=== PATIENT | female | born 1975 | race African-American/Black ===

== ENCOUNTER 2019-09-25 17:30 | Emergency (ER) | payer OTHER ==
[~2019-09-25] VITALS: Ht 160 cm; Wt 181.4 kg
--- OUTSIDE RECORDS SUMMARY | 2019-09-25 17:33 | XMS REPORT ---
[facility] Address Unknown Phone Unavailable Care Team Providers Care Chute Tapper Name Role Phone Unavailable Unavailable Payers Payer Name Policy Type Policy Number Effective Date Expiration Date Problems This patient has no known problems. Allergies, Adverse Reactions, Alerts Allergy Name Allergy Type Status Severity Reaction(s) Onset Date Inactive Date Treating Clinician Comments hydrocodone bit DA Active U 2018-07-14 00:00:00 acetaminophen DA Active U 2018-07-14 00:00:00 levofloxacin DA Active U 2018-07-14 00:00:00 hydrocodone bit DA Active U 2012-10-04 00:00:00 acetaminophen DA Active U 2012-10-04 00:00:00 levofloxacin DA Active U 2012-10-04 00:00:00 Medications This patient has no known medications.
--- OUTSIDE RECORDS SUMMARY | 2019-09-25 17:35 | XMS REPORT ---
Author Author Admin, [place] Organization Unknown Address Unknown Phone Unavailable PROBLEMS Condition Status Date Provider Notes Hypokalemia, mild active Edward Magañaian [place] Chronic pain syndrome active Edward Roa [place] Cerumen impaction, bilateral active Edward Magañaian [place] Well woman exam active Chuodilia Magañaian [place] BMI 50.0-59.9 active Edward Zoroastrianism [place] BMI 60.0-69.9, adult completed - Edward Magañaian [place] CHF exacerbation active Edward Magañaian [place] Dyspnea at rest active Edward Roa [place] Acute upper respiratory infection active Edward Magañaian [place] Screening for lipid disorder active Edward Magañaian [place] Screening for diabetes mellitus active Edward Magañaian [place] GERD active Edward Magañaian [place] Diabetes mellitus type II active Edward Magañaian [place] Urinary retention active Edward Magañaian [place] Ascites active Edward Roa [place] Abdominal pain, chronic active Edward Magañaian [place] Abdominal distension active Edward Roa [place] Mood Disorder, NOS active Toma Woods Suicidal ideation active Edward Delgado Depression, major active Edward Delgado COPD with exacerbation active Edward Delgado BMI 50.0-59.9 completed - Tiny Vazquez Mckeon Chronic bronchitis active Edward Delgado Breast abnormal findings active Edward Delgado Otitis media, acute completed - Tit[place]veland Calderón MORBID OBESITY active Edwin Umana Candidal vaginitis completed - [place] Sommermi SLEEP APNEA active Comfort Trevino CHF active Comfort Trevino CHRONIC OBSTRUCTIVE PULMONARY DISEASE, ACUTE EXACERBATION completed - Comfort Trevino LOW BACK PAIN active Thea Puppala DEPENDENT EDEMA, LEGS active Annemarie Gaffney HEARING DEFICIT active Baljinderniesha Isabel BLURRED VISION active Baljinder Chalo EAR PAIN, RIGHT completed - Titi Kaitlynn MUSCLE SPASM completed - Titi Kaitlynn HYPERTENSION active Gill Tomlinsondasonia SARCOIDOSIS active Gill Villafuerte NICOTINE ADDICTION active Annemarie Gaffney COPD active Annemarie Gaffney ENCOUNTERS Date Type Provider Location Encounter Diagnosis - Ambulatory Encounter Satinder Delgado [facility] Hypokalemia, mild - Ambulatory Encounter Edward Delgado [facility] UNK - Ambulatory Encounter LSJ Lab Support Desktop LinkLogic Edward Baroneka Zoroastrianism [place] [facility] UNK - Ambulatory Encounter F[facility] - [facility] Encounter Fax Status [facility] UNK - Ambulatory Encounter Fax Status [facility] UNK - Ambulatory Encounter Fax Status [facility] UNK - Ambulatory Encounter Edward Roa [place] Edward Magañaian [place] [facility] UNK - Ambulatory Encounter Edward Roa Nnabuinasir Magañaian [place] [facility] UNK - Ambulatory Encounter Edward Roa [place] Edward Zoroastrianism [place] [facility] UNK - Ambulatory Encounter Satinder Roa [place] Edward Roa [place] Sheryl Odonnell [facility] UNK - Ambulatory Encounter Comfort Pedersen MedAdherence [facility] UNK - Ambulatory Encounter Comfort Christianson MedAdherence [facility] UNK - Ambulatory Encounter Tiara Christianson MedAdherence [facility] UNK - Ambulatory Encounter Edward [place] Edward Roa [place] [facility] - [facility]iris [facility] - Ambulatory Encounter Chuodilia Zoroastrianism [place] Gautamwlinda Zoroastrianism [place] LinkLogic [facility] UNK - Ambulatory Encounter Comfort Christianson MedAdherence [facility] UNK - Ambulatory Encounter Chuodilia Zoroastrianism [place] Chuodilia Zoroastrianism [place] [facility] UNK - Ambulatory Encounter Chukkavin Zoroastrianism [place] Chuvidhyawlinda Zoroastrianism [place] [facility] UNK - Ambulatory Encounter Chukkavin Zoroastrianism [place] Chuvidhyawlinda Zoroastrianism [place] [facility] UNK - Ambulatory Encounter Satinder Leon Zoroastrianism [place] Chukwuekathya Zoroastrianism [place] [facility] Chronic pain syndrome - Ambulatory Encounter Chukkavin Zoroastrianism [place] Chukwuekathya Zoroastrianism [place] [facility] UNK - Ambulatory Encounter LSJ Lab Support Desktop LinkLogic Jamarkwlinda Zoroastrianism [place] Chukwuekathya Zoroastrianism [place] [facility] UNK - Ambulatory Encounter Chukkavin Zoroastrianism [place] Jamarkwuekathya Zoroastrianism [place] [facility] UNK - Ambulatory Encounter Chukkavin Zoroastrianism [place] Chukwlinda Zoroastrianism [place] [facility] UNK - Ambulatory Encounter Comfort Leon Zoroastrianism [place] Roa [place] Osorio Benítez [facility] Well woman examCerumen impaction, bilateral - Ambulatory Encounter Satinder Christianson MedAdherence [facility] UNK - Ambulatory Encounter Satinder Christianson MedAdherence Eusebia Gagnon [employer] UNK - Ambulatory Encounter Satinder Christianson MedAdherence Chukwfabiánmejose j Magañaian [place] Edward Roa [place] Eusebia Gagnon [facility] UNK - Ambulatory Encounter Satinder Christianson MedAdherence [facility] UNK - Ambulatory Encounter Tiara Christianson MedAdherence [facility] UNK - Ambulatory Encounter Edward Roa [place] Edward Magañaian [place] LinkLogic [facility] UNK - Ambulatory Encounter Edward Whiteabuinasir Florezwlinda Zoroastrianism [place] LinkLogic [facility] UNK - Ambulatory Encounter Satinder Christianson MedAdherence [facility] UNK - Ambulatory Encounter Satinder Harman LinkLogic [facility] UNK - Ambulatory Encounter Fax Status LinkLogic [facility] UNK - Ambulatory Encounter Fax Status LinkLogic [facility] UNK - Ambulatory Encounter Fax Status LinkLogic [facility] UNK - Ambulatory Encounter Fax Status LinkLogic [facility] UNK - Ambulatory Encounter Fax Status LinkLogic [facility] UNK - Ambulatory Encounter Fax Status [facility] Services UNK - Ambulatory Encounter Satinder Harman Jonelle Hameedna [facility] UNK - Ambulatory Encounter Tiara Christianson MedAdherence Satinder Enegl [facility] Contact Center UNK - Ambulatory Encounter Kimberly Magañaian [place] Edward Roa [place] [facility] Contact Center UNK - Ambulatory Encounter Satinder Christianson MedAdherence [facility] UNK - Ambulatory Encounter Satinder Harman [facility]K - Ambulatory Encounter Fax Status [facility] Services UNK - Ambulatory Encounter Lo Esquivel Tiara Christianson MedAdherence [facility] UNK - Ambulatory Encounter Edward Roa [place] Edward Zoroastrianism [place] LinkLogic [facility] UNK - Ambulatory Encounter Edward Zoroastrianism [place] Edward Zoroastrianism [place] LinkLogic [facility] UNK - Ambulatory Encounter Chuvidhyawlinda Zoroastrianism [place] Edward Zoroastrianism [place] [facility] UNK - Ambulatory Encounter Chuodilia Zoroastrianism [place] Edward Zoroastrianism [place] [facility] UNK - Ambulatory Encounter Chukkavin Zoroastrianism [place] Chukwuemejose j Whiteabuinasir [facility] UNK - Ambulatory Encounter Lo Esquivel Stephanie Roldankwuemejose j Whiteabuinasir Florezwuemejose j Whiteabuinasir [facility] BMI 60.0-69.9, adultBMI 50.0-59.9 - Ambulatory Encounter Alayna Nava [facility] Services UNK - Ambulatory Encounter Kayla Ruel [facility] UNK - Ambulatory Encounter Kayla Ruel [facility] UNK - Ambulatory Encounter Edward Roldankwuemejose j Byoceuinasir Kaylakaylin Lipscomb [facility] UNK - Ambulatory Encounter Satinder Christianson MedAdherence Kayla Roldankwuemejose j Roldankwuemejose j Reich [facility] UNK - Ambulatory Encounter Fax Status [facility] UNK - Ambulatory Encounter Fax Status [facility] UNK - Ambulatory Encounter Fax Status [facility] UNK - Ambulatory Encounter Fax Status [facility] UNK - Ambulatory Encounter Bhavya Pedersen MedAdherence Clementine Velasquez [facility] UNK - Ambulatory Encounter Edward Florezwlinda Boyceuinasir [facility] UNK - Ambulatory Encounter Ewdard Boyceuinasir [facility] UNK - Ambulatory Encounter Edward [place] Edward Zoroastrianism [place] [facility] UNK - Ambulatory Encounter Comfort Roa [place] Edward Zoroastrianism [place] [facility] Dyspnea at restCHF exacerbation - Ambulatory Encounter Tiny Vazquez Mckeon Tiny Vazquez Mckeon [facility] - [facility]ulatory Encounter Tiny Vazquez Mckeon Tiny Vazquez Mckeon Violette Yuri [facility] BMI 50.0-59.9BMI 60.0-69.9, adult - Ambulatory Encounter Kayla Lipscomb [facility] UNK - Ambulatory Encounter Satinder Christianson [facility] Francesca Potts [facility] Contact Center UNK - Ambulatory Encounter Violette Lipscomb [facility] UNK - Ambulatory Encounter Edward [place] [facility] [place] [facility] - [facility]ulatory Encounter Edward Zoroastrianism [place] Edward Zoroastrianism [place] [facility] Practice UNK - Ambulatory Encounter Edward Magañaian [place] Edward Zoroastrianism [place] [facility] UNK - Ambulatory Encounter Edward [place] Edward Magañaian [place] [facility] UNK - Ambulatory Encounter Edward [place] Edward Zoroastrianism [place] [facility] UNK - Ambulatory Encounter iGll Florezwlinda Roa [place] Edward Magañaian [place] Violette Yuri Bakereca Suman [facility] Acute upper respiratory infection - Ambulatory Encounter Bhavya Pedersen MedAdherence [facility] UNK - Ambulatory Encounter Satinder Harman LinkLogic [facility] UNK - Ambulatory Encounter Bhavya Pedersen [facility] UNK - Ambulatory Encounter Comfort Trevino [facility] UNK - Ambulatory [facility] - [facility]ulatory Encounter [facility] - [facility]ulatory Encounter Fax [facility] UNK - Ambulatory Encounter Fax [facility] UNK - Ambulatory Encounter Alayna Chapman [facility] UNK - Ambulatory Encounter Edward [place] Edward Zoroastrianism [place] [facility] UNK - Ambulatory Encounter Edward [place] Edward Zoroastrianism [place] [facility] UNK - Ambulatory Encounter Edward [place] Edward Zoroastrianism [place] [facility] UNK - Ambulatory Encounter Satinder Roa [place] Chukwuemeka Zoroastrianism [place] Priya Mars [facility] UNK - Ambulatory Encounter Parris Oleary [facility] UNK - Ambulatory Encounter Chukwuemejose j Zoroastrianism [place] Chukwuemejose j Zoroastrianism [place] LinkLogic [facility] UNK - Ambulatory Encounter Bhavya Bermudezo MedAdherence Kirsten Ibarra Chukwuemeka Zoroastrianism [place] Chukwuemejose j Zoroastrianism [place] Raysa Potts [facility] Contact Center UNK - Ambulatory Encounter Chukwuemejose j Zoroastrianism [place] Chukwuemejose j Zoroastrianism [place] [facility] UNK - Ambulatory Encounter Chukwuemejose j Zoroastrianism [place] Chukwuemejose j Zoroastrianism [place] [facility] UNK - Ambulatory Encounter Chukwuemejose j Zoroastrianism [place] Chukwuemejose j Zoroastrianism [place] [facility] UNK - Ambulatory Encounter Chukwuemejose j Zoroastrianism [place] Chukwuemejose j Zoroastrianism [place] [facility] UNK - Ambulatory Encounter Gill Chapman Chukwuemejose j Zoroastrianism [place] Chukwuemejose j Zoroastrianism [place] [facility] UNK - Ambulatory Encounter Bhavya Pedersen MedAdherence [facility] UNK - Ambulatory Encounter Kayla Serrano [facility] Center UNK - Ambulatory Encounter Chukwuemejose j Zoroastrianism [place] Chukwuemejose j Zoroastrianism [place] [facility] UNK - Ambulatory Encounter Tabjessica Chang [facility] UNK - Ambulatory Encounter Chukwuekathya Zoroastrianism [place] Chukwfabiánmejose j Zoroastrianism [place] [facility] UNK - Ambulatory Encounter Chukwuemejose j Zoroastrianism [place] Chukwuemejose j Zoroastrianism [place] [facility] UNK - Ambulatory Encounter LSJ Lab Support Desktop LinkLogic Tab Florezwlinda Zoroastrianism [place] Chukwuemejose j Zoroastrianism [place] [facility] UNK - Ambulatory Encounter Chukwlinda Zoroastrianism [place] Jamarkwlinda Zoroastrianism [place] [facility] UNK - Ambulatory Encounter Chukwlinda Zoroastrianism [place] Chukwuekathya Zoroastrianism [place] [facility] UNK - Ambulatory Encounter Chukwuekathya Zoroastrianism [place] Chukwuemejose j Zoroastrianism [place] [facility] UNK - Ambulatory Encounter Comfort Christianson MedAdherence Chukwuekathya Zoroastrianism [place] Chukwuemejose j Zoroastrianism [place] Marielena Reich [facility] Screening for diabetes mellitusScreening for lipid disorder - Ambulatory Encounter Chukwlinda Zoroastrianism [place] Chukwlinda Zoroastrianism [place] [facility] GERD - Ambulatory Encounter Chukwlinda Zoroastrianism [place] Gautamwlinda Zoroastrianism Nnab[place]asir Isabel [facility] UNK - Ambulatory Encounter Chukkavin Zoroastrianism [place] Edward Zoroastrianism [place] [facility] UNK - Ambulatory Encounter Tab Leon Zoroastrianism [place] Chuodilia Zoroastrianism [place] Vivian Oleg Mary [facility] Contact Center UNK - Ambulatory Encounter Chukwlinda Zoroastrianism [place] Edward Zoroastrianism [place] [facility] UNK - Ambulatory Encounter Chukwlinda Zoroastrianism [place] Gautamwlinda Zoroastrianism [place] [facility] UNK - Ambulatory Encounter Chukkavin Zoroastrianism [place] Chukwlinda Zoroastrianism [place] [facility] UNK - Ambulatory Encounter Comfort Leon Zoroastrianism [place] Gautamwfabiánmejose j Zoroastrianism [place] [facility] Diabetes mellitus type II - Ambulatory Encounter Chuodilia Zoroastrianism [place] Gautamwlinda Zoroastrianism [place] LinkLogic [facility] UNK - Ambulatory Encounter Chukkavin Zoroastrianism [place] Jamarkwuekathya Zoroastrianism [place] LinkLogic [facility] UNK - Ambulatory Encounter Loly Winslow [facility] UNK - Ambulatory Encounter Chukwlinda Zoroastrianism [place] Gautamwlinda Zoroastrianism [place] LinkLogic [facility] UNK - Ambulatory Encounter Chuodilia Zoroastrianism [place] Edward Zoroastrianism [place] [facility] UNK - Ambulatory Encounter Chukwlinda Zoroastrianism [place] Chuodilia Zoroastrianism [place] [facility] UNK - Ambulatory Encounter Chukkavin Zoroastrianism [place] Chuodilia Zoroastrianism [place] [facility] UNK - Ambulatory Encounter Chuodilia Zoroastrianism [place] Edward Zoroastrianism [place] [facility] UNK - Ambulatory Encounter Satinder Florezwlinda Zoroastrianism [place] Edward Zoroastrianism [place] [facility] UNK - Ambulatory Encounter Tiara Christianson MedAdherence [facility] UNK - Ambulatory Encounter Bhavya Pedersen MedAdherence [facility] UNK - Ambulatory Encounter Bhavya Pedersen MedAdherence LinkLogic [facility] UNK - Ambulatory Encounter Titi Kaitlynn Titi Kaitlynn LinkLogic [facility] UNK - Ambulatory Encounter Chuodilia Zoroastrianism [place] Edward Zoroastrianism [place] LinkLogic [facility] UNK - Ambulatory Encounter Chuodilia Zoroastrianism [place] Edward Zoroastrianism [place] LinkLogic [facility] UNK - Ambulatory Encounter Chukkavin Zoroastrianism [place] Edward Zoroastrianism [place] [facility] UNK - Ambulatory Encounter Chukkavin Zoroastrianism [place] Chuodilia Zoroastrianism [place] [facility] UNK - Ambulatory Encounter Edward Zoroastrianism [place] Chuodilia Zoroastrianism [place] [facility] UNK - Ambulatory Encounter Edward Zoroastrianism [place] Edward Zoroastrianism [place] [facility] UNK - Ambulatory Encounter Comfort Krausa Jamarodilia Zoroastrianism [place] [facility] Zoroastrianism [place] [facility] Abdominal distensionAbdominal pain, chronicAscitesUrinary retention - Ambulatory Encounter Tiara Christianson MedAdherence [facility] UNK - Ambulatory Encounter Tiara Christianson MedAdherence [facility] - Ambulatory Encounter Tiara Christianson [facility]herence [facility] UNK - Ambulatory Encounter Comfort Trevino [facility] UNK - Ambulatory Encounter Mae Rodney [facility] UNK - Ambulatory Encounter Fax Status [facility]ic [facility] UNK - Ambulatory Encounter Fax Status [facility]ic [facility] UNK - Ambulatory Encounter Fax Status Link[facility]ic [facility] UNK - Ambulatory Encounter Fax Status Link[facility] UNK - Ambulatory Encounter Fax Status Link[facility]ic [facility] UNK - Ambulatory Encounter Fax Status [facility]ic [facility] UNK - Ambulatory Encounter Edward Zoroastrianism [place] Gautamwlinda Zoroastrianism [place] [facility] UNK - Ambulatory Encounter Chuodilia Zoroastrianism [place] Edward Zoroastrianism [place] [facility] UNK - Ambulatory Encounter Edward Zoroastrianism [place] Edward Zoroastrianism [place] [facility] UNK - Ambulatory Encounter Toma Woods [facility] Mood Disorder, NOS - Ambulatory Encounter Lo Josephuekathya Magañaian [place] Edward Zoroastrianism [place] Vivian Matthews [facility] Depression, majorSuicidal ideation - Ambulatory Encounter Comfort Trevino LinkLog [facility] UNK - Ambulatory [facility] - Ambulatory Encounter Bhavya Pedersen MedAdherence [facility] UNK - Ambulatory Encounter Bhavya Pedersen MedAdherence LinkLogic [facility] UNK - Ambulatory Encounter Edward Zoroastrianism [place] Edward Zoroastrianism [place] [facility] UNK - Ambulatory Encounter Edward Zoroastrianism [place] Gautamwlinda Zoroastrianism [place] [facility] UNK - Ambulatory Encounter Edward Zoroastrianism [place] Edward Zoroastrianism [place] [facility] UNK - Ambulatory Encounter Edward Zoroastrianism [place] Gautamwlinda Zoroastrianism [place] [facility] UNK - Ambulatory Encounter Chuodilia Zoroastrianism [place] Gautamwlinda Zoroastrianism [place] [facility] UNK - Ambulatory Encounter Gill Florezwuekathya Zoroastrianism [place] Gautamwlinda Zoroastrianism [place] [facility] UNK - Ambulatory Encounter Loly Winslow [facility] UNK - Ambulatory Encounter Tiara Christianson [facility] - [facility]ulatory Encounter Edward Roa [place] Edward Zoroastrianism [place] [facility] UNK - Ambulatory Encounter Bhavya Pedersen MedAdherence [facility] UNK - Ambulatory Encounter Bhavya Pedersen MedAdherence LinkLogic [facility] UNK - Ambulatory Encounter Edward [place] Edward Zoroastrianism [place] Tab Matthews [facility] UNK - Ambulatory Encounter Comfort Trevino LinkLogic [facility] UNK - Ambulatory Encounter Edward Magañaian [place] Edward Zoroastrianism [place] [facility] UNK - Ambulatory Encounter Edward Zoroastrianism [place] Gautamwlinda Zoroastrianism [place] [facility] UNK - Ambulatory Encounter Edward Whiteabuinasir Roa [place] [facility] UNK - Ambulatory Encounter Edward Whiteabjaimie Roa [place] [facility] UNK - Ambulatory Encounter Comfort Roa [place] Edward Roa [place] [facility] COPD with exacerbation - Ambulatory Encounter Tiara Christianson MedAdherence [facility] UNK - Ambulatory Encounter Tiara Christianson MedAdherfaheem Kaminskicey [facility] Services UNK - Ambulatory Encounter Tiara Christianson MedAdherence [facility] UNK - Ambulatory Encounter Edward Whiteabjaimie Roa [place] [facility] UNK - Ambulatory Encounter Edward Whiteabjaimie Leon Zoroastrianism [place] [facility] UNK - Ambulatory Encounter Gill Whiteabuinasir Whiteabuife [facility] UNK - Ambulatory Encounter Loly Winslow Donna Sabiha [facility] UNK - Ambulatory Encounter Edward Whiteabuinasir Roa [place] [facility] UNK - Ambulatory Encounter Loly Winslow Donna Sabiha [facility] UNK - Ambulatory Encounter Fax Status [facility]ic [facility] UNK - Ambulatory Encounter Fax Status LinkLogic [facility] UNK - Ambulatory Encounter Fax Status LinkLogic [facility] UNK - Ambulatory Encounter Fax Status [facility]Logic [facility] UNK - Ambulatory Encounter Fax Status LinkLogic [facility] UNK - Ambulatory Encounter Fax Status LinkLogic [facility] UNK - Ambulatory Encounter Titi Kaitlynn Titi Kaitlynn [facility] UNK - Ambulatory Encounter Titi Kaitlynn Titi Kaitlynn [facility] UNK - Ambulatory Encounter Titi Kaitlynn Titi Kaitlynn [facility] UNK - Ambulatory Encounter Lo Gu Titi Kaitlynn Titi Kaitlynn [facility] MUSCLE SPASMEAR PAIN, RIGHTCandidal vaginitisOtitis media, acute - Ambulatory Encounter Satinder Gu [facility] UNK - Ambulatory Encounter Fax Status [facility]ic [facility] UNK - Ambulatory Encounter Fax Status LinkLogic [facility] UNK - Ambulatory Encounter Fax Status [facility]Logic [facility] UNK - Ambulatory Encounter Bhavya Palacio [facility] UNK - Ambulatory Encounter Edward Whiteabjaimie Whiteabuinasir [facility] UNK - Ambulatory Encounter Satinder Matthews [facility] Breast abnormal findingsChronic bronchitisBMI 50.0-59.9 - Ambulatory Encounter Comfort Trevino LinkLogic [facility] UNK - Ambulatory Encounter Tiara Christianson MedAdherence [facility] UNK - Ambulatory Encounter Tiara Christianson MedAdherence LinkLogic [facility] UNK - Ambulatory Encounter Bhavya Pedersen MedAdherence [facility] UNK - Ambulatory Encounter Bhavya Pedersen MedAdherence [facility] UNK - Ambulatory Encounter Madhumita Sierra [facility] UNK - Ambulatory Encounter Yonnyhubrooke Sierra [facility] UNK - Ambulatory Encounter Bhavya Pedersen MedAdherence Stephanie Hernandez [facility] Contact Center UNK - Ambulatory Encounter Madhumita Sierra [facility] UNK - Ambulatory Encounter Madhumita Sierra [facility] UNK - Ambulatory Encounter Madhumita Sierra [facility] UNK - Ambulatory Encounter Nupur Chong [facility] UNK - Ambulatory Encounter Nupur Chong [facility] UNK - Ambulatory Encounter Edwin Umana [facility] UNK - Ambulatory Encounter Edwin Umana [facility] UNK - Ambulatory Encounter Edwin Umana [facility] UNK - Ambulatory [facility] MORBID OBESITYOtitis media, acute - Ambulatory Encounter Yeimykaylin Beard [facility] UNK - Ambulatory Encounter Lo Esquivel [facility] UNK - Ambulatory Encounter Lo Lucasssica Gamino [facility] Candidal vaginitis - Ambulatory Encounter Lo Esquivel [facility] UNK - Ambulatory Encounter Breana Rosario [facility] UNK - Ambulatory Encounter Breana Rosario [facility] UNK - Ambulatory Encounter Mary Soto [facility] UNK - Ambulatory Encounter Fabricio Beard [facility] UNK - Ambulatory Encounter Bria Young [facility] UNK - [facility]ricio Beard [facility] - [facility]ulatory Encounter Gita Dewey [facility] UNK - Ambulatory Encounter Comfort Trevino [facility] UNK - Ambulatory Encounter [facility] Encounter Comfort Trevino [facility] UNK - Ambulatory Encounter Carmelina Gu [facility] UNK - Ambulatory Encounter Jan Johnson [facility] Expert UNK - Ambulatory Encounter Fax Status LinkLogic [facility] UNK - Ambulatory Encounter Fax Status LinkLogic [facility] UNK - Ambulatory Encounter Fax Status LinkLogic [facility] UNK - Ambulatory Encounter Deniz Lira [facility] UNK - [facility] - Ambulatory Encounter Comfort Trevino [facility] UNK - Ambulatory Encounter Comfort Trevino [facility] UNK - Ambulatory Encounter Comfort Trevino [facility] UNK - Ambulatory Encounter Fax Status Link[facility] UNK - Ambulatory Encounter Fax Status [facility] UNK - Ambulatory Encounter Comfort Trevino [facility] UNK - Ambulatory Encounter Fax Status [facility] UNK - Ambulatory Encounter Fax Status [facility] UNK - Ambulatory Encounter Comfort Trevino [facility] UNK - Ambulatory Encounter Comfort Trevino [facility] UNK - Ambulatory Encounter Comfort Trevino [facility] UNK - Ambulatory Encounter Comfort Trevino [facility] UNK - Ambulatory Encounter Kimberly Pedersen MedAdherfaheem Woodselia Gaston [facility] UNK - Ambulatory Encounter Kimberly Trevino [facility] UNK - Ambulatory Encounter Tab Chang [facility] UNK - Ambulatory Encounter Fax Status Link[facility] UNK - Ambulatory Encounter Fax Status [facility] UNK - Ambulatory Encounter Fax Status [facility] UNK - Ambulatory Encounter Kimberly Trevino [facility] UNK - Ambulatory Encounter Comfort Trevino [facility] UNK - Ambulatory Encounter Comfort Trevino [facility] - Ambulatory Encounter Fax Status LinkLogic [facility] UNK - Ambulatory Encounter Jneny Gaston [facility] UNK - Ambulatory Encounter Fax Status LinkLogic [facility] UNK - Ambulatory Encounter Fax Status [facility] UNK - Ambulatory Encounter Comfort Trevino [facility] UNK - Ambulatory Encounter Kimberly Trevino [facility] UNK - Ambulatory Encounter Comfort Trevino [facility]ic [facility] - [facility] Encounter [facility] - [facility]ulatory Encounter Gosia Trevino [facility] UNK - Ambulatory Encounter Comfort Trevino LinkLogedward Mayes [facility] UNK - Ambulatory Encounter Comfort Tellez [facility] CHRONIC OBSTRUCTIVE PULMONARY DISEASE, ACUTE EXACERBATIONCHFSLEEP APNEA - Ambulatory Encounter Gill [facility] - [facility] Encounter F[facility] UNK - Ambulatory Encounter Fax Status [facility] UNK - Ambulatory Encounter Fax Status LinkLogic [facility] UNK - Ambulatory Encounter Fax Status [facility] - Ambulatory Encounter Fax Status LinkLogic [facility] UNK - Ambulatory Encounter Fax Status LinkLogic [facility] UNK - Ambulatory Encounter Fax Status [facility] - Ambulatory Encounter Jenny Gaston [facility] UNK - Ambulatory Encounter Thea Patitopala [facility] [place] Rosalinda Ward [facility] LOW BACK PAIN - Ambulatory Encounter Sabra Mitchell [facility] UNK - Ambulatory Encounter Sabra Stephen [facility] UNK - Ambulatory Encounter Ernesto Gaffney [facility] DEPENDENT EDEMA, LEGS - Ambulatory Encounter Bhavya Pedersen MedAdherence [facility] UNK - Ambulatory Encounter Bhavya Pedersen [facility] UNK - Ambulatory Encounter Jonelle [facility] UNK - Ambulatory Encounter Jonelle [facility] UNK - Ambulatory Encounter Jonelle [facility] UNK - Ambulatory Encounter Jonelle [facility] UNK - Ambulatory Encounter Jonelle [facility] UNK - Ambulatory Encounter Malena Isabel [facility] UNK - Ambulatory Encounter Ernesto Matthews [facility] EAR PAIN, RIGHTBLURRED VISIONHEARING DEFICIT - Ambulatory Encounter Jehovah'S Witness Preload LinkLogic [facility] UNK - Ambulatory Encounter Jehovah'S Witness Preload LinkLogic [facility] UNK - Ambulatory Encounter Jehovah'S Witness Preload LinkLogic [facility] UNK - Ambulatory Encounter Jehovah'S Witness Preload LinkLogic [facility] UNK - Ambulatory Encounter Jehovah'S Witness Preload LinkLogic [facility] UNK - Ambulatory Encounter Jehovah'S Witness Preload LinkLog[facility] UNK - Ambulatory Encounter Jehovah'S Witness Preload LinkLogic [facility] UNK - Ambulatory Encounter Jehovah'S Witness Preload LinkLogic [facility] UNK - Ambulatory Encounter Jehovah'S Witness Preload [facility] UNK - Ambulatory Encounter Jehovah'S Witness Preload [facility]ic [facility] UNK - Ambulatory Encounter Jehovah'S Witness Preload [facility]ic [facility] UNK - Ambulatory Encounter Jehovah'S Witness Preload [facility]ic [facility] UNK - Ambulatory Encounter Jehovah'S Witness Preload [facility]ic [facility] UNK - Ambulatory Encounter Jehovah'S Witness Preload [facility]ic [facility] UNK - Ambulatory Encounter Jehovah'S Witness Preload [facility]ic [facility] UNK - Ambulatory Encounter Jehovah'S Witness Preload [facility]ic [facility] UNK - Ambulatory Encounter Jehovah'S Witness Preload [facility]ic [facility] UNK - Ambulatory Encounter Jehovah'S Witness Preload [facility]ic [facility] UNK - Ambulatory Encounter Jehovah'S Witness Preload [facility]ic [facility] UNK - Ambulatory Encounter Jehovah'S Witness Preload [facility]ic [facility] UNK - Ambulatory Encounter Jehovah'S Witness Preload [facility]ic [facility] UNK - Ambulatory Encounter Jehovah'S Witness Preload [facility]ic [facility] UNK - Ambulatory Encounter Jehovah'S Witness Preload [facility]ic [facility] UNK - Ambulatory Encounter Jehovah'S Witness Preload [facility] UNK - Ambulatory Encounter Jehovah'S Witness Preload [facility] UNK - Ambulatory Encounter Jehovah'S Witness Preload [facility] UNK - Ambulatory Encounter Jehovah'S Witness Preload [facility] UNK - Ambulatory Encounter Jehovah'S Witness Preload [facility] UNK - Ambulatory Encounter Jehovah'S Witness Preload [facility]ic [facility] UNK - Ambulatory Encounter Jehovah'S Witness Preload [facility]ic [facility] UNK - Ambulatory Encounter Jehovah'S Witness Preload [facility] UNK - Ambulatory Encounter Jehovah'S Witness Preload Link[facility]ic [facility] UNK - Ambulatory Encounter Jehovah'S Witness Preload [facility] UNK - Ambulatory Encounter Jehovah'S Witness Preload LinkLogic [facility] UNK - Ambulatory Encounter Jehovah'S Witness Preload LinkLogic [facility] UNK - Ambulatory Encounter Jehovah'S Witness Preload Link[facility]ic [facility] UNK - Ambulatory Encounter Jehovah'S Witness Preload [facility] UNK - Ambulatory Encounter Jehovah'S Witness Preload LinkLogic [facility] UNK - Ambulatory Encounter Jehovah'S Witness Preload LinkLogic [facility] UNK - Ambulatory Encounter Jehovah'S Witness Preload LinkLogic [facility] UNK - Ambulatory Encounter Jehovah'S Witness Preload LinkLogic [facility] UNK - Ambulatory Encounter Jehovah'S Witness Preload LinkLogic [facility] UNK - Ambulatory Encounter Jehovah'S Witness Preload LinkLog[facility] UNK - Ambulatory Encounter Jehovah'S Witness Preload Link[facility] UNK - Ambulatory Encounter Jehovah'S Witness Preload LinkLogic [facility] UNK - Ambulatory Encounter Jehovah'S Witness Preload Link[facility] UNK - Ambulatory Encounter Jehovah'S Witness Preload [facility] UNK - Ambulatory Encounter Jehovah'S Witness Preload [facility]ic [facility] UNK - Ambulatory Encounter Jehovah'S Witness Preload LinkLogic [facility] UNK - Ambulatory Encounter Jehovah'S Witness Preload LinkLog[facility] UNK - Ambulatory Encounter Jehovah'S Witness Preload [facility] UNK - Ambulatory Encounter Jehovah'S Witness Preload [facility] UNK - Ambulatory Encounter Jehovah'S Witness Preload LinkLogic [facility] UNK - Ambulatory Encounter Jehovah'S Witness Preload LinkLog[facility] UNK - Ambulatory Encounter Jehovah'S Witness Preload Link[facility] UNK - Ambulatory Encounter Jehovah'S Witness Preload LinkLog[facility] UNK - Ambulatory Encounter Jehovah'S Witness Preload LinkLog[facility] UNK - Ambulatory Encounter Jehovah'S Witness Preload Link[facility] UNK - Ambulatory Encounter Jehovah'S Witness Preload [facility] UNK - Ambulatory Encounter Jehovah'S Witness Preload Link[facility] UNK - Ambulatory Encounter Jehovah'S Witness Preload LinkLogic [facility] UNK - Ambulatory Encounter Jehovah'S Witness Preload Link[facility] UNK - Ambulatory Encounter Jehovah'S Witness Preload Link[facility] UNK - Ambulatory Encounter Jehovah'S Witness Preload LinkLogic [facility] UNK - Ambulatory Encounter Jehovah'S Witness Preload LinkLogic [facility] UNK - Ambulatory Encounter Jehovah'S Witness Preload [facility]ic [facility] UNK - Ambulatory Encounter Jehovah'S Witness Preload [facility] UNK - Ambulatory Encounter Jehovah'S Witness Preload [facility] UNK - Ambulatory Encounter Sharpetaniya Gaffney [facility] UNK - Ambulatory Encounter Jehovah'S Witness Preload [facility] UNK - Ambulatory Encounter Jehovah'S Witness Preload [facility] UNK - Ambulatory Encounter Jehovah'S Witness Preload LinkLogic [facility] UNK - Ambulatory Encounter Jehovah'S Witness Preload LinkLogic [facility] UNK - Ambulatory Encounter Jehovah'S Witness Preload [facility]ic [facility] UNK - Ambulatory Encounter Jehovah'S Witness Preload Link[facility] UNK - Ambulatory Encounter Jehovah'S Witness Preload [facility] UNK - Ambulatory Encounter Jehovah'S Witness Preload Link[facility]ic [facility] UNK - Ambulatory Encounter Jehovah'S Witness Preload [facility] UNK - Ambulatory Encounter Jehovah'S Witness Preload [facility] UNK - Ambulatory Encounter Jehovah'S Witness Preload Link[facility]ic [facility] UNK - Ambulatory Encounter Jehovah'S Witness Preload [facility] UNK - Ambulatory Encounter Jehovah'S Witness Preload [facility] UNK - Ambulatory Encounter Jehovah'S Witness Preload Link[facility]ic [facility] UNK - Ambulatory Encounter Jehovah'S Witness Preload [facility]ic [facility] UNK - Ambulatory Encounter Jehovah'S Witness Preload [facility] UNK - Ambulatory Encounter Jehovah'S Witness Preload [facility] UNK - Ambulatory Encounter Jehovah'S Witness Preload [facility] UNK - Ambulatory Encounter Jehovah'S Witness Preload [facility] UNK - Ambulatory Encounter Jehovah'S Witness Preload [facility] UNK - Ambulatory Encounter Jehovah'S Witness Preload [facility] UNK - Ambulatory Encounter Jehovah'S Witness Preload [facility] UNK - Ambulatory Encounter Jehovah'S Witness Preload [facility]ic [facility] UNK - Ambulatory Encounter Jehovah'S Witness Preload [facility] UNK - Ambulatory Encounter Jehovah'S Witness Preload [facility] UNK - Ambulatory Encounter Jehovah'S Witness Preload [facility] UNK - Ambulatory Encounter Jehovah'S Witness Preload [facility] UNK - Ambulatory Encounter Jehovah'S Witness Preload [facility]ic [facility] UNK - Ambulatory Encounter Jehovah'S Witness Preload [facility]ic [facility] UNK - Ambulatory Encounter Jehovah'S Witness Preload [facility]ic [facility] UNK - Ambulatory Encounter Jehovah'S Witness Preload Link[facility]ic [facility] UNK - Ambulatory Encounter Jehovah'S Witness Preload Link[facility]ic [facility] UNK - Ambulatory Encounter Jehovah'S Witness Preload Link[facility]ic [facility] UNK - Ambulatory Encounter Jehovah'S Witness Preload Link[facility]ic [facility] UNK - Ambulatory Encounter Jehovah'S Witness Preload [facility]ic [facility] UNK - Ambulatory Encounter Jehovah'S Witness Preload [facility] UNK - Ambulatory Encounter Jehovah'S Witness Preload [facility]ic [facility] UNK - Ambulatory Encounter Jehovah'S Witness Preload Link[facility] UNK - Ambulatory Encounter Jehovah'S Witness Preload Link[facility] UNK - Ambulatory Encounter Jehovah'S Witness Preload Link[facility] UNK - Ambulatory Encounter Jehovah'S Witness [facility]reload [facility] UNK - Ambulatory Encounter Colleen [facility] UNK - Ambulatory Encounter Sharpetaniya Barbozauyen [facility] UNK - Ambulatory Encounter Gill Villafuerte [facility] Sharpe Vo Sharpe [facility] UNK - Ambulatory Encounter Gill Macias [facility] Sharpe Vo Sharpe [facility] UNK - Ambulatory Encounter Gill Dalton [facility] UNK - Ambulatory Encounter Annemarie Barbozauyen Gulshan Pedersen [facility] UN[facility] - [facility]ulatory Encounter [facility]afuerte [facility] - Ambulatory Encounter Gill Sharpe Vo Annemarie Gutierrez [facility] COPDNICOTINE ADDICTIONSARCOIDOSISHYPERTENSIONMUSCLE SPASM - Ambulatory Encounter [facility] UNK VITAL SIGNS No Information Available ALLERGIES Allergy Name Onset Date Reaction Criticality Status VICODIN swelling, rashes all over skin High Criticality active LEVAQUIN Breakout in Hives High Criticality active REASON FOR REFERRAL Start Date - End Date Service - Cardiology - External - Xray - Pulmonology - External - Xray - Chest - PA & Lat - InHouse RESULTS Date Observation Value Provider Reference Range Interpretation Location alanine aminotransferase (SGPT), serum 50 1/L LinkLogic 0-32 High " aspartate aminotransferase (SGOT), serum 36 1/L [facility] 0-40 " alkaline phosphatase, serum 96 1/L [facility] 39-117 " bilirubin, serum, total 0.2 mg/dL [facility]Logic 0.0-1.2 " albumin/globulin ratio, serum 1.5 [facility] 1.2-2.2 " globulin, serum 3.3 [facility] 1.5-4.5 " albumin, serum 5.1 g/dL [facility] 3.5-5.5 " protein, total, serum 8.4 g/dL [facility] 6.0-8.5 " calcium, serum 9.9 mg/dL [facility] 8.7-10.2 " carbon dioxide, venous blood 31 mmol/L [facility] 20-29 High " chloride, serum 86 mmol/L [facility] 96-106 Low " potassium, serum 3.3 mmol/L [facility] 3.5-5.2 Low " sodium, serum 141 mmol/L [facility]ic 134-144 " urea nitrogen/creatinine ratio, serum 18 [facility] 9-23 " eGFR if 91 mL/min/((173/100).m2) [facility]ic >59 " Estimated Glomerular Filtration Rate (calc) 79 mL/min/((173/100).m2) [facility]ic >59 " creatinine, serum 0.88 mg/dL [facility] 0.57-1.00 " urea nitrogen, blood 16 mg/dL [facility] 6-24 " blood glucose, random 182 mg/dL [facility] 65-99 High " immature granulocytes, percentage of total cells, blood 1 % [facility]ic Not Estab. " basophil count, absolute 0.0 x10E3/uL [facility] 0.0-0.2 " Eosinophil Absolute Count 0.2 X10E3/UL [facility] 0.0-0.4 " monocyte count, blood, automated 0.5 X10E3/UL [facility] 0.1-0.9 " lymphocyte count, blood, automated 2.1 X10E3/UL [facility] 0.7-3.1 " Absolute Neutrophils 9.0 X10E3/UL [facility]ic 1.4-7.0 High " basophils as percent of blood leukocytes 0 % [facility]Logic Not Estab. " eosinophils as percent of blood leukocytes 1 % [facility]ic Not Estab. " monocytes as percent of blood leukocytes 4 % [facility]ic Not Estab. " lymphocytes as percent of blood leukocytes 17 % [facility]ic Not Estab. " neutrophils as percent of blood leukocytes 77 % [facility]ic Not Estab. " platelet count 592 X10E3/UL [facility] 150-450 High " red blood cell distribution width 13.7 % [facility] 12.3-15.4 " mean corpuscular hemoglobin concentration, RBC 32.4 G/DL [facility] 31.5-35.7 " mean corpuscular hemoglobin, RBC 29.1 pg [facility] 26.6-33.0 " mean corpuscular volume, RBC 90 fL [facility] 79-97 " hematocrit, blood 36.7 % [facility] 34.0-46.6 " hemoglobin, blood 11.9 g/dL [facility] 11.1-15.9 " erythrocyte (RBC) count 4.09 X10E6/UL [facility] 3.77-5.28 " leukocyte count, blood 11.8 X10E3/UL [facility] 3.4-10.8 High hemoglobin A1C, blood, as % of total hemoglobin 7.3 % Edward Delgado hepatitis B surface antigen Negative LinkLogic Negative " HIV-CMIA (Chemiluminescent Microparticle Immuno Assay) Non Reactive LinkLogic Non Reactive " rapid plasma reagin antibody, serum Non Reactive LinkLogic Non Reactive " hemoglobin A1C, blood, as % of total hemoglobin 8.0 % [facility] 4.8-5.6 High " microalbumin/creatinine ratio, urine <18.4 mg/g creat [facility] 0.0-30.0 " microalbumin/total urine volume <3.0 ug/mL [facility] Not Estab. " creatinine, random, urine 16.3 mg/dL [facility] Not Estab. " LDL cholesterol, serum 93 mg/dL [facility] 0-99 " very low density lipoproteins 51 mg/dL [facility] 5-40 High " HDL cholesterol, serum 50 mg/dL [facility] >39 " triglyceride, serum, fasting 255 mg/dL [facility] 0-149 High " cholesterol, serum 194 mg/dL [facility] 100-199 " alanine aminotransferase (SGPT), serum 41 1/L [facility] 0-32 High " aspartate aminotransferase (SGOT), serum 28 1/L [facility] 0-40 " alkaline phosphatase, serum 90 1/L [facility] 39-117 " bilirubin, serum, total <0.2 mg/dL [facility] 0.0-1.2 " albumin/globulin ratio, serum 1.5 [facility] 1.2-2.2 " globulin, serum 3.3 [facility]ic 1.5-4.5 " albumin, serum 4.8 g/dL [facility] 3.5-5.5 " protein, total, serum 8.1 g/dL [facility] 6.0-8.5 " calcium, serum 9.9 mg/dL [facility] 8.7-10.2 " carbon dioxide, venous blood 35 mmol/L [facility] 20-29 High " chloride, serum 86 mmol/L [facility] 96-106 Low " potassium, serum 3.7 mmol/L [facility] 3.5-5.2 " sodium, serum 139 mmol/L [facility] 134-144 " urea nitrogen/creatinine ratio, serum 16 [facility] 9-23 " eGFR if 85 mL/min/((173/100).m2) [facility] >59 " Estimated Glomerular Filtration Rate (calc) 74 mL/min/((173/100).m2) [facility]ic >59 " creatinine, serum 0.94 mg/dL [facility] 0.57-1.00 " urea nitrogen, blood 15 mg/dL [facility] 6-24 " blood glucose, random 176 mg/dL [facility] 65-99 High " immature granulocytes, percentage of total cells, blood 1 % [employer] Not Estab. " basophil count, absolute 0.0 x10E3/uL [facility] 0.0-0.2 " Eosinophil Absolute Count 0.3 X10E3/UL [facility] 0.0-0.4 " monocyte count, blood, automated 0.6 X10E3/UL [facility] 0.1-0.9 " lymphocyte count, blood, automated 2.4 X10E3/UL [facility] 0.7-3.1 " Absolute Neutrophils 9.7 X10E3/UL [facility] 1.4-7.0 High " basophils as percent of blood leukocytes 0 % [employer] Not Estab. " eosinophils as percent of blood leukocytes 2 % [employer] Not Estab. " monocytes as percent of blood leukocytes 4 % [employer] Not Estab. " lymphocytes as percent of blood leukocytes 18 % [employer] Not Estab. " neutrophils as percent of blood leukocytes 75 % [employer] Not Estab. " platelet count 564 X10E3/UL [facility] 150-450 High " red blood cell distribution width 13.4 % [facility] 12.3-15.4 " mean corpuscular hemoglobin concentration, RBC 32.9 G/DL [facility] 31.5-35.7 " mean corpuscular hemoglobin, RBC 29.8 pg [facility] 26.6-33.0 " mean corpuscular volume, RBC 91 fL [facility] 79-97 " hematocrit, blood 37.1 % [facility] 34.0-46.6 " hemoglobin, blood 12.2 g/dL [facility] 11.1-15.9 " erythrocyte (RBC) count 4.10 X10E6/UL [facility] 3.77-5.28 " leukocyte count, blood 13.1 X10E3/UL [facility] 3.4-10.8 High blood glucose, random 256 mg/dL Edward Delgado " hemoglobin A1C, blood, as % of total hemoglobin 8.3 % Edward Roa Nnabuife hematocrit, blood 37.6 % Kayla Ruel " hemoglobin, blood 11.0 g/dL Kayla Ruel " leukocyte count, blood 9.9 10*3/mm3 Kayla Ruel " Estimated Glomerular Filtration Rate (calc) 90 mL/min/((173/100).m2) Kayla Ruel " creatinine, serum 0.80 mg/dL Kayla Ruel " urea nitrogen, blood 12 mg/dL Kayla Ruel " potassium, serum 3.6 mmol/L Kayla Ruel " sodium, serum 137 mmol/L Kayla Lipscomb blood glucose, random 289 mg/dL Violette Welch blood glucose, random 180 mg/dL Priya Mars blood glucose, random 179 mg/dL Alayna Chapman hemoglobin A1C, blood, as % of total hemoglobin 10.1 % [facility] 4.8-5.6 High " LDL cholesterol, serum 108 mg/dL [facility] 0-99 High " very low density lipoproteins 32 mg/dL [facility] 5-40 " HDL cholesterol, serum 68 mg/dL [facility] >39 " triglyceride, serum, fasting 161 mg/dL [facility] 0-149 High " cholesterol, serum 208 mg/dL [facility] 100-199 High " alanine aminotransferase (SGPT), serum 24 1/L [facility] 0-32 " aspartate aminotransferase (SGOT), serum 17 1/L [facility] 0-40 " alkaline phosphatase, serum 133 1/L [facility] 39-117 High " bilirubin, serum, total <0.2 mg/dL [facility] 0.0-1.2 " albumin/globulin ratio, serum 1.6 [facility] 1.2-2.2 " globulin, serum 2.8 [facility] 1.5-4.5 " albumin, serum 4.4 g/dL [facility] 3.5-5.5 " protein, total, serum 7.2 g/dL [facility] 6.0-8.5 " calcium, serum 9.8 mg/dL [facility] 8.7-10.2 " carbon dioxide, venous blood 32 mmol/L [facility] 20-29 High " chloride, serum 91 mmol/L [facility] 96-106 Low " potassium, serum 3.3 mmol/L [facility] 3.5-5.2 Low " sodium, serum 140 mmol/L [facility] 134-144 " urea nitrogen/creatinine ratio, serum 14 [facility] 9-23 " eGFR if 98 mL/min/((173/100).m2) [facility] >59 " Estimated Glomerular Filtration Rate (calc) 85 mL/min/((173/100).m2) [facility] >59 " creatinine, serum 0.83 mg/dL [facility] 0.57-1.00 " urea nitrogen, blood 12 mg/dL [facility] 6-24 " blood glucose, random 202 mg/dL [facility] 65-99 High blood glucose, fasting 219 mg/dL Marielena Rodney " hemoglobin A1C, blood, as % of total hemoglobin 9.4 % Marielena Rodney alanine aminotransferase (SGPT), serum 40 1/L [facility] 0-32 High " aspartate aminotransferase (SGOT), serum 39 1/L [facility] 0-40 " alkaline phosphatase, serum 104 1/L [facility] 39-117 " bilirubin, serum, total 0.2 mg/dL [facility] 0.0-1.2 " albumin/globulin ratio, serum 1.6 [facility] 1.1-2.5 " globulin, serum 2.8 [facility] 1.5-4.5 " albumin, serum 4.5 g/dL [facility] 3.5-5.5 " protein, total, serum 7.3 g/dL [facility] 6.0-8.5 " calcium, serum 10.2 mg/dL [facility] 8.7-10.2 " carbon dioxide, venous blood 39 mmol/L [facility] 18-29 High " chloride, serum 88 mmol/L [facility] 97-108 Low " potassium, serum 3.7 mmol/L [facility] 3.5-5.2 " sodium, serum 141 mmol/L [facility] 134-144 " urea nitrogen/creatinine ratio, serum 9 [facility] 9-23 " eGFR if 72 mL/min/((173/100).m2) [facility] >59 " Estimated Glomerular Filtration Rate (calc) 62 mL/min/((173/100).m2) [facility] >59 " creatinine, serum 1.11 mg/dL [facility] 0.57-1.00 High " urea nitrogen, blood 10 mg/dL [facility] 6-24 " blood glucose, random 118 mg/dL [facility] 65-99 High calcium, serum 9.9 mg/dL [facility] 8.7-10.2 " carbon dioxide, venous blood 30 mmol/L [facility] 19-28 High " chloride, serum 95 mmol/L [facility] 97-108 Low " potassium, serum 4.4 mmol/L [facility] 3.5-5.2 " sodium, serum 136 mmol/L [facility] 134-144 " urea nitrogen/creatinine ratio, serum 10 [facility] 9-23 " Estimated Glomerular Filtration Rate (calc) 87 mL/min/((173/100).m2) [facility] >59 " creatinine, serum 0.84 mg/dL [facility] 0.57-1.00 " urea nitrogen, blood 8 mg/dL [facility] 6-24 " blood glucose, random 81 mg/dL [facility] 65-99 HISTORY OF IMMUNIZATIONS No Information Available HISTORY OF MEDICATION USE Medication Instructions Dates Provider Comments POTASSIUM CHLORIDE ANDREAS ER 20 MEQ ORAL TABLET EXTENDED RELEASE 1 by mouth every day Edward Delgado TRAMADOL HCL 50 MG ORAL TABLET 1-2 tablets by mouth 4 times a day as needed for pain Edward Delgado NAPROXEN 500 MG ORAL TABLET 1 by mouth twice a day as needed for pain and inflammation Edward Delgado DEBROX 6.5 % OTIC SOLUTION apply 10 drops in each ear Twice a Day Edward Delgado NEBULIZER Please use as indicated Edward Delgado METFORMIN HCL 1000 MG TABS TAKE 1 TABLET BY MOUTH TWICE DAILY [facility] MUCINEX 600 MG ORAL TABLET EXTENDED RELEASE 12 HOUR take 1 tablet twice a day Chukwuemeka Zoroastrianism Nn[facility] TESSALON PERLES 100 MG ORAL CAPSULE 1 by mouth 3 times a day as needed for cough Edward Boyceuinasir CONTRAVE 8-90 MG ORAL TABLET EXTENDED RELEASE 12 HOUR 1 tab in the am x 1 week, then 1 tab Twice a Day x 1 week , then 2 tab in the am and 1 tab in the pm x1 week, then 2 tab twice a day Edward Whiteabuife METFORMIN 500MG TAB TAKE 1 TABLET BY MOUTH ONCE DAILY Bhavya Pedersen [facility] FREESTYLE LANCETS Use as directed to test blood sugar once daily [facility] Pedersen [facility] ICD CODE E11.9 FREESTYLE LITE TEST IN VITRO STRIP Use as directed to test blood sugar once daily [facility] ICD CODE E11.9 FREESTYLE FREEDOM LITE W/DEVICE KIT Use as directed to test blood sugar once daily [facility] ICD CODE E11.9 BD ULTRA-FINE MICRO PEN NEEDLE 32G X 6 MM use as instructed with kwik pen Edward Whiteabuinasir PANTOPRAZOLE SOD 40MG TAB TAKE 1 TABLET BY MOUTH ONCE DAILY [facility] HUMALOG MIX 75/25 KWIKPEN (75-25) 100 UNIT/ML SC SUPN Take 50 units 15 mins before breakfast, and 26 units 15 mins before dinner daily Kayla Lipscomb AZITHROMYCIN 250 MG ORAL TABLET 2 tablets by mouth on day one then one tablet by mouth each day for a total of 5 days Edward Boyceuife CHEST CONGESTION RELIEF 400 MG ORAL TABLET take every 4 hours as needed for cough and congestion. - Edward Whiteabuife DOXYCYCLINE HYCLATE 100 MG ORAL CAPSULE 1 by mouth twice a day - Edward Whiteabuife RELION INSULIN SYRINGE 31G X 15/64" 1 ML Use Three Times a Day to administer insulin [facility] Updated directions IPRATROPIUM/ ALBUTER EMI USE 1 AMPULE IN NEBULIZER EVERY 4 HOURS NEEDED FOR WHEEZING [facility] AZITHROMYCIN 250 MG ORAL TABLET 2 tablets by mouth on day one then one tablet by mouth each day for a total of 5 days - Titi Calderón AUGMENTIN 875-125 MG ORAL TABLET 1 by mouth twice a day - Titi Calderón LORATADINE 10 MG ORAL TABLET 1 By Mouth once a day - Titi Calderón FLUCONAZOLE 150 MG ORAL TABLET 1 tab by mouth, may repeat in 3 days - Titi Calderón TRAMADOL HCL 50 MG ORAL TABLET 1 tablet by mouth 4 times a day as needed for pain - Titi Calderón IBUPROFEN 800 MG ORAL TABLET 1 by mouth every 8 hours as needed - Titi Calderón AZITHROMYCIN 250 MG ORAL TABLET 2 tablets by mouth on day one then one tablet by mouth each day for a total of 5 days - Comfort Trevino SPIRIVA HANDIHALER 18 MCG INHALATION CAPSULE Inhale one dose daily for COPD Comfort Trevino MUCINEX DM 30-600 MG ORAL TABLET EXTENDED RELEASE 12 HOUR take 1 By Mouth q6hr As Needed cough - Comfort Trevino AMOXICILLIN 500 MG ORAL CAPSULE take 1 By Mouth Twice a Day 7 days - Comfort Trevino HYDROCODONE-ACETAMINOPHEN 5-325 MG ORAL TABLET take 1 By Mouth q6hr As Needed cough - Annemarie Gaffney AZITHROMYCIN 250 MG ORAL TABLET take 2 take By Mouth x1 , then take 1 By Mouth daily for 4 days - Annemarie Gaffney SYMBICORT 80-4.5 MCG/ACT INHALATION AEROSOL take 2 puffs Twice a Day for copd Annemarie Gaffney AURALGAN 5.5-1.4 % OTIC SOLUTION 2-4 drops in ear Four Times a Day As Needed for pain - Comfort Trevino ALBUTEROL SULFATE (2.5 MG/3ML) 0.083% INHALATION NEBULIZATION SOLUTION take 1 nebs q4hr As Needed - Titi Kaitlynn XOPENEX HFA 45 MCG/ACT INHALATION AEROSOL 1 puff Every Four hr As Needed Annemarie Gaffney TORSEMIDE 20 MG ORAL TABLET take 2 tablets daily Edward Delgado CYCLOBENZAPRINE HCL 10 MG ORAL TABLET take 1 By Mouth Three Times a Day As Needed - Titi Kaitlynn ADVAIR DISKUS 250-50 MCG/DOSE INHALATION AEROSOL POWDER BREATH ACTIVATED 1 puff BID - Annemarie Gaffney LISINOPRIL-HYDROCHLOROTHIAZIDE 10-12.5 MG ORAL TABLET take 1 By Mouth daily - Edward Delgado PREDNISONE 20MG TAB TAKE 1 TABLET BY MOUTH ONCE DAILY Edward Delgado PROVENTIL HFA 108 (90 Base) MCG/ACT INHALATION AEROSOL SOLUTION 2 puffs every 4 hours as needed - Comfort Trevino ADVAIR DISKUS 250-50 MCG/DOSE INHALATION AEROSOL POWDER BREATH ACTIVATED take 1 puff Twice a Day - Annemarie Gaffney SOCIAL HISTORY Date Observation Value Provider Exercise Program Referral Miguel A Harman " Weight Management Counseling Provided Miguel A Harman " Nutrition intervention Miguel A Harman drug use, illicit Never Nupur Chong " alcohol use Currently Nupur Chong " social history E&M Single. Not homeless. Born in [facility]. City: [facility]. State: [place]. Not employed. Retired. Highest education level: high school graduate. Gender of partner(s): male. Nupur Chong " social history reviewed E&M reviewed today Nupur Chong " assessment of health literacy ([employer] 2014 Standards, 3C10) Adequate Nupur Chong " passive cigarette smoke exposure Yes Nupur Chong " smoking status former smoker Nupur Chong time of call 04/02/2019 8:30 AM Daphney Espitia drug use, illicit Never Stephanie Isabel " alcohol use Currently Stephanie Isabel " social history E&M Single. Not homeless. Born in [facility]. City: [facility]. State: [place]. Not employed. Retired. Highest education level: high school graduate. Gender of partner(s): male. Stephanie Isabel " social history reviewed E&M reviewed today Stephanie Isabel " assessment of health literacy ([facility] 2014 Standards, 3C10) Adequate Stephanie Isabel " passive cigarette smoke exposure Yes Stephanie Isabel " smoking status former smoker Stephanie Isabel " Exercise Program Referral T Stephanie Isabel " Weight Management Counseling Provided T Stephanie Isabel " Nutrition intervention T Stephanie Isabel sunscreen use No Chukwuemeka Zoroastrianism Nnabuife " Exercise Program Referral T Chukwuemeka Zoroastrianism Nnabuife " Weight Management Counseling Provided T Chukwuemeka Zoroastrianism Nnabuife " Nutrition intervention T Chukwuemeka Zoroastrianism Nnabuife " drug use, illicit Never Npuur Chong " alcohol use Currently Nupur Chong " social history E&M Single. Not homeless. Born in [facility]. City: [facility]. State: [place]. Not employed. Retired. Highest education level: high school graduate. Gender of partner(s): male. Nupur Chong " social history reviewed E&M reviewed today Nupur Chong " assessment of health literacy ([facility] 2014 Standards, 3C10) Adequate Nupur Chong " passive cigarette smoke exposure No Nupur Chong " smoking status former smoker Nupur Chong time of call 01/09/2019 11:02 AM Eusebia Gagnon time of call 01/08/2019 8:58 AM Alayna Gu Exercise Program Referral T Satinder Harman " Weight Management Counseling Provided T Satinder Harman " Nutrition intervention T Satinder Harman " drug use, illicit Never Nupur Chong " alcohol use Currently Nupur Chong " social history E&M Single. Not homeless. Born in [facility]. City: [facility]. State: [place]. Not employed. Retired. Highest education level: high school graduate. Gender of partner(s): male. Nupur Chong " social history reviewed E&M reviewed today Nupur Chong " assessment of health literacy ([facility] 2014 Standards, 3C10) Adequate Nupur Chong " passive cigarette smoke exposure No Nupur Chong " smoking status former smoker Nupur Chong time of call 11/21/2018 9:45 AM Joaquim Engel drug use, illicit Never Stephanie Chalo " alcohol use Currently Stephanie Isabel " social history E&M Single. Not homeless. Born in [facility]. City: [facility]. State: [place]. Not employed. Retired. Highest education level: high school graduate. Gender of partner(s): male. Stephanie Isabel " social history reviewed E&M reviewed today Stephanie Isabel " assessment of health literacy ([facility] 2014 Standards, 3C10) Adequate Stephanie Isabel " is there any chance that you could be ? No Stephanie Isabel " passive cigarette smoke exposure No Stephanie Isabel " smoking status former smoker Stephanie Isabel " Exercise Program Referral T Stephanie Isabel " Weight Management Counseling Provided T Stephanie Isabel " Nutrition intervention T Stephanie Isabel time of call 08/07/2018 1:51 PM Clementine Velasquez drug use, illicit Never Hafsa Will " alcohol use Currently Hafsa Will " social history E&M Single. Not homeless. Born in [facility]. City: [facility]. State: [place]. Not employed. Retired. Highest education level: high school graduate. Gender of partner(s): male. Hafsa Will " social history reviewed E&M reviewed today Hafsa Will " assessment of health literacy ([facility] 2014 Standards, 3C10) Adequate Hafsa Will " passive cigarette smoke exposure No Hafsa Will " smoking status former smoker Hafsa Will " Exercise Program Referral T Hafsa Will " Weight Management Counseling Provided T Hafsa Will " Nutrition intervention T Hafsa Will drug use, illicit Never Violette Pool " alcohol use Currently Violette Pool " social history E&M Single. Not homeless. Born in [facility]. City: [facility]. State: [place]. Not employed. Retired. Highest education level: high school graduate. Gender of partner(s): male. Violette Pool " social history reviewed E&M reviewed today Violette Pool " assessment of health literacy ([facility] 2014 Standards, 3C10) Adequate Violette Pool " passive cigarette smoke exposure No Violette Pool " smoking status former smoker Violette Pool alcohol use Currently Hafsa Will " drug use, illicit Never Hafsa Will " social history E&M Single. Not homeless. Born in [facility]. City: [facility]. State: [place]. Not employed. Retired. Highest education level: high school graduate. Gender of partner(s): male. Hafsa Will " social history reviewed E&M reviewed today Hafsa Will " assessment of health literacy ([facility] 2014 Standards, 3C10) Adequate Hafsa Will " passive cigarette smoke exposure No Hafsa Will " smoking status former smoker Hafsa Will " Exercise Program Referral T Hafsa Will " Weight Management Counseling Provided T Hafsa Will " Nutrition intervention T Hafsa Will drug use, illicit Never Priya Jerad " alcohol use Currently Priya Jerad " social history E&M Single. Not homeless. Born in [facility]. City: [facility]. State: [place]. Not employed. Retired. Highest education level: high school graduate. Gender of partner(s): male. Priya Mars " social history reviewed E&M reviewed today Priya Jack " assessment of health literacy ([facility] 2014 Standards, 3C10) Adequate Priya Jerad " is there any chance that you could be ? No Priya Jerad " passive cigarette smoke exposure Yes Priya Jerad " smoking status former smoker Priyaerin Mars " Exercise Program Referral T Priya Jerad " Weight Management Counseling Provided T Priya Jerad " Nutrition intervention T Priya Mars time of call 05/03/2018 12:59 PM Raysa Potts Exercise Program Referral T Edward Whiteabuife " Weight Management Counseling Provided T Edward Roa Nnabuife " Nutrition intervention T Edward Roa Nnabuife " social history E&M Single. Not homeless. Born in [facility]. City: [facility]. State: [place]. Not employed. Retired. Highest education level: high school graduate. Gender of partner(s): male. Alayna Chapman " social history reviewed E&M reviewed today Alayna Chapman " assessment of health literacy ([facility] 2014 Standards, 3C10) Adequate Alayna Chapman " passive cigarette smoke exposure Yes Alayna Chapman " smoking status former smoker Alayna Chapman time of call 04/24/2018 11:41 AM Gayle Cook Serrano drug use, illicit Never Stephanie Isabel " alcohol use Currently Stephanie Isabel " social history E&M Single. Not homeless. Born in [facility]. City: [facility]. State: [place]. Not employed. Retired. Highest education level: high school graduate. Gender of partner(s): male. Stephanie Isabel " social history reviewed E&M reviewed today Stephanie Isabel " assessment of health literacy ([facility] 2014 Standards, 3C10) Adequate Stephanie Isabel " passive cigarette smoke exposure Yes Stephanie Isabel " smoking status former smoker Stephanie Isabel " Exercise Program Referral T Stephanie Isabel " Weight Management Counseling Provided T Stephanie Isabel " Nutrition intervention T Stephanie Isabel time of call 04/05/2018 10:07 AM Alayna Gu drug use, illicit Never Alayna Chapman " alcohol use Currently Alayna Chapman " social history E&M Single. Not homeless. Born in [facility]. City: [facility]. State: [place]. Not employed. Retired. Highest education level: high school graduate. Gender of partner(s): male. Alayna Chapman " social history reviewed E&M reviewed today Alayna Chapman " assessment of health literacy ([facility] 2014 Standards, 3C10) Adequate Alayna Chapman " passive cigarette smoke exposure No Alayna Chapman " smoking status former smoker Alayna Chapman " Exercise Program Referral T Alayna Chapman " Weight Management Counseling Provided T Alayna Chapman " Nutrition intervention T Alayna Chapman Exercise Program Referral T Chukwuemeka Zoroastrianism Nnabuife " Weight Management Counseling Provided T Chukwuemeka Zoroastrianism Nnabuife " Nutrition intervention T Chukwuemeka Zoroastrianism Nnabuife " alcohol use Currently Alayna Chapman " social history E&M Single. Not homeless. Born in [facility]. City: [facility]. State: [place]. Not employed. Retired. Highest education level: high school graduate. Gender of partner(s): male. Alayna Chapman " social history reviewed E&M reviewed today Alayna Chapman " assessment of health literacy ([facility] 2014 Standards, 3C10) Adequate Alayna Chapman " passive cigarette smoke exposure No Alayna Chapman " smoking status former smoker Alayna Chapman " assessment of health literacy ([facility] 2014 Standards, 3C10) Adequate Alayna Chapman " drug use, illicit Never Alayna Chapman " alcohol use Currently Alayna Chapman " social history E&M Single. Not homeless. Born in [facility]. City: [facility]. State: [place]. Not employed. Retired. Highest education level: high school graduate. Gender of partner(s): male. Alayna Chapman " social history reviewed E&M reviewed today Alayna Chapman " passive cigarette smoke exposure No Alayna Chapman " smoking status former smoker Alayna Chapman time of call 01/12/2018 10:52 AM Terry Puckett Suicide Addendum Question 12, plans for next 24-48 hours Go home, sleep, take medicaiton as prescribed, use thought challenging and distraction to combat feelings of being better off . Go to ER if thoughts worsen into intent. Toma Woods " Suicide Addendum Question 11, unusual risks No Toma Woods " Suicide Addendum Question 10, use of alcohol or non-prescription drugs No Toma Wodos " Suicide Addendum Question 9, attempted suicide before Yes Toma Woods " Suicide Addendum Question 8, people who care Yes Toma Woods " Suicide Addendum Question 7, imagine you would be rescued No Toma Woods " Suicide Addendum Question 6, intend to act No Toma Woods " Suicide Addendum Question 5, means and availability No Toma Woods " Suicide Addendum Question 4, plan for suicide Yes Toma Woods " Suicide Addendum Question 3, try to resolve or see other solution Yes Toma Woods " Suicide Addendum Question 2, feeling hopeless No Toma Woods Suicide Addendum Question 11, unusual risks No Madhumita Sierra " Suicide Addendum Question 9, attempted suicide before No Madhumita Sierra " Suicide Addendum Question 5, means and availability Yes Madhumita Sierra " Suicide Addendum Question 6, intend to act No Madhumita Sierra " Suicide Addendum Question 4, plan for suicide No Madhumita Sierra " Suicide Addendum Question 2, feeling hopeless Yes Madhumita Sierra " Suicide Addendum Question 1, thoughts of harming yourself Yes Madhumita Sierra Suicide Addendum Question 1, thoughts of harming yourself Yes Toma Woods " family support Adult Children (23, 21, and 19). Toma Woods drug use, illicit Never Vivian Sin " alcohol use Currently Vivianmario Sin " social history E&M Single. Not homeless. Born in [facility]. City: [facility]. State: [place]. Not employed. Retired. Highest education level: high school graduate. Gender of partner(s): male. Vivian Sin " social history reviewed E&M reviewed today Vivian Sin " passive cigarette smoke exposure No Vivian Merrick " smoking status former smoker Vivianmario Sin " Exercise Program Referral T Vivian Sin " Weight Management Counseling Provided T Vivian Sin " Nutrition intervention Miguel A Sin time of call 12/05/2017 2:22 PM Sera Bob drug use, illicit Never Stephanie Isabel " alcohol use Currently Stephanie Isabel " social history E&M Single. Not homeless. Born in [facility]. City: [facility]. State: [place]. Not employed. Retired. Highest education level: high school graduate. Gender of partner(s): male. Stephanie Isabel " social history reviewed E&M reviewed today Stephanie Isabel " passive cigarette smoke exposure Yes Stephanie Isabel " smoking status former smoker Stephanie Isabel " Exercise Program Referral T Stephanie Isabel " Weight Management Counseling Provided T Stephanie Isabel " Nutrition intervention Miguel A Isabel time of call 10/25/2017 2:55 PM Ana M Palacio Exercise Program Referral T Edward Delgado " Weight Management Counseling Provided T Edward Delgado " Nutrition intervention T Edward Boyceuinasir " social history E&M Single. Not homeless. Born in [facility]. City: [facility]. State: [place]. Not employed. Retired. Highest education level: high school graduate. Gender of partner(s): male. Edward Zoroastrianism Danny " social history reviewed E&M reviewed today Edward Boyceuife " drug use, illicit Never Nupur Chong " alcohol use Currently Nupur Chong " passive cigarette smoke exposure Yes Nupur Chong " smoking status former smoker Nupur Chong time of call 09/02/2017 9:48 AM Donna Rousencio sunscreen use No Abisaijose j Crispin Boyceuinasir " social history E&M Single. Not homeless. Born in [facility]. City: [facility]. State: [place]. Not employed. Retired. Highest education level: high school graduate. Gender of partner(s): male. Abisaijose j Crispin Delgado " social history reviewed E&M reviewed today Edward Delgado " passive cigarette smoke exposure Yes Taina Riccardo " smoking status former smoker Taina Gu time of call 08/11/2017 8:56 AM Donna Sabiha Exercise Program Referral T Titi Kaitlynn " Weight Management Counseling Provided T Titi Kaitlynn " Nutrition intervention T Titi Kaitlynn " passive cigarette smoke exposure No Taina Riccardo " smoking status former smoker Taina Gu time of call 07/21/2017 4:25 PM Alayna Gu social history E&M Single. Not homeless. Born in [facility]. City: [facility]. State: [place]. Not employed. Retired. Highest education level: high school graduate. Gender of partner(s): male. Abisaijose j Crispin Delgado " social history reviewed E&M reviewed today Edward Boyceuinasir " Exercise Program Referral T Edward Whiteabuinasir " Weight Management Counseling Provided T Edward Boyceuinasir " Nutrition intervention T Edward Boyceuinasir time of call 07/08/2017 10:03 AM Ana M Palacio " passive cigarette smoke exposure No Taina Gu " smoking status former smoker Taina Gu Exercise Program Referral Miguel A Umana " Weight Management Counseling Provided Miguel A Umana " Nutrition intervention Miguel A Umana " drug use, illicit Never Francesca Gamino " alcohol use, frequency holidays/special occasions only Francesca Gamino " alcohol use Currently Francesca Gamino " smoking status former smoker Francesca Gamino " passive cigarette smoke exposure No Francesca Gamino drug use, illicit Never Francesca Gamino " alcohol use Never Francesca Gamino " passive cigarette smoke exposure No Francesca Gamino " smoking status former smoker Francesca Hammondsierrez social history E&M Single. Not homeless. Born in [facility]. City: [facility]. State: [place]. Not employed. Retired. Highest education level: high school graduate. Gender of partner(s): male. Deniz Brown " social history reviewed E&M reviewed today Deniz Brown " passive cigarette smoke exposure Yes Mona Lira " smoking status current every day smoker Mona Lira " smoking status current every day smoker Rosalinda Ward " passive cigarette smoke exposure Yes Rosalinda Ward smoking status current every day smoker Rosalinda Ward " passive cigarette smoke exposure Yes Rosalinda Ward passive cigarette smoke exposure Yes Loly Winslow " smoking status current every day smoker Loly Winslow " passive cigarette smoke exposure Yes Loly Winslow " smoking status current every day smoker Loly Winslow smoking status Current every day smoker [employer] smoking status Current every day smoker [employer] smoking status Current every day smoker [employer] smoking status Current every day smoker [employer] smoking status Current every day smoker [employer] smoking status Current every day smoker [employer] smoking status current [employer] drug use, illicit Never Colleen Pace " alcohol use Never Colleen Pace " passive cigarette smoke exposure Yes Colleen Pace " smoking status current every day smoker Colleen Pace time of call 04/13/2013 4:36 PM Krystle Diamond social history reviewed E&M reviewed today Honey Gutierrez " social history E&M Single. Not homeless. Born in [facility]. City: [facility]. State: [place]. Not employed. Retired. Highest education level: high school graduate. Gender of partner(s): male. Honey Gutierrez " drug use, illicit Never Honeytejas Gutierrez " alcohol use Never Honeytejas Gutierrez " Occupation #1 Retired Honey Gutierrez " patient considered to be homeless No Honeytejas Gutierrez " passive cigarette smoke exposure Yes Honey Gutierrez " cigarettes, number smoked per day 1 pack Honeytejas Gutierrez " smoking status current every day smoker Honey Gutierrez FUNCTIONAL STATUS Date Observation Value Provider total score, Activities of Daily Living (ADL) Independent [facility] Activities of Daily Living (ADLs, IADLs, etc.) [facility] in [facility]L [facility] MENTAL STATUS Date Observation Value Provider assessment of judgment and insight E&M intact [facility] Whiteabui " assessment of mood and affect E&M no depression, anxiety, or agitation [facility] " mental status examination: orientation E&M oriented to time, place, and person [facility] " Generalized Anxiety Disorder Questionnaire - Question 2 0 Nupur Chong " Generalized Anxiety Disorder Questionnaire - Question 1 0 Nupur Chong assessment of judgment and insight E&M intact [facility] " mental status examination: orientation E&M oriented to time, place, and person [facility] " assessment of mood and affect E&M no depression, anxiety, or agitation [facility] Nnabuin[facility]ir " Generalized Anxiety Disorder Questionnaire - Question 2 0 Stephanie Isabel " Generalized Anxiety Disorder Questionnaire - Question 1 0 Stephanie Isabel assessment of judgment and insight E&M intact [facility] Nnabuife " mental status examination: orientation E&M oriented to time, place, and person [facility]rian[facility] " assessment of mood and affect E&M anxious, depressed mood [facility]ose j Zoroastrianism [facility] " Generalized Anxiety Disorder Questionnaire - Question 2 0 Nupur Chong " Generalized Anxiety Disorder Questionnaire - Question 1 0 Nupur Chong assessment of judgment and insight E&M intact Satinderchristopher Harman " mental status examination: orientation E&M oriented to time, place, and person Satinder Harman " assessment of mood and affect E&M anxious, depressed mood Satinder Harman " Generalized Anxiety Disorder Questionnaire - Question 2 0 Nupur Chong " Generalized Anxiety Disorder Questionnaire - Question 1 0 Nupur Chong assessment of judgment and insight E&M intact [facility]oroastrianism [facility] " mental status examination: orientation E&M oriented to time, place, and person [facility] Zoroastrianism [facility] " assessment of mood and affect E&M anxious, depressed mood [facility] j Zoroastrianism [facility] " Generalized Anxiety Disorder Questionnaire - Question 2 0 Stephanie Isabel " Generalized Anxiety Disorder Questionnaire - Question 1 0 Stephanie Isabel assessment of judgment and insight E&M intact [facility]rian[facility] " mental status examination: orientation E&M oriented to time, place, and person [facility] Zoroastrianism [facility] " assessment of mood and affect E&M anxious, depressed mood [facility] Zoroastrianism Nnabui mental status examination: orientation E&M alert and oriented Tiny Vazquez Mckeon " assessment of mood and affect E&M normal affect Tiny Vazquez Mckeon Generalized Anxiety Disorder Questionnaire - Question 2 0 Hafsa iWll " Generalized Anxiety Disorder Questionnaire - Question 1 0 Hafsa Will Generalized Anxiety Disorder Questionnaire - Question 2 0 Violette Welch " Generalized Anxiety Disorder Questionnaire - Question 1 0 Violette Welch assessment of judgment and insight E&M intact Edward Zoroastrianism [facility] " mental status examination: orientation E&M oriented to time, place, and person [facility] " assessment of mood and affect E&M anxious, depressed mood Edward Whiteabui assessment of judgment and insight E&M intact [facility] " mental status examination: orientation E&M oriented to time, place, and person [facility] Zoroastrianism abui " assessment of mood and affect E&M anxious, depressed mood Chuodilia [facility]oroastrianism [facility] " Generalized Anxiety Disorder Questionnaire - Question 2 0 Priya Mars " Generalized Anxiety Disorder Questionnaire - Question 1 0 Priya Mars assessment of judgment and insight E&M intact Edward Whiteabui " mental status examination: orientation E&M oriented to time, place, and person [facility] Zoroastrianism abui " assessment of mood and affect E&M anxious, depressed mood [facility] " Generalized Anxiety Disorder Questionnaire - Question 2 0 Alayna Chapman " Generalized Anxiety Disorder Questionnaire - Question 1 0 Alayna Chapman assessment of judgment and insight E&M intact [facility] " mental status examination: orientation E&M oriented to time, place, and person [facility] " assessment of mood and affect E&M anxious, depressed mood [facility] " Generalized Anxiety Disorder Questionnaire - Question 2 0 Stephanie Isabel " Generalized Anxiety Disorder Questionnaire - Question 1 0 Stephanie Isabel assessment of judgment and insight E&M intact Edward Roa [facility] " mental status examination: orientation E&M oriented to time, place, and person [facility] Zoroastrianism abui " assessment of mood and affect E&M anxious, depressed mood [facility] Zoroastrianism abui " Generalized Anxiety Disorder Questionnaire - Question 2 0 Alayna Chapman " Generalized Anxiety Disorder Questionnaire - Question 1 0 Alayna Chapman assessment of judgment and insight E&M intact Edward Zoroastrianism abui " mental status examination: orientation E&M oriented to time, place, and person [facility] " assessment of mood and affect E&M anxious, depressed mood [facility] " Generalized Anxiety Disorder Questionnaire - Question 2 0 Alayna Chapman " Generalized Anxiety Disorder Questionnaire - Question 1 0 Alaynataye Chapman assessment of judgment and insight E&M intact [facility] " mental status examination: orientation E&M oriented to time, place, and person [facility] " assessment of mood and affect E&M anxious, depressed mood [facility] " Generalized Anxiety Disorder Questionnaire - Question 2 0 Alaynahansel Chapman " Generalized Anxiety Disorder Questionnaire - Question 1 0 Alayna Chapman affect (mental status exam) anxious, blunted Toma Woods " mental status assessment, judgment good Toma Woods " insight (mental status exam) good Toma Woods " Mental Status Exam: intelligence adequate fund of information, intact memory processes, oriented to person, oriented to place, oriented to time, oriented to situation, oriented to reality Toma Woods " thought content (mental status exam) (E&M) lucid Toma Woods " mental status assessment, process able to abstract, goal-directed, logical Toma Woods " mental status assessment, sensorium alert, attentive, clear Toma Woods " mood (mental status exam) depressed Toma Woods " mental status assessment, speech activity normal flow, normal pace, normal pressure, normal rate, normal tone, normal volume, spontaneous Toma Woods " mental status assessment, motor activity normal gait, normal posture Toma Chuck " behavior (mental status exam) appropriate, candid, cooperative, good eye contact, polite, responsive, tearful Toma Woods " mental appearance (mental status exam) adequate hygiene, appropriate dress, looks like stated age, neat Toma Woods " delusion No Toma Woods " hallucinations none Tomaronald Woods assessment of mood and affect E&M anxious, depressed mood [facility] " assessment of judgment and insight [facility] " mental status examination: orientation E&M oriented to time, place, and person [facility] " If any problems checked, how difficult have these problems made it for you to do your work, take care of things at home, or get along with other people (GAD7, question 8) 2 Stephanie Byers " Generalized Anxiety Disorder Questionnaire - Question 7 3 Stephanie Leonardvez " Generalized Anxiety Disorder Questionnaire - Question 6 3 Stephanie Byers " Generalized Anxiety Disorder Questionnaire - Question 5 3 Stephanie Byers " Generalized Anxiety Disorder Questionnaire - Question 4 3 Stephanie Byers " Generalized Anxiety Disorder Questionnaire - Question 3 3 Stephanie Byers " Generalized Anxiety Disorder Questionnaire - Question 2 3 Vivian Sin " Generalized Anxiety Disorder Questionnaire - Question 1 3 Vivian Sin assessment of judgment and insight E&M intact [facility] " mental status examination: orientation E&M oriented to time, place, and person [facility] " assessment of mood and affect E&M no depression, anxiety, or agitation [facility] " Generalized Anxiety Disorder Questionnaire - Question 2 0 Stephanie Isabel " Generalized Anxiety Disorder Questionnaire - Question 1 0 Stephanie Isabel Generalized Anxiety Disorder Questionnaire - Question 2 0 Nupur Chong " Generalized Anxiety Disorder Questionnaire - Question 1 0 Nupur Chong mental status examination: recall E&M intact for recent and remote events [facility] " assessment of judgment and insight E&M intact [facility] " mental status examination: orientation E&M oriented to time, place, and person [facility] " assessment of mood and affect E&M no depression, anxiety, or agitation [facility] " Generalized Anxiety Disorder Questionnaire - Question 2 0 Taina Gu " Generalized Anxiety Disorder Questionnaire - Question 1 0 Taina Gu assessment of judgment and insight E&M intact Titi Kaitlynn " mental status examination: orientation E&M oriented to time, place, and person Titi Kaitlynn " assessment of mood and affect E&M no depression, anxiety, or agitation Titi Kaitlynn " Generalized Anxiety Disorder Questionnaire - Question 2 0 Taina Gu " Generalized Anxiety Disorder Questionnaire - Question 1 0 Taina Gu mental status examination: recall E&M intact for recent and remote events [facility] " mental status examination: orientation E&M oriented to time, place, and person [facility] " assessment of judgment and insight E&M intact [facility]rian[facility] " assessment of mood and affect E&M no depression, anxiety, or agitation [facility]ose j Zoroastrianism [facility] " Generalized Anxiety Disorder Questionnaire - Question 2 0 Taina Gu " Generalized Anxiety Disorder Questionnaire - Question 1 0 Taina Gu Generalized Anxiety Disorder Questionnaire - Question 2 0 Francesca Parkerrez " Generalized Anxiety Disorder Questionnaire - Question 1 0 Francesca Hammondsierrez assessment of judgment and insight E&M intact [facility] " assessment of mood and affect E&M no depression, anxiety, or agitation [facility] " If any problems checked, how difficult have these problems made it for you to do your work, take care of things at home, or get along with other people (GAD7, question 8) 0 Francesca Gamino " Generalized Anxiety Disorder Questionnaire - Question 7 3 Francesca Gamino " Generalized Anxiety Disorder Questionnaire - Question 6 3 Francesca Gamino " Generalized Anxiety Disorder Questionnaire - Question 5 0 Francesca Gamino " Generalized Anxiety Disorder Questionnaire - Question 4 3 Francesca Gamino " Generalized Anxiety Disorder Questionnaire - Question 3 0 Francesca Gamino " Generalized Anxiety Disorder Questionnaire - Question 2 0 Francesca Gamino " Generalized Anxiety Disorder Questionnaire - Question 1 3 Francesca Gamino Generalized Anxiety Disorder Questionnaire - Question 2 0 Mona Lira " Generalized Anxiety Disorder Questionnaire - Question 1 0 Mona Lira assessment of mood and affect E&M slightly anxious appearing due to respiratory distress Comfort Trevino " Generalized Anxiety Disorder Questionnaire - Question 2 0 Rosalinda Ward " Generalized Anxiety Disorder Questionnaire - Question 1 0 Rosalinda Ward Generalized Anxiety Disorder Questionnaire - Question 2 3 Rosalinda Ward " Generalized Anxiety Disorder Questionnaire - Question 1 3 Rosalinda Ward Generalized Anxiety Disorder Questionnaire - Question 2 3 Loly Short " Generalized Anxiety Disorder Questionnaire - Question 1 3 Loly Winslow Generalized Anxiety Disorder Questionnaire - Question 2 3 Loly Winslow " Generalized Anxiety Disorder Questionnaire - Question 1 3 Loly Winslow Generalized Anxiety Disorder Questionnaire - Question 2 0 Colleen Pace " Generalized Anxiety Disorder Questionnaire - Question 1 0 Colleen Pace MEDICAL EQUIPMENT No Information Available FAMILY HISTORY No Information Available INSURANCE PROVIDERS Payer name Policy type / Coverage type Covered constitution party ID Bryan Medicare HMO Medicare HMO [id number] ADVANCE DIRECTIVES No Information Available TREATMENT PLAN Date Name Comp. Metabolic Panel (14) CBC With Differential/Platelet HBsAg Screen RPR, Rfx Qn RPR/Confirm TP HIV 1/2 ANTIGEN/ANTIBODY, FOURTH GENERATION W/RFL Microalb/Creat Ratio, Randm Ur Hemoglobin A1c Lipid Panel Comp. Metabolic Panel (14) CBC With Differential/Platelet Basic Metabolic Panel (8) Comp. Metabolic Panel (14) Hemoglobin A1c Lipid Panel proBNP Comp. Metabolic Panel (14) Basic Metabolic Panel (8) - - - - - - - - - - Est Patient Exp Problem - 42182 Est Patient Detailed - 69381 New Patient Intermediate Opth - 78839 Finger Stick Glucose Ear Irrigation Est Patient Exp Problem - 22191 Est Patient Exp Problem - 76094 Retinal Screening Est Patient Well Exam (40 - 64 Yrs) - 11399 Est Patient Detailed - 37292 Est Patient Exp Problem - 46273 Est Patient Exp Problem - 49814 New Patient Comprehensive - 28881 Glucose Stick Est Patient Exp Problem - 74872 Glucose Stick Est Patient Exp Problem - 03784 Prescription Assistance (Non-HIV) Glucose Stick Est Patient Exp Problem - 21142 Endocrinology - Adult - C HEMOGLOBIN A1C - In House Est Patient Exp Problem - 96587 Est Patient Detailed - 91614 Est Patient Exp Problem - 30106 Est Patient Detailed - 94580 IB Assessment - Queen Producer Diagnostic evaluation (no medical) - 98441 Integrated Behavioral Health Assessment (IBH) Est Patient Exp Problem - 76218 Est Patient Detailed - 32680 Ofc Vst, Est Level V Est Patient Exp Problem - 75698 Est Patient Exp Problem - 90436 Ofc Vst, Est Level IV Est Patient Exp Problem - 91804 Ofc Vst, Est Level V Est Patient Exp Problem - 62424 Est Patient Detailed - 28735 Est Patient Detailed - 64697 ALBUTEROL INHAL ADMIN THRU DME 1MG Est Patient Detailed - 22604 Est Patient Exp Problem - 94088 Est Patient Exp Problem - 56112 Ear Irrigation Est Patient Exp Problem - 93083 Ofc Vst, Est Level III Est Patient Exp Problem - 72246 HISTORY OF PROCEDURES Procedure Date Procedure Name Provider Procedure Notes Status New Patient Intermediate Opt - 26149 Satinder Harman completed Finger Stick Glucose Satinder Harman completed Ear Irrigation Satinder Harman completed Glucose Stick Gill Villafuerte completed Glucose Stick Satinder Harman completed Glucose Stick Gill Villafuerte completed HEMOGLOBIN A1C - In House Comfort Trevino completed [facility] Assessment - Queen Producer Toma Woods completed Diagnostic evaluation (no medical) - 92471 Toma Woods completed ALBUTEROL INHAL ADMIN THRU DME 1MG Deniz Brown completed Ear Irrigation Thea Junior completed GOALS No Information Available HEALTH CONCERNS No Information Available
--- OUTSIDE RECORDS SUMMARY | 2019-09-25 17:36 | XMS REPORT ---
Author Author Admin, [place] Organization Unknown Address Unknown Phone Unavailable PROBLEMS Condition Status Date Provider Notes Hypokalemia, mild active Edward Magañaian [place] Chronic pain syndrome active Edward Roa [place] Cerumen impaction, bilateral active Edward Magañaian [place] Well woman exam active Edward Magañaian [place] BMI 50.0-59.9 active Edward Christianity [place] BMI 60.0-69.9, adult completed - Edward Magañaian [place] CHF exacerbation active Edward Magañaian [place] Dyspnea at rest active Edward Roa [place] Acute upper respiratory infection active Edward Magañaian [place] Screening for lipid disorder active Edward Magañaian [place] Screening for diabetes mellitus active Edward Magañaian [place] GERD active Edward Magañaian [place] Diabetes mellitus type II active Edward Roa [place] Urinary retention active Edward Magañaian [place] Ascites active Edward Roa [place] Abdominal pain, chronic active Edward Magañaian [place] Abdominal distension active Edward Roa [place] Mood Disorder, NOS active Toma Woods Suicidal ideation active Edward Boyceuinasir Depression, major active Edward [place] COPD with exacerbation active Edward [place] BMI 50.0-59.9 completed - Tiny Vazquez Mckeon Chronic bronchitis active Edward Boyceuinasir Breast abnormal findings active Edward [place] Otitis media, acute completed - Titi Kaitlynn MORBID OBESITY active Ewdin Umana Candidal vaginitis completed - Titi Kaitlynn SLEEP APNEA active Comfort Trevino CHF active Comfort Trevino CHRONIC OBSTRUCTIVE PULMONARY DISEASE, ACUTE EXACERBATION completed - Comfort Trevino LOW BACK PAIN active Thea Puppala DEPENDENT EDEMA, LEGS active Annemarie Gaffney HEARING DEFICIT active Baljinderniesha Isabel BLURRED VISION active Baljinderniesha Isabel EAR PAIN, RIGHT completed - Titi Kaitlynn MUSCLE SPASM completed - Titi Kaitlynn HYPERTENSION active Gill Tomlinsondasonia SARCOIDOSIS active Gill Villafuerte NICOTINE ADDICTION active Annemarie Gaffney COPD active Annemarie Gaffney ENCOUNTERS Date Type Provider Location Encounter Diagnosis - Ambulatory Encounter Fax Status [facility] UNK - Ambulatory Encounter Fax Status [facility] UNK - Ambulatory Encounter Fax Status [facility] UNK - Ambulatory Encounter Edward Boyceuinasir Delgado [facility] UNK - Ambulatory Encounter Satinder Leon Christianity [place] Jamarkwlinda Christianity [place] [facility] Hypokalemia, mild - Ambulatory Encounter Abisaijose j Christianity [place] Jamarkwlinda Christianity N[place] [facility] UNK - Ambulatory Encounter LSJ Lab Support Desktop LinkLogic Chukwlinda Christianity [place] Jamarkwuemejose j Christianity Nnab[place] [facility] UNK - Ambulatory [facility] - [facility] En[facility] - Ambulatory Encounter Gautamwlinda Christianity [place] Jamarkwfabiánmejose j Christianity N[place] [facility] UNK - Ambulatory Encounter Chuvidhyawlinda Christianity [place] Jamarkwuemejose j Christianity Nn[place] [facility] UNK - Ambulatory Encounter Chuvidhyawlinda Christianity [place] Jamarkwlinda Christianity [place] [facility] UNK - Ambulatory Encounter Satinder Leon Christianity [place] Chukwlinda Christianity [place] Sheryl Odonnell [facility] UNK - Ambulatory Encounter [facility]fort [facility]avino [facility] - [facility]ulatory Encounter Comfort Christianson MedAdherence [facility] UNK - Ambulatory Encounter Tiara Christianson MedAdherence [facility] UNK - Ambulatory Encounter Edward Whiteabuinasir Roa [place] LinkLog [facility] UNK - Ambulatory Encounter Osiris Gordon LinkLog [facility] UNK - Ambulatory Encounter Edward [place] Edward Magañaian [place] LinkLogic [facility] UNK - Ambulatory Encounter Comfort Christianson MedAdherence [facility] UNK - Ambulatory Encounter Edward Roa [place] Edward Christianity N[place] [facility] UNK - Ambulatory Encounter Edward Magañaian Cindyabuife Edward Christianity Nn[place] [facility] UNK - Ambulatory Encounter Edward Roa [place] Edward Christianity N[place] [facility] UNK - Ambulatory Encounter Satinder Leon Christianity [place] Edward Christianity N[place] [facility] Chronic pain syndrome - Ambulatory Encounter Edward Roa [place] Edward Christianity N[place] [facility] UNK - Ambulatory Encounter LSJ Lab Support Desktop LinkLogic Edward Magañaian [place] Edward Christianity N[place] [facility] UNK - Ambulatory Encounter Edward Christianity [place] Gautamwlinda Christianity Nnabu[place] [facility] UNK - Ambulatory Encounter Edward Christianity [place] Gautamwlinda Christianity N[place] [facility] UNK - Ambulatory Encounter Comfort Josephuekathya Christianity [place] Gautamwuekathya Christianity [place] Osorio Benítez [facility] Well woman examCerumen impaction, bilateral - Ambulatory Encounter Satinder Christianson MedAdherence [facility] UNK - Ambulatory Encounter Satinder Christianson MedAdherence [place] UNK - Ambulatory Encounter Satinder Christianson MedAdherence Gautamwuekathya Roa [place] Gautamwuekathya Roa [place] Eusebia Gagnon [facility] UNK - Ambulatory Encounter Satinder Christianson MedAdherence [facility] UNK - Ambulatory Encounter Tiara Christianson MedAdherence Alayna Gu [facility] UNK - Ambulatory Encounter Edward Christianity [place] Edward Christianity [place] [facility] - Ambulatory Encounter Edward Magañaian [place] Gautamwlinda Christianity [place] [facility] - Ambulatory Encounter Satinder Christianson MedAdherence [facility] UNK - Ambulatory Encounter Satinder Harman LinkLogic [facility] UNK - Ambulatory Encounter Fax Status [facility] - [facility]ulatory Encounter Fax Status [facility] UNK - Ambulatory Encounter Fax Status LinkLogic [facility] UNK - Ambulatory Encounter Fax Status LinkLogic [facility] UNK - Ambulatory Encounter Fax Status LinkLogic [facility] UNK - Ambulatory Encounter Fax Status LinkLogic [facility] UNK - Ambulatory Encounter [facility]der [facility] - [facility] Encounter Tiara Christianson MedAdherence Satinder Engel [facility] Contact Center UNK - Ambulatory Encounter Kimberly Whiteabuinasir Whiteabjaimie [facility] Center UNK - Ambulatory Encounter Satinder Christianson MedAdherence [facility] UNK - Ambulatory Encounter Satinder Harman LinkLogic [facility] UNK - Ambulatory Encounter Fax Status [facility]Log [facility] - Ambulatory Encounter Lo Christianson MedAdherence [facility] UNK - Ambulatory Encounter Edward [place] Edward Magañaian [place] LinkLogic [facility] UNK - Ambulatory Encounter Edward [place] Edward Magañaian [place] LinkLogic [facility] UNK - Ambulatory Encounter Abisaijose j Christianity Cindyabuinasir Baronejose j Christianity N[place] [facility] UNK - Ambulatory Encounter Abisaijose j Christianity Nnab[place]asir Roldankwuejose j Christianity Nn[place] [facility] UNK - Ambulatory Encounter Abisaijose j Christianity [place] Abisaijose j Christianity [place] [facility] UNK - Ambulatory Encounter Alinekaylin Sierra Roldankwuemejose j Christianity [place] Opaluekathya Christianity [place] [facility] BMI 60.0-69.9, adultBMI 50.0-59.9 - Ambulatory Encounter Alayna Nava [facility] UNK - Ambulatory Encounter Kayla Ruel [facility] UNK - Ambulatory Encounter Kayla Ruel [facility] UNK - Ambulatory Encounter Edward Whiteabuinasir Roldankwuemejose j Roa [place] Kaylakaylin Lipscomb [facility] UNK - Ambulatory Encounter [facility]atinder [facility] Kayla Roldankwuemeka Crispin Whiteabuinasir Roldankwuemeka Christianity [place] Jaden Reich [facility] UNK - Ambulatory Encounter Fax Status LinkLogic [facility] UNK - Ambulatory Encounter Fax Status LinkLogic [facility] UNK - Ambulatory Encounter Fax Status LinkLogic [facility] UNK - Ambulatory Encounter Fax Status LinkLogic [facility] UNK - Ambulatory Encounter Bhavya Pedersen MedAdherence Clementine Velasquez [facility] Contact Center UNK - Ambulatory Encounter Edward Whiteabuinasir Whiteabuinasir [facility] UNK - Ambulatory Encounter Edward Whiteabuinasir [place] [facility] UNK - Ambulatory Encounter Edward Whiteabuinasir Whiteabuinasir [facility] UNK - Ambulatory Encounter Comfort Whiteabuinasir [place] [facility] Dyspnea at restCHF exacerbation - Ambulatory Encounter Tiny Vazquez Mckeon Tiny Vazquez Mckeon [facility] UNK - Ambulatory Encounter Tiny Vazquez Mckeon [facility]-59.9BMI 60.0-69.9, adult - Ambulatory Encounter Kayla Lipscomb [facility] UNK - Ambulatory Encounter Satinder Christianson MedAdherence Francesca Potts [facility] Contact Center UNK - Ambulatory Encounter Violette Yuri Lipscomb [facility] UNK - Ambulatory Encounter Edward Whiteabuinasir [place] [facility] UNK - Ambulatory Encounter Edward Whiteabuinasir Leon Christianity [place] [facility] UNK - Ambulatory Encounter Chukshericelinda Christianity [place] Chukwfabiánmejose j Christianity [place] [facility] UNK - Ambulatory Encounter Chukwfabiánkathya Christianity [place] Chukwuemejose j Christianity [place] [facility] UNK - Ambulatory Encounter Chukwfabiánkathya Christianity [place] Chukwuemejose j Christianity [place] [facility] UNK - Ambulatory Encounter Gill Roldankwuemejose j Christianity [place] Chukwuemejose j Christianity [place] Violette Will [facility] Acute upper respiratory infection - Ambulatory Encounter [facility] - Ambulatory Encounter Satinderchristopher Harman [facility] - Ambulatory Encounter Bhavya Pedersen [facility] UNK - Ambulatory Encounter Comfort Trevino [facility] UNK - Ambulatory Encounter Norma Ibarra [facility] UNK - Ambulatory Encounter Fax Status [facility]ic [facility] - Ambulatory Encounter [facility] UNK - Ambulatory Encounter Fax Status [facility] UNK - Ambulatory Encounter Alayna Krausa [facility] UNK - Ambulatory Encounter Abisaijose j Christianity [place] Abisaijose j Christianity [place] [facility] UNK - Ambulatory Encounter Chukkavin Christianity [place] Chukwlinda Christianity [place] [facility] UNK - Ambulatory Encounter Chukkavin Christianity [place] Gautamwlinda Christianity [place] [facility] UNK - Ambulatory Encounter Satinder Klein Chukkavin Christianity [place] Chukwlinda Christianity [place] Priya Mars [facility] UNK - Ambulatory Encounter Parris Oleary [facility] UNK - Ambulatory Encounter Chukkavin Christianity [place] Edward Christianity [place] LinkLog [facility] UNK - Ambulatory Encounter Bhavya Leon Christianity [place] Edward Christianity [place] Raysa Potts [facility] UNK - Ambulatory Encounter Chukwlinda Christianity [place] Gautamwuekathya Christianity [place] [facility] UNK - Ambulatory Encounter Chukkavin Christianity [place] Chuvidhyawlinda Christianity [place] [facility] UNK - Ambulatory Encounter Chukkavin Christianity [place] Chuvidhyawlinda Christianity [place] [facility] UNK - Ambulatory Encounter Chukkavin Christianity [place] Gautamwlinda Christianity [place] [facility] UNK - Ambulatory Encounter Gillkaylin Roldankwuemeka Christianity [place] Chukwuemejose j Christianity Nn[place] [facility] UNK - Ambulatory Encounter Bhavya Pedersen MedAdherence [facility] UNK - Ambulatory Encounter Kayla Ruel Serrano [facility] UNK - Ambulatory Encounter Chukwuekathya Christianity [place] Chukwuemejose j Christianity Nnab[place] [facility] UNK - Ambulatory Encounter Tab Chang [facility] UNK - Ambulatory Encounter Chukwuekathya Christianity [place] Chukwuemeka Christianity Nnabu[place] [facility] UNK - Ambulatory Encounter Chukwfabiánmejose j Christianity [place] Chukwuemeka Christianity Nnabu[place] [facility] UNK - Ambulatory Encounter LSJ Lab Support Desktop LinkLogic Tab Florezwuekathya Christianity [place] Chukwuemeka Christianity Nn[place] [facility] UNK - Ambulatory Encounter Chukwlinda Christianity [place] Chukwuemeka Christianity Nnab[place] [facility] UNK - Ambulatory Encounter Chukwuemejose j Christianity [place] Chukwuemeka Christianity Nnabu[place] [facility] UNK - Ambulatory Encounter Chukwuemeka Christianity [place] Chukwuemeka Christianity Nnabu[place] [facility] UNK - Ambulatory Encounter Comfort Christianson MedAdherence Chukwfabiánmejose j Christianity [place] Chukwuemejose j Christianity [place] Marielena Reich [facility] Screening for diabetes mellitusScreening for lipid disorder - Ambulatory Encounter Chukwuemejose j Christianity [place] Chukwuemejose j Christianity N[place] [facility] GERD - Ambulatory Encounter Chukwuemejose j Christianity [place] Chukwuemejose j Christianity [place] Stephanie Isabel [facility] UNK - Ambulatory Encounter Chukwuemejose j Christianity [place] Chukwuemejose j Christianity Nnab[place] [facility] UNK - Ambulatory Encounter Tab Roldankkavin Christianity [place] Chukwuemejose j Christianity [place] Vivian Pope [facility] Contact Center UNK - Ambulatory Encounter Chukwuemejose j Christianity [place] Jamarkwuemejose j Christianity Nn[place] [facility] UNK - Ambulatory Encounter Chukwuemejose j Christianity [place] Chukwuemejose j Christianity Nnab[place] [facility] UNK - Ambulatory Encounter Chukwuemejose j Christianity [place] Chukwuemejose j Christianity Nnab[place] [facility] UNK - Ambulatory Encounter Comfort Leon Christianity [place] Chukwuemejose j Christianity N[place] [facility] Diabetes mellitus type II - Ambulatory Encounter Chukwuekathya Christianity [place] Jamarkwuekathya Christianity [place] LinkLogic [facility] UNK - Ambulatory Encounter Chuodilia Christianity [place] Edward Christianity [place] LinkLogic [facility] UNK - Ambulatory Encounter Loly Winslow [facility] UNK - Ambulatory Encounter Chukkavin Christianity [place] Edward Christianity [place] LinkLogic [facility] UNK - Ambulatory Encounter Chukkavin Christianity [place] Chuodilia Christianity N[place] [facility] UNK - Ambulatory Encounter Chukkavin Christianity [place] Edward Christianity N[place] [facility] UNK - Ambulatory Encounter Chuodilia Christianity [place] Edward Christianity N[place] [facility] UNK - Ambulatory Encounter Chuodilia Christianity [place] Edward Christianity N[place] [facility] UNK - Ambulatory Encounter Satinder Florezwlinda Christianity [place] Edward Christianity N[place] [facility] UNK - Ambulatory Encounter Tiara Christianson MedAdherence [facility] UNK - Ambulatory Encounter Bhavya Pedersen MedAdherence [facility] UNK - Ambulatory Encounter Bhavya Pedersen MedAdherence LinkLogic [facility] UNK - Ambulatory Encounter Titi Kaitlynn Titi Calderón LinkLogic [facility] UNK - Ambulatory Encounter Chuodilia Christianity [place] Edward Christianity [place] LinkLogic [facility] UNK - Ambulatory Encounter Chukrosalvajose j Christianity [place] Chukwfabiánmejose j Christianity [place] LinkLogic [facility] UNK - Ambulatory Encounter Chukrosalvajose j Christianity [place] Chukwallanjose j Christianity N[place] [facility] UNK - Ambulatory Encounter Chukrosalvajose j Christianity [place] Chukwallanjose j Christianity N[place] [facility] UNK - Ambulatory Encounter Chukrosalvajose j Christianity [place] Chukwfabiánmejose j Christianity Nn[place] [facility] UNK - Ambulatory Encounter Churameshjose j Christianity [place] Chuvidhyawallanjose j Christianity N[place] [facility] UNK - Ambulatory Encounter Comfort Leon Christianity [place] Abisaijose j Christianity N[place] [facility] Abdominal distensionAbdominal pain, chronicAscitesUrinary retention - Ambulatory Encounter Tiara Christianson MedAdherence [facility] UNK - Ambulatory Encounter Tiara Christianson MedAdherence Loly Puckett [facility] UNK - Ambulatory Encounter Tiara Christianson MedAdherence LinkLog [facility] UNK - Ambulatory Encounter Comfrot Trevino [facility] - Ambulatory Encounter Mae Rodney [facility] UNK - Ambulatory Encounter Fax Status LinkLogic [facility] UNK - Ambulatory Encounter Fax Status [facility] - [facility]ulatory Encounter Fax Status [facility]ic [facility] UNK - Ambulatory Encounter Fax Status LinkLogic [facility] UNK - Ambulatory Encounter Fax Status LinkLogic [facility] UNK - Ambulatory Encounter Fax Status LinkLogic [facility] UNK - Ambulatory Encounter Chukwuemeka Christianity [place] Chukwuemeka Christianity Nnabuife [facility] UNK - Ambulatory Encounter Chukwuemeka Christianity [place] Chukwuemeka Christianity Nnabuife [facility] UNK - Ambulatory Encounter Chukwuemeka Christianity [place] Chukwuemeka Christianity Nnabuife [facility] UNK - Ambulatory Encounter Toma Woods [facility] Mood Disorder, NOS - Ambulatory Encounter Lo Roldankwuemeka Christianity [place] Chukwuemejose j Christianity [place] Vivian Catalan Navadione Matthews [facility] Depression, majorSuicidal ideation - Ambulatory Encounter Comfort Trevino LinkLogic [facility] UNK - Ambulatory Encounter Tiara [facility] UNK - Ambulatory Encounter Bhavya Pedersen MedAdherence [facility] UNK - Ambulatory Encounter Bhavya Pedersen MedAdherence LinkLogic [facility] UNK - Ambulatory Encounter Chuodilia Christianity [place] Jamarkwuemejose j Christianity Nnab[place] [facility] UNK - Ambulatory Encounter Chuvidhyawlinda Christianity [place] Jamarkwuemejose j Christianity Nnab[place] [facility] UNK - Ambulatory Encounter Chuodilia Christianity [place] Gautamwlinda Christianity Nnab[place] [facility] UNK - Ambulatory Encounter Chuodilia Christianity [place] Gautamwuekathya Christianity Nnab[place] [facility] UNK - Ambulatory Encounter Chuodilia Christianity [place] Gautamwuekathya Christianity Nn[place] [facility] UNK - Ambulatory Encounter Gill Roldankwuemeka Christianity [place] Jamarkwuemeka Christianity Nnabuife [facility] UNK - Ambulatory Encounter Loly Winslow [facility] UNK - Ambulatory Encounter Tiara Christianson [facility] Encounter Edward Christianity [place] Jamarkwuekathya Christianity Nnab[place] [facility] UNK - Ambulatory Encounter Bhavya Pedersen MedAdherence [facility] UNK - Ambulatory Encounter Bhavya Pedersen MedAdherence LinkLogic [facility] UNK - Ambulatory Encounter Gautamwuekathya Christianity [place] Jamarkwuemeka Christianity [place] Tab Matthews [facility] UNK - Ambulatory Encounter Comfort Tomlin [facility] UNK - Ambulatory Encounter Chuodilia Christianity [place] Jamarkwlinda Christianity N[place] [facility] UNK - Ambulatory Encounter Chukkavin Christianity [place] Chukwlinda Christianity N[place] [facility] UNK - Ambulatory Encounter Chukwlinda Christianity [place] Chukwlinda Christianity N[place] [facility] UNK - Ambulatory Encounter Chukkavin Christianity [place] Chukwlinda Christianity N[place] [facility] UNK - Ambulatory Encounter Comfort Leon Christianity [place] Chuvidhyawlinda Christianity Nnabu[place] [facility] COPD with exacerbation - Ambulatory Encounter Tiara Christianson MedAdherence [facility] UNK - Ambulatory Encounter Tiara Christianson MedAdherence [facility] UNK - Ambulatory Encounter Tiara Christianson MedAdherence [facility] UNK - Ambulatory Encounter Chuodilia Christianity [place] Gautamwlinda Christianity Nnab[place] [facility] UNK - Ambulatory Encounter Chuodilia Christianity [place] Gautamwlinda Christianity Nn[place] [facility] UNK - Ambulatory Encounter Gill Leon Christianity [place] Edward Christianity N[place] [facility] UNK - Ambulatory Encounter Lolyvasquez [facility] UNK - Ambulatory Encounter Edward Roa Nnabuinasir Roa Nnabuinasir LinkLogic [facility] UNK - Ambulatory Encounter Loly Thompson [facility] UNK - Ambulatory Encounter Fax Status LinkLogic [facility] UNK - Ambulatory Encounter Fax Status [facility] - Ambulatory Encounter Fax Status LinkLogic [facility] UNK - Ambulatory Encounter Fax Status LinkLogic [facility] UNK - Ambulatory Encounter Fax Status LinkLogic [facility] UNK - Ambulatory Encounter Fax Status LinkLogic [facility] UNK - Ambulatory Encounter Titi Kaitlynn Titi Kaitlynn [facility] UNK - Ambulatory Encounter Titi Kaitlynn Titi Kaitlynn [facility] UNK - Ambulatory Encounter Titi Kaitlynn Titi Kaitlynn [facility] UNK - Ambulatory Encounter Lo Gu Titi Kaitlynn Titi Kaitlynn [facility] MUSCLE SPASMEAR PAIN, RIGHTCandidal vaginitisOtitis media, acute - Ambulatory Encounter Satinder Gu [facility] UNK - Ambulatory Encounter Fax Status LinkLogic [facility] UNK - Ambulatory Encounter Fax Status LinkLogic [facility] UNK - Ambulatory Encounter Fax Status [facility]ic [facility] Services UNK - Ambulatory Encounter Bhavya Bermudezbrandt Palacio [facility] UNK - Ambulatory Encounter Gautamwlinda Roa Nnabuife Edward Roa Nnabuife [facility] UNK - Ambulatory Encounter Satinder Roldankwuemejose j Roa Nnabuife Edward Roa Nnabuife Ayanna Matthews [facility] Breast abnormal findingsChronic bronchitisBMI 50.0-59.9 - Ambulatory Encounter Comfort Trevino LinkLogic [facility] UNK - Ambulatory Encounter Tiara Christianson MedAdherence [facility] UNK - Ambulatory Encounter Tiara Christianson MedAdherence [facility] UNK - Ambulatory Encounter Bhavya Nuvia MedAdherence [facility] UNK - Ambulatory Encounter Bhavya Pedersen MedAdherence [facility] UNK - Ambulatory Encounter Madhumita Sierra [facility] UNK - Ambulatory Encounter Madhumitkaylin Sierra [facility] UNK - Ambulatory Encounter Bhavya Pedersen MedAdherence Stephanie Hernandez [facility] UNK - Ambulatory Encounter Madhumita Sierra [facility] UNK - Ambulatory Encounter Madhumita Sierra [facility] UNK - Ambulatory Encounter Maddarryl Esquivel [facility] UNK - Ambulatory Encounter Nupur Chong [facility] UNK - Ambulatory Encounter Nupur Chong [facility] UNK - Ambulatory Encounter Edwin Lyndsay Umana [facility] UNK - Ambulatory Encounter Edwin Lyndsay Umana [facility] UNK - Ambulatory Encounter Edwin Lyndsay Umana [facility] UNK - Ambulatory Encounter Comfort Ma Gamino [facility] MORBID OBESITYOtitis media, acute - Ambulatory Encounter Fabricio Beard [facility] UNK - Ambulatory Encounter Maddarryl Esquivel [facility] UNK - Ambulatory Encounter Maddarryl Esquivel Francesca Gamino [facility] Candidal vaginitis - Ambulatory Encounter Maddarryl Esquivel [facility] UNK - Ambulatory Encounter Breana Abraham [facility] UNK - Ambulatory Encounter Breana Rosario [facility] UNK - Ambulatory Encounter Maryjessica Soto [facility] UNK - Ambulatory Encounter Fabricio Beard [facility] UNK - Ambulatory Encounter Bria Young [facility] UNK - Ambulatory Encounter [facility] - [facility]ita [facility]wey [facility] - Ambulatory Encounter Comfort Trevino [facility] UNK - Ambulatory Encounter Bhavya Pedersen [facility] UNK - Ambulatory Encounter Comfort Trevino [facility] UNK - Ambulatory Encounter Carmelina Gu [facility] UNK - Ambulatory Encounter Jan Johnson [facility] Tracer Clerk UNK - Ambulatory Encounter Fax Status LinkLogic [facility] UNK - Ambulatory Encounter Fax Status [facility] UNK - Ambulatory Encounter Fax Status [facility] UNK - Ambulatory Encounter Deniz Lira [facility] UNK - Ambulatory Encounter [facility] UN[facility] - Ambulatory Encounter Comfort Trevino [facility] UNK - Ambulatory Encounter Comfort Trevino [facility] UNK - Ambulatory Encounter Comfort Trevino [facility] UNK - Ambulatory Encounter Fax Status [facility] UNK - Ambulatory Encounter Fax Status [facility] UNK - Ambulatory Encounter Comfort Trevino [facility] UNK - Ambulatory Encounter Fax Status [facility] UNK - Ambulatory Encounter Fax Status [facility] UNK - Ambulatory Encounter Comfort Trevino [facility] UNK - Ambulatory Encounter Comfort Trevino [facility] UNK - Ambulatory Encounter Comfort Trevino [facility] UNK - Ambulatory Encounter Comfort Trevino [facility] UNK - Ambulatory Encounter Kimberly Feldman [facility] UNK - Ambulatory Encounter Kimberly Trevino [facility] UNK - Ambulatory Encounter Tab [facility] UNK - Ambulatory Encounter Fax Status [facility] UNK - Ambulatory Encounter Fax Status [facility] UNK - Ambulatory Encounter Fax Status [facility] UNK - Ambulatory Encounter Kimberly Trevino [facility] UNK - Ambulatory Encounter Comfort Trevino [facility] UNK - Ambulatory Encounter Comfort Trevino LinkLogic Kimberlykaylin Jorgensen [facility] UNK - Ambulatory Encounter Fax Status [facility] UNK - Ambulatory Encounter [facility] - Ambulatory Encounter Fax Status [facility] UNK - Ambulatory Encounter Fax Status [facility] UNK - Ambulatory Encounter Comfort TorresLogedward [facility] UNK - Ambulatory Encounter Kimberly Trevino [facility] UNK - Ambulatory Encounter Comfort TorresLogedward Jorgensen [facility] UNK - Ambulatory Encounter [facility] - Ambulatory Encounter Gosai Trevino [facility] UNK - Ambulatory Encounter Comfort TorresLogedward Mayes [facility] UNK - Ambulatory Encounter Comfort Tellez [facility] CHRONIC OBSTRUCTIVE PULMONARY DISEASE, ACUTE EXACERBATIONCHFSLEEP APNEA - Ambulatory Encounter Gill Vilalfuerte [facility] UNK - Ambulatory Encounter Fax Status [facility] - Ambulatory Encounter [...] UNK - Ambulatory Encounter Fax Status [facility] UNK - Ambulatory Encounter Jenny [facility]aston [facility] - Ambulatory Encounter Thea Ward [facility] LOW BACK PAIN - Ambulatory Encounter Sabra Mitcehll [facility] UNK - Ambulatory Encounter Sabra Mitchell [facility] UNK - Ambulatory Encounter Ernesto Gaffney [facility] DEPENDENT EDEMA, LEGS - Ambulatory Encounter [facility] - [facility] - Ambulatory Encounter [facility] UNK - Ambulatory Encounter [facility] UNK [facility] Ambulatory Encounter [facility] UNK - Ambulatory Encounter [facility] UNK [facility] Ambulatory Encounter [facility] UNK - Ambulatory Encounter Malena Isabel [facility] UNK - Ambulatory Encounter Ernesto Matthews [facility] EAR PAIN, RIGHTBLURRED VISIONHEARING DEFICIT - Ambulatory Encounter Latter Day Preload LinkLogic [facility] UNK - Ambulatory Encounter Latter Day Preload LinkLogic [facility] UNK - Ambulatory Encounter Latter Day Preload LinkLogic [facility] UNK - Ambulatory Encounter Latter Day Preload LinkLogic [facility] UNK - Ambulatory Encounter Latter Day Preload [facility] UNK - Ambulatory Encounter Latter Day Preload [facility] UNK - Ambulatory Encounter Latter Day Preload [facility] UNK - Ambulatory Encounter Latter Day Preload [facility] UNK - Ambulatory Encounter Latter Day Preload [facility] UNK - Ambulatory Encounter L[place] Day Preload [facility] UNK - Ambulatory Encounter Latter Day Preload [facility] UNK - Ambulatory Encounter Latter Day Preload [facility] UNK - Ambulatory Encounter Latter [place] Preload [facility] UNK - Ambulatory Encounter [place] Preload [facility] UNK - Ambulatory Encounter [place] Day Preload [facility] UNK - Ambulatory Encounter Latter Day Preload [facility] UNK - Ambulatory Encounter Latter Day Preload [facility] UNK - Ambulatory Encounter [place] Day Preload [facility] UNK - Ambulatory Encounter [place] Preload [facility] UNK - Ambulatory Encounter [place] Preload [facility] UNK - Ambulatory Encounter [place] Preload [facility] UNK - Ambulatory Encounter Latter Day Preload [facility] UNK - Ambulatory Encounter Latter Day Preload [facility] UNK - Ambulatory Encounter Latter Day Preload [facility] UNK - Ambulatory Encounter Latter Day Preload [facility] UNK - Ambulatory Encounter [place] Preload [facility] UNK - Ambulatory Encounter [place] Preload [facility] UNK - Ambulatory Encounter Latter Day Preload [facility] UNK - Ambulatory Encounter [place] Preload [facility] UNK - Ambulatory Encounter Latter [place] Preload [facility] UNK - Ambulatory Encounter Latter Day Preload LinkLogic [facility] UNK - Ambulatory Encounter Latter [place] Preload [facility] UNK - Ambulatory Encounter Latter Day Preload [facility] UNK - Ambulatory Encounter Latter [place] Preload [facility] UNK - Ambulatory Encounter Latter Day Preload LinkLogic [facility] UNK - Ambulatory Encounter Latter Day Preload LinkLogic [facility] UNK - Ambulatory Encounter Latter Day Preload [facility] UNK - Ambulatory Encounter Latter Day Preload [facility] UNK - Ambulatory Encounter Latter Day Preload [facility] UNK - Ambulatory Encounter Latter Day Preload [facility] UNK - Ambulatory Encounter Latter Day Preload LinkLogic [facility] UNK - Ambulatory Encounter Latter Day Preload [facility] UNK - Ambulatory Encounter Latter Day Preload [facility] UNK - Ambulatory Encounter Latter Day Preload [facility] UNK - Ambulatory Encounter Latter Day Preload LinkLogic [facility] UNK - Ambulatory Encounter Latter Day Preload LinkLogic [facility] UNK - Ambulatory Encounter Latter Day Preload LinkLogic [facility] UNK - Ambulatory Encounter Latter Day Preload LinkLogic [facility] UNK - Ambulatory Encounter Latter Day Preload LinkLogic [facility] UNK - Ambulatory Encounter Latter Day Preload LinkLogic [facility] UNK - Ambulatory Encounter Latter Day Preload LinkLogic [facility] UNK - Ambulatory Encounter Latter Day Preload LinkLogic [facility] UNK - Ambulatory Encounter Latter Day Preload LinkLogic [facility] UNK - Ambulatory Encounter Latter Day Preload LinkLogic [facility] UNK - Ambulatory Encounter Latter Day Preload LinkLogic [facility] UNK - Ambulatory Encounter Latter Day Preload LinkLogic [facility] UNK - Ambulatory Encounter Latter Day Preload LinkLogic [facility] UNK - Ambulatory Encounter Latter Day Preload LinkLogic [facility] UNK - Ambulatory Encounter Latter Day Preload LinkLogic [facility] UNK - Ambulatory Encounter Latter Day Preload LinkLogic [facility] UNK - Ambulatory Encounter Latter Day Preload [facility] UNK - Ambulatory Encounter Latter Day Preload [facility] UNK - Ambulatory Encounter Latter Day Preload [facility] UNK - Ambulatory Encounter Latter Day Preload [facility] UNK - Ambulatory Encounter Latter Day Preload [facility] UNK - Ambulatory Encounter Latter [place] Preload [facility] UNK - Ambulatory Encounter [place] Preload [facility] UNK - Ambulatory Encounter [place] Preload [facility] UNK - Ambulatory Encounter Sharpe Gulshan Gaffney [facility] UNK - Ambulatory Encounter [place] [place] Preload [facility] UNK - Ambulatory Encounter [place] Preload [facility] UNK - Ambulatory Encounter [place] Preload [facility] UNK - Ambulatory Encounter [place] Preload [facility] UNK - Ambulatory Encounter Latter [place] Preload [facility] UNK - Ambulatory Encounter Latter [place] Preload [facility] UNK - Ambulatory Encounter Latter [place] Preload [facility] UNK - Ambulatory Encounter [place] Preload [facility] UNK - Ambulatory Encounter Latter Day Preload LinkLogic [facility] UNK - Ambulatory Encounter Latter Day Preload [facility] UNK - Ambulatory Encounter L[place] Preload [facility] UNK - Ambulatory Encounter L[place] Preload [facility] UNK - Ambulatory Encounter Latter Day Preload [facility] UNK - Ambulatory Encounter Latter Day Preload [facility] UNK - Ambulatory Encounter [place] Preload [facility] UNK - Ambulatory Encounter L[place] Preload [facility] UNK - Ambulatory Encounter L[place] Preload [facility] UNK - Ambulatory Encounter Latter Day Preload [facility] UNK - Ambulatory Encounter Latter Day Preload [facility] UNK - Ambulatory Encounter Latter [place] Preload [facility] UNK - Ambulatory Encounter Latter Day Preload [facility] UNK - Ambulatory Encounter Latter Day Preload [facility] UNK - Ambulatory Encounter Latter Day Preload [facility] UNK - Ambulatory Encounter Latter Day Preload [facility] UNK - Ambulatory Encounter Latter Day Preload [facility] UNK - Ambulatory Encounter Latter Day Preload [facility] UNK - Ambulatory Encounter Latter Day Preload [facility] UNK - Ambulatory Encounter Latter Day Preload [facility] UNK - Ambulatory Encounter Latter Day Preload [facility] UNK - Ambulatory Encounter Latter Day Preload [facility] UNK - Ambulatory Encounter Latter Day Preload [facility] UNK - Ambulatory Encounter Latter Day Preload [facility] UNK - Ambulatory Encounter Latter Day Preload [facility] UNK - Ambulatory Encounter Latter Day Preload [facility] UNK - Ambulatory Encounter Latter Day Preload [facility] UNK - Ambulatory Encounter Latter Day Preload [facility] UNK - Ambulatory Encounter Latter Day Preload [facility] UNK - Ambulatory Encounter Latter Day Preload [facility] UNK - Ambulatory Encounter Latter Day Preload [facility] UNK - Ambulatory Encounter Latter Day Preload [facility] UNK - Ambulatory Encounter Latter Day Preload LinkLogic [facility] UNK - Ambulatory Encounter Colleen [facility] UNK - Ambulatory Encounter Sharpe Vo Sharpe [facility] UNK - Ambulatory Encounter Gill Villafuerte LinkLogic Sharpe Vo Sharpe [facility] UNK - Ambulatory Encounter Gill Gaspars Sharpe Vo Sharep [facility] UNK - Ambulatory Encounter Gill Orozco Noy Gill Orozco Noy [facility] - [facility] Encounter Annemarie Gaffney Vanessa Pedersen MedAdherence [facility] UNK - Ambulatory Encounter Gill Orozco Noy Gill Orozco Noy [facility] UNK - Ambulatory Encounter Gill Orozco Noy Gill Orozco Noy Gaffney Honey Gutierrez [facility] COPDNICOTINE ADDICTIONSARCOIDOSISHYPERTENSIONMUSCLE SPASM - Ambulatory Encounter Ernesto Garcia [facility] UNK VITAL SIGNS No Information Available ALLERGIES Allergy Name Onset Date Reaction Criticality Status VICODIN swelling, rashes all over skin High Criticality active LEVAQUIN Breakout in Hives High Criticality active REASON FOR REFERRAL Start Date - End Date Service - Cardiology - External - Xray - Xray - Chest - PA & [...] % of total hemoglobin 7.3 % Edward Roa Nnabui hepatitis B surface antigen Negative LinkLogic Negative [...] 3.4-10.8 High blood glucose, random 256 mg/dL [facility] " hemoglobin A1C, blood, as % of total hemoglobin 8.3 % [facility] hematocrit, blood 37.6 % Kayla Ruel " hemoglobin, blood 11.0 g/dL Kayla Ruel " leukocyte count, blood 9.9 10*3/mm3 Kaylakaylin Lipscomb " Estimated Glomerular Filtration Rate (calc) 90 mL/min/((173/100).m2) Kayla Lipscomb " creatinine, serum 0.80 mg/dL Kayla Ruel [...] drops in each ear Twice a Day Abisaijose j Crispin Delgado NEBULIZER Please use as indicated Edward Delgado METFORMIN HCL 1000 MG TABS TAKE 1 TABLET BY MOUTH TWICE DAILY Tiara Christianson MedAdherence MUCINEX 600 MG ORAL TABLET EXTENDED RELEASE 12 HOUR take 1 tablet twice a day Abisaijose j Crispin Delgado TESSALON PERLES 100 MG ORAL CAPSULE 1 by mouth 3 times a day as needed for cough Abisaijose j Crispin Delgado CONTRAVE 8-90 MG ORAL TABLET EXTENDED RELEASE 12 HOUR 1 tab in the am x 1 week, then 1 tab Twice a Day x 1 week , then 2 tab in the am and 1 tab in the pm x1 week, then 2 tab twice a day Edward Delgado METFORMIN 500MG TAB TAKE 1 TABLET BY MOUTH ONCE DAILY [facility] FREESTYLE LANCETS Use as directed to test blood sugar once daily [facility] ICD CODE E11.9 FREESTYLE LITE TEST IN VITRO STRIP Use as directed to test blood sugar once daily [facility] ICD CODE E11.9 FREESTYLE FREEDOM LITE W/DEVICE KIT Use as directed to test blood sugar once daily [facility] ICD CODE E11.9 BD ULTRA-FINE MICRO PEN NEEDLE 32G X 6 MM use as instructed with kwik pen Edward Delgado PANTOPRAZOLE SOD 40MG TAB TAKE 1 TABLET BY MOUTH ONCE DAILY Tiara Christianson [facility] HUMALOG MIX 75/25 KWIKPEN (75-25) 100 UNIT/ML SC SUPN Take 50 units 15 mins before breakfast, and 26 units 15 mins before dinner daily Kayla Lipscomb AZITHROMYCIN 250 MG ORAL TABLET 2 tablets by mouth on day one then one tablet by mouth each day for a total of 5 days Edward Delgado CHEST CONGESTION RELIEF 400 MG ORAL TABLET take every 4 hours as needed for cough and congestion. - Edward Delgado DOXYCYCLINE HYCLATE 100 MG ORAL CAPSULE 1 by mouth twice a day - Edward Delgado RELION INSULIN SYRINGE 31G X 15/64" 1 ML Use Three Times a Day to administer insulin Tiara INAPPINAdherence Updated directions IPRATROPIUM/ ALBUTER EMI USE 1 AMPULE IN NEBULIZER EVERY 4 HOURS NEEDED FOR WHEEZING Tiara INAPPINAdherence AZITHROMYCIN 250 MG ORAL TABLET 2 tablets [...] By Mouth daily for 4 days - Sharpetaniya Gaffney SYMBICORT 80-4.5 MCG/ACT INHALATION AEROSOL take 2 puffs Twice a Day for copd Sharpe Gulshan AURALGAN 5.5-1.4 % OTIC SOLUTION 2-4 drops [...] POWDER BREATH ACTIVATED 1 puff BID - Sharpe Gulshan LISINOPRIL-HYDROCHLOROTHIAZIDE 10-12.5 MG ORAL TABLET take 1 [...] history E&M Single. Not homeless. Born in [facility]. City: [facility]. State: [place]. Not employed. Retired. Highest education level: high school graduate. Gender of partner(s): male. Nupur Chong " social history reviewed E&M reviewed today Nupur Chong " assessment of health literacy ([facility] 2014 Standards, 3C10) Adequate Nupur Chong " passive cigarette smoke exposure Yes Nupur Chong " smoking status former smoker Nupur Chong time of call 04/02/2019 8:30 AM Daphney Espitia drug use, illicit Never Stephanie Chalo " alcohol use Currently Stephanie Chalo " social history E&M Single. Not homeless. Born in [facility]. City: [facility]. State: [place]. Not employed. Retired. Highest education level: high school graduate. Gender of partner(s): male. Stephanie Isabel " social history reviewed E&M reviewed today Stephanie Isabel " assessment of health literacy ([facility] 2014 Standards, 3C10) Adequate Stephanie Chalo " passive cigarette smoke exposure Yes Stephanie Chalo " smoking status former smoker Stephanie Isabel " Exercise Program Referral T Stephanie Chalo " Weight Management Counseling Provided T Stephanie Chalo " Nutrition intervention Miguel A Isabel sunscreen use No Chukwuemejose j Christianity Nnabuife " Exercise Program Referral T Edward Whiteabuinasir " Weight Management Counseling Provided T Edward Roa Nnabuinasir " Nutrition intervention T Edward Roa Nnabuife " drug use, illicit Never Nupur Chong " alcohol use Currently Nupur Chong " social history E&M Single. Not homeless. Born in [facility]. City: [facility]. State: [place]. Not employed. Retired. Highest education level: high school graduate. Gender of partner(s): male. Nupur Chong " social history reviewed E&M reviewed today Nupur Chong " assessment of health literacy ([facility] 2014 Standards, 3C10) Adequate Nupur Chong " [...] history E&M Single. Not homeless. Born in [facility]. City: [facility]. State: [place]. Not employed. Retired. Highest education level: high school graduate. Gender of partner(s): male. Nupur Chong " social history reviewed E&M reviewed today Nupur Chong " assessment of health literacy ([facility] 2014 Standards, 3C10) Adequate Nupur Chong " passive cigarette smoke exposure No Nupur Chong " smoking status former smoker Nupur Chong time of call 11/21/2018 9:45 AM Joaquim Engel drug use, illicit Never Stephanie Chalo " alcohol use Currently Stephanie Isabel " social history E&M Single. Not homeless. Born in [facility]. City: [facility]. State: [place]. Not employed. Retired. Highest education level: high school graduate. Gender of partner(s): male. Stephanie Isabel " social history reviewed E&M reviewed today Stephanie Isabel " assessment of health literacy ([facility] 2014 Standards, 3C10) Adequate Stephanie Chalo " is there any chance that you could be ? No Stephanie Chalo " passive cigarette smoke exposure No Stephanie Chalo " smoking status former smoker Stephanie Isabel " Exercise Program Referral T Stephanie Isabel " Weight Management Counseling Provided T Stephanie Isabel " Nutrition intervention T Stephanie Chalo time of call 08/07/2018 1:51 PM Clementine Velasquez drug use, illicit Never Hafsa Will " alcohol use Currently Hafsa Will " social history E&M Single. Not homeless. Born in [facility]. City: [facility]. State: [place]. Not employed. Retired. Highest education level: high school graduate. Gender of partner(s): male. Hafsa Will " social history reviewed E&M reviewed today Hafsa Will " assessment of health literacy ([facility] 2014 Standards, 3C10) Adequate Hasfa Will " passive cigarette smoke exposure No Hafsa Will " smoking status former smoker Hafsa Will " Exercise Program Referral T Hafsa Will " Weight Management Counseling Provided T Ahfsa Will " Nutrition intervention T Hafsa Will drug use, illicit Never Violette Pool " alcohol use Currently Violette Pool " social history E&M Single. Not homeless. Born in [facility]. City: [facility]. State: [place]. Not employed. Retired. Highest education level: high school graduate. Gender of partner(s): male. Violette Pool " social history reviewed E&M reviewed today Violette Pool " assessment of health literacy ([facility] 2014 Standards, 3C10) Adequate Violette Pool " passive cigarette smoke exposure No Violette Pool " smoking status former smoker Violette Pool alcohol use Currently Hafsa Will " drug use, illicit Never Hafsa Will " social history E&M Single. Not homeless. Born in [facility]. City: [facility]. State: [place]. Not employed. Retired. Highest education level: high school graduate. Gender of partner(s): male. Hafsa Will " social history reviewed E&M reviewed today Hafsa Will " assessment of health literacy ([facility] 2014 Standards, 3C10) Adequate Hafsa Will " passive cigarette smoke exposure No Hafsa Will " smoking status former smoker Hafsa Will " Exercise Program Referral T Hafsa Will " Weight Management Counseling Provided T Hafsa Will " Nutrition intervention T Hafsa Will drug use, illicit Never Priya Jerad " alcohol use Currently Priya Jerad " social history E&M Single. Not homeless. Born in [facility]. City: [facility]. State: [place]. Not employed. Retired. Highest education level: high school graduate. Gender of partner(s): male. Priya Jerad " social history reviewed E&M reviewed today Priya Jerad " assessment of health literacy ([facility] 2014 Standards, 3C10) Adequate Priya Jerad " is there any chance that you could be ? No Priya Jerad " passive cigarette smoke exposure Yes Priya Jerad " smoking status former smoker Priya Jerad " Exercise Program Referral T Priya Jerad " Weight Management Counseling Provided T Priya Jerad " Nutrition intervention T Priya Mars time of call 05/03/2018 12:59 PM Raysa Potts Exercise Program Referral T Edward Christianity Nnabuife " Weight Management Counseling Provided T Edward Christianity Nnabuife " Nutrition intervention T Edward Christianity Nnabuife " social history E&M Single. Not homeless. Born in [facility]. City: [facility]. State: [place]. Not employed. Retired. Highest education level: high school graduate. Gender of partner(s): male. Alayna Chapman " social history reviewed E&M reviewed today Alayna Chapman " assessment of health literacy ([facility] 2014 Standards, 3C10) Adequate Alayna Chapman " passive cigarette smoke exposure Yes Alayna Chapman " smoking status former smoker Alayna Chapman time of call 04/24/2018 11:41 AM Gayle Serrano drug use, illicit Never Stephanie Isabel " alcohol use Currently Stephanie Isabel " social history E&M Single. Not homeless. Born in [facility]. City: [facility]. State: [place]. Not employed. Retired. Highest education level: high school graduate. Gender of partner(s): male. Stephanie Isabel " social history reviewed E&M reviewed today Stephanie Isabel " assessment of health literacy ([facility] 2014 Standards, 3C10) Adequate Stephanie Chalo " passive cigarette smoke exposure Yes Stephanie [...] history E&M Single. Not homeless. Born in [facility]. City: [facility]. State: [place]. Not employed. Retired. Highest education level: high school graduate. Gender of partner(s): male. Alayna Chapman " social history reviewed E&M reviewed today Alayna Chapman " assessment of health literacy ([facility] 2014 Standards, 3C10) Adequate Alayna Chapman " passive cigarette smoke exposure No Alayna Chapman " smoking status former smoker Alayna Chapman " Exercise Program Referral T Alayna Chapman " Weight Management Counseling Provided T Alayna Chapman " Nutrition intervention T Alayna Chapman Exercise Program Referral T Edward Delgado " Weight Management Counseling Provided T Edward Delgado " Nutrition intervention T Abisaijose j Christianity Danny " alcohol use Currently Alayna Chapman " social history E&M Single. Not homeless. Born in [facility]. City: [facility]. State: [place]. Not employed. Retired. Highest education level: high school graduate. Gender of partner(s): male. Alayna Chapman " social history reviewed E&M reviewed today Alayna Chapman " assessment of health literacy ([facility] 2014 Standards, 3C10) Adequate Alayna Chapman " passive cigarette smoke exposure No Alayna Chapman " smoking status former smoker Alayna Chapman " assessment of health literacy ([facility] 2014 Standards, 3C10) Adequate Alayna Chapman " drug use, illicit Never Alayna Chapman " alcohol use Currently Alayna Krausa " social history E&M Single. Not homeless. Born in [facility]. City: [facility]. State: [place]. Not employed. Retired. Highest education level: high [...] of alcohol or non-prescription drugs No Toma Woods " Suicide Addendum Question 9, attempted suicide [...] Never Vivian Sin " alcohol use Currently Vivian Sin " social history E&M Single. Not homeless. Born in [facility]. City: [facility]. State: [place]. Not employed. Retired. Highest education level: high school graduate. Gender of partner(s): male. Vivian Sin " social history reviewed E&M reviewed today Vivian Sin " passive cigarette smoke exposure No Vivian Sin " smoking status former smoker Vivian Sin " Exercise Program Referral T Vivian Sin " Weight Management Counseling Provided T Vivian Sin " Nutrition intervention Miguel A Sin time of call 12/05/2017 2:22 PM Sera Bob drug use, illicit Never Stephanie Isabel " alcohol use Currently Stephanie Isabel " social history E&M Single. Not homeless. Born in [facility]. City: [facility]. State: [place]. Not employed. Retired. Highest education level: high school graduate. Gender of partner(s): male. Stephanie Isabel " social history reviewed E&M reviewed today Stephanie Isabel " passive cigarette smoke exposure Yes Stephanie Isabel " smoking status former smoker Stephanie Isabel " Exercise Program Referral T Stephanie Isabel " Weight Management Counseling Provided T Stephanie Isabel " Nutrition intervention T Stephanie Isabel time of call 10/25/2017 2:55 PM Ana M Palacio Exercise Program Referral T Abisaijose j Crispin Boyceuife " Weight Management Counseling Provided T Abisaijose j Crispin Boyceuife " Nutrition intervention T Abisaijose j Crispin Whiteabuife " social history E&M Single. Not homeless. Born in [facility]. City: [facility]. State: [place]. Not employed. Retired. Highest education level: high school graduate. Gender of partner(s): male. Jamarvidhyashericelinda Christianity Danny " social history reviewed E&M reviewed today Jamarodilia Crispin Delgado " drug use, illicit Never Nupur Chong " alcohol use Currently Nupur Chong " passive cigarette smoke exposure Yes Nupur Chong " smoking status former smoker Nupur Chong time of call 09/02/2017 9:48 AM Donnamichael Landis sunscreen use No Edward Christianity Austenuinasir " social history E&M Single. Not homeless. Born in [facility]. City: [facility]. State: [place]. Not employed. Retired. Highest education level: high school graduate. Gender of partner(s): male. Jamarodilia Christianity Danny " social history reviewed E&M reviewed today Opalfabiánjose j Crispin Delgado " passive cigarette smoke exposure Yes Taina Gu " smoking status former smoker Taina Gu time of call 08/11/2017 8:56 AM Donnamichael Landis Exercise Program Referral T Titi Calderón " Weight Management Counseling Provided T Titi Calderón " Nutrition intervention T Titicleveland Sommermi " passive cigarette smoke exposure No Tianakaylin Gu " smoking status former smoker Taina Gu time of call 07/21/2017 4:25 PM Alayna Gu social history E&M Single. Not homeless. Born in [facility]. City: [facility]. State: [place]. Not employed. Retired. Highest education level: high school graduate. Gender of partner(s): male. Edward Delgado " social history reviewed E&M reviewed today Abisaijose j Crispin Delgado " Exercise Program Referral T Edward Delgado " Weight Management Counseling Provided T Edward Delgado " Nutrition intervention Miguel A Boyceuinasir time of call 07/08/2017 10:03 AM Ana M Palacio " passive cigarette smoke exposure No Taina Riccardo " smoking status former smoker Taina Riccardo Exercise Program Referral Miguel A Umana " [...] " smoking status former smoker Francesca Gamino social history E&M Single. Not homeless. Born in [facility]. City: [facility]. State: [place]. Not employed. Retired. Highest education level: high [...] Winslow smoking status Current every day smoker Nabor smoking status Current every day smoker [employer] [...] history E&M Single. Not homeless. Born in [facility]. City: [facility]. State: [place]. Not employed. Retired. Highest education level: high school graduate. Gender of partner(s): male. Honey Gutierrez " drug use, illicit Never Honeytejas Gutierrez " alcohol use Never Honeytejas Gutierrez " Occupation #1 Retired Honey Gutierrez " patient considered to be homeless No Honey Gutierrez " passive cigarette smoke exposure Yes Honey Gutierrez " cigarettes, number smoked per day 1 pack Honey Brenda " smoking status current every day smoker Honey Gutierrez FUNCTIONAL STATUS Date Observation Value Provider total score, Activities of Daily Living (ADL) Independent Edward Delgado Activities of Daily Living (ADLs, IADLs, etc.) Decrease in ADL Edward Delgado MENTAL STATUS Date Observation Value Provider assessment of judgment and insight E&M intact Edward Delgado " assessment of mood and affect E&M no depression, anxiety, or agitation Edward Delgado " mental status examination: orientation E&M oriented to time, place, and person Edward Delgado " Generalized Anxiety Disorder Questionnaire - Question 2 0 Nupur Chong " Generalized Anxiety Disorder Questionnaire - Question 1 0 Nupur Chong assessment of judgment and insight E&M intact Edward Fragafe " mental status examination: orientation E&M oriented to time, place, and person [facility] " assessment of mood and affect E&M no depression, anxiety, or agitation [facility]ose j [facility] [place] " Generalized Anxiety Disorder Questionnaire - Question 2 0 Stephanie Isabel " Generalized Anxiety Disorder Questionnaire - Question 1 0 Stephanie Isabel assessment of judgment and insight E&M intact [facility] " mental status examination: orientation E&M oriented to time, place, and person [facility] Christianity abui " assessment of mood and affect E&M anxious, depressed mood [facility] " Generalized Anxiety Disorder Questionnaire - Question [...] assessment of judgment and insight E&M intact [facility] Christianity [facility] " mental status examination: orientation E&M oriented to time, place, and person [facility] " assessment of mood and affect E&M anxious, depressed mood [facility] " Generalized Anxiety Disorder Questionnaire - Question 2 0 Stephanie Isabel " Generalized Anxiety Disorder Questionnaire - Question 1 0 Stephanie Chalo assessment of judgment and insight E&M intact [facility] [place] [place] " mental status examination: orientation E&M oriented to time, place, and person [facility] Christianity abui " assessment of mood and affect E&M anxious, depressed mood [facility] Whiteabuife mental status examination: orientation E&M alert and oriented Tiny Mckeon " assessment of mood and affect E&M normal affect Tiny George Mckeon Generalized Anxiety Disorder Questionnaire - Question 2 0 Hafsa Suman " Generalized Anxiety Disorder Questionnaire - Question 1 0 Hafsa Will Generalized Anxiety Disorder Questionnaire - Question 2 0 Violette Welch " Generalized Anxiety Disorder Questionnaire - Question 1 0 Violette Welch assessment of judgment and insight E&M intact Chuvidhyawfabiánmejose j Christianity Nnabuife " mental status examination: orientation E&M oriented to time, place, and person Chukwlinda Christianity Nnabuife " assessment of mood and affect E&M anxious, depressed mood Chukwfabiánmejose j Christianity Nnabuife assessment of judgment and insight E&M intact [place]ukwuem[place]a Christianity Nnabuife " mental status examination: orientation E&M oriented to time, place, and person Chukwfabiánmejose j Christianity Nnabuife " assessment of mood and affect E&M anxious, depressed mood Chukwlinda Christianity Nnabuife " Generalized Anxiety Disorder Questionnaire - Question 2 0 Priya Mars " Generalized Anxiety Disorder Questionnaire - Question 1 0 Priya Mars assessment of judgment and insight E&M intact Chukwfabiánmeka Christianity Nnabuife " mental status examination: orientation E&M oriented to time, place, and person Chukwfabiánmejose j Christianity Nnabuife " assessment of mood and affect E&M anxious, depressed mood Chukwlinda Christianity Nnabuife " Generalized Anxiety Disorder Questionnaire - Question 2 0 Alayna Chapman " Generalized Anxiety Disorder Questionnaire - Question 1 0 Alayna Chapman assessment of judgment and insight E&M intact Chukwfabiánmeka Christianity Nnabuife " mental status examination: orientation E&M oriented to time, place, and person Chukwfabiánmejose j Christianity Nnabuife " assessment of mood and affect E&M anxious, depressed mood Chukwfabiánmejose j Christianity Nnabuife " Generalized Anxiety Disorder Questionnaire - Question 2 0 Stephanie Isabel " Generalized Anxiety Disorder Questionnaire - Question 1 0 Stephanie Isabel assessment of judgment and insight E&M intact Chukwfabiánmeka Christianity Nnabuife " mental status examination: orientation E&M oriented to time, place, and person [facility] " assessment of mood and affect E&M anxious, depressed mood [facility] " Generalized Anxiety Disorder Questionnaire - Question 2 0 Alayna Chapman " Generalized Anxiety Disorder Questionnaire - Question 1 0 Alayna Chapman assessment of judgment and insight E&M intact Edward Fraga " mental status examination: orientation E&M oriented to time, place, and person [facility] " assessment of mood and affect E&M anxious, depressed mood [facility] " Generalized Anxiety Disorder Questionnaire - Question 2 0 Alayna Chapman " Generalized Anxiety Disorder Questionnaire - Question 1 0 Alayna Chapman assessment of judgment and insight E&M intact Edward Fraga " mental status examination: orientation E&M oriented to time, place, and person [facility] [place] [place] " assessment of mood and affect E&M anxious, depressed mood [facility] [place] " Generalized Anxiety Disorder Questionnaire - Question [...] rate, normal tone, normal volume, spontaneous Toma Wodos " mental status assessment, motor activity normal gait, normal posture Toma Woods " behavior (mental status exam) appropriate, candid, cooperative, good eye contact, polite, responsive, tearful Toma Woods " mental appearance (mental status exam) adequate hygiene, appropriate dress, looks like stated age, neat Toma Woods " delusion No Toma Woods " hallucinations none Toma Woods assessment of mood and affect E&M anxious, depressed mood [facility] " assessment of judgment and insight E&M intact [facility] " mental status examination: orientation E&M oriented to time, place, and person [facility] " If any problems checked, how difficult have these problems made it for you to do your work, take care of things at home, or get along with other people (GAD7, question 8) 2 Stephanie Byers " Generalized Anxiety Disorder Questionnaire - Question 7 3 Stephanie Byers " Generalized Anxiety Disorder [...] assessment of judgment and insight E&M intact [facility] " mental status examination: orientation E&M oriented to time, place, and person [facility] " assessment of mood and affect E&M no depression, anxiety, or agitation [facility] " Generalized Anxiety Disorder Questionnaire - Question 2 0 Stephanie Isabel " Generalized Anxiety Disorder Questionnaire - Question 1 0 Stephanie Isabel Generalized Anxiety Disorder Questionnaire - Question 2 0 Nupur Chong " Generalized Anxiety Disorder Questionnaire - Question 1 0 Nupur Chong mental status examination: recall E&M intact for recent and remote events [facility] " assessment of judgment and insight E&M intact [facility] " mental status examination: orientation E&M oriented to time, place, and person Chukwuemeka Christianity Nnabuife " assessment of mood and affect E&M no depression, anxiety, or agitation [facility] " Generalized Anxiety Disorder Questionnaire - Question [...] E&M intact for recent and remote events [facility] Whiteabuife " mental status examination: orientation E&M oriented to time, place, and person [facility] " assessment of judgment and insight [facility]M intact [facility] " assessment of mood and affect E&M no depression, anxiety, or agitation [facility] " Generalized Anxiety Disorder Questionnaire - Question 2 0 Taina Gu " Generalized Anxiety Disorder Questionnaire - Question 1 0 Taina Gu Generalized Anxiety Disorder Questionnaire - Question 2 0 Francesca Gamino " Generalized Anxiety Disorder Questionnaire - Question 1 0 Francesca Gamino assessment of judgment and insight E&M intact Madhumita Sierra " assessment of mood and affect E&M no depression, anxiety, or agitation Madhumita Sierra " If any problems checked, how [...] Disorder Questionnaire - Question 1 3 Loly Short Generalized Anxiety Disorder Questionnaire - Question 2 3 Loly Short " Generalized Anxiety Disorder Questionnaire - Question 1 3 Loly Short Generalized Anxiety Disorder Questionnaire - Question 2 0 Colleen Pace " Generalized Anxiety Disorder Questionnaire - Question 1 0 Colleen Pace MEDICAL EQUIPMENT No Information Available FAMILY HISTORY No Information Available INSURANCE PROVIDERS Payer name Policy type / Coverage type Covered constitution party ID [employer] HMO Medicare HMO [id number] ADVANCE DIRECTIVES No Information Available TREATMENT PLAN [...] - - Est Patient Exp Problem - 93769 Est Patient Detailed - 84517 New Patient Intermediate Opt - 95885 Finger Stick Glucose Ear Irrigation Est Patient Exp Problem - 57280 Est Patient Exp Problem - 14440 Retinal Screening Est Patient Well Exam (40 - 64 Yrs) - 65581 Est Patient Detailed - 01416 Est Patient Exp Problem - 36819 Est Patient Exp Problem - 71763 New Patient Comprehensive - 93940 Glucose Stick Est Patient Exp Problem - 28408 Glucose Stick Est Patient Exp Problem - 27153 Prescription Assistance (Non-HIV) Glucose Stick Est Patient Exp Problem - 59358 Endocrinology - Adult - [facility] HEMOGLOBIN A1C - In House Est Patient Exp Problem - 84955 Est Patient Detailed - 89706 Est Patient Exp Problem - 38765 Est Patient Detailed - 87747 IB Assessment - Gaggerman Diagnostic evaluation (no medical) - 52857 Integrated Behavioral Health Assessment (IBH) Est Patient Exp Problem - 49183 Est Patient Detailed - 33808 Ofc Vst, Est Level V Est Patient Exp Problem - 12084 Est Patient Exp Problem - 03054 Ofc Vst, Est Level IV Est Patient Exp Problem - 37535 Ofc Vst, Est Level V Est Patient Exp Problem - 09744 Est Patient Detailed - 93473 Est Patient Detailed - 75364 ALBUTEROL INHAL ADMIN THRU DME 1MG Est Patient Detailed - 31323 Est Patient Exp Problem - 03455 Est Patient Exp Problem - 88554 Ear Irrigation Est Patient Exp Problem - 89698 Ofc Vst, Est Level III Est Patient Exp Problem - 63017 HISTORY OF PROCEDURES Procedure Date Procedure Name Provider Procedure Notes Status New Patient Intermediate Opt - 37513 Satinder Harman completed Finger Stick Glucose Satinder Harman completed Ear Irrigation Satinder Harman completed Glucose Stick Gill Villafuerte completed Glucose Stick Satinder Harman completed Glucose Stick Gill Villafuerte completed HEMOGLOBIN A1C - In House Comfort Trevino completed [facility] Assessment - Gaggerman Toma Woods completed Diagnostic evaluation (no medical) - 13308 Toma Woods completed ALBUTEROL INHAL ADMIN THRU DME 1MG Deniz Brown completed Ear Irrigation Thea Junior completed GOALS No Information Available [facility] No Information Available
--- OUTSIDE RECORDS SUMMARY | 2019-09-25 17:37 | XMS REPORT ---
Author Author Admin, [place] Organization Unknown Address Unknown Phone Unavailable PROBLEMS Condition Status Date Provider Notes Hypokalemia, mild active Edward Magañaian Nnabuife Chronic pain syndrome active Edward Roa N[place]uife Cerumen impaction, bilateral active Edward Magañaian [place] Well woman exam active Chuodilia Magañaian [place] BMI 50.0-59.9 active Edward Buddhist [place] BMI 60.0-69.9, adult completed - Edward [...] active Edward Delgado Depression, major active Edward Whiteabmelitafe COPD with exacerbation active Edward Whiteabmelitafe BMI 50.0-59.9 completed - Tiny Mckeon Chronic bronchitis active Edward Delgado Breast abnormal findings active Edward Whiteabmelitafe Otitis media, acute completed - Titicleveland Sommermi MORBID OBESITY active Edwin Umana Candidal vaginitis completed - Titi Kaitlynn SLEEP APNEA active Comfort Trevino CHF active Comfort Trevino CHRONIC OBSTRUCTIVE PULMONARY DISEASE, ACUTE EXACERBATION completed - Comfort Trevino LOW BACK PAIN active Thea Puppala DEPENDENT EDEMA, LEGS active Sharpe Vo HEARING DEFICIT active Baljinderniesha Isabel BLURRED VISION active Baljinder Chalo EAR PAIN, RIGHT completed - Titi Kaitlynn MUSCLE SPASM completed - Titi Kaitlynn HYPERTENSION active Gill Villafuerte SARCOIDOSIS active Gill Villafuerte NICOTINE ADDICTION active Sharpetaniya Gaffney COPD active Annemarie Gaffney ENCOUNTERS Date Type Provider Location Encounter Diagnosis - Ambulatory Encounter Edward Whiteabjaimie Roa Nnabuife [facility] [employer] - Ambulatory Encounter Edward Whiteabuinasir Roa Nnabuife [facility] [employer] - Ambulatory Encounter Gill Roa [place] Francesca Ernesto Diana [facility] UNK - Ambulatory Encounter Comfort Ellsworth [facility]Adherence, [facility] UNK - Ambulatory Encounter Comfort Marroquin MedAdherence, [facility] Services UNK - Ambulatory Encounter Edward Whiteabuinasir Whiteabuife LinkLogic [facility] UNK - Ambulatory Encounter Comfort Hernandez [facility]K - Ambulatory Encounter Fax Status LinkLogic [facility] Services UNK - Ambulatory Encounter [facility] UNK - Ambulatory Encounter Fax Status [facility] UNK - Ambulatory Encounter Edward Whiteabuinasir Roa [facility] - Ambulatory Encounter Satinder Ghazal Roa N[place]uife Edward Roa Nnabuife [facility] Hypokalemia, mild - Ambulatory Encounter Edward Roa Nnabuife Edward Magañaian Nnabuife [facility] UNK - Ambulatory Encounter LSJ Lab Support Desktop LinkLogic Edward Whiteabuife Edward Buddhist Nnabuife [facility] UNK - Ambulatory Encounter Fax [facility] UNK - Ambulatory Encounter Fax Status LinkLogic [facility] Services UNK - Ambulatory Encounter Fax Status LinkLogic [facility] UNK - Ambulatory Encounter Fax Status LinkLogic [facility] UNK - Ambulatory Encounter Chuvidhyawallanjose j Buddhist Nnabuife Chukwuemejose j Buddhist Nnabuife [facility] UNK - Ambulatory Encounter Churameshjose j Buddhist N[place]ife Chukwuemejose j Buddhist Nnabuife [facility] UNK - Ambulatory Encounter Churameshjose j Buddhist Nnabuife Chukwuemejose j Buddhist Nnabuife [facility] UNK - Ambulatory Encounter Satinder Leon Buddhist Nnabuife Jamarkwlinda Buddhist Nnabuife Sheryl Odonnell [facility] UNK - Ambulatory Encounter Comfort Pedersen MedAdherence [facility] UNK - Ambulatory Encounter Comfort Christianson MedAdherence [facility] UNK - Ambulatory Encounter Tiara Christianson [facility] UNK - Ambulatory Encounter Edward Magañaian Nnabuife Gautamwlinda Buddhist Nnabuife LinkLogic [facility] UNK - Ambulatory Encounter Osiris Gordon LinkLogic [facility] UNK - Ambulatory Encounter Edward Buddhist Nnabuife Jamarkwfabiánmejose j Buddhist Nnabuife LinkLogic [facility] UNK - Ambulatory Encounter Comfort Christianson MedAdherence [facility] UNK - Ambulatory Encounter Chukkavin Buddhist Nnabuife Jamarkwlinda Buddhist Nnabuife [facility] UNK - Ambulatory Encounter Chukwlinda Buddhist Nnabuife Chukwlinda Buddhist Nnabuife [facility] UNK - Ambulatory Encounter Chukwlinda Buddhist Nnabuife Chukwlinda Buddhist Nnabuife [facility] UNK - Ambulatory Encounter Satinder Leon Buddhist Nnabuife Chukwlinda Buddhist Nnabuife [facility] Chronic pain syndrome - Ambulatory Encounter Edward Buddhist Nnabuife Chukwlinda Buddhist Nnabuife [facility] UNK - Ambulatory Encounter LSJ Lab Support Desktop LinkLogic Chukwuekathya Buddhist Nnabuife Chukwuemejose j Buddhist Nnabuife [facility] UNK - Ambulatory Encounter Chuodilia Buddhist Nnabuife Chukwuemejose j Buddhist Nnabuife [facility] UNK - Ambulatory Encounter Chuodilia Buddhist Nnabuife Chukwuekathya Buddhist Nnabuife [facility] UNK - Ambulatory Encounter Comfort Leon Buddhist Nnabuife Chukwlinda Buddhist Nnabuife Osorio [facility] Well woman examCerumen impaction, bilateral - Ambulatory Encounter Satinder Christianson MedAdherence [facility] UNK - Ambulatory Encounter Satinder Christianson MedAdherence Eusebia Delaney UNK - Ambulatory Encounter Satinder Christianson MedAdherence Edward Magañaian Nnabuife Gautamwlinda Buddhist Nnabuife Eusebia Kalin [facility] UNK - Ambulatory Encounter Satinderchristopher Christianson MedAdherence [facility] UNK - Ambulatory Encounter Tiara Christians[facility] UNK - Ambulatory Encounter Edawrd Roa Nnabuife Gautamwfabiánmejose j Magañaian Nnabuife LinkLogic [facility] UNK - Ambulatory Encounter Edward Rao Nnabuife Gautamwlinda Buddhist Nnabuife LinkLogic [facility] UNK - Ambulatory Encounter Satinder Christianson MedAdherence [facility] UNK - Ambulatory Encounter Satinder Harman [facility] UNK - Ambulatory Encounter Fax Status [facility] UNK - Ambulatory Encounter Fax Status [facility] UNK - Ambulatory Encounter Fax Status Link[facility] UNK - Ambulatory Encounter Fax Status [facility] UNK - Ambulatory Encounter Fax Status Link[facility] UNK - Ambulatory Encounter Fax Status [facility] UNK - Ambulatory Encounter Satinder Montemayor Estrada [facility] UNK - Ambulatory Encounter Tiara Christianson MedAdherence Satinder Engel [facility] Contact Center UNK - Ambulatory Encounter Kimberly Oleary Francesca Delroy Magañaian Nnabuife Edward Magañaian Nnabuife [facility] Services Contact Center UNK - Ambulatory Encounter Satinder Christianson MedAdherence [facility] UNK - Ambulatory Encounter Satinder Harman LinkLogic [facility] UNK - Ambulatory Encounter Fax Status [facility] Services UNK - Ambulatory Encounter Kishanmitkaylin Christianson MedAdherence [facility] UNK - Ambulatory Encounter Edward Magañaian Nnabuife Edward Buddhist Nnabuife LinkLogic [facility] UNK - Ambulatory Encounter Edward Buddhist Nnabuife Edward Buddhist Nnabuife LinkLogic [facility] UNK - Ambulatory Encounter Chuodilia Buddhist Nnabuife Edward Buddhist Nnabuife [facility] UNK - Ambulatory Encounter Chuodilia Buddhist Nnabuife Edward Buddhist Nnabuife [facility] UNK - Ambulatory Encounter Chuodilia Buddhist Nnabuife Edward Buddhist Nnabuife [facility] UNK - Ambulatory Encounter Madhumitkaylin Leon Buddhist Nnabuife Edward Buddhist Nnabuife [facility] BMI 60.0-69.9, adultBMI 50.0-59.9 - Ambulatory Encounter Alayna Nava [facility] UNK - Ambulatory Encounter Kayla Ruel [facility] UNK - Ambulatory Encounter Kayla Ruel [facility] UNK - Ambulatory Encounter Edward Whiteabuinasir Roa Nnabuinasir Gomeza Ruel [facility] UNK - Ambulatory Encounter Satinder Christianson MedAdherence Kayla Whiteabjaimie [facility] UNK - Ambulatory Encounter Fax Status LinkLogic [facility] UNK - Ambulatory Encounter Fax Status LinkLogic [facility] UNK - Ambulatory Encounter Fax Status [facility] UNK - Ambulatory Encounter Fax Status LinkLogic [facility] UNK - Ambulatory Encounter Bhavya Pedersen MedAdherence Clementine Velasquez [facility] Services [facility] UNK - Ambulatory Encounter Edward Whiteabuinasir Whiteabuinasir [facility] UNK - Ambulatory Encounter Edward Whiteabuinasir Whiteabuife [facility] UNK - Ambulatory Encounter Edward Whiteabuinasir Whiteabuife [facility] UNK - Ambulatory Encounter Comfort Leon Buddhist Nnabuife Edward Buddhist Nnabuife [facility] Dyspnea at restCHF exacerbation - Ambulatory Encounter Tiny Vazquez Mckeon Tiny [facility]azquez [facility] - [facility]ulatory Encounter Tiny Vazquez Mckeon Tiny Vazquez Mckeon Violet[facility] BMI 50.0-59.9BMI 60.0-69.9, adult - Ambulatory Encounter Kayla [facility] UNK - Ambulatory Encounter Satinder Christianson [facility] Francesca Potts [facility] Services [facility] UNK - Ambulatory Encounter Violette Yuri Kayla [facility] UNK - Ambulatory Encounter Chukwlinda Buddhist Nnabuife Edward Buddhist Nnabuife LinkLogic [facility] UNK - Ambulatory Encounter Chuvidhyawlinda Buddhist Nnabuife Edward Buddhist Nnabuife [facility] UNK - Ambulatory Encounter Chukkavin Buddhist Nnabuife Gautamwlinda Buddhist Nnabuife [facility] UNK - Ambulatory Encounter Chukkavin Buddhist Nnabuife Gautamwlinda Buddhist Nnabuife [facility] UNK - Ambulatory Encounter Chuodilia Buddhist Nnabuife Edward Buddhist Nnabuife [facility] UNK - Ambulatory Encounter Gill Leon Buddhist Nnabuife Edward Buddhist Nnabuife Violette Will [facility] Acute upper respiratory infection - Ambulatory Encounter Bhavya [facility]ersen [facility] UNK - Ambulatory Encounter Satinder Harman [facility] UNK - Ambulatory Encounter Bhavya Pedersen [facility] Services Contact Center UNK - Ambulatory Encounter Comfort Trevino [facility] UNK - Ambulatory [facility] - Ambulatory Encounter Fax Status [facility] UNK - Ambulatory Encounter Fax Status [facility] UNK - Ambulatory Encounter Fax Status [facility] UNK - Ambulatory Encounter Alayna Chapman [facility] UNK - Ambulatory Encounter Edward Roa Nnabuife Edward Buddhist Nnabuife [facility] UNK - Ambulatory Encounter Edward Magañaian Nnabuife Edward Buddhist Nnabuife [facility] UNK - Ambulatory Encounter Edward Magañaian Nnabuife Edward Buddhist Nnabuife [facility] UNK - Ambulatory Encounter Satinder Magañaian Nnabuife Edward Buddhist Nnabuife Priya Mars [facility] UNK - Ambulatory Encounter Parris Oleary [facility] UNK - Ambulatory Encounter Chukwfabiánmejose j Buddhist Nn[place]uife Chukwuemejose j Buddhist Nnabuife LinkLogic [facility] UNK - Ambulatory Encounter Bhavya Pedersen MedAdherence Kirsten Green Stacey Chukwuemeka Buddhist Nnabuife Chukwuemejose j Buddhist Nnabuife Raysa Potts [facility] Contact Center UNK - Ambulatory Encounter Chukwuemejose j Buddhist Nnabuife Chukwuemeka Buddhist Nnabuife [facility] UNK - Ambulatory Encounter Chukwfabiánmejose j Buddhist Nnabuife Chukwuemeka Buddhist Nnabuife [facility] UNK - Ambulatory Encounter Chukwlinda Buddhist Nnabuife Chukwuemejose j Buddhist Nnabuife [facility] UNK - Ambulatory Encounter Chukwlinda Buddhist Nnabuife Chukwuemejose j Buddhist Nnabuife [facility] UNK - Ambulatory Encounter Gill Chapman Chukwuemejose j Buddhist Nnabuife Chukwuemejsoe j Buddhist Nnabuife [facility] UNK - Ambulatory Encounter Bhavya Pedersen MedAdherence [facility] UNK - Ambulatory Encounter Kayla Serrano [facility] Contact Center UNK - Ambulatory Encounter Chukwuemejose j Buddhist Nnabuife Chukwuemejose j Buddhist Nnabuife [facility] UNK - Ambulatory Encounter Tab Chang [facility] UNK - Ambulatory Encounter Chukwuemeka Buddhist Nnabuife Chukwuemeka Buddhist Nnabuife [facility] UNK - Ambulatory Encounter Chukwuemeka Buddhist Nnabuife Chukwuemeka Buddhist Nnabuife [facility] UNK - Ambulatory Encounter LSJ Lab Support Desktop LinkLogic Tab Florezwlinda Buddhist Nnabuife Chukwuemeka Buddhist Nnabuife [facility] UNK - Ambulatory Encounter Chukwuemeka Buddhist Nnabuife Chukwuemeka Buddhist Nnabuife [facility] UNK - Ambulatory Encounter Chukwuemejose j Buddhist Nnabuife Chukwuemeka Buddhist Nnabuife [facility] UNK - Ambulatory Encounter Chukwuemejose j Buddhist Nnabuife Chukwuemeka Buddhist Nnabuife [facility] UNK - Ambulatory Encounter Comfort Christianson [facility] Chukwuemejose j Buddhist Nnabuife Chukwuemejose j Buddhist Nnabuife Marielena Reich [facility] Screening for diabetes mellitusScreening for lipid disorder - Ambulatory Encounter Chukwlinda Buddhist Nnabuife Chukwuemejose j Buddhist Nnabuife [facility] GERD - Ambulatory Encounter Chukkavin Buddhist Nn[place]uife Chukwuemejose j Buddhist Nnabuinasir Isabel [facility] UNK - Ambulatory Encounter Chukwuekathya Buddhist Nnabuife Chukwuemejose j Buddhist Nnabuife [facility] UNK - Ambulatory Encounter Tab Leon Buddhist Nnabuife Chukwlinda Buddhist Nnabuife Vivian Toro Pope Usman [facility] Services Contact Center UNK - Ambulatory Encounter Chukwuekathya Buddhist Nnabuife Chukwuemeka Buddhist Nnabuife [facility] UNK - Ambulatory Encounter Chukwuemejose j Buddhist Nnabuife Chukwuemejose j Buddhist Nnabuife [facility] UNK - Ambulatory Encounter Chukwuemejose j Buddhist Nnabuife Chukwuemejose j Buddhist Nnabuife [facility] UNK - Ambulatory Encounter Comfort Leon Buddhist Nn[place]uife Chukwuemejose j Buddhist Nnabuife [facility] Diabetes mellitus type II - Ambulatory Encounter Chukwuemejose j Buddhist Nnabuife Chukwuemejose j Buddhist Nnabuife LinkLogic [facility] UNK - Ambulatory Encounter Chukwuemejose j Buddhist Nnabuife Chukwuemejose j Buddhist Nnabuife LinkLogic [facility] UNK - Ambulatory Encounter Loly Winslow [facility] UNK - Ambulatory Encounter Chukwuemejose j Buddhist Nnabuife Chukwuemeka Buddhist Nnabuife LinkLogic [facility] UNK - Ambulatory Encounter Chukwuemejose j Buddhist Nnabuife Chukwuemeka Buddhist Nnabuife [facility] UNK - Ambulatory Encounter Chukwuemejose j Buddhist Nnabuife Chukwuemeka Buddhist Nnabuife [facility] UNK - Ambulatory Encounter Chuodilia Buddhist Nnabuife Edward Buddhist Nnabuife [facility] UNK - Ambulatory Encounter Chuodilia Buddhist Nnabuife Edward Buddhist Nnabuife [facility] UNK - Ambulatory Encounter Satinder Leon Buddhist Nnabuife Edward Buddhist Nnabuife [facility] UNK - Ambulatory Encounter Tiara Christianson MedAdherence [facility] UNK - Ambulatory Encounter Bhavya Pedersen MedAdherence [facility] UNK - Ambulatory Encounter Bhavya Pedersen MedAdherence LinkLogic [facility] UNK - Ambulatory Encounter Titi Kaitlynn Titi Kaitlynn LinkLogic [facility] UNK - Ambulatory Encounter Chuodilia Buddhist Nnabuife Edward Buddhist Nnabuife LinkLogic [facility] UNK - Ambulatory Encounter Chuodilia Buddhist Nnabuife Edward Buddhist Nnabuife LinkLog[facility] UNK - Ambulatory Encounter Chuodilia Buddhist Nnabuife Edward Buddhist Nnabuife [facility] UNK - Ambulatory Encounter Chuodilia Buddhist Nnabuife Edward Buddhist Nnabuife [facility] UNK - Ambulatory Encounter Chuodilia Buddhist Nnabuife Edward Buddhist Nnabuife [facility] UNK - Ambulatory Encounter Edward Whiteabuinasir Roa N[facility] UNK - Ambulatory Encounter Comfort Roa Nnabuinasir Roa N[facility]ab[facility]ife [facility] Abdominal distensionAbdominal pain, chronicAscitesUrinary retention - Ambulatory Encounter Tiara Christianson [facility] UNK - Ambulatory Encounter Tiara Christianson MedAdherence Loly Goldy Bakerlo [facility] UNK - Ambulatory Encounter Tiara Christianson [facility] - Ambulatory Encounter Comfort [facility] - Ambulatory Encounter Mae Rickstiz [facility] UNK - Ambulatory Encounter Fax Status LinkLogic [facility] UNK - Ambulatory Encounter Fax Status LinkLogic [facility] UNK - Ambulatory Encounter Fax Status LinkLogic [facility] UNK - Ambulatory Encounter Fax Status [facility] UNK - Ambulatory Encounter Fax Status [facility] UNK - Ambulatory Encounter Fax Status [facility] UNK - Ambulatory Encounter Edward Whiteabjaimie Roa N[facility] UNK - Ambulatory Encounter Edward Whiteabuife Chukwuemeka Buddhist Nnabuife [facility] UNK - Ambulatory Encounter Edward Magañaian Nnabuife Edward Buddhist Nnabuife [facility] UNK - Ambulatory Encounter Toma Woods [facility] Mood Disorder, NOS - Ambulatory Encounter Lo Leon Buddhist Nnabuife Edward Buddhist Nnabuife Vivian Matthews [facility] Depression, majorSuicidal ideation - Ambulatory Encounter Comfort Trevino [facility] UNK - Ambulatory Encounter Tiara [facility] UNK - Ambulatory Encounter Bhavya Pedersen [facility] UNK - Ambulatory Encounter Bhavya Pedersen [facility] UNK - Ambulatory Encounter Edward Whiteabuife Edward Magañaian Nnabuife [facility] UNK - Ambulatory Encounter Edward Buddhist Nnabuife Edward Buddhist Nnabuife [facility] UNK - Ambulatory Encounter Edward Buddhist Nnabuife Edward Buddhist Nnabuife [facility] UNK - Ambulatory Encounter Edward Buddhist Nnabuife Edward Buddhist Nnabuife [facility] UNK - Ambulatory Encounter Edward Buddhist Nnabuife Edward Buddhist Nnabuife [facility] UNK - Ambulatory Encounter Gill Florezwlinda Buddhist Nnabuife Edward Buddhist Nnabuife [facility] UNK - Ambulatory Encounter Loly Goldy [facility] UNK - Ambulatory Encounter Tiara Christianson [facility]herence [facility] UNK - Ambulatory Encounter Edward Magañaian Nnabuinasir Leon Buddhist Nnabuife [facility] UNK - Ambulatory Encounter Bhavya Pedersen MedAdherence [facility] UNK - Ambulatory Encounter Bhavya Pedersen MedAdherence LinkLogic [facility] UNK - Ambulatory Encounter Chuodilia Buddhist Nnabuife Edward Buddhist Nnabuife Tab Matthews [facility] UNK - Ambulatory Encounter Comfort Trevino LinkLog [facility] UNK - Ambulatory Encounter Edward Buddhist Nnabuife Edward Buddhist Nnabuife [facility] UNK - Ambulatory Encounter Chuodilia Buddhist Nnabuife Edward Buddhist Nnabuife [facility] UNK - Ambulatory Encounter Chuodilia Buddhist Nnabuife Edward Buddhist Nnabuife [facility] UNK - Ambulatory Encounter Chuodilia Buddhist Nn[place]uife Chukwuemeka Buddhist Nnabuife [facility] UNK - Ambulatory Encounter Comfort Whiteabjaimie Whiteabuinasir [facility] COPD with exacerbation - Ambulatory Encounter Tiara Christianson MedAdherence [facility] UNK - Ambulatory Encounter Tiara Christianson MedAdherence Loly Thompson [facility] UNK - Ambulatory Encounter Tiara Christianson MedAdherence [facility] UNK - Ambulatory Encounter Edward Whiteabjaimie [facility] UNK - Ambulatory Encounter Edward Roa Nnabmelitafe [facility] UNK - Ambulatory Encounter Gill Whiteabjaimie [facility] UNK - Ambulatory Encounter Loly Thompson [facility] UNK - Ambulatory Encounter Edward Delgado LinkLogic [facility] UNK - Ambulatory Encounter Loly Winslow Donna Sabiha [facility] UNK - Ambulatory Encounter Fax Status [facility] UNK - Ambulatory Encounter Fax Status [facility] UNK - Ambulatory Encounter Fax Status [facility] UNK - Ambulatory Encounter Fax Status LinkLogic [facility] UNK - Ambulatory Encounter Fax Status [facility] UNK - Ambulatory Encounter Fax Status [facility] UNK - Ambulatory Encounter Titi Kaitlynn Titi Kaitlynn [facility] UNK - Ambulatory Encounter Titi Kaitlynn Titi Kaitlynn [facility] UNK - Ambulatory Encounter Titi Kaitlynn Titi Kaitlynn [facility] UNK - Ambulatory Encounter Lo Gu Titi Kaitlynn Titi [facility] MUSCLE SPASMEAR PAIN, RIGHTCandidal vaginitisOtitis media, acute - Ambulatory Encounter Satinder Gu [facility] Contact Center UNK - Ambulatory Encounter Fax Status Link[facility] UNK - Ambulatory Encounter Fax Status [facility] UNK - Ambulatory Encounter Fax Status [facility] UNK - Ambulatory Encounter Bhavya Palacio [facility] UNK - Ambulatory Encounter Edward Roa Nnabuife Edward Roa Nnabuife [facility] UNK - Ambulatory Encounter Satinder Roa Nnabuife Edward Roa Nnabuife Ayanna Matthews [facility] Breast abnormal findingsChronic bronchitisBMI 50.0-59.9 - Ambulatory Encounter Comfort Trevino LinkLogic [facility] UNK - Ambulatory Encounter Tiara Christianson MedAdherence [facility] UNK - Ambulatory Encounter Tiara Christianson MedAdherence LinkLogic [facility] UNK - Ambulatory Encounter Bhavya Pedersen Med[facility]herence [facility] UNK - Ambulatory Encounter Bhavya Pedersen MedAdherence [facility] UNK - Ambulatory Encounter Lo Sierra [facility] UNK - Ambulatory Encounter Lo Sierra [facility] UNK - Ambulatory Encounter Bhavya Pedersen MedAdherence Stephanie Hernandez [facility] UNK - Ambulatory Encounter Maddarryl Sierra [facility] UNK - Ambulatory Encounter Madhumitkaylin Sierra [facility] UNK - Ambulatory Encounter Madhumitkaylin Sierra [facility] UNK - Ambulatory Encounter Nupur Chong [facility] UNK - Ambulatory Encounter Nupur Chong [facility] UNK - Ambulatory Encounter Edwin Umana [facility] UNK - Ambulatory Encounter Edwin Umana [facility] UNK - Ambulatory Encounter Edwin Umana [facility] UNK - Ambulatory Encounter Comfort Gamino [facility] MORBID OBESITYOtitis media, acute - Ambulatory Encounter Fabricio Beard [facility] UNK - Ambulatory Encounter Lo Esquivel [facility] UNK - Ambulatory Encounter Lo Ma [facility] Candidal vaginitis - Ambulatory Encounter Lo Esquivel [facility] UNK - Ambulatory Encounter Breana [facility] UNK - Ambulatory Encounter Breana Rosario [facility] UNK - Ambulatory Encounter Mary Soriaillo [facility] UNK - Ambulatory Encounter Fabricio [facility] UNK - Ambulatory Encounter Bria Young [facility] - [facility] Fabricio Be[facility] UNK - Ambulatory Encounter Gita Dewey [facility] UNK - Ambulatory Encounter Comfort [facility] UNK - Ambulatory Encounter Bhavya [facility]t [facility] UN[facility] - Ambulatory Encounter Comfort Trevino [facility] UNK - Ambulatory Encounter Carmelina Gu [facility] UNK - Ambulatory Encounter Jan Johnson [facility] Strategy Analyst UNK - Ambulatory Encounter Fax Status LinkLogic [facility] UNK - Ambulatory Encounter Fax Status Link[facility]ic [facility] UNK - Ambulatory Encounter Fax Status Link[facility] UNK - Ambulatory Encounter Deniz Lira [facility] UNK - Ambulatory Encounter Bhavya Pedersen MedAdherence [facility] UNK - Ambulatory Encounter Comfort Trevino [facility] UNK - Ambulatory Encounter Comfort Trevino [facility] UNK - Ambulatory Encounter Comfort Trevino [facility] UNK - Ambulatory Encounter Fax Status Link[facility] UNK - Ambulatory Encounter Fax Status [facility] UNK - Ambulatory Encounter Comfort Trevino [facility] UNK - Ambulatory Encounter Fax Status Link[facility] UNK - Ambulatory Encounter Fax Status [facility] UNK - Ambulatory Encounter Comfort Trevino [facility] UNK - Ambulatory Encounter Comfort Trevino [facility] UNK - Ambulatory Encounter Comfort Trevino [facility] UNK - Ambulatory Encounter Comfort Trevino [facility] UNK - Ambulatory Encounter Kimberly Bermudezo MedAdherence Comfort Feldman [facility] UNK - Ambulatory Encounter Kimberly Trevino [facility] UNK - Ambulatory Encounter Tab Chang [facility] UNK - Ambulatory Encounter Fax Status [facility] UNK - Ambulatory Encounter Fax Status [facility] UNK - Ambulatory Encounter Fax Status [facility] UNK - Ambulatory Encounter Kimberly Trevino [facility] UNK - Ambulatory Encounter Comfort Trevino [facility] UNK - Ambulatory Encounter Comfort Trevino LinkLogedward Kimberly [facility] UNK - Ambulatory Encounter Fax Status [facility] UNK - Ambulatory Encounter Jenny Gaston [facility] UNK - Ambulatory Encounter Fax Status [facility] UNK - Ambulatory Encounter Fax Status [facility] UNK - Ambulatory Encounter Comfort TorresLogedward [facility] UNK - Ambulatory Encounter Kimberly Trevino [facility] UNK - Ambulatory Encounter Comfort TorresLogedward [facility] - Ambulatory Encounter Jenny Gaston [facility] UNK - Ambulatory Encounter Gosia Trevino [facility] UNK - Ambulatory Encounter Comfort TorresLogic Gosia [facility] UNK - Ambulatory Encounter Comfort Tellez [facility] CHRONIC OBSTRUCTIVE PULMONARY DISEASE, ACUTE EXACERBATIONCHFSLEEP APNEA - Ambulatory Encounter [facility] - [facility] - [facility] - [facility]ulatory Encounter [facility] - Ambulatory Encounter [facility] - Ambulatory Encounter [facility] - Ambulatory Encounter [facility] Ambulatory Encounter [facility] - Ambulatory Encounter Jenny Feldman [facility] UNK - Ambulatory Encounter Thea Caputopala Thea Caputoserenakaylin Rosalinda [facility] LOW BACK PAIN - Ambulatory Encounter Sabra [facility] UNK - Ambulatory Encounter Sabra [facility] UNK - Ambulatory Encounter Ernesto [facility] DEPENDENT EDEMA, LEGS - Ambulatory Encounter Bhavya Nuvia [facility] UNK - Ambulatory Encounter Bhavya Venturavino [facility] UNK - Ambulatory Encounter Jonelle [facility] UNK - Ambulatory Encounter Jonelle [facility] UNK - Ambulatory Encounter Jonelle [facility] UNK - Ambulatory Encounter Jonelle [facility] UNK - Ambulatory Encounter [facility] UNK - Ambulatory Encounter Malena [facility] UNK - Ambulatory Encounter Ernesto [facility] EAR PAIN, RIGHTBLURRED VISIONHEARING DEFICIT - Ambulatory Encounter Jehovah'S Witness Preload [facility] UNK - Ambulatory Encounter Jehovah'S Witness Preload [facility] UNK - Ambulatory Encounter Jehovah'S Witness Preload [facility] UNK - Ambulatory Encounter Jehovah'S Witness Preload [facility] UNK - Ambulatory Encounter Jehovah'S Witness Preload [facility] UNK - Ambulatory Encounter Jehovah'S Witness Preload [facility] UNK - Ambulatory Encounter Jehovah'S Witness Preload [facility] UNK - Ambulatory Encounter Jehovah'S Witness Preload [facility] UNK - Ambulatory Encounter Jehovah'S Witness Preload [facility] UNK - Ambulatory Encounter Jehovah'S Witness Preload [facility] UNK - Ambulatory Encounter Jehovah'S Witness Preload [facility] UNK - Ambulatory Encounter Jehovah'S Witness Preload [facility] UNK - Ambulatory Encounter Jehovah'S Witness Preload [facility] UNK - Ambulatory Encounter Jehovah'S Witness Preload [facility] UNK - Ambulatory Encounter Jehovah'S Witness Preload [facility] UNK - Ambulatory Encounter Jehovah'S Witness Preload [facility] UNK - Ambulatory Encounter Jehovah'S Witness Preload [facility] UNK - Ambulatory Encounter Jehovah'S Witness Preload [facility] UNK - Ambulatory Encounter Jehovah'S Witness Preload [facility] UNK - Ambulatory Encounter Jehovah'S Witness Preload [facility] UNK - Ambulatory Encounter Jehovah'S Witness Preload [facility] UNK - Ambulatory Encounter Jehovah'S Witness Preload [facility] UNK - Ambulatory Encounter Jehovah'S Witness Preload [facility] UNK - Ambulatory Encounter Jehovah'S Witness Preload [facility] UNK - Ambulatory Encounter Jehovah'S Witness Preload [facility] UNK - Ambulatory Encounter Jehovah'S Witness Preload [facility] UNK - Ambulatory Encounter Jehovah'S Witness Preload [facility] UNK - Ambulatory Encounter Jehovah'S Witness Preload [facility] UNK - Ambulatory Encounter Jehovah'S Witness Preload [facility] UNK - Ambulatory Encounter Jehovah'S Witness Preload [facility] UNK - Ambulatory Encounter Jehovah'S Witness Preload [facility] UNK - Ambulatory Encounter Jehovah'S Witness Preload [facility] UNK - Ambulatory Encounter Jehovah'S Witness Preload [facility] UNK - Ambulatory Encounter Jehovah'S Witness Preload [facility] UNK - Ambulatory Encounter Jehovah'S Witness Preload [facility] UNK - Ambulatory Encounter Jehovah'S Witness Preload [facility] UNK - Ambulatory Encounter Jehovah'S Witness Preload [facility] UNK - Ambulatory Encounter Jehovah'S Witness Preload [facility] UNK - Ambulatory Encounter Jehovah'S Witness Preload [facility] UNK - Ambulatory Encounter Jehovah'S Witness Preload [facility] UNK - Ambulatory Encounter Jehovah'S Witness Preload [facility] UNK - Ambulatory Encounter Jehovah'S Witness Preload [facility] UNK - Ambulatory Encounter Jehovah'S Witness Preload [facility] UNK - Ambulatory Encounter Jehovah'S Witness Preload [facility] UNK - Ambulatory Encounter Jehovah'S Witness Preload [facility] UNK - Ambulatory Encounter Jehovah'S Witness Preload [facility] UNK - Ambulatory Encounter Jehovah'S Witness Preload [facility] UNK - Ambulatory Encounter Jehovah'S Witness Preload [facility] UNK - Ambulatory Encounter Jehovah'S Witness Preload [facility] UNK - Ambulatory Encounter Jehovah'S Witness Preload [facility] UNK - Ambulatory Encounter Jehovah'S Witness Preload [facility] UNK - Ambulatory Encounter Jehovah'S Witness Preload [facility] UNK - Ambulatory Encounter Jehovah'S Witness Preload [facility] UNK - Ambulatory Encounter Jehovah'S Witness Preload [facility] UNK - Ambulatory Encounter Jehovah'S Witness Preload [facility] UNK - Ambulatory Encounter Jehovah'S Witness Preload [facility] UNK - Ambulatory Encounter Jehovah'S Witness Preload [facility] UNK - Ambulatory Encounter Jehovah'S Witness Preload [facility] UNK - Ambulatory Encounter Jehovah'S Witness Preload [facility] UNK - Ambulatory Encounter Jehovah'S Witness Preload [facility] UNK - Ambulatory Encounter Jehovah'S Witness Preload [facility] UNK - Ambulatory Encounter Jehovah'S Witness Preload [facility] UNK - Ambulatory Encounter Jehovah'S Witness Preload [facility] UNK - Ambulatory Encounter Jehovah'S Witness Preload [facility] UNK - Ambulatory Encounter Jehovah'S Witness Preload [facility] UNK - Ambulatory Encounter Jehovah'S Witness Preload [facility] UNK - Ambulatory Encounter Jehovah'S Witness Preload [facility] UNK - Ambulatory Encounter Jehovah'S Witness Preload [facility] UNK - Ambulatory Encounter Sharpetaniya Sharpe Vo [facility] UNK - Ambulatory Encounter Jehovah'S Witness Preload [facility] UNK - Ambulatory Encounter Jehovah'S Witness Preload [facility] UNK - Ambulatory Encounter Jehovah'S Witness Preload [facility] UNK - Ambulatory Encounter Jehovah'S Witness Preload [facility] UNK - Ambulatory Encounter Jehovah'S Witness Preload [facility] UNK - Ambulatory Encounter Jehovah'S Witness Preload [facility] UNK - Ambulatory Encounter Jehovah'S Witness Preload [facility] UNK - Ambulatory Encounter Jehovah'S Witness Preload [facility] UNK - Ambulatory Encounter Jehovah'S Witness Preload [facility] UNK - Ambulatory Encounter Jehovah'S Witness Preload [facility] UNK - Ambulatory Encounter Jehovah'S Witness Preload [facility] UNK - Ambulatory Encounter Jehovah'S Witness Preload [facility] UNK - Ambulatory Encounter Jehovah'S Witness Preload [facility] UNK - Ambulatory Encounter Jehovah'S Witness Preload [facility] UNK - Ambulatory Encounter Jehovah'S Witness Preload [facility] UNK - Ambulatory Encounter Jehovah'S Witness Preload [facility] UNK - Ambulatory Encounter Jehovah'S Witness Preload [facility] UNK - Ambulatory Encounter Jehovah'S Witness Preload [facility] UNK - Ambulatory Encounter Jehovah'S Witness Preload [facility] UNK - Ambulatory Encounter Jehovah'S Witness Preload [facility] UNK - Ambulatory Encounter Jehovah'S Witness Preload [facility] UNK - Ambulatory Encounter Jehovah'S Witness Preload [facility] UNK - Ambulatory Encounter Jehovah'S Witness Preload [facility] UNK - Ambulatory Encounter Jehovah'S Witness Preload [facility] UNK - Ambulatory Encounter Jehovah'S Witness Preload [facility] UNK - Ambulatory Encounter Jehovah'S Witness Preload [facility] UNK - Ambulatory Encounter Jehovah'S Witness Preload [facility] UNK - Ambulatory Encounter Jehovah'S Witness Preload [facility] UNK - Ambulatory Encounter Jehovah'S Witness Preload [facility] UNK - Ambulatory Encounter Jehovah'S Witness Preload [facility] UNK - Ambulatory Encounter Jehovah'S Witness Preload [facility] UNK - Ambulatory Encounter Jehovah'S Witness Preload [facility] UNK - Ambulatory Encounter Jehovah'S Witness Preload [facility] UNK - Ambulatory Encounter Jehovah'S Witness Preload [facility] UNK - Ambulatory Encounter Jehovah'S Witness Preload [facility] UNK - Ambulatory Encounter Jehovah'S Witness [facility]reload [facility] - [facility] Encounter Jehovah'S Witness [facility]reload [facility] - Ambulatory Encounter Jehovah'S Witness Preload [facility] UN[facility] - Ambulatory Encounter Jehovah'S Witness Preload [facility] - Ambulatory Encounter Jehovah'S Witness Preload [facility] UNK - Ambulatory Encounter Jehovah'S Witness Preload [facility] UNK - Ambulatory Encounter [facility] - Ambulatory Encounter Annemarie [facility] UNK - Ambulatory Encounter Gill Villafuerte [facility] Annemarie [facility] UNK - Ambulatory Encounter Gill Villafuerte Colleen Pace Annemarie Batistaen [facility] UNK - Ambulatory Encounter Gill Dalton [facility] UNK - Ambulatory Encounter Annemarie Pedersen MedAdherence K[facility] UNK - Ambulatory Encounter Gill Villafuerte [facility] UNK - Ambulatory Encounter Gill Batistaen [facility] COPDNICOTINE ADDICTIONSARCOIDOSISHYPERTENSIONMUSCLE SPASM - Ambulatory Encounter Ernesto Garcia [facility] UNK VITAL SIGNS No Information Available ALLERGIES [...] of total hemoglobin 7.3 % Edward Roa Nnabuinasir hepatitis B surface antigen Negative LinkLogic Negative [...] 3.4-10.8 High blood glucose, random 256 mg/dL [facility] " hemoglobin A1C, blood, as % of total hemoglobin 8.3 % [facility] hematoc[facility], blood 37.6 % Kayla Lipscomb " hemoglobin, blood 11.0 g/dL Kayla Lipscomb " leukocyte count, blood 9.9 10*3/mm3 Kayla Lipscomb " Estimated Glomerular Filtration Rate (calc) 90 mL/min/((173/100).m2) Kayla Lipscomb " creatinine, serum 0.80 mg/dL Kayla Lipscomb " urea nitrogen, blood 12 mg/dL Kayla Lipscomb " potassium, serum 3.6 mmol/L Kayla Lipscomb " sodium, serum 137 mmol/L Kayla Lipscomb blood glucose, random 289 mg/dL Violette Yuri blood glucose, random 180 mg/dL Priya Mars [...] EXTENDED RELEASE 1 by mouth every day Abisai Crispin Delgado TRAMADOL HCL 50 MG ORAL TABLET 1-2 tablets by mouth 4 times a day as needed for pain Edward Delgado NAPROXEN 500 MG ORAL TABLET 1 by mouth twice a day as needed for pain and inflammation Abisai Crispin Delgado DEBROX 6.5 % OTIC SOLUTION apply 10 drops in each ear Twice a Day Gautamallan Crispin Delgado NEBULIZER Please use as indicated Abisai Crispin Delgado METFORMIN HCL 1000 MG TABS TAKE 1 TABLET BY MOUTH TWICE DAILY Tiara Christianson [facility] MUCINEX 600 MG ORAL TABLET EXTENDED RELEASE 12 HOUR take 1 tablet twice a day Edward Delgado TESSALON PERLES 100 MG ORAL CAPSULE 1 by mouth 3 times a day as needed for cough Abisai Crispin Delgado CONTRAVE 8-90 MG ORAL TABLET EXTENDED RELEASE 12 HOUR 1 tab in the am x 1 week, then 1 tab Twice a Day x 1 week , then 2 tab in the am and 1 tab in the pm x1 week, then 2 tab twice a day Edward Delgado METFORMIN 500MG TAB TAKE 1 TABLET BY MOUTH ONCE DAILY Bhavya CisnerosAdherorange city [facility] health system FREESTYLE LANCETS Use as directed to test blood sugar once daily Bhavya Pedersen [facility] ICD CODE E11.9 FREESTYLE LITE TEST IN VITRO STRIP Use as directed to test blood sugar once daily [facility] BlayneAdherorange city [facility] ICD CODE E11.9 FREESTYLE FREEDOM LITE W/DEVICE KIT Use as directed to test blood sugar once daily [facility]ya [facility] AreaAdher[facility] ICD CODE E11.9 BD ULTRA-FINE MICRO PEN NEEDLE 32G X 6 MM use as instructed with kwik pen Edward Delgado PANTOPRAZOLE SOD 40MG TAB TAKE 1 TABLET BY MOUTH ONCE DAILY Tiara [email or web address] city area health system HUMALOG MIX 75/25 KWIKPEN (75-25) 100 UNIT/ML SUBCUTANEOUS SUSPENSION PEN-INJECT INJECT 50 UNITS SUB-Q 15 MINUTES BEFORE BREAKFAST AND 26 UNITS 15 MINUTES BEFORE DINNER DAILY Katy Valdez, AZITHROMYCIN 250 MG ORAL TABLET 2 tablets by mouth on day one then one tablet by mouth each day for a total of 5 days Edward Delgado CHEST CONGESTION RELIEF 400 MG ORAL TABLET take every 4 hours as needed for cough and congestion. - Edward Boyceuinasir DOXYCYCLINE HYCLATE 100 MG ORAL CAPSULE 1 by mouth twice a day - Edward Delgado RELION INSULIN SYRINGE 31G X 15/64" 1 ML Use Three Times a Day to administer insulin [email or web address] [email or web address] Updated directions IPRATROPIUM/ ALBUTER EMI USE 1 AMPULE IN NEBULIZER EVERY 4 HOURS NEEDED FOR WHEEZING [email or web address] [email or web address] AZITHROMYCIN 250 MG ORAL TABLET 2 tablets [...] 1 nebs q4hr As Needed - Titi Calderón XOPENEX HFA 45 MCG/ACT INHALATION AEROSOL 1 puff Every Four hr As Needed Annemarie Gaffney TORSEMIDE 20 MG ORAL TABLET take 2 tablets daily Abisaijose j Roa Nnabuife CYCLOBENZAPRINE HCL 10 MG ORAL TABLET take 1 By Mouth Three Times a Day As Needed - Titicleveland Calderón ADVAIR DISKUS 250-50 MCG/DOSE INHALATION AEROSOL POWDER BREATH ACTIVATED 1 puff BID - Annemarie Gaffney LISINOPRIL-HYDROCHLOROTHIAZIDE 10-12.5 MG ORAL TABLET take 1 By Mouth daily - Edward Roa Nnabuinasir PREDNISONE 20MG TAB TAKE 1 TABLET BY MOUTH ONCE DAILY Edward Whiteabuife PROVENTIL HFA 108 (90 Base) MCG/ACT INHALATION AEROSOL SOLUTION 2 puffs every 4 hours as needed - Comfort Trevino ADVAIR DISKUS 250-50 MCG/DOSE INHALATION AEROSOL POWDER BREATH ACTIVATED take 1 puff Twice a Day - Annemarie Gaffney SOCIAL HISTORY Date Observation Value Provider social history E&M Single. Not homeless. Born [place] [email or web address] City: [facility]. State: [place]. Not employed. Retired. Highest education level: high school graduate. Gender of partner(s): male. Francesca Diana " social history reviewed E&M reviewed today Francesca Diana " assessment of health literacy ([facility] 2014 Standards, 3C10) Adequate Francesca Diana " passive cigarette smoke exposure Yes Francesca Diana " smoking status former smoker Francesca Diana " Exercise Program Referral T Francesca Diana " Weight Management Counseling Provided T Francesca Diana " Nutrition intervention T Francesca Diana Exercise Program Referral T Satinder Harman " Weight Management Counseling Provided Miguel A Harman " Nutrition intervention Miguel A Harman drug use, illicit Never Nupur Chong " alcohol use Currently Nupur Chong " social history E&M Single. Not homeless. Born in [facility] [[email or web address] City: [facility]. State: [place]. Not employed. Retired. Highest education level: high school graduate. Gender of partner(s): male. Nupur Chong " social history reviewed E&M reviewed today Nupur Chong " assessment of health literacy ([facility] 2014 Standards, 3C10) Adequate Nupur Chong " passive cigarette smoke exposure Yes Nupur Chong " smoking status former smoker Nupur Chong time of call 04/02/2019 8:30 AM Daphney Espitia drug use, illicit Never Stephanie Chalo " alcohol use Currently Stephanie Chalo " social history E&M Single. Not homeless. Born in [facility] [[email or web address] City: [facility]. State[place]. Not employed. Retired. Highest education level: high school graduate. Gender of partner(s): male. Stephanie Isabel " social history reviewed E&M reviewed today Stephanie Isabel " assessment of health literacy ([facility] 2014 Standards, 3C10) Adequate Stephanie Chalo " passive cigarette smoke exposure Yes Stephanie Chalo " smoking status former smoker Stephanie Isabel " Exercise Program Referral T Stephanie Chalo " Weight Management Counseling Provided T Stephanie Isabel " Nutrition intervention T Stephanie Isabel sunscreen use No [place] Buddhist Nnabuife " Exercise Program Referral T Edward Roa Nnabuife " Weight Management Counseling Provided T Edward Buddhist Nnabuife " Nutrition intervention T Edward Buddhist Nnabuife " drug use, illicit Never Nupur Chong " alcohol use Currently Nupur Chong " social history E&M Single. Not homeless. Born in [facility] [[email or web address] City: [facility]. State: [place]. Not employed. Retired. Highest education level: high school graduate. Gender of partner(s): male. Nupur Chong " social history reviewed E&M reviewed today Nupur Chong " assessment of health literacy ([facility] 2014 Standards, 3C10) Adequate Nupur Chong " [...] history E&M Single. Not homeless. Born in [facility] [[email or web address] City: [facility]. State: [place]. Not employed. Retired. Highest education level: high school graduate. Gender of partner(s): male. Nupur Chong " social history reviewed E&M reviewed today Nupur Chong " assessment of health literacy ([facility] 2014 Standards, 3C10) Adequate Nupur Chong " passive cigarette smoke exposure No Nupur Chong " smoking status former smoker Nupur Chong time of call 11/21/2018 9:45 AM Joaquim Engel drug use, illicit Never Stephanie Chalo " alcohol use Currently Stephanie Chalo " social history E&M Single. Not homeless. Born in [facility] [[email or web address] City: [facility]. State: [place]. Not employed. Retired. Highest education level: high school graduate. Gender of partner(s): male. Stephanie Isabel " social history reviewed E&M reviewed today Stephanie Chalo " assessment of health literacy ([facility] 2014 Standards, 3C10) Adequate Stephanie Chalo " is there any chance that you could be ? No Stephanie Chalo " passive cigarette smoke exposure No Stephanie Chalo " smoking status former smoker Stephanie Chalo " Exercise Program Referral T Stephanie Isabel " Weight Management Counseling Provided T Stephanie Isabel " Nutrition intervention T Stephanie Isabel time of call 08/07/2018 1:51 PM Clementine Velasquez drug use, illicit Never Hafsa Will " alcohol use Currently Hafsa Will " social history E&M Single. Not homeless. Born in [facility] [[email or web address] City: [facility]. State: [place]. Not employed. Retired. Highest education level: high school graduate. Gender of partner(s): male. Hafsa Will " social history reviewed E&M reviewed today Hafsa Will " assessment of health literacy ([facility] 2014 Standards, 3C10) Adequate Hafsa Will " passive cigarette smoke exposure No Hafsa Will " smoking status former smoker Hafsa Will " Exercise Program Referral T Hafsa Will " Weight Management Counseling Provided T Hafsa Will " Nutrition intervention T Hafsa Will drug use, illicit Never Violette Pool " alcohol use Currently Violette Pool " social history E&M Single. Not homeless. Born in [facility] [[email or web address] City: [facility]. State: [place]. Not employed. Retired. Highest education level: high school graduate. Gender of partner(s): male. Violette Pool " social history reviewed E&M reviewed today Violette Pool " assessment of health literacy ([facility] 2014 Standards, 3C10) Adequate Violette Pool " passive cigarette smoke exposure No Violette Pool " smoking status former smoker Violetet Pool alcohol use Currently Hafsa Will " drug use, illicit Never Hafsa Will " social history E&M Single. Not homeless. Born in [facility] [[email or web address] City: [facility]. State: [place]. Not employed. Retired. Highest education level: high school graduate. Gender of partner(s): male. Hafsa Will " social history reviewed E&M reviewed today Hafsa Will " assessment of health literacy ([facility] 2014 Standards, 3C10) Adequate Hafsa Will " passive cigarette smoke exposure No Hafsa Will " smoking status former smoker Hafsa Will " Exercise Program Referral T Hafsa Will " Weight Management Counseling Provided T Hafsa Will " Nutrition intervention T Hafsa Will drug use, illicit Never Priya Jerad " alcohol use Currently Priya Jerad " social history E&M Single. Not homeless. Born in [facility] [[email or web address] City: [facility]. State: [place]. Not employed. Retired. Highest education level: high school graduate. Gender of partner(s): male. Priya Jerad " social history reviewed E&M reviewed today Priya Jerad " assessment of health literacy ([facility] 2014 Standards, 3C10) Adequate Priya Jerad " [...] Raysa Potts Exercise Program Referral T Edward Boyceuinasir " Weight Management Counseling Provided T Edward Buddhist Nnabuife " Nutrition intervention T Edward Buddhist Nnabuife " social history E&M Single. Not homeless. Born in [facility] [[email or web address] City: [facility]. State: [place]. Not employed. Retired. Highest education level: high school graduate. Gender of partner(s): male. Alayna Hcapman " social history reviewed E&M reviewed today Alayna Chapman " assessment of health literacy ([facility] 2014 Standards, 3C10) Adequate Alayna Chapman " passive cigarette smoke exposure Yes Alayna Chapman " smoking status former smoker Alayna Chapman time of call 04/24/2018 11:41 AM Gayle Serrano drug use, illicit Never Stephanie Isabel " alcohol use Currently Stephanie Isabel " social history E&M Single. Not homeless. Born in [facility] [[email or web address] City: [facility]. State: [place]. Not employed. Retired. Highest education level: high school graduate. Gender of partner(s): male. Stephanie Isabel " social history reviewed E&M reviewed today Stephanie Isabel " assessment of health literacy ([facility] 2014 Standards, 3C10) Adequate Stephanie Chalo " passive cigarette smoke exposure Yes Stephanie Chalo " smoking status former smoker Stephanie Isabel " Exercise Program Referral T Stephanie Chalo " Weight Management Counseling Provided T Stephanie Chalo " Nutrition intervention T Stephanie Isabel time of call 04/05/2018 10:07 AM Alayna Gu drug use, illicit Never Alayna Chapman " alcohol use Currently Alayna Chapman " social history E&M Single. Not homeless. Born in [facility] [[email or web address] City: [facility]. State: [place]. Not employed. Retired. Highest education level: high school graduate. Gender of partner(s): male. Alayna Chapman " social history reviewed E&M reviewed today Alayna Chapman " assessment of health literacy ([facility] 2014 Standards, 3C10) Adequate Alayna Chapman " passive cigarette smoke exposure No Alayna Chapman " smoking status former smoker Alayna Chapman " Exercise Program Referral T Alayna Chapman " Weight Management Counseling Provided T Alayna Chapman " Nutrition intervention T Alayna Chapman Exercise Program Referral T Edward Delgado " Weight Management Counseling Provided T Edward Delgado " Nutrition intervention T Opalfabiánkathya Magañaian Danny " alcohol use Currently Alayna Chapman " social history E&M Single. Not homeless. Born in [facility] [[email or web address] City: [facility]. State: [place]. Not employed. Retired. Highest education level: high school graduate. Gender of partner(s): male. Alayna Chapman " social history reviewed E&M reviewed today Alayna Chapman " assessment of health literacy ([facility] 2014 Standards, 3C10) Adequate Alayna Chapman " passive cigarette smoke exposure No Alayna Chapman " smoking status former smoker Alayna Chapman " assessment of health literacy ([facility] 2014 Standards, 3C10) Adequate Alayna Chapman " drug use, illicit Never Alayna Krausa " alcohol use Currently Alayna Chapman " social history E&M Single. Not homeless. Born in [facility] [[email or web address] City: [facility]. [place] Not [place]. Retired. Highest education level: high [...] history E&M Single. Not homeless. Born in [facility] [[email or web address] City: [facility]. [place] Not employed. Retired. Highest education level: high [...] history E&M Single. Not homeless. Born in [facility] [[email or web address] City: [facility]. [place]: [place] Not employed. Retired. Highest education level: high [...] Ana M Palacio Exercise Program Referral T Opallinda Crispin Boyceuife " Weight Management Counseling Provided T Abisaijose j Crispin Whiteabuife " Nutrition intervention T Abisaijose j Crispin Whiteabuife " social history E&M Single. Not homeless. Born in [facility] [[email or web address] City: [facility]. [place] employed. Retired. Highest education level: high school graduate. Gender of partner(s): male. Edward Roa Danny " social history reviewed E&M reviewed today Jamarodilia Buddhist Austenuinasir " drug use, illicit Never Nupur Chong " alcohol use Currently Nupur Chong " passive cigarette smoke exposure Yes Nupur Chong " smoking status former smoker Nupur Chong time of call 09/02/2017 9:48 AM [facility] use No Edward Roa Cindyabuife " social history E&M Single. Not homeless. Born in [facility] [[email or web address] City: [facility]. [place] Not employed. Retired. Highest education level: high school graduate. Gender of partner(s): male. Edward Buddhist Danny " social history reviewed E&M reviewed today Jamarodilia Crispin Delgado " passive cigarette smoke exposure Yes Taina Riccardo " smoking status former smoker Taina Gu time of call 08/11/2017 8:56 AM [facility] Program Referral T Titicleveland Calderón " Weight Management Counseling Provided T Titi Calderón " Nutrition intervention T Titicleveland Sommermi " passive cigarette smoke exposure No Taina Gu " smoking status former smoker Taina Gu time of call 07/21/2017 4:25 PM Alayna Gu social history E&M Single. Not homeless. Born in [facility] [[email or web address] City: [facility]. State: [place] Not employed. Retired. Highest education level: high school graduate. Gender of partner(s): male. Edward Delgado " social history reviewed E&M reviewed today Abisaijose j Crispin Delgado " Exercise Program Referral T Edward Delgado " Weight Management Counseling Provided T Edward Delgado " Nutrition intervention Miguel A Delgado time of call 07/08/2017 10:03 AM Ana [...] history E&M Single. Not homeless. Born in [facility] [[email or web address] City: [facility]. [place]: [place] Not employed. Retired. Highest education level: high [...] history E&M Single. Not homeless. Born in [facility] [[email or web address] City: [facility]. [place]: [place] Not employed. Retired. Highest education level: high school graduate. Gender of partner(s): male. Honey Harringtonoy " drug use, illicit Never Honeytejas Gutierrez " alcohol use Never Honeytejas Gutierrez " Occupation #1 Retired Honey Gutierrez " patient considered to be homeless No Honey Gutierrez " passive cigarette smoke exposure Yes Honey Gutierrez " cigarettes, number smoked per day 1 pack Honey Gutierrez " smoking status current every day smoker Honey Gutierrez FUNCTIONAL STATUS Date Observation Value Provider total score, Activities of Daily Living (ADL) Independent Edward Delgado Activities of Daily Living (ADLs, IADLs, etc.) Decrease in ADL Edward Delgado MENTAL STATUS Date Observation Value Provider assessment of judgment and insight E&M intact Edward Delgado " mental status examination: orientation E&M oriented to time, place, and person Edward Delgado " assessment of mood and affect E&M no depression, anxiety, or agitation Edward Delgado " Generalized Anxiety Disorder Questionnaire - Question 2 0 Francesca Diana " Generalized Anxiety Disorder Questionnaire - Question 1 0 Francesca Diana assessment of judgment and insight E&M intact [place]wu[place]a Buddhist Nnabuife " assessment of mood and affect E&M no depression, anxiety, or agitation [facility] " mental status examination: orientation E&M oriented to time, place, and person [facility] " Generalized Anxiety Disorder Questionnaire - Question 2 0 Nupur Chong " Generalized Anxiety Disorder Questionnaire - Question 1 0 Nupur Chong assessment of judgment and insight E&M intact [facility] Nnabuife " mental status examination: orientation E&M oriented to time, place, and person [facility] " assessment of mood and affect E&M no depression, anxiety, or agitation [facility] Nnabuife " Generalized Anxiety Disorder Questionnaire - Question 2 0 Stephanie Isabel " Generalized Anxiety Disorder Questionnaire - Question 1 0 Stephanie Isabel assessment of judgment and insight E&M intact [facility] Nnabui " mental status examination: orientation E&M oriented to time, place, and person [facility] Nnabuife " assessment of mood and affect E&M anxious, depressed mood [facility] Nnabui " Generalized Anxiety Disorder Questionnaire - Question 2 0 Nupur Chong " Generalized Anxiety Disorder Questionnaire - Question 1 0 Nupur Chong assessment of judgment and insight E&M intact Satinder Harman " mental status examination: orientation E&M oriented to time, place, and person Satinder Harman " assessment of mood and affect E&M anxious, depressed mood Satinder Harman " Generalized Anxiety Disorder Questionnaire - Question 2 0 Nupur Chong " Generalized Anxiety Disorder Questionnaire - Question 1 0 Nupur Chong assessment of judgment and insight E&M intact [facility] " mental status examination: orientation E&M oriented to time, place, and person [facility] Nnabuife " assessment of mood and affect E&M anxious, depressed mood [facility] N[facility]ui " Generalized Anxiety Disorder Questionnaire - Question 2 0 Stephanie Isabel " Generalized Anxiety Disorder Questionnaire - Question 1 0 Stephanie Isabel assessment of judgment and insight E&M intact [facility] " mental status examination: orientation E&M oriented to time, place, and person [facility] " assessment of mood and affect E&M anxious, depressed mood Edward Boyceui mental status examination: orientation E&M alert and oriented Tiny Vazquezgrace Mckeon " assessment of mood and affect E&M normal affect Tiny Mckeon Generalized Anxiety Disorder Questionnaire - Question 2 0 Hafsa Will " Generalized Anxiety Disorder Questionnaire - Question 1 0 Hafsa Will Generalized Anxiety Disorder Questionnaire - Question 2 0 Violette Welch " Generalized Anxiety Disorder Questionnaire - Question 1 0 Violette Welch assessment of judgment and insight E&M intact Edward [facility] " mental status examination: orientation E&M oriented to time, place, and person [facility] Roa [facility] " assessment of mood and affect E&M anxious, depressed mood Edward Fraga assessment of judgment and insight E&M intact Edward [facility] " mental status examination: orientation E&M oriented to time, place, and person [facility] Buddhist [facility] " assessment of mood and affect E&M anxious, depressed mood [facility] " Generalized Anxiety Disorder Questionnaire - Question 2 0 Priya Mars " Generalized Anxiety Disorder Questionnaire - Question 1 0 Priya Mars assessment of judgment and insight E&M intact Edward [facility] " mental status examination: orientation E&M oriented to time, place, and person [facility] " assessment of mood and affect E&M anxious, depressed mood [facility] " Generalized Anxiety Disorder Questionnaire - Question 2 0 Alayna Chapman " Generalized Anxiety Disorder Questionnaire - Question 1 0 Alayna Chapman assessment of judgment and insight E&M intact Edward Buddhist [facility] " mental status examination: orientation E&M oriented to time, place, and person [facility] " assessment of mood and affect E&M anxious, depressed mood [facility] " Generalized Anxiety Disorder Questionnaire - Question 2 0 Stephanie Chalo " Generalized Anxiety Disorder Questionnaire - Question 1 0 Stephanie Isabel assessment of judgment and insight E&M intact Edward [facility] " mental status examination: orientation E&M oriented to time, place, and person [facility] " assessment of mood and affect E&M anxious, depressed mood [facility] " Generalized Anxiety Disorder Questionnaire - Question 2 0 Alayna Chapman " Generalized Anxiety Disorder Questionnaire - Question 1 0 Alayna Chapman assessment of judgment and insight E&M intact [facility] " mental status examination: orientation E&M oriented to time, place, and person [facility] " assessment of mood and affect E&M anxious, depressed mood [facility] " Generalized Anxiety Disorder Questionnaire - Question 2 0 Alayna Chapman " Generalized Anxiety Disorder Questionnaire - Question 1 0 Alayna Chapman assessment of judgment and insight E&M intact Edward [facility] " mental status examination: orientation E&M oriented to time, place, and person [facility] " assessment of mood and affect E&M anxious, depressed mood [facility] " Generalized Anxiety Disorder Questionnaire - Question [...] process able to abstract, goal-directed, logical Toma Mcclellandez " mental status assessment, sensorium alert, attentive, [...] neat Toma Woods " delusion No Toma Mcclellandez " hallucinations none Toma Mcclellandez assessment of mood and affect E&M anxious, depressed mood [facility] " assessment of judgment and insight E&M intact [facility] " mental status examination: orientation E&M oriented to time, place, and person [facility] " If any problems checked, how difficult [...] assessment of judgment and insight E&M intact [facility] " mental status examination: orientation E&M oriented to time, place, and person [facility] " assessment of mood and affect E&M no depression, anxiety, or agitation [facility] " Generalized Anxiety Disorder Questionnaire - Question 2 0 Stephanie Isabel " Generalized Anxiety Disorder Questionnaire - Question 1 0 Stephanie Isabel Generalized Anxiety Disorder Questionnaire - Question 2 0 Nupur Castillo " Generalized Anxiety Disorder Questionnaire - Question 1 0 Nupur Chong mental status examination: recall E&M intact for recent and remote events [facility] " assessment of judgment and insight E&M intact [facility] " mental status examination: orientation E&M oriented to time, place, and person [facility] " assessment of mood and affect E&M no depression, anxiety, or agitation [facility] " Generalized Anxiety Disorder Questionnaire - Question [...] E&M intact for recent and remote events [facility] " mental status examination: orientation E&M oriented to time, place, and person [facility] " assessment of judgment and insight E&M intact [facility] " assessment of mood and affect E&M no depression, anxiety, or agitation [facility] " Generalized Anxiety Disorder Questionnaire - Question [...] Disorder Questionnaire - Question 7 3 Francesca Hammondsierrez " Generalized Anxiety Disorder Questionnaire - Question 6 3 Francesca Gamino " Generalized Anxiety Disorder Questionnaire - Question 5 0 Francesca Gamino " Generalized Anxiety Disorder Questionnaire - Question 4 3 Francesca Gamino " Generalized Anxiety Disorder Questionnaire - Question 3 0 Francesca Hammondsierrez " Generalized Anxiety Disorder Questionnaire - Question 2 0 Francesca Hammondsierrez " Generalized Anxiety Disorder Questionnaire - Question 1 3 Francesca Hammondsierrez Generalized Anxiety Disorder Questionnaire - Question 2 [...] / Coverage type Covered constitution party ID [place] Medicare HMO Medicare HMO [id number] ADVANCE DIRECTIVES No Information Available TREATMENT PLAN [...] - - - - - - - Finger Stick Glucose Est Patient Exp Problem - 14073 Est Patient Exp Problem - 62539 Est Patient Detailed - 98630 New Patient Intermediate Opth - 78746 Finger Stick Glucose Ear Irrigation Est Patient Exp Problem - 47569 Est Patient Exp Problem - 92603 Retinal Screening Est Patient Well Exam (40 - 64 Yrs) - 88038 Est Patient Detailed - 71066 Est Patient Exp Problem - 26605 Est Patient Exp Problem - 20226 New Patient Comprehensive - 18185 Glucose Stick Est Patient Exp Problem - 53659 Glucose Stick Est Patient Exp Problem - 86386 Prescription Assistance (Non-HIV) Glucose Stick Est Patient Exp Problem - 82620 Endocrinology - Adult - [facility] HEMOGLOBIN A1C - In House Est Patient Exp Problem - 43578 Est Patient Detailed - 68862 Est Patient Exp Problem - 64697 Est Patient Detailed - 50563 [facility] Assessment - [facility] Diagnostic evaluation (no medical) - 70318 [facility] Assessment (IB[facility]) Est Patient Exp Problem - 71401 Est Patient Detailed - 97992 Ofc Vst, Est Level V Est Patient Exp Problem - 86628 Est Patient Exp Problem - 53679 Ofc Vst, Est Level IV Est Patient Exp Problem - 72566 Ofc Vst, Est Level V Est Patient Exp Problem - 76836 Est Patient Detailed - 50379 Est Patient Detailed - 13373 ALBUTEROL INHAL ADMIN THRU DME 1MG Est Patient Detailed - 02135 Est Patient Exp Problem - 91602 Est Patient Exp Problem - 07598 Ear Irrigation Est Patient Exp Problem - 78219 Ofc Vst, Est Level III Est Patient Exp Problem - 07273 HISTORY OF PROCEDURES Procedure Date Procedure Name Provider Procedure Notes Status Finger Stick Glucose Gill Villafuerte completed New Patient Intermediate Opt - 73779 Satinder Harman completed Finger Stick Glucose Satinder Harman completed Ear Irrigation Satinder Harman completed Glucose Stick Gill Villafuerte completed Glucose Stick Satinder Harman completed Glucose Stick Gill Villafuerte completed HEMOGLOBIN A1C - In House Comfort Trevino completed [facility] Assessment - Weather Anchor Toma Woods completed Diagnostic evaluation (no medical) - 09468 Toma Woods completed ALBUTEROL INHAL ADMIN THRU DME 1MG Deniz Brown completed Ear Irrigation Thea Junior completed GOALS No Information Available HEALTH CONCERNS No Information Available
--- OUTSIDE RECORDS SUMMARY | 2019-09-25 17:38 | XMS REPORT ---
Author Author Admin, [place] Organization Unknown Address Unknown Phone Unavailable PROBLEMS Condition Status Date Provider Notes Hypokalemia, mild active Edward Magañaian Nnabuife Chronic pain syndrome active Edward Roa Nnabuife Cerumen impaction, bilateral active Edward Magañaian N[place]uife Well woman exam active Edward Magañaian N[place] BMI 50.0-59.9 active Edward Orthodox N[place] BMI 60.0-69.9, adult completed - Edward [...] active Edward Delgado Depression, major active Edward Whiteabuife COPD with exacerbation active Edward Whiteabuife BMI 50.0-59.9 completed - Tiny Mckeon Chronic bronchitis active Edward Delgado Breast abnormal findings active Edward Whiteabuife Otitis media, acute completed - Titi Kaitlynn MORBID OBESITY active Edwin Umana Candidal vaginitis [...] SARCOIDOSIS active Gill Villafuerte NICOTINE ADDICTION active Sharpe Vo COPD active Sharpetaniya Gaffney ENCOUNTERS Date Type Provider Location Encounter Diagnosis - Ambulatory Encounter Edward Whiteabjaimie Roa Nnabuife [facility] - Ambulatory Encounter Edward Whiteabuinasir Roa Nnabuife [facility] - Ambulatory Encounter Gill Villafuerte Jonelle Brown Edward Whiteabjaimie Roa Nnabuinasir Francesca Ernesto Diana [facility] UNK - Ambulatory Encounter Comfort Ellsworth MedAdherence, [facility] UNK - Ambulatory Encounter Comfort Marroquin MedAdherence, [facility] UNK - Ambulatory Encounter Edward Whiteabuinasir [facility] - Ambulatory Encounter Comfort Hernandez MedAdherence [facility] UNK - Ambulatory Encounter F[facility] - [facility]ulatory Encounter F[facility] Status [facility] UNK - Ambulatory Encounter Fax Status [facility] UNK - Ambulatory Encounter Edward Whiteabuinasir Roa Nnabuife [facility] - Ambulatory Encounter Satinder Whiteabuife Edward Roa Nnabuife [facility] Hypokalemia, mild - Ambulatory Encounter Edward Roa Nnabuife Gautamwlinda Roa Nnabuife [facility] UNK - Ambulatory Encounter LSJ Lab Support Desktop LinkLogic Edward Whiteabuinasir Roa Nnabuife [facility] UNK - Ambulatory Encounter Fax Status [facility] UNK - Ambulatory Encounter F[facility] - Ambulatory Encounter Fax Status [facility] - [facility]ulatory Encounter Fax Status Link[facility] UNK - Ambulatory Encounter Chukwfabiánmejose j Orthodox Nnabuife Chukwuemeka Orthodox Nnabuife [facility] UNK - Ambulatory Encounter Chukwfabiánmejose j Orthodox Nnabuife Chukwuemeka Orthodox Nnabuife [facility] UNK - Ambulatory Encounter Chukwlinda Orthodox Nnabuife Chukwuemeka Orthodox Nnabuife [facility] UNK - Ambulatory Encounter Satinder Leon Orthodox Nnabuife Jamarkwfabiánmejose j Orthodox Nnabuife Sheryl Odonnell [facility] UNK - Ambulatory Encounter Comfort Pedersen MedAdherence [facility] UNK - Ambulatory Encounter Comfort Christianson MedAdherence [facility] UNK - Ambulatory Encounter Tiara Christianson MedAdherence [facility] UNK - Ambulatory Encounter Edward Orthodox Nnabuife Chukwfabiánmejose j Orthodox Nnabuife LinkLogic [facility] UNK - Ambulatory Encounter Osiris Gordon LinkLogic [facility] UNK - Ambulatory Encounter Chukwlinda Orthodox Nnabuife Jamarkwuemejose j Orthodox Nnabuife LinkLogic [facility] UNK - Ambulatory Encounter Comfort Christianson MedAdherence [facility] UNK - Ambulatory Encounter Chuodilia Orthodox Nnabuife Jamarkwlinda Orthodox Nnabuife [facility] UNK - Ambulatory Encounter Chukkavin Orthodox Nnabuife Chuvidhyawlinda Orthodox Nnabuife [facility] UNK - Ambulatory Encounter Chukkavin Orthodox Nnabuife Chukwlinda Orthodox Nnabuife [facility] UNK - Ambulatory Encounter Satinder Leon Orthodox Nnabuife Chukwlinda Orthodox Nnabuife [facility] Chronic pain syndrome - Ambulatory Encounter Edward Orthodox Nnabuife Gautamwlinda Orthodox Nnabuife [facility] UNK - Ambulatory Encounter LSJ Lab Support Desktop LinkLogic Jamarkwlinda Orthodox Nnabuife Jamarkwuekathya Orthodox Nnabuife [facility] UNK - Ambulatory Encounter Edward Orthodox Nnabuife Jamarkwuekathya Orthodox Nnabuife [facility] UNK - Ambulatory Encounter Edward Orthodox Nnabuife Chukwlinda Orthodox Nnabuife [facility] UNK - Ambulatory Encounter Comfort Leon Orthodox Nnabuife Edward Orthodox Nnabuife Osorio [facility] Well woman examCerumen impaction, bilateral - Ambulatory Encounter Satinder Christianson MedAdherence [facility] UNK - Ambulatory Encounter Satinder Christianson MedAdherence [facility] [place] UNK - Ambulatory Encounter Satinder Christianson MedAdherence Gautamwfabiánmejose j Orthodox Nnabuife Jamarkwuemejose j Orthodox Nnabuife Eusebia Gagnon [facility] UNK - Ambulatory Encounter Satinder Christianson MedAdherence [facility] UNK - Ambulatory Encounter Tiara Christianson [facility] - Ambulatory Encounter Edward Roa Nnabuife Jamarkwuemejose j Orthodox Nnabuife LinkLogic [facility] UNK - Ambulatory Encounter Edward Magañaian Nnabuife Jamarkwuemejose j Orthodox Nnabuife LinkLogic [facility] UNK - Ambulatory Encounter Satinder Christianson MedAdherence [facility] UNK - Ambulatory Encounter Satinder Harman [facility] UNK - Ambulatory Encounter Fax Status LinkLogic [facility] UNK - Ambulatory Encounter Fax Status [facility] - Ambulatory Encounter Fax Status LinkLogic [facility] UNK - Ambulatory Encounter Fax Status LinkLogic [facility] UNK - Ambulatory Encounter Fax Status LinkLogic [facility] UNK - Ambulatory Encounter Fax Status LinkLogic [facility] UNK - Ambulatory Encounter Satinder Montemayor Estrada [facility] UNK - Ambulatory Encounter Tiara Christianson MedAdherence Satinder Engel [facility] Contact Center UNK - Ambulatory Encounter Kimberly Oleary Francesca Delroy Leon Orthodox Nnabuife Edward Orthodox Nnabuife [facility] Contact Center UNK - Ambulatory Encounter Satinder Christianson MedAdherence [facility] UNK - Ambulatory Encounter Satinder Harman LinkLogic [facility] UNK - Ambulatory Encounter Fax Status [facility] Services UNK - Ambulatory Encounter Kishanmitkaylin Christianson MedAdherence [facility] UNK - Ambulatory Encounter Edward Magañaian Nnabuife Edward Orthodox Nnabuife LinkLogic [facility] UNK - Ambulatory Encounter Edward Orthodox Nnabuife Edward Orthodox Nnabuife LinkLogic [facility] UNK - Ambulatory Encounter Chuodilia Orthodox Nnabuife Edward Orthodox Nnabuife [facility] UNK - Ambulatory Encounter Chuodilia Orthodox Nnabuife Edward Orthodox Nnabuife [facility] UNK - Ambulatory Encounter Chuodilia Orthodox Nnabuife Edward Orthodox Nnabuife [facility] UNK - Ambulatory Encounter Yonnyhumitkaylin Leon Orthodox Nnabuife Edward Orthodox Nnabuife [facility] BMI 60.0-69.9, adultBMI 50.0-59.9 - Ambulatory Encounter Alayna Nava [facility] UNK - Ambulatory Encounter Kayla Tsangaux [facility] UNK - Ambulatory Encounter Kayla Ruel [facility] UNK - Ambulatory Encounter Edward Whiteabuinasir Whiteabjaimie Kayla Ruel [facility] UNK - Ambulatory Encounter Satinder Christianson MedAdherence Kayla Reich [facility] UNK - Ambulatory Encounter Fax Status LinkLogic [facility] UNK - Ambulatory Encounter Fax Status LinkLogic [facility] UNK - Ambulatory Encounter Fax Status [facility] UNK - Ambulatory Encounter Fax Status [facility] UNK - Ambulatory Encounter Bhavya Pedersen MedAdherence Clementine Velasquez [facility] Services [facility] UNK - Ambulatory Encounter Edward Whiteabjaimie Whiteabjaimie [facility] UNK - Ambulatory Encounter Edward Whiteabjaimie [facility] UNK - Ambulatory Encounter Edward Whiteabjaimie Whiteabuife [facility] UNK - Ambulatory Encounter Comfort Leon Orthodox Nnabuife Edward Orthodox Nnabuife Hafsa Will [facility] Dyspnea at restCHF exacerbation - Ambulatory Encounter Tiny Vazquez Mckeon Tiny Vazquez Mckeon [facility] UNK - Ambulatory Encounter Tiny Vazquez Mckeon Tiny Vazquez Mckeon Violette [facility] BMI 50.0-59.9BMI 60.0-69.9, adult - Ambulatory Encounter Kayla Ruel [facility] UNK - Ambulatory Encounter Satinder Christianson [facility] Francesca Potts [facility] Center K - Ambulatory Encounter Violette Yuri Kayla Lipscomb [facility] UNK - Ambulatory Encounter Chukwlinda Orthodox Nnabuife Gautamwlinda Orthodox Nnabuife LinkLogic [facility] UNK - Ambulatory Encounter Chukwlinda Orthodox Nnabuife Gautamwlinda Orthodox Nnabuife [facility] UNK - Ambulatory Encounter Chukwlinda Orthodox Nnabuife Gautamwlinda Orthodox Nnabuife [facility] UNK - Ambulatory Encounter Chukwlinda Orthodox Nnabuife Jamarkwfabiánmejose j Orthodox Nnabuife [facility] UNK - Ambulatory Encounter Chukkavin Orthodox Nnabuife Gautamwlinda Orthodox Nnabuife [facility] UNK - Ambulatory Encounter Gill Leon Orthodox Nnabuife Edward Orthodox Nnabuife Violette Yuri Will [facility] Acute upper respiratory infection - Ambulatory En[facility] - Ambulatory Encounter Satinder Ghazal [facility] UNK - Ambulatory Encounter Bhavya Pedersen [facility] Services Contact Center UNK - Ambulatory Encounter Comfort Trevino [facility] UNK - [facility] - [facility]ulatory Encounter Fax Status [facility] Services UNK - Ambulatory Encounter Fax Status [facility] Services UNK - Ambulatory Encounter Fax Status [facility] Services UNK - Ambulatory Encounter Alayna Chapman [facility] UNK - Ambulatory Encounter Edward Magañaian Nnabuife Edward Orthodox Nnabuife [facility] UNK - Ambulatory Encounter Edward Magañaian Nnabuife Edward Orthodox Nnabuife [facility] UNK - Ambulatory Encounter Edward Magañaian Nnabuife Edward Orthodox Nnabuife [facility] UNK - Ambulatory Encounter Satinder Leon Orthodox Nnabuife Edward Orthodox Nnabuife Priya Mars [facility] UNK - Ambulatory Encounter Parris Oleary [facility] UNK - Ambulatory Encounter Chukwuemejose j Orthodox Nnabuife Chukwuemejose j Orthodox Nnabuife LinkLogic [facility] UNK - Ambulatory Encounter Bhavya Bermudezo MedAdherence Kirsten Ibarra Chukwuemeka Orthodox Nnabuife Chukwuemejose j Orthodox Nnabuife Raysa Potts [facility] Services Contact Center UNK - Ambulatory Encounter Chukwuemejose j Orthodox Nnabuife Chukwuemejose j Orthodox Nnabuife [facility] UNK - Ambulatory Encounter Chukwuemejose j Orthodox Nnabuife Chukwuemejose j Orthodox Nnabuife [facility] UNK - Ambulatory Encounter Chukwuekathya Orthodox Nnabuife Chukwuemejose j Orthodox Nnabuife [facility] UNK - Ambulatory Encounter Chukwuekathya Orthodox Nnabuife Chukwuemejose j Orthodox Nnabuife [facility] UNK - Ambulatory Encounter Gill Roldankwuemeka Orthodox Nnabuife Chukwuemejose j Orthodox Nnabuife [facility] UNK - Ambulatory Encounter Bhavya Pedersen MedAdherence [facility] UNK - Ambulatory Encounter Kayla Serrano [facility] Contact Center UNK - Ambulatory Encounter Chukwuemejose j Orthodox Nnabuife Chukwuemejose j Orthodox Nnabuife [facility] UNK - Ambulatory Encounter Tab Chang [facility] UNK - Ambulatory Encounter Chukwuemejose j Orthodox Nnabuife Chukwuemejose j Orthodox Nnabuife [facility] UNK - Ambulatory Encounter Chukwuemejose j Orthodox Nnabuife Chukwuemejose j Orthodox Nnabuife [facility] UNK - Ambulatory Encounter LSJ Lab Support Desktop LinkLogic Tab Leon Orthodox Nnabuife Chukwuemejose j Orthodox Nnabuife [facility] UNK - Ambulatory Encounter Chukwuekathya Orthodox Nnabuife Chukwfabiánmejose j Orthodox Nnabuife [facility] UNK - Ambulatory Encounter Chukwlinda Orthodox Nnabuife Jamarkwlinda Orthodox Nnabuife [facility] UNK - Ambulatory Encounter Chukwlinda Orthodox Nnabuife Chukwuekathya Orthodox Nnabuife [facility] UNK - Ambulatory Encounter Comfort Christianson [facility] Chukwuekathya Orthodox Nnabuife Chukwuemejose j Orthodox Nnabuife Marielena Reich [facility] Screening for diabetes mellitusScreening for lipid disorder - Ambulatory Encounter Chukwlinda Orthodox Nnabuife Chukwuekathya Orthodox Nnabuife [facility] GERD - Ambulatory Encounter Chukkavin Orthodox Nnabuife Chukwuekathya Orthodox Nnabuinasir Isabel [facility] UNK - Ambulatory Encounter Chukwlinda Orthodox Nnabuife Jamarkwuekathya Orthodox Nnabuife [facility] UNK - Ambulatory Encounter Tab Leon Orthodox Nnabuife Chukwuemejose j Orthodox Nnabuife Vivian Swansonunas [facility] Contact Center UNK - Ambulatory Encounter Chukwuekathya Orthodox Nnabuife Chukwuemeka Orthodox Nnabuife [facility] UNK - Ambulatory Encounter Chukwuemejose j Orthodox Nnabuife Chukwuemejose j Orthodox Nnabuife [facility] UNK - Ambulatory Encounter Chukwlinda Orthodox Nnabuife Chukwuemejose j Orthodox Nnabuife [facility] UNK - Ambulatory Encounter Comfort Florezwuemejose j Orthodox Nnabuife Chukwuemejose j Orthodox Nnabuife [facility] Diabetes mellitus type II - Ambulatory Encounter Chukwuemejose j Orthodox Nnabuife Chukwuemejose j Orthodox Nnabuife LinkLogic [facility] UNK - Ambulatory Encounter Chukwuekathya Orthodox Nnabuife Chukwuemejose j Orthodox Nnabuife LinkLogic [facility] UNK - Ambulatory Encounter Loly Short [facility] UNK - Ambulatory Encounter Chukwuemejose j Orthodox Nnabuife Chukwuemeka Orthodox Nnabuife LinkLogic [facility] UNK - Ambulatory Encounter Chukwuemejose j Orthodox Nnabuife Chukwuemeka Orthodox Nnabuife [facility] UNK - Ambulatory Encounter Chukwuemeka Orthodox Nnabuife Chukwuemeka Orthodox Nnabuife [facility] UNK - Ambulatory Encounter Chuodilia Orthodox Nnabuife Edward Orthodox Nnabuife [facility] UNK - Ambulatory Encounter Chuodilia Orthodox Nnabuife Edward Orthodox Nnabuife [facility] UNK - Ambulatory Encounter Satinder Leon Orthodox Nnabuife Edward Orthodox Nnabuife [facility] UNK - Ambulatory Encounter Tiara Christianson MedAdherence [facility] UNK - Ambulatory Encounter Bhavya Pedersen MedAdherence [facility] UNK - Ambulatory Encounter Bhavya Pedersen MedAdherence LinkLogic [facility] UNK - Ambulatory Encounter Titi Kaitlynn Titi Kaitlynn LinkLogic [facility] UNK - Ambulatory Encounter Chuodilia Orthodox Nnabuife Edward Orthodox Nnabuife LinkLogic [facility] UNK - Ambulatory Encounter Chuodilia Orthodox Nnabuife Edward Orthodox Nnabuife LinkLogic [facility] UNK - Ambulatory Encounter Chuodilia Orthodox Nnabuife Edward Orthodox Nnabuife [facility] UNK - Ambulatory Encounter Chuodilia Orthodox Nnabuife Edward Orthodox Nnabuife [facility] UNK - Ambulatory Encounter Chuodilia Orthodox Nnabuife Chukwuemeka Orthodox Nnabuife [facility] UNK - Ambulatory Encounter Edward Whiteabuinasir Leon Orthodox Nnabuife [facility] UNK - Ambulatory Encounter Comfort Roa Nnabuife Edward Orthodox Nnabuife [facility] Abdominal distensionAbdominal pain, chronicAscitesUrinary retention - Ambulatory Encounter Tiara Christianson MedAdherence [facility] UNK - Ambulatory Encounter Tiara Christianson MedAdherence [facility] UNK - Ambulatory Encounter Tiara Christianson [facility] - Ambulatory Encounter Comfort Trevino [facility] UNK - Ambulatory Encounter Mae Rodney [facility] UNK - Ambulatory Encounter Fax Status LinkLogic [facility] UNK - Ambulatory Encounter Fax Status LinkLogic [facility] UNK - Ambulatory Encounter Fax Status LinkLogic [facility] UNK - Ambulatory Encounter Fax Status LinkLogic [facility] UNK - Ambulatory Encounter Fax Status [facility] UNK - Ambulatory Encounter Fax Status LinkLogic [facility] UNK - Ambulatory Encounter Edward Roa Nnabuife [facility] UNK - Ambulatory Encounter Edward Whiteabjaimie Leon Orthodox Nnabuife [facility] UNK - Ambulatory Encounter Edward Orthodox Nnabuife Edward Orthodox Nnabuife [facility] UNK - Ambulatory Encounter Toma Woodsrony Correiamarilyn Mcclellandez [facility] Mood Disorder, NOS - Ambulatory Encounter Lo Leon Orthodox Nnabuife Edward Orthodox Nnabuife Vivian Matthews [facility] Depression, majorSuicidal ideation - Ambulatory Encounter Comfort [facility] - [facility]ulatory Encounter Tiara Winslow [facility] UNK - Ambulatory Encounter Bhavya Pedersen [facility] UNK - Ambulatory Encounter Bhavya Pedersen MedAdher[facility] UNK - Ambulatory Encounter Edward Roa Nnabuife Edward Orthodox Nnabuife [facility] UNK - Ambulatory Encounter Edward Orthodox Nnabuife Edward Orthodox Nnabuife [facility] UNK - Ambulatory Encounter Edward Orthodox Nnabuife Edward Orthodox Nnabuife [facility] UNK - Ambulatory Encounter Edward Orthodox Nnabuife Edward Orthodox Nnabuife [facility] UNK - Ambulatory Encounter Edward Orthodox Nnabuife Edward Orthodox Nnabuife [facility] UNK - Ambulatory Encounter Gill Leon Orthodox Nnabuife Edward Orthodox Nnabuife [facility] UNK - Ambulatory Encounter Loly Winslow [facility] UNK - Ambulatory Encounter Tiara Christianson MedAdherence [facility] UNK - Ambulatory Encounter Edward Roa Nnabuinasir Roa Nnabuife [facility] UNK - Ambulatory Encounter Bhavya Pedersen MedAdherence [facility] UNK - Ambulatory Encounter Bhavya Pedersen MedAdherence LinkLog [facility] UNK - Ambulatory Encounter Edward Magañaian Nnabuife Edward Orthodox Nnabuife Tab Matthews [facility] UNK - Ambulatory Encounter Comfort Trevino LinkLog [facility] UNK - Ambulatory Encounter Edward Orthodox Nnabuife Edward Orthodox Nnabuife [facility] UNK - Ambulatory Encounter Edward Orthodox Nnabuife Edward Orthodox Nnabuife [facility] UNK - Ambulatory Encounter Chuodilia Orthodox Nnabuife Edward Orthodox Nnabuife [facility] UNK - Ambulatory Encounter Chuodilia Orthodox Nnabuife Chukkavin Whiteabuife [facility] UNK - Ambulatory Encounter Comfort Roa Nnabjaimie Roa Nnabuife [facility] COPD with exacerbation - Ambulatory Encounter Tiara Christianson MedAdherence [facility] UNK - Ambulatory Encounter Tiara Christianson MedAdherence Loly Winslow Donna [facility] Services UNK - Ambulatory Encounter Tiara Christianson MedAdherence [facility] UNK - Ambulatory Encounter Edward Whiteabuife [facility] UNK - Ambulatory Encounter Edward Roa Nnabuife [facility] UNK - Ambulatory Encounter Gill Whiteabjaimie Roa Nnabuife [facility] UNK - Ambulatory Encounter Loly Burn[facility]ty [facility] - Ambulatory Encounter Edward Whiteabjaimie Whiteabuife LinkLogic [facility] UNK - Ambulatory Encounter Loly Winslow Donna Sabiha [facility] UNK - Ambulatory Encounter Fax Status [facility] - Ambulatory Encounter Fax Status [facility] UNK - Ambulatory Encounter Fax Status [facility] UNK - Ambulatory Encounter Fax Status LinkLogic [facility] UNK - Ambulatory Encounter Fax Status LinkLogic [facility] UNK - Ambulatory Encounter Fax Status LinkLogic [facility] UNK - Ambulatory Encounter Titi Kaitlynn Titi Kaitlynn [facility] UNK - Ambulatory Encounter Titi Kaitlynn Titi Kaitlynn [facility] UNK - Ambulatory Encounter Titi Kaitlynn Titi Kaitlynn [facility] UNK - Ambulatory Encounter Lo Gu Titi Kaitlynn Titi [facility] MUSCLE SPASMEAR PAIN, RIGHTCandidal vaginitisOtitis media, acute - Ambulatory Encounter Satinder Gu [facility] Contact [facility] UNK - Ambulatory Encounter Fax Status LinkLogic [facility] UNK - Ambulatory Encounter Fax Status LinkLogic [facility] UNK - Ambulatory Encounter Fax Status LinkLogic [facility] UNK - Ambulatory Encounter Bhavya Palacio [facility] UNK - Ambulatory Encounter Gautamwlinda Roa Nnabuife Edward Roa Nnabuinasir [facility] UNK - Ambulatory Encounter Satinder Whiteabuinasir Roa Nnabuife Ayanna Matthews [facility] Breast abnormal findingsChronic bronchitisBMI 50.0-59.9 - Ambulatory Encounter Comfort Trevino [facility] UNK - Ambulatory Encounter Tiara Christianson MedAdherence [facility] UNK - Ambulatory Encounter Tiara Christianson MedAdherence LinkLogic [facility] UNK - Ambulatory Encounter Bhavya Pedersen MedAdherence [facility] UNK - Ambulatory Encounter Bhavya Pedersen MedAdherence LinkLogic [facility] UNK - Ambulatory Encounter Lo Sierra [facility] UNK - Ambulatory Encounter Lo Esquivel [facility] UNK - Ambulatory Encounter Bhavya Pedersen MedAdherence Stephanie Hernandez [facility] Contact Center UNK - Ambulatory Encounter [place] Sierra [facility] UNK - Ambulatory Encounter Maddarryl Sierra [facility] UNK - Ambulatory Encounter Madhumitkaylin Sierra [facility] UNK - Ambulatory Encounter Nupur Chong [facility] UNK - Ambulatory Encounter Nupur Chong [facility] UNK - Ambulatory Encounter Edwin Umana [facility] UNK - Ambulatory Encounter Edwin Umana [facility] UNK - Ambulatory Encounter Edwin Umana [facility] UNK - Ambulatory Encounter Comfort Gamino [facility] MORBID OBESITYOtitis media, acute - Ambulatory Encounter Fabricio Beard [facility] UNK - Ambulatory Encounter Lo Esquivel [facility] UNK - Ambulatory Encounter Lo Ma Stevenson [facility] Candidal vaginitis - Ambulatory Encounter Lo Esquivel [facility] UNK - Ambulatory Encounter Breana Rosario [facility] UNK - Ambulatory Encounter Breana Rosario [facility] UNK - Ambulatory Encounter Mary Soriaillo [facility] UNK - Ambulatory Encounter Fabricio Beard [facility] UNK - Ambulatory Encounter Bria Young [facility] UNK - Ambulatory Encounter Janet [facility] UNK - Ambulatory Encounter Fabricio Beard [facility] UNK - Ambulatory Encounter Gita Dewey [facility] UNK - Ambulatory Encounter Comfort Trevino [facility] UNK - Ambulatory Encounter Bhavya Pedersen MedAdherfaheem [facility] UNK - Ambulatory Encounter Comfort Trevino [facility] UNK - Ambulatory Encounter Carmelina Gu [facility] Account Developer UNK - Ambulatory Encounter Jan Johnson [facility] Account Developer UNK - Ambulatory Encounter Fax Status [facility] UNK - Ambulatory Encounter Fax Status [facility] UNK - Ambulatory Encounter Fax Status [facility] UNK - Ambulatory Encounter Deniz Lira [facility] UNK - Ambulatory Encounter Bhavya Pedersen MedAdherence [facility] UNK - Ambulatory Encounter Comfort Trevino [facility] UNK - Ambulatory Encounter Comfort Trevino [facility] UNK - Ambulatory Encounter Comfort Trevino [facility] UNK - Ambulatory Encounter Fax Status [facility] UNK - Ambulatory Encounter Fax Status [facility] UNK - Ambulatory Encounter Comfort Trevino [facility] UNK - Ambulatory Encounter Fax Status [facility] UNK - Ambulatory Encounter Fax Status [facility] UNK - Ambulatory Encounter Comfort Trevino [facility] UNK - Ambulatory Encounter Comfort Trevino [facility] UNK - Ambulatory Encounter Comfort Trevino [facility] UNK - Ambulatory Encounter Comfort Trevino [facility] UNK - Ambulatory Encounter Kimberly Bermudezo MedAdherence Comfort Feldman [facility] UNK - Ambulatory Encounter Kimberly Trevino [facility] UNK - Ambulatory Encounter Tab Chang [facility] UNK - Ambulatory Encounter Fax Status [facility] UNK - Ambulatory Encounter Fax Status [facility] UNK - Ambulatory Encounter Fax Status [facility] UNK - Ambulatory Encounter Kimberly Trevino [facility] UNK - Ambulatory Encounter Comfort Trevino [facility] UNK - Ambulatory Encounter Comfort TorresLogedward [facility] - Ambulatory Encounter Fax Status [facility] UNK - Ambulatory Encounter [facility]ie [facility] - [facility]ulatory Encounter Fax Status [facility] UNK - Ambulatory Encounter Fax Status [facility] UNK - Ambulatory Encounter Comfort TorresLogedward [facility] UNK - Ambulatory Encounter Kimberly Trevino [facility] UNK - Ambulatory Encounter Comfort TorresLogedward [facility] - Ambulatory Encounter [facility]andie Feldman [facility] UNK - Ambulatory Encounter Gosia Trevino [facility] UNK - Ambulatory Encounter Comfort Boothedward Mayes [facility] UNK - Ambulatory Encounter Comfort Tellez [facility] CHRONIC OBSTRUCTIVE PULMONARY DISEASE, ACUTE EXACERBATIONCHFSLEEP APNEA - Ambulatory Encounter Gill Villafuerte [facility] - [facility]ulatory Encounter [facility] UN[facility] - Ambulatory Encounter Fax Status [facility] UNK - Ambulatory Encounter [facility] - [facility] En[facility] - [facility]ulatory Encounter [facility] - Ambulatory Encounter F[facility] - Ambulatory Encounter F[facility] UNK - Ambulatory Encounter Jenny Feldman [facility] UNK - Ambulatory Encounter Thea Lambshmorgan Caputoserenakaylin Rosalinda Ward [facility] LOW BACK PAIN - Ambulatory Encounter Sabra Mitchell [facility] UNK - Ambulatory Encounter Sabra Stephen [facility] UNK - Ambulatory Encounter Ernesto Gaffney [facility] DEPENDENT EDEMA, LEGS - Ambulatory Encounter Bhavya Pedersen MedAdherence [facility] UNK - Ambulatory Encounter Bhavya Pedersen MedAdherence [facility] UNK - [facility] - [facility] Jonelle [facility] UNK - Ambulatory Encounter Jonelle [facility] UNK - Ambulatory Encounter Jonelle [facility] UNK - Ambulatory Encounter Jonelle [facility] UNK - Ambulatory Encounter Malena Isabel [facility] UNK - Ambulatory Encounter Ernesto Matthews [facility] EAR PAIN, RIGHTBLURRED VISIONHEARING DEFICIT - Ambulatory Encounter Moravian Preload [facility] UNK - Ambulatory Encounter Moravian Preload [facility] UNK - Ambulatory Encounter Moravian Preload [facility] UNK - Ambulatory Encounter Moravian Preload [facility] UNK - Ambulatory Encounter Moravian Preload [facility] UNK - Ambulatory Encounter Moravian Preload [facility] UNK - Ambulatory Encounter Moravian Preload [facility] UNK - Ambulatory Encounter Moravian Preload [facility] UNK - Ambulatory Encounter Moravian Preload [facility] UNK - Ambulatory Encounter Moravian Preload [facility] UNK - Ambulatory Encounter Moravian Preload [facility] UNK - Ambulatory Encounter Moravian Preload [facility] UNK - Ambulatory Encounter Moravian Preload [facility] UNK - Ambulatory Encounter Moravian Preload [facility] UNK - Ambulatory Encounter Moravian Preload [facility] UNK - Ambulatory Encounter Moravian Preload [facility] UNK - Ambulatory Encounter Moravian Preload [facility] UNK - Ambulatory Encounter Moravian Preload [facility] UNK - Ambulatory Encounter Moravian Preload [facility] UNK - Ambulatory Encounter Moravian Preload [facility] UNK - Ambulatory Encounter Moravian Preload [facility] UNK - Ambulatory Encounter Moravian Preload [facility] UNK - Ambulatory Encounter Moravian Preload [facility] UNK - Ambulatory Encounter Moravian Preload [facility] UNK - Ambulatory Encounter Moravian Preload [facility] UNK - Ambulatory Encounter Moravian Preload [facility] UNK - Ambulatory Encounter Moravian Preload [facility] UNK - Ambulatory Encounter Moravian Preload [facility] UNK - Ambulatory Encounter Moravian Preload [facility] UNK - Ambulatory Encounter Moravian Preload [facility] UNK - Ambulatory Encounter Moravian Preload [facility] UNK - Ambulatory Encounter Moravian Preload [facility] UNK - Ambulatory Encounter Moravian Preload [facility] UNK - Ambulatory Encounter Moravian Preload [facility] UNK - Ambulatory Encounter Moravian Preload [facility] UNK - Ambulatory Encounter Moravian Preload [facility] UNK - Ambulatory Encounter Moravian Preload [facility] UNK - Ambulatory Encounter Moravian Preload [facility] UNK - Ambulatory Encounter Moravian Preload [facility] UNK - Ambulatory Encounter Moravian Preload [facility] UNK - Ambulatory Encounter Moravian Preload [facility] UNK - Ambulatory Encounter Moravian Preload [facility] UNK - Ambulatory Encounter Moravian Preload [facility] UNK - Ambulatory Encounter Moravian Preload [facility] UNK - Ambulatory Encounter Moravian Preload [facility] UNK - Ambulatory Encounter Moravian Preload [facility] UNK - Ambulatory Encounter Moravian Preload [facility] UNK - Ambulatory Encounter Moravian Preload [facility] UNK - Ambulatory Encounter Moravian Preload [facility] UNK - Ambulatory Encounter Moravian Preload [facility] UNK - Ambulatory Encounter Moravian Preload [facility] UNK - Ambulatory Encounter Moravian Preload [facility] UNK - Ambulatory Encounter Moravian Preload [facility] UNK - Ambulatory Encounter Moravian Preload [facility] UNK - Ambulatory Encounter Moravian Preload [facility] UNK - Ambulatory Encounter Moravian Preload [facility] UNK - Ambulatory Encounter Moravian Preload [facility] UNK - Ambulatory Encounter Moravian Preload [facility] UNK - Ambulatory Encounter Moravian Preload [facility] UNK - Ambulatory Encounter Moravian Preload [facility] UNK - Ambulatory Encounter Moravian Preload [facility] UNK - Ambulatory Encounter Moravian Preload [facility] UNK - Ambulatory Encounter Moravian Preload [facility] UNK - Ambulatory Encounter Moravian Preload [facility] UNK - Ambulatory Encounter Moravian Preload [facility] UNK - Ambulatory Encounter Moravian Preload [facility] UNK - Ambulatory Encounter Moravian Preload [facility] UNK - Ambulatory Encounter Moravian Preload [facility] UNK - Ambulatory Encounter Annemarie Gaffney [facility] UNK - Ambulatory Encounter Moravian Preload [facility] UNK - Ambulatory Encounter Moravian Preload [facility] UNK - Ambulatory Encounter Moravian Preload [facility] UNK - Ambulatory Encounter Moravian Preload [facility] UNK - Ambulatory Encounter Moravian Preload [facility] UNK - Ambulatory Encounter Moravian Preload [facility] UNK - Ambulatory Encounter Moravian Preload [facility] UNK - Ambulatory Encounter Moravian Preload [facility] UNK - Ambulatory Encounter Moravian Preload [facility] UNK - Ambulatory Encounter Moravian Preload [facility] UNK - Ambulatory Encounter Moravian Preload [facility] UNK - Ambulatory Encounter Moravian Preload [facility] UNK - Ambulatory Encounter Moravian Preload [facility] UNK - Ambulatory Encounter Moravian Preload [facility] UNK - Ambulatory Encounter Moravian Preload [facility] UNK - Ambulatory Encounter Moravian Preload [facility] UNK - Ambulatory Encounter Moravian Preload [facility] UNK - Ambulatory Encounter Moravian Preload [facility] UNK - Ambulatory Encounter Moravian Preload [facility] UNK - Ambulatory Encounter Moravian Preload [facility] UNK - Ambulatory Encounter Moravian Preload [facility] UNK - Ambulatory Encounter Moravian Preload [facility] UNK - Ambulatory Encounter Moravian Preload [facility] UNK - Ambulatory Encounter Moravian Preload [facility] UNK - Ambulatory Encounter Moravian Preload [facility] UNK - Ambulatory Encounter Moravian Preload [facility] UNK - Ambulatory Encounter Moravian Preload [facility] UNK - Ambulatory Encounter Moravian Preload [facility] UNK - Ambulatory Encounter Moravian Preload [facility] UNK - Ambulatory Encounter Moravian Preload [facility] UNK - Ambulatory Encounter Moravian Preload [facility] UNK - Ambulatory Encounter Moravian Preload [facility] UNK - Ambulatory Encounter Moravian Preload [facility] UNK - Ambulatory Encounter Moravian Preload [facility] UNK - Ambulatory Encounter Moravian Preload [facility] UNK - Ambulatory Encounter Moravian Preload [facility] - Ambulatory Encounter Moravian Preload [facility] UNK - Ambulatory Encounter Moravian Preload [facility] UNK - Ambulatory Encounter Moravian Preload [facility] UNK - Ambulatory Encounter Moravian Preload [facility] UNK - Ambulatory Encounter Moravian Preload [facility] UNK - [facility] - [facility] Encounter Annemarie Gaffney [facility] UNK - Ambulatory Encounter Gill Villafuerte [facility] Annemarie Gaffney [facility] UNK - Ambulatory Encounter Gill Villafuerte Colleen Pace Annemarie Batistaen Gulshan [facility] UNK - Ambulatory Encounter Gill [facility] UNK - Ambulatory Encounter Annmearie Pedersen MedAdherence [facility] UNK - Ambulatory Encounter Gill Villafuerte [facility] UNK - Ambulatory Encounter Gill Batistaen Gulshan Gutierrez [facility] COPDNICOTINE ADDICTIONSARCOIDOSISHYPERTENSIONMUSCLE SPASM - Ambulatory Encounter Ernesto Garcia [facility] UNK VITAL SIGNS No Information Available ALLERGIES [...] % of total hemoglobin 7.3 % Edward Boyceuinasir hepatitis B surface antigen Negative LinkLogic Negative [...] 3.4-10.8 High blood glucose, random 256 mg/dL [facility] " hemoglobin A1C, blood, as % of total hemoglobin 8.3 % [facility] HospitalfabiánGuern[facility] Memorial Hospitalian nikolai hematocrit, blood 37.6 % Kayla Lipscomb " [...] EXTENDED RELEASE 1 by mouth every day Gautamallan Crispin Delgado TRAMADOL HCL 50 MG ORAL TABLET 1-2 tablets by mouth 4 times a day as needed for pain Edward Boyceuinasir NAPROXEN 500 MG ORAL TABLET 1 by mouth twice a day as needed for pain and inflammation Abisai Crispin Delgado DEBROX 6.5 % OTIC SOLUTION apply 10 drops in each ear Twice a Day Gautamallan Crispin Delgado NEBULIZER Please use as indicated Edward Delgado METFORMIN HCL 1000 MG TABS TAKE 1 TABLET BY MOUTH TWICE DAILY [facility] MUCINEX 600 MG ORAL TABLET EXTENDED [...] 1 TABLET BY MOUTH ONCE DAILY Bhavya CisnerosAdherva [facility] FREESTYLE LANCETS Use as directed to test blood sugar once daily [facility] BlayneAdherva [facility] ICD CODE E11.9 FREESTYLE LITE TEST IN VITRO STRIP Use as directed to test blood sugar once daily [facility] ICD CODE E11.9 FREESTYLE FREEDOM LITE W/DEVICE KIT Use as directed to test blood sugar once daily [facility] ICD CODE E11.9 BD ULTRA-FINE MICRO PEN NEEDLE 32G X 6 MM use as instructed with kwik pen Edward Delgado PANTOPRAZOLE SOD 40MG TAB TAKE 1 TABLET BY MOUTH ONCE DAILY Tiara [employer]va [facility] HUMALOG MIX 75/25 KWIKPEN (75-25) 100 UNIT/ML SUBCUTANEOUS SUSPENSION PEN-INJECT INJECT 50 UNITS SUB-Q 15 MINUTES BEFORE BREAKFAST AND 26 UNITS 15 MINUTES BEFORE DINNER DAILY Katy CisnerosBro[facility], AZITHROMYCIN 250 MG ORAL TABLET 2 tablets [...] Times a Day to administer insulin Tiara Newman InfiniteAdherfaheem Updated directions IPRATROPIUM/ ALBUTER EMI USE 1 AMPULE IN NEBULIZER EVERY 4 HOURS NEEDED FOR WHEEZING Tiara Newman InfiniteAdherfaheem AZITHROMYCIN 250 MG ORAL TABLET 2 tablets [...] Times a Day As Needed - Titi Calderón ADVAIR DISKUS 250-50 MCG/DOSE INHALATION AEROSOL POWDER BREATH ACTIVATED 1 puff BID - Annemarie Gaffney LISINOPRIL-HYDROCHLOROTHIAZIDE 10-12.5 MG ORAL TABLET take 1 By Mouth daily - Edward Whiteabuife PREDNISONE 20MG TAB TAKE 1 TABLET BY MOUTH ONCE DAILY Edward Roa Nnabuife PROVENTIL HFA 108 (90 Base) MCG/ACT INHALATION AEROSOL SOLUTION 2 puffs every 4 hours as needed - Comfort Trevino ADVAIR DISKUS 250-50 MCG/DOSE INHALATION AEROSOL POWDER BREATH ACTIVATED take 1 puff Twice a Day - Annemarie Gaffney SOCIAL HISTORY Date Observation Value Provider social history E&M Single. Not homeless. Born in [facility]. City: [place]. State: [place]. Not employed. Retired. Highest education level: high school graduate. Gender of partner(s): male. Francesca Diana " social history reviewed E&M reviewed today Francesca Diana " assessment [facility] health literacy ([facility] Standards, 3C10) Adequate Francesca Diana " [...] history E&M Single. Not homeless. Born in [facility]. City: [place]. State: [place]. Not employed. Retired. Highest education level: high school graduate. Gender of partner(s): male. Nupur Chong " social history reviewed E&M reviewed today Nupur Chong " assessment of health literacy ([facility] 2014 Standards, 3C10) Adequate Nupur Chong " passive cigarette smoke exposure Yes Nupur Chong " smoking status former smoker Nupur Chong time of call 04/02/2019 8:30 AM Daphney Espitia drug use, illicit Never Stephanie Chalo " alcohol use Currently Stephanie Chalo " social history E&M Single. Not homeless. Born in [facility]. City: [place]. State: [place]. Not employed. Retired. Highest education level: high school graduate. Gender of partner(s): male. Stephanie Isabel " social history reviewed E&M reviewed today Stephanie Isabel " assessment of health literacy ([facility] 2014 Standards, 3C10) Adequate Stephanie Chalo " passive cigarette smoke exposure Yes Stephanie Chalo " smoking status former smoker Stephanie Isabel " Exercise Program Referral T Stephanie Chalo " Weight Management Counseling Provided T Stephanie Chalo " Nutrition intervention T Stephanie Isabel sunscreen use No [employer] " Exercise Program Referral T Edward Roa Nnabuinasir " Weight Management Counseling Provided T Edward Roa Nn[place]uife " Nutrition intervention T Edward Magañaian Nnabuife " drug use, illicit Never Nupur Chong " alcohol use Currently Nupur Chong " social history E&M Single. Not homeless. Born in [facility]. City: [place]. State: [place]. Not employed. Retired. Highest education level: high school graduate. Gender of partner(s): male. Nupur Chong " social history reviewed E&M reviewed today Nupur Chong " assessment of health literacy ([facility] 2014 Standards, 3C10) Adequate Nupur [...] history E&M Single. Not homeless. Born in [facility]. City: [place] [place]. State: [place]. Not employed. Retired. Highest education level: high school graduate. Gender of partner(s): male. Nupur Chong " social history reviewed E&M reviewed today Nupur Chong " assessment of health literacy ([facility] 2014 Standards, 3C10) Adequate Nupur Chong " passive cigarette smoke exposure No Nupur Chong " smoking status former smoker Nupur Chong time of call 11/21/2018 9:45 AM Joaquim Engel drug use, illicit Never Stephanie Chalo " alcohol use Currently Stephanie Chalo " social history E&M Single. Not homeless. Born in [facility]. City: [place]. State: [place]. Not employed. Retired. Highest education level: high school graduate. Gender of partner(s): male. Stephanie Isabel " social history reviewed E&M reviewed today Stephanie Isabel " assessment of health literacy ([facility] 2014 Standards, 3C10) Adequate Stephanie [...] history E&M Single. Not homeless. Born in [facility]. City: [place]. State: [place]. Not employed. Retired. Highest education level: high school graduate. Gender of partner(s): male. Hafsa Will " social history reviewed E&M reviewed today Hafsa Will " assessment of health literacy ([facility] 2014 Standards, 3C10) Adequate Hafsa [...] history E&M Single. Not homeless. Born in [facility]. City: [place]. State: [place]. Not employed. Retired. Highest education level: high school graduate. Gender of partner(s): male. Violette Pool " social history reviewed E&M reviewed today Violette Pool " assessment of health literacy ([facility] 2014 Standards, 3C10) Adequate Violette Pool " passive cigarette smoke exposure No Violette Pool " smoking status former smoker Violette Pool alcohol use Currently Hafsa Will " drug use, illicit Never Hafsa Will " social history E&M Single. Not homeless. Born in [facility]. City: [facility] [place]. State: [place]. Not employed. Retired. Highest education level: high school graduate. Gender of partner(s): male. Hafsa Will " social history reviewed E&M reviewed today Hafsa Will " assessment of health literacy ([facility] 2014 Standards, 3C10) Adequate Hafsa [...] history E&M Single. Not homeless. Born in [facility]. City: [facility]. State: [place]. Not employed. Retired. Highest education level: high school graduate. Gender of partner(s): male. Priya Jerad " social history reviewed E&M reviewed today Priya Jerad " assessment of health literacy ([facility] 2014 Standards, 3C10) Adequate Priya [...] Raysa Potts Exercise Program Referral T Edward Magañaian Nnabuinasir " Weight Management Counseling Provided T Opalfabiánjose j Orthodox Nnabuife " Nutrition intervention T Jamaromarfabiánjose j Crispin Boyceuife " social history E&M Single. Not homeless. Born in [facility]. City: [facility]. State: [place]. Not employed. Retired. Highest education level: high school graduate. Gender of partner(s): male. Alayna Chapman " social history reviewed E&M reviewed today Alayna Chapman " assessment of health literacy ([facility] 2014 Standards, 3C10) Adequate Alanya Chapman " passive cigarette smoke exposure Yes Alayna Chapman " smoking status former smoker Alayna Chapman time of call 04/24/2018 11:41 AM Gayle Serrano drug use, illicit Never Stephanie Isabel " alcohol use Currently Stephanie Isabel " social history E&M Single. Not homeless. Born in [facility]. City: [facility]. State: [place]. Not employed. Retired. Highest education level: high school graduate. Gender of partner(s): male. Stephanie Isabel " social history reviewed E&M reviewed today Stephanie Isabel " assessment of health literacy ([facility] 2014 Standards, 3C10) Adequate Stephanie Isabel " passive cigarette smoke exposure Yes Stephanie Isabel " smoking status former smoker Stehpanie Isabel " Exercise Program Referral T Stephanie Isabel " Weight Management Counseling Provided T Stephanie Isabel " Nutrition intervention T Stephanie Isabel time of call 04/05/2018 10:07 AM Alayna Gu drug use, illicit Never Alayna Chapman " alcohol use Currently Alayna Chapman " social history E&M Single. Not homeless. Born in [facility]. City: [facility] [place]. State: [place]. Not employed. Retired. Highest education level: high school graduate. Gender of partner(s): male. Alayna Chapman " social history reviewed E&M reviewed today Alayna Chapman " assessment of health literacy ([facility] 2014 Standards, 3C10) Adequate Alayna Chapman " passive cigarette smoke exposure No Alayna Chapman " smoking status former smoker Alayna Chapman " Exercise Program Referral T Alayna Chapman " Weight Management Counseling Provided T Alayna Chapman " Nutrition intervention T Alayna Chapman Exercise Program Referral T Edward Delgado " Weight Management Counseling Provided T Edward Delgado " Nutrition intervention T Opalfabiánjose j Orthodox Danny " alcohol use Currently Alayna Chapman " social history E&M Single. Not homeless. Born in [facility]. City: [facility] [place]. State: [place]. [place] employed. Retired. Highest education level: high school graduate. Gender of partner(s): male. Alayna Chapman " social history reviewed E&M reviewed today Alayna Chapman " assessment of health literacy ([facility] 2014 Standards, 3C10) Adequate Alayna Chapman " passive cigarette smoke exposure No Alayna Chapman " smoking status former smoker Alayna Chapman " assessment of health literacy ([facility] 2014 Standards, 3C10) Adequate Alayna Chapman " drug use, illicit Never Alayna Chapman " alcohol use Currently Alayna Chapman " social history E&M Single. Not homeless. Born in [facility]. City: [facility]. [place]: [place]. [place]. Retired. Highest education level: high [...] Addendum Question 5, means and availability No Tmoa Woods " Suicide Addendum Question 4, plan [...] history E&M Single. Not homeless. Born in [facility]. City: [facility]. [place]: [place]. Not employed. Retired. Highest education level: high school graduate. Gender of partner(s): male. Vivian Sin " social history reviewed E&M reviewed today Vivian Sin " passive cigarette smoke exposure No Vivian Sin " smoking status former smoker Vivian Sin " Exercise Program Referral T Vivian Sin " Weight Management Counseling Provided Miguel A Sin " Nutrition intervention Miguel A Sin time of call 12/05/2017 2:22 PM Sera Bob drug use, illicit Never Stephanie Isabel " alcohol use Currently Stephanie Isabel " social history E&M Single. Not homeless. Born in [facility]. City: [facility]. [place]: [place]. Not [place]. Retired. Highest education level: high [...] of call 10/25/2017 2:55 PM Ana M Palacoi Exercise Program Referral T Abisaijose j Crispin Boyceuinasir " Weight Management Counseling Provided T Abisaijose j Crispin Boyceuife " Nutrition intervention T Abisaijose j Crispin Whiteabuife " social history E&M Single. Not homeless. Born in [facility]. City: [facility]. [place]: [place]. Not [place]. Retired. Highest education level: high school graduate. Gender of partner(s): male. Edward Orthodox Danny " social history reviewed E&M reviewed today Jamarodilia Crispin Delgado " drug use, illicit Never Nupur Chong " alcohol use Currently Nupur Chong " passive cigarette smoke exposure Yes Nupur Chong " smoking status former smoker Nupur Chong time of call 09/02/2017 9:48 AM [facility] No Edward Orthodox Austenuinasir " social history E&M Single. Not homeless. Born in [facility]. City: [facility]. State: [place]. Not employed. Retired. Highest education level: high school graduate. Gender of partner(s): male. Jamarodilia Orthodox Danny " social history reviewed E&M reviewed today Jamaremilyjose j Crispin Delgado " passive cigarette smoke exposure Yes Taina Riccardo " smoking status former smoker Taina Gu time of call 08/11/2017 8:56 AM Donna Sabiha Exercise Program Referral T Titicleveland Calderón " Weight Management Counseling Provided T Titicleveland Calderón " Nutrition intervention T Titicleveland Sommermi " passive cigarette smoke exposure No Tainakaylin Gu " smoking status former smoker Taina Gu time of call 07/21/2017 4:25 PM Alayna Gu social history E&M Single. Not homeless. Born in [facility]. City: [facility]. State: [place]. Not employed. Retired. Highest education level: high school graduate. Gender of partner(s): male. Edward Delgado " social history reviewed E&M reviewed today Abisaijose j Crispin Delgado " Exercise Program Referral T Edward Delgado " Weight Management Counseling Provided T Edward Delgado " Nutrition intervention T Edward Boyceuinasir time [...] history E&M Single. Not homeless. Born in [facility]. City: [facility]. [place]: [place]. [place]. Retired. Highest education level: high [...] history E&M Single. Not homeless. Born in [facility]. City: [facility]. [place]: [place]. [place]. Retired. Highest education level: high school graduate. Gender of partner(s): male. Honey Harringtonoy " drug use, illicit Never Honey Gutierrez " alcohol use Never Honeytejas Gutierrez [...] of judgment and insight E&M intact Edward Magañaian Nnabuife " assessment of mood and affect E&M no depression, anxiety, or agitation [facility] " mental status examination: orientation E&M oriented to time, place, and person [facility] " Generalized Anxiety Disorder Questionnaire - Question 2 0 Nupur Castillo " Generalized Anxiety Disorder Questionnaire - Question 1 0 Nupur Chong assessment of judgment and insight E&M intact [facility] [place] [facility] " mental status examination: orientation E&M oriented to time, place, and person [facility] Nnab[facility]ife " assessment of mood and affect E&M no depression, anxiety, or agitation [facility] [place] Nn[facility] " Generalized Anxiety Disorder Questionnaire - Question 2 0 Stephanie Isabel " Generalized Anxiety Disorder Questionnaire - Question 1 0 Stephanie Isabel assessment of judgment and insight [facility] intact [facility] " mental status examination: orientation E&M oriented to time, place, and person [facility] N[facility]ife " assessment of mood and affect E&M anxious, depressed mood [facility] " Generalized Anxiety Disorder Questionnaire - [...] assessment of judgment and insight E&M intact [facility] Nnabui " mental status examination: orientation E&M oriented to time, place, and person [facility] Nnabuife " assessment of mood and affect E&M anxious, depressed mood [facility] N[facility] " Generalized Anxiety Disorder Questionnaire - Question 2 0 Stephanie Isabel " Generalized Anxiety Disorder Questionnaire - Question 1 0 Stephanie Isabel assessment of judgment and insight E&M intact [place] [facility] Nnabui " mental status examination: orientation E&M oriented to time, place, and person [facility] " assessment of mood and affect E&M [...] of judgment and insight E&M intact [facility] " mental status examination: orientation E&M oriented to time, place, and person [facility] " assessment of mood and affect E&M anxious, depressed mood Edward Fraga assessment of judgment and insight E&M intact Edward [facility] " mental status examination: orientation E&M oriented to time, place, and person [facility] " assessment of mood and affect E&M anxious, depressed mood [facility] " Generalized Anxiety Disorder Questionnaire - Question 2 0 Priya Mars " Generalized Anxiety Disorder Questionnaire - Question 1 0 Priya Mars assessment of judgment and insight E&M intact Edward [facility] " mental status examination: orientation E&M oriented to time, place, and person [facility] Roa [facility] " assessment of mood and affect E&M anxious, depressed mood [facility] " Generalized Anxiety Disorder Questionnaire - Question 2 0 Alayna Chapman " Generalized Anxiety Disorder Questionnaire - Question 1 0 Alayna Chapman assessment of judgment and insight E&M intact Edward [facility] " mental status examination: orientation E&M oriented to time, place, and person [facility] " assessment of mood and affect E&M anxious, depressed mood [facility] " Generalized Anxiety Disorder Questionnaire - Question 2 0 Stephanie Isabel " Generalized Anxiety Disorder Questionnaire - Question 1 0 Stephanie Isabel assessment of judgment and insight E&M intact [facility] " mental status examination: orientation E&M oriented to time, place, and person [facility] " assessment of mood and affect E&M anxious, depressed mood [facility] Orthodox [facility] " Generalized Anxiety Disorder Questionnaire - Question 2 0 Alayna Chapman " Generalized Anxiety Disorder Questionnaire - Question 1 0 Alayna Chapman assessment of judgment and insight E&M intact [facility] " mental status examination: orientation E&M oriented to time, place, and person [facility] " assessment of mood and affect E&M anxious, depressed mood [facility] Orthodox [facility] " Generalized Anxiety Disorder Questionnaire - Question 2 0 Alayna Chapman " Generalized Anxiety Disorder Questionnaire - Question 1 0 Alayna Chapman assessment of judgment and insight E&M intact [facility] " mental status examination: orientation E&M oriented to time, place, and person [facility] " assessment of mood and affect E&M anxious, depressed mood [facility] " Generalized Anxiety Disorder Questionnaire - Question [...] assessment, process able to abstract, goal-directed, logical Tomaronald Mcclellandez " mental status assessment, sensorium alert, attentive, clear Toma Woods " mood (mental status exam) depressed Toma Woods " mental status assessment, speech activity normal flow, normal pace, normal pressure, normal rate, normal tone, normal volume, spontaneous Toma Woods " mental status assessment, motor activity normal gait, normal posture Toma Mcclellandez " behavior (mental status exam) appropriate, candid, cooperative, good eye contact, polite, responsive, tearful Toma Woods " mental appearance (mental status exam) adequate hygiene, appropriate dress, looks like stated age, neat Toma Woods " delusion No Toma Mcclellandez " hallucinations none Toma Mcclellandez assessment of mood and affect E&M anxious, depressed mood [facility] " assessment of judgment and insight E&M intact [facility] " mental status examination: orientation E&M oriented to time, place, and person [facility] " If any problems checked, how difficult [...] assessment of judgment and insight E&M intact [facility] " mental status examination: orientation E&M oriented to time, place, and person [facility] " assessment of mood and affect E&M no depression, anxiety, or agitation [facility] " Generalized Anxiety Disorder Questionnaire - Question 2 0 Stephanie Isabel " Generalized Anxiety Disorder Questionnaire - Question 1 0 Stephanie Isabel Generalized Anxiety Disorder Questionnaire - Question 2 0 Nupur Chong " Generalized Anxiety Disorder Questionnaire - Question 1 0 Nupur Chong mental status examination: recall E&M intact for recent and remote events [facility] " assessment of judgment and insight E&M intact [facility]abi[facility]cojos ej [facility] " mental status examination: orientation E&M oriented to time, place, and person [facility] " assessment of mood and affect E&M no depression, anxiety, or agitation [facility] " Generalized Anxiety Disorder Questionnaire - Question [...] E&M intact for recent and remote events [facility] " mental status examination: orientation E&M oriented to time, place, and person [facility] " assessment of judgment and insight E&M intact [facility] " assessment of mood and affect E&M no depression, anxiety, or agitation [facility] j [facility] " Generalized Anxiety Disorder Questionnaire - Question 2 0 Taina Gu " Generalized Anxiety Disorder Questionnaire - Question 1 0 Taina uG Generalized Anxiety Disorder Questionnaire - Question 2 [...] Disorder Questionnaire - Question 4 3 Francesca Hammondsierrez " Generalized Anxiety Disorder [...] name Policy type / Coverage type Covered libertarian ID [employer] Medicare HMO Medicare HMO [id number] ADVANCE DIRECTIVES No Information Available TREATMENT PLAN [...] Stick Glucose Est Patient Exp Problem - 21955 Est Patient Exp Problem - 20897 Est Patient Detailed - 29615 New Patient Intermediate Opth - 86825 Finger Stick Glucose Ear Irrigation Est Patient Exp Problem - 63935 Est Patient Exp Problem - 43634 Retinal Screening Est Patient Well Exam (40 - 64 Yrs) - 71239 Est Patient Detailed - 84319 Est Patient Exp Problem - 97973 Est Patient Exp Problem - 95605 New Patient Comprehensive - 09822 Glucose Stick Est Patient Exp Problem - 64536 Glucose Stick Est Patient Exp Problem - 89046 Prescription Assistance (Non-HIV) Glucose Stick Est Patient Exp Problem - 79052 Endocrinology - Adult - [facility] HEMOGLOBIN A1C - In House Est Patient Exp Problem - 79081 Est Patient Detailed - 04457 Est Patient Exp Problem - 31283 Est Patient Detailed - 13463 IB Assessment - Grab Jack Worker Diagnostic evaluation (no medical) - 18061 Integrated Behavioral Health Assessment (IBH) Est Patient Exp Problem - 31272 Est Patient Detailed - 50011 Ofc Vst, Est Level V Est Patient Exp Problem - 27556 Est Patient Exp Problem - 60629 Ofc Vst, Est Level IV Est Patient Exp Problem - 48336 Ofc Vst, Est Level V Est Patient Exp Problem - 13952 Est Patient Detailed - 31684 Est Patient Detailed - 08267 ALBUTEROL INHAL ADMIN THRU DME 1MG Est Patient Detailed - 83642 Est Patient Exp Problem - 39408 Est Patient Exp Problem - 95010 Ear Irrigation Est Patient Exp Problem - 96475 Ofc Vst, Est Level III Est Patient Exp Problem - 75015 HISTORY OF PROCEDURES Procedure Date Procedure Name Provider Procedure Notes Status Finger Stick Glucose Gill Villafuerte completed New Patient Intermediate Opt - 04572 Satinder Harman completed Finger Stick Glucose Satinder Harman completed Ear Irrigation Satinder Harman completed Glucose Stick Gill Villafuerte completed Glucose Stick Satinder Harman completed Glucose Stick Gill Villafuerte completed HEMOGLOBIN A1C - In House Comfort Trevino completed IB Assessment - Grab Jack Worker Toma Woods completed Diagnostic evaluation (no medical) - 85832 Toma Woods completed ALBUTEROL INHAL ADMIN THRU DME 1MG Deniz Brown completed Ear Irrigation Thea Junior completed GOALS No Information Available [facility] No Information Available
--- OUTSIDE RECORDS SUMMARY | 2019-09-25 17:40 | XMS REPORT ---
Author Author Admin, [place] Organization Unknown Address Unknown Phone Unavailable PROBLEMS Condition Status Date Provider Notes Hypokalemia, mild active Edward Magañaian [place] Chronic pain syndrome active Edward Roa [place] Cerumen impaction, bilateral active Edward Magañaian [place] Well woman exam active Edward Magañaian [place] BMI 50.0-59.9 active Edward Baptism [place] BMI 60.0-69.9, adult completed - Edward [...] active Toma Woods Suicidal ideation active Edward Boyceuife Depression, major active Edward [place] COPD with exacerbation active Edward [place] BMI 50.0-59.9 completed - Tiny Vazquez Mckeon Chronic bronchitis active Edward Whiteabuinasir Breast abnormal findings active Edward [place] Otitis [...] NICOTINE ADDICTION active Sharpe Vo COPD active Sharpe Vo ENCOUNTERS Date Type Provider Location Encounter Diagnosis - Ambulatory Encounter Kimberly Gagnon [place] UNK - [facility] - [facility]ulatory Encounter Edward Boyceuinasir [place] [facility] UNK - Ambulatory Encounter Edward [place] Edward Roa [place] [facility] UNK - Ambulatory Encounter Gill Florezwlinda Roa [place] Edward Roa [place] Francesca Ernesto Diana [facility] UNK - Ambulatory Encounter Comfort Ellsworth [facility]Adherence, [facility] UNK - Ambulatory Encounter Comfort Marroquin [facility] UNK - Ambulatory Encounter Edward Whiteabuinasir [place] [facility] - [facility]ulatory Encounter Comfort Hernandez MedAdherence [facility] UNK - Ambulatory Encounter [facility] UNK - Ambulatory Encounter Fax Status [facility] UNK - Ambulatory Encounter F[facility] - Ambulatory Encounter Edward Whiteabuinasir Roa [place] LinkLogic [facility] UNK - Ambulatory Encounter Satinder Roa [place] Edward Roa [place] [facility] Hypokalemia, mild - Ambulatory Encounter Edward Whiteabuinasir Roa [place] [facility] UNK - Ambulatory Encounter LSJ Lab Support Desktop LinkLogic Edward Roa [place] Edward Baptism [place] [facility] UNK - Ambulatory Encounter Fax Status LinkLogic [facility] UNK - Ambulatory Encounter Fax Status LinkLogic [facility] UNK - Ambulatory Encounter F[facility] UNK - Ambulatory Encounter Fax [facility] UNK - Ambulatory Encounter Edward Magañaian [place] Edward Baptism [place] [facility] UNK - Ambulatory Encounter Edward Roa [place] Gautamwlinda Baptism [place] [facility] UNK - Ambulatory Encounter Chuodilia Roa [place] Gautamwlinda Baptism [place] [facility] UNK - Ambulatory Encounter Satinder Roa [place] Edward Baptism [place] Sheryl Odonnell [facility] UNK - Ambulatory Encounter Comfort Pedersen [facility]herence [facility] UNK - Ambulatory Encounter Comfort Christianson [facility]herence [facility] UNK - Ambulatory Encounter Tiara Christianson MedAdherence [facility] UNK - Ambulatory Encounter Edward [place] Edward Magañaian [place] [facility] - [facility] UN[facility] - Ambulatory Encounter Chuodilia Baptism [place] Edward Baptism [place] LinkLogic [facility] UNK - Ambulatory Encounter Comfort [facility]on [facility] UNK - Ambulatory Encounter Chuodilia Baptism [place] Chuodilia Baptism [place] [facility] UNK - Ambulatory Encounter Chukkavin Baptism [place] Edward Baptism [place] [facility] UNK - Ambulatory Encounter Chuodilia Baptism [place] Edward Baptism [place] [facility] UNK - Ambulatory Encounter Satinder Leon Baptism [place] Chuvidhyawlinda Baptism [place] [facility] Chronic pain syndrome - Ambulatory Encounter Chuodilia Baptism [place] Gautamwlinda Baptism N[place] [facility] UNK - Ambulatory Encounter LSJ Lab Support Desktop LinkLogic Edward Baptism [place] Chuvidhyawlinda Baptism N[place] [facility] UNK - Ambulatory Encounter Chuodilia Baptism [place] Gautamwlinda Baptism N[place] [facility] UNK - Ambulatory Encounter Chuodilia Baptism [place] Gautamwlinda Baptism [place] [facility] UNK - Ambulatory Encounter Comfort Leon Baptism Nnab[place]asir Roa [place] Osorio Benítez [facility] Well woman examCerumen impaction, bilateral - Ambulatory Encounter Satinder Christianson [facility]herence [facility] UNK - Ambulatory Encounter Satinderchristopher Christianson MedAdherence Yermojimbo Gagnon [place] UNK - Ambulatory Encounter Satinder Christianson MedAdherence Chukwuemejose j Magañaian [place] Edward Roa [place] Eusebia Gagnon [facility] UNK - Ambulatory Encounter Satinder Christianson MedAdherence [facility] UNK - Ambulatory Encounter Tiara Christianson [facility] UNK - Ambulatory Encounter Edward Roa [place] Jamarkwlinda Baptism [place] LinkLogic [facility] UNK - Ambulatory Encounter Edward [place] Jamarkwuemejose j Baptism [place] LinkLogic [facility] UNK - Ambulatory Encounter Satinder Christianson MedAdherence [facility] UNK - Ambulatory Encounter Satinder Harman LinkLogic [facility] UNK - Ambulatory Encounter Fax Status LinkLogic [facility] UNK - Ambulatory Encounter Fax Status LinkLogic [facility] UNK - Ambulatory Encounter Fax Status LinkLogic [facility] UNK - Ambulatory Encounter Fax Status LinkLogic [facility] UNK - Ambulatory Encounter Fax Status [facility] UNK - Ambulatory Encounter Fax Status [facility] UNK - Ambulatory Encounter Satinder Harman Tamiko Hamedena [facility] UNK - Ambulatory Encounter Tiara Christianson MedAdherence Satinder Engel [facility] Contact Center UNK - Ambulatory Encounter Kimberly Whiteabjaimie Whiteabjaimie [facility] Contact Center UNK - Ambulatory Encounter Satinder Christianson MedAdherence [facility] UNK - Ambulatory Encounter Satinder Harman [facility] UN[facility] - Ambulatory Encounter Fax Status [facility] UNK - Ambulatory Encounter Yonnydarryl Sierra Tiara Christianson Med[facility]herence [facility] UNK - Ambulatory Encounter Edward [place] Edward Baptism [place] LinkLogic [facility] UNK - Ambulatory Encounter Edward Baptism [place] Edward Baptism [place] LinkLogic [facility] UNK - Ambulatory Encounter Edward Baptism Cindyabuife Edward Baptism [place] [facility] UNK - Ambulatory Encounter Edward Magañaian Cindyabuife Edward Baptism [place] [facility] UNK - Ambulatory Encounter Chukwuemeka Baptism [place] Jamarkwuekathya Roa [place] [facility] UNK - Ambulatory Encounter Lo Brown Chalo Roldankwuemejose j Whiteabuinasir Roldankwuekathya Roa [place] [facility] BMI 60.0-69.9, adultBMI 50.0-59.9 - Ambulatory Encounter Alayna Nava [facility] UNK - Ambulatory Encounter Kayla Ruel [facility] UNK - Ambulatory Encounter Kayla Ruel [facility] UNK - Ambulatory Encounter Edward Whiteabjaimie Roldankwuekathya Roa [place] Kayla Lipscomb [facility] UNK - Ambulatory Encounter Satinder Christianson MedAdherence Kayla Florezwlinda Whiteabuinasir Roldankwuemejose j [place] Jaden Reich [facility] UNK - Ambulatory Encounter Fax Status [facility] UNK - Ambulatory Encounter Fax Status [facility] UNK - Ambulatory Encounter Fax Status [facility] UNK - Ambulatory Encounter Fax Status [facility] UNK - Ambulatory Encounter Bhavya Pedersen MedAdherence Clementine Velasquez [facility] UNK - Ambulatory Encounter Edward Whiteabuife [facility] UNK - Ambulatory Encounter Edward Whiteabuinasir [place] [facility] UNK - Ambulatory Encounter Edward Whiteabuinasir Leon Baptism [place] [facility] UNK - Ambulatory Encounter Comfort Roa [place] Edward Baptism [place] Hafsa Will [facility] Dyspnea at restCHF exacerbation - Ambulatory Encounter Tiny Vazquez Mckeon Tiny Vazquez Mckeon [facility] UNK - Ambulatory Encounter Tiny Vazquez Mckeon Tiny Vazquez Mckeon Violette Yuri [facility] BMI 50.0-59.9BMI 60.0-69.9, adult - Ambulatory Encounter Kayla Lipscomb [facility] UNK - Ambulatory Encounter Satinder Christianson [facility] Francesca Potts [facility] UNK - Ambulatory Encounter Violette Yuri Lipscomb [facility] UNK - Ambulatory Encounter Edward Roa Nn[place]uinasir Leon Baptism [place] [facility] UNK - Ambulatory Encounter Edward Baptism [place] Edward Baptism [place] [facility] UNK - Ambulatory Encounter Edward Baptism [place] Edward Baptism [place] [facility] UNK - Ambulatory Encounter Edward Baptism Cindyabuinasir Leon Baptism Cindyabuife [facility] UNK - Ambulatory Encounter Edward Baptism [place] Chuodilia Baptism [place] [facility] UNK - Ambulatory Encounter Gill Florezwuekathya Baptism [place] Edward Baptism [place] Violette Yuri Will [facility] Acute upper respiratory infection - Ambulatory Encounter Bhavya Pedersen MedAdherence [facility] UNK - Ambulatory Encounter Satinder Harman LinkLogic [facility] UNK - Ambulatory Encounter Bhavya Pedersen [facility] UNK - Ambulatory Encounter Comfort Trevino [facility] - Ambulatory [facility] - Ambulatory Encounter Fax Status [facility] UNK - Ambulatory Encounter Fax Status [facility] UNK - Ambulatory Encounter Fax Status [facility] UNK - Ambulatory Encounter Alayna Chapman [facility] UNK - Ambulatory Encounter Edward Baptism [place] Edward Baptism [place] [facility] UNK - Ambulatory Encounter Edward Baptism [place] Edward Baptism [place] [facility] UNK - Ambulatory Encounter Edward Baptism [place] Edward Baptism N[place] [facility] UNK - Ambulatory Encounter Satinder Klein Chukwuemeka Baptism [place] Chukwuemejose j Baptism [place] Priya Mars [facility] UNK - Ambulatory Encounter Parris Oleary [facility] UNK - Ambulatory Encounter Chukwuemejose j Baptism [place] Chukwuemejose j Baptism [place] LinkLogic [facility] UNK - Ambulatory Encounter Bhavya Bermudezo MedAdherence Kirsten Ibarra [place]wu[place] Baptism [place] Chukwuemejose j Baptism [place] Raysa Potts [facility] Contact Center UNK - Ambulatory Encounter Chukwuemejose j Baptism [place] Chukwuemejose j Baptism Nn[place] [facility] UNK - Ambulatory Encounter Chukwuemejose j Baptism [place] Chukwuemeka Baptism N[place] [facility] UNK - Ambulatory Encounter Chukwuemejose j Baptism [place] Chukwuemeka Baptism Nnabu[place] [facility] UNK - Ambulatory Encounter Chukwuemejose j Baptism [place] Chukwuemejose j Baptism Nnabuife [facility] UNK - Ambulatory Encounter Gill Chapman Chukwuemejose j Baptism [place] Chukwuemejose j Baptism Nn[place]uife [facility] UNK - Ambulatory Encounter Bhavya Pedersen MedAdherence [facility] UNK - Ambulatory Encounter Kayla Serrano [facility] Contact Center UNK - Ambulatory Encounter Chukwuemeka Baptism [place] Chukwuemeka Baptism Nnabuife [facility] UNK - Ambulatory Encounter Tabjessica Donaldsonly [facility] UNK - Ambulatory Encounter Chukwuemejose j Baptism [place] Chukwuemeka Baptism Nnabuife [facility] UNK - Ambulatory Encounter Chukwuemeka Baptism [place] Chukwuemeka Baptism Nnabuife [facility] UNK - Ambulatory Encounter LSJ Lab Support Desktop LinkLogic Tab Leon Baptism [place] Chukwuemejose j Baptism Nnabuife [facility] UNK - Ambulatory Encounter Chukwuemejose j Baptism [place] Chukwuemeka Baptism Nnabuife [facility] UNK - Ambulatory Encounter Chukwuemejose j Baptism [place] Chukwuemeka Baptism Nnabuife [facility] UNK - Ambulatory Encounter Chukwuemeka Baptism [place] Chukwuemeka Baptism Nnabuife [facility] UNK - Ambulatory Encounter Comfort Christianson MedAdherence Chukwuemejose j Baptism [place]wuem[place]a Baptism [place] Marielena Reich [facility] Screening for diabetes mellitusScreening for lipid disorder - Ambulatory Encounter Chukwuemejose j Baptism [place] Chukwuemeka Baptism Nnabuife [facility] GERD - Ambulatory Encounter Chukwuekathya Baptism [place] Chukwuemeka Baptism [place] Stephanie Isabel [facility] UNK - Ambulatory Encounter Chukkavin Baptism [place] Edward Baptism Nn[place] [facility] UNK - Ambulatory Encounter Tab Leon Baptism [place] Chuodilia Baptism [place] Vivian Swansonunas [facility] UNK - Ambulatory Encounter Chukkavin Baptism [place] Edward Baptism Nn[place] [facility] UNK - Ambulatory Encounter Chukkavin Baptism [place] Gautamwlinda Baptism N[place] [facility] UNK - Ambulatory Encounter Chukkavin Baptism [place] Chukwlinda Baptism N[place] [facility] UNK - Ambulatory Encounter Comfort Leon Baptism [place] Chukwlinda Baptism N[place]uife [facility] Diabetes mellitus type II - Ambulatory Encounter Chuodilia Baptism [place] Chuvidhyawuekathya Baptism [place] LinkLogic [facility] UNK - Ambulatory Encounter Chukkavin Baptism [place] Chukwlinda Baptism [place] LinkLogic [facility] UNK - Ambulatory Encounter Loly Winslow [facility] UNK - Ambulatory Encounter Chukkavin Baptism [place] Gautamwlinda Baptism [place] LinkLogic [facility] UNK - Ambulatory Encounter Chuodilia Baptism [place] Gautamwlinda Baptism N[place] [facility] UNK - Ambulatory Encounter Chukkavin Baptism [place] Chuodilia Baptism N[place] [facility] UNK - Ambulatory Encounter Chuodilia Baptism [place] Chuodilia Baptism Nn[place]ife [facility] UNK - Ambulatory Encounter Chuodilia Baptism [place] Edward Baptism N[place] [facility] UNK - Ambulatory Encounter Satinder Florezwlinda Baptism [place] Edward Baptism N[place] [facility] UNK - Ambulatory Encounter Tiara Christianson MedAdherence [facility] UNK - Ambulatory Encounter Bhavya Pedersen MedAdherence [facility] UNK - Ambulatory Encounter Bhavya Pedersen MedAdherence LinkLogic [facility] UNK - Ambulatory Encounter Titi Kaitlynn Titi Kaitlynn LinkLogic [facility] UNK - Ambulatory Encounter Chuodilia Baptism [place] Edward Baptism [place] LinkLogic [facility] UNK - Ambulatory Encounter Chuodilia Baptism [place] Edward Baptism [place] LinkLogic [facility] UNK - Ambulatory Encounter Chuodilia Baptism [place] Edward Baptism N[place] [facility] UNK - Ambulatory Encounter Chukwuemeka Baptism [place] Edward Baptism Nn[place]uife [facility] UNK - Ambulatory Encounter Edward Baptism [place] Chuodilia Baptism N[place] [facility] UNK - Ambulatory Encounter Edward Baptism [place] Edward Baptism Nnabuife [facility] UNK - Ambulatory Encounter Comfort Roldanodilia Baptism abuiMer[facility] Merced Community Campuskshericelinda Baptism abuiMissouri Southern Healthcareo [facility] Abdominal distensionAbdominal pain, chronicAscitesUrinary retention - Ambulatory Encounter Tiara Christianson MedAdherence [facility] UNK - Ambulatory Encounter Tiara Christianson MedAdherence [facility] UNK - Ambulatory Encounter Tiara Christianson MedAdherence [facility] UNK - Ambulatory Encounter Comfort Trevino [facility] UNK - Ambulatory Encounter Mae Rodney [facility] UNK - Ambulatory Encounter Fax Status LinkLogic [facility] UNK - Ambulatory Encounter Fax Status [facility] UNK - Ambulatory Encounter Fax Status [facility] UNK - Ambulatory Encounter Fax Status [facility] UNK - Ambulatory Encounter Fax Status [facility] UNK - Ambulatory Encounter Fax Status [facility] UNK - Ambulatory Encounter Chukwlinda Baptism [place] Jamarkwuekathya Baptism Nnabuife [facility] UNK - Ambulatory Encounter Chukwlinda Baptism [place] Chukwlinda Baptism Nnabuife [facility] UNK - Ambulatory Encounter Chukwlinda Baptism [place] Chukwlinda Baptism Nnabuife [facility] UNK - Ambulatory Encounter Toma Woods [facility] Mood Disorder, NOS - Ambulatory Encounter Lo Florezwuekathya Baptism [place] Edward Baptism [place] Vivian Matthews [facility] Depression, majorSuicidal ideation - Ambulatory Encounter Comfort Trevino LinkLog [facility] UNK - Ambulatory Encounter Tiara Winslow [facility] UNK - Ambulatory Encounter Bhavya Pedersen MedAdherence [facility] UNK - Ambulatory Encounter Bhavya Pedersen MedAdherence LinkLogic [facility] UNK - Ambulatory Encounter Chukwlinda Baptism [place] Jamarkwuekathya Baptism Nnabuife [facility] UNK - Ambulatory Encounter Chukwlinda Baptism [place] Jamarkwuekathya Baptism Nnabuife [facility] UNK - Ambulatory Encounter Chukwlinda Baptism [place] Gautamwlinda Baptism Nnabuife [facility] UNK - Ambulatory Encounter Edward Baptism Cindyabuife Edward Baptism Nnabuife [facility] UNK - Ambulatory Encounter Edward Baptism [place] Gautamwlinda Baptism Nnabuife [facility] UNK - Ambulatory Encounter Gill Florezwlinda Baptism [place] Gautamwlinda Baptism Nnabuife [facility] UNK - Ambulatory Encounter Loly Winslow [facility] UNK - Ambulatory Encounter Tiara Christianson [facility] - [facility] Encounter Edward Whiteabuinasir Roa Nnabuife [facility] UNK - Ambulatory Encounter Bhavya Pedersen MedAdherence [facility] UNK - Ambulatory Encounter Bhavya Pedersen MedAdherence LinkLogic [facility] UNK - Ambulatory Encounter Edward Whiteabjaimie [place] Tab Matthews [facility] UNK - Ambulatory Encounter Comfort Trevino LinkLog [facility] UNK - Ambulatory Encounter Edward [place] Edward Baptism Nnabuife [facility] UNK - Ambulatory Encounter Edward Whiteabuinasir Leon Baptism Nnabuife [facility] UNK - Ambulatory Encounter Edward [place] Edward Baptism Nnabuife [facility] UNK - Ambulatory Encounter Edward Whiteabuinasir Leon Baptism Nnabuife [facility] UNK - Ambulatory Encounter Comfort Leon Baptism [place] Edward Baptism Nnabuife [facility] COPD with exacerbation - Ambulatory Encounter Tiara Christianson MedAdherence [facility] UNK - Ambulatory Encounter Tiara Christianson MedAdherence Loly Winslow [facility] - Ambulatory Encounter Tiara Christianson MedAdherence [facility] UNK - Ambulatory Encounter Edward Whiteabuinasir Leon Baptism Nnabuife [facility] UNK - Ambulatory Encounter Edward Whiteabuinasir Leon Baptism Nnabuife [facility] UNK - Ambulatory Encounter Gill [place]uife Edward Baptism Nnabuife [facility] UNK - Ambulatory Encounter Loly Winslow Donna Sabiha [facility] UNK - Ambulatory Encounter Edward [place] Edward Baptism [place] LinkLogic [facility] UNK - Ambulatory Encounter Loly Winslow Donna Sabiha [facility] UNK - Ambulatory Encounter Fax Status [facility] UNK - Ambulatory Encounter Fax Status [facility]ic [facility] UNK - Ambulatory Encounter Fax Status [facility]ic [facility] UNK - Ambulatory Encounter Fax Status Link[facility]ic [facility] UNK - Ambulatory Encounter Fax Status [facility]ic [facility] UNK - Ambulatory Encounter Fax Status [facility]ic [facility] UNK - Ambulatory Encounter Titi Kaitlynn Titi Kaitlynn [facility] UNK - Ambulatory Encounter Titi Kaitlynn Titi Kaitlynn [facility] UNK - Ambulatory Encounter Titi Kaitlynn Titi Kaitlynn [facility] UNK - Ambulatory Encounter Lo Gu Titi Kaitlynn Titi Kaitlynn [facility] MUSCLE SPASMEAR PAIN, RIGHTCandidal vaginitisOtitis media, acute - Ambulatory Encounter Satinder Gu [facility] UNK - Ambulatory Encounter Fax Status [facility]Logic [facility] UNK - Ambulatory Encounter Fax Status LinkLogic [facility] UNK - Ambulatory Encounter Fax Status LinkLogic [facility] UNK - Ambulatory Encounter Bhavya Palacio [facility] UNK - Ambulatory Encounter Edward Whiteabjaimie Whiteabjaimie [facility] UNK - Ambulatory Encounter Satinder Matthews [facility] Breast abnormal findingsChronic bronchitisBMI 50.0-59.9 - Ambulatory Encounter Comfort Trevino LinkLogic [facility] UNK - Ambulatory Encounter Tiara Christianson MedAdherence [facility] UNK - Ambulatory Encounter Tiara Christianson MedAdherence LinkLogic [facility] UNK - Ambulatory Encounter Bhavya Pedersen MedAdherence [facility] UNK - Ambulatory Encounter Bhavya Pedersen MedAdherence LinkLogic [facility] UNK - Ambulatory Encounter Madhumita Sierra [facility] UNK - Ambulatory Encounter Madhumita Sierra LinkLogic [facility] UNK - Ambulatory Encounter Bhavya Pedersen MedAdherence Stephanie Hernandez [facility] UNK - Ambulatory Encounter Madhumita Sierra [facility] UNK - Ambulatory Encounter Madhumita Sierra [facility] UNK - Ambulatory Encounter Madhumita Sierra [facility] UNK - Ambulatory Encounter Nupur Chong [facility] UNK - Ambulatory Encounter Nupur Chong [facility] UNK - Ambulatory Encounter Edwin Umana [facility] UNK - Ambulatory Encounter Edwin Umana [facility] UNK - Ambulatory Encounter Edwin Umana [facility] UNK - [facility] MORBID OBESITYOtitis media, acute - Ambulatory Encounter Fabricio Beard [facility] UNK - Ambulatory Encounter Maddarryl Sierra [facility] UNK - Ambulatory Encounter Lo Esquivel Francesca Gamino [facility] Candidal vaginitis - Ambulatory Encounter [facility] - [facility]ulatory Encounter Breana Rosairo [facility] UNK - Ambulatory Encounter [facility] - Ambulatory Encounter Maryjessica Soto [facility] UNK - Ambulatory Encounter Fabricio Beard [facility] UNK - Ambulatory Encounter Vivianabrandt Hector [facility] UNK - Amb[facility] UNK - Ambulatory Encounter Fabricio Beard [facility] UNK - Ambulatory Encounter Gita Dewey [facility] UNK - Ambulatory Encounter Comfort Trevino [facility] UNK - Ambulatory Encounter Bhavya Pedersen José Miguel [facility] UNK - Ambulatory Encounter Comfort Trevino [facility] UNK - Ambulatory Encounter Carmelina Gu [facility] UNK - Ambulatory Encounter Jan Johnson [facility] D[facility] Nurse Practitioner UNK - Ambulatory Encounter Fax Status [facility] UNK - Ambulatory Encounter Fax Status [facility] UNK - Ambulatory Encounter Fax Status [facility] UNK - Ambulatory Encounter Deniz Lira [facility] UNK - Ambulatory Encounter Bhavya Pedersen [facility] UNK - Ambulatory Encounter Comfort Trevino [facility] UNK - Ambulatory Encounter Comfort Trevino [facility] UNK - Ambulatory Encounter Comfort Trevino [facility] UNK - Ambulatory Encounter Fax Status [facility] UNK - Ambulatory Encounter Fax Status [facility] UNK - Ambulatory Encounter Comfort Trevino [facility] UNK - Ambulatory Encounter Fax Status [facility] UNK - Ambulatory Encounter Fax Status [facility] UNK - Ambulatory Encounter Comfort Trevino [facility] UNK - Ambulatory Encounter Comfort Trevino [facility] UNK - Ambulatory Encounter Comfort Trevino [facility] UNK - Ambulatory Encounter Comfort Trevino [facility] UNK - Ambulatory Encounter Kimberly Trevino Jenny Feldman [facility] UNK - Ambulatory Encounter Kimberly Trevino [facility] UNK - Ambulatory Encounter Tab Chang [facility] UNK - Ambulatory Encounter Fax Status [facility] UNK - Ambulatory Encounter Fax Status [facility] UNK - Ambulatory Encounter Fax Status [facility] UNK - Ambulatory Encounter Kimberly Trevino [facility] UNK - Ambulatory Encounter Comfort Trevino [facility] UNK - Ambulatory Encounter Comfort Trevino [facility] - Ambulatory Encounter Fax Status [facility] UNK - Ambulatory Encounter Jenny Feldman [facility] UNK - Ambulatory Encounter Fax Status [facility] UNK - Ambulatory Encounter Fax Status [facility] UNK - Ambulatory Encounter Comfort Trevino [facility] UNK - Ambulatory Encounter Kimberly Trevino [facility] UNK - Ambulatory Encounter Comfort Trevino [facility] Kimberly Jorgensen [facility] UNK - Ambulatory Encounter [facility] - Ambulatory Encounter Gosia Trevino [facility] UNK - Ambulatory Encounter Comfort Trevino [facility] Gosia Gerber [facility] UNK - Ambulatory Encounter Comfort Tellez Scripp[facility] CHRONIC OBSTRUCTIVE PULMONARY DISEASE, ACUTE EXACERBATIONCHFSLEEP APNEA - Ambulatory Encounter Gill [facility]te [facility] UNK - Ambulatory Encounter Fax Status [facility] UNK - Ambulatory Encounter Fax Status [facility] UNK - Ambulatory Encounter Fax Status [facility] - [facility]ulatory Encounter Fax Status [facility] - Ambulatory Encounter Fax Status [facility] UNK - Ambulatory Encounter Fax Status [facility] UNK - Ambulatory Encounter Fax Status [facility] - Ambulatory Encounter Jenny [facility] - Ambulatory Encounter Thea Patitopala Thea Caputoserenakaylin Tellez Ward [facility] LOW BACK PAIN - Ambulatory Encounter Sabra Stephen [facility] UNK - Ambulatory Encounter Sabra Stephen [facility] UNK - Ambulatory Encounter Ernesto Gaffney [facility] DEPENDENT EDEMA, LEGS - Ambulatory Encounter Bhavya Pedersen [facility] UNK - Ambulatory Encounter Bhavya Pedersen [facility] UNK - Ambulatory Encounter Jonelle [facility] UNK - Ambulatory Encounter Jonelle [facility] UNK - Ambulatory Encounter Jonelle [facility] UNK - Ambulatory Encounter Jonelle [facility] UNK - Ambulatory Encounter Jonelle [facility] UNK - Ambulatory Encounter Malena Isabel [facility] UNK - Ambulatory Encounter Ernesto Mathtews [facility] EAR PAIN, RIGHTBLURRED VISIONHEARING DEFICIT - Ambulatory Encounter Druze Preload [facility] UNK - Ambulatory Encounter Druze Preload [facility] UNK - Ambulatory Encounter Druze Preload [facility] UNK - Ambulatory Encounter Druze Preload [facility] UNK - Ambulatory Encounter Druze Preload [facility] UNK - Ambulatory Encounter Druze Preload [facility] UNK - Ambulatory Encounter Druze Preload [facility] UNK - Ambulatory Encounter Druze Preload [facility] UNK - Ambulatory Encounter Druze Preload [facility] UNK - Ambulatory Encounter Druze Preload [facility] UNK - Ambulatory Encounter Druze Preload [facility] UNK - Ambulatory Encounter Druze Preload [facility] UNK - Ambulatory Encounter Druze Preload [facility] UNK - Ambulatory Encounter Druze Preload [facility] UNK - Ambulatory Encounter Druze Preload [facility] UNK - Ambulatory Encounter Druze Preload [facility] UNK - Ambulatory Encounter Druze Preload [facility] UNK - Ambulatory Encounter Druze Preload [facility] UNK - Ambulatory Encounter Druze Preload [facility] UNK - Ambulatory Encounter Druze Preload [facility] UNK - Ambulatory Encounter Druze Preload [facility] UNK - Ambulatory Encounter Druze Preload [facility] UNK - Ambulatory Encounter Druze Preload [facility] UNK - Ambulatory Encounter Druze Preload [facility] UNK - Ambulatory Encounter Druze Preload [facility] UNK - Ambulatory Encounter Druze Preload [facility] UNK - Ambulatory Encounter Druze Preload [facility] UNK - Ambulatory Encounter Druze Preload [facility] UNK - Ambulatory Encounter Druze Preload [facility] UNK - Ambulatory Encounter Druze Preload [facility] UNK - Ambulatory Encounter Druze Preload [facility] UNK - Ambulatory Encounter Druze Preload [facility] UNK - Ambulatory Encounter Druze Preload [facility] UNK - Ambulatory Encounter Druze Preload [facility] UNK - Ambulatory Encounter Druze Preload [facility] UNK - Ambulatory Encounter Druze Preload [facility] UNK - Ambulatory Encounter Druze Preload [facility] UNK - Ambulatory Encounter Druze Preload [facility] UNK - Ambulatory Encounter Druze Preload [facility] UNK - Ambulatory Encounter Druze Preload [facility] UNK - Ambulatory Encounter Druze Preload [facility] UNK - Ambulatory Encounter Druze Preload [facility] UNK - Ambulatory Encounter Druze Preload [facility] UNK - Ambulatory Encounter Druze Preload [facility] UNK - Ambulatory Encounter Druze Preload [facility] UNK - Ambulatory Encounter Druze Preload [facility] UNK - Ambulatory Encounter Druze Preload [facility] UNK - Ambulatory Encounter Druze Preload [facility] UNK - Ambulatory Encounter Druze Preload [facility] UNK - Ambulatory Encounter Druze Preload [facility] UNK - Ambulatory Encounter Druze Preload [facility] UNK - Ambulatory Encounter Druze Preload [facility] UNK - Ambulatory Encounter Druze Preload [facility] UNK - Ambulatory Encounter Druze Preload [facility] UNK - Ambulatory Encounter Druze Preload [facility] UNK - Ambulatory Encounter Druze Preload [facility] UNK - Ambulatory Encounter Druze Preload [facility] UNK - Ambulatory Encounter Druze Preload [facility] UNK - Ambulatory Encounter Druze Preload [facility] UNK - Ambulatory Encounter Druze Preload [facility] UNK - Ambulatory Encounter Druze Preload [facility] UNK - Ambulatory Encounter Druze Preload [facility] UNK - Ambulatory Encounter Druze Preload [facility] UNK - Ambulatory Encounter Druze Preload [facility] UNK - Ambulatory Encounter Druze Preload [facility] UNK - Ambulatory Encounter Druze Preload [facility] UNK - Ambulatory Encounter Druze Preload [facility] UNK - Ambulatory Encounter Druze Preload [facility] UNK - Ambulatory Encounter Sharpe Gulshan Sharpe Vo [facility] UNK - Ambulatory Encounter Druze Preload [facility] UNK - Ambulatory Encounter Druze Preload [facility] UNK - Ambulatory Encounter Druze Preload [facility] UNK - Ambulatory Encounter Druze Preload [facility] UNK - Ambulatory Encounter Druze Preload [facility] UNK - Ambulatory Encounter Druze Preload [facility] UNK - Ambulatory Encounter Druze Preload [facility] UNK - Ambulatory Encounter Druze Preload [facility] UNK - Ambulatory Encounter Druze Preload [facility] UNK - Ambulatory Encounter Druze Preload [facility] UNK - Ambulatory Encounter Druze Preload [facility] UNK - Ambulatory Encounter Druze Preload [facility] UNK - Ambulatory Encounter Druze Preload [facility] UNK - Ambulatory Encounter Druze Preload [facility] UNK - Ambulatory Encounter Druze Preload [facility] UNK - Ambulatory Encounter Druze Preload [facility] UNK - Ambulatory Encounter Druze Preload [facility] UNK - Ambulatory Encounter Druze Preload [facility] UNK - Ambulatory Encounter Druze Preload [facility] UNK - Ambulatory Encounter Druze Preload [facility] UNK - Ambulatory Encounter Druze Preload [facility] UNK - Ambulatory Encounter Druze Preload [facility] UNK - Ambulatory Encounter Druze Preload [facility] UNK - Ambulatory Encounter Druze Preload [facility] UNK - Ambulatory Encounter Druze Preload [facility] UNK - Ambulatory Encounter Druze Preload [facility] UNK - Ambulatory Encounter Druze Preload [facility] UNK - Ambulatory Encounter Druze Preload [facility] UNK - Ambulatory Encounter Druze Preload [facility] UNK - Ambulatory Encounter Druze Preload [facility] UNK - Ambulatory Encounter Druze Preload [facility] UNK - Ambulatory Encounter Druze Preload [facility] UNK - Ambulatory Encounter Druze Preload [facility] UNK - Ambulatory Encounter Druze Preload [facility] UNK - Ambulatory Encounter Druze Preload [facility] UNK - Ambulatory Encounter Druze Preload [facility] UNK - Ambulatory Encounter Druze Preload [facility] UNK - Ambulatory Encounter Druze Preload [facility] UNK - Ambulatory Encounter Druze Preload [facility] UNK - Ambulatory Encounter Druze Preload [facility] UNK - Ambulatory Encounter Druze Preload [facility] UNK - Ambulatory Encounter [facility] - [facility]ulatory Encounter Sharpe [facility] - [facility] UNK - Ambulatory Encounter Gill Macias [facility] Sharpe Vo [facility] UNK - Ambulatory Encounter Gill Dalton [facility] UNK - Ambulatory Encounter Annemarie Barbozauyen Gulshan Pedersen [facility] UNK - Ambulatory Encounter Gill Villafuerte [facility] UNK - Ambulatory Encounter Gill Orozco Noy Gill Orozco Davialice Annemarie Gutierrez [facility] COPDNICOTINE ADDICTIONSARCOIDOSISHYPERTENSIONMUSCLE SPASM - Ambulatory Encounter Ernesto Boothedward [facility] UNK VITAL SIGNS Date Observation Value Provider method used to obtain blood pressure automatic Francesca Lebron " Blood Pressure Position 01 sitting [facility] Lebron " blood pressure, site #1 left arm [facility] Lebron " oxygen saturation, oximetry 98 % [facility] Lebron " blood pressure, diastolic 84 mm[Hg] [facility] Lebron " blood pressure, systolic 135 mm[Hg] Francesca Lebron " respiratory rate E&M 18 /min Francesca Lebron " pulse rate E&M 98 /min Francesca Lebron " temperature site oral [facility] Lebron " temperature E&M 98.4 [degF] Francesca Lebron " weight E&M 321.80 lbs. Francesca Lebron " weight in kilograms E&M 146.27 kg [facility] Lebron " height in centimeters E&M 154.94 cm [facility] Lebron " height E&M 61 [in_i] Francesca M Lebron oxygen saturation, oximetry 94 % Nupur Chong " method used to obtain blood pressure automatic Nupur Chong " Blood Pressure Position 01 sitting Nupur Chong " blood pressure, site #1 left arm Nupur Chong " blood pressure, diastolic 81 mm[Hg] Nupur Chong " blood pressure, systolic 121 mm[Hg] Nupur Chong " respiratory rate E&M 25 /min Nupur Chong " pulse rate E&M 103 /min Nupur Chong " temperature E&M 97.9 [degF] Nupur Chong " weight E&M 320.20 lbs. Nuupr Chong " weight in kilograms E&M 145.55 kg Nupur Chong " height E&M 61 [in_i] Nupur Chong " height in centimeters E&M 154.94 cm Nupur Chong oxygen saturation, oximetry 94 % Stephanie Isabel " method used to obtain blood pressure automatic Stephanie Isabel " Blood Pressure Position 01 sitting Stephanie Isabel " blood pressure, site #1 left arm Stephanie Isabel " blood pressure, diastolic 80 mm[Hg] Stephanie Isabel " blood pressure, systolic 128 mm[Hg] Edward Roa Nnuife " respiratory rate E&M 17 /min Stephanie Isabel " pulse rate E&M 102 /min Stephanie Isabel " temperature site oral Stephanie Isabel " temperature E&M 98.3 [degF] Stephanie Isabel " weight E&M 312.40 lbs. Stephanie Isabel " weight in kilograms E&M 142 kg Stephanie Isabel " height E&M 61 [in_i] Stephanie Isabel " height in centimeters E&M 154.94 cm Stephanie Isabel oxygen saturation, oximetry 95 % Nupur Chong " method used to obtain blood pressure automatic Nupur Chong " Blood Pressure Position 01 sitting Nupur Chong " blood pressure, site #1 left arm Nupur Chong " blood pressure, diastolic 71 mm[Hg] Nupur Chong " blood pressure, systolic 113 mm[Hg] Nupur Chong " respiratory rate E&M 22 /min Nupur Chong " pulse rate E&M 96 /min Nupur Chong " temperature E&M 98.3 [degF] Nupur Chong " weight E&M 314.80 lbs. Nupur Chong " weight in kilograms E&M 143.09 kg Nupur Chong " height E&M 61 [in_i] Nupur Chong " height in centimeters E&M 154.94 cm Nupur Chong oxygen saturation, oximetry 94 % Nupur Chong " method used to obtain blood pressure automatic Nupur Chong " Blood Pressure Position 01 sitting Nupur Chong " blood pressure, site #1 left arm Nupur Chong " blood pressure, diastolic 80 mm[Hg] Nupur Chong " blood pressure, systolic 126 mm[Hg] Nupur Chong " respiratory rate E&M 29 /min Nupur Chong " pulse rate E&M 129 /min Nupur Chong " temperature E&M 98.2 [degF] Nupur Chong " weight E&M 317 lbs. Nupur Chong " weight in kilograms E&M 144.09 kg Nupur Chong " height E&M 61 [in_i] Nupur Chong " height in centimeters E&M 154.94 cm Nupur Chong oxygen saturation, oximetry 97 % Stephanie Isabel " method used to obtain blood pressure automatic Stephanie Isabel " Blood Pressure Position 01 sitting Stephanie Isabel " blood pressure, site #1 left arm Stephanie Isabel " blood pressure, diastolic 77 mm[Hg] Stephanie Isabel " blood pressure, systolic 124 mm[Hg] Stephanie Isabel " respiratory rate E&M 17 /min Stephanie Isabel " pulse rate E&M 112 /min Stephanie Isabel " temperature site oral Stephanie Isabel " temperature E&M 98.7 [degF] Stephanie Isabel " weight E&M 310.40 lbs. Stephanie Isabel " weight in kilograms E&M 141.09 kg Stephanie Isabel " height E&M 61 [in_i] Stephanie Isabel " height in centimeters E&M 154.94 cm Stephanie Chalo oxygen saturation, oximetry 90 % Hafsa Will " method used to obtain blood pressure automatic Hafsa Will " Blood Pressure Position 01 sitting Hafsa Will " blood pressure, site #1 left arm Hafsa Will " blood pressure, diastolic 81 mm[Hg] Hafsa Will " blood pressure, systolic 120 mm[Hg] Hafsa Will " respiratory rate E&M 25 /min Hafsa Will " pulse rate E&M 122 /min Hafsa Will " temperature site oral Hafsa Will " temperature E&M 99.5 [degF] Hafsa Will " weight E&M 330.13 lbs. Hafsa Will " weight in kilograms E&M 150.06 kg Hafsa Will " height E&M 61 [in_i] Hafsa Will " height in centimeters E&M 154.94 cm Hafsa Will oxygen saturation, oximetry 93 % Violette Pool " method used to obtain blood pressure automatic Violette Pool " Blood Pressure Position 01 sitting Violette Pool " blood pressure, site #1 right arm Violette Pool " blood pressure, diastolic 77 mm[Hg] Violette Pool " blood pressure, systolic 125 mm[Hg] Violette Pool " respiratory rate E&M 26 /min Violette Pool " pulse rate E&M 108 /min Violette Pool " temperature site oral Violette Pool " temperature E&M 98.4 [degF] Violette Pool " weight E&M 329 lbs. Violette Pool " weight in kilograms E&M 149.55 kg Violette Pool " height E&M 61 [in_i] Violette Pool " height in centimeters E&M 154.94 cm Violette Pool oxygen saturation, oximetry 95 % Hafsa Will " method used to obtain blood pressure automatic Hafsa Will " Blood Pressure Position 01 sitting Hafsa Will " blood pressure, site #1 left arm Hafsa Will " blood pressure, diastolic 70 mm[Hg] Hafsa Will " blood pressure, systolic 117 mm[Hg] Hafsa Will " respiratory rate E&M 24 /min Hafsa Will " pulse rate E&M 121 /min Hafsa Will " temperature site oral Hafsa Will " temperature E&M 98.5 [degF] Hafsa Will " weight E&M 329.38 lbs. Hafsa Will " weight in kilograms E&M 149.72 kg Hafsa Will " height E&M 61 [in_i] Hafsa Will " height in centimeters E&M 154.94 cm Hafsa Will oxygen saturation, oximetry 92 % Priya Jerad " blood pressure, diastolic 96 mm[Hg] Priya Jerad " blood pressure, systolic 129 mm[Hg] Priya Jerad " respiratory rate E&M 16 /min Priya Jerad " pulse rate E&M 109 /min Priya Jerad " temperature E&M 98.9 [degF] Priya Jerad " weight E&M 329 lbs. Priya Jerad " weight in kilograms E&M 149.55 kg Priya Jerad " method used to obtain blood pressure automatic Priya Jerad " Blood Pressure Position 01 sitting Priya Jerad " blood pressure, site #1 left arm Priya Jerad " temperature site oral Priya Jerad " height E&M 61 [in_i] Priya Jerad " height in centimeters E&M 154.94 cm Priya Jerad oxygen saturation, oximetry 93 % Alayna Chapman " method used to obtain blood pressure automatic Alayna Chapman " Blood Pressure Position 01 sitting Alayna Chapman " blood pressure, site #1 right arm Alayna Chapman " blood pressure, diastolic 58 mm[Hg] Alayna Chapman " blood pressure, systolic 110 mm[Hg] Alayna Chapman " respiratory rate E&M 20 /min Alayna Chapman " pulse rate E&M 112 /min Alayna Chapman " temperature site oral Alayna Chapman " temperature E&M 98.6 [degF] Alayna Chapman " weight E&M 325.80 lbs. Alayna Chapman " weight in kilograms E&M 148.09 kg Alayna Chapman " height E&M 61 [in_i] Alayna Chapman " height in centimeters E&M 154.94 cm Alayna Chapman oxygen saturation, oximetry 78 % Stephanie Isabel " method used to obtain blood pressure automatic Stephanie Isabel " Blood Pressure Position 01 sitting Stephanie Isabel " blood pressure, site #1 left arm Stephanie Isabel " blood pressure, diastolic 89 mm[Hg] Stephanie Isabel " blood pressure, systolic 123 mm[Hg] Stephanie Isabel " respiratory rate E&M 17 /min Stephanie Isabel " pulse rate E&M 130 /min Stephanie Isabel " temperature site oral Stephanie Isabel " temperature E&M 98.7 [degF] Stephanie Isabel " weight E&M 335.20 lbs. Stephanie Isabel " weight in kilograms E&M 152.36 kg Stephanie Isabel " height E&M 61 [in_i] Stephanie Isabel " height in centimeters E&M 154.94 cm Stephanie Isabel oxygen saturation, oximetry 94 % Alayna Chapman " method used to obtain blood pressure automatic Alayna Cahpman " Blood Pressure Position 01 sitting Alayna Chapman " blood pressure, site #1 right arm Alayna Chapman " blood pressure, diastolic 69 mm[Hg] Alayna Chapman " blood pressure, systolic 105 mm[Hg] Alayna Chapman " respiratory rate E&M 20 /min Alayna Chapman " pulse rate E&M 102 /min Alayna Chapman " temperature site oral Alayna Chapman " temperature E&M 98.4 [degF] Alayna Chapman " weight E&M 326.20 lbs. Alayna Chapman " weight in kilograms E&M 148.27 kg Alayna Chapman " height E&M 61 [in_i] Alayna Chapman " height in centimeters E&M 154.94 cm Alayna Chapman oxygen saturation, oximetry 92 % Alayna Chapman " method used to obtain blood pressure automatic Alayna Chapman " Blood Pressure Position 01 sitting Alayna Chapman " blood pressure, site #1 right arm Alayna Chapman " blood pressure, diastolic 74 mm[Hg] Alayna Chapman " blood pressure, systolic 125 mm[Hg] Alayna Chapman " respiratory rate E&M 20 /min Alayna Chapman " pulse rate E&M 91 /min Alayna Chapman " temperature site oral Alayna Chapman " temperature E&M 98.7 [degF] Alayna Chapman " weight E&M 325.20 lbs. Alayna Chapman " weight in kilograms E&M 147.82 kg Alayna Chapman " height E&M 61 [in_i] Alayna Chapman " height in centimeters E&M 154.94 cm Alayna Chapman oxygen saturation, oximetry 91 % Alayna Chapman " method used to obtain blood pressure automatic Alayna Chapman " Blood Pressure Position 01 sitting Alayna Chapman " blood pressure, site #1 right arm Alayna Chapman " blood pressure, diastolic 79 mm[Hg] Alayna Chapman " blood pressure, systolic 105 mm[Hg] Alayna Chapman " respiratory rate E&M 19 /min Alayna Chapman " pulse rate E&M 99 /min Alayna Chapman " temperature site oral Alayna Chapman " temperature E&M 98.5 [degF] Alayna Chapman " weight E&M 333.60 lbs. Alayna Chapman " weight in kilograms E&M 151.64 kg Alayna Chapman " height E&M 61 [in_i] Alayna Chapman " height in centimeters E&M 154.94 cm Alayna Chapman oxygen saturation, oximetry 96 % Vivian Sin " blood pressure, diastolic 76 mm[Hg] Vivian Sin " blood pressure, systolic 118 mm[Hg] Vivian Sin " respiratory rate E&M 22 /min Vivian Sin " pulse rate E&M 108 /min Vivian Sin " temperature E&M 98.6 [degF] Vivian Sin " weight E&M 226 lbs. Vivian Sin " weight in kilograms E&M 102.73 kg Vivian Sin " method used to obtain blood pressure automatic Vivian Sin " Blood Pressure Position 01 sitting Vivian Sin " blood pressure, site #1 left arm Vivian Sin " temperature site oral Vivian Sin " height E&M 61 [in_i] Vivian Sin " height in centimeters E&M 154.94 cm Vivian Sni oxygen saturation, oximetry 96 % Stephanie Isabel " method used to obtain blood pressure automatic Stephanie Isabel " Blood Pressure Position 01 sitting Stephanie Isabel " blood pressure, site #1 left arm Stephanie Isabel " blood pressure, diastolic 73 mm[Hg] Stephanie Isabel " blood pressure, systolic 110 mm[Hg] Stephanie Isabel " respiratory rate E&M 22 /min Stephanie Chalo " pulse rate E&M 105 /min Stephanie Chalo " temperature site oral Stephanie Chalo " temperature E&M 98.1 [degF] Stephanie Isabel " weight E&M 317 lbs. Stephanie Chalo " weight in kilograms E&M 144.09 kg Stephanie Chalo " height E&M 61 [in_i] Stephanie Chalo " height in centimeters E&M 154.94 cm Stephanie Isabel oxygen saturation, oximetry 92 % Nupur Chong " method used to obtain blood pressure automatic Nupur Chong " Blood Pressure Position 01 sitting Nupur Chong " blood pressure, site #1 left arm Nupur Chong " blood pressure, diastolic 70 mm[Hg] Nupur Chong " blood pressure, systolic 116 mm[Hg] Nupur Chong " respiratory rate E&M 22 /min Nupur Chong " pulse rate E&M 89 /min Nupur Chong " temperature E&M 98.2 [degF] Nupur Chong " weight E&M 314 lbs. Nupur Chong " weight in kilograms E&M 142.73 kg Nupur Chong " height E&M 61 [in_i] Nupur Chong " height in centimeters E&M 154.94 cm Nupur Chong oxygen saturation, oximetry 91 % Taina Gu " method used to obtain blood pressure automatic Taina Gu " Blood Pressure Position 01 sitting Taina Gu " blood pressure, site #1 left arm Taina Riccardo " blood pressure, diastolic 70 mm[Hg] Taina Gu " blood pressure, systolic 109 mm[Hg] Taina Gu " respiratory rate E&M 20 /min Taina Gu " pulse rate E&M 98 /min Taina Gu " temperature site oral Tainakaylin Gu " temperature E&M 98.1 [degF] Taina Gu " weight E&M 306.20 lbs. Taina Gu " weight in kilograms E&M 139.18 kg Taina Gu " height in centimeters E&M 154.94 cm Taina Gu " height E&M 61 [in_i] Taina Gu oxygen saturation, oximetry 92 % Taina Gu " method used to obtain blood pressure automatic Taina Gu " Blood Pressure Position 01 sitting Taina Riccardo " blood pressure, site #1 left arm Taina Riccardo " blood pressure, diastolic 82 mm[Hg] Taina Gu " blood pressure, systolic 144 mm[Hg] Taina Gu " respiratory rate E&M 20 /min Taina Gu " pulse rate E&M 101 /min Taina Gu " temperature site oral Taina Gu " temperature E&M 98.3 [degF] Taina Gu " weight E&M 308.60 lbs. Taina Gu " weight in kilograms E&M 140.27 kg Taina Gu " height in centimeters E&M 154.94 cm Taina Gu " height E&M 61 [in_i] Taina Gu oxygen saturation, oximetry 86 % Taina Gu " method used to obtain blood pressure automatic Taina Gu " Blood Pressure Position 01 sitting Taina Riccardo " blood pressure, site #1 left arm Taina Gu " blood pressure, diastolic 81 mm[Hg] Taina Gu " blood pressure, systolic 162 mm[Hg] Taina Gu " respiratory rate E&M 22 /min Taina Gu " pulse rate E&M 111 /min Taina uG " temperature site tympanic Taina Gu " temperature E&M 99.2 [degF] Taina Gu " weight E&M 310.20 lbs. Taina Gu " weight in kilograms E&M 141 kg Taina Gu " height in centimeters E&M 154.94 cm Taina Gu " height E&M 61 [in_i] Taina Gu oxygen saturation, oximetry 96 % Francesca Gamino " blood pressure, diastolic 81 mm[Hg] Francesca Gamino " blood pressure, systolic 112 mm[Hg] Francesca Gamino " respiratory rate E&M 17 /min Francesca Gamino " pulse rate E&M 93 /min Francesca Gamino " temperature E&M 98.3 [degF] Francesca Gamino " method used to obtain blood pressure automatic Francesca Gamino " Blood Pressure Position 01 sitting Francesca Gamino " blood pressure, site #1 right arm Francesca Gamino " temperature site oral Francesca Gamino " weight E&M 274.38 lbs. Francesca Gamino " weight in kilograms E&M 124.72 kg Francesca Gamino " height E&M 61 [in_i] Francesca Gamino " height in centimeters E&M 154.94 cm Francesca Gamino oxygen saturation, oximetry 96 % Francesca Gamino " blood pressure, diastolic 82 mm[Hg] Francesca Gamino " blood pressure, systolic 124 mm[Hg] Francesca Gamino " respiratory rate E&M 17 /min Francesca Gamino " pulse rate E&M 89 /min Francesca Gamino " temperature E&M 98.4 [degF] Francesca Gamino " method used to obtain blood pressure manual Francesca Gamino " Blood Pressure Position 01 sitting Francesca Gamino " blood pressure, site #1 right arm Francesca Gamino " temperature site oral Francesca Gamino " weight E&M 287.38 lbs. Francesca Gamino " weight in kilograms E&M 130.63 kg Francesca Gamino " height E&M 61 [in_i] Francesca Gmaino " height in centimeters E&M 154.94 cm Francesca Gamino method used to obtain blood pressure manual Mona Velez " Blood Pressure Position 01 sitting Mona Lira " blood pressure, site #1 left arm Mona Lira " blood pressure, diastolic 88 mm[Hg] Mona Lira " blood pressure, systolic 130 mm[Hg] Mona Lira " weight E&M 272 lbs. Mona Lira " weight in kilograms E&M 123.64 kg Mona Lira " temperature site oral Mona Lira " temperature E&M 98.0 [degF] Mona Lira " oxygen saturation, oximetry 92 % Mona Lira " pulse rate E&M 98 /min Mona Lira " height E&M 61 [in_i] Mona Lira " height in centimeters E&M 154.94 cm Mona Lira oxygen saturation, oximetry 93 % Rosalinda Ward " method used to obtain blood pressure automatic Rosalinda Ward " Blood Pressure Position 01 sitting Rosalinda Ward " blood pressure, site #1 right arm Rosalinda Ward " blood pressure, diastolic 87 mm[Hg] Rosalinda Ward " blood pressure, systolic 120 mm[Hg] Rosalinda Ward " respiratory rate E&M 24 /min Rosalinda Ward " pulse rate E&M 113 /min Rosalinda Ward " temperature site tympanic Rosalinda Ward " temperature E&M 98.3 [degF] Rosalinda Ward " weight E&M 294 lbs. Rosalinda Ward " weight in kilograms E&M 133.64 kg Rosalinda Ward " height E&M 61 [in_i] Rosalinda Ward " height in centimeters E&M 154.94 cm Rosalinda Ward oxygen saturation, oximetry 87 % Rosalinda Ward " method used to obtain blood pressure automatic Rosalinda Ward " Blood Pressure Position 01 sitting Rosalinda Ward " blood pressure, site #1 left arm Rosalinda Ward " blood pressure, diastolic 85 mm[Hg] Rosalinda Ward " blood pressure, systolic 122 mm[Hg] Rosalinda Ward " pulse rate E&M 106 /min Rosalinda Ward " respiratory rate E&M 24 /min Rosalinda Ward " temperature site oral Rosalinda Ward " temperature E&M 98.7 [degF] Rosalinda Ward " weight E&M 293 lbs. Rosalinda Ward " weight in kilograms E&M 133.18 kg Rosalinda Ward " height in centimeters E&M 154.94 cm Rosalinda Ward " height E&M 61 [in_i] Rosalinda Ward oxygen saturation, oximetry 96 % Loly Winslow " method used to obtain blood pressure automatic Loly Winslow " Blood Pressure Position 01 sitting Loly Winslow " blood pressure, site #1 right arm Loly Winslow " blood pressure, diastolic 92 mm[Hg] Loly Winslow " blood pressure, systolic 140 mm[Hg] Loly Winslow " respiratory rate E&M 28 /min Loly Winslow " pulse rate E&M 102 /min Loly Winslow " temperature site oral Loly Winslow " temperature E&M 98.2 [degF] Loly Winslow " weight E&M 290.20 lbs. Loly Winslow " weight in kilograms E&M 131.91 kg Loly Winslow " height E&M 61 [in_i] Loly Winslow " height in centimeters E&M 154.94 cm Loly Winslow oxygen saturation, oximetry 98 % Loly Winslow " method used to obtain blood pressure automatic Loly Winslow " Blood Pressure Position 01 sitting Loly Winslow " blood pressure, site #1 right arm Loly Winslow " blood pressure, diastolic 74 mm[Hg] Loly Winslow " blood pressure, systolic 121 mm[Hg] Loly Winslow " respiratory rate E&M 28 /min Loly Winslow " pulse rate E&M 101 /min Loly Winslow " temperature site oral Loly Winslow " temperature E&M 97.9 [degF] Loly Winslow " weight E&M 281 lbs. Loly Winslow " weight in kilograms E&M 127.73 kg Loly Winslow " height E&M 61 [in_i] Loly Winslow " height in centimeters E&M 154.94 cm Loly Winslow blood pressure, diastolic 80 mm[Hg] [employer] " blood pressure, systolic 128 mm[Hg] [employer] " pulse rate E&M 78 /min [employer] " respiratory rate E&M 20 /min [employer] " weight E&M 284.00 lbs. [employer] weight E&M 281.60 lbs. [employer] " respiratory rate E&M 22 /min [employer] " blood pressure, diastolic 78 mm[Hg] [employer] " pulse rate E&M 76 /min [employer] " oxygen saturation, oximetry 95 % [employer] " blood pressure, systolic 124 mm[Hg] [employer] weight E&M 289.90 lbs. [employer] " blood pressure, diastolic 78 mm[Hg] [employer] " pulse rate E&M 74 /min [employer] " respiratory rate E&M 22 /min [employer] " temperature E&M 97.8 [degF] [employer] " blood pressure, systolic 122 mm[Hg] [employer] weight E&M 292.00 lbs. [employer] " respiratory rate E&M 26 /min [employer] " oxygen saturation, oximetry 93 % [employer] " pulse rate E&M 100 /min [employer] " blood pressure, systolic 142 mm[Hg] [employer] " blood pressure, diastolic 100 mm[Hg] [employer] weight E&M 291.00 lbs. [employer] " pulse rate E&M 100 /min [employer] " height E&M 61.50 [in_i] [employer] " blood pressure, systolic 126 mm[Hg] [employer] " respiratory rate E&M 32 /min [employer] " blood pressure, diastolic 94 mm[Hg] [employer] blood pressure, diastolic 90 mm[Hg] [employer] " blood pressure, systolic 126 mm[Hg] [employer] " pulse rate E&M 112 /min [employer] " respiratory rate E&M 32 /min [employer] " oxygen saturation, oximetry 87 % [employer] blood pressure, systolic 130 mm[Hg] [employer] " respiratory rate E&M 24 /min [employer] " blood pressure, diastolic 96 mm[Hg] [employer] " temperature E&M 98.2 [degF] [employer] " pulse rate E&M 92 /min [employer] " weight E&M 275.00 lbs. [employer] blood pressure, systolic 110 mm[Hg] [employer] " oxygen saturation, oximetry 97 % [employer] " respiratory rate E&M 22 /min [employer] " pulse rate E&M 96 /min [employer] " weight E&M 267.00 lbs. [employer] " temperature E&M 98.8 [degF] [employer] " blood pressure, diastolic 80 mm[Hg] [employer] respiratory rate E&M 20 /min [employer] " blood pressure, diastolic 90 mm[Hg] [employer] " temperature E&M 99.4 [degF] [employer] " pulse rate E&M 88 /min [employer] " oxygen saturation, oximetry 96 % [employer] " blood pressure, systolic 130 mm[Hg] [employer] " weight E&M 269.00 lbs. [employer] blood pressure, systolic 102 mm[Hg] [employer] " blood pressure, diastolic 70 mm[Hg] [employer] " weight E&M 266.80 lbs. [employer] " respiratory rate E&M 22 /min [employer] " pulse rate E&M 92 /min [employer] " temperature E&M 98.0 [degF] [employer] " oxygen saturation, oximetry 98 % [employer] temperature site tympanic Colleen Pace " oxygen saturation, oximetry 95 % Colleen Pace " method used to obtain blood pressure automatic Colleen Pace " Blood Pressure Position 01 sitting Colleen Pace " blood pressure, site #1 left arm Colleen Pace " blood pressure, diastolic 88 mm[Hg] Colleen Pace " blood pressure, systolic 120 mm[Hg] Colleen Pace " pulse rate E&M 100 /min Colleen Pace " temperature E&M 99.9 [degF] Colleen Pace " weight E&M 273.25 lbs. Colleen Pace " weight in kilograms E&M 124.20 kg Colleen Pace " height E&M 61 [in_i] Colleen Pace " height in centimeters E&M 154.94 cm Colleen Pace oxygen saturation, oximetry 97 % Honeytejas Gutierrez " pulse rate E&M 98 /min Honey Brenda " weight E&M 272 lbs. Honey Brenda " weight in kilograms E&M 123.64 kg Honey Brenda " height E&M 61 [in_i] Honey Brenda " height in centimeters E&M 154.94 cm Honey Brenda " respiratory rate E&M 24 /min Honey Gutierrez " method used to obtain blood pressure manual Honey Gutierrez " Blood Pressure Position 01 sitting Honey Gutierrez " blood pressure, site #1 right arm Honey Gutierrez " blood pressure, diastolic 90 mm[Hg] Honey Gutierrez " blood pressure, systolic 118 mm[Hg] Honey Gutierrez " temperature site oral Honey Brenda " temperature E&M 98.7 [degF] Honey Brenda ALLERGIES Allergy Name Onset Date Reaction Criticality Status VICODIN swelling, rashes all over skin High Criticality active LEVAQUIN Breakout in Hives High Criticality active REASON FOR REFERRAL Start Date - End Date Service - Pain Management - External - Cardiology - External - Xray - [...] High blood glucose, random 256 mg/dL Edward Roa [facility] " hemoglobin A1C, blood, as % of total hemoglobin 8.3 % Edward Baptism [facility] hematocrit, blood 37.6 % Kayla Lipscomb " hemoglobin, blood 11.0 g/dL Kayla Lipscomb " leukocyte count, blood 9.9 10*3/mm3 Kayla Lipscomb " Estimated Glomerular Filtration Rate (calc) 90 mL/min/((173/100).m2) Kayla Lipscomb " creatinine, serum 0.80 mg/dL Kayla Ruel " urea nitrogen, blood 12 mg/dL Kayla Lipscomb " potassium, serum 3.6 mmol/L Kayla Ruel [...] 0.57-1.00 " urea nitrogen, [facility] 12 [facility] " blood glucose, random 202 mg/dL [...] a day as needed for cough Edward Whiteabuinasir CONTRAVE 8-90 MG ORAL TABLET EXTENDED RELEASE 12 HOUR 1 tab in the am x 1 week, then 1 tab Twice a Day x 1 week , then 2 tab in the am and 1 tab in the pm x1 week, then 2 tab twice a day Edward Boyceuinasir METFORMIN 500MG TAB TAKE 1 TABLET BY MOUTH ONCE DAILY Bhavya Pedersen [facility] FREESTYLE LANCETS Use as directed to test blood sugar [facility] ICD CODE E11.9 FREESTYLE LITE TEST IN VITRO STRIP Use as directed to test blood sugar once daily [facility] ICD CODE E11.9 FREESTYLE FREEDOM LITE W/DEVICE KIT Use as directed to test blood sugar once daily [facility] ICD CODE E11.9 BD ULTRA-FINE MICRO PEN NEEDLE 32G X 6 MM use as instructed with kwik pen Edward Boyceuinasir PANTOPRAZOLE SOD 40MG TAB TAKE 1 TABLET BY MOUTH ONCE DAILY Tiara Christianson [facility] HUMALOG MIX 75/25 KWIKPEN (75-25) 100 UNIT/ML SUBCUTANEOUS SUSPENSION PEN-INJECT INJECT 50 UNITS SUB-Q 15 MINUTES BEFORE BREAKFAST AND 26 UNITS 15 MINUTES BEFORE DINNER DAILY Katy Ellsworth [facility], AZITHROMYCIN 250 MG ORAL TABLET 2 tablets by mouth on day one then one tablet by mouth each day for a total of 5 days Edward Delgado CHEST CONGESTION RELIEF 400 MG ORAL TABLET take every 4 hours as needed for cough and congestion. - Edward Boyceuinasir DOXYCYCLINE HYCLATE 100 MG ORAL CAPSULE 1 by mouth twice a day - Jamaromarlinda Roa [facility] RELION INSULIN SYRINGE 31G X 15/64" 1 ML Use Three Times a Day to administer insulin [facility] Updated directions IPRATROPIUM/ ALBUTER EMI USE 1 AMPULE IN NEBULIZER EVERY 4 HOURS NEEDED FOR WHEEZING [facility] AZITHROMYCIN 250 MG ORAL TABLET 2 tablets [...] Mouth daily for 4 days - Annemarie Vo SYMBICORT 80-4.5 MCG/ACT INHALATION AEROSOL take 2 [...] ORAL TABLET take 2 tablets daily Edward Whiteabjaimie CYCLOBENZAPRINE HCL 10 MG ORAL TABLET take 1 By Mouth Three Times a Day As Needed - Titi Kaitlynn ADVAIR DISKUS 250-50 MCG/DOSE INHALATION AEROSOL POWDER BREATH ACTIVATED 1 puff BID - Annemarie Gaffney LISINOPRIL-HYDROCHLOROTHIAZIDE 10-12.5 MG ORAL TABLET take 1 By Mouth daily - Edward Boyceuinasir PREDNISONE 20MG TAB TAKE 1 TABLET BY MOUTH ONCE DAILY Edward Whiteabuife PROVENTIL HFA 108 (90 Base) MCG/ACT INHALATION AEROSOL SOLUTION 2 puffs every 4 hours as needed - Comfort Trevino ADVAIR DISKUS 250-50 MCG/DOSE INHALATION AEROSOL POWDER BREATH ACTIVATED take 1 puff Twice a Day - Annemarie Gaffney SOCIAL HISTORY Date Observation Value Provider time of call 07/18/2019 2:19 PM Eusebia Gagnon social history E&M Single. Not homeless. Born in [facility]. City: [facility]. State: [place]. Not employed. Retired. Highest education level: high school graduate. Gender of partner(s): male. Francesca Diana " social history reviewed E&M reviewed today Francesca Diana " assessment of health literacy ([facility] 2014 Standards, 3C10) Adequate Francesca Diana " passive cigarette smoke exposure Yes Francesca Bergmanirez " smoking status former smoker Francesca Diana " Exercise Program Referral T Francesca Diana " Weight Management Counseling Provided T Francesca Orozco Lebron " Nutrition intervention T Francesca Orozco [place] Exercise Program Referral T Satinder Ghazal " Weight Management Counseling Provided T Satinder Harman " Nutrition intervention T Satinder Harman drug use, illicit Never Nupur Chong " alcohol use Currently Nupur Chong " social history E&M Single. Not homeless. Born in [facility]. City: [facility]. State: [place]. Not employed. Retired. Highest education level: high school graduate. Gender of partner(s): male. Nupur Chong " social history reviewed E&M reviewed today Nupur Chong " assessment of health literacy ([facility] 2014 Standards, 3C10) Adequate Nupur Chong " passive cigarette smoke exposure Yes Nupur Chong " smoking status former smoker Nupur Chong time of call 04/02/2019 8:30 AM Daphney Espitia drug use, illicit Never Stephanie Chalo " alcohol use Currently Stephanie Chalo " social history E&M Single. Not homeless. Born in [facility]. City: [facility]. State: [place]. Not employed. Retired. Highest education level: high school graduate. Gender of partner(s): male. Stephanie Isabel " social history reviewed E&M reviewed today Stephanie Isabel " assessment of health literacy ([facility] 2014 Standards, 3C10) Adequate Stephanie Chalo " passive cigarette smoke exposure Yes Stephanie Isabel " smoking status former smoker Stephanie Isabel " Exercise Program Referral T Stephanie Isabel " Weight Management Counseling Provided T Stephanie Isabel " Nutrition intervention T Stephanie Isabel sunscreen use No Chukwuemeka Baptism [employer] " Exercise Program Referral T Opaluemejose j Baptism [facility] " Weight Management Counseling Provided T Gautamwuemejose j Baptism [employer] " Nutrition intervention T Jamarkwuemejose j Baptism [employer] " drug use, illicit Never Nupur Chong " alcohol use Currently Nupur Chong " social history E&M Single. Not homeless. Born in [facility]. City: [facility]. State: [place]. Not employed. Retired. Highest education level: high school graduate. Gender of partner(s): male. Nupur Chong " social history reviewed E&M reviewed today Nupur Chong " assessment of health literacy ([facility] 2014 Standards, 3C10) Adequate Nupur Chong " passive cigarette smoke exposure No Nupur Chong " smoking status former smoker Nupur Chong time of call 01/09/2019 11:02 AM Eusebia Gagnon time of call 01/08/2019 8:58 AM Alayna Gu Exercise Program Referral Miguel A Harman " Weight Management Counseling Provided Miguel A Harman " Nutrition intervention Miguel A Harman " drug use, illicit Never Nupur Chong " alcohol use Currently Nupur Chong " social history E&M Single. Not homeless. Born in [facility]. City: [facility]. State: [place]. Not employed. Retired. Highest education level: high school graduate. Gender of partner(s): male. Nupur Chong " social history reviewed E&M reviewed today Nupur Chong " assessment of health literacy ([facility] 2014 Standards, 3C10) Adequate Nupur Chong " passive cigarette smoke exposure No Nupur Chong " smoking status former smoker Nupur Chong time of call 11/21/2018 9:45 AM Joaquim Engel drug use, illicit Never Stephanie Isabel " alcohol use Currently Stephanie Isabel " social history E&M Single. Not homeless. Born in [facility]. City: [facility]. State: [place]. Not employed. Retired. Highest education level: high school graduate. Gender of partner(s): male. Stephanie Isabel " social history reviewed E&M reviewed today Stephanie Isabel " assessment of health literacy ([employer] 2014 Standards, 3C10) Adequate Stephanie Isabel " is there any chance that you could be ? No Stephanie Isabel " passive cigarette smoke exposure No Stephanie Isabel " smoking status former smoker Stephanie Isabel " Exercise Program Referral T Stephanie Isabel " Weight Management Counseling Provided T Stephanie Isabel " Nutrition intervention Miguel A Isabel time of call 08/07/2018 1:51 PM Clementine Velasquez drug use, illicit Never Hafsa Will " alcohol use Currently Hafsa Will " social history E&M Single. Not homeless. Born in [facility]. City: [facility]. State: [place]. Not employed. Retired. Highest education level: high school graduate. Gender of partner(s): male. Hafsa Will " social history reviewed E&M reviewed today Hafsa Will " assessment of health literacy ([employer] 2014 Standards, 3C10) Adequate Hafsa Will " passive cigarette smoke exposure No Hafsa Will " smoking status former smoker Hafsa Will " Exercise Program Referral T Hafsa Will " Weight Management Counseling Provided T Hafsa Will " Nutrition intervention T Hafsa Will drug use, illicit Never Violette Pool " alcohol use Currently Violette Pool " social history E&M Single. Not homeless. Born in [facility]. City: [facility]. State: [place]. Not employed. Retired. Highest education level: high school graduate. Gender of partner(s): male. Violette Pool " social history reviewed E&M reviewed today Violette Pool " assessment of health literacy ([employer] 2014 Standards, 3C10) Adequate Violette Pool " passive cigarette smoke exposure No Violette Pool " smoking status former smoker Violette Pool alcohol use Currently Hafsa Will " drug use, illicit Never Hafsa Will " social history E&M Single. Not homeless. Born in [facility]. City: [facility]. State: [place]. Not employed. Retired. Highest education level: high school graduate. Gender of partner(s): male. Hafsa Will " social history reviewed E&M reviewed today Hafsa Will " assessment of health literacy ([employer] 2014 Standards, 3C10) Adequate Hafsa Will " passive cigarette smoke exposure No Hafsa Will " smoking status former smoker Hafsa Will " Exercise Program Referral T Hafsa Will " Weight Management Counseling Provided T Hafsa Will " Nutrition intervention T Hafsa Will drug use, illicit Never Priya Jerad " alcohol use Currently Priya Jerad " social history E&M Single. Not homeless. Born in [facility]. City: [facility]. State: [place]. Not employed. Retired. Highest education level: high school graduate. Gender of partner(s): male. Priya Jerad " social history reviewed E&M reviewed today Priya Mars " assessment of health literacy ([employer] 2014 Standards, 3C10) Adequate Priya Mars " is there any chance that you could be ? No Priya Mars " passive cigarette smoke exposure Yes Priya Mars " smoking status former smoker Priya Mars " Exercise Program Referral T Priya Mars " Weight Management Counseling Provided T Priya Mars " Nutrition intervention T Priya Mars time of call 05/03/2018 12:59 PM Raysa Potts Exercise Program Referral T Edward Whiteabuife " Weight Management Counseling Provided T Edward Roa Nnabuife " Nutrition intervention T Edward Roa Nnabuife " social history E&M Single. Not homeless. Born in [facility]. City: [facility]. State: [place]. Not employed. Retired. Highest education level: high school graduate. Gender of partner(s): male. Alayna Chapman " social history reviewed E&M reviewed today Alayna Chapman " assessment of health literacy ([employer] 2014 Standards, 3C10) Adequate Alayna Chapman " passive cigarette smoke exposure Yes Alayna Chapman " smoking status former smoker Alayna Chapman time of call 04/24/2018 11:41 AM Gayle Serrano drug use, illicit Never Stephanie Isabel " alcohol use Currently Stephanie Chaol " social history E&M Single. Not homeless. Born in [facility]. City: [facility]. State: [place]. Not employed. Retired. Highest education level: high school graduate. Gender of partner(s): male. Stephanie Isabel " social history reviewed E&M reviewed today Stephanie Isabel " assessment of health literacy ([employer] 2014 Standards, 3C10) Adequate Stephanie Isabel " passive cigarette smoke exposure Yes Stephanie Isabel " smoking status former smoker Stephanie Chalo " Exercise Program Referral T Stephanie Isabel " Weight Management Counseling Provided T Stephanie Isabel " Nutrition intervention T Stephanie Isabel time of call 04/05/2018 10:07 AM Alayna Gu drug use, illicit Never Alayna Chapman " alcohol use Currently Alayna Chapman " social history E&M Single. Not homeless. Born in [facility]. City: [facility]. State: [place]. Not [place]. Retired. Highest education level: high school graduate. Gender of partner(s): male. Alayna Chapman " social history reviewed E&M reviewed today Alayna Chapman " assessment of health literacy ([employer] 2014 Standards, 3C10) Adequate Alayna Chapman " passive cigarette smoke exposure No Alayna Chapman " smoking status former smoker Alayna Chapman " Exercise Program Referral T Alayna Chapman " Weight Management Counseling Provided T Alayna Chapman " Nutrition intervention T Alayna Chapman Exercise Program Referral T Edward Roa Nnabuife " Weight Management Counseling Provided T Bryanmejose j Magañaian Nnabuife " Nutrition intervention T Chuomaruemejose j Baptism Nnabuife " alcohol use Currently Alayna Chapman " social history E&M Single. Not homeless. Born in [facility]. City: [facility]. State: [place]. Not employed. Retired. Highest education level: high school graduate. Gender of partner(s): male. Alayna Chapman " social history reviewed E&M reviewed today Alayna Chapman " assessment of health literacy ([employer] 2014 Standards, 3C10) Adequate Alayna Chapman " passive cigarette smoke exposure No Alayna Chapman " smoking status former smoker Alayna Chapman " assessment of health literacy ([employer] 2014 Standards, 3C10) Adequate Alayna Chapman " drug use, illicit Never Alayna Chapman " alcohol use Currently Alayna Chapman " social history E&M Single. Not homeless. Born in [facility]. City: [facility]. [place]: [place] Not [place]. Retired. Highest education level: high [...] history E&M Single. Not homeless. Born in [facility]. City: [facility]. [place]: [place] Not employed. Retired. Highest education level: high school graduate. Gender of partner(s): male. Vivian Sin " social history reviewed E&M reviewed today Vivian Sin " passive cigarette smoke exposure No Vivian Sin " smoking status former smoker Vivian Sin " Exercise Program Referral T Vivian Merrick " Weight Management Counseling Provided T Vivian Sin " Nutrition intervention Miguel A Park Merrick time of call 12/05/2017 2:22 PM Sera Bob drug use, illicit Never Stephanie Isabel " alcohol use Currently Stephanie Isabel " social history E&M Single. Not homeless. Born in [facility]. City: [facility]. State: [place]. Not employed. Retired. Highest education level: high [...] M Palacio Exercise Program Referral T Edward Whiteabuife " Weight Management Counseling Provided T Edward Boyceuife " Nutrition intervention T Edward Roa Nnabuife " social history E&M Single. Not homeless. Born in [facility]. City: [facility]. State: [place]. Not employed. Retired. Highest education level: high school graduate. Gender of partner(s): male. Edward Boyceuife " social history reviewed E&M reviewed today Edward Whiteabuife " drug use, illicit Never Nupur Chong " alcohol use Currently Nupur Chong " passive cigarette smoke exposure Yes Nupur Chong " smoking status former smoker Nupur Chong time of call 09/02/2017 9:48 AM Donna Landis sunscreen use No Edward Roa Nnabuife " social history E&M Single. Not homeless. Born in [facility]. City: [facility]. State: [place]. Not employed. Retired. Highest education level: high school graduate. Gender of partner(s): male. Edward Boyceuife " social history reviewed E&M reviewed today Edward Fragafe " passive cigarette smoke exposure Yes Tainakaylin Gu " smoking status former smoker Taina Gu time of call 08/11/2017 8:56 AM Donna Landis Exercise Program Referral T Titi Calderón " Weight Management Counseling Provided T Titi Calderón " Nutrition intervention T Titi Calderón " passive cigarette smoke exposure No Taina Gu " smoking status former smoker Taina Gu time of call 07/21/2017 4:25 PM Alayna Gu social history E&M Single. Not homeless. Born in [facility]. City: [facility]. State: [place] Not employed. Retired. Highest education level: high school graduate. Gender of partner(s): male. Edward Delgado " social history reviewed E&M reviewed today Edward Delgado " Exercise Program Referral T Edward Delgado " Weight Management Counseling Provided T Edward Delgado " Nutrition intervention T Edward Delgado time of call 07/08/2017 10:03 AM Ana M Palacio " passive cigarette smoke exposure No Taina Gu " smoking status former smoker Taina Gu Exercise Program Referral Miguel A Umana " Weight Management Counseling Provided T Edwin Umana " Nutrition intervention Miguel A Umana [...] history E&M Single. Not homeless. Born in [facility]. City: [facility]. State: [place] Not employed. Retired. Highest education level: high school graduate. Gender of partner(s): male. Deniz Brown " social history reviewed E&M reviewed today Deniz Brown " passive cigarette smoke exposure Yes Mona Lira " smoking status current every day smoker Mona Lira " smoking status current every day smoker Rosalinda Cunninghama " passive cigarette smoke exposure Yes Rosalinda Ward smoking status current every day smoker Rosalinda Ward " passive cigarette smoke exposure Yes Rosalinda Ward passive cigarette smoke exposure Yes Loly Short " smoking status current every day smoker Loly Short " passive cigarette smoke exposure Yes Loly Short " smoking status current every day smoker Loly Short smoking status Current every day smoker [employer] [...] history E&M Single. Not homeless. Born in [facility]. City: [facility]. State: [place] Not employed. Retired. Highest education level: high school graduate. Gender of partner(s): male. Honey Gutierrez " drug use, illicit Never Honey Brenda " alcohol use Never Honey Gutierrez " Occupation #1 Retired [employer] Gutierrez " patient considered to be homeless No Honeytejas Gutierrez " passive cigarette smoke exposure Yes Honey Gutierrez " cigarettes, number smoked per day 1 pack Honey Gutierrez " smoking status current every day smoker Honey Gutierrez FUNCTIONAL STATUS Date Observation Value Provider total score, Activities of Daily Living (ADL) Independent Edward Boyceuinsair Activities of Daily Living (ADLs, IADLs, etc.) Decrease in ADL Edward Roa Nnabuife MENTAL STATUS Date Observation Value Provider assessment of judgment and insight E&M intact [facility] " mental status examination: orientation E&M oriented to time, place, and person [facility] assessment of mood and affect E&M no depression, anxiety, or agitation [facility] " Generalized Anxiety Disorder Questionnaire - Question 2 0 Francesca Diana " Generalized Anxiety Disorder Questionnaire - Question 1 0 Francesca Diana assessment of judgment and insight E&M intact [facility] " assessment of mood and affect E&M no depression, anxiety, or agitation [facility] " mental status examination: orientation E&M oriented to time, place, and person [facility] Nnabui " Generalized Anxiety Disorder Questionnaire - Question 2 0 Nupur Chong " Generalized Anxiety Disorder Questionnaire - Question 1 0 Nupur Chong assessment of judgment and insight E&M intact Edward [facility] " mental status examination: orientation E&M oriented to time, place, and person [facility] " assessment of mood and affect E&M no depression, anxiety, or agitation [facility] " Generalized Anxiety Disorder Questionnaire - Question 2 0 Stephanie Isabel " Generalized Anxiety Disorder Questionnaire - Question 1 0 Stephanie Isabel assessment of judgment and insight E&M intact Edward [facility] " mental status examination: orientation E&M oriented to time, place, and person [facility] " assessment of mood and affect E&M anxious, depressed mood [facility] Nnabui " Generalized Anxiety Disorder Questionnaire - [...] of judgment and insight E&M intact Edward [facility] " mental status examination: orientation E&M oriented to time, place, and person [facility] " assessment of mood and affect E&M anxious, depressed mood [facility] " Generalized Anxiety Disorder Questionnaire - Question 2 0 Stephanie Isabel " Generalized Anxiety Disorder Questionnaire - Question 1 0 Stephanie Isabel assessment of judgment and insight E&M intact Edward Baptism abui " mental status examination: orientation E&M oriented to time, place, and person Chuodilia Baptism abui " assessment of mood and affect E&M anxious, depressed mood [facility] White[facility]uife mental status examination: orientation E&M [...] E&M oriented to time, place, and person [facility] ab[facility] " assessment of mood and affect E&M anxious, depressed mood [facility] Nnabuife assessment of judgment and insight E&M intact [facility] ab[facility] " mental status examination: orientation E&M oriented to time, place, and person [facility] " assessment of mood and affect E&M anxious, depressed mood [facility] abui " Generalized Anxiety Disorder Questionnaire - Question 2 0 Priya Mars " Generalized Anxiety Disorder Questionnaire - Question 1 0 Priya Mars assessment of judgment and insight E&M intact [facility]odilia [facility] mental status examination: orientation E&M oriented to time, place, and person [facility] " assessment of mood and affect E&M anxious, depressed mood [facility]inda [facility] " Generalized Anxiety Disorder Questionnaire - Question 2 0 Alayna Chapman " Generalized Anxiety Disorder Questionnaire - Question 1 0 Alayna Chapman assessment of judgment and insight E&M intact Edward [facility] " mental status examination: orientation E&M oriented to time, place, and person [facility] " assessment of mood and affect E&M anxious, depressed mood [facility] Generalized Anxiety Disorder Questionnaire - Question 2 0 Stephanie Isabel " Generalized Anxiety Disorder Questionnaire - Question 1 0 Stephanie Isabel assessment of judgment and insight E&M intact Edward [facility] " mental status examination: orientation E&M oriented to time, place, and person Chulinda Baptism abui " assessment of mood and affect E&M anxious, depressed mood [facility] Generalized Anxiety Disorder Questionnaire - Question 2 0 Alayna Chapman " Generalized Anxiety Disorder Questionnaire - Question 1 0 Alayna Chapman assessment of judgment and insight E&M intact Edward [facility] " mental status examination: orientation E&M oriented to time, place, and person [facility] " assessment of mood and affect E&M anxious, depressed mood [facility] Nnabui " Generalized Anxiety Disorder Questionnaire - Question 2 0 Alayna Chapman " Generalized Anxiety Disorder Questionnaire - Question 1 0 Alayna Chapman assessment of judgment and insight E&M intact Edward [facility] " mental status examination: orientation E&M oriented to time, place, and person [facility] " assessment of mood and affect E&M anxious, depressed mood Chulinda Baptism Nnabui " Generalized Anxiety Disorder Questionnaire - Question 2 0 Alaynataye Krausa " Generalized Anxiety Disorder Questionnaire - Question [...] and affect E&M anxious, depressed mood Edward Delgado " assessment of judgment and insight E&M intact [facility] " mental status examination: orientation E&M oriented to time, place, and person Edward Fragafe " If any problems checked, how difficult [...] assessment of judgment and insight E&M intact [facility] Baptism Nnabuife " mental status examination: orientation E&M oriented to time, place, and person [facility] Nn[facility] " assessment of mood and affect E&M no depression, anxiety, or agitation [facility] " Generalized Anxiety Disorder Questionnaire - Question 2 0 Stephanie Isabel " Generalized Anxiety Disorder Questionnaire - Question 1 0 Stephanie Isabel Generalized Anxiety Disorder Questionnaire - Question 2 0 Nupur Castillo " Generalized Anxiety Disorder Questionnaire - Question 1 0 Nupur Chong mental status examination: recall E&M intact for recent and remote events Chufabiánpajose j Baptism Nnabuife " assessment of judgment and insight E&M intact Chufabiánpajose j Baptism Nnabuife " mental status examination: orientation E&M oriented to time, place, and person Chulinda Baptism Nnabuife " assessment of mood and affect E&M no depression, anxiety, or agitation Chufabiánpajose j Baptism Nnabuife " Generalized Anxiety Disorder Questionnaire - [...] E&M intact for recent and remote events [facility] Nnabuife " mental status examination: orientation E&M oriented to time, place, and person Chufabiánpajose j Baptism Nnabuife " assessment of judgment and insight E&M intact Chufabiánpajose j Baptism Nnabuife " assessment of mood and affect E&M no depression, anxiety, or agitation [facility] " Generalized Anxiety Disorder Questionnaire - Question 2 0 Taina Gu " Generalized Anxiety Disorder Questionnaire - Question 1 0 Tainakaylin Gu Generalized Anxiety Disorder Questionnaire - Question 2 0 Francesca Gamino " Generalized Anxiety Disorder Questionnaire - Question 1 0 Francesca Gamino assessment of judgment and insight E&M intact Lo Esquivel " assessment of mood and affect E&M no depression, anxiety, or agitation Lo Esquivel " If any problems checked, how difficult [...] Disorder Questionnaire - Question 3 0 Francesca Parkerrez " Generalized Anxiety Disorder [...] Disorder Questionnaire - Question 2 0 Colleen Sanjeev " Generalized Anxiety Disorder Questionnaire - Question 1 0 Colleen Pace MEDICAL EQUIPMENT No Information Available FAMILY HISTORY No Information Available INSURANCE PROVIDERS Payer name Policy type / Coverage type Covered constitution party ID [place] Medicare HMO Medicare HMO [id number] ADVANCE DIRECTIVES No Information Available TREATMENT PLAN [...] Stick Glucose Est Patient Exp Problem - 90101 Est Patient Exp Problem - 64447 Est Patient Detailed - 09761 New Patient Intermediate Opth - 72883 Finger Stick Glucose Ear Irrigation Est Patient Exp Problem - 44925 Est Patient Exp Problem - 89942 Retinal Screening Est Patient Well Exam (40 - 64 Yrs) - 85240 Est Patient Detailed - 22994 Est Patient Exp Problem - 26142 Est Patient Exp Problem - 56467 New Patient Comprehensive - 99913 Glucose Stick Est Patient Exp Problem - 19117 Glucose Stick Est Patient Exp Problem - 15244 Prescription Assistance (Non-HIV) Glucose Stick Est Patient Exp Problem - 24555 Endocrinology - Adult - [facility] HEMOGLOBIN A1C - In House Est Patient Exp Problem - 27386 Est Patient Detailed - 00166 Est Patient Exp Problem - 27683 Est Patient Detailed - 93105 IB Assessment - Actuary Manager Diagnostic evaluation (no medical) - 09457 Integrated Behavioral Health Assessment (IBH) Est Patient Exp Problem - 59971 Est Patient Detailed - 19984 Ofc Vst, Est Level V Est Patient Exp Problem - 76406 Est Patient Exp Problem - 55870 Ofc Vst, Est Level IV Est Patient Exp Problem - 32655 Ofc Vst, Est Level V Est Patient Exp Problem - 82853 Est Patient Detailed - 20688 Est Patient Detailed - 55625 ALBUTEROL INHAL ADMIN THRU DME 1MG Est Patient Detailed - 73696 Est Patient Exp Problem - 08162 Est Patient Exp Problem - 68537 Ear Irrigation Est Patient Exp Problem - 25759 Ofc Vst, Est Level III Est Patient Exp Problem - 68412 HISTORY OF PROCEDURES Procedure Date Procedure Name Provider Procedure Notes Status Finger Stick Glucose Gill Villafuerte completed New Patient Intermediate Opt - 54894 Satinder Harman completed Finger Stick Glucose Satinder Harman completed Ear Irrigation Satinder Harman completed Glucose Stick Gill Villafuerte completed Glucose Stick Satinder Harman completed Glucose Stick Gill Villafuerte completed HEMOGLOBIN A1C - In House Comfort Trevino completed [facility] Assessment - Actuary Manager Toma Woods completed Diagnostic evaluation (no medical) - 23446 Toma Woods completed ALBUTEROL INHAL ADMIN THRU DME 1MG Deniz Brown completed Ear Irrigation Thea Junior completed GOALS No Information Available [facility] No Information Available
--- OUTSIDE RECORDS SUMMARY | 2019-09-25 17:41 | XMS REPORT ---
Author Author Admin, [employer] Organization Unknown Address Unknown Phone Unavailable PROBLEMS Condition Status Date Provider Notes Hordeolum, internal active Edward Roa Nnabuife Hypokalemia, mild active Edward Roa N[place]uife Chronic pain syndrome active Edward Roa N[place]abuife Cerumen impaction, bilateral active Edward Roa N[place]uife Well woman exam active Edward Roa N[place]uife BMI 50.0-59.9 active Edward Roa N[place] BMI 60.0-69.9, adult completed - Edward Roa Nnabuife CHF exacerbation active Edward Roa N[place] Dyspnea at rest active Edward Roa Nnabuife Acute upper respiratory infection active Edward Roa N[place]uife Screening for lipid disorder active Edward Roa N[place]uife Screening for diabetes mellitus active Edward Roa Nnabuife GERD active Edward Roa Nnabuife Diabetes mellitus type II active Edward Roa Nnabuife Urinary retention active Edward Roa N[place]uife Ascites active Edward Roa Nnabuife Abdominal pain, chronic active Edward Roa Nnabuife Abdominal distension active Edward Roa N[place] Mood Disorder, NOS active Toma Woods Suicidal ideation active Jamarlinda Roa Cindyabui Depression, major active Jamarvidhyalinda Roa [place] COPD with exacerbation active Gautamkavin Roa [place] BMI 50.0-59.9 completed - Tiny Vazquez Mckeon [facility] [place] Breast abnormal findings active Gautamlinda Whiteabuife Otitis media, acute completed - Titi Kaitlynn MORBID OBESITY active Edwin Umana Candidal vaginitis completed - Titi Kaitlynn SLEEP APNEA active Comfort Trevino CHF active Comfort Trevino CHRONIC OBSTRUCTIVE PULMONARY DISEASE, ACUTE EXACERBATION completed - Comfort Trevino LOW BACK PAIN active Thea Puppala DEPENDENT EDEMA, LEGS active Sharpe Vo HEARING DEFICIT active Baljinder Isabel BLURRED VISION active Baljinder Isabel EAR PAIN, RIGHT completed - Titi Kaitlynn MUSCLE SPASM completed - Titi Kaitlynn HYPERTENSION active Gill Villafuerte SARCOIDOSIS active Gill Villafuerte NICOTINE ADDICTION active Sharpe Vo COPD active Sharpe Vo ENCOUNTERS Date Type Provider Location Encounter Diagnosis - Ambulatory Encounter LSJ Lab Support Desktop [place] UNK - Ambulatory Encounter Fax Status [facility] UNK - Ambulatory Encounter Fax Status [facility] UNK - Ambulatory Encounter Fax Status [facility] UNK - Ambulatory Encounter Churameshjose j Hinduism [place] Chukwuemejose j Hinduism Nnabuife [facility] UNK - Ambulatory Encounter Churameshjose j Hinduism [place] Chukwuemejose j Hinduism Nnabuife [facility] UNK - Ambulatory Encounter Chuodilia Hinduism [place] Chukwfabiánmejose j Hinduism Nnabuife [facility] UNK - Ambulatory Encounter Satinder Leon Hinduism N[place]abu[place] [facility], internal - Ambulatory Encounter Comfort Marroquin [facility] UNK - Ambulatory Encounter Comfort Langley MedAdherence [facility] UNK - Ambulatory Encounter Kimberly Gagnon [place] UNK - Ambulatory Encounter Gill Marroquin MedAdherence, [facility] UNK - Ambulatory Encounter Edward Hinduism [place] Gautamwlinda Hinduism Nnabuife [facility] UNK - Ambulatory Encounter Edward Hinduism [place] Gautamwlinda Hinduism N[place] [facility] UNK - Ambulatory Encounter Gill Whiteabjaimie Florezwlinda Roa Nnabjaimie Diana [facility] UNK - Ambulatory Encounter Comfort Ellsworth MedAdherence, [facility] UNK - Ambulatory Encounter Comfort Marroquin MedAdherence, [facility] UNK - Ambulatory Encounter Edward Whiteabuinasir Whiteabuife LinkLogic [facility] UNK - Ambulatory Encounter Comfort Hernandez MedAdherence [facility] UNK - Ambulatory Encounter Fax Status LinkLogic [facility] UNK - Ambulatory Encounter Fax Status LinkLogic [facility] UNK - Ambulatory Encounter Fax Status LinkLogic [facility] UNK - Ambulatory Encounter Edward Roa Nnabuife Edward Roa Nnabuife LinkLogic [facility] UNK - Ambulatory Encounter Satinder Roa Nnabuife Edward Hinduism N[place]uife [facility] Hypokalemia, mild - Ambulatory Encounter Edward Roa Nnabuife Edward Roa Nnabuife [facility] UNK - Ambulatory Encounter LSJ Lab Support Desktop LinkLogic Edward Roa [place] Gautamwfabiánmejose j Hinduism N[place] [facility] UNK - Ambulatory Encounter Fax Status LinkLogic [facility] UNK - Ambulatory Encounter Fax Status LinkLogic [facility] UNK - Ambulatory Encounter Fax Status [facility]ic [facility] UNK - Ambulatory Encounter Fax Status [facility] UNK - Ambulatory Encounter Abisaijose j Hinduism Nnabuinasir Leon Hinduism Nnabuife [facility] UNK - Ambulatory Encounter Abisaijose j Hinduism Nnabuife Edward Hinduism Nnabuife [facility] UNK - Ambulatory Encounter Edward Roa N[place] Gautamwlinda Hinduism Nnabuife [facility] UNK - Ambulatory Encounter Satinder Roa Nnabuife Edward Roa N[place] [facility] Encounter Comfort Pedersen MedAdherence [facility] UNK - Ambulatory Encounter Comfort Christianson MedAdherence [facility] UNK - Ambulatory Encounter Tiara Christianson [facility]herence [facility] UNK - Ambulatory Encounter Edward Whiteabjaimie Roa Nnabuife LinkLogic [facility] UNK - Ambulatory Encounter Osiris Gordon LinkLog [facility] UNK - Ambulatory Encounter Edward Whiteabuinasir Leon Hinduism N[place] LinkLogic [facility] UNK - Ambulatory Encounter Comfort Christianson MedAdherence [facility] UNK - Ambulatory Encounter Edward Hinduism Nnabuife Edward Hinduism Nnabuife [facility] UNK - Ambulatory Encounter Chuodilia Hinduism Nnabuife Edward Hinduism Nnabuife [facility] UNK - Ambulatory Encounter Edward Hinduism Nnabuife Edward Hinduism Nnabuife [facility] UNK - Ambulatory Encounter Satinder Leon Hinduism Nnabuife Edward Hinduism Nnabuife [facility] Chronic pain syndrome - Ambulatory Encounter Edward Hinduism N[place] Gautamwlinda Hinduism Nnabuife [facility] UNK - Ambulatory Encounter LSJ Lab Support Desktop LinkLogic Edward Hinduism N[place] Gautamwlinda Hinduism Nnabuife [facility] UNK - Ambulatory Encounter Abisaijose j Hinduism N[place] Gautamwlinda Hinduism Nnabuife [facility] UNK - Ambulatory Encounter Edward Hinduism Nnabuife Edward Hinduism Nnabuife [facility] UNK - Ambulatory Encounter Comfort Leon Hinduism [place] Gauatmwlinda Hinduism Nnabuife [facility] Well woman examCerumen impaction, bilateral - Ambulatory Encounter Satinder Christianson MedAdherence [facility] UNK - Ambulatory Encounter Satinder Christianson MedAdherence Eusebia Delaney UNK - Ambulatory Encounter Satinder Christianson MedAdherence Chuvidhyawfabiánmejose j Hinduism [place] Edward Roa N[place] Eusebia Gagnon [facility] UNK - Ambulatory Encounter Satinder Christianson MedAdherence [facility] UNK - Ambulatory Encounter Tiara Christianson MedAdherence Alayna Gu [facility] Contact Center UNK - Ambulatory Encounter Gautamwuekathya Hinduism [place] Jamarkwlinda Hinduism [place] [facility] UNK - Ambulatory Encounter Gautamwlinda Roa Nnabuife Gautamwlinda Roa N[facility]abuife [facility] UNK - Ambulatory Encounter Satinder Christianson MedAdherence [facility] UNK - Ambulatory Encounter Satinder Harman [facility] UNK - Ambulatory Encounter Fax Status LinkLogic [facility] UNK - Ambulatory Encounter Fax Status LinkLogic [facility] UNK - Ambulatory Encounter Fax Status LinkLogic [facility] UNK - Ambulatory Encounter Fax Status LinkLogic [facility] UNK - Ambulatory Encounter F[facility] Status [facility] UNK - Ambulatory Encounter Fax Status LinkLogic [facility] UNK - Ambulatory Encounter Satinder Montemayor [facility] UNK - Ambulatory Encounter Tiara Christianson MedAdherence Satinder Engel [facility] Contact Center UNK - Ambulatory Encounter Kimberly Leon Hinduism Nnabuife Edward Hinduism Nnabuife [facility] Contact Center UNK - Ambulatory Encounter Satinder Ghazal Christianson MedAdherence [facility] UNK - Ambulatory Encounter Satinder Harman LinkLogic [facility] UNK - Ambulatory Encounter Fax Status [facility] UNK - Ambulatory Encounter Kishanbrooke Sierra Christianson MedAdherence [facility] UNK - Ambulatory Encounter Edward Hinduism N[place] Jamarkwuekathya Hinduism Nnabuife LinkLogic [facility] UNK - Ambulatory Encounter Chukwuemejose j Hinduism [place] Chukwuemejose j Hinduism Nnabuife LinkLogic [facility] UNK - Ambulatory Encounter Chukwuemejose j Hinduism N[place] Chukwuemeka Hinduism Nnabuife [facility] UNK - Ambulatory Encounter Chukwlinda Hinduism N[place] Chukwuemeka Hinduism Nnabuife [facility] UNK - Ambulatory Encounter Chukwlinda Hinduism N[place] Chukwuemeka Hinduism Nnabuife [facility] UNK - Ambulatory Encounter Kishanridgekaylin Adamsmejose j Hinduism [place] Chukwuemejose j Hinduism Nnabuife [facility] BMI 60.0-69.9, adultBMI 50.0-59.9 - Ambulatory Encounter Alayna Nava [facility] UNK - Ambulatory Encounter Kayla Lipscomb [facility] UNK - Ambulatory Encounter Kaylakaylin VoRuel [facility] UNK - Ambulatory Encounter Edward Whiteabuinasir Kayla Ruel [facility] UNK - Ambulatory Encounter Satinder Christianson MedAdherence Kayla Reich [facility] UNK - Ambulatory Encounter Fax Status LinkLogic [facility] UNK - Ambulatory Encounter Fax Status LinkLogic [facility] UNK - Ambulatory Encounter Fax Status LinkLogic [facility] UNK - Ambulatory Encounter Fax Status LinkLogic [facility] UNK - Ambulatory Encounter Bhavya Pedersen MedAdherence Clementine Velasquez [facility] UNK - Ambulatory Encounter Edward Delgado [facility] UNK - Ambulatory Encounter Edward Whiteabjaimie [facility] UNK - Ambulatory Encounter Edward Whiteabuinasir [facility] UNK - Ambulatory Encounter Comfort [facility] restCHF exacerbation - Ambulatory Encounter Tiny Vazquez Mckeon Tiny Vazquez Mckeon [facility] UNK - Ambulatory Encounter Tiny Vazquez Mckeon Tiny Vazquez Mckeon [facility] BMI 50.0-59.9BMI 60.0-69.9, adult - Ambulatory Encounter Kayla Ruel [facility] UNK - Ambulatory Encounter Satinder Christianson [facility] Potts [facility] UNK - Ambulatory Encounter Violette Pool Kayla Lipscomb [facility] UNK - Ambulatory Encounter Edward Roa Nnabuife Edward Magañaian [facility] UNK - Ambulatory Encounter Edward Magañaian Cindyabuife Edward Hinduism Nnabuife [facility] UNK - Ambulatory Encounter Chuodilia Roa Nnabuife Edward Hinduism Nnabuife [facility] UNK - Ambulatory Encounter Edward Magañaian Nnabuife Edward Hinduism Nnabuife [facility] UNK - Ambulatory Encounter Edward Whiteabuife Edward Hinduism Nnabuife [facility] UNK - Ambulatory Encounter Gill Roa Nnabuife Edward Roa Nnabuife Violette Pool Hafsa Orellanaendez [facility] Acute upper respiratory infection - Ambulatory Encounter Bhavya Pedersen [facility] UNK - Ambulatory Encounter Satinder Harman [facility] UNK - Ambulatory Encounter Bhavya Pedersen [facility] Contact Center UNK - Ambulatory Encounter Comfort Trevino [facility] - Ambulatory Encounter Norma [facility] UNK - Ambulatory Encounter Fax Status [facility] UNK - Ambulatory Encounter Fax Status [facility] UNK - Ambulatory Encounter Fax Status [facility] UNK - Ambulatory Encounter Alayna Chapman [facility] UNK - Ambulatory Encounter Chuodilia Hinduism Nnabuife Edward Hinduism Nnabuife [facility] UNK - Ambulatory Encounter Chuodilia Hinduism Nnabuife Edward Hinduism Nnabuife [facility] UNK - Ambulatory Encounter Chuodilia Hinduism Nnabuife Edward Hinduism Nnabuife [facility] UNK - Ambulatory Encounter Satinder Leon Hinduism N[place] Edward Hinduism Nnabuife Priya Mars [facility] UNK - Ambulatory Encounter Parris Oleary [facility] UNK - Ambulatory Encounter Chukwlinda Hinduism Nn[place]uife Edward Hinduism Nnabuife LinkLogic [facility] UNK - Ambulatory Encounter Bhavya Pedersen MedAdherence Kirsten Florezwuekathya Hinduism Nnabuife Gautamwuekathya Hinduism Nnabuife Raysa Potts [facility] Contact Center UNK - Ambulatory Encounter Chukkavin Hinduism N[place]uife Jamarkwlinda Hinduism Nnabuife [facility] UNK - Ambulatory Encounter Chukakvin Hinduism N[place] Chukwuekathya Hinduism Nnabuife [facility] UNK - Ambulatory Encounter Chukwlinda Hinduism N[place] Jamarkwuekathya Hinduism Nnabuife [facility] UNK - Ambulatory Encounter Chukwlinda Hinduism N[place] Jamarkwuekathya Hinduism Nnabuife [facility] UNK - Ambulatory Encounter Gill Florezwuekathya Hinduism N[place]uife Jamarkwuemejose j Hinduism Nnabuife [facility] UNK - Ambulatory Encounter Bhavya Pedersen MedAdherence [facility] UNK - Ambulatory Encounter Kayla Serrano [facility] Contact Center UNK - Ambulatory Encounter Chukkavin Hinduism N[place]uife Jamarkwuekathya Hinduism Nnabuife [facility] UNK - Ambulatory Encounter Tab Chang [facility] UNK - Ambulatory Encounter Chukkavin Hinduism [place] Jamarkwuekathya Hinduism Nnabuife [facility] UNK - Ambulatory Encounter Chukwuemeka Hinduism Nnabuife Chukwuemeka Hinduism Nnabuife [facility] UNK - Ambulatory Encounter LSJ Lab Support Desktop LinkLogic Tab Roldankwuemeka Hinduism Nnabuife Chukwuemeka Hinduism Nnabuife [facility] UNK - Ambulatory Encounter Chukwuemeka Hinduism Nnabuife Chukwuemeka Hinduism Nnabuife [facility] UNK - Ambulatory Encounter Chukwuemeka Hinduism Nnabuife Chukwuemeka Hinduism Nnabuife [facility] UNK - Ambulatory Encounter Chukwuemeka Hinduism Nnabuife Chukwuemeka Hinduism Nnabuife [facility] UNK - Ambulatory Encounter Comfort Christianson MedAdherence Chukwuemejose j Hinduism Nnabuife Chukwuemeka Hinduism Nnabuife Marielena Reich [facility] Screening for diabetes mellitusScreening for lipid disorder - Ambulatory Encounter Chukwuemeka Hinduism Nnabuife Chukwuemeka Hinduism Nnabuife [facility] GERD - Ambulatory Encounter Chukwuemeka Hinduism Nnabuife Chukwuemeka Hinduism Nnabuife Stephanie Isabel [facility] UNK - Ambulatory Encounter Chukwuemeka Hinduism Nnabuife Chukwuemeka Hinduism Nnabuife [facility] UNK - Ambulatory Encounter Tab Roldankwlidna Hinduism Nnabuife Edward Hinduism Nnabuife Vivian Toro Toshia Mary [facility] Contact Center UNK - Ambulatory Encounter Chukkavin Hinduism Nnabuife Edward Hinduism Nnabuife [facility] UNK - Ambulatory Encounter Chuodilia Hinduism Nnabuife Edward Hinduism Nnabuife [facility] UNK - Ambulatory Encounter Chuodilia Hinduism Nnabuife Edward Hinduism Nnabuife [facility] UNK - Ambulatory Encounter Comfort Leon Hinduism Nnabuife Edward Hinduism Nnabuife [facility] Diabetes mellitus type II - Ambulatory Encounter Chuodilia Hinduism Nn[place]uife Edward Hinduism Nn[place]uife LinkLogic [facility] UNK - Ambulatory Encounter Chukkavin Hinduism N[place] Edward Hinduism Nn[place]uife LinkLogic [facility] UNK - Ambulatory Encounter Loly Winslow [facility] UNK - Ambulatory Encounter Chuodilia Hinduism N[place]abuife Edward Hinduism Nnabuife LinkLogic [facility] UNK - Ambulatory Encounter Chuodilia Hinduism Nnabuife Edward Hinduism Nnabuife [facility] UNK - Ambulatory Encounter Chukkavin Hinduism Nnabuife Edward Hinduism Nnabuife [facility] UNK - Ambulatory Encounter Chukkavin Hinduism Nnabuife Edward Hinduism Nnabuife [facility] UNK - Ambulatory Encounter Chuodilia Hinduism Nnabuife Edward Hinduism Nnabuife [facility] UNK - Ambulatory Encounter Satinder Leon Hinduism Nnabuife Edward Hinduism Nnabuife [facility] UNK - Ambulatory Encounter Tiara Christianson MedAdherence [facility] UNK - Ambulatory Encounter Bhavya Pedersen MedAdherence [facility] UNK - Ambulatory Encounter Bhavya Pedersen MedAdherence LinkLogic [facility] UNK - Ambulatory Encounter Titi Kaitlynn Titi Kaitlynn LinkLogic [facility] UNK - Ambulatory Encounter Chuodilia Hinduism Nnabuife Edward Hinduism Nnabuife LinkLogic [facility] UNK - Ambulatory Encounter Chuodilia Hinduism Nnabuife Edward Hinduism Nnabuife LinkLogic [facility] UNK - Ambulatory Encounter Chuodilia Hinduism Nnabuife Edward Hinduism Nnabuife [facility] UNK - Ambulatory Encounter Chuodilia Hinduism Nnabuife Edward Hinduism Nnabuife [facility] UNK - Ambulatory Encounter Chuodilia Hinduism Nnabuife Edward Hinduism Nnabuife [facility] UNK - Ambulatory Encounter Chukwuemeka Hinduism Nnabuife Edward Roa Nnabuife [facility] UNK - Ambulatory Encounter Comfort Roa abuinasir Leon [facility] Abdominal distensionAbdominal pain, chronicAscitesUrinary retention - Ambulatory Encounter Tiara Christianson MedAdherence [facility] UNK - Ambulatory Encounter Tiara Christianson MedAdherence [facility] - Ambulatory Encounter Tiara Christianson [facility]herence [facility] UNK - Ambulatory Encounter Comfort Trevino [facility] UNK - Ambulatory Encounter Mae Rashaun [facility] UNK - Ambulatory Encounter Fax Status [facility] UNK - Ambulatory Encounter Fax Status [facility] UNK - Ambulatory Encounter Fax Status LinkLogic [facility] UNK - Ambulatory Encounter Fax Status LinkLogic [facility] UNK - Ambulatory Encounter Fax Status LinkLogic [facility] UNK - Ambulatory Encounter Fax Status [facility] UNK - Ambulatory Encounter Edward Roa Nnabjaimie Leon [facility] - Ambulatory Encounter Edward Roa abuinasir Leon [facility] [place] UNK - Ambulatory Encounter Edward Hinduism Nnabuife Edward Hinduism Nnabuife [facility] UNK - Ambulatory Encounter Toma Woodsrony Chua Woods [facility] Mood Disorder, NOS - Ambulatory Encounter Yonnydarryl Sierra Stephanie Roa Nnabuife Edward Hinduism Nnabuife Vivian Matthews [facility] Depression, majorSuicidal ideation - Ambulatory Encounter Comfort Trevino [facility] UNK - Ambulatory Encounter Tiara CisnerosAdherfaheem [facility] UNK - Ambulatory Encounter Bhavya Pedersen MedAdherence [facility] UNK - Ambulatory Encounter Bhavya Pedersen MedAdherence LinkLogic [facility] UNK - Ambulatory Encounter Edward Hinduism Nnabuife Edward Hinduism Nnabuife [facility] UNK - Ambulatory Encounter Edward Hinduism Nnabuife Edward Hinduism Nnabuife [facility] UNK - Ambulatory Encounter Edward Hinduism Nnabuife Edward Hinduism Nnabuife [facility] UNK - Ambulatory Encounter Edward Hinduism Nnabuife Edward Hinduism Nnabuife [facility] UNK - Ambulatory Encounter Edward Hinduism Nnabuife Edward Hinduism Nnabuife [facility] UNK - Ambulatory Encounter Gill Leon Hinduism Nnabuife Edward Hinduism Nnabuife [facility] UNK - Ambulatory Encounter Loly Goldy [facility] UNK - Ambulatory Encounter Tiara Christianson [facility] - Ambulatory Encounter Chuodilia Hinduism Nnabuife Edward Hinduism Nnabuife [facility] UNK - Ambulatory Encounter Bhavya Pedersen MedAdherence [facility] UNK - Ambulatory Encounter Bhavya Pedersen [facility] UNK - Ambulatory Encounter Edward Magañaian Nnabuife Edward Hinduism Nnabuife Tab Matthews [facility] UNK - Ambulatory Encounter Comfort Trevino [facility] UNK - Ambulatory Encounter Edward Whiteabuife Edward Hinduism Nnabuife [facility] UNK - Ambulatory Encounter Chuodilia Hinduism Nnabuife Gautamwlinda Hinduism Nnabuife [facility] UNK - Ambulatory Encounter Chuodilia Hinduism Nn[place]uife Gautamwlinda Hinduism Nnabuife [facility] UNK - Ambulatory Encounter Chuodilia Hinduism Nnabuife Edward Hinduism Nnabuife [facility] UNK - Ambulatory Encounter Comfort Roldankwuekathya Hinduism Nnabuife Edward Hinduism Nnabuife [facility] COPD with exacerbation - Ambulatory Encounter Tiara Sammy MedAdherence [facility] UNK - Ambulatory Encounter Tiara Sammy MedAdherence Loly Kaminskicey Sabiha [facility] UNK - Ambulatory Encounter Tiaratravis Christianson MedAdherence [facility] UNK - Ambulatory Encounter Edward Whiteabjaimie Magañaian Nnabuife [facility] UNK - Ambulatory Encounter Edward Whiteabuinasir Magañaian Nnabuife [facility] UNK - Ambulatory Encounter Gill Florezwuekathya Roa Nnabuife Gautamwuekathya Hinduism Nnabuife [facility] UNK - Ambulatory Encounter Loly Winslow Donna Sabiha [facility] UNK - Ambulatory Encounter Edward Whiteabuife Edward Hinduism Nnabuife [facility] UNK - Ambulatory Encounter Loly Goldy Donna Sabiha [facility] UNK - Ambulatory Encounter Fax Status LinkLogic [facility] UNK - Ambulatory Encounter [facility] Status [facility] UNK - Ambulatory Encounter Fax Status [facility] UNK - Ambulatory Encounter Fax Status LinkLogic [facility] UNK - Ambulatory Encounter Fax Status [facility]Logic [facility] UNK - Ambulatory Encounter Fax Status LinkLogic [facility] UNK - Ambulatory Encounter Titi Kaitlynn Titi Kaitlynn [facility] UNK - Ambulatory Encounter Titi Kaitlynn Titi Kaitlynn [facility] UNK - Ambulatory Encounter Titi Kaitlynn Titi Kaitlynn [facility] UNK - Ambulatory Encounter Lo Gu Titi Kaitlynn Titi [facility] MUSCLE SPASMEAR PAIN, RIGHTCandidal vaginitisOtitis media, acute - Ambulatory Encounter Satinder Gu [facility] UNK - Ambulatory Encounter Fax Status LinkLogic [facility] UNK - Ambulatory Encounter Fax Status LinkLogic [facility] UNK - Ambulatory Encounter Fax Status LinkLogic [facility] UNK - Ambulatory Encounter Bhavya Pedersen José Miguel Viramontes Palacio [facility] UNK - Ambulatory Encounter Edward Roa Nnabuife Gautamwuekathya Roa Nnabuife [facility] UNK - Ambulatory Encounter Satinder Florezwlinda Whiteabuife Edward Magañaian Nnabuife Ayanna Matthews [facility] Breast abnormal findingsChronic bronchitisBMI 50.0-59.9 - Ambulatory Encounter Comfort Trevino [facility] UNK - Ambulatory Encounter Tiara Christianson MedAdherence [facility] UNK - Ambulatory Encounter Tiara Christianson MedAdherence [facility] UNK - Ambulatory Encounter Bhavya Pedersen MedAdherence [facility] UNK - Ambulatory Encounter Bhavya Pedersen MedAdherence [facility] UNK - Ambulatory Encounter Lo Sierra [facility] UNK - Ambulatory Encounter Lo Esquivel [facility] UNK - Ambulatory Encounter Bhavya Pedersen MedAdherence Stephanie Hernandez [facility] UNK - Ambulatory Encounter Maddarryl Sierra [facility] UNK - Ambulatory Encounter Maddarryl Sierra [facility] UNK - Ambulatory Encounter Madhumitkaylin Sierra [facility] UNK - Ambulatory Encounter Nupur Chong [facility] UNK - Ambulatory Encounter Nupur Chong [facility] UNK - Ambulatory Encounter Edwin Umana [facility] UNK - Ambulatory Encounter Edwin Umana [facility] UNK - Ambulatory Encounter dEwin Umana [facility] UNK - Ambulatory Encounter Comfort Gamino [facility] MORBID OBESITYOtitis media, acute - Ambulatory Encounter Fabricio Beard [facility] UNK - Ambulatory Encounter Lo Esquivel [facility] UNK - Ambulatory Encounter Lo Hammondsierrez [facility] Candidal vaginitis - Ambulatory Encounter Lo Esquivel [facility] - Ambulatory Encounter Breana Rosario [facility] UNK - Ambulatory Encounter Breana Rosario [facility] UNK - Ambulatory Encounter Mary Soto [facility] UNK - Ambulatory Encounter Fabricio Beard [facility] UNK - Ambulatory Encounter Bria Young [facility] UNK - Ambulatory [facility] UNK - Ambulatory Encounter [facility]ricio Beard [facility] UNK - Ambulatory Encounter Gita Dewey [facility] UNK - Ambulatory Encounter Comfort Trevino [facility] UNK - Ambulatory Encounter Bhavya Nuvia CisnerosAdherfaheem [facility] UNK - Ambulatory Encounter Comfort Trevino [facility] UNK - Ambulatory Encounter Carmelina Gu [employer] [employer] [facility] UNK - Ambulatory Encounter Jan Johnson [facility] Specialist UNK - Ambulatory Encounter Fax Status [facility] UNK - Ambulatory Encounter Fax Status [facility] UNK - Ambulatory Encounter Fax Status Link[facility] UNK - Ambulatory Encounter Deniz Lira [facility] UNK - Ambulatory Encounter Bhavya Pedersen MedAdherence [facility] UNK - Ambulatory Encounter Comfort Trevino [facility] UNK - Ambulatory Encounter Comfort Trevino [facility] UNK - Ambulatory Encounter Comfort Trevino [facility] UNK - Ambulatory Encounter Fax Status LinkLogic [facility] UNK - Ambulatory Encounter Fax Status LinkLogic [facility] UNK - Ambulatory Encounter Comfort Trevino Link[facility] UNK - Ambulatory Encounter Fax Status LinkLogic [facility] UNK - Ambulatory Encounter Fax Status LinkLogic [facility] UNK - Ambulatory Encounter Comfort Trevino Link[facility] UNK - Ambulatory Encounter Comfort Trevino LinkLog[facility] UNK - Ambulatory Encounter Comfort Trevino Link[facility] UNK - Ambulatory Encounter Comfort Trevino [facility] UNK - Ambulatory Encounter Kimberly Latif Pedersen MedAdherence Comfort Feldman [facility] UNK - Ambulatory Encounter Kimberly Trevino [facility] UNK - Ambulatory Encounter Tab Chang [facility] UNK - Ambulatory Encounter Fax Status [facility] UNK - Ambulatory Encounter Fax Status [facility] UNK - Ambulatory Encounter Fax Status Link[facility] UNK - Ambulatory Encounter Kimberly Trevino [facility] UNK - Ambulatory Encounter Comfort Trevino [facility] UNK - Ambulatory Encounter Comfort TorresLogedward [facility] - Ambulatory Encounter Fax Status Link[facility] UNK - Ambulatory Encounter Jenny Gaston [facility] UNK - Ambulatory Encounter Fax Status Link[facility] UNK - Ambulatory Encounter Fax Status [facility] UNK - Ambulatory Encounter Comfort TorresLogic [facility] UNK - Ambulatory Encounter Kimberly Trevino [facility] UNK - Ambulatory Encounter Comfort TorresLogedward Kimberly Jorgensen [facility] UNK - Ambulatory Encounter Jenny Gaston [facility] UNK - Ambulatory Encounter Gosia Trevino [facility] UNK - Ambulatory Encounter Comfort TorresLogedward Mayes [facility] UNK - Ambulatory Encounter Comfort Tellez [facility] CHRONIC OBSTRUCTIVE PULMONARY DISEASE, ACUTE EXACERBATIONCHFSLEEP APNEA - Ambulatory Encounter Gill Villafuerte [facility] - [facility]ulatory Encounter Fax Status [facility] UNK - Ambulatory Encounter Fax Status LinkLogic [facility] UNK - Ambulatory Encounter Fax Status [facility] UNK - Ambulatory Encounter Fax Status [facility] UNK - Ambulatory Encounter Fax Status [facility] UNK - Ambulatory Encounter Fax Status [facility] UNK - Ambulatory Encounter Fax Status [facility] UNK - Ambulatory Encounter Jenny Gaston [facility] UNK - Ambulatory Encounter Thea Lambshmorgan Caputoserenakaylin Rosalinda [facility] LOW BACK PAIN - Ambulatory Encounter Sabra Stephen [facility] UNK - Ambulatory Encounter Sabra Stephen [facility] UNK - Ambulatory Encounter Ernesto Gaffney [facility] DEPENDENT EDEMA, LEGS - Ambulatory Encounter [facility]hav[facility]ermudezo [facility] - [facility]ulatory Encounter Bhavya Pedersen [facility] LinkLogic [facility] UNK - Ambulatory Encounter Jonelle Klein [facility] UNK - Ambulatory Encounter Jonelle Klein [facility] UNK - Ambulatory Encounter Jonelle [facility] UNK - Ambulatory Encounter Jonelle [facility] UNK - Ambulatory Encounter Jonelle Klein [facility] UNK - Ambulatory Encounter Malena Isabel [facility] UNK - Ambulatory Encounter Ernesto Matthews [facility] EAR PAIN, RIGHTBLURRED VISIONHEARING DEFICIT - Ambulatory Encounter Zoroastrianism Preload LinkLogic [facility] UNK - Ambulatory Encounter Zoroastrianism Preload LinkLogic [facility] UNK - Ambulatory Encounter Zoroastrianism Preload LinkLogic [facility] UNK - Ambulatory Encounter Zoroastrianism Preload LinkLogic [facility] UNK - Ambulatory Encounter Zoroastrianism Preload LinkLogic [facility] UNK - Ambulatory Encounter Zoroastrianism Preload LinkLogic [facility] UNK - Ambulatory Encounter Zoroastrianism Preload LinkLogic [facility] UNK - Ambulatory Encounter Zoroastrianism Preload LinkLogic [facility] UNK - Ambulatory Encounter Zoroastrianism Preload LinkLogic [facility] UNK - Ambulatory Encounter Zoroastrianism Preload LinkLogic [facility] UNK - Ambulatory Encounter Zoroastrianism Preload LinkLogic [facility] UNK - Ambulatory Encounter Zoroastrianism Preload LinkLogic [facility] UNK - Ambulatory Encounter Zoroastrianism Preload LinkLogic [facility] UNK - Ambulatory Encounter Zoroastrianism Preload LinkLogic [facility] UNK - Ambulatory Encounter Zoroastrianism Preload LinkLogic [facility] UNK - Ambulatory Encounter Zoroastrianism Preload LinkLogic [facility] UNK - Ambulatory Encounter Zoroastrianism Preload LinkLogic [facility] UNK - Ambulatory Encounter Zoroastrianism Preload LinkLogic [facility] UNK - Ambulatory Encounter Zoroastrianism Preload LinkLogic [facility] UNK - Ambulatory Encounter Zoroastrianism Preload LinkLogic [facility] UNK - Ambulatory Encounter Zoroastrianism Preload LinkLogic [facility] UNK - Ambulatory Encounter Zoroastrianism Preload LinkLogic [facility] UNK - Ambulatory Encounter Zoroastrianism Preload LinkLogic [facility] UNK - Ambulatory Encounter Zoroastrianism Preload LinkLogic [facility] UNK - Ambulatory Encounter Zoroastrianism Preload LinkLogic [facility] UNK - Ambulatory Encounter Zoroastrianism Preload LinkLogic [facility] UNK - Ambulatory Encounter Zoroastrianism Preload LinkLogic [facility] UNK - Ambulatory Encounter Zoroastrianism Preload LinkLogic [facility] UNK - Ambulatory Encounter Zoroastrianism Preload LinkLogic [facility] UNK - Ambulatory Encounter Zoroastrianism Preload LinkLogic [facility] UNK - Ambulatory Encounter Zoroastrianism Preload LinkLogic [facility] UNK - Ambulatory Encounter Zoroastrianism Preload LinkLogic [facility] UNK - Ambulatory Encounter Zoroastrianism Preload LinkLogic [facility] UNK - Ambulatory Encounter Zoroastrianism Preload LinkLogic [facility] UNK - Ambulatory Encounter Zoroastrianism Preload LinkLogic [facility] UNK - Ambulatory Encounter Zoroastrianism Preload LinkLogic [facility] UNK - Ambulatory Encounter Zoroastrianism Preload LinkLogic [facility] UNK - Ambulatory Encounter Zoroastrianism Preload LinkLogic [facility] UNK - Ambulatory Encounter Zoroastrianism Preload LinkLogic [facility] UNK - Ambulatory Encounter Zoroastrianism Preload LinkLogic [facility] UNK - Ambulatory Encounter Zoroastrianism Preload LinkLogic [facility] UNK - Ambulatory Encounter Zoroastrianism Preload LinkLogic [facility] UNK - Ambulatory Encounter Zoroastrianism Preload LinkLogic [facility] UNK - Ambulatory Encounter Zoroastrianism Preload LinkLogic [facility] UNK - Ambulatory Encounter Zoroastrianism Preload LinkLogic [facility] UNK - Ambulatory Encounter Zoroastrianism Preload LinkLogic [facility] UNK - Ambulatory Encounter Zoroastrianism Preload LinkLogic [facility] UNK - Ambulatory Encounter Zoroastrianism Preload LinkLogic [facility] UNK - Ambulatory Encounter Zoroastrianism Preload LinkLogic [facility] UNK - Ambulatory Encounter Zoroastrianism Preload LinkLogic [facility] UNK - Ambulatory Encounter Zoroastrianism Preload LinkLogic [facility] UNK - Ambulatory Encounter Zoroastrianism Preload LinkLogic [facility] UNK - Ambulatory Encounter Zoroastrianism Preload LinkLogic [facility] UNK - Ambulatory Encounter Zoroastrianism Preload LinkLogic [facility] UNK - Ambulatory Encounter Zoroastrianism Preload LinkLogic [facility] UNK - Ambulatory Encounter Zoroastrianism Preload LinkLogic [facility] UNK - Ambulatory Encounter Zoroastrianism Preload LinkLogic [facility] UNK - Ambulatory Encounter Zoroastrianism Preload LinkLogic [facility] UNK - Ambulatory Encounter Zoroastrianism Preload LinkLogic [facility] UNK - Ambulatory Encounter Zoroastrianism Preload LinkLogic [facility] UNK - Ambulatory Encounter Zoroastrianism Preload LinkLogic [facility] UNK - Ambulatory Encounter Zoroastrianism Preload LinkLogic [facility] UNK - Ambulatory Encounter Zoroastrianism Preload LinkLogic [facility] UNK - Ambulatory Encounter Zoroastrianism Preload LinkLogic [facility] UNK - Ambulatory Encounter Zoroastrianism Preload LinkLogic [facility] UNK - Ambulatory Encounter Zoroastrianism Preload LinkLogic [facility] UNK - Ambulatory Encounter Zoroastrianism Preload LinkLogic [facility] UNK - Ambulatory Encounter Zoroastrianism Preload LinkLogic [facility] UNK - Ambulatory Encounter Sharpe Vo Sharpe Vo LinkLogic [facility] UNK - Ambulatory Encounter Zoroastrianism Preload LinkLogic [facility] UNK - Ambulatory Encounter Zoroastrianism Preload LinkLogic [facility] UNK - Ambulatory Encounter Zoroastrianism Preload LinkLogic [facility] UNK - Ambulatory Encounter Zoroastrianism Preload LinkLogic [facility] UNK - Ambulatory Encounter Zoroastrianism Preload LinkLogic [facility] UNK - Ambulatory Encounter Zoroastrianism Preload LinkLogic [facility] UNK - Ambulatory Encounter Zoroastrianism Preload LinkLogic [facility] UNK - Ambulatory Encounter Zoroastrianism Preload LinkLogic [facility] UNK - Ambulatory Encounter Zoroastrianism Preload LinkLogic [facility] UNK - Ambulatory Encounter Zoroastrianism Preload LinkLogic [facility] UNK - Ambulatory Encounter Zoroastrianism Preload LinkLogic [facility] UNK - Ambulatory Encounter Zoroastrianism Preload LinkLogic [facility] UNK - Ambulatory Encounter Zoroastrianism Preload LinkLogic [facility] UNK - Ambulatory Encounter Zoroastrianism Preload LinkLogic [facility] UNK - Ambulatory Encounter Zoroastrianism Preload LinkLogic [facility] UNK - Ambulatory Encounter Zoroastrianism Preload LinkLogic [facility] UNK - Ambulatory Encounter Zoroastrianism Preload LinkLogic [facility] UNK - Ambulatory Encounter Zoroastrianism Preload LinkLogic [facility] UNK - Ambulatory Encounter Zoroastrianism Preload LinkLogic [facility] UNK - Ambulatory Encounter Zoroastrianism Preload LinkLogic [facility] UNK - Ambulatory Encounter Zoroastrianism Preload LinkLogic [facility] UNK - Ambulatory Encounter Zoroastrianism Preload LinkLogic [facility] UNK - Ambulatory Encounter Zoroastrianism Preload LinkLogic [facility] UNK - Ambulatory Encounter Zoroastrianism Preload LinkLogic [facility] UNK - Ambulatory Encounter Zoroastrianism Preload LinkLogic [facility] UNK - Ambulatory Encounter Zoroastrianism Preload LinkLogic [facility] UNK - Ambulatory Encounter Zoroastrianism Preload LinkLogic [facility] UNK - Ambulatory Encounter Zoroastrianism Preload LinkLogic [facility] UNK - Ambulatory Encounter Zoroastrianism Preload LinkLogic [facility] UNK - Ambulatory Encounter Zoroastrianism Preload LinkLogic [facility] UNK - Ambulatory Encounter Zoroastrianism Preload LinkLogic [facility] UNK - Ambulatory Encounter Zoroastrianism Preload LinkLogic [facility] UNK - Ambulatory Encounter Zoroastrianism Preload LinkLogic [facility] UNK - Ambulatory Encounter Zoroastrianism Preload LinkLogic [facility] UNK - Ambulatory Encounter Zoroastrianism Preload LinkLogic [facility] UNK - Ambulatory Encounter Zoroastrianism Preload LinkLogic [facility] UNK - Ambulatory Encounter Zoroastrianism Preload [facility] - [facility] En[facility] Zoroastrianism [facility]reload [facility] UNK - Ambulatory Encounter Zoroastrianism Preload [facility] UNK - Ambulatory Encounter Zoroastrianism Preload [facility] UNK - Ambulatory Encounter Zoroastrianism Preload [facility] UNK - Ambulatory Encounter Colleen [facility] UNK - Ambulatory Encounter Annemarie Gaffney [facility] UNK - Ambulatory Encounter Gill Villafuerte [facility] Annemarie Gaffney [facility] UNK - Ambulatory Encounter Gill Gaspars Annemarie Gaffney [facility] UNK - Ambulatory Encounter Gill Villafuerte [facility] UNK - Ambulatory Encounter Annemarie Carronez Bhavya Pedersen MedAdherence [facility] UNK - Ambulatory Encounter Gill Villafuerte [facility] UNK - Ambulatory Encounter Gill Gutierrez [facility] COPDNICOTINE ADDICTIONSARCOIDOSISHYPERTENSIONMUSCLE SPASM - Ambulatory En[facility] V[facility] SIGNS Date Observation Value Provider method used to obtain blood pressure automatic Francesca Diana " Blood [facility] 01 [facility] " [facility], site #1 left [facility] " oxygen saturation, oximetry 95 % [facility] " blood pressure, diastolic 83 mm[Hg] [facility] " blood pressure, systolic 129 mm[Hg] [facility] " respiratory rate E&M 18 /min [facility] " pulse rate E&M 99 /min Edward Rao Nnuife " temperature site oral [facility] " temperature E&M 98.0 [degF] Francesca [facility] " weight E&M 326.20 lbs. [facility] " weight in kilograms E&M 148.27 kg [facility] " height in centimeters E&M 154.94 cm [facility] " height E&M 61 [in_i] [facility] method used to obtain blood pressure automatic [facility] " Blood Pressure Position 01 sitting [facility] " blood pressure, site #1 left arm [facility] " oxygen saturation, oximetry 98 % [facility] " blood pressure, diastolic 84 mm[Hg] [facility] " blood pressure, systolic 135 mm[Hg] [facility] E&M 18 /min [facility] " pulse rate E&M 98 /min [facility] " temperature site oral [facility] " temperature E&M 98.4 [degF] Francesca [facility] " weight E&M 321.80 lbs. Francesca [facility] " weight in kilograms E&M 146.27 kg [facility] " height in centimeters E&M 154.94 cm [facility] " height E&M 61 [in_i] [facility], oximetry 94 % Nupur Chong [...] Nupur Chong " weight E&M 320.20 lbs. Nupur Chong " weight in kilograms E&M 145.55 [...] " blood pressure, systolic 128 mm[Hg] Edward Delgado " respiratory rate E&M 17 /min Stephanie [...] 154.94 cm Stephanie Chalo oxygen saturation, oximetry 95 % Nupur Chong [...] 154.94 cm Stephanie Isabel oxygen saturation, oximetry 90 % Hafsa Will [...] Jerad " weight E&M 329 lbs. Priya Mars " weight in kilograms E&M 149.55 kg Priya Mars " method used to obtain blood pressure automatic Priya Mars " Blood Pressure Position 01 sitting Priya Mars " blood pressure, site #1 left arm Priya Mars " temperature site oral Priya Mars " height E&M 61 [in_i] Priya Mars " height in centimeters E&M 154.94 cm Priya Mars oxygen saturation, oximetry 93 % Alayna Chapman [...] height in centimeters E&M 154.94 cm Vivian Sin oxygen saturation, oximetry 96 % Stephanie Isabel " method used to obtain blood pressure automatic Stephanie Isabel " Blood Pressure Position 01 sitting Stephanie Isabel " blood pressure, site #1 left arm Stephanie Isabel " blood pressure, diastolic 73 mm[Hg] Stephanie Isabel " blood pressure, systolic 110 mm[Hg] Stephanie Isabel " respiratory rate E&M 22 /min Stephanie Isabel " pulse rate E&M 105 /min Stephanie Isabel " temperature site oral Stephanie Isabel " temperature E&M 98.1 [degF] Stephanie Isabel " weight E&M 317 lbs. Stephanie Isabel " weight in kilograms E&M 144.09 kg Stephanie Isabel " height E&M 61 [in_i] Stephanie Isabel " height in centimeters E&M 154.94 cm Stephanie Isabel oxygen saturation, oximetry 92 % Nupur Chong " method used to obtain blood pressure automatic Nupurstephen Chong " Blood Pressure Position 01 sitting [...] arm Taina Gu " blood pressure, diastolic 70 mm[Hg] Taina Gu " blood pressure, systolic 109 mm[Hg] Taina Gu " respiratory rate E&M 20 /min Taina Gu " pulse rate E&M 98 /min Taina Gu " temperature site oral Taina Gu " temperature E&M 98.1 [degF] Taina [...] arm Taina Gu " blood pressure, diastolic 82 mm[Hg] Taina [...] Gu " Blood Pressure Position 01 sitting Tainakaylin Gu " blood pressure, site #1 left arm Taina Gu " blood pressure, diastolic 81 mm[Hg] Taina Gu " blood pressure, systolic 162 mm[Hg] Taina Gu " respiratory rate E&M 22 /min Taina Gu " pulse rate E&M 111 /min Taina Gu " temperature site tympanic Taina Gu " [...] " respiratory rate E&M 17 /min Francesca Stevenson " pulse rate E&M 93 /min Francesca Gamino " temperature E&M 98.3 [degF] Rfancesca Gamino " method used to obtain blood pressure automatic Francescalloyd Gamino " Blood Pressure Position 01 sitting Francescalloyd Gamino " blood pressure, site #1 right arm Francescalloyd Gamino " temperature site oral Francesca Gamino " weight E&M 274.38 lbs. Francescalloyd Gamino " weight in kilograms E&M 124.72 kg Francesca Gamino " height E&M 61 [in_i] Francesca Gamino " height in centimeters E&M 154.94 cm Francescalloyd Gamino oxygen saturation, oximetry 96 % Francesca Gamino " blood pressure, diastolic 82 mm[Hg] Francesca Gamino " blood pressure, systolic 124 mm[Hg] Francesca Gamino " respiratory rate E&M 17 /min Francesca Gamino " pulse rate E&M 89 /min Francesca Gamino " temperature E&M 98.4 [degF] Francesca Gamino " method used to obtain blood pressure manual Francescalloyd Gamino " Blood Pressure Position 01 sitting Francesca Gamino " blood pressure, site #1 right arm Francesca Parkerrez " temperature site oral Francesca Parkerrez " weight E&M 287.38 lbs. Francesca Parkerrez " weight in kilograms E&M 130.63 kg Francesca Parkerrez " height E&M 61 [in_i] Francesca Parkerrez " height in centimeters E&M 154.94 cm Francesca Parkerrez method used to obtain blood pressure manual Mona Lira " Blood Pressure Position 01 sitting Mona [...] [facility] " oxygen saturation, oximetry 93 % [facility] " pulse rate E&M 100 /min [facility] [...] [facility] " oxygen saturation, oximetry 87 % [facility] blood pressure, systolic 130 mm[Hg] [facility] " [...] [facility] " oxygen saturation, oximetry 96 % [facility] " blood pressure, systolic 130 mm[Hg] [facility] " weight E&M 269.00 lbs. [facility] blood pressure, systolic 102 mm[Hg] [facility] " blood pressure, diastolic 70 mm[Hg] [facility] " weight E&M 266.80 lbs. [facility] " respiratory rate E&M 22 /min [facility] " pulse rate E&M 92 /min [facility] " temperature E&M 98.0 [degF] [facility] " oxygen saturation, oximetry 98 % [facility] [...] Colleen Pace oxygen saturation, oximetry 97 % Honey Gutierrez " pulse rate E&M 98 /min Honey Gutierrez " weight E&M 272 lbs. Honey Gutierrez " weight in kilograms E&M 123.64 kg Honey Brenda " height E&M 61 [in_i] Honey Gutierrez " height in centimeters E&M 154.94 cm Honeyniru Gutierrez " respiratory rate E&M 24 /min Honey Brenda " method used to obtain blood pressure manual Honey Gutierrez " Blood Pressure Position 01 sitting Honeytejas Gutierrez " blood pressure, site #1 right arm Honey Brenda " blood pressure, diastolic 90 mm[Hg] Honey Brenda " blood pressure, systolic 118 mm[Hg] Honey Brenda " temperature site oral Honey Brenda " temperature E&M 98.7 [degF] Honey Gutierrez ALLERGIES Allergy Name Onset Date Reaction Criticality Status VICODIN swelling, rashes all over skin High Criticality active LEVAQUIN Breakout in Hives High Criticality active REASON FOR REFERRAL Start Date - End Date Service - Xray - Ophthalmology - External - Pain Management - External - Cardiology - External - Xray - Pulmonology - External - Xray - Chest - PA & Lat - InHouse RESULTS Date Observation Value Provider Reference Range Interpretation Location alanine aminotransferase (SGPT), serum 39 1/L [facility] 0-32 High " aspartate aminotransferase (SGOT), serum 32 1/L [facility] 0-40 " alkaline phosphatase, serum 101 1/L [facility] 39-117 " bilirubin, serum, total <0.2 mg/dL [facility] 0.0-1.2 " albumin/globulin ratio, serum 1.6 [facility] 1.2-2.2 " globulin, serum 3.0 [facility] 1.5-4.5 " albumin, serum 4.7 g/dL [facility] 3.8-4.8 " protein, total, serum 7.7 g/dL [facility] 6.0-8.5 " calcium, serum 10.2 mg/dL [facility] 8.7-10.2 " carbon dioxide, venous blood 32 mmol/L [facility] 20-29 High " chloride, serum 91 mmol/L [facility] 96-106 Low " potassium, serum 4.4 mmol/L [facility] 3.5-5.2 " sodium, serum 143 mmol/L [facility] 134-144 " urea nitrogen/creatinine ratio, serum 11 [facility] 9-23 " eGFR if 82 mL/min/((173/100).m2) [facility] >59 " Estimated Glomerular Filtration Rate (calc) 71 mL/min/((173/100).m2) [facility] >59 " creatinine, serum 0.96 mg/dL [facility] 0.57-1.00 " urea nitrogen, blood 11 mg/dL [facility] 6-24 " blood glucose, random 145 mg/dL [facility] 65-99 High " immature granulocytes, percentage of total cells, blood 1 % [facility] Not Estab. " basophil count, absolute 0.0 x10E3/uL [facility] 0.0-0.2 " Eosinophil Absolute Count 0.1 X10E3/UL [facility] 0.0-0.4 " monocyte count, blood, automated 0.4 X10E3/UL [facility] 0.1-0.9 " lymphocyte count, blood, automated 1.7 X10E3/UL [facility] 0.7-3.1 " Absolute Neutrophils 8.4 X10E3/UL [facility] 1.4-7.0 High " basophils as percent of blood leukocytes 0 % [facility] Not Estab. " eosinophils as percent of blood leukocytes 1 % [facility] Not Estab. " monocytes as percent of blood leukocytes 4 % [facility] Not Estab. " lymphocytes as percent of blood leukocytes 16 % [facility] Not Estab. " neutrophils as percent of blood leukocytes 78 % [facility] Not Estab. " platelet count 456 X10E3/UL [facility] 150-450 High " red blood cell distribution width 14.4 % [facility] 11.7-15.4 " mean corpuscular hemoglobin concentration, RBC 29.6 G/DL [facility] 31.5-35.7 Low " mean corpuscular hemoglobin, RBC 27.9 pg [facility] 26.6-33.0 " mean corpuscular volume, RBC 94 fL [facility] 79-97 " hematocrit, blood 36.2 % [facility] 34.0-46.6 " hemoglobin, blood 10.7 g/dL [facility] 11.1-15.9 Low " erythrocyte (RBC) count 3.84 X10E6/UL [facility] 3.77-5.28 " leukocyte count, blood 10.7 X10E3/UL [facility] 3.4-10.8 hemoglobin A1C, blood, as % of total hemoglobin 8.2 % Edward Roa Nnabuife alanine aminotransferase (SGPT), serum 50 1/L [facility] [...] of total hemoglobin 8.3 % Edward Roa [facility] hematocrit, blood 37.6 % Kayla Lipscomb " hemoglobin, blood 11.0 g/dL Kayla Lipscomb " leukocyte count, blood 9.9 10*3/mm3 Kayla Lipscomb " Estimated Glomerular Filtration Rate (calc) 90 mL/min/((173/100).m2) Kayla Lipscomb " creatinine, serum 0.80 mg/dL Kayla Ruel " urea nitrogen, blood 12 mg/dL Kayla Ruel " potassium, serum 3.6 mmol/L Kayla Lipscomb [...] MEDICATION USE Medication Instructions Dates Provider Comments DOXYCYCLINE HYCLATE 100 MG ORAL CAPSULE 1 by mouth twice a day Edward Delgado ERYTHROMYCIN 5 MG/GM OPHTHALMIC OINTMENT apply 1 ribbon to affected eye 6 times a day Edward Delgado POTASSIUM CHLORIDE ANDREAS ER 20 MEQ ORAL [...] drops in each ear Twice a Day Chukwuemeka Hinduism Nnabuife NEBULIZER Please use as indicated Opallinda Roa Cindyabuife METFORMIN HCL 1000 MG TABS TAKE 1 TABLET BY MOUTH TWICE DAILY Tiara Christianson [facility] MUCINEX 600 MG ORAL TABLET EXTENDED RELEASE 12 HOUR take 1 tablet twice a day Jamarvidhyakavin Roa Austenuife TESSALON PERLES 100 MG ORAL CAPSULE 1 by mouth 3 times a day as needed for cough Jamarvidhyafabiánkathya Roa Austenuife CONTRAVE 8-90 MG ORAL TABLET EXTENDED RELEASE 12 HOUR 1 tab in the am x 1 week, then 1 tab Twice a Day x 1 week , then 2 tab in the am and 1 tab in the pm x1 week, then 2 tab twice a day Jamarvidhyakavin Roa Danny METFORMIN 500MG TAB TAKE 1 TABLET BY MOUTH ONCE DAILY [facility] FREESTYLE LANCETS Use as directed to test blood sugar once daily [facility] ICD CODE E11.9 FREESTYLE LITE TEST IN VITRO STRIP Use as directed to test blood sugar once daily [facility] ICD CODE E11.9 FREESTYLE FREEDOM LITE W/DEVICE KIT Use as directed to test blood sugar once daily [facility] ICD CODE E11.9 BD ULTRA-FINE MICRO PEN NEEDLE 32G X 6 MM use as instructed with kwik pen Opallinda Roa Danny PANTOPRAZOLE SOD 40MG TAB TAKE 1 TABLET BY MOUTH ONCE DAILY Tiara Christianson [facility] HUMALOG MIX 75/25 KWIKPEN (75-25) 100 UNIT/ML SUBCUTANEOUS SUSPENSION PEN-INJECT INJECT 50 UNITS SUB-Q 15 MINUTES BEFORE BREAKFAST AND 26 UNITS 15 MINUTES BEFORE DINNER DAILY Katy Ellsworth [facility], AZITHROMYCIN 250 MG ORAL TABLET 2 tablets by mouth on day one then one tablet by mouth each day for a total of 5 days Abisaijose j Magañajaki Delgado CHEST CONGESTION RELIEF 400 MG ORAL TABLET take every 4 hours as needed for cough and congestion. - Edward Delgado DOXYCYCLINE HYCLATE 100 MG ORAL CAPSULE 1 by mouth twice a day - Edward Delgado RELION INSULIN SYRINGE 31G X 15/64" 1 ML Use Three Times a Day to administer insulin Tiara Christianson [facility] Updated directions IPRATROPIUM/ ALBUTER EMI USE 1 AMPULE IN NEBULIZER EVERY 4 HOURS NEEDED FOR WHEEZING Tiara CisnerosAdherfaheem AZITHROMYCIN 250 MG ORAL TABLET 2 tablets [...] TORSEMIDE 20 MG ORAL TABLET take 2 tablet Twice a Day Edward Delgado CYCLOBENZAPRINE HCL 10 MG ORAL TABLET take 1 By Mouth Three Times a Day As Needed - Titi Sommermi ADVAIR DISKUS 250-50 MCG/DOSE INHALATION AEROSOL POWDER [...] history E&M Single. Not homeless. Born in [facility]. City: [facility]. State: [place]. Not employed. Retired. Highest education level: high school graduate. Gender of partner(s): male. Francesca Diana " social history reviewed E&M reviewed today Francesca Diana " assessment of health literacy ([facility] 2014 Standards, 3C10) Adequate Francesca Diana " passive cigarette smoke exposure Yes Francesca Diana " smoking status former smoker Francesca Diana " Exercise Program Referral T Francesca Orozco Lebron " Weight Management Counseling Provided T Francesca Orozco Lebron " Nutrition intervention Miguel A Diana time of call 07/18/2019 2:19 PM Eusebia Gagnon social history E&M Single. Not homeless. Born in [facility]. City: [facility]. State: [place]. Not employed. Retired. Highest education level: high school graduate. Gender of partner(s): male. Francesca Diana " social history reviewed E&M reviewed today Fracnesca Diana " assessment of health literacy ([facility] 2014 Standards, 3C10) Adequate Francesca Diana " passive cigarette smoke exposure Yes Francesca Diana " smoking status former smoker Francesca Diana " Exercise Program Referral T Francesca Orozco Lebron " Weight Management Counseling Provided T Francesca Orozco Lebron " Nutrition intervention T Francesca Bergmanirez Exercise Program Referral Miguel A Harman " Weight Management Counseling Provided Miguel A Harman " Nutrition intervention Miguel A Harman drug use, illicit Never Nupur Chong " alcohol use Currently Nupur Chong " social history E&M Single. Not homeless. Born in [facility]. City: [facility]. State: [place]. Not employed. Retired. Highest education level: high school graduate. Gender of partner(s): male. Nupur Chong " social history reviewed E&M reviewed today Nupur Chong " assessment of health literacy ([facility] 2014 Standards, 3C10) Adequate Nupur Chong " passive cigarette smoke exposure Yes Nupur Chong " smoking status former smoker Nupur Chong time of call 04/02/2019 8:30 AM Daphney Espitia drug use, illicit Never Stephanie Chalo " alcohol use Currently Stephanie Chalo " social history E&M Single. Not homeless. Born in [facility]. City: [facility]. State: [place] Not employed. Retired. Highest education level: high school graduate. Gender of partner(s): male. Stephanie Chalo " social history reviewed E&M reviewed today Stephanie Isabel " assessment of health literacy ([facility] 2014 Standards, 3C10) Adequate Stephanie Isabel " passive cigarette smoke exposure Yes Stephanie Isabel " smoking status former smoker Stephanie Isabel " Exercise Program Referral T Stephanie Isabel " Weight Management Counseling Provided T Stephanie Isabel " Nutrition intervention T Stephanie Isabel sunscreen use No Chukwuemeka Hinduism [facility] " Exercise Program Referral T Gautamwlinda Hinduism Nnabuife " Weight Management Counseling Provided T Chukwuemejose j Hinduism Nnabuife " Nutrition intervention T Chukwuemejose j Hinduism Nnabuife " drug use, illicit Never Nupur Chong " alcohol use Currently Nupur Chong " social history E&M Single. Not homeless. Born in [facility]. City: [facility]. State: [place] Not [place]. Retired. Highest education level: high school graduate. Gender of partner(s): male. Nupur Chong " social history reviewed E&M reviewed today Nupur Chong " assessment of health literacy ([facility] 2014 Standards, 3C10) Adequate Nupur Chong " [...] history E&M Single. Not homeless. Born in [facility]. City: [facility]. State: [place] Not employed. Retired. Highest education level: high school graduate. Gender of partner(s): male. Nupur Chong " social history reviewed E&M reviewed today Nupur Chong " assessment of health literacy ([facility] 2014 Standards, 3C10) Adequate Nupur Chong " passive cigarette smoke exposure No Nupur Chong " smoking status former smoker Nupur Chong time of call 11/21/2018 9:45 AM Joaquim Engel drug use, illicit Never Stephanie Isabel " alcohol use Currently Stephanie Isabel " social history E&M Single. Not homeless. Born in [facility]. City: [facility]. State: [place] Not employed. Retired. Highest education level: high school graduate. Gender of partner(s): male. Stephanie Isabel " social history reviewed E&M reviewed today Stephanie Isabel " assessment of health literacy ([facility] 2014 Standards, 3C10) Adequate Stephanie Isabel " [...] history E&M Single. Not homeless. Born in [facility]. City: [facility]. State: [place] Not [place]. Retired. Highest education level: high school graduate. Gender of partner(s): male. Hafsa Will " social history reviewed E&M reviewed today Hafsa Will " assessment of health literacy ([facility] 2014 Standards, 3C10) Adequate Hafsa Will " passive cigarette smoke exposure No Hafsa Will " smoking status former smoker Hafsa Will " Exercise Program Referral T Hafsa Will " Weight Management Counseling Provided T Hafsa Will " Nutrition intervention T Hafsa Will drug use, illicit Never Violette Pool " alcohol use Currently Violette Pool " social history E&M Single. Not homeless. Born in [facility]. City: [facility]. State: [place] Not [place]. Retired. Highest education level: high school graduate. Gender of partner(s): male. Violette Pool " social history reviewed E&M reviewed today Violette Pool " assessment of health literacy ([facility] 2014 Standards, 3C10) Adequate Violette Pool " passive cigarette smoke exposure No Violette Pool " smoking status former smoker Violette Pool alcohol use Currently Hafsa Will " drug use, illicit Never Hafsa Will " social history E&M Single. Not homeless. Born in [facility]. City: [facility]. State: [place]. Not employed. Retired. Highest education level: high school graduate. Gender of partner(s): male. Hafsa Will " social history reviewed E&M reviewed today Hafsa Will " assessment of health literacy ([facility] 2014 Standards, 3C10) Adequate Hafsa Will " passive cigarette smoke exposure No Hafsa Will " smoking status former smoker Hafsa Will " Exercise Program Referral T Hafsa Will " Weight Management Counseling Provided T Hafsa Will " Nutrition intervention T Hafsa Will drug use, illicit Never Priya Mars " alcohol use Currently Priya Mars " social history E&M Single. Not homeless. Born in [facility]. City: [facility]. [place]: [place] Not [place]. Retired. Highest education level: high school graduate. Gender of partner(s): male. Priya Mars " social history reviewed E&M reviewed today Priya Mars " assessment of health literacy ([facility] 2014 Standards, 3C10) Adequate Priya Jerad " is there any chance that you could be ? No Priya Jerad " passive cigarette smoke exposure Yes Priya Jack " smoking status former smoker Priya Mars " Exercise Program Referral T Priya Jerad " Weight Management Counseling Provided T Priya Jerad " Nutrition intervention T Priya Mars time of call 05/03/2018 12:59 PM Raysa Potts Exercise Program Referral T Edward Roa Nnabuife " Weight Management Counseling Provided T Gautamwlinda Roa Nnabuife " Nutrition intervention T Chukwuemejose j Hinduism Nnabuife " social history E&M Single. Not homeless. Born in [facility]. City: [facility]. [place]: [place] Not [place]. Retired. Highest education level: high school graduate. Gender of partner(s): male. Alayna Chapman " social history reviewed E&M reviewed today Alayna Chapman " assessment of health literacy ([facility] 2014 Standards, 3C10) Adequate Alayna Chapman " passive cigarette smoke exposure Yes Alayna Chapman " smoking status former smoker Alayna Chapman time of call 04/24/2018 11:41 AM Gayle Serrano drug use, illicit Never Stephanie Isabel " alcohol use Currently Stephanie Isabel " social history E&M Single. Not homeless. Born in [facility]. City: [facility]. [place]: [place] Not [place]. Retired. Highest education level: high school graduate. Gender of partner(s): male. Stephanie Isabel " social history reviewed E&M reviewed today Stephanie Isabel " assessment of health literacy ([facility] 2014 Standards, 3C10) Adequate Stephanie Isabel " [...] history E&M Single. Not homeless. Born in [facility]. City: [facility]. [place]: [place]. Retired. Highest education level: high school graduate. Gender of partner(s): male. Alayna Chapman " social history reviewed E&M reviewed today Alayna Chapman " assessment of health literacy ([facility] 2014 Standards, 3C10) Adequate Alayna Chapman " passive cigarette smoke exposure No Alayna Chapman " smoking status former smoker Alayna Chapman " Exercise Program Referral T Alayna Chapman " Weight Management Counseling Provided T Alyana Chapman " Nutrition intervention T Alayna Chapman Exercise Program Referral T Jamarkwuemejose j Hinduism Nnabuife " Weight Management Counseling Provided T Chukwuemeka Hinduism Nnabuife " Nutrition intervention T Chukwuemeka Hinduism Nnabuife " alcohol use Currently Alayna Chapman " social history E&M Single. Not homeless. Born in [facility]. City: [facility]. [place]: [place]. Retired. Highest education level: high school graduate. Gender of partner(s): male. Alayna Chapman " social history reviewed E&M reviewed today Alayna Chapman " assessment of health literacy ([facility] 2014 Standards, 3C10) Adequate Alayna Chapman " passive cigarette smoke exposure No Alayna Chapman " smoking status former smoker Alayna Chapman " assessment of health literacy ([facility] 2014 Standards, 3C10) Adequate Alayna Chapman " drug use, illicit Never Alayna Chapman " alcohol use Currently Alayna Chapman " social history E&M Single. Not homeless. Born in [facility]. City: [facility]. [place]: [place] Not [place]. Retired. Highest education level: high [...] Question 1, thoughts of harming yourself Yes Lo Sierra Suicide Addendum Question 1, thoughts of harming yourself Yes Toma Mcclellandez " family support Adult Children (23, 21, and 19). Toma Woods drug use, illicit Never Vivian Sin " alcohol use Currently Vivian Merrick " social history E&M Single. Not homeless. Born in [facility]. City: [facility]. [place]: [place]. Retired. Highest education level: high school graduate. Gender of partner(s): male. Vivian Sin " social history reviewed E&M reviewed today Vivian Sin " passive cigarette smoke exposure No Vivian Sin " smoking status former smoker Vivian Merrick " Exercise Program Referral T Vivian Sin " Weight Management Counseling Provided T Vivian Sin " Nutrition intervention Miguel A Sin time of call 12/05/2017 2:22 PM Sera Bob drug use, illicit Never Stephanie Isabel " alcohol use Currently Stephanie Isabel " social history E&M Single. Not homeless. Born in [facility]. City: [facility]. [place]: [place] Not [place]. Retired. Highest education level: high [...] M Palacio Exercise Program Referral T Edward Boyceuinasir " Weight Management Counseling Provided T Edward Delgado " Nutrition intervention T Edward Whiteabuife " social history E&M Single. Not homeless. Born in [facility]. City: [facility]. [place]: [place]. Retired. Highest education level: high school graduate. Gender of partner(s): male. Edward Delagdo " social history reviewed E&M reviewed today Edward Delgado " drug use, illicit Never Nupur Chong " alcohol use Currently Nupur Chong " passive cigarette smoke exposure Yes Nupur Chong " smoking status former smoker Nupur Chong time of call 09/02/2017 9:48 AM Donna Rousencio sunscreen use No Edward Boyceuinasir " social history E&M Single. Not homeless. [facility] [place] [facility] [facility] City: [facility]. State: [place]. Not employed. Retired. Highest education level: high school graduate. Gender of partner(s): male. Edward Delgado " social history reviewed E&M reviewed today Edward Delgado " passive cigarette smoke exposure Yes Taina Riccardo " smoking status former smoker Taina Gu time of call 08/11/2017 8:56 AM Donna Rousencio Exercise Program Referral T Titi Calderón " Weight Management Counseling Provided Miguel A Calderón " Nutrition intervention T [place] Calderón " passive cigarette smoke exposure No Taina Riccardo " smoking status former smoker Taina Riccardo time of call 07/21/2017 4:25 PM Alayna Gu social history E&M Single. Not homeless. Born in [facility]. City: [facility]. State: [place] Not employed. Retired. Highest education level: high [...] " passive cigarette smoke exposure No Francesca Parkerrez drug use, illicit Never Francesca Parkerrez " alcohol use Never Francesca Parkerrez " passive cigarette smoke exposure No Francesca Parkerrez " smoking status former smoker Francesca Gamino social history E&M Single. Not homeless. Born in [facility]. City: [facility]. State: [place] Not employed. Retired. Highest education level: high school graduate. Gender of partner(s): male. Deniz Brown " social history reviewed E&M reviewed today Deniz Brown " passive cigarette smoke exposure Yes Mona Lira " smoking status current every day smoker Mona Lira " smoking status current every day smoker Orsalinda Ward " passive cigarette smoke exposure Yes [...] history E&M Single. Not homeless. Born [place]. City: [facility]. State: [place] Not employed. Retired. Highest education level: high school graduate. Gender of partner(s): male. Honey Gutierrez " drug use, illicit Never Honey Gutierrez " alcohol use Never Honey Gutierrez " Occupation #1 Retired Honey Gutierrez " patient considered to be homeless No Honey Gutierrez " passive cigarette smoke exposure Yes Honey Gutierrez " cigarettes, number smoked per day 1 pack Honey Gutierrez " smoking status current every day smoker Honey Gutierrez FUNCTIONAL STATUS Date Observation Value Provider total score, Activities of Daily Living (ADL) [facility] Roa Nnabui Activities of Daily Living (ADLs, IADLs, etc.) Decrease in ADL [facility] MENTAL STATUS Date Observation Value Provider assessment of judgment and insight E&M intact [facility] " mental status examination: orientation E&M oriented to time, place, and person [facility] " assessment of mood and affect E&M no depression, anxiety, or agitation [facility] Nnabui " Generalized Anxiety Disorder Questionnaire - Question 2 0 Francesca Diana " Generalized Anxiety Disorder Questionnaire - Question 1 0 Francesca Diana assessment of judgment and insight E&M intact [facility] " mental status examination: orientation E&M oriented to time, place, and person [facility] " assessment of mood and affect E&M no depression, anxiety, or agitation [facility] " Generalized Anxiety Disorder Questionnaire - Question 2 0 Francesca Diana " Generalized Anxiety Disorder Questionnaire - Question 1 0 Francesca Diana assessment of judgment and insight E&M intact [facility] N[facility] " assessment of mood and affect E&M no depression, anxiety, or agitation [facility] " mental status examination: orientation E&M oriented to time, place, and person [place] [facility] Nn[place]uife " Generalized Anxiety Disorder Questionnaire - Question 2 0 Nupur Chong " Generalized Anxiety Disorder Questionnaire - Question 1 0 Nupur Chong assessment of judgment and insight E&M intact [facility] " mental status examination: orientation E&M oriented to time, place, and person [place] [facility] Nn[place] " assessment of mood and affect E&M no depression, anxiety, or agitation [place] [facility] [place] " Generalized Anxiety Disorder Questionnaire - Question 2 0 Stephanie Isabel " Generalized Anxiety Disorder Questionnaire - Question 1 0 Stephanie Isabel assessment of judgment and insight E&M intact Edward Hinduism Nn[place]uife " mental status examination: orientation E&M oriented to time, place, and person [place] [facility] N[place] " assessment of mood and affect E&M anxious, depressed mood [facility] Nn[place] " Generalized Anxiety Disorder Questionnaire - [...] of judgment and insight E&M intact Edward Hinduism N[place] " mental status examination: orientation E&M oriented to time, place, and person [place] [facility] [place] " assessment of mood and affect E&M anxious, depressed mood [facility] [place] " Generalized Anxiety Disorder Questionnaire - Question 2 0 Stephanie Isabel " Generalized Anxiety Disorder Questionnaire - Question 1 0 Stephanie Chalo assessment of judgment and insight E&M intact [facility] [place] " mental status examination: orientation E&M oriented to time, place, and person [place] [facility] [place] " assessment of mood and affect E&M anxious, depressed mood [place] [facility] Nn[place]ife mental status examination: orientation E&M alert and oriented Tiny Rodrigueza Mckeon " assessment of mood and affect E&M normal affect Tiny Vazquez Mckeon Generalized Anxiety Disorder Questionnaire - Question 2 0 Hafsa Suman " Generalized Anxiety Disorder Questionnaire - Question 1 0 Hafsa Will Generalized Anxiety Disorder Questionnaire - Question 2 0 Violette Welch " Generalized Anxiety Disorder Questionnaire - Question 1 0 Violette Pool assessment of judgment and insight E&M intact Edward Hinduism [facility] " mental status examination: orientation E&M oriented to time, place, and person [facility] abui " assessment of mood and affect E&M anxious, depressed mood [facility] abuife assessment of judgment and insight E&M intact [facility] " mental status examination: orientation E&M oriented to time, place, and person [facility] " assessment of mood and affect E&M anxious, depressed mood [facility] Generalized Anxiety Disorder Questionnaire - Question 2 0 rPiya Mars " Generalized Anxiety Disorder Questionnaire - Question 1 0 Priya Mars assessment of judgment and insight E&M intact [facility] " mental status examination: orientation E&M oriented to time, place, and person [facility] " assessment of mood and affect E&M anxious, depressed mood [facility] " Generalized Anxiety Disorder Questionnaire - Question 2 0 Alayna Chapman " Generalized Anxiety Disorder Questionnaire - Question 1 0 Alayna Chapman assessment of judgment and insight E&M intact [facility] " mental status examination: orientation E&M oriented to time, place, and person [facility] " assessment of mood and affect E&M anxious, depressed mood [facility] " Generalized Anxiety Disorder Questionnaire - Question 2 0 Stephanie Isabel " Generalized Anxiety Disorder Questionnaire - Question 1 0 Stephanie Isabel assessment of judgment and insight E&M intact [facility] " mental status examination: orientation E&M oriented to time, place, and person [facility] Hinduism [facility] " assessment of mood and affect E&M anxious, depressed mood [facility] " Generalized Anxiety Disorder Questionnaire - Question 2 0 Alayna Chapman " Generalized Anxiety Disorder Questionnaire - Question 1 0 Alayna Chapman assessment of judgment and insight E&M intact [facility] " mental status examination: orientation E&M oriented to time, place, and person [facility] " assessment of mood and affect E&M anxious, depressed mood [facility] " Generalized Anxiety Disorder Questionnaire - Question 2 0 Alayna Chapman " Generalized Anxiety Disorder Questionnaire - Question 1 0 Alayna Chapman assessment of judgment and insight E&M intact [facility] " mental status examination: orientation E&M oriented to time, place, and person [facility] " assessment of mood and affect E&M anxious, depressed mood [facility] " Generalized Anxiety Disorder [...] No Toma Woods " hallucinations none Toma Mcclellandez assessment of mood and affect E&M anxious, depressed mood [facility] " assessment of judgment and insight E&M intact [facility] " mental status examination: orientation E&M oriented to time, place, and person [facility] " If any problems checked, how difficult [...] assessment of judgment and insight E&M intact [facility] " mental status examination: orientation E&M oriented to time, place, and person [facility] " assessment of mood and affect E&M no depression, anxiety, or agitation [facility] " Generalized Anxiety Disorder Questionnaire - Question 2 0 Stephanie Isabel " Generalized Anxiety Disorder Questionnaire - Question 1 0 Stephanie Isabel Generalized Anxiety Disorder Questionnaire - Question 2 0 Nupur Chong " Generalized Anxiety Disorder Questionnaire - Question 1 0 Nupur Chong mental status examination: recall E&M intact for recent and remote events [facility] " assessment of judgment and insight E&M intact [facility] " mental status examination: orientation E&M oriented to time, place, and person [facility] " assessment of mood and affect E&M no depression, anxiety, or agitation [facility] " Generalized Anxiety Disorder Questionnaire - [...] E&M intact for recent and remote events [facility] " mental status examination: orientation E&M oriented to time, place, and person [facility] " assessment of judgment and insight E&M intact [facility] " assessment of mood and affect E&M no depression, anxiety, or agitation [facility] " Generalized Anxiety Disorder Questionnaire - [...] Covered libertarian [employer] Medicare HMO Medicare O [id number] ADVANCE DIRECTIVES No Information Available TREATMENT PLAN Date Name proBNP Comp. Metabolic Panel (14) CBC With Differential/Platelet Comp. Metabolic Panel (14) CBC With Differential/Platelet [...] - - Est Patient Exp Problem - 95220 Finger Stick Glucose Est Patient Exp Problem - 94607 Est Patient Exp Problem - 19634 Est Patient Detailed - 52119 New Patient Intermediate Opth - 87326 Finger Stick Glucose Ear Irrigation Est Patient Exp Problem - 56433 Est Patient Exp Problem - 81778 Retinal Screening Est Patient Well Exam (40 - 64 Yrs) - 85195 Est Patient Detailed - 99013 Est Patient Exp Problem - 77096 Est Patient Exp Problem - 55817 New Patient Comprehensive - 60024 Glucose Stick Est Patient Exp Problem - 87553 Glucose Stick Est Patient Exp Problem - 18415 Prescription Assistance (Non-HIV) Glucose Stick Est Patient Exp Problem - 36275 Endocrinology - Adult - [facility] - In House Est Patient Exp Problem - 52625 Est Patient Detailed - 05167 Est Patient Exp Problem - 86959 Est Patient Detailed - 98074 [facility] Assessment - Gold [place] Gilder Diagnostic evaluation (no medical) - 92959 Integrated Behavioral Health Assessment (IBH) Est Patient Exp Problem - 61986 Est Patient Detailed - 96259 Ofc Vst, Est Level V Est Patient Exp Problem - 18948 Est Patient Exp Problem - 90341 Ofc Vst, Est Level IV Est Patient Exp Problem - 53912 Ofc Vst, Est Level V Est Patient Exp Problem - 37862 Est Patient Detailed - 29747 Est Patient Detailed - 28048 ALBUTEROL INHAL ADMIN THRU DME 1MG Est Patient Detailed - 86040 Est Patient Exp Problem - 41239 Est Patient Exp Problem - 54539 Ear Irrigation Est Patient Exp Problem - 91522 Ofc Vst, Est Level III Est Patient Exp Problem - 32457 HISTORY OF PROCEDURES Procedure Date Procedure Name Provider Procedure Notes Status Finger Stick Glucose Gill Villafuerte completed New Patient Intermediate Opt - 40122 Satinder Harman completed Finger Stick Glucose Satinder Harman completed Ear Irrigation Satinder Harman completed Glucose Stick Gill Villafuerte completed Glucose Stick Satinder Harman completed Glucose Stick Gill Villafuerte completed HEMOGLOBIN A1C - In House Comfort Trevino completed [facility] Assessment - Gold Leaf Gilder Toma Woods completed Diagnostic evaluation (no medical) - 61314 Toma Woods completed ALBUTEROL INHAL ADMIN THRU DME 1MG Deniz Brown completed Ear Irrigation Thea Junior completed GOALS No Information Available [facility] No Information Available
--- OUTSIDE RECORDS SUMMARY | 2019-09-25 17:43 | XMS REPORT ---
Author Author Admin, [place] Organization Unknown Address Unknown Phone Unavailable PROBLEMS [...] active Edward Boyceuinasir Depression, major active Edward Fragafe COPD with exacerbation active Edward Boyceuife BMI 50.0-59.9 completed - Tiny Vazquez Mckeon Chronic bronchitis active Edward Boyceuinasir Breast abnormal findings active Edward Boyceuife Otitis media, acute completed - Titicleveland Sommermi [...] Location Encounter Diagnosis - Ambulatory Encounter [facility] - Ambulatory Encounter LSJ Lab Support Desktop [facility]Logic [facility] - Ambulatory Encounter Fax Status LinkLogic [facility] UNK - Ambulatory Encounter Fax Status LinkLogic [facility] UNK - Ambulatory Encounter Fax Status LinkLogic [facility] UNK - Ambulatory Encounter Chuodilia Congregational Nnabuife Edward Congregational Nnabuife [facility] UNK - Ambulatory Encounter Chukwlinda Congregational Nnabuife Chuodilia Congregational Nnabuife [facility] UNK - Ambulatory Encounter Chuodilia Congregational Nnabuife Edward Congregational Nnabuife [facility] UNK - Ambulatory Encounter Satinder Leon [facility]ational N[facility] Edward [facility]regational N[facility] Francesca Diana [facility] Hordeolum, internal - Ambulatory Encounter Comfort Marroquin MedAdherence, [facility] UNK - Ambulatory Encounter Comfort Langley MedAdherence [facility] UNK - Ambulatory Encounter Kimberly [place] UNK - Ambulatory Encounter Gill Marroquin MedAdherence, [facility] UNK - Ambulatory Encounter Edward Magañaian Nnabuife Edward Congregational Nnabuife [facility] UNK - Ambulatory Encounter Edward Congregational Nnabuife Edward Congregational Nnabuife [facility] UNK - Ambulatory Encounter Gill Whiteabjaimie Whiteabuinasir Diana [facility] UNK - Ambulatory Encounter Comfort Ellsworth MedAdherence, [facility] UNK - Ambulatory Encounter Comfort Marroquin MedAdherence, [facility] UNK - Ambulatory Encounter Edward Whiteabjaimie [facility]ir [facility] - [facility]ulatory Encounter Comfort Hernandez MedAdherence [facility] UNK - Ambulatory Encounter Fax Status LinkLogic [facility] UNK - Ambulatory Encounter [facility] - Ambulatory Encounter Fax Status [facility] UNK - Ambulatory Encounter Edward Whiteabuinasir [facility] UN[facility] - Ambulatory Encounter Satinder Roa Nnabuife Edward Roa Nnabuife [facility] Hypokalemia, mild - Ambulatory Encounter Edward Whiteabuife Edward Roa Nnabuife [facility] UNK - Ambulatory Encounter LSJ Lab Support Desktop LinkLogic Edward Whiteabuinasir Roa Nnabuife [facility] UNK - Ambulatory Encounter Fax Status [facility] - Ambulatory Encounter Fax Status LinkLogic [facility] UNK - Ambulatory Encounter Fax Status [facility] UNK - Ambulatory Encounter Fax Status [facility] UNK - Ambulatory Encounter Edward Roa Nnabuife Edward Congregational Nnabuife [facility] UNK - Ambulatory Encounter Edward Whiteabuinasir Leon Congregational Nnabuife [facility] UNK - Ambulatory Encounter Edward Whiteabuinasir Magañaian Nnabuife [facility] UNK - Ambulatory Encounter Satinder Roa Nnabuife Edward Roa Nnabuife Sheryl Odonnell [facility] UNK - Ambulatory Encounter Comfort Pedersen MedAdherence [facility] UNK - Ambulatory Encounter Comfort Christianson MedAdherence [facility] UNK - Ambulatory Encounter Tiara Christianson MedAdherence [facility] UNK - Ambulatory Encounter Edward Whiteabuife Edward Roa Nnabuife [facility] UNK - Ambulatory Encounter Osiris Gordon [facility] UNK - Ambulatory Encounter Chukwuemeka Congregational Nnabuife Chukwlinda Congregational Nnabuife LinkLogic [facility] UNK - Ambulatory Encounter Comfort Christianson [facility] UNK - Ambulatory Encounter Chukkavin Congregational Nnabuife Chukwlinda Congregational Nnabuife [facility] UNK - Ambulatory Encounter Chukwlinda Congregational Nnabuife Chukwlinda Congregational Nnabuife [facility] UNK - Ambulatory Encounter Chukkavin Congregational Nnabuife Chukwlinda Congregational Nnabuife [facility] UNK - Ambulatory Encounter Satinder Leon Congregational Nnabuife Chukwlinda Congregational Nnabuife [facility] Chronic pain syndrome - Ambulatory Encounter Chuodilia Congregational Nnabuife Chukwuekathya Congregational Nnabuife [facility] UNK - Ambulatory Encounter LSJ Lab Support Desktop LinkLogic Chukwlinda Congregational Nnabuife Chukwuekathya Congregational Nnabuife [facility] UNK - Ambulatory Encounter Chuvidhyawlinda Congregational Nnabuife Chukwuekathya Congregational Nnabuife [facility] UNK - Ambulatory Encounter Chuodilia Congregational Nnabuife Chukwlinda Congregational Nnabuife [facility] UNK - Ambulatory Encounter Comfort Leon Congregational Nnabuife Chukwlinda Congregational Nnabuife [facility] Well woman examCerumen impaction, bilateral - Ambulatory Encounter Satinder Christianson MedAdherence [facility] UNK - Ambulatory Encounter Satinderchristopher Christianson MedAdherence Eusebia Kalin [place] UNK - Ambulatory Encounter Satinder Christianson MedAdherence Chukwuemejose j Magañaian Nnabuife Jamarkwuemejose j Congregational Nnabuife Eusebia Gagnon [facility] UNK - Ambulatory Encounter Satinder Christianson MedAdherence [facility] UNK - Ambulatory Encounter Tiara Christianson MedAdherence Alayna Gu [facility] UNK - Ambulatory Encounter Edward Roa Nnabuife Jamarkwuekathya Congregational Nnabuife LinkLogic [facility] UNK - Ambulatory Encounter Edward Congregational Nnabuife Chukwuemeka Congregational Nnabuife LinkLogic [facility] UNK - Ambulatory Encounter Satinder Christianson MedAdherence [facility] UNK - Ambulatory Encounter Satinder Harman LinkLogic [facility] UNK - Ambulatory Encounter Fax Status LinkLogic [facility] UNK - Ambulatory Encounter Fax Status LinkLogic [facility] UNK - Ambulatory Encounter Fax Status LinkLogic [facility] UNK - Ambulatory Encounter Fax Status LinkLogic [facility] UNK - Ambulatory Encounter Fax Status LinkLogic [facility] UNK - Ambulatory Encounter Fax Status LinkLogic [facility] UNK - Ambulatory Encounter Satinder Klein Nupur Olmedodoris Estrada [facility] UNK - Ambulatory Encounter Tiara Christianson MedAdherence Satinder Engel [facility] Contact Center UNK - Ambulatory Encounter Kimberly Roa Nnabuife Edward Roa Nnabuife [facility] Center UNK - Ambulatory Encounter Satinder Christianson MedAdherence [facility] UNK - Ambulatory Encounter Satinder Harman [facility] - Ambulatory Encounter Fax Status [facility] UNK - Ambulatory Encounter Lo Sierra Tiara Christianson MedAdherence [facility] UNK - Ambulatory Encounter Edward Magañaian Nnabuife Edward Congregational Nnabuife LinkLogic [facility] UNK - Ambulatory Encounter Edward Congregational Cindyabuife Edward Congregational Nnabuife LinkLogic [facility] UNK - Ambulatory Encounter Edward Congregational Nnabuife Edward Congregational Nnabuife [facility] UNK - Ambulatory Encounter Edward Congregational Nnabuife Edward Congregational Nnabuife [facility] UNK - Ambulatory Encounter Edward Congregational Nnabuife Edward Congregational Nnabuife [facility] UNK - Ambulatory Encounter Lo Sierra Stephanie Roldankwuemeka Crispin Delgado [facility] BMI 60.0-69.9, adultBMI 50.0-59.9 - Ambulatory Encounter Alayna Dixon [facility] UNK - Ambulatory Encounter Kayla Ruel [facility] UNK - Ambulatory Encounter Kayla Ruel [facility] UNK - Ambulatory Encounter Edward Lipscomb [facility] Practice UNK - Ambulatory Encounter Satinder Christianson MedAdherence Kayla Reich [facility] UNK - Ambulatory Encounter Fax Status [facility] - Ambulatory Encounter Fax Status [facility] UNK - Ambulatory Encounter Fax Status [facility] UNK - Ambulatory Encounter Fax Status [facility] UNK - Ambulatory Encounter Bhavya Pedersen MedAdherence Clementine Velasquez [facility] UNK - Ambulatory Encounter Edward Delgado [facility] UNK - Ambulatory Encounter Edward Delgado [facility] UNK - Ambulatory Encounter Edward Congregational Nnabuife Edward Congregational Nnabuife [facility] UNK - Ambulatory Encounter Comfort Leon Congregational Nnabuife Edward Congregational Nnabuife Hafsa Will [facility] Dyspnea at restCHF exacerbation - Ambulatory Encounter Tiny Vazquez Mckeon Tiny [facility]quez [facility]keon [facility]ulatory Encounter Tiny Vazquez Mckeon Tiny Vazquez Mckeon [facility] BMI 50.0-59.9BMI 60.0-69.9, adult - Ambulatory Encounter Kayla Lipscomb [facility] UNK - Ambulatory Encounter Satinder Christianson [facility] Francesca Potts [facility] Contact Center UNK - Ambulatory Encounter Violette Welch Kayla Lipscomb [facility] UNK - Ambulatory Encounter Edward Magañaian Nnabuife Edward Congregational Nnabuife [facility] UNK - Ambulatory Encounter Edward Congregational Nnabuife Edward Congregational Nnabuife [facility] UNK - Ambulatory Encounter Edward Congregational Nnabuife Edward Congregational Nnabuife [facility] UNK - Ambulatory Encounter Edward Congregational Nnabuife Edward Congregational Nnabuife [facility] UNK - Ambulatory Encounter Edward Congregational Nnabuife Edward Congregational Nnabuife [facility] UNK - Ambulatory Encounter Gill Whiteabjaimie Whiteabuife Violette Will [facility] Acute upper respiratory infection - Ambulatory Encounter Bhavya Pedersen [facility]K - Ambulatory Encounter Satinder Harman [facility] UNK - Ambulatory Encounter Bhavya Pedersen [facility] Contact Center UNK - Ambulatory Encounter Comfort [facility] - [facility] - Ambulatory Encounter Fax Status [facility] UNK - Ambulatory Encounter Fax Status [facility] UNK - Ambulatory Encounter Fax Status [facility] UNK - Ambulatory Encounter Alayna Chapman [facility] UNK - Ambulatory Encounter Edward Whiteabuife Edward Magañaian Cindyabuife [facility] UNK - Ambulatory Encounter Edward Magañaian Cindyabuife Edward Congregational Nnabuife [facility] UNK - Ambulatory Encounter Edward Whiteabuinasir Leon Congregational Cindyabuife [facility] UNK - Ambulatory Encounter Satinder Whiteabmelitafe Edward Whiteabuife Priya Mars [facility] UNK - Ambulatory Encounter Parris Oleary [facility] UNK - Ambulatory Encounter Chukwlinda Congregational Nnabuife Jamarkwuekathya Congregational Nnabuife LinkLogic [facility] UNK - Ambulatory Encounter Bhavya Pedersen MedAdherence Kirsten Ibarra Chukwuemeka Congregational Nnabuife Chukwuekathya Congregational Nnabuife Raysa Potts [facility] Contact Center UNK - Ambulatory Encounter Chukwlinda Congregational Nnabuife Jamarkwuemejose j Congregational Nnabuife [facility] UNK - Ambulatory Encounter Chukwlinda Congregational Nnabuife Jamarkwuekathya Congregational Nnabuife [facility] UNK - Ambulatory Encounter Chukwlinda Congregational Nnabuife Chukwuekathya Congregational Nnabuife [facility] UNK - Ambulatory Encounter Chukwuekathya Congregational Nnabuife Chukwuemejose j Congregational Nnabuife [facility] UNK - Ambulatory Encounter Gill Roldankwuemejose j Congregational Nnabuife Chukwuemejose j Congregational Nnabuife [facility] UNK - Ambulatory Encounter Bhavya Pedersen MedAdherence [facility] UNK - Ambulatory Encounter Kayla Serrano [facility] Contact Center UNK - Ambulatory Encounter Chukkavin Congregational Nnabuife Gautamwuekathya Congregational Nnabuife [facility] UNK - Ambulatory Encounter Tab Chang [facility] UNK - Ambulatory Encounter Chukwlinda Congregational Nnabuife Jamarkwuekathya Congregational Nnabuife [facility] UNK - Ambulatory Encounter Chukwlinda Congregational Nnabuife Chukwlinda Congregational Nnabuife [facility] UNK - Ambulatory Encounter LSJ Lab Support Desktop LinkLogic Tab Leon Congregational Nnabuife Jamarkwlinda Congregational Nnabuife [facility] UNK - Ambulatory Encounter Chukwlinda Congregational Nnabuife Jamarkwlinda Congregational Nnabuife [facility] UNK - Ambulatory Encounter Chukwlinda Congregational Nnabuife Chukwuemejose j Congregational Nnabuife [facility] UNK - Ambulatory Encounter Chukwlinda Congregational Nnabuife Jamarkwuemejose j Congregational Nnabuife [facility] UNK - Ambulatory Encounter Comfort Christianson MedAdherence Edward Congregational Nnabuife Gautamwuemejose j Congregational Nnabuife Marielena Reich [facility] Screening for diabetes mellitusScreening for lipid disorder - Ambulatory Encounter Chukkavin Magañaian Nnabuife Jamarkwuekathya Magañaian Nnabuife [facility] GERD - Ambulatory Encounter Chukwlinda Magañaian Nnabuife Gautamwlinda Roa Nntravis Isabel [facility] UNK - Ambulatory Encounter Chukwuemeka Congregational Nnabuife Chuvidhyawlinda Congregational Nnabuife [facility] UNK - Ambulatory Encounter Tab Florezwuekathya Congregational Nnabuife Chukwlinda Congregational Nnabuife Vivian Pope [facility] UNK - Ambulatory Encounter Chukwuemejose j Congregational Nnabuife Chukwuemejose j Congregational Nnabuife [facility] UNK - Ambulatory Encounter Chukwlinda Congregational Nnabuife Chukwlinda Congregational Nnabuife [facility] UNK - Ambulatory Encounter Chukwlinda Congregational Nnabuife Chuvidhyawlinda Congregational Nnabuife [facility] UNK - Ambulatory Encounter Comfort Florezwuekathya Congregational Nnabuife Chukwfabiánmejose j Congregational Nnabuife [facility] Diabetes mellitus type II - Ambulatory Encounter Chukwlinda Congregational Nnabuife Chukwuemejose j Congregational Nnabuife LinkLogic [facility] UNK - Ambulatory Encounter Chukwlinda Congregational Nnabuife Chukwuemejose j Congregational Nnabuife LinkLogic [facility] UNK - Ambulatory Encounter Loly Short [facility] UNK - Ambulatory Encounter Chukwlinda Congregational Nnabuife Jamarkwuemejose j Congregational Nnabuife LinkLogic [facility] UNK - Ambulatory Encounter Chukkavin Congregational Nnabuife Chuvidhyawlinda Congregational Nnabuife [facility] UNK - Ambulatory Encounter Chuodilia Congregational Nnabuife Edward Congregational Nnabuife [facility] UNK - Ambulatory Encounter Chuodilia Congregational Nnabuife Edward Congregational Nnabuife [facility] UNK - Ambulatory Encounter Chuodilia Congregational Nnabuife Edward Congregational Nnabuife [facility] UNK - Ambulatory Encounter Satinder Leon Congregational Nnabuife Edward Congregational Nnabuife [facility] UNK - Ambulatory Encounter Tiara Christianson MedAdherence [facility] UNK - Ambulatory Encounter Bhavya Pedersen MedAdherence [facility] UNK - Ambulatory Encounter Bhavya Pedersen MedAdherence LinkLogic [facility] UNK - Ambulatory Encounter Titi Kaitlynn Titi Kaitlynn LinkLogic [facility] UNK - Ambulatory Encounter Edward Congregational Nnabuife Edward Congregational Nnabuife LinkLogic [facility] UNK - Ambulatory Encounter Edward Congregational Nnabuife Edward Congregational Nnabuife LinkLogic [facility] UNK - Ambulatory Encounter Chuodilia Congregational Nnabuife Edward Congregational Nnabuife [facility] UNK - Ambulatory Encounter Chuodilia Congregational Nnabuife Edward Congregational Nnabuife [facility] UNK - Ambulatory Encounter Bryankathya Congregational Nnabuife Abisaijose j Congregational Nnabuife [facility] UNK - Ambulatory Encounter Abisaijose j Congregational Nnabuife Abisaijose j Congregational Nnabuife [facility] UNK - Ambulatory Encounter Comfort Baronejose j Congregational Nnabuife Abisaijose j Congregational Nnabuife [facility] Practice Abdominal distensionAbdominal pain, chronicAscitesUrinary retention - Ambulatory Encounter Tiara Christianson MedAdherence [facility] UNK - Ambulatory Encounter Tiara Christianson MedAdherence [facility] UNK - Ambulatory Encounter Tiara Christianson [facility]herence [facility] UNK - Ambulatory Encounter Comfrot Trevino [facility] UNK - Ambulatory Encounter Mae Rashaun [facility] UNK - Ambulatory Encounter Fax Status [facility] UNK - Ambulatory Encounter Fax Status LinkLogic [facility] UNK - Ambulatory Encounter Fax Status [facility] UNK - Ambulatory Encounter Fax Status [facility] UNK - Ambulatory Encounter Fax Status [facility] UNK - Ambulatory Encounter Fax Status [facility] UNK - Ambulatory Encounter Abisaijose j Congregational Nnabuinasir Leon Congregational Nnabuife [facility] UNK - Ambulatory Encounter Edward Roa Nnabuife Edward Congregational Nnabuife [facility] UNK - Ambulatory Encounter Edward Congregational Nnabuife Edward Congregational Nnabuife [facility] UNK - Ambulatory Encounter Toma Woods [facility] Mood Disorder, NOS - Ambulatory Encounter Lo Roa Nnabuife Edward Whiteabuife Vivian Matthews [facility] Depression, majorSuicidal ideation - Ambulatory Encounter Comfort [facility] Encounter Tiara Winslow [facility] UNK - Ambulatory Encounter Bhavya Pedersen [facility] UNK - Ambulatory Encounter Bhavya Pedersen [facility] UNK - Ambulatory Encounter Edward Magañaian Nnabuife Edward Congregational Nnabuife [facility] UNK - Ambulatory Encounter Edward Magañaian Cindyabuife Edward Congregational Nnabuife [facility] UNK - Ambulatory Encounter Edward Whiteabuife Edward Congregational Nnabuife [facility] UNK - Ambulatory Encounter Edward Congregational Nnabuife Gautamwlinda Congregational Nnabuife [facility] UNK - Ambulatory Encounter Chuodilia Congregational Nnabuife Edward Congregational Nnabuife [facility] UNK - Ambulatory Encounter Gill Florezwlinda Congregational Nnabuife Chuodilia Congregational Nnabuife [facility] UNK - Ambulatory Encounter Loly Winslow [facility] UNK - Ambulatory Encounter Tiara Christianson [facility] - Ambulatory Encounter Edward Roa Nnabuife Ewdard Congregational Nnabuife [facility] UNK - Ambulatory Encounter Bhavya Pedersen MedAdherence [facility] UNK - Ambulatory Encounter Bhavya Pedersen MedAdherence LinkLogic [facility] UNK - Ambulatory Encounter Edward Congregational Nnabuife Gautamwlinda Congregational Nnabuife Tab Matthews [facility] UNK - Ambulatory Encounter Comfort TorresLog [facility] UNK - Ambulatory Encounter Edward Congregational Nnabuife Edward Congregational Nnabuife [facility] UNK - Ambulatory Encounter Chuodilia Congregational Nnabuife Edward Congregational Nnabuife [facility] UNK - Ambulatory Encounter Chuodilia Congregational Nnabuife Chukwuemeka Congregational Nnabuife [facility] UNK - Ambulatory Encounter Edward Whiteabuife [facility] UNK - Ambulatory Encounter Comfort Whiteabjaimie Whiteabmelitafe [facility] COPD with exacerbation - Ambulatory Encounter Tiara Christianson MedAdherence [facility] UNK - Ambulatory Encounter Tiara Christianson MedAdherfaheem [facility] Services UNK - Ambulatory Encounter Tiara Christianson MedAdherence [facility] UNK - Ambulatory Encounter Edward Whiteabmelitafe [facility] UNK - Ambulatory Encounter Edward Whiteabuife [facility] UNK - Ambulatory Encounter Gill Whiteabmelitafe [facility] UNK - Ambulatory Encounter Loly Winslow [facility] UNK - Ambulatory Encounter Edward Whiteabuife [facility] UNK - Ambulatory Encounter Loly Winslow Donna Sabiha [facility] UNK - Ambulatory Encounter Fax Status [facility] Services UNK - Ambulatory Encounter Fax Status [facility] UNK - Ambulatory Encounter Fax Status LinkLogic [facility] Fax Status [facility] - [facility] En[facility] Fax Status [facility]ulatory Encounter Fax Status [facility] - Ambulatory Encounter Titi Kaitlynn Titi Kaitlynn [facility] UNK - Ambulatory Encounter Titi Kaitlynn Titi Kaitlynn [facility] UNK - Ambulatory Encounter Titi Kaitlynn Titi Kaitlynn [facility] UNK - Ambulatory Encounter Lo Gu Titi Kaitlynn Titi Kaitlynn [facility] MUSCLE SPASMEAR PAIN, RIGHTCandidal vaginitisOtitis media, acute - Ambulatory Encounter Satinder Gu [facility] UNK - Ambulatory Encounter Fax Status [facility] - Ambulatory Encounter Fax Status [facility] - Ambulatory Encounter Fax Status [facility] - Ambulatory Encounter Bhavya Palacio [facility] UNK - Ambulatory Encounter Edward Magañaian Cindyabjaimie Leon [facility] UNK - Ambulatory Encounter Satinder Josephuekathya [facility] Jamarkwuemeka [facility] Ayanna Matthews [facility] Breast abnormal findingsChronic bronchitisBMI 50.0-59.9 - Ambulatory Encounter Comfort Trevino [facility] - [facility] Encounter Tiara Christianson MedAdherence [facility] UNK - Ambulatory Encounter Tiara Christianson [facility] LinkLogic [facility] UNK - Ambulatory Encounter Bhavya Pedersen [facility] UNK - Ambulatory Encounter Bhavya Pedersen [facility] UNK - Ambulatory Encounter Nuvance Healthmita Sierra [facility] UNK - Ambulatory Encounter Lo Sierra LinkLogic [facility] UNK - Ambulatory Encounter Bhavya Pedersen Med[facility] Stephanie Hernandez [facility] Contact Center UNK - Ambulatory Encounter Madmitkaylin Sierra [facility] UNK - Ambulatory Encounter Madmita Sierra [facility] UNK - Ambulatory Encounter Madmita Sierra LinkLog[facility] UNK - Ambulatory Encounter Nupur Chong [facility] UNK - Ambulatory Encounter Nupur Chong [facility] UNK - Ambulatory Encounter Edwin Umana [facility] UNK - Ambulatory Encounter Edwin Umana [facility] UNK - Ambulatory Encounter Edwin Umana [facility] UNK - Ambulatory Encounter Comfort Umana Edwin Lyndsay Ma Gamino [facility] MORBID OBESITYOtitis media, acute - Ambulatory Encounter nidhikaylin Beard [facility] UNK - Ambulatory Encounter Lo Esquivel [facility] UNK - Ambulatory [facility] Candidal vaginitis - Ambulatory Encounter Lo Esquivel [facility] UNK - Ambulatory Encounter Breana Rosario [facility] UNK - Ambulatory Encounter Breana Rosario [facility] UNK - Ambulatory Encounter Maryjessica Soto [facility] UNK - Ambulatory Encounter nidhikaylin Cihrag [facility] UNK - Ambulatory Encounter Vivianabrandt Hector [facility] UNK - Ambulatory Encounter Janet [facility] UNK - Ambulatory Encounter [facility]io [facility] - [facility] Encounter Gita Dewey [facility] UNK - Ambulatory Encounter Comfort Trevino [facility] UNK - [facility] Comfort Trevino [facility] UNK - Ambulatory Encounter Carmelina Gu [place] [employer] [employer] UNK - Ambulatory Encounter Jan Johnson [facility] Supervisor Type [employer] UNK - Ambulatory Encounter Fax Status LinkLogic [facility] UNK - Ambulatory Encounter Fax Status LinkLogic [facility] UNK - Ambulatory Encounter Fax Status LinkLogic [facility] UNK - Ambulatory Encounter Deniz Lira [facility] UNK - Ambulatory Encounter [facility]hav[facility] - [facility]ulatory Encounter Comfort Trevino LinkLogic [facility] UNK - Ambulatory Encounter Comfort Trevino [facility] UNK - Ambulatory Encounter Comfort Trevino LinkLogic [facility] UNK - Ambulatory Encounter Fax Status LinkLogic [facility] UNK - Ambulatory Encounter Fax Status LinkLogic [facility] UNK - Ambulatory Encounter Comfort Trevino LinkLogic [facility] UNK - Ambulatory Encounter Fax Status LinkLogic [facility] UNK - Ambulatory Encounter Fax Status LinkLogic [facility] UNK - Ambulatory Encounter Comfort Trevino LinkLogic [facility] UNK - Ambulatory Encounter Comfort Trevino LinkLogic [facility] UNK - Ambulatory Encounter Comfort Trevino LinkLogic [facility] UNK - Ambulatory Encounter Comfort Trevino LinkLogic [facility] UNK - Ambulatory Encounter Kimberly Pedersen [facility]herence [facility] Tre[facility] Jenny Gaston [facility] UNK - Ambulatory Encounter Kimberly Trevino [facility] UNK - Ambulatory Encounter Tab [facility] UNK - Ambulatory Encounter Fax Status LinkLogic [facility] UNK - Ambulatory Encounter Fax Status LinkLogic [facility] UNK - Ambulatory Encounter Fax Status LinkLogic [facility] UNK - Ambulatory Encounter Kimberly Trevino [facility] UNK - Ambulatory Encounter Comfort Trevino [facility] UNK - Ambulatory Encounter Comfort Trevino LinkLogic Kimberly Jorgensen [facility] UNK - Ambulatory Encounter Fax Status LinkLog[facility] UNK - Ambulatory Encounter [facility] - Ambulatory Encounter Fax Status LinkLogic [facility] UNK - Ambulatory Encounter Fax Status LinkLogic [facility] UNK - Ambulatory Encounter Comfort Trevino LinkLogic [facility] UNK - Ambulatory Encounter Kimberly Trevino [facility] UNK - Ambulatory Encounter Comfort TorresLogic Kimberly Jorgensen [facility] UNK - Ambulatory Encounter [facility] - Ambulatory Encounter Gosia Trevino [facility] UNK - Ambulatory Encounter Comfort Mayes [facility] UNK - Ambulatory Encounter Comfort Tellez Ward [facility] CHRONIC OBSTRUCTIVE PULMONARY DISEASE, ACUTE EXACERBATIONCHFSLEEP APNEA - Ambulatory Encounter Gill [facility] - Ambulatory Encounter Fax Status [facility] - Ambulatory Encounter Fax Status LinkLogic [facility] UNK - Ambulatory Encounter Fax Status [facility]K - Ambulatory Encounter Fax Status [facility] UNK - Ambulatory Encounter Fax Status [facility] UNK - Ambulatory Encounter Fax Status LinkLogic [facility] UNK - Ambulatory Encounter Fax Status [facility] UNK - Ambulatory Encounter Jenny Gaston [facility] UNK - Ambulatory Encounter Thea Patitoserenaa Theaadeel Camachokaylin Rosalinda Ward [facility] LOW BACK PAIN - Ambulatory Encounter Sabra Stephen [facility] UNK - Ambulatory Encounter Sabra Stephen [facility] UNK - Ambulatory Encounter Ernesto Gaffney [facility] DEPENDENT EDEMA, LEGS - Ambulatory Encounter Bhavya Valdez [facility] UNK - Ambulatory Encounter Bhavya CisnerosAdherence [facility] UNK - Ambulatory Encounter Jonelle [facility] UNK - Ambulatory Encounter Jonelle [facility] UNK - Ambulatory Encounter Jonelle [facility] UNK - Ambulatory Encounter Jonelle [facility] UNK - Ambulatory Encounter Jonelle [facility] UNK - Ambulatory Encounter Malena Isabel [facility] UNK - Ambulatory Encounter Ernesto Matthews [facility] EAR PAIN, RIGHTBLURRED VISIONHEARING DEFICIT - Ambulatory Encounter Episcopal Preload LinkLogic [facility] UNK - Ambulatory Encounter Episcopal Preload LinkLogic [facility] UNK - Ambulatory Encounter Episcopal Preload LinkLogic [facility] UNK - Ambulatory Encounter Episcopal Preload LinkLogic [facility] UNK - Ambulatory Encounter Episcopal Preload LinkLogic [facility] UNK - Ambulatory Encounter Episcopal Preload LinkLogic [facility] UNK - Ambulatory Encounter Episcopal Preload LinkLogic [facility] UNK - Ambulatory Encounter Episcopal Preload LinkLogic [facility] UNK - Ambulatory Encounter Episcopal Preload LinkLogic [facility] UNK - Ambulatory Encounter Episcopal Preload LinkLogic [facility] UNK - Ambulatory Encounter Episcopal Preload LinkLogic [place] [facility] UNK - Ambulatory Encounter Episcopal Preload LinkLogic [place] [facility] UNK - Ambulatory Encounter Episcopal Preload LinkLogic [place] [facility] UNK - Ambulatory Encounter Episcopal Preload LinkLogic [place] [facility] UNK - Ambulatory Encounter Episcopal Preload LinkLogic [place] [facility] UNK - Ambulatory Encounter Episcopal Preload LinkLogic [place] [facility] UNK - Ambulatory Encounter Episcopal Preload LinkLogic [place] [facility] UNK - Ambulatory Encounter Episcopal Preload LinkLogic [place] [facility] UNK - Ambulatory Encounter Episcopal Preload LinkLogic [place] [facility] UNK - Ambulatory Encounter Episcopal Preload LinkLogic [place] [facility] UNK - Ambulatory Encounter Episcopal Preload LinkLogic [place] [facility] UNK - Ambulatory Encounter Episcopal Preload LinkLogic [place] [facility] UNK - Ambulatory Encounter Episcopal Preload LinkLogic [place] [facility] UNK - Ambulatory Encounter Episcopal Preload LinkLogic [place] [facility] UNK - Ambulatory Encounter Episcopal Preload LinkLogic [place] [facility] UNK - Ambulatory Encounter Episcopal Preload LinkLogic [place] [facility] UNK - Ambulatory Encounter Episcopal Preload LinkLogic [place] [facility] UNK - Ambulatory Encounter Episcopal Preload LinkLogic [place] [facility] UNK - Ambulatory Encounter Episcopal Preload LinkLogic [place] [facility] UNK - Ambulatory Encounter Episcopal Preload LinkLogic [place] [facility] UNK - Ambulatory Encounter Episcopal Preload LinkLogic [place] [facility] UNK - Ambulatory Encounter Episcopal Preload LinkLogic [place] [facility] UNK - Ambulatory Encounter Episcopal Preload LinkLogic [place] [facility] UNK - Ambulatory Encounter Episcopal Preload LinkLogic [place] [facility] UNK - Ambulatory Encounter Episcopal Preload LinkLogic [place] [facility] UNK - Ambulatory Encounter Episcopal Preload LinkLogic [place] [facility] UNK - Ambulatory Encounter Episcopal Preload LinkLogic [place] [facility] UNK - Ambulatory Encounter Episcopal Preload LinkLogic [place] [facility] UNK - Ambulatory Encounter Episcopal Preload LinkLogic [place] [facility] UNK - Ambulatory Encounter Episcopal Preload LinkLogic [place] [facility] UNK - Ambulatory Encounter Episcopal Preload LinkLogic [place] [facility] UNK - Ambulatory Encounter Episcopal Preload LinkLogic [place] [facility] UNK - Ambulatory Encounter Episcopal Preload LinkLogic [place] [facility] UNK - Ambulatory Encounter Episcopal Preload LinkLogic [place] [facility] UNK - Ambulatory Encounter Episcopal Preload LinkLogic [place] [facility] UNK - Ambulatory Encounter Episcopal Preload LinkLogic [place] [facility] UNK - Ambulatory Encounter Episcopal Preload LinkLogic [facility] UNK - Ambulatory Encounter Episcopal Preload LinkLogic [place] [facility] UNK - Ambulatory Encounter Episcopal Preload LinkLogic [place] [facility] UNK - Ambulatory Encounter Episcopal Preload LinkLogic [place] [facility] UNK - Ambulatory Encounter Episcopal Preload LinkLogic [place] [facility] UNK - Ambulatory Encounter Episcopal Preload LinkLogic [place] [facility] UNK - Ambulatory Encounter Episcopal Preload LinkLogic [place] [facility] UNK - Ambulatory Encounter Episcopal Preload LinkLogic [place] [facility] UNK - Ambulatory Encounter Episcopal Preload LinkLogic [place] [facility] UNK - Ambulatory Encounter Episcopal Preload LinkLogic [place] [facility] UNK - Ambulatory Encounter Episcopal Preload LinkLogic [place] [facility] UNK - Ambulatory Encounter Episcopal Preload LinkLogic [place] [facility] UNK - Ambulatory Encounter Episcopal Preload LinkLogic [place] [facility] UNK - Ambulatory Encounter Episcopal Preload LinkLogic [place] [facility] UNK - Ambulatory Encounter Episcopal Preload LinkLogic [place] [facility] UNK - Ambulatory Encounter Episcopal Preload LinkLogic [place] [facility] UNK - Ambulatory Encounter Episcopal Preload LinkLogic [place] [facility] UNK - Ambulatory Encounter Episcopal Preload LinkLogic [facility] UNK - Ambulatory Encounter Episcopal Preload LinkLogic [facility] UNK - Ambulatory Encounter Episcopal Preload LinkLogic [facility] UNK - Ambulatory Encounter Episcopal Preload LinkLogic [facility] UNK - Ambulatory Encounter Episcopal Preload LinkLogic [facility] UNK - Ambulatory Encounter Sharpe Gulshan Sharpe Vo LinkLogic [place] [facility] UNK - Ambulatory Encounter Episcopal Preload LinkLogic [place] [facility] UNK - Ambulatory Encounter Episcopal Preload LinkLogic [place] [facility] UNK - Ambulatory Encounter Episcopal Preload LinkLogic [place] [facility] UNK - Ambulatory Encounter Episcopal Preload LinkLogic [place] [facility] UNK - Ambulatory Encounter Episcopal Preload LinkLogic [place] [facility] UNK - Ambulatory Encounter Episcopal Preload LinkLogic [place] [facility] UNK - Ambulatory Encounter Episcopal Preload LinkLogic [place] [facility] UNK - Ambulatory Encounter Episcopal Preload LinkLogic [place] [facility] UNK - Ambulatory Encounter Episcopal Preload LinkLogic [place] [facility] UNK - Ambulatory Encounter Episcopal Preload LinkLogic [place] [facility] UNK - Ambulatory Encounter Episcopal Preload LinkLogic [place] [facility] UNK - Ambulatory Encounter Episcopal Preload LinkLogic [place] [facility] UNK - Ambulatory Encounter Episcopal Preload LinkLogic [place] [facility] UNK - Ambulatory Encounter Episcopal Preload LinkLogic [place] [facility] UNK - Ambulatory Encounter Episcopal Preload LinkLogic [facility] UNK - Ambulatory Encounter Episcopal Preload LinkLogic [place] [facility] UNK - Ambulatory Encounter Episcopal Preload LinkLogic [place] [facility] UNK - Ambulatory Encounter Episcopal Preload LinkLogic [place] [facility] UNK - Ambulatory Encounter Episcopal Preload LinkLogic [place] [facility] UNK - Ambulatory Encounter Episcopal Preload LinkLogic [place] [facility] UNK - Ambulatory Encounter Episcopal Preload LinkLogic [place] [facility] UNK - Ambulatory Encounter Episcopal Preload LinkLogic [place] [facility] UNK - Ambulatory Encounter Episcopal Preload LinkLogic [facility] UNK - Ambulatory Encounter Episcopal Preload LinkLogic [place] [facility] UNK - Ambulatory Encounter Episcopal Preload LinkLogic [place] [facility] UNK - Ambulatory Encounter Episcopal Preload LinkLogic [facility] UNK - Ambulatory Encounter Episcopal Preload LinkLogic [facility] UNK - Ambulatory Encounter Episcopal Preload LinkLogic [facility] UNK - Ambulatory Encounter Episcopal Preload LinkLogic [place] [facility] UNK - Ambulatory Encounter Episcopal Preload LinkLogic [place] [facility] UNK - Ambulatory Encounter Episcopal Preload LinkLogic [facility] UNK - Ambulatory Encounter Episcopal Preload LinkLogic [facility] UNK - Ambulatory Encounter Episcopal Preload LinkLogic [facility] UNK - Ambulatory Encounter Episcopal Preload LinkLogic [facility] UNK - Ambulatory Encounter Episcopal Preload LinkLogic [facility] UNK - Ambulatory Encounter Episcopal Preload LinkLogic [facility] UNK - Ambulatory Encounter Episcopal Preload LinkLogic [facility] UNK - Ambulatory Encounter Episcopal Preload LinkLogic [facility] UNK - Ambulatory Encounter Episcopal Preload LinkLogic [facility] UNK - Ambulatory Encounter Episcopal Preload LinkLogic [facility] UNK - Ambulatory Encounter Episcopal Preload LinkLogic [facility] UNK - Ambulatory Encounter Colleen [facility] UNK - Ambulatory Encounter Sharpetaniya Batistaen Gulshan [facility] UNK - Ambulatory Encounter [facility] Annemarie Batistaen Gulshan [facility] UNK - Ambulatory Encounter Gill Macias [facility] Annemarie Batistaen Gulshan [facility] UNK - Ambulatory Encounter Gill Dalton [facility] UNK - Ambulatory Encounter Annemarie Batistaen Gulshan [facility] - [facility] UNK - Ambulatory Encounter Gill Batistaluis Gutierrez [facility] COPDNICOTINE ADDICTIONSARCOIDOSISHYPERTENSIONMUSCLE SPASM - Ambulatory Encounter Ernesto Arellanoony Nabor [facility] UNK VITAL SIGNS Date Observation Value Provider method used to obtain blood pressure automatic Francesca M Lebron " Blood Pressure Position 01 sitting Francesca Lebron " blood pressure, site #1 left arm Francesca Lebron " oxygen saturation, oximetry 95 % Francesca Lebron " blood pressure, diastolic 83 mm[Hg] Francesca Lebron " blood pressure, systolic 129 mm[Hg] Francesca M Lebron " respiratory rate E&M 18 /min Francesca M Lebron " pulse rate E&M 99 /min Edward Delgado " temperature site oral Francesca Lebron " temperature E&M 98.0 [degF] Francesca M Lebron " weight E&M 326.20 lbs. Francesca Lebron " weight in kilograms E&M 148.27 kg Francesca Lebron " height in centimeters E&M 154.94 cm Francesca Lebron " height E&M 61 [in_i] Francesca M Lebron method used to obtain blood pressure automatic Francesca M Lebron " Blood Pressure Position 01 sitting Francesca M Lebron " blood pressure, site #1 left arm Francesca M Lebron " oxygen saturation, oximetry 98 % Francesca M Lebron " blood pressure, diastolic 84 mm[Hg] Francesca M Lebron " blood pressure, systolic 135 mm[Hg] Francesca M Lebron " respiratory rate E&M 18 /min Francesca M Lebron " pulse rate E&M 98 /min Francesca M Lebron " temperature site oral Francesca M Lebron " temperature E&M 98.4 [degF] Francesca M Lebron " weight E&M 321.80 lbs. Francesca M Lebron " weight in kilograms E&M 146.27 kg Francesca Lebron " height in centimeters E&M 154.94 cm Francesca Lebron " height E&M 61 [in_i] Francescalloyd Diana oxygen saturation, oximetry 94 % Nupur Chong [...] weight in kilograms E&M 141.09 kg Stephanie Chalo " height E&M 61 [in_i] Stephanie Isabel [...] Will " temperature E&M 99.5 [degF] Hafsa Iwll " weight E&M 330.13 lbs. Hafsa Will [...] " blood pressure, diastolic 96 mm[Hg] Priya Mars " blood pressure, systolic 129 mm[Hg] Priya Mars " respiratory rate E&M 16 /min Priya Mars " pulse rate E&M 109 /min Priya Mars " temperature E&M 98.9 [degF] Priya Mars " weight E&M 329 lbs. Priya Mars [...] Chapman " height E&M 61 [in_i] Alayna Krausa " height in centimeters E&M 154.94 cm Alayna Krausa oxygen saturation, oximetry 96 % Vivian Sin [...] " Blood Pressure Position 01 sitting Vivian Merrick " blood pressure, site #1 left arm Vivian Merrick " temperature site oral Vivian Sin " [...] Isabel " pulse rate E&M 105 /min Stpehanie Isabel " temperature site oral Stephanie Isabel [...] " pulse rate E&M 98 /min Taina Riccardo " temperature site oral Taina Gu " [...] " blood pressure, systolic 144 mm[Hg] Taina Riccardo " respiratory rate E&M 20 /min Taina Riccardo " pulse rate E&M 101 /min Taina Riccardo " temperature site oral Taina Gu " temperature E&M 98.3 [degF] Taina Riccardo " weight E&M 308.60 lbs. Taina Gu " weight in kilograms E&M 140.27 kg Taina Gu " height in centimeters E&M 154.94 cm Taina Riccardo " height E&M 61 [in_i] Taina Gu oxygen saturation, oximetry 86 % Tainakaylin Gu " method used to obtain blood pressure automatic Atina Riccardo " Blood Pressure Position 01 sitting Taina Gu " blood pressure, site #1 left arm Taina Gu " blood pressure, diastolic 81 mm[Hg] Taina Riccardo " blood pressure, systolic 162 mm[Hg] Taina Riccardo " respiratory rate E&M 22 /min Taina Gu " pulse rate E&M 111 /min Taina Riccardo " temperature site tympanic Taina Gu " [...] " Blood Pressure Position 01 sitting Francesca Stevenson " blood pressure, site #1 right arm [...] " pulse rate E&M 89 /min Francesca Hammondsierrez " temperature E&M 98.4 [degF] Francesca Gamino " method used to obtain blood pressure manual Francesca Gamino " Blood Pressure Position 01 sitting Francesca Gamino " blood pressure, site #1 right arm Francesca Gamino " temperature site oral Francesca Parkerrez " [...] used to obtain blood pressure automatic Loly Short " Blood Pressure Position 01 sitting Loly Winslow " blood pressure, site #1 right arm Loly Winslow " blood pressure, diastolic 74 mm[Hg] Loly Winslow " blood pressure, systolic 121 mm[Hg] Loly Winslow " respiratory rate E&M 28 /min Loly Winslow " pulse rate E&M 101 /min Lolyvasquez Winslow " temperature site oral Loly Winslow" temperature E&M 97.9 [degF] Loly Winslow " weight E&M 281 lbs. Loly Winslow " weight in kilograms E&M 127.73 kg Loly Winslow " height E&M 61 [in_i] Loly Winslow" height in centimeters E&M 154.94 cm Loly [...] LinkLogic " oxygen saturation, oximetry 97 % LinkLog " respiratory rate E&M 22 /min [employer] " pulse rate E&M 96 /min [employer] " weight E&M 267.00 lbs. LinkLog " temperature E&M 98.8 [degF] [employer] " blood pressure, diastolic 80 mm[Hg] [employer]Log[employer] respiratory rate E&M 20 /min [employer]Log " blood pressure, diastolic 90 mm[Hg] [employer]Log[employer] " temperature E&M 99.4 [degF] [employer]Log[employer] " pulse rate E&M 88 /min [employer]Log " oxygen saturation, oximetry 96 % LinkLog [...] LinkLog " oxygen saturation, oximetry 98 % LinkLog temperature site tympanic Colleen Pace " oxygen [...] weight in kilograms E&M 123.64 kg Honey Gutierrez " height E&M 61 [in_i] Honey Gutierrez " height in centimeters E&M 154.94 cm Honey Gutierrez " respiratory rate E&M 24 /min Honey Gutierrez " method used to obtain blood pressure manual Honey Gutierrez " Blood Pressure Position 01 sitting Honey Gutierrez " blood pressure, site #1 right arm Honey Gutierrez " blood pressure, diastolic 90 mm[Hg] Honey Gutierrez " blood pressure, systolic 118 mm[Hg] Honey Gutierrez " temperature site oral Honey Gutierrez " temperature E&M 98.7 [degF] Honey Gutierrez [...] of total hemoglobin 7.3 % Edward Roa Nnabuife hepatitis B surface antigen Negative LinkLogic Negative [...] 3.4-10.8 High blood glucose, random 256 mg/dL Jamarshericelinda [facility] " hemoglobin A1C, blood, as % of total hemoglobin 8.3 % [facility] hematocrit, blood 37.6 % Kayla Lipscomb " hemoglobin, blood 11.0 g/dL Kayla Ruel " leukocyte count, blood 9.9 10*3/mm3 Kayla Ruel " Estimated Glomerular Filtration Rate (calc) 90 mL/min/((173/100).m2) Kayla Lipscomb " creatinine, serum 0.80 mg/dL Kayla Ruel " urea nitrogen, blood 12 mg/dL Kayla Ruel " potassium, serum 3.6 mmol/L Kayla Ruel " sodium, serum 137 mmol/L Kayla Ruel blood glucose, random 289 mg/dL Violette Yuri [...] day as needed for pain and inflammation Opallinda Roa Danny DEBROX 6.5 % OTIC SOLUTION apply 10 drops in each ear Twice a Day Opallinda Roa Danny NEBULIZER Please use as indicated Bryankathya Roa Danny METFORMIN HCL 1000 MG TABS TAKE 1 TABLET BY MOUTH TWICE DAILY Tiara Christianson [facility] MUCINEX 600 MG ORAL TABLET EXTENDED RELEASE 12 HOUR take 1 tablet twice a day Bryankathya Roa Danny TESSALON PERLES 100 MG ORAL CAPSULE 1 by mouth 3 times a day as needed for cough Jamaromarlinda Roa Danny CONTRAVE 8-90 MG ORAL TABLET EXTENDED RELEASE 12 HOUR 1 tab in the am x 1 week, then 1 tab Twice a Day x 1 week , then 2 tab in the am and 1 tab in the pm x1 week, then 2 tab twice a day Jamarodilia Roa Danny METFORMIN 500MG TAB TAKE 1 TABLET BY MOUTH ONCE DAILY [facility] FREESTYLE LANCETS Use as directed to test blood sugar once daily [facility] ICD CODE E11.9 FREESTYLE LITE TEST IN VITRO STRIP Use as directed to test blood sugar once daily [facility] ICD CODE E11.9 FREESTYLE FREEDOM LITE W/DEVICE KIT Use as directed to test blood sugar once daily [facility] ICD CODE E11.9 BD ULTRA-FINE [...] 15 MINUTES BEFORE DINNER DAILY Katy Ellsworth [facility] AZITHROMYCIN 250 MG ORAL TABLET 2 [...] a Day to administer insulin Tiara Christianson [facility] Updated directions IPRATROPIUM/ ALBUTER EMI USE 1 AMPULE IN NEBULIZER EVERY 4 HOURS NEEDED FOR WHEEZING Tiara [facility] AZITHROMYCIN 250 MG ORAL TABLET 2 tablets [...] take 2 tablet Twice a Day Edward Boyceuife CYCLOBENZAPRINE HCL 10 MG ORAL TABLET take 1 By Mouth Three Times a Day As Needed - Titi Kaitlynn ADVAIR DISKUS 250-50 MCG/DOSE INHALATION AEROSOL POWDER BREATH ACTIVATED 1 puff BID - Annemarie Gaffney LISINOPRIL-HYDROCHLOROTHIAZIDE 10-12.5 MG ORAL TABLET take 1 By Mouth daily - Edward Whiteabuinasir PREDNISONE 20MG TAB TAKE 1 TABLET BY [...] E&M Single. Not homeless. Born in [facility]. City: [facility]. State: [place]. Not employed. Retired. Highest education level: high school graduate. Gender of partner(s): male. Francesca Diana " social history reviewed E&M reviewed today Francesca Diana " assessment of health literacy ([facility] 2014 Standards, 3C10) Adequate Francesca Diana " passive cigarette smoke exposure Yes Francesca Diana " smoking status former smoker Francesca Diana " Exercise Program Referral T Francesca Diana " Weight Management Counseling Provided T Francesca Diana " Nutrition intervention T Francesca Diana time of call 07/18/2019 2:19 PM Eusebia Gagnon social history E&M Single. Not homeless. Born in [facility]. City: [facility]. State: [place]. Not employed. Retired. Highest education level: high school graduate. Gender of partner(s): male. Francesca Diana " social history reviewed E&M reviewed today Francesca Diana " assessment of health literacy ([facility] 2014 Standards, 3C10) Adequate Francesca Diana " passive cigarette smoke exposure Yes Francesca Diana " smoking status former smoker Francesca Diana " Exercise Program Referral T Francesca Diana " Weight Management Counseling Provided T Francesca Diana " Nutrition intervention T Francesca Orozco [place] Exercise Program Referral T Satinder Harman " Weight Management Counseling Provided T Satinder Harman " Nutrition intervention Miguel A Harman drug use, illicit Never Nupur Chong " alcohol use Currently Nupur Chong " social history E&M Single. Not homeless. Born in [facility]. City: [facility]. State: [place]. Not employed. Retired. Highest education level: high school graduate. Gender of partner(s): male. Nupur Chong " social history reviewed E&M reviewed today Nupur Chong " assessment of health literacy ([facility] 2014 Standards, 3C10) Adequate Nupur Chong " passive cigarette smoke exposure Yes Nupur Chong " smoking status former smoker Nupur Chong time of call 04/02/2019 8:30 AM Daphney Espitia drug use, illicit Never Stephanie Isabel " alcohol use Currently Stephanie Isabel " social history E&M Single. Not homeless. Born in [facility]. City: [facility]. State: [place]. Not employed. Retired. Highest education level: high school graduate. Gender of partner(s): male. Stephanie Isabel " social history reviewed E&M reviewed today Stephanie Isabel " assessment of health literacy ([facility] 2014 Standards, 3C10) Adequate Stephanie Isabel " passive cigarette smoke exposure Yes Stephanie Isabel " smoking status former smoker Stephanie Isabel " Exercise Program Referral T Stephanie Isabel " Weight Management Counseling Provided T Stephanie Isabel " Nutrition intervention T Stephanie Isabel sunscreen use No [facility] " Exercise Program Referral T [place] [facility] " Weight Management Counseling Provided T [place] [facility] " Nutrition intervention T [place] [facility] " drug use, illicit Never Nupur Chong " alcohol use Currently Nupur Chong " social history E&M Single. Not homeless. Born in [facility]. City: [facility]. State: [place]. Not employed. Retired. Highest education level: high school graduate. Gender of partner(s): male. Nupur Chong " social history reviewed E&M reviewed today Nupur Chong " assessment of health literacy ([facility] 2014 Standards, 3C10) Adequate Nupur Chong [...] E&M Single. Not homeless. Born in [facility]. City: [facility]. State: [place]. Not employed. Retired. Highest education level: high school graduate. Gender of partner(s): male. Nupur Chogn " social history reviewed E&M reviewed today Nupur Chong " assessment of health literacy ([facility] 2014 Standards, 3C10) Adequate Nupur Chong " passive cigarette smoke exposure No Nupur Chong " smoking status former smoker Nupur Chong time of call 11/21/2018 9:45 AM Joaquim Engel drug use, illicit Never Stephanie Isabel " alcohol use Currently Stephanie Isabel " social history E&M Single. Not homeless. Born in [facility]. City: [facility]. State: [place]. Not employed. Retired. Highest education level: high school graduate. Gender of partner(s): male. Stephanie Isabel " social history reviewed E&M reviewed today Stephanie Isabel " assessment of health literacy ([facility] 2014 Standards, 3C10) Adequate Stephanie Isabel " [...] E&M Single. Not homeless. Born in [facility]. City: [facility]. State: [place]. Not employed. Retired. Highest education level: high school graduate. Gender of partner(s): male. Hafsa Will " social history reviewed E&M reviewed today Hafsa Will " assessment of health literacy ([facility] 2014 Standards, 3C10) Adequate Hafsa Will " [...] E&M Single. Not homeless. Born in [facility]. City: [facility]. State: [place]. Not employed. Retired. Highest education level: high school graduate. Gender of partner(s): male. Violette Pool " social history reviewed E&M reviewed today Violette Pool " assessment of health literacy ([facility] 2014 Standards, 3C10) Adequate Violette Pool " passive cigarette smoke exposure No Violette Pool " smoking status former smoker Violette Pool alcohol use Currently Hafsa Will " drug use, illicit Never Hafsa Will " social history E&M Single. Not homeless. Born in [facility]. City: [facility]. State: [place]. Not employed. Retired. Highest education level: high school graduate. Gender of partner(s): male. Hafsa Will " social history reviewed E&M reviewed today Hafsa Will " assessment of health literacy ([facility] 2014 Standards, 3C10) Adequate Hafsa Will " [...] E&M Single. Not homeless. Born in [facility]. City: [facility]. State: [place]. Not employed. Retired. Highest education level: high school graduate. Gender of partner(s): male. Priya Mars " social history reviewed E&M reviewed today Priya Jack " assessment of health literacy ([facility] 2014 Standards, 3C10) Adequate Priay Jerad " is there any chance that you could be ? No Priya Jerad " passive cigarette smoke exposure Yes Priya Jerad " smoking status former smoker Priya Jerad " Exercise Program Referral T Priya Jerad " Weight Management Counseling Provided T Priya Jerad " Nutrition intervention T Priya Jerad time of call 05/03/2018 12:59 PM Raysa Potts Exercise Program Referral T Edward Roa Nnabuife " Weight Management Counseling Provided T Edward Roa Nnabuife " Nutrition intervention T Edward Roa Nnabuife " social history E&M Single. Not homeless. Born in [facility]. City: [facility]. State: [place]. Not employed. Retired. Highest education level: high school graduate. Gender of partner(s): male. Alayna Chapman " social history reviewed E&M reviewed today Alayna Chapman " assessment of health literacy ([facility] 2014 Standards, 3C10) Adequate Alayna Chapman " passive cigarette smoke exposure Yes Alayna Chapman " smoking status former smoker Alayna Chapman time of call 04/24/2018 11:41 AM Gayle Moratayabrandt Serrano drug use, illicit Never Stephanie Isabel " alcohol use Currently Stephanie Isabel " social history E&M Single. Not homeless. Born in [facility]. City: [facility]. State: [place]. Not employed. Retired. Highest education level: high school graduate. Gender of partner(s): male. Stephanie Isabel " social history reviewed E&M reviewed today Stephanie Isabel " assessment of health literacy ([facility] 2014 Standards, 3C10) Adequate Stephanie Isabel " [...] E&M Single. Not homeless. Born in [facility]. City: [facility]. State: [place]. Not employed. Retired. Highest education level: high school graduate. Gender of partner(s): male. Alayna Chapman " social history reviewed E&M reviewed today Alayna Chapman " assessment of health literacy ([facility] 2014 Standards, 3C10) Adequate Alayna Chapman " passive cigarette smoke exposure No Alayna Chapman " smoking status former smoker Alayna Chapman " Exercise Program Referral T Alayna Chapman " Weight Management Counseling Provided T Alayna Chapman " Nutrition intervention T Alayna Chapman Exercise Program Referral T [facility] " Weight Management Counseling Provided T [place] [facility] " Nutrition intervention T [place] [facility] " alcohol use Currently Alayna Chapman " social history E&M Single. Not homeless. Born in [facility]. City: [facility]. State: [place]. Not employed. Retired. Highest education level: high school graduate. Gender of partner(s): male. Alayna Chapman " social history reviewed E&M reviewed today Alayna Chapman " assessment of health literacy ([facility] 2014 Standards, 3C10) Adequate Alayna Chapman " passive cigarette smoke exposure No Alayna Chapman " smoking status former smoker Alayna Chapman " assessment of health literacy ([facility] 2014 Standards, 3C10) Adequate Alayna Chapman " drug use, illicit Never Alayna Chapman " alcohol use Currently Alayna Chapman " social history E&M Single. Not homeless. Born in [facility]. City: [facility]. State: [place]. Not employed. Retired. Highest education level: high [...] 1, thoughts of harming yourself Yes Toma Chuck " family support Adult Children (23, 21, and 19). Toma Woods drug use, illicit Never Vivian Sin " alcohol use Currently Vivianmario Sin " social history E&M Single. Not homeless. Born in [facility]. City: [facility]. State: [place]. Not employed. Retired. Highest education level: high [...] E&M Single. Not homeless. Born in [facility]. City: [facility]. State: [place]. Not employed. Retired. Highest education level: high [...] Edward Delgado " Nutrition intervention T Edward Boyceuife " social history E&M Single. Not homeless. Born in [facility]. City: [facility]. State: [place]. Not employed. Retired. Highest education level: high school graduate. Gender of partner(s): male. Opalfabiánjose j Crispin Delgado " social history reviewed [...] E&M Single. Not homeless. Born in [facility]. City: [facility]. State: [place]. Not employed. Retired. Highest education level: high school graduate. Gender of partner(s): male. Abisaijose j Crispin Delgado " social history reviewed E&M reviewed today Edward Boyceuinasir " passive cigarette smoke exposure Yes Taina Riccardo " smoking status former smoker Taina Gu time of call 08/11/2017 8:56 AM Donnamichael Landis Exercise Program Referral T Titicleveland Calderón " Weight Management Counseling Provided T Titicleveland Calderón " Nutrition intervention T Titi Kaitlynn " passive cigarette smoke exposure No Taina Riccardo " smoking status former smoker Taina Gu time of call 07/21/2017 4:25 PM Alayna Gu social history E&M Single. Not homeless. Born in [facility]. City: [facility]. State: [place]. Not employed. Retired. Highest education level: high school graduate. Gender of partner(s): male. Edward Delgado " social history reviewed E&M reviewed today Edward Boyceuinasir " Exercise Program Referral T Edward Whiteabuife " Weight Management Counseling Provided T Edward Whiteabuife " Nutrition intervention T Edward Whiteabuife time of call 07/08/2017 10:03 AM Ana [...] E&M Single. Not homeless. Born in [facility]. City: [facility]. State: [place]. Not employed. Retired. Highest education level: high [...] " smoking status current every day smoker Loyl Winslow " passive cigarette smoke exposure Yes [...] E&M Single. Not homeless. Born in [facility]. City: [facility]. State: [place]. Not employed. Retired. Highest education level: high [...] score, Activities of Daily Living (ADL) Independent [facility] Activities of Daily Living (ADLs, IADLs, etc.) Decrease in ADL [facility] MENTAL STATUS Date Observation Value Provider assessment of judgment and insight E&M intact [facility] " mental status examination: orientation E&M oriented to time, place, and person [facility] Boyceui " assessment of mood and affect E&M no depression, anxiety, or agitation [facility] " Generalized Anxiety Disorder Questionnaire - Question 2 0 Francesca Diana " Generalized Anxiety Disorder Questionnaire - Question 1 0 Francesca Diaan assessment of judgment and insight E&M intact [facility] " mental status examination: orientation E&M oriented to time, place, and person [facility] Boy[facility]ui " assessment of mood and affect E&M no depression, anxiety, or agitation [facility] Delgado " Generalized Anxiety Disorder Questionnaire - Question 2 0 Francesca Diana " Generalized Anxiety Disorder Questionnaire - Question 1 0 Francesca Diana assessment of judgment and insight E&M intact [facility] " assessment of mood and affect E&M no depression, anxiety, or agitation Chufabiánscjose j [facility] " mental status examination: orientation E&M oriented to time, place, and person [facility] " Generalized Anxiety Disorder Questionnaire - Question 2 0 Nupur Chong " Generalized Anxiety Disorder Questionnaire - Question 1 0 Nupur Chong assessment of judgment and insight E&M intact Chukfabiánscjose j [facility] " mental status examination: orientation E&M oriented to time, place, and person [facility] " assessment of mood and affect E&M no depression, anxiety, or agitation [facility] " Generalized Anxiety Disorder Questionnaire - Question 2 0 Stephanie Isabel " Generalized Anxiety Disorder Questionnaire - Question 1 0 Stephanie Isabel assessment of judgment and insight E&M intact Chuvidhyafabiánscjose j [facility] " mental status examination: orientation E&M oriented to time, place, and person Chukfabiánscjose j [facility] " assessment of mood and affect E&M anxious, depressed mood [facility] " Generalized Anxiety Disorder Questionnaire [...] assessment of judgment and insight E&M intact Chuvidhyawfabiánscjose j [facility] " mental status examination: orientation E&M oriented to time, place, and person [facility] " assessment of mood and affect E&M anxious, depressed mood [facility] " Generalized Anxiety Disorder Questionnaire - Question 2 0 Stephanie Isabel " Generalized Anxiety Disorder Questionnaire - Question 1 0 Stephanie Isabel assessment of judgment and insight E&M intact [facility] " mental status examination: orientation E&M oriented to time, place, and person [facility] " assessment of mood and affect E&M anxious, depressed mood Edward Fragafe mental status examination: orientation E&M alert and oriented Tiyn Mckeon " assessment of mood and affect E&M normal affect Tiny George Tracyuna Generalized Anxiety Disorder Questionnaire - Question 2 0 Hafsa Will " Generalized Anxiety Disorder Questionnaire - Question 1 0 Hafsa Will Generalized Anxiety Disorder Questionnaire - Question 2 0 Violette Welch " Generalized Anxiety Disorder Questionnaire - Question 1 0 Violette Welch assessment of judgment and insight E&M intact [facility] " mental status examination: orientation E&M oriented to time, place, and person [facility] " assessment of mood and affect E&M anxious, depressed mood Edward Boyceui assessment of judgment and insight E&M intact [facility] " mental status examination: orientation E&M oriented to time, place, and person [facility] Whiteabui " assessment of mood and affect E&M anxious, depressed mood [facility] " Generalized Anxiety Disorder Questionnaire - Question 2 0 Priya Mars " Generalized Anxiety Disorder Questionnaire - Question 1 0 Priya Mars assessment of judgment and insight E&M intact Edward Whiteabui " mental status examination: orientation E&M oriented to time, place, and person [facility] " assessment of mood and affect E&M anxious, depressed mood [facility] " Generalized Anxiety Disorder Questionnaire - Question 2 0 Alayna Chapman " Generalized Anxiety Disorder Questionnaire - Question 1 0 Alayna Chapman assessment of judgment and insight E&M intact Edward Roa [facility] " mental status examination: orientation E&M oriented to time, place, and person [facility] " assessment of mood and affect E&M anxious, depressed mood [facility] " Generalized Anxiety Disorder Questionnaire - Question 2 0 Stephanie Chalo " Generalized Anxiety Disorder Questionnaire - Question 1 0 Stephanie Chalo assessment of judgment and insight E&M intact Edward [facility] " mental status examination: orientation E&M oriented to time, place, and person [facility] " assessment of mood and affect E&M anxious, depressed mood [facility] " Generalized Anxiety Disorder Questionnaire - Question 2 0 Alayna Chapman " Generalized Anxiety Disorder Questionnaire - Question 1 0 Alayna Chapman assessment of judgment and insight E&M intact [facility] " mental status examination: orientation E&M oriented to time, place, and person [facility] " assessment of mood and affect E&M anxious, depressed mood [facility] [facility] " Generalized Anxiety Disorder Questionnaire - Question 2 0 Alayna Chapman " Generalized Anxiety Disorder Questionnaire - Question 1 0 Alayna Chapman assessment of judgment and insight E&M intact [facility] mental status examination: orientation E&M oriented to time, place, and person [facility] " assessment of mood and affect E&M anxious, depressed mood [facility] " Generalized Anxiety Disorder Questionnaire [...] mood and affect E&M anxious, depressed mood [facility] assessment of judgment and insight E&M intact [facility] " mental status examination: orientation E&M oriented to time, place, and person [facility] " If any problems checked, how difficult [...] assessment of judgment and insight E&M intact [facility] " mental status examination: orientation E&M oriented to time, place, and person [facility] " assessment of mood and affect E&M no depression, anxiety, or agitation [facility] " Generalized Anxiety Disorder Questionnaire - Question 2 0 Stephanie Isabel " Generalized Anxiety Disorder Questionnaire - Question 1 0 Stephanie Isabel Generalized Anxiety Disorder Questionnaire - Question 2 0 Nupur Castillo " Generalized Anxiety Disorder Questionnaire - Question 1 0 Nupur Chong mental status examination: recall E&M intact for recent and remote events [facility] " assessment of judgment and insight E&M intact [facility] " mental status examination: orientation E&M oriented to time, place, and person [facility] " assessment of mood and affect E&M no depression, anxiety, or agitation [facility] " Generalized Anxiety Disorder Questionnaire [...] E&M intact for recent and remote events [facility] " mental status examination: orientation E&M oriented to time, place, and person [facility] " assessment of judgment and insight E&M intact [facility] " assessment of mood and affect E&M no depression, anxiety, or agitation [facility] " Generalized Anxiety Disorder Questionnaire - Question [...] anxious appearing due to respiratory distress Comfort Treivno " Generalized Anxiety Disorder Questionnaire - Question [...] name Policy type / Coverage type Covered alliance party ID [employer] Medicare HMO Medicare HMO [id number] ADVANCE DIRECTIVES No Information Available TREATMENT PLAN [...] - - Est Patient Exp Problem - 27842 Finger Stick Glucose Est Patient Exp Problem - 72864 Est Patient Exp Problem - 85589 Est Patient Detailed - 30436 New Patient Intermediate Opth - 84308 Finger Stick Glucose Ear Irrigation Est Patient Exp Problem - 75901 Est Patient Exp Problem - 48695 Retinal Screening Est Patient Well Exam (40 - 64 Yrs) - 53167 Est Patient Detailed - 91618 Est Patient Exp Problem - 43930 Est Patient Exp Problem - 47085 New Patient Comprehensive - 97269 Glucose Stick Est Patient Exp Problem - 24415 Glucose Stick Est Patient Exp Problem - 68019 Prescription Assistance (Non-HIV) Glucose Stick Est Patient Exp Problem - 69805 Endocrinology - Adult - [facility] HEMOGLOBIN A1C - In House Est Patient Exp Problem - 21557 Est Patient Detailed - 92901 Est Patient Exp Problem - 82716 Est Patient Detailed - 24012 [facility] Assessment - Critical Care Rn Diagnostic evaluation (no medical) - 56275 Integrated Behavioral Health Assessment (IBH) Est Patient Exp Problem - 08565 Est Patient Detailed - 32111 Ofc Vst, Est Level V Est Patient Exp Problem - 87381 Est Patient Exp Problem - 14570 Ofc Vst, Est Level IV Est Patient Exp Problem - 24311 Ofc Vst, Est Level V Est Patient Exp Problem - 39049 Est Patient Detailed - 14582 Est Patient Detailed - 03843 ALBUTEROL INHAL ADMIN THRU DME 1MG Est Patient Detailed - 06143 Est Patient Exp Problem - 98197 Est Patient Exp Problem - 97368 Ear Irrigation Est Patient Exp Problem - 65458 Ofc Vst, Est Level III Est Patient Exp Problem - 89794 HISTORY OF PROCEDURES Procedure Date Procedure Name Provider Procedure Notes Status Finger Stick Glucose Gill Villafuerte completed New Patient Intermediate Opt - 60292 Satinder Harman completed Finger Stick Glucose Satinder Harman completed Ear Irrigation Satinder Harman completed Glucose Stick Gill Villafuerte completed Glucose Stick Satinder Harman completed Glucose Stick Gill Villafuerte completed HEMOGLOBIN A1C - In House Comfort Trevino completed IB Assessment - Critical Care Rn Toma Woods completed Diagnostic evaluation (no medical) - 26720 Toma Woods completed ALBUTEROL INHAL ADMIN THRU DME 1MG Deniz Brown completed Ear Irrigation Thea Junior completed GOALS No Information Available [facility] No Information Available
--- OUTSIDE RECORDS SUMMARY | 2019-09-25 17:44 | XMS REPORT ---
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[place] Mood Disorder, NOS active Toma Woods Suicidal ideation active Edward Delgado Depression, major active Edward Delgado COPD with exacerbation active Edward Fragafe BMI 50.0-59.9 completed - Tiny Vazquez Mckeon Chronic bronchitis active Edward Delgado Breast abnormal findings active Edward Delgado Otitis media, acute completed - Titicleveland Sommermi [...] Location Encounter Diagnosis - [facility] En[facility] Violette Rome [facility] UNK - Ambulatory Encounter Edward Roa Nnabuife [facility] UNK - Ambulatory Encounter LSJ Lab Support Desktop LinkLogic Edward Gnosticism [place] Edward Gnosticism Nnabuife [facility] UNK - Ambulatory Encounter Fax Status LinkLogic [facility] UNK - Ambulatory Encounter Fax Status LinkLogic [facility] UNK - Ambulatory Encounter Fax Status LinkLogic [facility] UNK - Ambulatory Encounter Edward Roa Nnabuinasir Leon Gnosticism Nnabuife [facility] UNK - Ambulatory Encounter Edward Whiteabuinasir Leon Gnosticism Nnabuife [facility] UNK - Ambulatory Encounter Chuodilia Roa [place] Edward Gnosticism Nnabuife [facility] UNK - Ambulatory Encounter Satinder Josephuekathya Roa [place] Edward Roa [place] Francesca Diana [facility] Digna, internal - Ambulatory Encounter Comfort Marroquin [facility], [facility] UNK - Ambulatory Encounter Comfort Langley MedAdherence [facility] UNK - Ambulatory Encounter Kimberly Gagnon [place] UNK - Ambulatory Encounter Gill Marroquin MedAdherence, [facility] UNK - Ambulatory Encounter [place] Gnosticism [place] Gautamwlinda Gnosticism Nnabuife [facility] UNK - Ambulatory Encounter Abisaijose j Gnosticism [place] Edward Gnosticism Nnabuife [facility] UNK - Ambulatory Encounter Gill Leon Gnosticism [place] Edward Gnosticism [place] Francescalloyd Diana [facility] UNK - Ambulatory Encounter Comfort Ellsworth MedAdherence, [facility] UNK - Ambulatory Encounter [facility] - [facility] Encounter Edward Roa Nnabuinasir Roa [place] [facility] UNK - Ambulatory Encounter Comfort Hernandez MedAdherence [facility] UNK - Ambulatory Encounter Fax [facility]K - Ambulatory Encounter Fax Status [facility]K - Ambulatory Encounter Fax Status [facility] UNK - Ambulatory Encounter Edward Roa Nnabu[place] Edward Gnosticism [place] LinkLogic [facility] UNK - Ambulatory Encounter Satinder Ghazal Florezwuekathya Roa [place] Gautamwuemejose j Gnosticism N[place]ife [facility] Hypokalemia, mild - Ambulatory Encounter [place]wuem[place] Gnosticism [place] Edward Gnosticism Nnabuife [facility] UNK - Ambulatory Encounter LSJ Lab Support Desktop LinkLogic Edward Roa [place] Edward Gnosticism Nnabuife [facility] UNK - Ambulatory Encounter Fax Status LinkLogic [facility] UNK - Ambulatory Encounter Fax Status LinkLogic [facility] UNK - Ambulatory Encounter Fax Status [facility] UNK - Ambulatory Encounter Fax Status [facility] UNK - Ambulatory Encounter Edward Roa Nnabuinasir Leon Gnosticism Nnabuife [facility] UNK - Ambulatory Encounter Edward Roa [place] Edward Gnosticism Nnabuife [facility] UNK - Ambulatory Encounter Edward Roa Nn[place] Edward Gnosticism Nnabuife [facility] UNK - Ambulatory Encounter Satinder Roa [place] Edward Roa [place] Sheryl Odonnell [facility] UNK - Ambulatory Encounter Comfort Pedersen MedAdherence [facility] UNK - Ambulatory Encounter Comfort Christianson MedAdherence [facility] UNK - Ambulatory Encounter Tiara Christianson MedAdherence [facility] UNK - Ambulatory Encounter Edward Whiteabuife Edward Gnosticism [place] LinkLogic [facility] UNK - Ambulatory Encounter Osiris Gordon LinkLogic [facility] UNK - Ambulatory Encounter Edward Gnosticism [place] Edward Gnosticism [place] LinkLogic [facility] UNK - Ambulatory Encounter Comfort Christianson [facility] UNK - Ambulatory Encounter Edward Magañaian [place] Edward Gnosticism Nnabuife [facility] UNK - Ambulatory Encounter Edward Magañaian [place] Edward Gnosticism Nnabuife [facility] UNK - Ambulatory Encounter Chuodilia Gnosticism [place] Edward Gnosticism Nnabuife [facility] UNK - Ambulatory Encounter Satinder Leon Gnosticism [place] Edward Gnosticism Nnabuife [facility] Chronic pain syndrome - Ambulatory Encounter Edward Gnosticism [place] Edward Gnosticism Nnabuife [facility] UNK - Ambulatory Encounter LSJ Lab Support Desktop LinkLogic Edward Gnosticism [place] Edward Gnosticism Nnabuife [facility] UNK - Ambulatory Encounter Edward Gnosticism [place] Edward Gnosticism Nnabuife [facility] UNK - Ambulatory Encounter Edward Gnosticism Danny Roa Nnabuinasir [facility] UNK - Ambulatory Encounter Comfort Whiteabuinasir Roa Nnabuinasir Benítez [facility] Well woman examCerumen impaction, bilateral - Ambulatory Encounter Satinder Christianson MedAdherence [facility] UNK - Ambulatory Encounter Satinder Christianson MedAdherence Meridian Gagnon [place] UNK - Ambulatory Encounter Satinder Christianson MedAdherence Edward Whiteabjaimie Whiteabjaimie Gagnon [facility] UNK - Ambulatory Encounter Satinder Christianson MedAdherence [facility] UNK - Ambulatory Encounter Tiara Christianson [facility] UNK - Ambulatory Encounter Edward Whiteabjaimie Whiteabuinasir [facility] - Ambulatory Encounter Edward Whiteabuinasir [facility] UNK - Ambulatory Encounter Satinder Christianson MedAdherence [facility] UNK - Ambulatory Encounter Satinder Harman [facility] UNK - Ambulatory Encounter Fax Status [facility] UNK - Ambulatory Encounter Fax Status [facility] UNK - Ambulatory Encounter Fax Status LinkLogic [facility] UNK - Ambulatory Encounter Fax Status LinkLogic [facility] UNK - Ambulatory Encounter Fax Status LinkLogic [facility] UNK - Ambulatory Encounter Fax Status LinkLogic [facility] UNK - Ambulatory Encounter Satinder Chong Simdoris Estrada [facility] UNK - Ambulatory Encounter Tiara Christianson MedAdherence Satinder Engel [facility] Contact Center UNK - Ambulatory Encounter Kimberly Roa [place] Edward Whiteabjaimie [facility] Contact Center UNK - Ambulatory Encounter Satinder Christianson MedAdherence [facility] UNK - Ambulatory Encounter Satinder Harman LinkLogic [facility] UNK - Ambulatory Encounter Fax Status [facility] UNK - Ambulatory Encounter Yonnydarryl Sierra Christianson MedAdherence [facility] UNK - Ambulatory Encounter Edward Gnosticism [place] Edward Gnosticism [place] LinkLogic [facility] UNK - Ambulatory Encounter Chuodilia Gnosticism [place] Edward Gnosticism [place] LinkLogic [facility] UNK - Ambulatory Encounter Chuodilia Gnosticism [place] Edward Gnosticism Nnabuife [facility] UNK - Ambulatory Encounter Chukwuemejose j Gnosticism Nnabuinasir Roldankwuemeojse j Gnosticism Nnabuife [facility] UNK - Ambulatory Encounter Abisaijose j Crispin Whiteabuinasir Roldankwuejose j Gnosticism Nnabuife [facility] UNK - Ambulatory Encounter Lo Esquivel Stephanie Roldankwuekathya Roa [place] Jamarkwuemejose j Roa Nnabuife [facility] BMI 60.0-69.9, adultBMI 50.0-59.9 - Ambulatory Encounter Alayna Nava [facility] UNK - Ambulatory Encounter Kayla Ruel [facility] UNK - Ambulatory Encounter Kaylakaylin VoRuel [facility] UNK - Ambulatory Encounter Abisaijose j Gnosticism Nnabuinasir Roldankwuemejose j Roa [place] Kayla Voreaux [facility] UNK - Ambulatory Encounter Satinder Christianson MedAdherence Kayla Roldankwuemeka Crispin Whiteabuinasir Roldankwuemejose j Roa [place] Jaden Reich [facility] UNK - Ambulatory Encounter Fax Status LinkLogic [facility] UNK - Ambulatory Encounter Fax Status LinkLogic [facility] UNK - Ambulatory Encounter Fax Status LinkLogic [facility] UNK - Ambulatory Encounter Fax Status LinkLogic [facility] UNK - Ambulatory Encounter Bhavya Pedersen MedAdherence Clementine Velasquez [facility] Contact Center UNK - Ambulatory Encounter Edward Delgado Edward Gnosticism Nnabuife [facility] UNK - Ambulatory Encounter Edward Gnosticism [place] Edward Gnosticism Nnabuife [facility] UNK - Ambulatory Encounter Edward Gnosticism [place] Edwrad Gnosticism Nnabuife [facility] UNK - Ambulatory Encounter Comfort Magañaian [place] Edward Gnosticism [place] Hafsa Will [facility] Dyspnea at restCHF exacerbation - Ambulatory Encounter Tiny Vazquez Mckeon Tiny Vazquez Mckeon [facility] UNK - Ambulatory Encounter Tiny Vazquez Mckeon Tiny Vazquez Mckeon Violette Welch [facility] BMI 50.0-59.9BMI 60.0-69.9, adult - Ambulatory Encounter Kayla Lipscomb [facility] UNK - Ambulatory En[facility] Francesca Potts [facility] Contact Center UNK - Ambulatory Encounter Violette Pool Kayla Lipscomb [facility] UNK - Ambulatory Encounter Edward Gnosticism [place] Edward Gnosticism [place] LinkLogic [facility] UNK - Ambulatory Encounter Edward Gnosticism [place] Edward Gnosticism Nnabuife [facility] UNK - Ambulatory Encounter Edward Gnosticism Cindyabuife Edward Gnosticism Nnabuife [facility] UNK - Ambulatory Encounter Edward Roa [place] Edward Gnosticism Nnabuife [facility] UNK - Ambulatory Encounter Edward Whiteabuinasir Leon Gnosticism Nn[place]uife [facility] UNK - Ambulatory Encounter Gill Florezwlinda Gnosticism [place] Edward Gnosticism [place] Violette Will [facility] Acute upper respiratory infection - Ambulatory Encounter [facility]havya [facility] UNK - Ambulatory Encounter Satinder Harman [facility] UNK - Ambulatory Encounter Bhavya Pedersen [facility] UNK - Ambulatory Encounter Comfort Trevino LinkLogic [facility] UNK - Ambulatory Encounter Norma Ibarra [facility] UNK - Ambulatory Encounter Fax Status [facility] UNK - Ambulatory Encounter Fax Status [facility] UNK - Ambulatory Encounter Fax Status [facility] UNK - Ambulatory Encounter Alayna Krausa [facility] UNK - Ambulatory Encounter Edward Whiteabuinasir Leon Gnosticism Nnabuife [facility] UNK - Ambulatory Encounter Edward Whiteabuinasir Leon Gnosticism Nn[place]uife [facility] UNK - Ambulatory Encounter Chukkavin Gnosticism [place] Chukwuekathya Gnosticism Nnabuife [facility] UNK - Ambulatory Encounter Satinder Ghazal Roldankwuemejose j Gnosticism [place] Chukwuemejose j Gnosticism [place] Priya Mars [facility] UNK - Ambulatory Encounter Parris Oleary [facility] UNK - Ambulatory Encounter Chukwlinda Gnosticism [place] Chukwuekathya Gnosticism [place] LinkLogic [facility] UNK - Ambulatory Encounter Bhavya Pedersen MedAdherfaheem Roldankwuemejose j Gnosticism [place] Jamarkwuekathya Gnosticism [place] Raysa Potts [facility] Contact Center UNK - Ambulatory Encounter Chukwlinda Gnosticism [place] Jamarkwuekathya Gnosticism Nnabuife [facility] UNK - Ambulatory Encounter Chukwuekathya Gnosticism [place] Chukwuemejose j Gnosticism Nn[place]uife [facility] UNK - Ambulatory Encounter Chukwlinda Gnosticism [place] Chukwuemejose j Gnosticism Nnabuife [facility] UNK - Ambulatory Encounter Chukwuekathya Gnosticism [place] Chukwuemejose j Gnosticism Nnabuife [facility] UNK - Ambulatory Encounter Gill Florezwuemejose j Gnosticism [place] Chukwuekathya Gnosticism Nnabuife [facility] UNK - Ambulatory Encounter Bhavya Pedersen MedAdherence [facility] UNK - Ambulatory Encounter Kayla Serrano [facility] UNK - Ambulatory Encounter Chukwuemejose j Gnosticism [place]wuem[place]a Gnosticism Nnabuife [facility] UNK - Ambulatory Encounter Tab Chang [facility] UNK - Ambulatory Encounter [place] Gnosticism [place] Ch[place]wuem[place]a Gnosticism Nnabuife [facility] UNK - Ambulatory Encounter [place] Gnosticism [place]wuem[place]a Gnosticism Nnabuife [facility] UNK - Ambulatory Encounter LSJ Lab Support Desktop LinkLogic Tab Josephuekathya Gnosticism [place]wu[place]a Gnosticism Nnabuife [facility] UNK - Ambulatory Encounter [place] Gnosticism [place] Chukwuem[place]a Gnosticism Nnabuife [facility] UNK - Ambulatory Encounter [place] Gnosticism [place] Chukwuem[place]a Gnosticism Nnabuife [facility] UNK - Ambulatory Encounter [place] Gnosticism [place] Chukwuem[place]a Gnosticism Nnabuife [facility] UNK - Ambulatory Encounter Comfort Christianson MedAdherence [place] j Gnosticism [place] Gnosticism [place] Marielena Reich [facility] Screening for diabetes mellitusScreening for lipid disorder - Ambulatory Encounter Chukwuemejose j Gnosticism [place] Chukwuekathya Gnosticism Nnabuife [facility] GERD - Ambulatory Encounter Chukkavin Gnosticism [place] Chukwuekathya Gnosticism [place] Stephanie Isabel [facility] UNK - Ambulatory Encounter Chukwlinda Gnosticism [place] Chukwlinda Gnosticism Nnabuife [facility] UNK - Ambulatory Encounter Tab Leon Gnosticism [place] Chukwlinda Gnosticism [place] Vivian Mary [facility] UNK - Ambulatory Encounter Chukkavin Gnosticism [place] Gautamwlinda Gnosticism Nnabuife [facility] UNK - Ambulatory Encounter Chukwlinda Gnosticism [place] Chukwuekathya Gnosticism Nnabuife [facility] UNK - Ambulatory Encounter Chukwlinda Gnosticism [place] Chukwuekathya Gnosticism Nnabuife [facility] UNK - Ambulatory Encounter Comfort Leon Gnosticism [place] Chukwuekathya Gnosticism Nnabuife [facility] Diabetes mellitus type II - Ambulatory Encounter Chukwlinda Gnosticism [place] Chukwuekathya Gnosticism N[place] LinkLogic [facility] UNK - Ambulatory Encounter Chukwlinda Gnosticism [place] Chukwuekathya Gnosticism N[place] LinkLogic [facility] UNK - Ambulatory Encounter Loly Winslow [facility] UNK - Ambulatory Encounter Chuodilia Gnosticism [place] Edward Gnosticism N[place] LinkLogic [facility] UNK - Ambulatory Encounter Chukakvin Gnosticism [place] Edward Gnosticism Nnabuife [facility] UNK - Ambulatory Encounter Chukkavin Gnosticism [place] Chuodilia Gnosticism Nnabuife [facility] UNK - Ambulatory Encounter Chuodilia Gnosticism [place] Edward Gnosticism Nnabuife [facility] UNK - Ambulatory Encounter Chuodilia Gnosticism [place] Edward Gnosticism Nnabuife [facility] UNK - Ambulatory Encounter Satinder Florezwlinda Gnosticism [place] Gautamwlinda Gnosticism Nnabuife [facility] UNK - Ambulatory Encounter Tiara Christianson MedAdherence [facility] UNK - Ambulatory Encounter Bhavya Pedersen MedAdherence [facility] UNK - Ambulatory Encounter Bhavya Pedersen MedAdherence LinkLogic [facility] UNK - Ambulatory Encounter Titi Kaitlynn Titi Kaitlynn LinkLogic [facility] UNK - Ambulatory Encounter Chuodilia Gnosticism [place] Edward Gnosticism N[place] LinkLogic [facility] UNK - Ambulatory Encounter Chuodilia Gnosticism [place] Edward Gnosticism N[place] LinkLogic [facility] UNK - Ambulatory Encounter Chukwlinda Gnosticism N[place] Chukwuemejose j Gnosticism Nnabuife [facility] UNK - Ambulatory Encounter Chukwfabiánmejose j Gnosticism N[place] Chukwuemejose j Gnosticism Nnabuife [facility] UNK - Ambulatory Encounter Chukwuemejose j Gnosticism [place] Chukwuemejose j Gnosticism Nnabuife [facility] UNK - Ambulatory Encounter Chukwuemejose j Gnosticism [place] Chukwuemejose j Gnosticism Nnabuife [facility] UNK - Ambulatory Encounter Comfort Josephlinda Gnosticism N[place]ife Chukwfabiánmejose j Gnosticism Nnabuife [facility] Abdominal distensionAbdominal pain, chronicAscitesUrinary retention - Ambulatory Encounter Tiara Christianson MedAdherence [facility] UNK - Ambulatory Encounter Tiara Christianson MedAdherence [facility] UNK - Ambulatory Encounter Tiara Christianson MedAdherence [facility]Min[facility] UNK - Ambulatory Encounter Comfort Trevino [facility] UNK - Ambulatory Encounter Mae Rodney [facility] UNK - Ambulatory Encounter Fax Status LinkLogic [facility] UNK - Ambulatory Encounter Fax Status LinkLogic [facility] UNK - Ambulatory Encounter Fax Status [facility] UNK - Ambulatory Encounter Fax Status LinkLogic [facility] UNK - Ambulatory Encounter Fax Status [facility] Services UNK - Ambulatory Encounter Fax Status [facility] Services UNK - Ambulatory Encounter Chukwlinda Gnosticism N[place] Chukwuemejose j Gnosticism Nnabuife [facility] UNK - Ambulatory Encounter Chukwlinda Gnosticism [place] Chukwuemejose j Gnosticism Nnabuife [facility] UNK - Ambulatory Encounter Chukkavin Gnosticism [place] Chukwuemejose j Gnosticism Nnabuife [facility] UNK - Ambulatory Encounter Toma Woods [facility] Mood Disorder, NOS - Ambulatory Encounter Lo Florezwuekathya Gnosticism [place] Jamarkwuekathya Gnosticism [place] Vivian Matthews [facility] Depression, majorSuicidal ideation - Ambulatory Encounter Comfort Trevino [facility] UNK - Ambulatory Encounter Tiara Zamora [facility] UNK - Ambulatory Encounter Bhavya Pedersen MedAdherence [facility] UNK - Ambulatory Encounter Bhavya Pedersen MedAdherence LinkLogic [facility] UNK - Ambulatory Encounter Gautamwlinda Gnosticism N[place] Jamarkwuemejose j Gnosticism Nnabuife [facility] UNK - Ambulatory Encounter Chuodilia Gnosticism [place] Chukwuemejose j Gnosticism Nnabuife [facility] UNK - Ambulatory Encounter Chuodilia Gnosticism [place] Gautamwuekathya Gnosticism Nnabuife [facility] UNK - Ambulatory Encounter Chuodilia Gnosticism [place] Gautamwuekathya Gnosticism Nnabuife [facility] UNK - Ambulatory Encounter Chuodilia Gnosticism [place] Gautamwuekathya Gnosticism Nnabuife [facility] UNK - Ambulatory Encounter Gill Roldankwuemejose j Gnosticism [place] Gautamwuekathya Gnosticism Nnabuife [facility] UNK - Ambulatory Encounter Loly Winslow [facility] UNK - Ambulatory Encounter Tiara Christianson MedAdherence [facility] UNK - Ambulatory Encounter Edward Whiteabuife Gautamwuekathya Gnosticism Nnabuife [facility] UNK - Ambulatory Encounter Bhavya Pedersen MedAdherence [facility] UNK - Ambulatory Encounter Bhavya Pedersen MedAdherence LinkLogic [facility] UNK - Ambulatory Encounter Edward Gnosticism Cindyabuife Gautamwuekathya Gnosticism [place] Tab Matthews [facility] UNK - Ambulatory Encounter Comfort Trevino LinkLog [facility] UNK - Ambulatory Encounter Edward Gnosticism Cindyabuife Gautamwlinda Gnosticism Nnabuife [facility] UNK - Ambulatory Encounter Edward Gnosticism Nn[place]uife Edawrd Gnosticism Nnabuife [facility] UNK - Ambulatory Encounter Edward Gnosticism N[place]uife Edward Gnosticism Nnabuife [facility] UNK - Ambulatory Encounter Edward Gnosticism [place] Edward Gnosticism Nnabuife [facility] UNK - Ambulatory Encounter Comfort Leon Gnosticism [place] Edward Gnosticism Nnabuife [facility] COPD with exacerbation - Ambulatory Encounter Tiara Christianson MedAdherence [facility] UNK - Ambulatory Encounter Tiara Christianson MedAdherence Loly Thompson [facility] UNK - Ambulatory Encounter Tiara Christianson MedAdherence [facility] UNK - Ambulatory Encounter Edward Roa Nnabuife Edward Gnosticism Nnabuife [facility] UNK - Ambulatory Encounter Edward Roa N[place] Edward Gnosticism Nnabuife [facility] UNK - Ambulatory Encounter Gill Roa N[place] Edward Gnosticism Nnabuife [facility] UNK - Ambulatory Encounter [facility]oly [facility] - Ambulatory Encounter Edward Roa [place] Chukwuemeka Gnosticism N[place] LinkLogic [facility] UNK - Ambulatory Encounter Loly Landis [facility] UNK - Ambulatory Encounter Fax Status LinkLogic [facility] UNK - Ambulatory Encounter Fax Status LinkLogic [facility] UNK - Ambulatory Encounter Fax Status LinkLogic [facility] UNK - Ambulatory Encounter Fax Status LinkLogic [facility] UNK - Ambulatory Encounter Fax Status LinkLogic [facility] UNK - Ambulatory Encounter Fax Status [facility] UNK - Ambulatory Encounter Titi Kaitlynn Titi Kaitlynn [facility] UNK - Ambulatory Encounter Titi Kaitlynn Titi Kaitlynn [facility] UNK - Ambulatory Encounter Titi Kaitlynn Titi Kaitlynn [facility] UNK - Ambulatory Encounter Lo Gu Titi Kaitlynn Titi Kaitlynn [facility] MUSCLE SPASMEAR PAIN, RIGHTCandidal vaginitisOtitis media, acute - Ambulatory Encounter Satinder Gu [facility] Contact Center UNK - Ambulatory Encounter Fax Status [facility] - Ambulatory Encounter Fax Status [facility] UNK - Ambulatory Encounter Fax Status [facility]Log [facility] UNK - Ambulatory Encounter Bhavya Palacio [facility] UNK - Ambulatory Encounter Edward Whiteabjaimie Delgado [facility] UNK - Ambulatory Encounter Satinder Roldankwuemejose j Boyceuinasir Matthews [facility] Breast abnormal findingsChronic bronchitisBMI 50.0-59.9 - Ambulatory Encounter Comfort Trevino LinkLogic [facility] UNK - Ambulatory Encounter Tiara Christianson MedAdherence [facility] UNK - Ambulatory Encounter Tiara Christianson MedAdherence LinkLogic [facility] UNK - Ambulatory Encounter Bhavya Pedersen MedAdherence [facility] UNK - Ambulatory Encounter Bhavya Pedersen MedAdherence LinkLogic [facility] UNK - Ambulatory Encounter Madhumita Sierra [facility] UNK - Ambulatory Encounter Madhumita Sierra LinkLogic [facility] UNK - Ambulatory Encounter Bhavya Pedersen MedAdherence Stephanie Hernandez [facility] Contact Center UNK - Ambulatory Encounter Madhumita Sierra [facility] UNK - Ambulatory Encounter Madhumita Sierra [facility] UNK - Ambulatory Encounter Madhumita Sierra [facility]Log[facility] UNK - Ambulatory Encounter Nupur Chong [facility] UNK - Ambulatory Encounter Nupur Chong [facility] UNK - Ambulatory Encounter Edwin Umana [facility] UNK - Ambulatory Encounter Edwin Umana Edwin Umana [facility] UNK - Ambulatory Encounter Edwin Umana Edwin Umana [facility] UNK - Ambulatory Encounter Comfort Ma Gamino [facility] MORBID OBESITYOtitis media, acute - Ambulatory Encounter Fabricio Beard [facility] UNK - Ambulatory Encounter Kishanridgekaylin Esquivel [facility] UNK - Ambulatory Encounter Kishanbrooke Esquivel FrancescaTenet St. Louisz [facility] Candidal vaginitis - Ambulatory Encounter Lo Esquivel [facility] UNK - Ambulatory Encounter Breana Rosario [facility] UNK - Ambulatory Encounter Breana Rosario [facility] UNK - Ambulatory Encounter Mary Soriaillo [facility] UNK - Ambulatory Encounter Fabricio Beard [facility] UNK - Ambulatory Encounter Bria Young [facility] UNK - Ambulatory Encounter Janet [facility] UNK - Ambulatory Encounter Fabricio Beard [facility] UNK - Ambulatory Encounter Gita Dewey [facility] UNK - Ambulatory Encounter Comfort Trevino [facility] UNK - Ambulatory Encounter [facility] - [facility]ulatory Encounter Comfort Trevino LinkLogic [facility] UNK - Ambulatory Encounter Carmelina Gu [facility] UNK - Ambulatory Encounter Jan Johnson [facility] UNK - Ambulatory Encounter Fax Status LinkLogic [facility] UNK - Ambulatory Encounter Fax Status LinkLogic [facility] UNK - Ambulatory Encounter Fax Status LinkLogic [facility] UNK - Ambulatory Encounter Deniz Lira [facility] UNK - Ambulatory Encounter [facility] - [facility]ulatory Encounter Comfort Trevino LinkLogic [facility] UNK - Ambulatory Encounter Comfort Trevino [facility] UNK - Ambulatory Encounter Comfort Trevino LinkLogic [facility] UNK - Ambulatory Encounter Fax Status LinkLogic [facility] UNK - Ambulatory Encounter Fax Status LinkLogic [facility] UNK - Ambulatory Encounter Comfort Trevino LinkLogic [facility] UNK - Ambulatory Encounter Fax Status LinkLogic [facility] UNK - Ambulatory Encounter Fax Status LinkLogic [facility] UNK - Ambulatory Encounter Comfort Trevino LinkLogic [facility] UNK - Ambulatory Encounter Comfort Trevino LinkLogic [facility] UNK - Ambulatory Encounter Comfort Trevino LinkLogic [facility] UNK - Ambulatory Encounter Comfort Trevino LinkLogic [facility] UNK - Ambulatory Encounter Kimberly Pedersen MedAdherence Comfort Feldman [facility] UNK - Ambulatory Encounter Kimberly Trevino [facility] UNK - [facility]ulatory Encounter Fax Status LinkLogic [facility] UNK - Ambulatory Encounter Fax Status LinkLogic [facility] UNK - Ambulatory Encounter Fax Status LinkLogic [facility] UNK - Ambulatory Encounter Kimberly Trevino [facility] UNK - Ambulatory Encounter Comfort Trevino [facility] UNK - Ambulatory Encounter Comfort Trevino LinkLogic Kimberly Jorgensen [facility] UNK - Ambulatory Encounter Fax Status LinkLogic [facility] UNK - Ambulatory Encounter Jenny Gaston [facility] UNK - Ambulatory Encounter Fax Status LinkLogic [facility] UNK - Ambulatory Encounter Fax Status LinkLogic [facility] UNK - Ambulatory Encounter Comfort Trevino LinkLogic [facility] UNK - Ambulatory Encounter Kimberly Trevino [facility] UNK - Ambulatory Encounter Comfort Jorgensen [facility] UNK - Ambulatory Encounter Jenny Feldman [facility] UNK - Ambulatory Encounter Gosia Trevino [facility] UNK - Ambulatory Encounter Comfort Mayes [facility] UNK - Ambulatory Encounter Comfort Tellez [facility] CHRONIC OBSTRUCTIVE PULMONARY DISEASE, ACUTE EXACERBATIONCHFSLEEP APNEA - Ambulatory Encounter Gill Villafuerte [facility] UNK - Ambulatory Encounter Fax Status [facility] UNK - Ambulatory Encounter Fax Status [facility] UNK - Ambulatory Encounter Fax Status [facility] UNK - Ambulatory Encounter Fax Status [facility] UNK - Ambulatory Encounter Fax Status [facility] UNK - Ambulatory Encounter Fax Status [facility] UNK - Ambulatory Encounter Fax Status [facility] UNK - Ambulatory Encounter Jenny Feldman [facility] UNK - Ambulatory Encounter Thea Junior Rosalinda [facility] LOW BACK PAIN - Ambulatory Encounter Sabra Mitchell [facility] UNK - Ambulatory Encounter Sabra Mitchell [facility] UNK - Ambulatory Encounter Ernesto Gaffney [facility] DEPENDENT EDEMA, LEGS - Ambulatory Encounter [facility] - [facility]ulatory Encounter [facility] UNK - Ambulatory Encounter [facility] UNK - Ambulatory Encounter [facility] UNK - Ambulatory Encounter [facility] UNK - Ambulatory Encounter [facility] UNK - Ambulatory Encounter [facility] UNK - Ambulatory Encounter Malena Isabel [facility] UNK - Ambulatory Encounter Ernesto Matthews [facility] EAR PAIN, RIGHTBLURRED VISIONHEARING DEFICIT - Ambulatory Encounter Congregational Preload [facility] UNK - Ambulatory Encounter Congregational Preload LinkLogic [facility] UNK - Ambulatory Encounter Congregational Preload LinkLogic [facility] UNK - Ambulatory Encounter Congregational Preload [facility] UNK - Ambulatory Encounter Congregational Preload [facility] UNK - Ambulatory Encounter Congregational Preload [facility] UNK - Ambulatory Encounter Congregational Preload LinkLogic [facility] UNK - Ambulatory Encounter Congregational Preload LinkLogic [facility] UNK - Ambulatory Encounter Congregational Preload LinkLogic [facility] UNK - Ambulatory Encounter Congregational Preload LinkLogic [facility] UNK - Ambulatory Encounter Congregational Preload LinkLogic [facility] UNK - Ambulatory Encounter Congregational Preload LinkLogic [facility] UNK - Ambulatory Encounter Congregational Preload LinkLogic [facility] UNK - Ambulatory Encounter Congregational Preload [facility]Logic [facility] UNK - Ambulatory Encounter Congregational Preload [facility]Logic [facility] UNK - Ambulatory Encounter Congregational Preload [facility]Logic [facility] UNK - Ambulatory Encounter Congregational Preload [facility]Logic [facility] UNK - Ambulatory Encounter Congregational Preload [facility]Logic [facility] UNK - Ambulatory Encounter Congregational Preload [facility]Logic [facility] UNK - Ambulatory Encounter Congregational Preload LinkLogic [facility] UNK - Ambulatory Encounter Congregational Preload LinkLogic [facility] UNK - Ambulatory Encounter Congregational Preload LinkLogic [facility] UNK - Ambulatory Encounter Congregational Preload [facility]Logic [facility] UNK - Ambulatory Encounter Congregational Preload LinkLogic [facility] UNK - Ambulatory Encounter Congregational Preload LinkLogic [facility] UNK - Ambulatory Encounter Congregational Preload [facility]Logic [facility] UNK - Ambulatory Encounter Congregational Preload [facility]Logic [facility] UNK - Ambulatory Encounter Congregational Preload [facility]Logic [facility] UNK - Ambulatory Encounter Congregational Preload [facility]Logic [facility] UNK - Ambulatory Encounter Congregational Preload [facility]Logic [facility] UNK - Ambulatory Encounter Congregational Preload [facility]Logic [facility] UNK - Ambulatory Encounter Congregational Preload [facility]Logic [facility] UNK - Ambulatory Encounter Congregational Preload [facility] UNK - Ambulatory Encounter Congregational Preload [facility]Logic [facility] UNK - Ambulatory Encounter Congregational Preload [facility]Logic [facility] UNK - Ambulatory Encounter Congregational Preload LinkLogic [facility] UNK - Ambulatory Encounter Congregational Preload [facility]Logic [facility] UNK - Ambulatory Encounter Congregational Preload [facility]Logic [facility] UNK - Ambulatory Encounter Congregational Preload [facility]Logic [facility] UNK - Ambulatory Encounter Congregational Preload [facility]Logic [facility] UNK - Ambulatory Encounter Congregational Preload [facility]Logic [facility] UNK - Ambulatory Encounter Congregational Preload [facility]Logic [facility] UNK - Ambulatory Encounter Congregational Preload [facility]Log[facility] UNK - Ambulatory Encounter Congregational Preload LinkLogic [facility] UNK - Ambulatory Encounter Congregational Preload LinkLogic [facility] UNK - Ambulatory Encounter Congregational Preload [facility]Logic [facility] UNK - Ambulatory Encounter Congregational Preload [facility]Logic [facility] UNK - Ambulatory Encounter Congregational Preload [facility]Logic [facility] UNK - Ambulatory Encounter Congregational Preload [facility]Log[facility] UNK - Ambulatory Encounter Congregational Preload [facility] UNK - Ambulatory Encounter Congregational Preload [facility] UNK - Ambulatory Encounter Congregational Preload [facility] UNK - Ambulatory Encounter Congregational Preload [facility] UNK - Ambulatory Encounter Congregational Preload [facility] UNK - Ambulatory Encounter Congregational Preload [facility] UNK - Ambulatory Encounter Congregational Preload [facility] UNK - Ambulatory Encounter Congregational Preload [facility] UNK - Ambulatory Encounter Congregational Preload [facility]Log[facility] UNK - Ambulatory Encounter Congregational Preload [facility]Log[facility] UNK - Ambulatory Encounter Congregational Preload [facility]Log[facility] UNK - Ambulatory Encounter Congregational Preload LinkLogic [facility] UNK - Ambulatory Encounter Congregational Preload LinkLogic [facility] UNK - Ambulatory Encounter Congregational Preload [facility]Log[facility] UNK - Ambulatory Encounter Congregational Preload [facility]Log[facility] UNK - Ambulatory Encounter Congregational Preload [facility]Log[facility] UNK - Ambulatory Encounter Congregational Preload [facility]Log[facility] UNK - Ambulatory Encounter Congregational Preload [facility]Log[facility] UNK - Ambulatory Encounter Congregational Preload [facility] UNK - Ambulatory Encounter Sharpe Gulshan [facility]affney [facility] UNK - Ambulatory Encounter Congregational Preload [facility]Logic [facility] UNK - Ambulatory Encounter Congregational Preload [facility]Log[facility] UNK - Ambulatory Encounter Congregational Preload [facility]Logic [facility] UNK - Ambulatory Encounter Congregational Preload [facility]Logic [facility] UNK - Ambulatory Encounter Congregational Preload [facility]Log[facility] UNK - Ambulatory Encounter Congregational Preload [facility]Log[facility] UNK - Ambulatory Encounter Congregational Preload [facility]Logic [facility] UNK - Ambulatory Encounter Congregational Preload [facility]Logic [facility] UNK - Ambulatory Encounter Congregational Preload [facility]Logic [facility] UNK - Ambulatory Encounter Congregational Preload [facility]Logic [facility] UNK - Ambulatory Encounter Congregational Preload [facility]Logic [facility] UNK - Ambulatory Encounter Congregational Preload [facility]ic [facility] UNK - Ambulatory Encounter Congregational Preload [facility]Logic [facility] UNK - Ambulatory Encounter Congregational Preload [facility]Log[facility] UNK - Ambulatory Encounter Congregational Preload [facility]Logic [facility] UNK - Ambulatory Encounter Congregational Preload [facility]Logic [facility] UNK - Ambulatory Encounter Congregational Preload [facility] UNK - Ambulatory Encounter Congregational Preload [facility] UNK - Ambulatory Encounter Congregational Preload [facility] UNK - Ambulatory Encounter Congregational Preload LinkLogic [facility] UNK - Ambulatory Encounter Congregational Preload [facility] UNK - Ambulatory Encounter Congregational Preload [facility] UNK - Ambulatory Encounter Congregational Preload [facility] UNK - Ambulatory Encounter Congregational Preload LinkLogic [facility] UNK - Ambulatory Encounter Congregational Preload [facility] UNK - Ambulatory Encounter Congregational Preload [facility]Log[facility] UNK - Ambulatory Encounter Congregational Preload [facility] UNK - Ambulatory Encounter Congregational Preload [facility]Log[facility] UNK - Ambulatory Encounter Congregational Preload LinkLogic [facility] UNK - Ambulatory Encounter Congregational Preload LinkLogic [facility] UNK - Ambulatory Encounter Congregational Preload LinkLogic [facility] UNK - Ambulatory Encounter Congregational Preload LinkLogic [facility] UNK - Ambulatory Encounter Congregational Preload [facility]Logic [facility] UNK - Ambulatory Encounter Congregational Preload LinkLogic [facility] UNK - Ambulatory Encounter Congregational Preload [facility] UNK - Ambulatory Encounter Congregational Preload LinkLogic [facility] UNK - Ambulatory Encounter Congregational Preload LinkLogic [facility] UNK - Ambulatory Encounter Congregational Preload LinkLogic [facility] UNK - Ambulatory Encounter Congregational Preload LinkLogic [facility] UNK - Ambulatory Encounter Congregational Preload LinkLogic [facility] UNK - Ambulatory Encounter Congregational Preload LinkLogic [facility] UNK - [facility] - [facility] En[facility] Sharpetaniya Gaffney [facility] UNK - Ambulatory Encounter Gill Villafuerte LinkLogic Annemarie Gaffney [facility] UNK - Ambulatory Encounter Gill Villafuerte Colleen Pacedoris Batistaen Gulshan [facility] UNK - Ambulatory Encounter Gill Dalton [facility] UNK - Ambulatory Encounter Annemarie Pedersen MedAdherence Krystle Alderman [facility] UNK - Ambulatory Encounter Gill Orozco Davialice Orozco Daviyeimisonia [facility] UNK - Ambulatory Encounter Gill Villafuerte Annemarie Batistaluis Gutierrez [facility] COPDNICOTINE ADDICTIONSARCOIDOSISHYPERTENSIONMUSCLE SPASM - Ambulatory Encounter Ernesto Garcia [facility] UNK VITAL SIGNS Date Observation Value Provider method used to obtain blood pressure automatic Francesca M Lebron " Blood Pressure Position 01 sitting Francesca Lebron " blood pressure, site #1 left arm Francesca Ernesto iDana " oxygen saturation, oximetry 95 % Francesca Ernesto Diana " blood pressure, diastolic 83 mm[Hg] Francesca M Lebron " blood pressure, systolic 129 mm[Hg] Francesca M Lebron " respiratory rate E&M 18 /min Francesca M Lebron " pulse rate E&M 99 /min Jamarkwlinda Roa Nnabuife " temperature site oral Francesca M Lebron " temperature E&M 98.0 [degF] Francesca M Lebron " weight E&M 326.20 lbs. Francesca M Lebron " weight in kilograms E&M 148.27 kg Francesca M Lebron " height in centimeters E&M 154.94 cm Francesca Orozco Lebron " height E&M 61 [in_i] Francesca [...] M Lebron " temperature site oral Francesca Diana " temperature E&M 98.4 [degF] Francesca Diana " weight E&M 321.80 lbs. Francesca Diana " weight in kilograms E&M 146.27 kg Francesca Diana " height in centimeters E&M 154.94 cm Francesca Diana " height E&M 61 [in_i] Francesca Diana oxygen saturation, oximetry 94 % Nupur [...] Isabel " blood pressure, systolic 128 mm[Hg] Jamarkwuekathya Roa Nnabuife " respiratory rate E&M 17 /min Stephanie [...] Hafsa Will " weight E&M 329.38 lbs. Hafsarenard OrellanaWill " weight in kilograms E&M 149.72 kg Hafsarenard OrellanaWill " height E&M 61 [in_i] Hafsarenard OrellanaWill " height in centimeters E&M 154.94 cm Hafsa Orellanaendez oxygen saturation, oximetry 92 % Priya Mars " blood pressure, diastolic 96 mm[Hg] Priya Jerad " blood pressure, systolic 129 mm[Hg] Priya Jerad " respiratory rate E&M 16 /min Priya Jerad " pulse rate E&M 109 /min Priya Jerad " temperature E&M 98.9 [degF] Priya Jack " weight E&M 329 lbs. Priya Mars " weight in kilograms E&M 149.55 kg Priya Mars " method used to obtain blood pressure automatic Priya Mars " Blood Pressure Position 01 sitting Priya Mars " blood pressure, site #1 left arm Priya Jerad " temperature site oral Priya Jack " height E&M 61 [in_i] Priya Jack " height in centimeters E&M 154.94 cm [...] Alayna Chapman " temperature E&M 98.6 [degF] Alayan Chapman " weight E&M 325.80 lbs. Alayna [...] weight in kilograms E&M 140.27 kg Taina Riccardo " height in centimeters E&M 154.94 cm Taina Gu " height E&M 61 [in_i] Taina Gu oxygen saturation, oximetry 86 % Taina Gu " method used to obtain blood pressure automatic Tainakaylin Gu " Blood Pressure Position 01 sitting Taina Gu " blood pressure, site #1 left arm Taina Riccardo " blood pressure, diastolic 81 mm[Hg] Taina Gu " blood pressure, systolic 162 mm[Hg] Tainakaylin Gu " respiratory rate E&M 22 /min [...] " blood pressure, systolic 112 mm[Hg] Francesca Stevenson " respiratory rate E&M 17 /min Francesca Gamino " pulse rate E&M 93 /min Francesca Gamino " temperature E&M 98.3 [degF] Francesca Gamino " method used to obtain blood pressure automatic Francesca Gamino " Blood Pressure Position 01 sitting Francesca Gamino " blood pressure, site #1 right arm Francesca Gamino " temperature site oral Francesca Stevenson " weight E&M 274.38 lbs. Francescalloyd Gamino " weight in kilograms E&M 124.72 kg Francesca Gamino " height E&M 61 [in_i] Francesca Parkerrez " height in centimeters E&M 154.94 cm Francesca Hammondsierrez oxygen saturation, oximetry 96 % Francesca Parkerrez " blood pressure, diastolic 82 mm[Hg] Francesca Hammondsierrez " blood pressure, systolic 124 mm[Hg] Francesca Gamino " respiratory rate E&M 17 /min Francesca Hammondsierrez " pulse rate E&M 89 /min Francesca Hammondsierrez " temperature E&M 98.4 [degF] Francesca Gamino " method used to obtain blood pressure manual Francesca Gamino " Blood Pressure Position 01 sitting Francesca Hammondsierrez " blood pressure, site #1 right arm Francesca Gamino " temperature site oral Francesca Parkerrez " weight E&M 287.38 lbs. Francesca Parkerrez " weight in kilograms E&M 130.63 kg Francesca Parkerrez " height E&M 61 [in_i] Francesca Parkerrez " height in centimeters E&M 154.94 cm Francesca Hammondsierrez method used to obtain blood pressure manual [...] " Blood Pressure Position 01 sitting Colleen Gaspars " blood pressure, site #1 left arm Colleen Gaspars " blood pressure, diastolic 88 mm[Hg] Colleen Pace " blood pressure, systolic 120 mm[Hg] Colleen Pace " pulse rate E&M 100 /min Colleen Gaspars " temperature E&M 99.9 [degF] Colleen Pace " weight E&M 273.25 lbs. Colleenkaylin Gaspars " weight in kilograms E&M 124.20 kg Colleen Gaspars " height E&M 61 [in_i] Colleenkaylin Gaspars " height in centimeters E&M 154.94 cm [...] method used to obtain blood pressure manual Honeytejas Gutierrez " Blood Pressure Position 01 sitting [...] % of total hemoglobin 8.2 % Edward Whiteabuife alanine aminotransferase (SGPT), serum 50 1/L [employer] [...] 3.4-10.8 High blood glucose, random 256 mg/dL [facility] " hemoglobin A1C, blood, as % of total hemoglobin 8.3 % Edward Delgado hematocrit, blood 37.6 % Kayla Lipscomb " [...] 1 by mouth twice a day Edward Boyceuinasir ERYTHROMYCIN 5 MG/GM OPHTHALMIC OINTMENT apply 1 [...] 1 TABLET BY MOUTH TWICE DAILY [facility]ara [facility] MUCINEX 600 MG ORAL TABLET EXTENDED RELEASE 12 HOUR take 1 tablet twice a day Edward Delgado TESSALON PERLES 100 MG ORAL CAPSULE 1 by mouth 3 times a day as needed for cough Edward Delgado CONTRAVE 8-90 MG ORAL TABLET EXTENDED RELEASE 12 HOUR 1 tab in the am x 1 week, then 1 tab Twice a Day x 1 week , then 2 tab in the am and 1 tab in the pm x1 week, then 2 tab twice a day Edward Delgado METFORMIN 500MG TAB TAKE 1 TABLET BY MOUTH ONCE DAILY [facility] FREESTYLE LANCETS Use as directed to test blood sugar once daily [facility] ICD CODE E11.9 FREESTYLE LITE TEST IN VITRO STRIP Use as directed to test blood sugar once daily [facility] ICD CODE E11.9 FREESTYLE FREEDOM LITE W/DEVICE KIT Use as directed to test blood sugar once daily [facility] ICD CODE E11.9 BD ULTRA-FINE MICRO PEN NEEDLE 32G X 6 MM use as instructed with kwik pen Edward Delgado PANTOPRAZOLE SOD 40MG TAB TAKE 1 TABLET BY MOUTH ONCE DAILY Tiara Christianson [employer] [facility] HUMALOG MIX 75/25 KWIKPEN (75-25) 100 UNIT/ML SUBCUTANEOUS SUSPENSION PEN-INJECT INJECT 50 UNITS SUB-Q 15 MINUTES BEFORE BREAKFAST AND 26 UNITS 15 MINUTES BEFORE DINNER DAILY Katy CisnerosAdherfhaeem, AZITHROMYCIN 250 MG ORAL TABLET 2 tablets [...] a Day to administer insulin Tiara Christianson [facility] Updated directions IPRATROPIUM/ ALBUTER EMI USE 1 AMPULE IN NEBULIZER EVERY 4 HOURS NEEDED FOR WHEEZING Tiara Property MooseAdhermercyone [facility] rehabilitation hospital AZITHROMYCIN 250 MG ORAL TABLET 2 tablets [...] a total of 5 days - Comfort Gabler SPIRIVA HANDIHALER 18 MCG INHALATION CAPSULE Inhale [...] history E&M Single. Not homeless. Born in [facility]. City: [facility]. State: [place]. Not employed. Retired. Highest education level: high school graduate. Gender of partner(s): male. Francesca Diana " social history reviewed E&M reviewed today Francesca Diana " assessment of health literacy ([facility] 2014 Standards, 3C10) Adequate Francesca Diana " passive cigarette smoke exposure Yes Francesca Diana " smoking status former smoker Francesca Diana " Exercise Program Referral T Francesca Diana " Weight Management Counseling Provided T Francesca Diana " Nutrition intervention Miguel A Diana time of call 07/18/2019 2:19 PM Eusebia Gagnon social history E&M Single. Not homeless. Born in [facility]. City: [facility]. State: [place]. Not employed. Retired. Highest education level: high school graduate. Gender of partner(s): male. Francesca Diana " social history reviewed E&M reviewed today Francesca Diana " assessment of health literacy ([facility] 2014 Standards, 3C10) Adequate Francesca Diana " passive cigarette smoke exposure Yes Francesca Diana " smoking status former smoker Francesca Diana " Exercise Program Referral T Francesca Diana " Weight Management Counseling Provided T Francesca Diana " Nutrition intervention Miguel A Diana Exercise Program Referral Miguel A Harman " Weight Management Counseling Provided Miguel A Harman " Nutrition intervention Miguel A Harman drug use, illicit Never Nupur Chong " alcohol use Currently Nupur Chong " social history E&M Single. Not homeless. Born in [facility]. City: [facility]. State: [place]. Not employed. Retired. Highest education level: high school graduate. Gender of partner(s): male. Nupur Chong " social history reviewed E&M reviewed today Nupur Chong " assessment of health literacy ([facility] 2014 Standards, 3C10) Adequate Nupur Chong " passive cigarette smoke exposure Yes Nupur Chong " smoking status former smoker Nupur Chong time of call 04/02/2019 8:30 AM Daphney Espitia drug use, illicit Never Stephanie Isabel " alcohol use Currently Stephanie Isabel " social history E&M Single. Not homeless. Born in [facility]. City: [facility]. State: [place]. Not employed. Retired. Highest education level: high school graduate. Gender of partner(s): male. Stephanie Isabel " social history reviewed E&M reviewed today Stephanie Isabel " assessment of health literacy ([facility] 2014 Standards, 3C10) Adequate Stephanie Chalo " passive cigarette smoke exposure Yes Stephanie Isabel " smoking status former smoker Stephanie Isabel " Exercise Program Referral T Stephanie Isabel " Weight Management Counseling Provided T Stephanie Isabel " Nutrition intervention Miguel A Isabel sunscreen use No Chukwuemeka Gnosticism Nnabuife " Exercise Program Referral T Edward Roa Nnabuife " Weight Management Counseling Provided T Edward Magañaian Nnabuife " Nutrition intervention T Chukwuekathya Gnosticism Nnabuife " drug use, illicit Never Nupur Chong " alcohol use Currently Nupur Chong " social history E&M Single. Not homeless. Born in [facility]. City: [facility]. State: [place]. Not employed. Retired. Highest education level: high school graduate. Gender of partner(s): male. Nupur Chong " social history reviewed E&M reviewed today Nupur Chong " assessment of health literacy ([facility] 2014 Standards, 3C10) Adequate Nupur Chong " passive cigarette smoke exposure No Nupur Chong " smoking status former smoker Nupur Chong time of call 01/09/2019 11:02 AM Eusebia Gagnon time of call 01/08/2019 8:58 AM Alayna Gu Exercise Program Referral Miguel A Harman " Weight Management Counseling Provided Miguel A Harman " Nutrition intervention MiguelA Harman " drug use, illicit Never Nupur Chong " alcohol use Currently Nupur Chong " social history E&M Single. Not homeless. Born in [facility]. City: [facility]. State: [place]. Not employed. Retired. Highest education level: high school graduate. Gender of partner(s): male. Nupur Chong " social history reviewed E&M reviewed today Nupur Chong " assessment of health literacy ([facility] 2014 Standards, 3C10) Adequate Nupur Chong " passive cigarette smoke exposure No Nupur Chong " smoking status former smoker Nupur Chong time of call 11/21/2018 9:45 AM Joaquim Engel drug use, illicit Never Stephanie Chalo " alcohol use Currently Stephanie Chalo " social history E&M Single. Not homeless. Born in [facility]. City: [facility]. State: [place]. Not employed. Retired. Highest education level: high school graduate. Gender of partner(s): male. Stephanie Chalo " social history reviewed E&M reviewed today Stephanie Chalo " assessment of health literacy ([facility] 2014 Standards, 3C10) Adequate Stephanie Chalo " is there any chance that you could be ? No Stephanie Chalo " passive cigarette smoke exposure No Stephanie Chalo " smoking status former smoker Stephanie Chalo " Exercise Program Referral T Stephanie Chalo " Weight Management Counseling Provided T Stephanie Chalo " Nutrition intervention T Stephanie Isabel time of call 08/07/2018 1:51 PM Clementine Velasquez drug use, illicit Never Hafsa Will " alcohol use Currently Hafsa Will " social history E&M Single. Not homeless. Born in [facility]. City: [facility]. State: [place]. Not employed. Retired. Highest education level: high school graduate. Gender of partner(s): male. Hafsa Will " social history reviewed E&M reviewed today Hafsa Will " assessment of health literacy ([facility] 2014 Standards, 3C10) Adequate Hafsa Will [...] history E&M Single. Not homeless. Born in [facility]. City: [facility]. State: [place]. Not employed. Retired. Highest education level: high school graduate. Gender of partner(s): male. Violette Pool " social history reviewed E&M reviewed today Violette Pool " assessment of health literacy ([facility] 2014 Standards, 3C10) Adequate Violette Pool " passive cigarette smoke exposure No Violette Pool " smoking status former smoker Violette Pool alcohol use Currently Hafsa Will " drug use, illicit Never Hafsa Will " social history E&M Single. Not homeless. Born in [facility]. City: [facility]. State: [place]. Not employed. Retired. Highest education level: high school graduate. Gender of partner(s): male. Hafsa Suman " social history reviewed E&M reviewed today Hafsa Will " assessment of health literacy ([facility] 2014 Standards, 3C10) Adequate Hafsa Will [...] history E&M Single. Not homeless. Born in [facility]. City: [facility]. State: [place]. Not employed. Retired. Highest education level: high school graduate. Gender of partner(s): male. Priya Jerad " social history reviewed E&M reviewed today Priya Jerad " assessment of health literacy ([facility] 2014 Standards, 3C10) Adequate Priya Jerad [...] Raysa Potts Exercise Program Referral T Edward Delgado " Weight Management Counseling Provided T Edward Delgado " Nutrition intervention T Edward Boyceuinasir " social history E&M Single. Not homeless. Born in [facility]. City: [facility]. State: [place]. Not employed. Retired. Highest education level: high school graduate. Gender of partner(s): male. Alayna Chapman " social history reviewed E&M reviewed today Alayna Chapman " assessment of health literacy ([facility] 2014 Standards, 3C10) Adequate Alayna Chapman " passive cigarette smoke exposure Yes Alayna Chapman " smoking status former smoker Alayna Chapman time of call 04/24/2018 11:41 AM Gayle Serrano drug use, illicit Never Stephanie Isabel " alcohol use Currently Stephanie Chalo " social history E&M Single. Not homeless. Born in [facility]. City: [facility]. State: [place]. Not employed. Retired. Highest education level: high school graduate. Gender of partner(s): male. Stephanie Isabel " social history reviewed E&M reviewed today Stephanie Isabel " assessment of health literacy ([facility] 2014 Standards, 3C10) Adequate Stephanie Chalo " [...] history E&M Single. Not homeless. Born in [facility]. City: [facility]. State: [place]. Not employed. Retired. Highest education level: high school graduate. Gender of partner(s): male. Alayna Chapman " social history reviewed E&M reviewed today Alayna Chapman " assessment of health literacy ([facility] 2014 Standards, 3C10) Adequate Alayna Chapman " passive cigarette smoke exposure No Alayna Chapman " smoking status former smoker Alayna Chapman " Exercise Program Referral T Alayna Chapman " Weight Management Counseling Provided T Alayna Chapman " Nutrition intervention T Alayna Chapman Exercise Program Referral T Chukkavin Delgado " Weight Management Counseling Provided T Edward Delgado " Nutrition intervention T Edward Delgado " alcohol use Currently Alayna Chapman " social history E&M Single. Not homeless. Born in [facility]. City: [facility]. State: [place]. Not employed. Retired. Highest education level: high school graduate. Gender of partner(s): male. Alayna Chapman " social history reviewed E&M reviewed today Alayna Chapman " assessment of health literacy ([facility] 2014 Standards, 3C10) Adequate Alayna Chapman " passive cigarette smoke exposure No Alayna Chapman " smoking status former smoker Alayna Chapman " assessment of health literacy ([facility] 2014 Standards, 3C10) Adequate Alayna Chapman " drug use, illicit Never Alayna Chapman " alcohol use Currently Alayna Chapman " social history E&M Single. Not homeless. Born in [facility]. City: [facility]. State: [place]. Not employed. Retired. Highest education level: high [...] history E&M Single. Not homeless. Born in [facility]. City: [facility]. State: [place]. Not employed. Retired. Highest education level: high [...] history E&M Single. Not homeless. Born in [facility]. City: [facility]. State: [place]. Not employed. Retired. Highest education level: high [...] Ana M Palacio Exercise Program Referral T Jamarrameshjose j Gnosticism Danny " Weight Management Counseling Provided T Abisaijose j Crispin Delgado " Nutrition intervention T Jamaremilykathya Gnosticism Austenuinasir " social history E&M Single. Not homeless. Born in [facility]. City: [facility]. State: [place]. Not employed. Retired. Highest education level: high school graduate. Gender of partner(s): male. Edwadr Roa Danny " social history reviewed E&M reviewed today Edward Roa Danny " drug use, illicit Never Nupur Chong " alcohol use Currently Nupur Chong " passive cigarette smoke exposure Yes Nupur Chong " smoking status former smoker Nupur Chong time of call 09/02/2017 9:48 AM Donnamichael Landis sunscreen use No Edward Roa Cindyuinasir " social history E&M Single. Not homeless. Born in [facility]. City: [facility]. State: [place]. Not employed. Retired. Highest education level: high school graduate. Gender of partner(s): male. Edward Roa Danny " social history reviewed E&M reviewed today Edward Gnosticism Danny " passive cigarette smoke exposure Yes Taina Riccardo " smoking status former smoker Taina Gu time of call 08/11/2017 8:56 AM Donnamichael Landis Exercise Program Referral T Titicleveland Calderón " Weight Management Counseling Provided T Titicleveland Calderón " Nutrition intervention T Titi Kaitlynn " passive cigarette smoke exposure No Tainakaylin Gu " smoking status former smoker Taina Riccardo time of call 07/21/2017 4:25 PM Alayna Gu social history E&M Single. Not homeless. Born in [facility]. City: [facility]. State: [place]. Not employed. Retired. Highest education level: high school graduate. Gender of partner(s): male. Edward Gnosticism Austenuinasir " social history reviewed E&M reviewed today Gautamkavin Crispin Delgado " Exercise Program Referral T Abisaijose j Crispin Boyceuinasir " Weight Management Counseling Provided T Edward Boyceuinasir " Nutrition intervention Miguel A Jamarodilia Gnosticism Cindyabuinasir time of call 07/08/2017 10:03 AM Ana [...] history E&M Single. Not homeless. Born in [facility]. City: [facility]. State: [place]. Not employed. Retired. Highest education level: high [...] time of call 04/13/2013 4:36 PM Krystle social history reviewed E&M reviewed today Honey Gutierrez " social history E&M Single. Not homeless. Born in [facility]. City: [facility]. State: [place]. Not employed. Retired. Highest education level: high school graduate. Gender of partner(s): male. Honey Harringtonoy " drug use, illicit Never Honeytejas Gutierrez " alcohol use Never Honeytejas Gutierrez " Occupation #1 Retired Honeytejas Gutierrez " patient considered to be homeless No Honey Gutierrez " passive cigarette smoke exposure Yes Honey Gutierrez " cigarettes, number smoked per day 1 pack Honey Gutierrez " smoking status current every day smoker Honey Gutierrez FUNCTIONAL STATUS Date Observation Value Provider total score, Activities of Daily Living (ADL) Independent Edward Fraga Activities of Daily Living (ADLs, IADLs, etc.) [...] E&M oriented to time, place, and person [facility] " assessment of mood and affect E&M no depression, anxiety, or agitation [facility] Gnostic[facility] Nnabui " Generalized Anxiety Disorder Questionnaire - Question 2 0 Francesca Orozco Lebron " Generalized Anxiety Disorder Questionnaire - Question 1 0 Francesca Orozco Lebron assessment of judgment and insight E&M intact Edward Gnosticism Nnabui " assessment of mood and affect E&M no depression, anxiety, or agitation [facility] Nn[facility] " mental status examination: orientation E&M oriented to time, place, and person Chulinda Gnosticism Nnabui " Generalized Anxiety Disorder Questionnaire - Question 2 0 Nupur Chong " Generalized Anxiety Disorder Questionnaire - Question 1 0 Nupur Chong assessment of judgment and insight E&M intact Edward Gnosticism Nnabui " mental status examination: orientation E&M oriented to time, place, and person [facility]ostic[facility] " assessment of mood and affect E&M no depression, anxiety, or agitation [facility] Gnosticism [facility] " Generalized Anxiety Disorder Questionnaire - Question 2 0 Stephanie Isabel " Generalized Anxiety Disorder Questionnaire - Question 1 0 Stephanie Isabel assessment of judgment and insight E&M intact Edward Gnosticism Nnabui " mental status examination: orientation E&M oriented to time, place, and person [facility] N[facility] " assessment of mood and affect E&M anxious, depressed mood [facility] Gnostic[facility] Nnabui " Generalized Anxiety Disorder Questionnaire - [...] of judgment and insight E&M intact Chuodilia [facility] " mental status examination: orientation E&M oriented to time, place, and person [facility] " assessment of mood and affect E&M anxious, depressed mood [facility] Hospital[facility]abi[facility]vajose j [facility] " Generalized Anxiety Disorder Questionnaire - Question 2 0 Stephanie Isabel " Generalized Anxiety Disorder Questionnaire - Question 1 0 Stephanie Isabel assessment of judgment and insight E&M intact [facility] " mental status examination: orientation E&M oriented to time, place, and person [facility] " assessment of mood and affect E&M anxious, depressed mood [facility] mental status examination: orientation E&M alert and oriented Tiny Mckeon " assessment of mood and affect E&M normal affect Tiny Tracyuna Generalized Anxiety Disorder Questionnaire - Question 2 0 Hafsa Will " Generalized Anxiety Disorder Questionnaire - Question 1 0 Hafsa Will Generalized Anxiety Disorder Questionnaire - Question 2 0 Violette Welch " Generalized Anxiety Disorder Questionnaire - Question 1 0 Violette Welch assessment of judgment and insight E&M intact [facility] " mental status examination: orientation E&M oriented to time, place, and person [facility] " assessment of mood and affect E&M anxious, depressed mood [facility] Gnosticism abui assessment of judgment and insight E&M intact [facility] " mental status examination: orientation E&M oriented to time, place, and person [facility] " assessment of mood and affect E&M anxious, depressed mood [facility]ose j [facility] " Generalized Anxiety Disorder Questionnaire - Question 2 0 Priya Mars " Generalized Anxiety Disorder Questionnaire - Question 1 0 Priya Mars assessment of judgment and insight E&M intact [facility] " mental status examination: orientation E&M oriented to time, place, and person [facility] j [facility] " assessment of mood and affect E&M anxious, depressed mood [facility]inda Gnosticism [facility] " Generalized Anxiety Disorder Questionnaire - Question 2 0 Alayna Chapman " Generalized Anxiety Disorder Questionnaire - Question 1 0 Alayna Chapman assessment of judgment and insight E&M intact Edward Gnosticism [facility] " mental status examination: orientation E&M oriented to time, place, and person [facility] Gnosticism abui " assessment of mood and affect E&M anxious, depressed mood Chulinda Gnosticism Nnabui " Generalized Anxiety Disorder Questionnaire - Question 2 0 Stephanie Isabel " Generalized Anxiety Disorder Questionnaire - Question 1 0 Stephanie Isabel assessment of judgment and insight E&M intact Edward Gnosticism [facility] " mental status examination: orientation E&M oriented to time, place, and person [facility] Gnosticism abui " assessment of mood and affect E&M anxious, depressed mood [facility] Gnosticism [facility] " Generalized Anxiety Disorder Questionnaire - Question 2 0 Alayna Chapman " Generalized Anxiety Disorder Questionnaire - Question 1 0 Alayna Chapman assessment of judgment and insight E&M intact [facility] " mental status examination: orientation E&M oriented to time, place, and person [facility] Gnosticism abui " assessment of mood and affect E&M anxious, depressed mood [facility] Gnosticism [facility] " Generalized Anxiety Disorder Questionnaire - Question 2 0 Alayna Chapman " Generalized Anxiety Disorder Questionnaire - Question 1 0 Alayna Chapman assessment of judgment and insight E&M intact Edward Gnosticism [facility] " mental status examination: orientation E&M oriented to time, place, and person [facility]ose j Gnosticism abui " assessment of mood and affect E&M anxious, depressed mood [facility] Gnosticism Nnabui " Generalized Anxiety Disorder Questionnaire - [...] process able to abstract, goal-directed, logical Tomaronald Woods " mental status assessment, sensorium alert, [...] mood and affect E&M anxious, depressed mood [facility] Crispin Delgado " assessment of judgment and insight E&M intact Bryanvajose j Delgado " mental status examination: orientation E&M oriented to time, place, and person Edward Delgado " If any problems checked, how difficult [...] assessment of judgment and insight E&M intact [facility] claremorejose j Magañaian Nnabuife " mental status examination: orientation E&M oriented to time, place, and person [facility] " assessment of mood and affect E&M no depression, anxiety, or agitation ChuHunt [facility] Hospitalian Nnabuife " Generalized Anxiety Disorder Questionnaire - Question 2 0 Stephanie Isabel " Generalized Anxiety Disorder Questionnaire - Question 1 0 Stephanie Isabel Generalized Anxiety Disorder Questionnaire - Question 2 0 Nupur Chong " Generalized Anxiety Disorder Questionnaire - Question 1 0 Nupur Chong mental status examination: recall E&M intact for recent and remote events [facility] claremorejose j Gnosticism Nnabuife " assessment of judgment and insight E&M intact [facility] claremorejose j Gnosticism Nnabuife " mental status examination: orientation E&M oriented to time, place, and person [facility] Hospitalian Nn[place]uife " assessment of mood and affect E&M no depression, anxiety, or agitation [facility] Nnabuife " Generalized Anxiety Disorder Questionnaire - [...] E&M intact for recent and remote events [facility] [place] " mental status examination: orientation E&M oriented to time, place, and person [facility] [place] " assessment of judgment and insight E&M intact [facility] [place] " assessment of mood and affect E&M no depression, anxiety, or agitation [facility] [place] " Generalized Anxiety Disorder Questionnaire - Question 2 0 Taina Gu " Generalized Anxiety Disorder Questionnaire - Question 1 0 Taina Gu Generalized Anxiety Disorder Questionnaire - Question 2 0 Francesca Gamino " Generalized Anxiety Disorder Questionnaire - Question 1 0 Francesca Brownz assessment of judgment and insight E&M intact Lo Esquivel " assessment of mood and affect E&M no depression, anxiety, or agitation Lo Esquivel " If any problems checked, how difficult have these problems made it for you to do your work, take care of things at home, or get along with other people (GAD7, question 8) 0 Francesca Parkerrez " Generalized Anxiety Disorder Questionnaire - Question 7 3 Francesca Gamino " Generalized Anxiety Disorder Questionnaire - Question 6 3 Francesca Gamino " Generalized Anxiety Disorder Questionnaire - Question 5 0 Francesca Gamino " Generalized Anxiety Disorder Questionnaire - Question 4 3 Francescalloyd Parkerrez " Generalized Anxiety Disorder Questionnaire - Question 3 0 Francescalloyd Gamino " Generalized Anxiety Disorder Questionnaire - Question 2 0 Francescalloyd Gamino " Generalized Anxiety Disorder Questionnaire - [...] Disorder Questionnaire - Question 1 0 Colleen Gaspars MEDICAL EQUIPMENT No Information Available FAMILY HISTORY No Information Available INSURANCE PROVIDERS Payer name Policy type / Coverage type Covered libertarian ID [employer] Medicare HMO Medicare HMO [id number] ADVANCE DIRECTIVES No Information Available TREATMENT PLAN [...] - - Est Patient Exp Problem - 42869 Finger Stick Glucose Est Patient Exp Problem - 84795 Est Patient Exp Problem - 10646 Est Patient Detailed - 97643 New Patient Intermediate Opth - 65115 Finger Stick Glucose Ear Irrigation Est Patient Exp Problem - 63877 Est Patient Exp Problem - 22993 Retinal Screening Est Patient Well Exam (40 - 64 Yrs) - 94895 Est Patient Detailed - 24717 Est Patient Exp Problem - 84596 Est Patient Exp Problem - 03532 New Patient Comprehensive - 88867 Glucose Stick Est Patient Exp Problem - 49908 Glucose Stick Est Patient Exp Problem - 81968 Prescription Assistance (Non-HIV) Glucose Stick Est Patient Exp Problem - 61737 [place] [facility] [place] Est Patient Exp Problem - 47465 Est Patient Detailed - 96528 Est Patient Exp Problem - 68129 Est Patient Detailed - 94384 IB Assessment - Hot Blaster Diagnostic evaluation (no medical) - 11926 Integrated Behavioral Health Assessment (IB) Est Patient Exp Problem - 66107 Est Patient Detailed - 05463 Ofc Vst, Est Level V Est Patient Exp Problem - 18956 Est Patient Exp Problem - 55838 Ofc Vst, Est Level IV Est Patient Exp Problem - 58090 Ofc Vst, Est Level V Est Patient Exp Problem - 29946 Est Patient Detailed - 20767 Est Patient Detailed - 91541 ALBUTEROL INHAL ADMIN THRU DME 1MG Est Patient Detailed - 58775 Est Patient Exp Problem - 78558 Est Patient Exp Problem - 33555 Ear Irrigation Est Patient Exp Problem - 34958 Ofc Vst, Est Level III Est Patient Exp Problem - 12923 HISTORY OF PROCEDURES Procedure Date Procedure Name Provider Procedure Notes Status Finger Stick Glucose Gill Villafuerte completed New Patient Intermediate Opth - 14285 Satinder Harman completed Finger Stick Glucose Satinder Harman completed Ear Irrigation Satinder Harman completed Glucose Stick Gill Villafuerte completed Glucose Stick Satinder Ghazal completed Glucose Stick Gill Villafuerte completed HEMOGLOBIN A1C - In House Comfort Trevino completed [facility] Assessment - Hot Blaster Toma Woods completed Diagnostic evaluation (no medical) - 45353 Toma Woods completed ALBUTEROL INHAL ADMIN THRU DME 1MG Deniz Brown completed Ear Irrigation Thea Junior completed GOALS No Information Available HEALTH CONCERNS No Information Available
--- OUTSIDE RECORDS SUMMARY | 2019-09-25 17:46 | XMS REPORT ---
Author Author Admin, Osmond Organization Unknown Address Unknown Phone Unavailable PROBLEMS Condition Status Date Provider Notes Constipation, drug induced active Edward Roa Nnabuife Hordeolum, internal active Edward Roa Nnabuife Hypokalemia, mild active Edward Roa Nnabuife Chronic pain syndrome active Edward Roa Nnabuife Cerumen impaction, bilateral active Edward Roa Nnabuife Well woman exam active Edward Roa Nnabuife BMI 50.0-59.9 active Edward Magañaian Nnabuife BMI 60.0-69.9, adult completed - Edward [...] active Toma Woods Suicidal ideation active Edward Boyceuinsair Depression, major active Edward Whiteabuife COPD with exacerbation active Edward Boyceuife BMI 50.0-59.9 completed - Tiny Vazquez Mckeon Chronic bronchitis active Edward Whiteabuife Breast abnormal findings active Edward Whiteabuife Otitis media, acute completed - Titi Calderón MORBID OBESITY active Edwin Umana Candidal vaginitis completed - Titi Calderón SLEEP APNEA active Comfort Trevino CHF active Comfort Trevino CHRONIC OBSTRUCTIVE PULMONARY DISEASE, ACUTE EXACERBATION completed - Comfort Trevino LOW BACK PAIN active Thea Puppala DEPENDENT EDEMA, LEGS active Annemarie Gaffney HEARING DEFICIT active Baljinderniesha Isabel BLURRED VISION active Baljinderniesha Isabel EAR PAIN, RIGHT completed - Titicleveland Calderón MUSCLE SPASM completed - Titicleveland Calderón HYPERTENSION active Gill Villafuerte SARCOIDOSIS active Gill Villafuerte NICOTINE ADDICTION active Sharpe Vo COPD active Sharpe Vo ENCOUNTERS Date Type Provider Location Encounter Diagnosis - Ambulatory Encounter Edward Boyceuinasir [facility] UNK - Ambulatory Encounter Edward Delgado [facility] UNK - Ambulatory Encounter Edward Roa Nnabjaimie [facility] UNK - Ambulatory Encounter Gill Roa Nnabuife Edward Roa Nnabuife Sheryl Odonnell [facility] Constipation, drug induced - Ambulatory Encounter Edward Roa Nnabuinasir Roa Nnabuife Bronson Marroquin MedAdherence, [facility] UNK - Ambulatory Encounter Edward Roa Nnabuife Danay Langley MedAdherence [facility] UNK - Ambulatory Encounter Violette Yuri Latricia [facility] UNK - Ambulatory Encounter Edward Whiteabjaimie [facility] UNK - Ambulatory Encounter LSJ Lab Support Desktop LinkLogic Edward Whiteabuinasir [facility] UNK - Ambulatory Encounter Fax Status LinkLogic [facility] UNK - Ambulatory Encounter Fax Status LinkLogic [facility] UNK - Ambulatory Encounter Fax Status [facility] - Ambulatory Encounter Edward Roa Nnabuinasir Roa Nnabuife [facility] UNK - Ambulatory Encounter Edward Roa Nnabuinasir Leon Uatsdin Nnabuife [facility] UNK - Ambulatory Encounter Edward Uatsdin N[place] Jamarkwlinda Uatsdin N[place] [facility] UNK - Ambulatory Encounter Satinder Roa Nnabuife Edward Whiteabuinasir Wagonerz [facility] Stephandeolum, internal - Ambulatory Encounter Comfort Marroquin MedAdherence, [facility] UNK - Ambulatory Encounter Comfort Langley [facility] UNK - Ambulatory Encounter Kimberly Gagnon [place] UNK - Ambulatory Encounter Gill Marroquin MedAdherence, [facility] UNK - Ambulatory Encounter Edward Whiteabuinasir Roldankwuekathya Uatsdin N[place]uife [facility] UNK - Ambulatory Encounter Edward Whiteabuinasir Roldankwuekathya Uatsdin N[place]ife [facility] UNK - Ambulatory Encounter Gill Florezwuemejose j Roa Nnabuinasir Florezwuekathya Roa Nnabuinasir Diana [facility] UNK - Ambulatory Encounter Comfort Ellsworth [facility], [facility] UNK - Ambulatory Encounter Comfort Marroquin MedAdherence, [facility] UNK - Ambulatory Encounter Edward Roa Nnabuinasir Roa Nnabuife LinkLogic [facility] UNK - Ambulatory Encounter Comfort [facility] - Ambulatory Encounter Fax Status LinkLogic [facility] UNK - Ambulatory Encounter Fax Status LinkLogic [facility] UNK - Ambulatory Encounter Fax Status LinkLogic [facility] UNK - Ambulatory Encounter Edward Whiteabuinasir Roa Nnabuife LinkLogic [facility] UNK - Ambulatory Encounter Satinder Roa Nnabuife Edward Roa Nnabuife [facility] Hypokalemia, mild - Ambulatory Encounter Edward Roa Nnabuife Edward Roa Nnabuife [facility] UNK - Ambulatory Encounter LSJ Lab Support Desktop LinkLogic Edward Roa Nnabuife Edward Roa Nnabuife [facility] UNK - Ambulatory Encounter Fax Status LinkLogic [facility] UNK - Ambulatory Encounter Fax Status LinkLogic [facility] UNK - Ambulatory Encounter Fax Status LinkLogic [facility] UNK - Ambulatory Encounter Fax Status LinkLogic [facility] UNK - Ambulatory Encounter Edward Roa Nnabuife Edward oRa Nnabuife [facility] UNK - Ambulatory Encounter Edward Uatsdin Nnabuife Edward Uatsdin Nnabuife [facility] UNK - Ambulatory Encounter Edward Uatsdin Nnabuife Edward Uatsdin Nnabuife [facility] UNK - Ambulatory Encounter Satinder Leon Uatsdin N[place]uife Edward Uatsdin Nnabuife Sheryl Odonnell [facility] UNK - Ambulatory Encounter Comfort Latif Pedersen [facility] UNK - Ambulatory Encounter Comfort Christianson [facility] UNK - Ambulatory Encounter Tiara Christianson MedAdherence [facility] UNK - Ambulatory Encounter Edward Whiteabuinasir Roa Nnabuife [facility] UNK - Ambulatory Encounter [facility]is [facility]K - Ambulatory Encounter Edward Whiteabuife Edward Uatsdin Nnabuife [facility] UNK - Ambulatory Encounter Comfort Christianson [facility] UNK - Ambulatory Encounter Edward Whiteabuife Edward Uatsdin Nnabuife [facility] UNK - Ambulatory Encounter Edward Uatsdin Cindyabuife Edward Uatsdin Nnabuife [facility] UNK - Ambulatory Encounter Edward Uatsdin Nnabuife Edward Uatsdin Nnabuife [facility] UNK - Ambulatory Encounter Satinder Florezwuekathya Uatsdin N[place]uife Edward Uatsdin Nnabuife [facility] Chronic pain syndrome - Ambulatory Encounter Chuodilia Uatsdin N[place] Edward Uatsdin Nnabuife [facility] UNK - Ambulatory Encounter LS Lab Support Desktop LinkLogic Edward Uatsdin Nnabuife Edward Uatsdin Nnabuife [facility] UNK - Ambulatory Encounter Edward Uatsdin Nnabuife Edward Uatsdin Nnabuife [facility] UNK - Ambulatory Encounter Edward Uatsdin Nnabuife Edward Uatsdin Nnabuife [facility] UNK - Ambulatory Encounter Comfort Josephuekathya Uatsdin [place] Gautamwlinda Uatsdin [place] Osorio Benítez [facility] Well woman examCerumen impaction, bilateral - Ambulatory Encounter Satinder Christianson [facility] UNK - Ambulatory Encounter Satinder Christianson MedAdherence Eusebia Gagnon [place] UNK - Ambulatory Encounter Satinder Christianson MedAdherence Gautamwuemejose j Uatsdin [place] Gautamwuekathya Uatsdin Nnabuinasir Gagnon [facility] UNK - Ambulatory Encounter Satinder Christianson [facility] UNK - Ambulatory Encounter Tiara Christianson MedAdherence Alayna Gu [facility] Contact Center UNK - Ambulatory Encounter Chukwfabiánmejose j Uatsdin N[place]uife Chukwuemejose j Uatsdin Nnabuife LinkLogic [facility] UNK - Ambulatory Encounter Chukwuemejose j Uatsdin Nn[place]uife Chukwuemeka Uatsdin Nnabuife LinkLogic [facility] UNK - Ambulatory Encounter Satinder Christianson [facility] UNK - Ambulatory Encounter Satinder Harman LinkLog[facility] UNK - Ambulatory Encounter Fax Status LinkLogic [facility] UNK - Ambulatory Encounter Fax Status LinkLogic [facility] UNK - Ambulatory Encounter Fax Status LinkLogic [facility] UNK - Ambulatory Encounter Fax Status LinkLogic [facility] UNK - Ambulatory Encounter Fax Status LinkLogic [facility] UNK - Ambulatory Encounter Fax Status LinkLogic [facility] UNK - Ambulatory Encounter Satinder Montemayor [facility] UNK - Ambulatory Encounter Tiara Christianson MedAdherence Satinder Engel [facility] Contact Center UNK - Ambulatory Encounter Kimberly Roldankwuemejose j Roa Nnabuife Jamarkkavin Uatsdin Nnabuife [facility] Contact Center UNK - Ambulatory Encounter Satinder Harman Tiara Christianson [facility] UNK - Ambulatory Encounter Satinder Harman LinkLogic [facility] UNK - Ambulatory Encounter Fax Status LinkLogCount includes the [facility] UNK - Ambulatory Encounter Yonnydarryl Esquivel Tiara Christianson [facility]herence [facility] UNK - Ambulatory Encounter Chuodilia Uatsdin Nnabuife Edward Uatsdin Nnabuife LinkLogic [facility] UNK - Ambulatory Encounter Chuodilia Uatsdin [place] Edward Uatsdin Nnabuife LinkLogic [facility] UNK - Ambulatory Encounter Chukkavin Uatsdin N[place] Chuvidhyawlinda Uatsdin N[place] [facility] UNK - Ambulatory Encounter Chukwlinda Uatsdin N[place] Chukwuemejose j Uatsdin N[place] [facility] UNK - Ambulatory Encounter Chukwlinda Uatsdin N[place] Gautamwlinda Uatsdin N[place] [facility] UNK - Ambulatory Encounter Yonnydarryl Sierra Stephanie Leon Uatsdin N[place] Chukwlinda Uatsdin Nnabuife [facility] BMI 60.0-69.9, adultBMI 50.0-59.9 - Ambulatory Encounter Alayna Elijah [facility] UNK - Ambulatory Encounter Kayla Ruel [facility] UNK - Ambulatory Encounter Kaylakaylin Lipscomb [facility] UNK - Ambulatory Encounter Edward Lipscomb [facility] UNK - Ambulatory Encounter Satinder Christianson MedAdherence Kayla Reich [facility] UNK - Ambulatory Encounter F[facility]K - Ambulatory Encounter [facility] UNK - Ambulatory Encounter Fax Status LinkLogCount includes the [facility] UNK - Ambulatory Encounter Fax Status [facility] UNK - Ambulatory Encounter Bhavya Pedersen [facility] UNK - Ambulatory Encounter Edward Delgado [facility] UNK - Ambulatory Encounter Edward Delgado [facility] UNK - Ambulatory Encounter Edward [facility] UNK - Ambulatory Encounter Comfort Will [facility] Dyspnea at restCHF exacerbation - Ambulatory Encounter Tiny Vazquez Mckeon Tiny George Mckeon [facility] UNK - Ambulatory Encounter Tiny Vazquez Mckeon Tiny Vazquez [facility] BMI 50.0-59.9BMI 60.0-69.9, adult - Ambulatory Encounter Kayla Ruel [facility] UNK - Ambulatory Encounter Satinder Christianson MedAdherence Francesca Potts [facility] UNK - Ambulatory Encounter Violette Garza [facility] UNK - Ambulatory Encounter Chuvidhyawuekathya Uatsdin [place] Edward Uatsdin Nnabuife [facility] UNK - Ambulatory Encounter Gautamwlinda Uatsdin N[place] Edward Uatsdin N[facility]uife [facility] UNK - Ambulatory Encounter Chukwuekathya Uatsdin N[place] Edward Uatsdin Nnabuife [facility] UNK - Ambulatory Encounter Chukwlinda Uatsdin [place] Chukwfabiánmejose j Uatsdin N[place]uife [facility] UNK - Ambulatory Encounter Chuvidhyawlinda Uatsdin [place] Edward Uatsdin N[facility] UNK - Ambulatory Encounter Gill Leon Uatsdin N[place]uife Edward Uatsdin Nnabuife Violette Yuri Bakereca Suman [facility] Acute upper respiratory infection - Ambulatory Encounter Bhavya Pedersen [facility] - Ambulatory Encounter Satinder Harman [facility] UNK - Ambulatory Encounter Bhavya Pedersen MedAdherence [facility] Contact Center UNK - Ambulatory Encounter Comfort Trevino [facility] UNK - Ambulatory Encounter Norma Moserlory [facility] UNK - Ambulatory Encounter Fax Status LinkLogCount includes the [facility] UNK - Ambulatory Encounter F[facility] - Ambulatory Encounter Fax Status LinkLogCount includes the [facility] UNK - Ambulatory Encounter Alaynataye Krausa [facility] UNK - Ambulatory Encounter Edward Magañaian Nnabuife Edward Uatsdin Nnabuife [facility] UNK - Ambulatory Encounter Edward Uatsdin Nnabuife Edward Uatsdin Nnabuife [facility] UNK - Ambulatory Encounter Edward Uatsdin Nnabuife Edward Uatsdin Nnabuife [facility] UNK - Ambulatory Encounter Satinder Leon Uatsdin N[place] Edward Uatsdin Nnabuife Priya Mars [facility] UNK - Ambulatory Encounter Parrisleón Oleary [facility] UNK - Ambulatory Encounter Edward Magañaian Nnabuife Edward Uatsdin Nnabuife [facility]LogBay[facility] UNK - Ambulatory Encounter Bhavya Pedersen MedAdherence Kirsten Magañaian [place] Edward Uatsdin Danny Potts [facility] Contact Center UNK - Ambulatory Encounter Chukwallanjose j Uatsdin N[place]ife Chukwfabiánmejose j Uatsdin Nnabuife [facility] UNK - Ambulatory Encounter Chukwallanjose j Uatsdin [place] Chukwallanjose j Uatsdin N[place]uife [facility] UNK - Ambulatory Encounter Chukwallanjose j Uatsdin N[place] Chukwfabiánmejose j Uatsdin N[place]uife [facility] UNK - Ambulatory Encounter Chukwallanjose j Uatsdin [place] Chukwfabiánmejose j Uatsdin N[place]uife [facility] UNK - Ambulatory Encounter Gill Leon Uatsdin N[place] Chukwallanjose j Uatsdin Nnabuife [facility] UNK - Ambulatory Encounter Bhavya [facility]ermudezo [facility] UNK - Ambulatory Encounter Kayla Serrano [facility] Contact Center UNK - Ambulatory Encounter Churameshjose j Uatsdin N[place]uife Chukwallanjose j Uatsdin N[place]uife [facility] UNK - Ambulatory Encounter Tab Chang [facility] UNK - Ambulatory Encounter Chukwallanjose j Uatsdin N[place] Chukwallanjose j Uatsdin N[place]uife [facility] UNK - Ambulatory Encounter Chukwallanjose j Uatsdin [place] Chukwallanjose j Uatsdin N[place]uife [facility] UNK - Ambulatory Encounter LSJ Lab Support Desktop LinkLogic Tab Roldankwuemeka Uatsdin [place] Chukwuemeka Uatsdin N[place]uife [facility] UNK - Ambulatory Encounter Chukwuemeka Uatsdin N[place] Chukwuemeka Uatsdin N[place]abuife [facility] UNK - Ambulatory Encounter Chukwuemeka Uatsdin N[place] Chukwuemeka Uatsdin N[place]abuife [facility] UNK - Ambulatory Encounter Chukwuemeka Uatsdin N[place]uife Chukwuemeka Uatsdin Nnabuife [facility] UNK - Ambulatory Encounter Comfort Christianson MedAdherence Ch[place]wuem[place]a Uatsdin [place] Chukwuemeka Uatsdin N[place] Marielena Reich [facility] Screening for diabetes mellitusScreening for lipid disorder - Ambulatory Encounter Chukwuemeka Uatsdin N[place]uife Chukwuemeka Uatsdin Nnabuife [facility] GERD - Ambulatory Encounter Chukwuemeka Uatsdin N[place] Chukwuemeka Uatsdin N[place] Stephanie Isabel [facility] UNK - Ambulatory Encounter Chukwuemeka Uatsdin N[place]uife Chukwuemeka Uatsdin N[place]uife [facility] UNK - Ambulatory Encounter Tab Gu Chukwuemeka Uatsdin N[place] Chukwuemeka Uatsdin N[place] Vivian Pope Usman [facility] Contact Center UNK - Ambulatory Encounter Chukwuemeka Uatsdin N[place]uife Chukwuemeka Uatsdin Nnabuife [facility] UNK - Ambulatory Encounter Chuodilia Uatsdin N[place] Edward Uatsdin Nnabuife [facility] UNK - Ambulatory Encounter Chuodilia Uatsdin N[place] Edward Uatsdin Nnabuife [facility] UNK - Ambulatory Encounter Comfort Leon Uatsdin N[place] Edward Uatsdin Nnabuife [facility] Diabetes mellitus type II - Ambulatory Encounter Chuodilia Uatsdin [place] Edward Uatsdin Nn[place]uife LinkLogic [facility] UNK - Ambulatory Encounter Chuodilia Uatsdin N[place] Edward Uatsdin Nnabuife LinkLogic [facility] UNK - Ambulatory Encounter Loly Short [facility] UNK - Ambulatory Encounter Chuodilia Uatsdin N[place] Edward Uatsdin Nnabuife LinkLogic [facility] UNK - Ambulatory Encounter Chuodilia Uatsdin N[place]uife Edward Uatsdin Nnabuife [facility] UNK - Ambulatory Encounter Chuodilia Uatsdin N[place] Edward Uatsdin Nnabuife [facility] UNK - Ambulatory Encounter Chukkavin Uatsdin N[place]uife Edward Uatsdin Nnabuife [facility] UNK - Ambulatory Encounter Chuodilia Uatsdin N[place]uife Edward Uatsdin Nnabuife [facility] UNK - Ambulatory Encounter Satinder Leon Uatsdin N[place]uife Edward Uatsdin Nnabuife [facility] UNK - Ambulatory Encounter Tiara Christianson MedAdherence [facility] UNK - Ambulatory Encounter Bhavya Pedersen MedAdherence [facility] UNK - Ambulatory Encounter Bhavya Pedersen MedAdherence LinkLog[facility] UNK - Ambulatory Encounter Titi Kaitlynn Titi Sommermi LinkLogic [facility] UNK - Ambulatory Encounter Edward Uatsdin Nnabuife Edward Uatsdin Nnabuife LinkLogic [facility] UNK - Ambulatory Encounter Edward Uatsdin Nnabuife Edward Uatsdin Nnabuife LinkLogic [facility] UNK - Ambulatory Encounter Edward Uatsdin Nnabuife Edward Uatsdin Nnabuife [facility] UNK - Ambulatory Encounter Edward Uatsdin Nnabuife Edward Uatsdin Nnabuife [facility] UNK - Ambulatory Encounter Chuodilia Uatsdin N[place]uife Edward Uatsdin Nnabuife [facility] UNK - Ambulatory Encounter Chuodilia Uatsdin N[place] Edward Uatsdin Nnabuife [facility] UNK - Ambulatory Encounter Comfort Leon Uatsdin Nn[place]uife Chukwuemeka Uatsdin Nnabuife [facility] Abdominal distensionAbdominal pain, chronicAscitesUrinary retention - Ambulatory Encounter Tiara Christianson [facility] UNK - Ambulatory Encounter Tiara Christianson MedAdherence Loly Stewart Puckett [facility] UNK - Ambulatory Encounter Tiara Christianson [facility]Adherence [facility] UNK - Ambulatory Encounter Comfort Trevino [facility] UNK - Ambulatory Encounter Mae Rodney [facility] UNK - Ambulatory Encounter Fax Status LinkLogic [facility] UNK - Ambulatory Encounter Fax Status LinkLogic [facility] UNK - Ambulatory Encounter Fax Status LinkLogic [facility] UNK - Ambulatory Encounter Fax Status LinkLogic [facility] UNK - Ambulatory Encounter Fax Status LinkLogic [facility] UNK - Ambulatory Encounter Fax Status LinkLogic [facility] UNK - Ambulatory Encounter Edward Roa Nnabuife Edward Uatsdin N[facility]ife [facility] UNK - Ambulatory Encounter Edward Magañaian Nnabuife Edward Uatsdin Nnabuife [facility] UNK - Ambulatory Encounter Edward Magañaian Nnabuife Edward Uatsdin Nnabuife [facility] UNK - Ambulatory Encounter Toma Woods [facility] Mood Disorder, NOS - Ambulatory Encounter Lo Whiteabuife Edward Uatsdin Nnabuife Vivian Matthews [facility] Depression, majorSuicidal ideation - Ambulatory Encounter Comfort Trevino [facility] - Ambulatory Encounter Tiara Winslow [facility] UNK - Ambulatory En[facility] - Ambulatory Encounter Bhavya Pedersen [facility] UNK - Ambulatory Encounter Edward Uatsdin Nnabuife Edward Uatsdin Nnabuife [facility] UNK - Ambulatory Encounter Chuodilia Uatsdin [place] Gautamwlinda Uatsdin N[place]ife [facility] UNK - Ambulatory Encounter Chukwlinda Uatsdin [place] Gautamwlinda Uatsdin N[place] [facility] UNK - Ambulatory Encounter Chuodilia Uatsdin [place] Gautamwuekathya Uatsdin N[place] [facility] UNK - Ambulatory Encounter Chuodilia Uatsdin [place] Gautamwlinda Uatsdin N[place]uife [facility] UNK - Ambulatory Encounter Gill Roa Nnabuife Edward Uatsdin Nnabuife [facility] UNK - Ambulatory Encounter Loly Winslow [facility] UNK - Ambulatory Encounter Tiara Christianson MedAdherence [facility] UNK - Ambulatory Encounter Chukkavin Uatsdin Nn[place]uife Jamarkwilnda Uatsdin N[place]uife [facility] UNK - Ambulatory Encounter Bhavya Pedersen MedAdherence [facility] UNK - Ambulatory Encounter Bhavya Pedersen MedAdherence LinkLogic [facility] UNK - Ambulatory Encounter Edward Roa Nnabuife Edward Uatsdin Nnabuife Tab Matthews [facility] UNK - Ambulatory Encounter Comfort TorresLog [facility] UNK - Ambulatory Encounter Chukkavin Uatsdin N[place]uife Jamarkkavin Uatsdin Nn[place]uife [facility] UNK - Ambulatory Encounter Chukwlinda Uatsdin N[place] Chukwuemejose j Uatsdin Nnabuife [facility] UNK - Ambulatory Encounter Chukwlinda Uatsdin [place] Jamarkwlinda Uatsdin N[place] [facility] UNK - Ambulatory Encounter Chukwlinda Uatsdin N[place] Jamarkwlinad Uatsdin N[place]ife [facility] UNK - Ambulatory Encounter Comfort Leon Uatsdin N[place] Chukwuemejose j Uatsdin Nnabuife [facility] COPD with exacerbation - Ambulatory Encounter Tiara Christianson MedAdherence [facility] UNK - Ambulatory Encounter Tiara Morgansey Short Donna Sabiha [facility] UNK - Ambulatory Encounter Tiara CisnerosAdherence [facility] UNK - Ambulatory Encounter Chukkavin Uatsdin Nn[place]uife Chukwuemeka Uatsdin Nnabuife [facility] UNK - Ambulatory Encounter Chukwfabiánmejose j Uatsdin [place] Chukwuemeka Uatsdin Nnabuife [facility] UNK - Ambulatory Encounter Gill Roldankwuemejose j Uatsdin N[place]ife Chukwuemejose j Uatsdin N[place]uife [facility] UNK - Ambulatory Encounter Loly Goldy Thompson Sabiha [facility] UN[facility] - Ambulatory Encounter Chuodilia Uatsdin N[place]ife Chukwuemejose j Uatsdin Nnabuife LinkLogic [facility] UNK - Ambulatory Encounter Loly Winslow Donna Sabiha [facility] UNK - Ambulatory Encounter Fax [...] [facility] UNK - Ambulatory Encounter Titi Kaitlynn Titi [facility] UNK - Ambulatory Encounter Titi Kaitlynn [facility] UNK - Ambulatory Encounter Titi Kaitlynn [facility] UNK - Ambulatory Encounter Lo Gu Titi Kaitlynn [facility] MUSCLE SPASMEAR PAIN, RIGHTCandidal vaginitisOtitis media, acute - Ambulatory Encounter Satinder Gu [facility] UNK - Ambulatory Encounter Fax Status LinkLogic [facility] UNK - Ambulatory [facility] En[facility] - Ambulatory Encounter Bhavya Pedersen MedBhavani Viram[facility]es [facility] Services UNK - Ambulatory Encounter Edward Roa N[place]abuife Edward Roa N[place]ife [facility] UNK - Ambulatory Encounter Satinder Roa [place] Edward [place] Ayanna Matthews [facility] Breast abnormal findingsChronic bronchitisBMI 50.0-59.9 - Ambulatory Encounter Comfort Trevino [facility] UNK - Ambulatory Encounter Tiara Christianson MedAdherence [facility] UNK - Ambulatory Encounter Tiara Christians[facility]ulatory Encounter Bhavya Pedersen [facility]Ad[facility] UNK - Ambulatory Encounter Bhavya Pedersen MedAdherence [facility] UNK - Ambulatory Encounter Lo Esquivel [facility] UNK - Ambulatory Encounter Lo Esquivel [facility] UNK - Ambulatory Encounter Bhavya Santanaence Stephanie Hernandez [facility] UNK - Ambulatory Encounter Lo Esquivel [facility] UNK - Ambulatory Encounter Lo Esquivel Link[facility] UNK - Ambulatory Encounter Lo Esquivel Link[facility] UNK - Ambulatory Encounter Nupur Chong [facility] UNK - Ambulatory Encounter Nupur Chong [facility] UNK - Ambulatory Encounter Edwin Umana [facility] UNK - Ambulatory Encounter Edwin Umana [facility] UNK - Ambulatory Encounter Edwin Umana [facility] UNK - Ambulatory Encounter Comfort Gamino [facility] MORBID OBESITYOtitis media, acute - Ambulatory Encounter Fabricio Beard [facility] UNK - Ambulatory Encounter Lo Esquivel [facility] UNK - Ambulatory Encounter [place] Esquivel Francesca Gamino [facility] Candidal vaginitis - Ambulatory Encounter Lo Esquivel [facility] UNK - Ambulatory Encounter Breana Rosario [facility] UNK - Ambulatory Encounter Breana Rosario [facility] UNK - Ambulatory Encounter Mary Soto [facility] UNK - Ambulatory Encounter Fabricio Beard [facility] UNK - Ambulatory Encounter Bria Young [facility] UNK - Ambulatory Encounter [facility] UNK - Ambulatory Encounter Fabricio Beard [facility] UNK - Ambulatory Encounter Gita Maco [facility] UNK - Ambulatory Encounter Comfort [facility] - [facility] - [facility]ulatory Encounter Comfort Trevino [facility] UNK - Ambulatory Encounter Carmelina Gu [facility] UNK - Ambulatory Encounter Jan Johnson [facility] UNK - Ambulatory Encounter Fax Status LinkLogic [facility] UNK - Ambulatory Encounter Fax Status LinkLogic [facility] UNK - Ambulatory Encounter Fax Status LinkLogic [facility] UNK - Ambulatory Encounter Deniz Lira [facility] UNK - Ambulatory Encounter Bhavya Pedersen MedAdherence [facility] UNK - Ambulatory Encounter Comfort Trevino [facility] UNK - Ambulatory Encounter Comfort Trevino [facility] UNK - Ambulatory Encounter Comfort Trevino [facility] UNK - Ambulatory Encounter Fax Status LinkLogic [facility] UNK - Ambulatory Encounter Fax Status LinkLogic [facility] UNK - Ambulatory Encounter Comfotr Trevino Link[facility] UNK - Ambulatory Encounter Fax Status LinkLogic [facility] UNK - Ambulatory Encounter Fax Status LinkLogic [facility] UNK - Ambulatory Encounter Comfort Trevino [facility] UNK - Ambulatory Encounter Comfort Trevino [facility] UNK - Ambulatory Encounter Comfort Trevino Link[facility] UNK - Ambulatory Encounter Comfort Trevino [facility] UNK - Ambulatory Encounter Kimberly Jorgensen Bhavya Pedersen MedAdherence Comfort Feldman [facility] UNK - Ambulatory Encounter Kimberly [facility] UNK - Ambulatory Encounter Tab Charlene [facility] UNK - Ambulatory Encounter Fax Status LinkLogic [facility] UNK - Ambulatory Encounter Fax Status [facility] - [facility]ulatory Encounter Fax Status [facility] UN[facility] - Ambulatory Encounter Kimberly [facility] UNK - Ambulatory Encounter Comfort [facility] UNK - Ambulatory Encounter Comfort Trevino [facility]Logedward [facility] - [facility]ulatory Encounter Fax Status [facility] UN[facility] - Ambulatory Encounter Jenny Gaston [facility] UNK - Ambulatory Encounter Fax Status [facility] UNK - Ambulatory Encounter Fax Status [facility] UNK - Ambulatory Encounter Comfort [facility] UNK - Ambulatory Encounter Kimberly [facility] UNK - Ambulatory Encounter Comfort TorresLogedward [facility] UN[facility] - Ambulatory Encounter Jenny Feldman [facility] UNK - Ambulatory Encounter Gosia [facility] UNK - Ambulatory Encounter Comfort TorresLogedward [facility] UNK - Ambulatory Encounter Comfort Tellez [facility] CHRONIC OBSTRUCTIVE PULMONARY DISEASE, ACUTE EXACERBATIONCHFSLEEP APNEA - Ambulatory Encounter Gill Villafuerte [facility] UNK - Ambulatory Encounter Fax Status LinkLogic [facility] UNK - Ambulatory Encounter Fax Status LinkLogic [facility] UNK - Ambulatory Encounter Fax Status LinkLogic [facility] UNK - Ambulatory Encounter Fax Status LinkLogic [facility] UNK - Ambulatory Encounter Fax Status LinkLogic [facility] UNK - Ambulatory Encounter Fax Status LinkLogic [facility] UNK - Ambulatory Encounter Fax Status LinkLogic [facility] UNK - Ambulatory Encounter Jenny Feldman [facility] UNK - Ambulatory Encounter Thea Puppala Thea Puppala Rosalinda Sylvia [facility] LOW BACK PAIN - Ambulatory Encounter Sabra Stephen [facility] UNK - Ambulatory Encounter Sabra Stephen [facility] UNK - Ambulatory Encounter Ernesto Gaffney [facility] DEPENDENT EDEMA, LEGS - Ambulatory Encounter Bhavya Pedersen MedAd[facility] UNK - Ambulatory Encounter Bhavya Pedersen MedAdherence Link[facility] UNK - Ambulatory Encounter [facility]elle [facility] - [facility]ulatory En[facility]elle [facility] - Ambulatory Encounter [facility]elle [facility] - Ambulatory Encounter [facility]elle [facility] - Ambulatory Encounter Jonelle [facility] - Ambulatory Encounter Malena Isabel [facility] UNK - Ambulatory Encounter Ernesto Matthews [facility] EAR PAIN, RIGHTBLURRED VISIONHEARING DEFICIT - Ambulatory Encounter Episcopalian Preload LinkLogic [facility] UNK - Ambulatory Encounter Episcopalian Preload LinkLogic [facility] UNK - Ambulatory Encounter Episcopalian Preload LinkLogic [facility] UNK - Ambulatory Encounter Episcopalian Preload LinkLogic [facility] UNK - Ambulatory Encounter Episcopalian Preload LinkLogic [facility] UNK - Ambulatory Encounter Episcopalian Preload LinkLogic [facility] UNK - Ambulatory Encounter Episcopalian Preload LinkLogic [facility] UNK - Ambulatory Encounter Episcopalian Preload LinkLogic [facility] UNK - Ambulatory Encounter Episcopalian Preload LinkLogic [facility] UNK - Ambulatory Encounter Episcopalian Preload LinkLogic [facility] UNK - Ambulatory Encounter Episcopalian Preload LinkLogic [facility] UNK - Ambulatory Encounter Episcopalian Preload LinkLogic [facility] UNK - Ambulatory Encounter Episcopalian Preload LinkLogic [facility] UNK - Ambulatory Encounter Episcopalian Preload LinkLogic [facility] UNK - Ambulatory Encounter Episcopalian Preload LinkLogic [facility] UNK - Ambulatory Encounter Episcopalian Preload LinkLogic [facility] UNK - Ambulatory Encounter Episcopalian Preload LinkLogic [facility] UNK - Ambulatory Encounter Episcopalian Preload LinkLogic [facility] UNK - Ambulatory Encounter Episcopalian Preload LinkLogic [facility] UNK - Ambulatory Encounter Episcopalian Preload LinkLogic [facility] UNK - Ambulatory Encounter Episcopalian Preload LinkLogic [facility] UNK - Ambulatory Encounter Episcopalian Preload LinkLogic [facility] UNK - Ambulatory Encounter Episcopalian Preload LinkLogic [facility] UNK - Ambulatory Encounter Episcopalian Preload LinkLogic [facility] UNK - Ambulatory Encounter Episcopalian Preload LinkLogic [facility] UNK - Ambulatory Encounter Episcopalian Preload LinkLogic [facility] UNK - Ambulatory Encounter Episcopalian Preload LinkLogic [facility] UNK - Ambulatory Encounter Episcopalian Preload LinkLogic [facility] UNK - Ambulatory Encounter Episcopalian Preload LinkLogic [facility] UNK - Ambulatory Encounter Episcopalian Preload LinkLogic [facility] UNK - Ambulatory Encounter Episcopalian Preload LinkLogic [facility] UNK - Ambulatory Encounter Episcopalian Preload LinkLogic [facility] UNK - Ambulatory Encounter Episcopalian Preload LinkLogic [facility] UNK - Ambulatory Encounter [facility]opalian [facility] - Ambulatory Encounter Episcopalian Preload LinkLogic [facility] UNK - Ambulatory Encounter Episcopalian Preload LinkLogic [facility] UNK - Ambulatory Encounter Episcopalian Preload LinkLogic [facility] UNK - Ambulatory Encounter Episcopalian Preload LinkLogic [facility] UNK - Ambulatory Encounter Episcopalian Preload LinkLogic [facility] UNK - Ambulatory Encounter Episcopalian Preload LinkLogic [facility] UNK - Ambulatory Encounter Episcopalian Preload LinkLogic [facility] UNK - Ambulatory Encounter Episcopalian Preload LinkLogic [facility] UNK - Ambulatory Encounter Episcopalian Preload LinkLogic [facility] UNK - Ambulatory Encounter Episcopalian Preload LinkLogic [facility] UNK - Ambulatory Encounter Episcopalian Preload LinkLogic [facility] UNK - Ambulatory Encounter Episcopalian Preload LinkLogic [facility] UNK - Ambulatory Encounter Episcopalian Preload LinkLogic [facility] UNK - Ambulatory Encounter Episcopalian Preload LinkLog[facility] UNK - Ambulatory Encounter Episcopalian Preload LinkLogic [facility] UNK - Ambulatory Encounter Episcopalian Preload LinkLogic [facility] UNK - Ambulatory Encounter Episcopalian Preload LinkLogic [facility] UNK - Ambulatory Encounter Episcopalian Preload LinkLogic [facility] UNK - Ambulatory Encounter Episcopalian Preload LinkLogic [facility] UNK - Ambulatory Encounter Episcopalian Preload LinkLogic [facility] UNK - Ambulatory Encounter Episcopalian Preload LinkLogic [facility] UNK - Ambulatory Encounter Episcopalian Preload LinkLogic [facility] UNK - Ambulatory Encounter Episcopalian Preload LinkLog[facility] UNK - Ambulatory Encounter Episcopalian Preload LinkLog[facility] UNK - Ambulatory Encounter Episcopalian Preload LinkLog[facility] UNK - Ambulatory Encounter Episcopalian Preload LinkLogic [facility] UNK - Ambulatory Encounter Episcopalian Preload LinkLogic [facility] UNK - Ambulatory Encounter Episcopalian Preload LinkLog[facility] UNK - Ambulatory Encounter Episcopalian Preload LinkLogic [facility] UNK - Ambulatory Encounter Episcopalian Preload LinkLogic [facility] UNK - Ambulatory Encounter Episcopalian Preload LinkLogic [facility] UNK - Ambulatory Encounter Episcopalian Preload LinkLogic [facility] UNK - Ambulatory Encounter Episcopalian Preload LinkLogic [facility] UNK - Ambulatory Encounter Episcopalian Preload LinkLogic [facility] UNK - Ambulatory Encounter Sharpetaniya Gaffney [facility] UNK - Ambulatory Encounter Episcopalian Preload LinkLog[facility] UNK - Ambulatory Encounter Episcopalian Preload LinkLogic [facility] UNK - Ambulatory Encounter Episcopalian Preload LinkLogic [facility] UNK - Ambulatory Encounter Episcopalian Preload LinkLogic [facility] UNK - Ambulatory Encounter Episcopalian Preload LinkLogic [facility] UNK - Ambulatory Encounter Episcopalian Preload LinkLogic [facility] UNK - Ambulatory Encounter Episcopalian Preload LinkLogic [facility] UNK - Ambulatory Encounter Episcopalian Preload LinkLogic [facility] UNK - Ambulatory Encounter Episcopalian Preload LinkLogic [facility] UNK - Ambulatory Encounter Episcopalian Preload LinkLogic [facility] UNK - Ambulatory Encounter Episcopalian Preload LinkLogic [facility] UNK - Ambulatory Encounter Episcopalian Preload LinkLogic [facility] UNK - Ambulatory Encounter Episcopalian Preload LinkLogic [facility] UNK - Ambulatory Encounter Episcopalian Preload LinkLog[facility] UNK - Ambulatory Encounter Episcopalian Preload LinkLogic [facility] UNK - Ambulatory Encounter Episcopalian Preload LinkLogic [facility] UNK - Ambulatory Encounter Episcopalian Preload LinkLogic [facility] UNK - Ambulatory Encounter Episcopalian Preload LinkLogic [facility] UNK - Ambulatory Encounter Episcopalian Preload LinkLogic [facility] UNK - Ambulatory Encounter Episcopalian Preload LinkLogic [facility] UNK - Ambulatory Encounter Episcopalian Preload LinkLogic [facility] UNK - Ambulatory Encounter Episcopalian Preload LinkLogic [facility] UNK - Ambulatory Encounter Episcopalian Preload LinkLogic [facility] UNK - Ambulatory Encounter Episcopalian Preload LinkLogic [facility] UNK - Ambulatory Encounter Episcopalian Preload LinkLogic [facility] UNK - Ambulatory Encounter Episcopalian Preload LinkLogic [facility] UNK - Ambulatory Encounter Episcopalian Preload LinkLogic [facility] UNK - Ambulatory Encounter Episcopalian Preload LinkLogic [facility] UNK - Ambulatory Encounter Episcopalian Preload LinkLogic [facility] UNK - Ambulatory Encounter Episcopalian Preload LinkLogic [facility] UNK - Ambulatory Encounter Episcopalian Preload LinkLogic [facility] UNK - Ambulatory Encounter Episcopalian Preload LinkLogic [facility] UNK - Ambulatory Encounter Episcopalian Preload LinkLogic [facility] UNK - Ambulatory Encounter Episcopalian Preload LinkLogic [facility] UNK - Ambulatory Encounter Episcopalian Preload LinkLogic [facility] UNK - Ambulatory Encounter Episcopalian Preload LinkLogic [facility] UNK - Ambulatory Encounter Episcopalian Preload LinkLogic [facility] UNK - Ambulatory Encounter Episcopalian Preload LinkLogic [facility] UNK - Ambulatory Encounter [facility]iscopalian Preload [facility] UNK - Ambulatory Encounter Episcopalian Preload [facility] UNK - Ambulatory Encounter Episcopalian Preload [facility] UNK - Ambulatory Encounter Colleen Pace [facility] UNK - Ambulatory Encounter Sharpe Gulshan [facility] UNK - Ambulatory Encounter Gill Villafuerte [facility] Sharpe Vo [facility] UNK - Ambulatory Encounter Gill Macias Pace [facility] UNK - [facility] - [facility] Encounter Annemarie Carronez Bhavya Pedersen MedAdherence [facility] UNK - Ambulatory Encounter Gill Villafuerte [facility] UNK - Ambulatory Encounter Gill Gaffney [facility] Gutierrez [facility] COPDNICOTINE ADDICTIONSARCOIDOSISHYPERTENSIONMUSCLE SPASM - Ambulatory Encounter Ernesto [facility] UNK VITAL SIGNS Date Observation Value Provider oxygen saturation, oximetry 93 % Sheryl Odonnell " method used to obtain blood pressure automatic Sheryl Odonnell " Blood Pressure Position 01 sitting Sheryl Odonnell " blood pressure, site #1 left arm Sheryl Odonnell " blood pressure, diastolic 84 mm[Hg] Sheryl Odonnell " blood pressure, systolic 136 mm[Hg] Sheryl Odonnell " respiratory rate E&M 20 /min Sheryl Odonnell " pulse rate E&M 98 /min [place]a Uatsdin Nnabuife " temperature site oral Sheryl Odonnell " temperature E&M 98.3 [degF] Sheryl Odonnell " weight E&M 319 lbs. Sheryl Odonnell " weight in kilograms E&M 145 kg Sheryl Odonnell " height E&M 61 [in_i] Sheryl Odonnell " height in centimeters E&M 154.94 cm Sheryl Odonnell method used to obtain blood pressure automatic [facility] Lebron " Blood Pressure Position 01 sitting [facility] Lebron " blood pressure, site #1 left arm Francesca M Lebron " oxygen saturation, oximetry 95 % [facility] Lebron " blood pressure, diastolic 83 mm[Hg] Francecsa Lebron " blood pressure, systolic 129 mm[Hg] Francesca Lebron " respiratory rate E&M 18 /min Francesca Lebron " pulse rate E&M 99 /min [place] Uatsdin Nnabuinasir " temperature site oral Francesca M Lebron " temperature E&M 98.0 [degF] Francesca Lebron " weight E&M 326.20 lbs. Francesca M Lebron " weight in kilograms E&M 148.27 kg Francesca M Lebron " height in centimeters E&M 154.94 cm Francesca M Lebron " height E&M 61 [in_i] Francesca M Lebron method used to obtain blood pressure automatic [facility] Lebron " Blood Pressure Position 01 sitting [facility] Lebron " blood pressure, site #1 left arm Francesca Lebron " oxygen saturation, oximetry 98 % [facility] Lebron " blood pressure, diastolic 84 mm[Hg] Francesca M Lebron " blood pressure, systolic 135 mm[Hg] Francesca Lebron " respiratory rate E&M 18 /min Francesca Lebron " pulse rate E&M 98 /min Francesca Diana " temperature site oral Francesca Diana " [...] Isabel " blood pressure, systolic 128 mm[Hg] Gautamwuejose j Uatsdin Nnabuife " respiratory rate E&M 17 /min [...] Hafsa Will " temperature E&M 98.5 [degF] Hafsarenard Will " weight E&M 329.38 lbs. Hafsa Will " weight in kilograms E&M 149.72 kg Hafsa Suman " height E&M 61 [in_i] Hafsarenard Will " height in centimeters E&M 154.94 cm Hafsa Mottaez oxygen saturation, oximetry 92 % Priya Jerad [...] /min Stephanie Isabel " temperature site oral Stephnaie Isabel " temperature E&M 98.1 [degF] Stephanie [...] " blood pressure, diastolic 82 mm[Hg] Taina Riccardo " blood pressure, systolic 144 mm[Hg] Taina [...] " blood pressure, diastolic 81 mm[Hg] Francesca Stevenson " blood pressure, systolic 112 mm[Hg] Francesca Gamino " respiratory rate E&M 17 /min Francesca Gamino " pulse rate E&M 93 /min Francesca Gamino " temperature E&M 98.3 [degF] Francesca Gamino " method used to obtain blood pressure automatic Francesca Gamino " Blood Pressure Position 01 sitting Francesca Gamino " blood pressure, site #1 right arm Francesca Stevenson " temperature site oral Francescalloyd Gamino " weight E&M 274.38 lbs. Francesca Gamino " weight in kilograms E&M 124.72 kg Francesca Gamino " height E&M 61 [in_i] Francesca Parkerrez " height in centimeters E&M 154.94 cm Francesca Parkerrez oxygen saturation, oximetry 96 % Francesca Parkerrez " blood pressure, diastolic 82 mm[Hg] Francesca Parkerrez " blood pressure, systolic 124 mm[Hg] Francesca Parkerrez " respiratory rate E&M 17 /min Francesca Parkerrez " pulse rate E&M 89 /min Francesca Parkerrez " temperature E&M 98.4 [degF] Francesca Parkerrez " method used to obtain blood pressure manual Francesca Stevenson " Blood Pressure Position 01 sitting Francesca Parkerrez " blood pressure, site #1 right arm [...] used to obtain blood pressure automatic Colleen Gaspars " Blood Pressure Position 01 sitting Colleen Gaspars " blood pressure, site #1 left arm Colleen Pace " blood pressure, diastolic 88 mm[Hg] Colleen Pace " blood pressure, systolic 120 mm[Hg] Colleen Pace " pulse rate E&M 100 /min Colleen Pace " temperature E&M 99.9 [degF] Colleen Gaspars " weight E&M 273.25 lbs. Colleen Pace " weight in kilograms E&M 124.20 kg Colleenkaylin Gaspars " height E&M 61 [in_i] Colleen Gaspars " height in centimeters E&M 154.94 [...] used to obtain blood pressure manual Honey Brenda " Blood Pressure Position 01 sitting Honey [...] High blood glucose, random 256 mg/dL Edward Uatsdin [facility] " hemoglobin A1C, blood, as % of total hemoglobin 8.3 % Edward Fraga hematocrit, blood 37.6 % Kayla Lipscomb " [...] " urea nitrogen/creatinine ratio, serum 10 [employer] 9- " Estimated Glomerular Filtration Rate (calc) 87 mL/min/((173/100).m2) [employer] >59 " creatinine, serum 0.84 mg/dL [employer] 0.57-1.00 " urea nitrogen, blood 8 mg/dL [employer] 6-24 " blood glucose, random 81 mg/dL [employer] 65-99 HISTORY OF IMMUNIZATIONS No Information Available HISTORY OF MEDICATION USE Medication Instructions Dates Provider Comments MIRALAX ORAL POWDER 1 capfull mixed with 4 oz juice/water daily as needed for constipation Edward Delgado NALTREXONE HCL 50 MG ORAL TABLET take half tablet Twice a Day Edward Delgado DOXYCYCLINE HYCLATE 100 MG ORAL [...] TABLET BY MOUTH TWICE DAILY Tiara Christianson [facility] MUCINEX 600 MG ORAL TABLET EXTENDED RELEASE 12 HOUR take 1 tablet twice a day Edward Delgado TESSALON PERLES 100 MG ORAL CAPSULE 1 by mouth 3 times a day as needed for cough Edward Delgado BUPROPION HCL ER (SR) 100 MG ORAL TABLET EXTENDED RELEASE 12 HOUR take 1 tab Twice a Day Edward Delgado METFORMIN 500MG TAB TAKE 1 TABLET BY MOUTH ONCE DAILY [facility] FREESTYLE LANCETS Use as directed to test blood sugar once daily [facility]ers[facility] ICD CODE E11.9 FREESTYLE LITE TEST IN VITRO STRIP Use as directed to test blood sugar once daily [facility] Peders[facility] ICD CODE E11.9 FREESTYLE FREEDOM LITE W/DEVICE KIT Use as directed to test blood sugar once daily [facility]havya Peders[facility] ICD CODE E11.9 BD ULTRA-FINE MICRO PEN NEEDLE 32G X 6 MM use as instructed with kwik pen Edward Delgado PANTOPRAZOLE SODIUM 40 MG ORAL TABLET DELAYED RELEASE Take 1 tablet by mouth once daily Edward Delgado HUMALOG MIX 75/25 KWIKPEN (75-25) 100 UNIT/ML SUBCUTANEOUS SUSPENSION PEN-INJECT INJECT 50 UNITS SUB-Q 15 MINUTES BEFORE BREAKFAST AND 26 UNITS 15 MINUTES BEFORE DINNER DAILY Katy Ellsworth [facility], AZITHROMYCIN 250 MG ORAL TABLET 2 tablets [...] a Day to administer insulin [facility] Updated directions IPRATROPIUM/ ALBUTER EMI USE 1 AMPULE IN NEBULIZER EVERY 4 HOURS NEEDED FOR WHEEZING Tiara Christianson [facility] AZITHROMYCIN 250 MG ORAL TABLET 2 tablets [...] for a total of 5 days - Comofrt Trevino SPIRIVA HANDIHALER 18 MCG INHALATION CAPSULE [...] TABLET take 1 By Mouth daily - Chukwuemeka Uatsdin [facility] PREDNISONE 20MG TAB TAKE 1 TABLET BY MOUTH ONCE DAILY Edward Roa Nn[facility]uife PROVENTIL HFA 108 (90 Base) MCG/ACT INHALATION AEROSOL SOLUTION 2 puffs every 4 hours as needed - Comfort Trevino ADVAIR DISKUS 250-50 MCG/DOSE INHALATION AEROSOL POWDER BREATH ACTIVATED take 1 puff Twice a Day - Annemarie Gaffney SOCIAL HISTORY Date Observation Value Provider drug use, illicit Never Sheryl Odonnell " alcohol use Currently Sheryl Odonnell " social history E&M Single. Not homeless. Born in [facility]. City: [facility]. State: [place]. Not employed. Retired. Highest education level: high school graduate. Gender of partner(s): male. Sheryl Odonnell " social history reviewed E&M reviewed today Sheryl Odonnell " assessment of health literacy ([facility] 2014 Standards, 3C10) Adequate Sheryl Odnonell " passive cigarette smoke exposure No Sheryl Odonnell " if the patient is using/has used a vaping item, Current, Former, Never Used, Not asked No Sheryl Odonnell " smoking status former smoker Sheryl Odonnell " Exercise Program Referral T Sheryl Odonnell " Weight Management Counseling Provided T Sheryl Odonnell " Nutrition intervention T Sheryl Odonnell social history E&M Single. Not homeless. Born in [facility]. City: [facility]. State: [place]. Not employed. Retired. Highest education level: high school graduate. Gender of partner(s): male. Francesca Diana " social history reviewed E&M reviewed today Francesca Diana " assessment of health literacy ([facility] 2014 Standards, 3C10) Adequate Francesca Diana " passive cigarette smoke exposure Yes Francesca Diana " smoking status former smoker Francesca Diana " Exercise Program Referral T Francesca Diana " Weight Management Counseling Provided T Francesca Diana " Nutrition intervention T Francesca Diana time of call 07/18/2019 2:19 PM Eusebia Gagnon social history E&M Single. Not homeless. Born in [facility]. City: [facility]. State: [place]. Not employed. Retired. Highest education level: high school graduate. Gender of partner(s): male. Francesca Orozco Lebron " social history reviewed E&M reviewed today Francesca Bergmanirez " assessment of health literacy ([facility] 2014 Standards, 3C10) Adequate Francescalloyd Diana " passive cigarette smoke exposure Yes Francesca Orozco Lebron " smoking status former smoker Francesca Bergmanirez " Exercise Program Referral T Francescalloyd Diana " Weight Management Counseling Provided T Francesca Diana " Nutrition intervention T Francescalloyd Diana Exercise Program Referral Miguel A Harman " Weight Management Counseling Provided Miguel A Harman " Nutrition intervention Miguel A Harman drug use, illicit Never Nupur Chong " alcohol use Currently Nupur Chong " social history E&M Single. Not homeless. Born in [facility]. City: [facility]. State: [place]. Not employed. Retired. Highest education level: high school graduate. Gender of partner(s): male. Nupur Chong " social history reviewed E&M reviewed today Nupur Chong " assessment of health literacy ([facility] 2014 Standards, 3C10) Adequate Nupur Chong " passive cigarette smoke exposure Yes Nupur Chong " smoking status former smoker Nupur Chong time of call 04/02/2019 8:30 AM Daphney Espitia drug use, illicit Never Stephanie Chalo " alcohol use Currently Stephanie Chalo " social history E&M Single. Not homeless. Born in [facility]. City: [facility]. State: [place]. Not employed. Retired. Highest education level: high school graduate. Gender of partner(s): male. Stephanie Isabel " social history reviewed E&M reviewed today Stephanie Isabel " assessment of health literacy ([facility] 2014 Standards, 3C10) Adequate Stephanie Cahlo " passive cigarette smoke exposure Yes Stephanie Chalo " smoking status former smoker Stephanie Chalo " Exercise Program Referral T Stephanie Isabel " Weight Management Counseling Provided T Stephanie Isabel " Nutrition intervention Miguel A Isabel sunscreen use No Jamarodilia Crispin Boyceuinasir " Exercise Program Referral T Edward Delgado " Weight Management Counseling Provided T Edward Delgado " Nutrition intervention T Edward Delgado " drug use, illicit Never Nupur Chong " alcohol use Currently Nupur Chong " social history E&M Single. Not homeless. Born in [facility]. City: [facility]. State: [place]. Not employed. Retired. Highest education level: high school graduate. Gender of partner(s): male. Nupur Chong " social history reviewed E&M reviewed today Nupur Chong " assessment of health literacy ([facility] 2014 Standards, 3C10) Adequate Nupur [...] history E&M Single. Not homeless. Born in [facility]. City: [facility]. State: [place]. Not employed. Retired. Highest education level: high school graduate. Gender of partner(s): male. Nupur Chong " social history reviewed E&M reviewed today Nupur Chong " assessment of health literacy ([facility] 2014 Standards, 3C10) Adequate Nupur Chong " passive cigarette smoke exposure No Nupur Chong " smoking status former smoker Nupur Chong time of call 11/21/2018 9:45 AM Joaquim Engel drug use, illicit Never Stephanie Chalo " alcohol use Currently Stephanie Chalo " social history E&M Single. Not homeless. Born in [facility]. City: [facility]. State: [place]. Not employed. Retired. Highest education level: high school graduate. Gender of partner(s): male. Stephanie Isabel " social history reviewed E&M reviewed today Stephanie Chalo " assessment of health literacy ([facility] 2014 Standards, 3C10) Adequate Stephanie [...] time of call 08/07/2018 1:51 PM Clementine Ron drug use, illicit Never Hafsa Will " alcohol use Currently Hafsa Will " social history E&M Single. Not homeless. Born in [facility]. City: [facility]. State: [place]. Not employed. Retired. Highest education level: high school graduate. Gender of partner(s): male. Hafsa Will " social history reviewed E&M reviewed today Hafsa Will " assessment of health literacy ([facility] 2014 Standards, 3C10) Adequate Hafsa [...] history E&M Single. Not homeless. Born in [facility]. City: [facility]. State: [place]. Not employed. Retired. Highest education level: high school graduate. Gender of partner(s): male. Violette Pool " social history reviewed E&M reviewed today Violette Pool " assessment of health literacy ([facility] 2014 Standards, 3C10) Adequate Violette Pool " passive cigarette smoke exposure No Violette Pool " smoking status former smoker Violette Pool alcohol use Currently Hafsa Will " drug use, illicit Never Hafsa Will " social history E&M Single. Not homeless. Born in [facility]. City: [facility]. State: [place]. Not employed. Retired. Highest education level: high school graduate. Gender of partner(s): male. Hafsa Will " social history reviewed E&M reviewed today Hafsa Will " assessment of health literacy ([facility] 2014 Standards, 3C10) Adequate Hafsa [...] history E&M Single. Not homeless. Born in [facility]. City: [facility]. State: [place]. Not employed. Retired. Highest education level: high school graduate. Gender of partner(s): male. Priya Mars " social history reviewed E&M reviewed today Priya Mars " assessment of health literacy ([facility] 2014 Standards, 3C10) Adequate Priya Mars " is there any chance that you could be ? No Priya Mars " passive cigarette smoke exposure Yes Priya Mars " smoking status former smoker Priya Mars " Exercise Program Referral T Priya Mars " Weight Management Counseling Provided T Priya Mars " Nutrition intervention T Priya Jerad time of call 05/03/2018 12:59 PM Raysa Potts Exercise Program Referral T Edward Whiteabuife " Weight Management Counseling Provided T Edward Roa Nnabuife " Nutrition intervention T Edward Roa Nnabuife " social history E&M Single. Not homeless. Born in [facility]. City: [facility]. State: [place]. Not employed. Retired. Highest education level: high school graduate. Gender of partner(s): male. Alayna Chapman " social history reviewed E&M reviewed today Alayna Chapman " assessment of health literacy ([facility] 2014 Standards, 3C10) Adequate Alayna Chapman " passive cigarette smoke exposure Yes Alayna Chapman " smoking status former smoker Alayna Chapman time of call 04/24/2018 11:41 AM Gayle Serrano drug use, illicit Never Stephanie Isabel " alcohol use Currently Stephanie Isabel " social history E&M Single. Not homeless. Born in [facility]. City: [facility]. State: [place]. Not employed. Retired. Highest education level: high school graduate. Gender of partner(s): male. Stephanie Isabel " social history reviewed E&M reviewed today Stephanie Isabel " assessment of health literacy ([facility] 2014 Standards, 3C10) Adequate Stephanie [...] history E&M Single. Not homeless. Born in [facility]. City: [facility]. State: [place]. Not employed. Retired. Highest education level: high school graduate. Gender of partner(s): male. Alayna Chapman " social history reviewed E&M reviewed today Alayna Chapman " assessment of health literacy ([facility] 2014 Standards, 3C10) Adequate Alayna Chapman " passive cigarette smoke exposure No Alayna Chapman " smoking status former smoker Alayna Chapman " Exercise Program Referral T Alayna Chapman " Weight Management Counseling Provided T Alayna Chapman " Nutrition intervention T Alayna Chapman Exercise Program Referral T Chukwuemeka Uatsdin [facility] " Weight Management Counseling Provided T Chukwuemeka Uatsdin N[facility] " Nutrition intervention T Chukwuemeka Uatsdin Nn[facility]ife " alcohol use Currently Alayna Chapman " social history E&M Single. Not homeless. Born in [facility]. City: [facility]. State: [place]. Not employed. Retired. Highest education level: high school graduate. Gender of partner(s): male. Alayna Chapman " social history reviewed E&M reviewed today Alayna Chapman " assessment of health literacy ([facility] 2014 Standards, 3C10) Adequate Alayna Chapman " passive cigarette smoke exposure No Alayna Chapman " smoking status former smoker Alayna Chapman " assessment of health literacy ([facility] 2014 Standards, 3C10) Adequate Alayna Chapman " drug use, illicit Never Alayna Chapman " alcohol use Currently Alayna Chapman " social history E&M Single. Not homeless. Born in [facility]. City: [facility]. State: [place]. Not employed. Retired. Highest education [...] history E&M Single. Not homeless. Born in [facility]. City: [facility]. State: [place]. Not employed. Retired. Highest education level: high school graduate. Gender of partner(s): male. Vivianmario Sin " social history reviewed E&M reviewed today Vivian Sin " passive cigarette smoke exposure No Vivian Sin " smoking status former smoker Vivian Sin " Exercise Program Referral T Vivian Merrick " Weight Management Counseling Provided T Vivian Merrick " Nutrition intervention T Vivian Sin time of call 12/05/2017 2:22 PM Sera Bob drug use, illicit Never Stephanie Chalo " alcohol use Currently Stephanie Isabel " social history E&M Single. Not homeless. Born in [facility]. City: [facility]. State: [place]. Not employed. Retired. Highest education level: high school graduate. Gender of partner(s): male. Stephanie Isabel " social history reviewed E&M reviewed today Stephanie Chalo " passive cigarette smoke exposure [...] history E&M Single. Not homeless. Born in [facility]. City: [facility]. State: [place]. Not employed. Retired. Highest education level: high school graduate. Gender of partner(s): male. Edward Boyceuinasir " social history reviewed E&M reviewed today Edward Delgado " drug use, illicit Never Nupur Chong " alcohol use Currently Nupur Chong " passive cigarette smoke exposure Yes Nupur Chong " smoking status former smoker Nupur Chong time of call 09/02/2017 9:48 AM Donna Rousencio sunscreen use No Edward Roa Austenuinasir " social history E&M Single. Not homeless. Born in [facility]. City: [facility]. State: [place]. Not employed. Retired. Highest education level: high school graduate. Gender of partner(s): male. Jamarvidhyakavin Uatsdin Danny " social history reviewed E&M reviewed today Abisaijose j Crispin Delgado " passive cigarette smoke exposure Yes Taina Gu " smoking status former smoker Taina Gu time of call 08/11/2017 8:56 AM Donna Rousencio Exercise Program Referral T Titi Calderón " Weight Management Counseling Provided Miguel A Calderón " Nutrition intervention T Titi Calderón " passive cigarette smoke exposure No Taina Riccardo " smoking status former smoker Taina Gu time of call 07/21/2017 4:25 PM Alayna Gu social history E&M Single. Not homeless. Born in [facility]. City: [facility]. State: [place]. Not employed. Retired. Highest education level: high school graduate. Gender of partner(s): male. Oplalinda Crispin Delgado " social history reviewed E&M reviewed today Jamarvidhyashericelinda Crispin Delgado " Exercise Program Referral T [...] Umana " drug use, illicit Never Francesca Stevenson " alcohol use, frequency holidays/special occasions only Francesca Stevenson " alcohol use Currently Francesca Stevenson " smoking status former smoker Francesca Stevenson " passive cigarette smoke exposure No Francesca Gamino drug use, illicit Never Francesca Gamino " alcohol use Never Francesca Gamino " passive cigarette smoke exposure No Francesca Parkerrez " smoking status former smoker Francesca Gamino social history E&M Single. Not homeless. Born in [facility]. City: [facility]. State: [place]. Not employed. Retired. Highest education level: high [...] history E&M Single. Not homeless. Born in [facility]. City: [facility]. State: [place]. Not employed. Retired. Highest education level: high [...] Activities of Daily Living (ADL) Independent [facility] Activities of Daily Living (ADLs, IADLs, etc.) Decrease in ADL [facility] MENTAL STATUS Date Observation Value Provider assessment of judgment and insight E&M intact [facility] " mental status examination: orientation E&M oriented to time, place, and person [facility]ose j Uatsdin [facility] " assessment of mood and affect E&M no depression, anxiety, or agitation [facility] " Generalized Anxiety Disorder Questionnaire - Question 7 3 Sheryl Odonnell " Generalized Anxiety Disorder Questionnaire - Question 6 3 Sheryl Odonnell " Generalized Anxiety Disorder Questionnaire - Question 5 3 Sheryl Odonnell " Generalized Anxiety Disorder Questionnaire - Question 4 3 Sheryl Odonnell " Generalized Anxiety Disorder Questionnaire - Question 3 3 Sheryl Odonnell " Generalized Anxiety Disorder Questionnaire - Question 2 3 Sheryl Odonnell " Generalized Anxiety Disorder Questionnaire - Question 1 3 Sheryl Odonnell assessment of judgment and insight E&M intact [facility] " mental status examination: orientation E&M oriented to time, place, and person [facility] Uatsdin abui " assessment of mood and affect E&M no depression, anxiety, or agitation [facility] Uatsdin [facility] " Generalized Anxiety Disorder Questionnaire - Question 2 0 Francesca Diana " Generalized Anxiety Disorder Questionnaire - Question 1 0 Francesca Diana assessment of judgment and insight E&M intact [facility] Uatsdin [facility] " mental status examination: orientation E&M oriented to time, place, and person [facility] " assessment of mood and affect E&M no depression, anxiety, or agitation [facility]din [facility] " Generalized Anxiety Disorder Questionnaire - Question 2 0 Francesca Orozco Lebron " Generalized Anxiety Disorder Questionnaire - Question 1 0 Francesca Orozco Lebron assessment of judgment and insight E&M intact Edward Uatsdin Nnabui " assessment of mood and affect E&M no depression, anxiety, or agitation [facility]din [facility] " mental status examination: orientation E&M oriented to time, place, and person [facility] Uatsdin abui " Generalized Anxiety Disorder Questionnaire - Question 2 0 Nupur Chong " Generalized Anxiety Disorder Questionnaire - Question 1 0 Nupur Chong assessment of judgment and insight E&M intact Edward U[facility]din [facility] " mental status examination: orientation E&M oriented to time, place, and person [facility] Uatsdin abui " assessment of mood and affect E&M no depression, anxiety, or agitation [facility] Uatsdin [facility] " Generalized Anxiety Disorder Questionnaire - Question 2 0 Stephanie Isabel " Generalized Anxiety Disorder Questionnaire - Question 1 0 Stephanie Isabel assessment of judgment and insight E&M intact Edward U[facility]din [facility] " mental status examination: orientation E&M oriented to time, place, and person [facility] Uatsdin abui " assessment of mood and affect E&M anxious, depressed mood [facility] " Generalized Anxiety Disorder Questionnaire - Question [...] assessment of judgment and insight E&M intact [facility] U[facility]din ab[facility] " mental status examination: orientation E&M oriented to time, place, and person [facility] " assessment of mood and affect E&M anxious, depressed mood [facility] " Generalized Anxiety Disorder Questionnaire - Question 2 0 Stephanie Isabel " Generalized Anxiety Disorder Questionnaire - Question 1 0 Stephanie Isabel assessment of judgment and insight E&M intact [facility] " mental status examination: orientation E&M oriented to time, place, and person [facility] " assessment of mood and affect E&M anxious, depressed mood [facility] mental status examination: orientation E&M alert and oriented Tiny Mckeon " assessment of mood and affect E&M normal affect Tiny Mckeon Generalized Anxiety Disorder Questionnaire - Question 2 0 Hafsa Will " Generalized Anxiety Disorder Questionnaire - Question 1 0 Hafsa Will Generalized Anxiety Disorder Questionnaire - Question 2 0 Violette Welch " Generalized Anxiety Disorder Questionnaire - Question 1 0 Violette Welhc assessment of judgment and insight E&M intact [facility] " mental status examination: orientation E&M oriented to time, place, and person [facility] " assessment of mood and affect E&M anxious, depressed mood [facility] assessment of judgment and insight E&M intact [facility] " mental status examination: orientation E&M oriented to time, place, and person [facility], [place] " assessment of mood and affect E&M anxious, depressed mood [facility] Generalized Anxiety Disorder Questionnaire - Question 2 0 Priya Mars " Generalized Anxiety Disorder Questionnaire - Question 1 0 Priya Mars assessment of judgment and insight E&M intact [facility] " mental status examination: orientation E&M oriented to time, place, and person [facility] [place] " assessment of mood and affect E&M anxious, depressed mood [place] Uatsdin [place] " Generalized Anxiety Disorder Questionnaire - Question 2 0 Alayna Chapman " Generalized Anxiety Disorder Questionnaire - Question 1 0 Alayna Chapman assessment of judgment and insight E&M intact [facility] " mental status examination: orientation E&M oriented to time, place, and person [facility] assessment of mood and affect E&M anxious, depressed mood Chulinda Uatsdin [place] " Generalized Anxiety Disorder Questionnaire - Question 2 0 Stephanie Isabel " Generalized Anxiety Disorder Questionnaire - Question 1 0 Stephanie Chalo assessment of judgment and insight E&M intact [facility] " mental status examination: orientation E&M oriented to time, place, and person Chuvidhyalinda Uatsdin [place] " assessment of mood and affect E&M anxious, depressed mood Chuodilia Uatsdin [place] " Generalized Anxiety Disorder Questionnaire - Question 2 0 Alayna Chapman " Generalized Anxiety Disorder Questionnaire - Question 1 0 Alayna Chapman assessment of judgment and insight E&M intact Edward Boyceui " mental status examination: orientation E&M oriented to time, place, and person [facility] " assessment of mood and affect E&M anxious, depressed mood [facility] " Generalized Anxiety Disorder Questionnaire - Question 2 0 Alayna Chapman " Generalized Anxiety Disorder Questionnaire - Question 1 0 Alayna Chapman assessment of judgment and insight E&M intact Edward [facility] " mental status examination: orientation E&M oriented to time, place, and person [facility] " assessment of mood and affect E&M anxious, depressed mood Gautamlinda U[facility]din [place] " Generalized Anxiety Disorder Questionnaire - [...] [place] " mood (mental status exam) depressed Tomaronald Woods " mental status assessment, speech activity normal flow, normal pace, normal pressure, normal rate, normal tone, normal volume, spontaneous Tomaronald Woods " mental status assessment, motor activity [...] mood and affect E&M anxious, depressed mood [facility] of judgment and insight E&M intact [facility] mental status examination: orientation E&M oriented to time, place, and person [facility] " If any problems checked, how difficult [...] of judgment and insight E&M intact [facility] [place] " mental status examination: orientation E&M oriented to time, place, and person [facility] [place] " assessment of mood and affect E&M no depression, anxiety, or agitation [facility] " Generalized Anxiety Disorder Questionnaire - Question 2 0 Stephanie Isabel " Generalized Anxiety Disorder Questionnaire - Question 1 0 Stephanie Isabel Generalized Anxiety Disorder Questionnaire - Question 2 0 Nupur Chong " Generalized Anxiety Disorder Questionnaire - Question 1 0 Nupur Castillo mental status examination: recall E&M intact for recent and remote events [facility] assessment of judgment and insight E&M intact [facility] " mental status examination: orientation E&M oriented to time, place, and person [facility] " assessment of mood and affect E&M no depression, anxiety, or agitation [facility] " Generalized Anxiety Disorder Questionnaire [...] E&M intact for recent and remote events [facility] " mental status examination: orientation E&M oriented to time, place, and person [facility] " assessment of judgment and insight E&M intact [facility] " assessment of mood and affect E&M no depression, anxiety, or agitation [facility] " Generalized Anxiety Disorder Questionnaire - Question 2 0 Taina Gu " Generalized Anxiety Disorder Questionnaire - Question 1 0 Taina Gu Generalized Anxiety Disorder Questionnaire - Question 2 0 Francesca Gamino " Generalized Anxiety Disorder Questionnaire - Question 1 0 Francesca Gamino assessment of judgment and insight E&M intact Madjordimita Sierra " assessment of mood and affect [...] / Coverage type Covered alliance party ID [place] [employer] HMO Medicare HMO [id number] ADVANCE DIRECTIVES No Information Available TREATMENT PLAN [...] - - Est Patient Exp Problem - 99771 Est Patient Exp Problem - 76692 Finger Stick Glucose Est Patient Exp Problem - 06233 Est Patient Exp Problem - 00849 Est Patient Detailed - 76087 New Patient Intermediate Opth - 13948 Finger Stick Glucose Ear Irrigation Est Patient Exp Problem - 26267 Est Patient Exp Problem - 82969 Retinal Screening Est Patient Well Exam (40 - 64 Yrs) - 30887 Est Patient Detailed - 47688 Est Patient Exp Problem - 25552 Est Patient Exp Problem - 18397 New Patient Comprehensive - 73503 Glucose Stick Est Patient Exp Problem - 84404 Glucose Stick Est Patient Exp Problem - 15864 Prescription Assistance (Non-HIV) Glucose Stick Est Patient Exp Problem - 21726 Endocrinology - Adult - [facility] HEMOGLOBIN A1C - In House Est Patient Exp Problem - 61837 Est Patient Detailed - 34557 Est Patient Exp Problem - 49535 Est Patient Detailed - 10093 [facility] Assessment - Riveter Diagnostic evaluation (no medical) - 03066 Integrated Behavioral Health Assessment (IB) Est Patient Exp Problem - 24011 Est Patient Detailed - 87056 Ofc Vst, Est Level V Est Patient Exp Problem - 09485 Est Patient Exp Problem - 72977 Ofc Vst, Est Level IV Est Patient Exp Problem - 03370 Ofc Vst, Est Level V Est Patient Exp Problem - 94973 Est Patient Detailed - 56516 Est Patient Detailed - 73372 ALBUTEROL INHAL ADMIN THRU DME 1MG Est Patient Detailed - 70234 Est Patient Exp Problem - 03488 Est Patient Exp Problem - 92223 Ear Irrigation Est Patient Exp Problem - 76761 Ofc Vst, Est Level III Est Patient Exp Problem - 57820 HISTORY OF PROCEDURES Procedure Date Procedure Name Provider Procedure Notes Status Finger Stick Glucose Gill Villafuerte completed New Patient Intermediate Opth - 76716 Satinder Harman completed Finger Stick Glucose Satinder Harman completed Ear Irrigation Satinder Harman completed Glucose Stick Gill Villafuerte completed Glucose Stick Satinder Harman completed Glucose Stick Gillkaylin Villafuerte completed HEMOGLOBIN A1C - In House Comfort Trevino completed [facility] Assessment - Riveter Toma Woods completed Diagnostic evaluation (no medical) - 30762 Toma Woods completed ALBUTEROL INHAL ADMIN THRU DME 1MG Deniz Brown completed Ear Irrigation Thea Junior completed GOALS No Information Available [facility] No Information Available
--- OUTSIDE RECORDS SUMMARY | 2019-09-25 17:47 | XMS REPORT ---
Author Author Admin, [place] Organization Unknown Address Unknown Phone Unavailable PROBLEMS [...] active Edward Roa N[place]uife Abdominal distension [facility] Mood Disorder, NOS active [place] Suicidal ideation active [facility] [place] Depression, major active [facility] Roa [place] COPD with exacerbation active Jamarlinda Roa [place] BMI 50.0-59.9 completed - Tiny Vazquez Mckeon Chronic bronchitis active [facility] [place] Breast abnormal findings active [facility] Roa [place] Otitis media, acute completed - Titi Kaitlynn [...] Location Encounter Diagnosis - Ambulatory Encounter Kimberly Jorgensen [facility] UNK - Ambulatory Encounter Kimberly Jorgensen [facility] UNK - Ambulatory Encounter Kimberly Pace [facility] UNK - Ambulatory Encounter Edward Roa Nnabjaimie Whiteabuinasir [facility] UNK - Ambulatory Encounter Edward Roa Nnabuinasir Leon Judaism Nnabuife [facility] UNK - Ambulatory Encounter Edward Whiteabuinasir Whiteabuife [facility] UNK - Ambulatory Encounter Gill Whiteabuinasir Odonnell [facility] Constipation, drug induced - Ambulatory Encounter Edward Whiteabjaimie Marroquin MedAdherence, [facility] UNK - Ambulatory Encounter Edward Langley MedAdherence [facility] UNK - Ambulatory Encounter Violette Yuri Latricia Martin [facility] UNK - Ambulatory Encounter Edward Whiteabuinasir Whiteabuinasir [facility] UNK - Ambulatory Encounter LSJ Lab Support Desktop LinkLogic Edward Whiteabjaimie Whiteabuife [facility] UNK - Ambulatory Encounter Fax Status LinkLogic [facility] UNK - Ambulatory Encounter Fax Status [facility] - Ambulatory Encounter Fax Status [facility] UNK - Ambulatory Encounter Abisaijose j Judaism Nnabuife Edward Judaism Nnabuife [facility] UNK - Ambulatory Encounter Churameshjose j Judaism Nnabuife Chuodilia Judaism Nnabuife [facility] UNK - Ambulatory Encounter Churameshjose j Judaism Nnabuife Edward Judaism Nnabuife [facility] UNK - Ambulatory Encounter Satinder Leon Judaism Nnabuife Edward Whiteabjaimie [facility], internal - Ambulatory Encounter Comfort Marroquin MedAdherence, [facility] UNK - Ambulatory Encounter Comfort Langley MedAdherence [facility] UNK - Ambulatory Encounter Kimberly Gagnon [place] UNK - Ambulatory Encounter Gill Marroquin MedAdherence, [facility] UNK - Ambulatory Encounter Edward Magañaian Nnabuife Edward Judaism Nnabuife [facility] UNK - Ambulatory Encounter Edward Judaism Cindyabuife Edward Judaism Nnabuife [facility] UNK - Ambulatory Encounter Gill Whiteabmelitafe Edward Roa Nnabuinasir Bergmanirez [facility] UNK - Ambulatory Encounter Comfort Ellsworth MedAdherence, [facility] UNK - Ambulatory Encounter Comfort Marroquin MedAdherence, [facility] UNK - Ambulatory Encounter Edward Whiteabjaimie Whiteabuife LinkLogic [facility] UNK - Ambulatory Encounter Comfort Hernandez MedAdherence [facility] UNK - Ambulatory Encounter Fax Status LinkLogic [facility] UNK - Ambulatory Encounter Fax Status LinkLogic [facility] UNK - Ambulatory Encounter Fax Status LinkLogic [facility] UNK - Ambulatory Encounter Edward Whiteabuinasir Roa Nnabuife LinkLogic [facility] UNK - Ambulatory Encounter Satinder Whiteabuife Edward Roa Nnabuife [facility] Hypokalemia, mild - Ambulatory Encounter Edward Whiteabuife Edward Roa Nnabuife [facility] UNK - Ambulatory Encounter LSJ Lab Support Desktop LinkLogic Edward Whiteabuinasir Roa Nnabuife [facility] UNK - Ambulatory Encounter Fax Status LinkLogic [facility] UNK - Ambulatory Encounter Fax Status LinkLogic [facility] UNK - Ambulatory Encounter F[facility] Status [facility]K - Ambulatory Encounter Fax Status [facility] UNK - Ambulatory Encounter Abisaijose j Judaism Nnabuife Abisaijose j Judaism Nnabuife [facility] UNK - Ambulatory Encounter Abisaijose j Judaism Nnabuife Abisaijose j Judaism Nnabuife [facility] UNK - Ambulatory Encounter Abisaijose j Judaism Nnabuife Edward Judaism Nnabuife [facility] UNK - Ambulatory Encounter Satinder Roa Nnabuife Edward Roa Nnabuife Sheryl Odonnell [facility] UNK - Ambulatory Encounter Comfort Pedersen MedAdherence [facility] UNK - Ambulatory Encounter Comfort Christianson MedAdherence [facility] UNK - Ambulatory Encounter Tiara Christianson MedAdherence [facility] UNK - Ambulatory Encounter Edward Whiteabuinasir Roa Nnabuife LinkLogic [facility] UNK - Ambulatory Encounter Osiris Gordon [facility] - [facility]ulatory Encounter Edward Whiteabuife Edward Judaism Nnabuife LinkLogic [facility] UNK - Ambulatory Encounter Comfort Christianson MedAdherence [facility] UNK - Ambulatory Encounter Abisaijose j Judaism Nnabuife Abisaijose j Judaism Nnabuife [facility] UNK - Ambulatory Encounter Churameshjose j Judaism Nnabuife Abisaijose j Judaism Nnabuife [facility] UNK - Ambulatory Encounter Churameshjose j Judaism Nnabuife Abisaijose j Judaism Nnabuife [facility] UNK - Ambulatory Encounter Satinder Leon Judaism Nnabuife Edward Judaism Nnabuife [facility] Chronic pain syndrome - Ambulatory Encounter Edward Judaism Nnabuife Edward Judaism Nnabuife [facility] UNK - Ambulatory Encounter LSJ Lab Support Desktop LinkLogic Edward Judaism Nnabuife Edward Judaism Nnabuife [facility] UNK - Ambulatory Encounter Abisaijose j Judaism Nnabuife Abisaijose j Judaism Nnabuife [facility] UNK - Ambulatory Encounter Edward Judaism Nnabuife Edward Judaism Nnabuife [facility] UNK - Ambulatory Encounter Comfort Leon Judaism Nnabuife Edward Judaism Nnabuife [facility] Well woman examCerumen impaction, bilateral - Ambulatory Encounter Satinder Christianson MedAdherence [facility] UNK - Ambulatory Encounter Satinder Christianson MedAdherence Eusebia Gagnon [place] UNK - Ambulatory Encounter Satinder Christianson MedAdherence Edward Roa Nnabuife Gautamwlinda Judaism Nnabuife Eusebia Gagnon [facility] UNK - Ambulatory Encounter Satinder Christianson MedAdherence [facility] UNK - Ambulatory Encounter Tiara Christianson MedAdherence Alayna Gu [facility] UNK - Ambulatory Encounter Edward Roa Nnabuife Gautamwlinda Magañaian Nnabuife [facility] - Ambulatory Encounter Edward Roa Nnabuife Gautamwlinda Magañaian Nnabuife [facility] UNK - Ambulatory Encounter Satinder Christianson MedAdherence [facility] UNK - Ambulatory Encounter Satinder Harman [facility] - Ambulatory Encounter Fax Status LinkLogic [facility] UNK - Ambulatory Encounter Fax Status LinkLogic [facility] UNK - Ambulatory Encounter Fax Status LinkLogic [facility] UNK - Ambulatory Encounter Fax Status LinkLogic [facility] UNK - Ambulatory Encounter Fax Status [facility] UNK - Ambulatory Encounter Fax Status [facility] UNK - Ambulatory Encounter Satinder [facility] UNK - Ambulatory Encounter Tiara Christianson MedAdherence Satinder Engel [facility] UNK - Ambulatory Encounter Kimberly Leon Judaism Nnabuife Edward Judaism Nnabuife [facility] UNK - Ambulatory Encounter Satinder Ghazal Christianson MedAdherence [facility] UNK - Ambulatory Encounter Satinder Harman LinkLog [facility] UNK - Ambulatory Encounter Fax Status [facility] UNK - Ambulatory Encounter Lo Sierra Christianson MedAdherence [facility] UNK - Ambulatory Encounter Edward Roa Nnabuife Edward Judaism Nnabuife LinkLogic [facility] UNK - Ambulatory Encounter Chuodilia Judaism Nnabuife Gautamwlinda Judaism Nnabuife LinkLogic [facility] UNK - Ambulatory Encounter Chuvidhyawlinda Judaism Nnabuife Jamarkwuemejose j Judaism Nnabuife [facility] UNK - Ambulatory Encounter Chuodilia Judaism Nnabuife Chukwuemejose j Judaism Nnabuife [facility] UNK - Ambulatory Encounter Chuodilia Judaism Nnabuife Jamarkwlinda Judaism Nnabuife [facility] UNK - Ambulatory Encounter [place] Leon Judaism Nnabuife Jamarkwfabiánmejose j Judaism Nnabuife [facility] BMI 60.0-69.9, adultBMI 50.0-59.9 - Ambulatory Encounter Alaynataye Nava [facility] UNK - Ambulatory Encounter Kayla Ruel [facility] UNK - Ambulatory Encounter Kayla Ruel [facility] UNK - Ambulatory Encounter Edward Whiteabuinasir Kayla Ruel [facility] UNK - Ambulatory Encounter Satinder Christianson MedAdherence Kayla Reich [facility] UNK - Ambulatory Encounter Fax Status LinkLogic [facility] UNK - Ambulatory Encounter Fax Status LinkLogic [facility] UNK - Ambulatory Encounter Fax Status [facility] UNK - Ambulatory Encounter Fax Status LinkLogic [facility] UNK - Ambulatory Encounter Bhavya Pedersen MedAdherence Clementine Velasquez [facility] UNK - Ambulatory Encounter Edward Whiteabuinasir [facility] UNK - Ambulatory Encounter Edward Whiteabuinasir [facility] UNK - Ambulatory Encounter Edward Whiteabuife [facility] UNK - Ambulatory Encounter Comfort Whiteabuife Edward Judaism Nnabuife Hafsa Will [facility] Dyspnea at restCHF exacerbation - Ambulatory Encounter Tiny Vazquez Mckeon Tiny Vazquez Mckeon [facility] UNK - Ambulatory Encounter Tiny Vazquez Mckeon Tiny Vazquez Mckeon Violette Pool [facility] BMI 50.0-59.9BMI 60.0-69.9, adult - Ambulatory Encounter Kayla Ruel [facility] UNK - Ambulatory Encounter Satinder Christianson [facility] Francesca Potts [facility] Contact Center UNK - Ambulatory Encounter Violette Pool Kayla Lipscomb [facility] UNK - Ambulatory Encounter Edward Judaism Nnabuife Edward Judaism Nnabuife [facility] UNK - Ambulatory Encounter Chuodilia Judaism Nnabuife Edward Judaism Nnabuife [facility] UNK - Ambulatory Encounter Chuodilia Judaism Nnabuife Edward Judaism Nnabuife [facility] UNK - Ambulatory Encounter Chuodilia Judaism Nnabuife Edward Judaism Nnabuife [facility] UNK - Ambulatory Encounter Chuodilia Judaism Nnabuife Edward Judaism Nnabuife [facility] UNK - Ambulatory Encounter Gill Maagñaian Nnabuife Edward Judaism Nnabuife Violette Pool Hafsa Mottaez [facility] Acute upper respiratory infection - Ambulatory Encounter [facility]havya [facility] - Ambulatory Encounter Satinder Harman [facility] UNK - Ambulatory Encounter Bhavya Pedersen [facility] UNK - Ambulatory Encounter Comfort Trevino [facility] UNK - Ambulatory Encounter [facility] Ambulatory Encounter Fax Status [facility] UNK - Ambulatory Encounter Fax Status [facility] UNK - Ambulatory Encounter Fax Status [facility] UNK - Ambulatory Encounter Alayna Chapman [facility] UNK - Ambulatory Encounter Edward Magañaian Nnabuife Edward Judaism Nnabuife [facility] UNK - Ambulatory Encounter Edward Judaism Nnabuife Edward Judaism Nnabuife [facility] UNK - Ambulatory Encounter Chuodilia Judaism Nnabuife Edward Judaism Nnabuife [facility] UNK - Ambulatory Encounter Satinder Ghazal Leon Judaism Nnabuife Edward Judaism Nnabuife Priya Mars [facility] UNK - Ambulatory Encounter Parris Oleary [facility] UNK - Ambulatory Encounter Chukkavin Judaism Nnabuife Chukwuemejose j Judaism Nnabuife LinkLogic [facility] UNK - Ambulatory Encounter Bhavya Pedersen MedAdherence Kirsten Roldankwuemeka Judaism Nnabuife Chukwuemejose j Judaism Nnabuife Raysa Potts [facility] Contact Center UNK - Ambulatory Encounter Chukwlinda Judaism Nnabuife Chukwuemejose j Judaism Nnabuife [facility] UNK - Ambulatory Encounter Chukwlinda Judaism Nnabuife Chukwuekathya Judaism Nnabuife [facility] UNK - Ambulatory Encounter Chukwlinda Judaism Nnabuife Chukwuekathya Judaism Nnabuife [facility] UNK - Ambulatory Encounter Chukwlinda Judaism Nnabuife Chukwuemejose j Judaism Nnabuife [facility] UNK - Ambulatory Encounter Gill Roldankwuemejose j Judaism Nnabuife Chukwuemejose j Judaism Nnabuife [facility] UNK - Ambulatory Encounter Bhavya Pedersen MedAdherence [facility] UNK - Ambulatory Encounter Kayla Serrano [facility] Contact Center UNK - Ambulatory Encounter Chukwlinda Judaism Nnabuife Chukwuekathya Judaism Nnabuife [facility] UNK - Ambulatory Encounter Tab Chang [facility] UNK - Ambulatory Encounter Chukwlinda Judaism Nnabuife Chukwuemeka Judaism Nnabuife [facility] UNK - Ambulatory Encounter Chukwuemeka Judaism Nnabuife Chukwuemeka Judaism Nnabuife [facility] UNK - Ambulatory Encounter LSJ Lab Support Desktop LinkLogic Tab Roldankwuemejose j Judaism Nnabuife Chukwuemeka Judaism Nnabuife [facility] UNK - Ambulatory Encounter Chukwuemeka Judaism Nnabuife Chukwuemeka Judaism Nnabuife [facility] UNK - Ambulatory Encounter Chukwuemeka Judaism Nnabuife Chukwuemeka Judaism Nnabuife [facility] UNK - Ambulatory Encounter Chukwuemeka Judaism Nnabuife Chukwuemeka Judaism Nnabuife [facility] UNK - Ambulatory Encounter Comfort Christianson [facility] Chukwuemejose j Judaism Nnabuife Chukwuemeka Judaism Nnabuife Marielena Reich [facility] Screening for diabetes mellitusScreening for lipid disorder - Ambulatory Encounter Chukwuemejose j Judaism Nnabuife Chukwuemeka Judaism Nnabuife [facility] GERD - Ambulatory Encounter Chukwlinda Judaism Nnabuife Chukwuemeka Judaism Nnabuife Stephanie Isabel [facility] UNK - Ambulatory Encounter Chukwuemeka Judaism Nnabuife Chukwuemeka Judaism Nnabuife [facility] UNK - Ambulatory Encounter Tab Catalan Riccardo Chukwuemejose j Judaism Nnabuife Chukwuemejose j Judaism Nnabuife Vivian Toro Toshia Mary [facility] UNK - Ambulatory Encounter Chukwuekathya Judaism Nnabuife Chukwuemejose j Judaism Nnabuife [facility] UNK - Ambulatory Encounter Chukwuemejose j Judaism Nnabuife Chukwuemejose j Judaism Nnabuife [facility] UNK - Ambulatory Encounter Chukwuemejose j Judaism Nnabuife Chukwuemejose j Judaism Nnabuife [facility] UNK - Ambulatory Encounter Comfort Roldankwuekathya Judaism Nnabuife Chukwuemejose j Judaism Nnabuife [facility] Diabetes mellitus type II - Ambulatory Encounter Chukwuemejose j Judaism Nnabuife Chukwuemejose j Judaism Nnabuife LinkLogic [facility] UNK - Ambulatory Encounter Chukwuemejose j Judaism Nnabuife Chukwuemejose j Judaism Nnabuife LinkLogic [facility] UNK - Ambulatory Encounter Loly Winslow [facility] UNK - Ambulatory Encounter Chukwuemejose j Judaism Nnabuife Chukwuemejose j Judaism Nnabuife LinkLogic [facility] UNK - Ambulatory Encounter Chukwuemejose j Judaism Nnabuife Chukwuemeka Judaism Nnabuife [facility] UNK - Ambulatory Encounter Chukwuemejose j Judaism Nnabuife Chukwuemeka Judaism Nnabuife [facility] UNK - Ambulatory Encounter Chuodilia Judaism Nnabuife Edward Judaism Nnabuife [facility] UNK - Ambulatory Encounter Chuodilia Judaism Nnabuife Edward Judaism Nnabuife [facility] UNK - Ambulatory Encounter Satinder Leon Judaism Nnabuife Edward Judaism Nnabuife [facility] UNK - Ambulatory Encounter Tiara Christianson MedAdherence [facility] UNK - Ambulatory Encounter Bhavya Pedersen MedAdherence [facility] UNK - Ambulatory Encounter Bhavya Pedersen MedAdherence LinkLogic [facility] UNK - Ambulatory Encounter Titi Kaitlynn Titi Kaitlynn LinkLogic [facility] UNK - Ambulatory Encounter Chuodilia Judaism Nnabuife Edward Judaism Nnabuife LinkLogic [facility] UNK - Ambulatory Encounter Chuodilia Judaism Nnabuife Edward Judaism Nnabuife LinkLogic [facility] UNK - Ambulatory Encounter Chuodilia Judaism Nnabuife Edward Judaism Nnabuife [facility] UNK - Ambulatory Encounter Chuodilia Judaism Nnabuife Edward Judaism Nnabuife [facility] UNK - Ambulatory Encounter Chuodilia Judaism Nnabuife Edward Judaism Nnabuife [facility] UNK - Ambulatory Encounter Edward Roa Nnabuife Edward Judaism Nnabuife [facility] UNK - Ambulatory Encounter Comfort Roa Nnabuife Edward Judaism Nnabuife [facility] Abdominal distensionAbdominal pain, chronicAscitesUrinary retention - Ambulatory Encounter Tiara Christianson MedAdherence [facility] UNK - Ambulatory Encounter Tiara Christianson [facility] - Ambulatory Encounter Tiara Christianson [facility]Adherence [facility] UNK - Ambulatory Encounter Comfort Trevino [facility] UNK - Ambulatory Encounter Mae Rashaun [facility] UNK - Ambulatory Encounter Fax Status Link[facility]ic [facility] UNK - Ambulatory Encounter Fax Status LinkLogic [facility] UNK - Ambulatory Encounter Fax Status LinkLogic [facility] UNK - Ambulatory Encounter Fax Status LinkLogic [facility] UNK - Ambulatory Encounter Fax Status LinkLogic [facility] UNK - Ambulatory Encounter Fax Status LinkLogic [facility] UNK - Ambulatory Encounter Edward Roa Nnabjaimie Leon Judaism Nnabuife [facility] UNK - Ambulatory Encounter Edward Roa Nnabuinasir Leon Judaism Nnabuife [facility] UNK - Ambulatory Encounter Edward Judaism Nnabuife Edward Judaism Nnabuife [facility] UNK - Ambulatory Encounter Toma Woodsrony Woods [facility] Mood Disorder, NOS - Ambulatory Encounter Lo Leon Judaism Nnabuife Edward Judaism Nnabuife Vivian Matthews [facility] Depression, majorSuicidal ideation - Ambulatory Encounter Comfort [facility] - [facility] En[facility] Tiara [facility] UNK - Ambulatory Encounter Bhavya Pedersen MedAdherence [facility] UNK - Ambulatory Encounter Bhavya Pedersen [facility]herence [facility] - Ambulatory Encounter Edward Judaism Nnabuife Edward Judaism Nnabuife [facility] UNK - Ambulatory Encounter Edward Judaism Nnabuife Edward Judaism Nnabuife [facility] UNK - Ambulatory Encounter Edward Judaism Nnabuife Edward Judaism Nnabuife [facility] UNK - Ambulatory Encounter Edward Judaism Nnabuife Edward Judaism Nnabuife [facility] UNK - Ambulatory Encounter Edward Judaism Nnabuife Edward Judaism Nnabuife [facility] UNK - Ambulatory Encounter Gill Roa Nnabuife Edward Judaism Nnabuife [facility] UNK - Ambulatory Encounter Loly Winslow [facility] UNK - Ambulatory Encounter Tiara Christianson MedAdherence [facility] UNK - Ambulatory Encounter Chuodilia Magañaian Nnabuife Edward Magañaian Nnabuife [facility] UNK - Ambulatory Encounter Bhavya Pedersen MedAdherence [facility] UNK - Ambulatory Encounter Bhavya Pedersen MedAdherence LinkLog [facility] UNK - Ambulatory Encounter Chuodilia Judaism Nnabuife Edward Judaism Nnabuife Tab Matthews [facility] UNK - Ambulatory Encounter Comfort Trevino [facility] UNK - Ambulatory Encounter Edward Judaism Nnabuife Edward Judaism Nnabuife [facility] UNK - Ambulatory Encounter Chuodilia Judaism Nnabuife Edward Judaism Nnabuife [facility] UNK - Ambulatory Encounter Chuodilia Judaism Nnabuife Edward Judaism Nnabuife [facility] UNK - Ambulatory Encounter Chuodilia Judaism Nnabuife Edward Judaism Nnabuife [facility] UNK - Ambulatory Encounter Comfort Whiteabuinasir Whiteabuife [facility] COPD with exacerbation - Ambulatory Encounter Tiara Sammy MedAdherence [facility] UNK - Ambulatory Encounter Tiara Christianson MedAdherence Loly Kaminskicey [facility] Services UNK - Ambulatory Encounter Tiara Sammy MedAdherence [facility] UNK - Ambulatory Encounter Edward Roa Nnabuife [facility] UNK - Ambulatory Encounter Edward Whiteabuife [facility] UNK - Ambulatory Encounter Gill Whiteabuinasir Whiteabuife [facility] UNK - Ambulatory Encounter Loly [facility] - Ambulatory Encounter Edward Whiteabuife LinkLogic [facility] UNK - Ambulatory Encounter Loly Goldy Donna Sabiha [facility] UNK - Ambulatory Encounter Fax [facility] - Ambulatory Encounter Fax Status [facility] UNK - Ambulatory Encounter Fax Status [facility] UNK - Ambulatory Encounter Fax Status [facility] UNK - Ambulatory Encounter Fax Status [facility]ic [facility] UN[facility] - Ambulatory Encounter Fax Status Link[facility]ic [facility] UNK - Ambulatory Encounter Titi Kaitlynn Titi Kaitlynn [facility] UNK - Ambulatory Encounter Titi Kaitlynn Titi Kaitlynn [facility] UNK - Ambulatory Encounter Titi Kaitlynn Titi Kaitlynn [facility] UNK - Ambulatory Encounter Lo Gu Titi Kaitlynn Titi [facility] MUSCLE SPASMEAR PAIN, RIGHTCandidal vaginitisOtitis media, acute - Ambulatory Encounter [facility]atinder [facility] UNK - Ambulatory Encounter Fax Status [facility] UNK - Ambulatory Encounter Fax Status [facility] UN[facility] - Ambulatory Encounter Fax Status [facility] UNK - Ambulatory Encounter Bhavya Palacio [facility] UNK - Ambulatory Encounter Edward Roa [place] Jamarkwuekathya Magañaian Nnabuife [facility] UNK - Ambulatory Encounter Satinder Roldankwuemeka Judaism [place] Jamarkwuekathya Magañaian [place] Ayanna Matthews [facility] Breast abnormal findingsChronic bronchitisBMI 50.0-59.9 - Ambulatory Encounter Comfort Trevino LinkLogic [facility] UNK - Ambulatory Encounter Tiara Christianson MedAdherence [facility] UNK - Ambulatory Encounter Tiara Christianson MedAdherence LinkLog[facility] UNK - Ambulatory Encounter Bhavay Pedersen MedAdherence [facility] UNK - Ambulatory Encounter Bhavya Pedersen MedAdherence Link[facility] UNK - Ambulatory Encounter Maddarryl Sierra [facility] UNK - Ambulatory Encounter Lo Esquivel Link[facility] UNK - Ambulatory Encounter Bhavya Pedersen MedAdherence [facility] UNK - Ambulatory Encounter Maddarryl Sierra [facility] UNK - Ambulatory Encounter Lo Sierra [facility] UNK - Ambulatory Encounter Madhumitkaylin Sierra [facility] UNK - Ambulatory Encounter Nupur Chong [facility] UNK - Ambulatory Encounter Nupur Chong [facility] UNK - Ambulatory Encounter Edwin Umana [facility] UNK - Ambulatory Encounter Edwin Umana [facility] UNK - Ambulatory Encounter Edwin Umana [facility] UNK - Ambulatory Encounter Comfort Gamino [facility] MORBID OBESITYOtitis media, acute - Ambulatory Encounter Fabricio Beard [facility] UNK - Ambulatory Encounter Lo Esquivel [facility] UNK - Ambulatory Encounter Lo Hammondsierrez [facility] Candidal vaginitis - Ambulatory Encounter Lo [facility]quivel [facility] UNK - Ambulatory Encounter Breana Rosario [facility] UNK - Ambulatory Encounter Breana Rosario [facility] UNK - Ambulatory Encounter Mary Soto [facility] UNK - Ambulatory Encounter Fabricio Beard [facility] UNK - Ambulatory Encounter B[facility] UNK - Ambulatory [facility] UNK - Ambulatory Encounter [facility]ricio [facility] UNK - Ambulatory Encounter Gita Dewey [facility] UNK - Ambulatory Encounter Comfort Trevino [facility] UNK - Ambulatory Encounter Bhavya Pedersen [facility]ulatory Encounter Comfort Trevino [facility] UNK - Ambulatory Encounter Carmelina Gu [facility] UNK - Ambulatory Encounter Jan Johnson [facility] UNK - Ambulatory Encounter Fax Status LinkLogic [facility] UNK - Ambulatory Encounter Fax Status LinkLogic [facility] UNK - Ambulatory Encounter Fax Status LinkLogic [facility] UNK - Ambulatory Encounter Deniz Lancasteradadian Lira [facility] UNK - Ambulatory Encounter Bhavya Pedersen MedAdherence [facility] UNK - Ambulatory Encounter Comfort Trevino LinkLogic [facility] UNK - Ambulatory Encounter Comfort Trevino [facility] UNK - Ambulatory Encounter Comfort Trevino LinkLogic [facility] UNK - Ambulatory Encounter Fax Status LinkLogic [facility] UNK - Ambulatory Encounter Fax Status LinkLogic [facility] UNK - Ambulatory Encounter Comfort Trevino LinkLogic [facility] UNK - Ambulatory Encounter Fax Status LinkLogic [facility] UNK - Ambulatory Encounter Fax Status LinkLogic [facility] UNK - Ambulatory Encounter Comfort Trevino LinkLog[facility] UNK - Ambulatory Encounter Comfort Trevino LinkLog[facility] UNK - Ambulatory Encounter Comfort Trevino LinkLogic [facility] UNK - Ambulatory Encounter Comfort Trevino [facility] UNK - Ambulatory Encounter Kimberly Jorgensen Bhavya Bermudezo MedAdherence Comfort Feldman [facility] UNK - Ambulatory Encounter Kimberly Trevino [facility] UNK - Ambulatory Encounter Tab Chang [facility] UNK - Ambulatory Encounter Fax Status LinkLogic [facility] UNK - Ambulatory Encounter Fax Status LinkLogic [facility] UNK - Ambulatory Encounter Fax Status LinkLogic [facility] UNK - Ambulatory Encounter Kimberly Trevino [facility] UNK - Ambulatory Encounter Comfort Trevino [facility] UNK - Ambulatory Encounter Comfort TorresLogedward [facility] - Ambulatory Encounter Fax Status LinkLogic [facility] UNK - Ambulatory Encounter Jenny Gaston [facility] UNK - Ambulatory Encounter Fax Status LinkLogic [facility] UNK - Ambulatory Encounter Fax Status LinkLogic [facility] UNK - Ambulatory Encounter Comfort Trevino Link[facility]ic [facility] UNK - Ambulatory Encounter Kimberly Trevino [facility] UNK - Ambulatory Encounter Comfort TorresLogedward [facility] UNK - Ambulatory Encounter Jenny Gaston [facility] UNK - Ambulatory Encounter Gosia Trevino [facility] UNK - Ambulatory Encounter Comfort TorresLogedward Mayes [facility] - [facility]ulatory Encounter Comfort Tellez [facility] CHRONIC OBSTRUCTIVE PULMONARY DISEASE, ACUTE EXACERBATIONCHFSLEEP APNEA - Ambulatory Encounter Gill Villafuerte [facility]K - Ambulatory Encounter Fax Status Link[facility] UNK - Ambulatory Encounter Fax Status Link[facility] UNK - Ambulatory Encounter Fax Status [facility] UNK - Ambulatory Encounter Fax Status [facility] UNK - Ambulatory Encounter Fax Status Link[facility] UNK - Ambulatory Encounter Fax Status [facility] UNK - Ambulatory Encounter Fax Status [facility] UNK - Ambulatory Encounter Jenny [facility] UNK - Ambulatory Encounter Thea Lambshmorgan Caputoserenakaylin Rosalinda [facility] LOW BACK PAIN - Ambulatory Encounter Sabra Mitchell [facility] UNK - Ambulatory Encounter Sabra Stephen [facility] UNK - Ambulatory Encounter Ernesto Gaffney [facility] DEPENDENT EDEMA, LEGS - Ambulatory Encounter Bhavya Nuvia MedAdherence [facility] UNK - Ambulatory Encounter Bahvya Pedersen MedAdherence LinkLogic [facility] UNK - Ambulatory Encounter Jonelle [facility] UNK - Ambulatory Encounter Jonelle [facility] UNK - Ambulatory Encounter Jonelle [facility] UNK - Ambulatory Encounter Jonelle [facility] UNK - Ambulatory Encounter Jonelle [facility] UNK - Ambulatory Encounter Malena Isabel [facility] UNK - Ambulatory Encounter Ernesto Matthews [facility] EAR PAIN, RIGHTBLURRED VISIONHEARING DEFICIT - Ambulatory Encounter [facility] P[facility] UNK - Ambulatory Encounter [facility] Preload Link[facility] UNK - Ambulatory Encounter [facility] Preload [facility] UNK - Ambulatory Encounter [facility] Preload [facility] UNK - Ambulatory Encounter [facility] Preload [facility] UNK - Ambulatory Encounter [facility] Preload LinkLogic [facility] UNK - Ambulatory Encounter [facility] Preload [facility]Logic [facility] UNK - Ambulatory Encounter [facility] Preload [facility]ic [facility] UNK - Ambulatory Encounter [facility] Preload [facility] UNK - Ambulatory Encounter [facility] Preload [facility] UNK - Ambulatory Encounter [facility] Preload LinkLogic [facility] UNK - Ambulatory Encounter [facility] Preload [facility]ic [facility] UNK - Ambulatory Encounter [facility] Preload [facility] UNK - Ambulatory Encounter [facility] Preload [facility] UNK - Ambulatory Encounter [facility] Preload [facility] UNK - Ambulatory Encounter [facility] Preload [facility] UNK - Ambulatory Encounter [facility] Preload [facility] UNK - Ambulatory Encounter [facility] Preload [facility] UNK - Ambulatory Encounter [facility] Preload [facility] UNK - Ambulatory Encounter [facility] Preload [facility]Logic [facility] UNK - Ambulatory Encounter [facility] Preload [facility] UNK - Ambulatory Encounter [facility] Preload [facility] UNK - Ambulatory Encounter [facility] Preload [facility] UNK - Ambulatory Encounter [facility] Preload [facility] UNK - Ambulatory Encounter [facility] Preload [facility] UNK - Ambulatory Encounter [facility] Preload [facility] UNK - Ambulatory Encounter [facility] Preload [facility] UNK - Ambulatory Encounter [facility] Preload [facility] UNK - Ambulatory Encounter [facility] Preload [facility] UNK - Ambulatory Encounter [facility] Preload [facility] UNK - Ambulatory Encounter [facility] Preload [facility] UNK - Ambulatory Encounter [facility] Preload [facility] UNK - Ambulatory Encounter [facility] Preload [facility]Logic [facility] UNK - Ambulatory Encounter [facility] Preload [facility] UNK - Ambulatory Encounter [facility] Preload [facility]Logic [facility] UNK - Ambulatory Encounter [facility] Preload [facility] UNK - Ambulatory Encounter [facility] Preload [facility] UNK - Ambulatory Encounter [facility] Preload LinkLogic [facility] UNK - Ambulatory Encounter [facility] Preload [facility]ic [facility] UNK - Ambulatory Encounter [facility] Preload [facility]ic [facility] UNK - Ambulatory Encounter [facility] Preload [facility]Logic [facility] UNK - Ambulatory Encounter [facility] Preload [facility]Logic [facility] UNK - Ambulatory Encounter [facility] Preload [facility]Logic [facility] UNK - Ambulatory Encounter [facility] Preload [facility] UNK - Ambulatory Encounter [facility] Preload [facility]ic [facility] UNK - Ambulatory Encounter [facility] Preload [facility]Log[facility] UNK - Ambulatory Encounter [facility] Preload [facility] UNK - Ambulatory Encounter [facility] Preload [facility]Logic [facility] UNK - Ambulatory Encounter [facility] Preload [facility] UNK - Ambulatory Encounter [facility] Preload [facility] UNK - Ambulatory Encounter [facility] Preload [facility] UNK - Ambulatory Encounter [facility] Preload [facility] UNK - Ambulatory Encounter [facility] Preload [facility] UNK - Ambulatory Encounter [facility] Preload [facility] UNK - Ambulatory Encounter [facility] Preload [facility] UNK - Ambulatory Encounter [facility] Preload LinkLogic [facility] UNK - Ambulatory Encounter [facility] Preload [facility] UNK - Ambulatory Encounter [facility] Preload [facility] UNK - Ambulatory Encounter [facility] Preload [facility] UNK - Ambulatory Encounter [facility] Preload [facility] UNK - Ambulatory Encounter [facility] Preload LinkLogic [facility] UNK - Ambulatory Encounter [facility] Preload [facility] UNK - Ambulatory Encounter [facility] Preload [facility] UNK - Ambulatory Encounter [facility] Preload [facility] UNK - Ambulatory Encounter [facility] Preload [facility] UNK - Ambulatory Encounter [facility] Preload [facility]ic [facility] UNK - Ambulatory Encounter [facility] Preload [facility] UNK - Ambulatory Encounter Sharpetaniya Sharpe Vo Link[facility] UNK - Ambulatory Encounter [facility] Preload [facility] UNK - Ambulatory Encounter [facility] Preload [facility] UNK - Ambulatory Encounter [facility] Preload [facility] UNK - Ambulatory Encounter [facility] Preload [facility] UNK - Ambulatory Encounter [facility] Preload [facility] UNK - Ambulatory Encounter [facility] Preload [facility] UNK - Ambulatory Encounter [facility] Preload [facility] UNK - Ambulatory Encounter [facility] Preload [facility] UNK - Ambulatory Encounter [facility] Preload [facility] UNK - Ambulatory Encounter [facility] Preload [facility] UNK - Ambulatory Encounter [facility] Preload [facility] UNK - Ambulatory Encounter [facility] Preload [facility] UNK - Ambulatory Encounter [facility] Preload [facility] UNK - Ambulatory Encounter [facility] Preload [facility] UNK - Ambulatory Encounter [facility] Preload [facility] UNK - Ambulatory Encounter [facility] Preload [facility] UNK - Ambulatory Encounter [facility] Preload [facility] UNK - Ambulatory Encounter [facility] Preload [facility] UNK - Ambulatory Encounter [facility] Preload [facility] UNK - Ambulatory Encounter [facility] Preload [facility] UNK - Ambulatory Encounter [facility] Preload [facility] UNK - Ambulatory Encounter [facility] Preload [facility] UNK - Ambulatory Encounter [facility] Preload [facility] UNK - Ambulatory Encounter [facility] Preload [facility] UNK - Ambulatory Encounter [facility] Preload [facility] UNK - Ambulatory Encounter [facility] Preload [facility] UNK - Ambulatory Encounter [facility] Preload [facility] UNK - Ambulatory Encounter [facility] Preload [facility] UNK - Ambulatory Encounter [facility] Preload [facility] UNK - Ambulatory Encounter [facility] Preload [facility] UNK - Ambulatory Encounter [facility] Preload [facility] UNK - Ambulatory Encounter [facility] Preload [facility] UNK - Ambulatory Encounter [facility] Preload [facility] UNK - Ambulatory Encounter [facility] Preload [facility] UNK - Ambulatory Encounter [facility] Preload [facility] UNK - Ambulatory Encounter [facility] Preload [facility] UNK - Ambulatory Encounter [facility] Preload [facility] UNK - Ambulatory Encounter [facility] Preload [facility] UNK - Ambulatory Encounter [facility] Preload [facility] UNK - Ambulatory Encounter [facility] Preload [facility] UNK - Ambulatory Encounter [facility] Preload [facility] UNK - Ambulatory Encounter Colleen [facility] UNK - Ambulatory Encounter Annemarie Gaffney [facility] UNK - Ambulatory Encounter Gill Vilalfuerte [facility] Annemarie Gaffney [facility] UNK - Ambulatory Encounter Gill Macias Pacedoris Gaffney [facility] UNK - Ambulatory Encounter Gill Dalton [facility] UNK - Ambulatory Encounter Annemarie Pedersen MedAdherence Kryst[facility] UNK - Ambulatory Encounter Gill Villafuerte [facility] UNK - Ambulatory Encounter Gill Gutierrez [facility] COPDNICOTINE ADDICTIONSARCOIDOSISHYPERTENSIONMUSCLE SPASM - Ambulatory Encounter Ernesto [facility] UNK VITAL SIGNS Date Observation Value [...] " pulse rate E&M 98 /min Chukwuemeka Judaism [place] " temperature site oral Sheryl Odonnell [...] Lebron " oxygen saturation, oximetry 95 % [facility] Lebron " blood pressure, diastolic 83 mm[Hg] Francesca Lebron " blood pressure, systolic 129 mm[Hg] Francesca M Lebron " respiratory rate E&M 18 /min Francesca Lebron " pulse rate E&M 99 /min Ch[place]wuem[place]a Judaism [place] " temperature site oral Francesca M [...] blood pressure, site #1 left arm Francesca Diana " oxygen saturation, oximetry 98 % Francesca Ernesto Diana " blood pressure, diastolic 84 mm[Hg] Francesca Diana " blood pressure, systolic 135 mm[Hg] Francesca Diana " respiratory rate E&M 18 /min Francesca Diana " pulse rate E&M 98 /min Francesca Diana " temperature site oral Francesca Ernesto Diana " temperature E&M 98.4 [degF] Francesca Ernesto Diana " weight E&M 321.80 lbs. Francesca Diana " weight in kilograms E&M 146.27 kg Francesca Diana " height in centimeters E&M 154.94 cm Francesca Ernesto Diana " height E&M 61 [in_i] Francesca [...] " blood pressure, systolic 128 mm[Hg] Jamarkwuekathya Judaism [place] " respiratory rate E&M 17 /min [...] Will " temperature E&M 99.5 [degF] Hafsa Wlil " weight E&M 330.13 lbs. Hafsa Will [...] Violette Pool " temperature E&M 98.4 [degF] Voilette Pool " weight E&M 329 lbs. Violette Pool " weight in kilograms E&M 149.55 kg Violette Pool " height E&M 61 [in_i] Vioeltte Pool " height in centimeters E&M 154.94 [...] Will oxygen saturation, oximetry 92 % Priya Mars " blood pressure, diastolic 96 mm[Hg] Priya Jerad " blood pressure, systolic 129 mm[Hg] Priya Jerad " respiratory rate E&M 16 /min Priya Jerad " pulse rate E&M 109 /min Priya Jerad " temperature E&M 98.9 [degF] Priya Jerad " weight E&M 329 lbs. rPiya Mars " weight in kilograms E&M 149.55 kg Priya Mars " method used to obtain blood pressure automatic Priya Jerad " Blood Pressure Position 01 sitting Priya Jerad " blood pressure, site #1 left arm Priya Jerad " temperature site oral Priya Mars " [...] height in centimeters E&M 154.94 cm Vivian Merrick oxygen saturation, oximetry 96 % Stephanie Isabel [...] Chong " temperature E&M 98.2 [degF] Nupur Hcong " weight E&M 314 lbs. Nupur Chong [...] site oral Tainakaylin Gu " temperature E&M 98.3 [degF] Taina [...] site oral Francesca Parkerrez " weight E&M 274.38 lbs. Francesca Parkerrez " weight in kilograms E&M 124.72 kg Francesca Parkerrez " height E&M 61 [in_i] Francesca Parkerrez " height in centimeters E&M 154.94 cm Francesca Gamino oxygen saturation, oximetry 96 % Francesca Hammondsierrez " blood pressure, diastolic 82 mm[Hg] Francesca [...] height in centimeters E&M 154.94 cm Francesca Stevenson method used to obtain blood pressure manual [...] Loly Winslow " temperature site oral Loly Winslow" [...] weight in kilograms E&M 124.20 kg Colleen Sanjeev " height E&M 61 [in_i] Colleen Pace " height in centimeters E&M 154.94 cm Colleen Pace oxygen saturation, oximetry 97 % Honey Brenda " pulse rate E&M 98 /min Honey [...] " Blood Pressure Position 01 sitting Honey Brenda " blood pressure, site #1 right arm [...] % of total hemoglobin 8.2 % Edward Magañaian N[place]uife alanine aminotransferase (SGPT), serum 50 1/L [...] High blood glucose, random 256 mg/dL Edward Judaism [facility] " hemoglobin A1C, blood, as % [...] " urea nitrogen/creatinine ratio, serum 9 LinkLogic - " eGFR if 72 mL/min/((173/100).m2) LinkLogic >59 [...] TABLET BY MOUTH TWICE DAILY Tiara Christianson [facility] MUCINEX 600 MG ORAL TABLET [...] BY MOUTH ONCE DAILY Bhavya Pedersen MedAdherence HENRIK MCLAUGHLIN Use as directed to test blood sugar once daily Bhavya [facility] ICD CODE E11.9 FREESTYLE LITE TEST IN VITRO STRIP Use as directed to test blood sugar once daily Bhavya CisnerosLevindale Hebrew Geriatric [facility] ICD CODE E11.9 FREESTYLE FREEDOM LITE W/DEVICE KIT Use as directed to test blood sugar once daily [facility] CODE E11.9 BD ULTRA-FINE MICRO PEN [...] Times a Day to administer insulin Tiara CisnerosAdherfaheem Updated directions IPRATROPIUM/ ALBUTER EMI USE 1 AMPULE IN NEBULIZER EVERY 4 HOURS NEEDED FOR WHEEZING Tiara Christianson MedAdherfaheem AZITHROMYCIN 250 MG ORAL TABLET 2 tablets [...] take 2 tablet Twice a Day Edward Whiteabuife CYCLOBENZAPRINE HCL 10 MG ORAL TABLET take 1 By Mouth Three Times a Day As Needed - Titi Calderón ADVAIR DISKUS 250-50 MCG/DOSE INHALATION AEROSOL POWDER BREATH ACTIVATED 1 puff BID - Annemarie Gaffney LISINOPRIL-HYDROCHLOROTHIAZIDE 10-12.5 MG ORAL TABLET take 1 By Mouth daily - Abisaijose j Roa Nnabuinasir PREDNISONE 20MG TAB TAKE 1 [...] history E&M Single. Not homeless. Born in [facility]. City: [facility]. State: [place]. Not employed. Retired. Highest education level: high school graduate. Gender of partner(s): male. Sheryl Odonnell " social history reviewed E&M reviewed today Sheryl Odonnell " assessment of health literacy ([facility] 2014 Standards, 3C10) Adequate Sheryl Odonnell " passive cigarette smoke exposure No Sheryl Odonnell " if the patient is using/has used a vaping item, Current, Former, Never Used, Not asked No Sheryl Odonnell " smoking status former smoker Sheryl Odonnell " Exercise Program Referral T Sheryl Odonnell " Weight Management Counseling Provided T Sheryl Odonnell " Nutrition intervention T Sheryl Odonnell social history E&M Single. Not homeless. Born in [facility]. City: [facility]. State: [place]. Not employed. Retired. Highest education level: high school graduate. Gender of partner(s): male. Francesca Diana " social history reviewed E&M reviewed today Francesca Diana " assessment of health literacy ([facility] 2014 Standards, 3C10) Adequate Francesca Diana " passive cigarette smoke exposure Yes Francesca Diana " smoking status former smoker Francesca Diana " Exercise Program Referral T Francesca Diana " Weight Management Counseling Provided T Francesca Diana " Nutrition intervention Miguel A Diana time of call 07/18/2019 2:19 PM Van Wert Gagnon social history E&M Single. Not homeless. Born in [facility]. City: [facility]. State: [place]. Not employed. Retired. Highest education level: high school graduate. Gender of partner(s): male. Francesca Diana " social history reviewed E&M reviewed today Francesca Diana " assessment of health literacy ([facility] 2014 Standards, 3C10) Adequate Francesca Diana " passive cigarette smoke exposure Yes Francesca Diana " smoking status former smoker Francesca Diana " Exercise Program Referral T Francesca Diana " Weight Management Counseling Provided T Francesca Diana " Nutrition intervention T Francesca Diana Exercise Program Referral Miguel A Harman " Weight Management Counseling Provided Miguel A Harman " Nutrition intervention Miguel A Harman drug use, illicit Never Nupur Chong " alcohol use Currently Nupur Chong " social history E&M Single. Not homeless. Born in [facility]. City: [facility]. State: [place]. Not employed. Retired. Highest education level: high school graduate. Gender of partner(s): male. Nupur Chong " social history reviewed E&M reviewed today Nupur Chong " assessment of health literacy ([facility] 2014 Standards, 3C10) Adequate Nupur Chong " passive cigarette smoke exposure Yes Nupur Chong " smoking status former smoker Nupur Chong time of call 04/02/2019 8:30 AM Daphney Espitia drug use, illicit Never Stephanie Chalo " alcohol use Currently Stephanie Chalo " social history E&M Single. Not homeless. Born in [facility]. City: [facility]. State: [place]. Not employed. Retired. Highest education level: high school graduate. Gender of partner(s): male. Stephanie Isabel " social history reviewed E&M reviewed today Stephanie Isabel " assessment of health literacy ([facility] 2014 Standards, 3C10) Adequate Stephanie Isabel " passive cigarette smoke exposure Yes Stephanie Isabel " smoking status former smoker Stephanie Isabel " Exercise Program Referral T Stephanie Isabel " Weight Management Counseling Provided T Stephanie Isabel " Nutrition intervention T Stephanie Isabel sunscreen use No Ch[place]wuem[place]a Judaism Nnabuife " Exercise Program Referral T Chukwuemejose j Judaism Nnabuife " Weight Management Counseling Provided T [place] Judaism Nnabuife " Nutrition intervention T [place] Judaism Nnabuife " drug use, illicit Never Nupur Chong " alcohol use Currently Nupur Chong " social history E&M Single. Not homeless. Born in [facility]. City: [facility]. State: [place]. Not employed. Retired. Highest education level: high school graduate. Gender of partner(s): male. Nupur Chong " social history reviewed E&M reviewed today Nupur Chong " assessment of health literacy ([facility] 2014 Standards, 3C10) Adequate Nupur [...] history E&M Single. Not homeless. Born in [facility]. City: [facility]. State: [place]. Not employed. Retired. Highest education level: high school graduate. Gender of partner(s): male. Nupur Chong " social history reviewed E&M reviewed today Nupur Chong " assessment of health literacy ([facility] 2014 Standards, 3C10) Adequate Nupur Chong " passive cigarette smoke exposure No Nupur Chong " smoking status former smoker Nupur Chong time of call 11/21/2018 9:45 MANUEL Engel drug use, illicit Never Stephanie Isabel " alcohol use Currently Stephanie Isabel " social history E&M Single. Not homeless. Born in [facility]. City: [facility]. State: [place]. Not employed. Retired. Highest education level: high school graduate. Gender of partner(s): male. Stephanie Isabel " social history reviewed E&M reviewed today Stephanie Isabel " assessment of health literacy ([facility] 2014 Standards, 3C10) Adequate Stephanie [...] history E&M Single. Not homeless. Born in [facility]. City: [facility]. State: [place]. Not employed. Retired. Highest education level: high school graduate. Gender of partner(s): male. Hafsa Will " social history reviewed E&M reviewed today Hafsa Will " assessment of health literacy ([facility] 2014 Standards, 3C10) Adequate Hafsa [...] history E&M Single. Not homeless. Born in [facility]. City: [facility]. State: [place]. Not employed. Retired. Highest education level: high school graduate. Gender of partner(s): male. Violette Pool " social history reviewed E&M reviewed today Violette Pool " assessment of health literacy ([facility] 2014 Standards, 3C10) Adequate Violette Pool " passive cigarette smoke exposure No Violette Pool " smoking status former smoker Violette Pool alcohol use Currently Hafsa Will " drug use, illicit Never Hafsa Will " social history E&M Single. Not homeless. Born in [facility]. City: [facility]. State: [place]. Not employed. Retired. Highest education level: high school graduate. Gender of partner(s): male. Hafsa Will " social history reviewed E&M reviewed today Hafsa Will " assessment of health literacy ([facility] 2014 Standards, 3C10) Adequate Hafsa [...] history E&M Single. Not homeless. Born in [facility]. City: [facility]. State: [place]. Not employed. Retired. Highest education level: high school graduate. Gender of partner(s): male. Priya Jack " social history reviewed E&M reviewed today Priya Jerad " assessment of health literacy ([facility] 2014 Standards, 3C10) Adequate Priya [...] Gautamwlinda Roa Nnabuife " Nutrition intervention T Chukwlinda Judaism Nnabuife " social history E&M Single. Not homeless. Born in [facility]. City: [facility]. State: [place]. Not employed. Retired. Highest education level: high school graduate. Gender of partner(s): male. Alayna Chapman " social history reviewed E&M reviewed today Alayna Chapman " assessment of health literacy ([facility] 2014 Standards, 3C10) Adequate Alayna Chapman " passive cigarette smoke exposure Yes Alayna Chapman " smoking status former smoker Alayna Chapman time of call 04/24/2018 11:41 AM Gaylekaylin Serrano drug use, illicit Never Stephanie Isabel " alcohol use Currently Stephanie Isabel " social history E&M Single. Not homeless. Born in [facility]. City: [facility]. State: [place]. Not employed. Retired. Highest education level: high school graduate. Gender of partner(s): male. Stephanie Isabel " social history reviewed E&M reviewed today Stephanie Isabel " assessment of health literacy ([facility] 2014 Standards, 3C10) Adequate Stephanie [...] history E&M Single. Not homeless. Born in [facility]. City: [facility]. State: [place]. Not employed. Retired. Highest education level: high school graduate. Gender of partner(s): male. Alayna Chapman " social history reviewed E&M reviewed today Alayna Chapman " assessment of health literacy ([facility] 2014 Standards, 3C10) Adequate Alayna Chapman " passive cigarette smoke exposure No Alayna Chapman " smoking status former smoker Alayna Chapman " Exercise Program Referral T Alayna Chapman " Weight Management Counseling Provided T Alayna Chapman " Nutrition intervention T Alayna Chapman Exercise Program Referral T Jamarkwuemeka Judaism Nnabuife " Weight Management Counseling Provided T [place] Judaism Nnabuife " Nutrition intervention T [place] Judaism Nnabuife " alcohol use Currently Alayna Chapman " social history E&M Single. Not homeless. Born in [facility]. City: [facility]. State: [place]. Not employed. Retired. Highest education level: high school graduate. Gender of partner(s): male. Alayna Chapman " social history reviewed E&M reviewed today Alayna Chapman " assessment of health literacy ([facility] 2014 Standards, 3C10) Adequate Alayna Chapman " passive cigarette smoke exposure No Alayna Chapman " smoking status former smoker Alayna Krausa " assessment of health literacy ([facility] 2014 Standards, 3C10) Adequate Alayna Chapman " drug use, illicit Never Alayna Chapman " alcohol use Currently Alayna Chapman " social history E&M Single. Not homeless. Born in [facility]. City: [facility]. State: [place]. Not employed. Retired. Highest education level: high school graduate. Gender of partner(s): male. Alayna Chapman " social history reviewed E&M reviewed today Alayna Chapman " passive cigarette smoke exposure No Alayna Chapman " smoking status former smoker Alayna Krausa time of call 01/12/2018 10:52 AM Terry [...] history E&M Single. Not homeless. Born in [facility]. City: [facility]. State: [place]. Not employed. Retired. Highest education level: high school graduate. Gender of partner(s): male. Vivian Sin " social history reviewed E&M reviewed today Vivian Sin " passive cigarette smoke exposure No Vivian iSn " smoking status former smoker Vivian Sin " Exercise Program Referral T Vivian Sin " Weight Management Counseling Provided T Vivian Sin " Nutrition intervention Miguel A Sin time of call 12/05/2017 2:22 PM Sera Bob drug use, illicit Never Stephanie Isabel " alcohol use Currently Stephanie Isabel " social history E&M Single. Not homeless. Born in [facility]. City: [facility]. State: [place]. Not employed. Retired. Highest education level: high [...] Edward Whiteabuife " Nutrition intervention T Edward Roa Nnabuife " social history E&M Single. Not homeless. Born in [facility]. City: [facility]. State: [place]. Not employed. Retired. Highest education level: high school graduate. Gender of partner(s): male. Chuodilia Delgado " social history reviewed E&M reviewed today Edward Delgado " drug use, illicit Never Nupur Chong " alcohol use Currently Nupur Chong " passive cigarette smoke exposure Yes Nupur Chong " smoking status former smoker Nupur Chong time of call 09/02/2017 9:48 AM Donna VenturaSabiha sunscreen use No Edward Boyceuinasir " social history E&M Single. Not homeless. Born in [facility]. City: [facility]. State: [place]. Not employed. Retired. Highest education level: high school graduate. Gender of partner(s): male. Edward Delgado " social history reviewed E&M reviewed today Edward Delgado " passive cigarette smoke exposure Yes Taina Riccardo " smoking status former smoker Taina Gu time of call 08/11/2017 8:56 AM [facility] Referral T Titicleveland Calderón " Weight Management Counseling Provided T Titicleveland Sommermi " Nutrition intervention T Titi Kaitlynn " passive cigarette smoke exposure No Taina Riccardo " smoking status former smoker Taina Gu time of call 07/21/2017 4:25 PM Alayna Gu social history E&M Single. Not homeless. Born in [facility]. City: [facility]. State: [place]. Not employed. Retired. Highest education level: high [...] former smoker Taina Gu Exercise Program Referral T Edwin Umana " Weight Management Counseling Provided T Edwin Umana " Nutrition intervention T Edwin Umana " drug use, illicit Never Francesca Gamino " alcohol use, frequency holidays/special occasions only Francesca Gamino " alcohol use Currently Francesca Gamino " smoking status former smoker Francesca Gamino " passive cigarette smoke exposure No Francesca Gamino drug use, illicit Never Francesca Parkerrez " alcohol use Never Francesca Gamino " passive cigarette smoke exposure No Francesca Parkerrez " smoking status former smoker Francesca Gamino social history E&M Single. Not homeless. Born in [facility]. City: [facility]. [place]: [place] Not employed. Retired. Highest education level: high [...] history E&M Single. Not homeless. Born in [facility]. City: [facility]. State: [place]. Not employed. Retired. Highest education level: high [...] score, Activities of Daily Living (ADL) [facility] of Daily Living (ADLs, IADLs, etc.) Decre[facility] in [facility]L [facility] MENTAL STATUS Date Observation Value Provider assessment of judgment and insight E&M intact [facility] " mental status examination: orientation E&M oriented to time, place, and person [facility] " assessment of mood and affect E&M no depression, anxiety, or agitation [facility] " Generalized Anxiety Disorder Questionnaire - Question [...] of judgment and insight E&M intact [facility] " mental status examination: orientation E&M oriented to time, place, and person [facility] " assessment of mood and affect E&M no depression, anxiety, or agitation [facility] " Generalized Anxiety Disorder Questionnaire - Question 2 0 Francesca Diana " Generalized Anxiety Disorder Questionnaire - Question 1 0 Francesca Orozco Lebron assessment of judgment and insight E&M intact Edward Whiteabui " mental status examination: orientation E&M oriented to time, place, and person Chuodilia Judaism Nnabuife " assessment of mood and affect E&M no depression, anxiety, or agitation [facility] " Generalized Anxiety Disorder Questionnaire - Question 2 0 Francesca Orozco Lebron " Generalized Anxiety Disorder Questionnaire - Question 1 0 Francesca Orozco Lebron assessment of judgment and insight E&M intact Edward Roa Nnabuife " assessment of mood and affect E&M no depression, anxiety, or agitation [facility] " mental status examination: orientation E&M oriented to time, place, and person Chuodilia Roa Nnabuife " Generalized Anxiety Disorder Questionnaire - Question 2 0 Nupur Chong " Generalized Anxiety Disorder Questionnaire - Question 1 0 Nupur Chong assessment of judgment and insight E&M intact Edward Whiteabuinasir " mental status examination: orientation E&M oriented to time, place, and person Chuodilia Judaism Nnabuife " assessment of mood and affect E&M no depression, anxiety, or agitation [facility] " Generalized Anxiety Disorder Questionnaire - Question 2 0 Stephanie Isabel " Generalized Anxiety Disorder Questionnaire - Question 1 0 Stephanie Isabel assessment of judgment and insight E&M intact Edward Whiteabuife " mental status examination: orientation E&M oriented to time, place, and person Chuodilia Judaism Nnabuife " assessment of mood and affect E&M anxious, depressed mood [facility] " Generalized Anxiety Disorder Questionnaire - [...] assessment of judgment and insight E&M intact [facility] " mental status examination: orientation E&M oriented to time, place, and person [facility] " assessment of mood and affect E&M anxious, depressed mood [facility] " Generalized Anxiety Disorder Questionnaire - Question 2 0 Stephanie Isabel " Generalized Anxiety Disorder Questionnaire - Question 1 0 Stephanie Isabel assessment of judgment and insight E&M intact [facility] " mental status examination: orientation E&M oriented to time, place, and person [facility] " assessment of mood and affect E&M anxious, depressed mood [facility] Nnabuife mental status examination: orientation E&M alert and oriented Tiny George Mckeon " assessment of mood and affect E&M normal affect Tiny Vazquez Mckeon Generalized Anxiety Disorder Questionnaire - Question 2 0 Hafsa Will " Generalized Anxiety Disorder Questionnaire - Question 1 0 Hafsa Will Generalized Anxiety Disorder Questionnaire - Question 2 0 Violette Welch " Generalized Anxiety Disorder Questionnaire - Question 1 0 Violette Welch assessment of judgment and insight E&M intact [facility] " mental status examination: orientation E&M oriented to time, place, and person [facility] " assessment of mood and affect E&M anxious, depressed mood [facility] Nnabuife assessment of judgment and insight E&M intact [facility] " mental status examination: orientation E&M oriented to time, place, and person [facility] " assessment of mood and affect E&M anxious, depressed mood [facility] " Generalized Anxiety Disorder Questionnaire - Question 2 0 Priya Mars " Generalized Anxiety Disorder Questionnaire - Question 1 0 Priya Mars assessment of judgment and insight E&M intact Edward Roa Nnabuife " mental status examination: orientation E&M oriented to time, place, and person Chukwlinda Roa Nnabuife " assessment of mood and affect E&M anxious, depressed mood Chukwlinda Magañaian Nnabuife " Generalized Anxiety Disorder Questionnaire - Question 2 0 Alayna Chapman " Generalized Anxiety Disorder Questionnaire - Question 1 0 Alayna Chapman assessment of judgment and insight E&M intact Chuodilia Magañaian Nnabuife " mental status examination: orientation E&M oriented to time, place, and person Chukwlinda Roa Nnabuife " assessment of mood and affect E&M anxious, depressed mood Chuodilia Magañaian Nnabuife " Generalized Anxiety Disorder Questionnaire - Question 2 0 Stephanie Isabel " Generalized Anxiety Disorder Questionnaire - Question 1 0 Stephanie Isabel assessment of judgment and insight E&M intact Edward Roa Nnabuife " mental status examination: orientation E&M oriented to time, place, and person Chukkavin Roa Nnabuife " assessment of mood and affect E&M anxious, depressed mood Chuodilia Roa Nnabuife " Generalized Anxiety Disorder Questionnaire - Question 2 0 Alayna Chapman " Generalized Anxiety Disorder Questionnaire - Question 1 0 Alayna Chapman assessment of judgment and insight E&M intact Edward Roa Nnabuife " mental status examination: orientation E&M oriented to time, place, and person Chukwlinda Judaism Nnabuife " assessment of mood and affect E&M anxious, depressed mood Chuodilia Magañaian Nnabuife " Generalized Anxiety Disorder Questionnaire - Question 2 0 Alayna Chapman " Generalized Anxiety Disorder Questionnaire - Question 1 0 Alayna Chapman assessment of judgment and insight E&M intact Edward Magañaian Nnabuife " mental status examination: orientation E&M oriented to time, place, and person Chukwlinda Judaism Nnabuife " assessment of mood and affect E&M anxious, depressed mood Chukwlinda Delgado " Generalized Anxiety Disorder Questionnaire - [...] process able to abstract, goal-directed, logical Toma Chuck " mental status assessment, sensorium alert, attentive, clear Toma Woods " mood (mental status exam) depressed Toma Woods " mental status assessment, speech activity normal flow, normal pace, normal pressure, normal rate, normal tone, normal volume, spontaneous Toma Woods " mental status assessment, motor activity normal gait, normal posture Tomamarilyn Woods " behavior (mental status exam) appropriate, candid, cooperative, good eye contact, polite, responsive, tearful Toma Woods " mental appearance (mental status exam) adequate hygiene, appropriate dress, looks like stated age, neat Toma Woods " delusion No Toma Woods " hallucinations none Toma Woods assessment of mood and affect E&M anxious, depressed mood Edward Boyceuinasir " assessment of judgment and insight E&M intact Edward Delgado " mental status examination: orientation E&M oriented to time, place, and person Edward Boyceuife " If any problems checked, how difficult [...] Disorder Questionnaire - Question 2 3 Vivian Merrick " Generalized Anxiety Disorder Questionnaire - Question 1 3 Vivian Sin assessment of judgment and insight E&M intact [facility] " mental status examination: orientation E&M oriented to time, place, and person [facility] Nnabuife " assessment of mood and affect E&M no depression, anxiety, or agitation [facility] " Generalized Anxiety Disorder Questionnaire - Question 2 0 Stephanie Chalo " Generalized Anxiety Disorder Questionnaire - Question 1 0 Stephanie Chalo Generalized Anxiety Disorder Questionnaire - Question 2 0 Nupur Castillo " Generalized Anxiety Disorder Questionnaire - Question 1 0 Nupur Chong mental status examination: recall E&M intact for recent and remote events [facility] Nnabuife " assessment of judgment and insight E&M intact [facility] Nnabuife " mental status examination: orientation E&M oriented to time, place, and person [facility] Nnabuife " assessment of mood and affect E&M no depression, anxiety, or agitation [facility] Nnabuife " Generalized Anxiety Disorder Questionnaire [...] E&M intact for recent and remote events [facility] Nnabuife " mental status examination: orientation E&M oriented to time, place, and person [facility] Health[facility] Nnabuife " assessment of judgment and insight E&M intact [facility] Nnabuife " assessment of mood and affect E&M no depression, anxiety, or agitation [facility] Nnabuife " Generalized Anxiety Disorder Questionnaire [...] affect E&M no depression, anxiety, or agitation Kishanmitkaylin Esquivel " If any problems checked, how [...] name Policy type / Coverage type Covered green party [place] [employer] H[employer] Medicare HMO [id number] ADVANCE DIRECTIVES No Information Available TREATMENT PLAN [...] - - Est Patient Exp Problem - 14519 Est Patient Exp Problem - 26774 Finger Stick Glucose Est Patient Exp Problem - 90556 Est Patient Exp Problem - 96258 Est Patient Detailed - 00271 New Patient Intermediate Opth - 34754 Finger Stick Glucose Ear Irrigation Est Patient Exp Problem - 42256 Est Patient Exp Problem - 84048 Retinal Screening Est Patient Well Exam (40 - 64 Yrs) - 75812 Est Patient Detailed - 14275 Est Patient Exp Problem - 74105 Est Patient Exp Problem - 09815 New Patient Comprehensive - 73160 Glucose Stick Est Patient Exp Problem - 31499 Glucose Stick Est Patient Exp Problem - 57737 Prescription Assistance (Non-HIV) Glucose Stick Est Patient Exp Problem - 35242 Endocrinology - Adult - [facility] HEMOGLOBIN A1C - In House Est Patient Exp Problem - 37469 Est Patient Detailed - 39781 Est Patient Exp Problem - 65348 Est Patient Detailed - 67581 IB Assessment - Electronic Test Technician Diagnostic evaluation (no medical) - 39012 Integrated Behavioral Health Assessment (IBH) Est Patient Exp Problem - 55614 Est Patient Detailed - 39586 Ofc Vst, Est Level V Est Patient Exp Problem - 53122 Est Patient Exp Problem - 41717 Ofc Vst, Est Level IV Est Patient Exp Problem - 74928 Ofc Vst, Est Level V Est Patient Exp Problem - 57624 Est Patient Detailed - 71137 Est Patient Detailed - 73978 ALBUTEROL INHAL ADMIN THRU DME 1MG Est Patient Detailed - 77539 Est Patient Exp Problem - 29675 Est Patient Exp Problem - 71713 Ear Irrigation Est Patient Exp Problem - 07531 Ofc Vst, Est Level III Est Patient Exp Problem - 11536 HISTORY OF PROCEDURES Procedure Date Procedure Name Provider Procedure Notes Status Finger Stick Glucose Gill Villafuerte completed New Patient Intermediate Opth - 90883 Satinder Harman completed Finger Stick Glucose Satinder Harman completed Ear Irrigation Satinder Harman completed Glucose Stick Gill M Noy completed Glucose Stick Satinder Ghazal completed Glucose Stick Gill Orozco Noy completed HEMOGLOBIN A1C - In House Comfort Trevino completed [facility] Assessment - Electronic Test Technician Toma Woods completed Diagnostic evaluation (no medical) - 63743 Toma Woods completed ALBUTEROL INHAL ADMIN THRU DME 1MG Deniz Brown completed Ear Irrigation Thea Junior completed [facility] No Information Available HEALTH CONCERNS No Information Available
--- OUTSIDE RECORDS SUMMARY | 2019-09-25 17:49 | XMS REPORT ---
Author Author Admin, [place] Organization Unknown Address Unknown Phone Unavailable PROBLEMS [...] Roa N[place]uife Dyspnea at rest active Edward Rao [place] Acute upper respiratory infection active Edward Roa [place] Screening for lipid disorder active Edward Roa [place] Screening for diabetes mellitus active Edward Roa [place] GERD active Edward Roa [place] Diabetes mellitus type II active Edward Roa [place] Urinary retention active Edward Roa [place] Ascites active Edward Roa [place] Abdominal pain, chronic active Edward Roa [place] Abdominal distension active Edward Magañaian [place] Mood Disorder, NOS active Toma [place] Suicidal ideation active Edward Roa [place] Depression, major active Edward Magañaian [place] COPD with exacerbation active Edward Roa [place] BMI 50.0-59.9 completed - Tiny Vazquez Mckeon Chronic bronchitis active Edward Magañaian [place] Breast abnormal findings active Edward Whiteabuife Otitis media, acute completed - Titicleveland Sommermi [...] Baljinderniesha Isabel EAR PAIN, RIGHT completed - Tiit Kaitlynn MUSCLE SPASM completed - Titi Kaitlynn HYPERTENSION active Gill Villafuerte SARCOIDOSIS active Gill Villafuerte NICOTINE ADDICTION active Sharpe Vo COPD active Sharpe Vo ENCOUNTERS Date Type Provider Location Encounter Diagnosis - Ambulatory Encounter Gill [facility] [place] [facility] [place] - [place]ulatory Encounter Kimberly Jorgensen Edward Cheondoism [place] Edward Cheondoism N[place] [facility] UNK - Ambulatory Encounter Kimberly Pace [facility] UNK - Ambulatory Encounter Edward Cheondoism Nnabu[place] Edward Cheondoism Nnabuife [facility] UNK - Ambulatory Encounter Chuodilia Cheondoism N[place]abuife Edward Cheondoism Nnabuife [facility] UNK - Ambulatory Encounter Edward Cheondoism Nnabuife Edward Cheondoism Nnabuife [facility] UNK - Ambulatory Encounter Gill Roa Nnabuife Edward Cheondoism [place] Sheryl Odonnell [facility] Constipation, drug induced - Ambulatory Encounter Edward Whiteabjaimie Leon Cheondoism [place] Bronson Marroquin MedAdherence, [facility] UNK - Ambulatory Encounter Edward Whiteabuife Edward Roa Nn[place] Danay Langley MedAdherence [facility] UNK - Ambulatory Encounter Violette Rome Salazar [facility] UNK - Ambulatory Encounter Edward Magañaian N[place] Edward Cheondoism Nnabuife [facility] UNK - Ambulatory Encounter LSJ Lab Support Desktop LinkLogic Edward Magañaian N[place] Edward Cheondoism Nnabuife [facility] UNK - Ambulatory Encounter Fax Status LinkLogic [facility] UNK - Ambulatory Encounter Fax Status LinkLogic [facility] UNK - Ambulatory Encounter Fax Status LinkLogic [facility] UNK - Ambulatory Encounter Edward Cheondoism Nnabuife Edward Cheondoism Nnabuife [facility] UNK - Ambulatory Encounter Chuodilia Cheondoism N[place]uife Edward Cheondoism Nnabuife [facility] UNK - Ambulatory Encounter Edward Roa Nnabuife Edward Cheondoism Nnabuife [facility] UNK - Ambulatory Encounter Satinder Roa [place] Edward Magañaian [place] Francesca Diana [facility], internal - Ambulatory Encounter Comfort Marroquin MedAdherence, [facility] UNK - Ambulatory Encounter Comfort Langley MedAdherence [facility] UNK - Ambulatory Encounter Kimberly Gagnon Denio UNK - Ambulatory Encounter Gill Marroquin MedAdherence, [facility] UNK - Ambulatory Encounter Edward Whiteabuinasir Magañaian Nnabuife [facility] UNK - Ambulatory Encounter Edward Roa Nntravis Whiteabuinasir [facility] UNK - Ambulatory Encounter Gill Whiteabuinasir Whiteabuinasir Francescalloyd Diana [facility] UNK - Ambulatory Encounter Comfort Ellsworth MedAdherence, [facility] UNK - Ambulatory Encounter Comfort [facility]quin [facility] - Ambulatory Encounter Edward Whiteabuife [facility] - Ambulatory Encounter Comfort Hernandez MedAdherence [facility] UNK - Ambulatory Encounter F[facility] Status [facility] UNK - Ambulatory Encounter Fax Status [facility] UNK - Ambulatory Encounter Fax Status [facility] UNK - Ambulatory Encounter Edward Whiteabuinasir White[facility]uife [facility] UNK - Ambulatory Encounter Satinder Whiteabuinasir Roa Nnabuife [facility] Hypokalemia, mild - Ambulatory Encounter Edward Wihteabuinasir Whiteabuife [facility] UNK - Ambulatory Encounter LSJ Lab Support Desktop LinkLogic Edward Whiteabuinasir Whiteabuife [facility] UNK - Ambulatory Encounter Fax Status LinkLogic [facility] UNK - Ambulatory Encounter Fax Status LinkLogic [facility] UNK - Ambulatory Encounter Fax Status LinkLogic [facility] UNK - Ambulatory Encounter Fax Status LinkLogic [facility] UNK - Ambulatory Encounter Edward Roa Nnabuife Edward Cheondoism Nnabuife [facility] UNK - Ambulatory Encounter Edward Roa Nnabuife Edward Cheondoism Nnabuife [facility] UNK - Ambulatory Encounter Edward Roa Nnabuife Edward Cheondoism Nnabuife [facility] UNK - Ambulatory Encounter Satinder Roa [place] Edward Roa [place] Sheryl [facility] UNK - Ambulatory Encounter Comfort Pedersen MedAdherence [facility] UNK - Ambulatory Encounter Comfort Christianson MedAdherence [facility] UNK - Ambulatory Encounter Tiara Christianson MedAdherence [facility] UNK - Ambulatory Encounter Edward Whiteabuinasir Magañaian Nn[place] [facility] - Ambulatory Encounter Osiris Gordon [facility] UNK - Ambulatory Encounter Chuodilia Cheondoism Nn[place]uife Edward Cheondoism N[place]uife LinkLogic [facility] UNK - Ambulatory Encounter Comfort Christianson [facility] UNK - Ambulatory Encounter Chukkavin Cheondoism N[place]uife Chuodilia Cheondoism Nnabuife [facility] UNK - Ambulatory Encounter Chukkavin Cheondoism N[place] Chuodilia Cheondoism Nnabuife [facility] UNK - Ambulatory Encounter Chukkavin Cheondoism N[place] Chuodilia Cheondoism Nn[place]uife [facility] UNK - Ambulatory Encounter Satinder Leon Cheondoism N[place] Chukwlinda Cheondoism Nnabuife [facility] Chronic pain syndrome - Ambulatory Encounter Chuodilia Cheondoism Nn[place]uife Gautamwlinda Cheondoism Nnabuife [facility] UNK - Ambulatory Encounter LSJ Lab Support Desktop LinkLogic Chukwlinda Cheondoism Nn[place]uife Chuvidhyawlinda Cheondoism Nnabuife [facility] UNK - Ambulatory Encounter Chukkavin Cheondoism N[place] Chukwlinda Cheondoism Nnabuife [facility] UNK - Ambulatory Encounter Chukkavin Cheondoism Nn[place]uife Chuvidhyawlinda Cheondoism Nnabuife [facility] UNK - Ambulatory Encounter Comfort Leon Cheondoism N[place] Chukwuemeka Cheondoism Nnabuife Osorio Benítez [facility] Well woman examCerumen impaction, bilateral - Ambulatory Encounter Satinder Christianson MedAdherence [facility] UNK - Ambulatory Encounter Satinderchristopher Christianson MedAdherence [facility] DaleyGagnon Denio UNK - Ambulatory Encounter Satinder Christianson MedAdherence Chukwfabiánmejose j Magañaian [place] Edward Roa [place] Eusebia Gagnon [facility] UNK - Ambulatory Encounter Satinder Christianson MedAdherence [facility] UNK - Ambulatory Encounter Tiara Christianson MedAdherence Alayna [facility] UNK - Ambulatory Encounter Edward Roa Nnabuife Edward Roa Nnabuife LinkLogic [facility] UNK - Ambulatory Encounter Edward Whiteabuinasir Leon Cheondoism Nn[place]uife LinkLogic [facility] UNK - Ambulatory Encounter Satinder Christianson MedAdherence [facility] UNK - Ambulatory Encounter Satinder Harman [facility] UNK - Ambulatory Encounter Fax Status [facility] UNK - Ambulatory Encounter Fax Status [facility] Services UNK - Ambulatory Encounter Fax Status [facility] UNK - Ambulatory Encounter Fax Status [facility] UNK - Ambulatory Encounter F[facility] - Ambulatory Encounter Fax Status [facility] UNK - Ambulatory Encounter Satinder Harman Tamiko Hameedna [facility] UNK - Ambulatory Encounter Tiara Christianson MedAdherence Satinder Engel [facility] UNK - Ambulatory Encounter Kimberly Lucassslloyd Roa Nnabuife Edward Roa Nnabuife [facility] UNK - Ambulatory Encounter Satinder Christianson MedAdherence [facility] UNK - Ambulatory Encounter Satinder Harman [facility] UNK - Ambulatory Encounter Fax Status [facility] UNK - Ambulatory Encounter Lo Esquivel Tiara Christianson MedAdherence [facility] UNK - Ambulatory Encounter Edward Roa Nnabuife Edward Cheondoism N[place] LinkLogic [facility] UNK - Ambulatory Encounter Edward Cheondoism N[place] Edward Cheondoism N[place] LinkLogic [facility] UNK - Ambulatory Encounter Chuodilia Cheondoism N[place] Edward Cheondoism Nnabuife [facility] UNK - Ambulatory Encounter Chuodilia Cheondoism N[place] Edward Cheondoism Nnabuife [facility] UNK - Ambulatory Encounter Chuodilia Cheondoism N[place] Chukwuekathya Whiteabuinasir [facility] UNK - Ambulatory Encounter Lo Esquivel Stephanie Roldankwuemejose j Whiteabjaimie Florezwuemejose j Whiteabjaimie [facility] BMI 60.0-69.9, adultBMI 50.0-59.9 - Ambulatory Encounter Alayna Nava [facility] UNK - Ambulatory Encounter Kayla Ruel [facility] UNK - Ambulatory Encounter Kayla Ruel [facility] UNK - Ambulatory Encounter Edward Roldankwuemejose j Boyceuinasir Kaylakaylin Lipscomb [facility] UNK - Ambulatory Encounter Satinder Christianson MedAdherence Kayla Florezwuemeojse j Roldankwuemejose j Reich [facility] UNK - Ambulatory Encounter Fax Status LinkLogic [facility] UNK - Ambulatory Encounter Fax Status LinkLogic [facility] UNK - Ambulatory Encounter Fax Status LinkLogic [facility] UNK - Ambulatory Encounter Fax Status LinkLogic [facility] UNK - Ambulatory Encounter Bhavya Pedersen MedAdherence Clementine Velasquez [facility] UNK - Ambulatory Encounter Edward Boyceuinasir [facility] UNK - Ambulatory Encounter Edward Delgado [facility] UNK - Ambulatory Encounter Edward Whiteabuinasir Leon Cheondoism Nnabuife [facility] UNK - Ambulatory Encounter Comfort Roa Nnabuife Edward Cheondoism N[place] Hafsa Will [facility] Dyspnea at restCHF exacerbation - Ambulatory Encounter Tiny Vazquez Mckeon Tiny Vazquez [facility] - [facility]ulatory Encounter Tiny Vazquez Mckeon Tiny Vazquez Mckeon Violette Yuri [facility] BMI 50.0-59.9BMI 60.0-69.9, adult - Ambulatory Encounter Kayla Lipscomb [facility] UNK - Ambulatory Encounter Satinder Christianson [facility] Francesca Potts [facility] UNK - Ambulatory Encounter Violette Lipscomb [facility] UNK - Ambulatory Encounter Edward Whiteabjaimie Magañaian Cindyabuife [facility] UNK - Ambulatory Encounter Edward Cheondoism Nnabuife Edward Cheondoism Cindyabuife [facility] UNK - Ambulatory Encounter Edward Magañaian Cindyabuinasir Leon Cheondoism Nnabuife [facility] UNK - Ambulatory Encounter Edward Whiteabuinasir Leon Cheondoism Nnabuife [facility] UNK - Ambulatory Encounter Edward Whiteabuife Edward Cheondoism Nnabuife [facility] UNK - Ambulatory Encounter Gill Florezwlinda Roa Nnabuife Edward Magañaian [place] Violette Bakereca Suman [facility] Acute upper respiratory infection - Ambulatory Encounter Bhavya Pedersen MedAdherence [facility] UNK - Ambulatory Encounter Satinder Harman LinkLogic [facility] UNK - Ambulatory Encounter Bhavya [facility] UNK - Ambulatory Encounter Comfort Trevino [facility] UNK - [facility] - Ambulatory Encounter Fax Status [facility] UNK - Ambulatory Encounter Fax Status [facility] UNK - Ambulatory Encounter Fax Status [facility] UNK - Ambulatory Encounter Alayna Chapman [facility] UNK - Ambulatory Encounter Edward Roa Nnabuife Edward Cheondoism Nnabuife [facility] UNK - Ambulatory Encounter Edward Roa Nnabuife Edward Cheondoism Nnabuife [facility] UNK - Ambulatory Encounter Edward Roa Nnabuife Edward Cheondoism Nnabuife [facility] UNK - Ambulatory Encounter Satinder Florezwuemeka Cheondoism N[place]uife Chukwuemejose j Cheondoism Nn[place]uife Priya Mars [facility] UNK - Ambulatory Encounter Parrisleón Oleary [facility] UNK - Ambulatory Encounter Chukwuemejose j Cheondoism N[place] Chukwuemejose j Cheondoism Nn[place]uife LinkLogic [facility] UNK - Ambulatory Encounter Bhavya Pedersen MedAdherence Kirsten Ibarra Chukwuemeka Cheondoism N[place]uife Chukwuemejose j Cheondoism N[place]uife Raysa Potts [facility] UNK - Ambulatory Encounter Chukwuemejose j Cheondoism Nn[place]uife Chukwuemejose j Cheondoism Nnabuife [facility] UNK - Ambulatory Encounter Chukwuemejose j Cheondoism N[place] Chukwuemejose j Cheondoism Nnabuife [facility] UNK - Ambulatory Encounter Chukwuemejose j Cheondoism N[place] Chukwuemejose j Cheondoism Nnabuife [facility] UNK - Ambulatory Encounter Chukwuemejose j Cheondoism N[place]ife Chukwuemejose j Cheondoism Nnabuife [facility] UNK - Ambulatory Encounter Gill Chapman Chukwuemejose j Cheondoism N[place]ife Chukwuemejose j Cheondoism Nnabuife [facility] UNK - Ambulatory Encounter Bhavya Pedersen MedAdherence [facility] UNK - Ambulatory Encounter Kayla Serrano [facility] UNK - Ambulatory Encounter Chukwuemejose j Cheondoism Nn[place]uife Chukwuemejose j Cheondoism Nnabuife [facility] UNK - Ambulatory Encounter Tabjessica Donaldsonly [facility] UNK - Ambulatory Encounter Chukwuekathya Cheondoism [place] Chukwuemejose j Cheondoism Nnabuife [facility] UNK - Ambulatory Encounter Chukwuemejose j Cheondoism N[place] Chukwuemeka Cheondoism Nnabuife [facility] UNK - Ambulatory Encounter LSJ Lab Support Desktop LinkLogic Tab Leon Cheondoism [place] Chukwuemejose j Cheondoism Nnabuife [facility] UNK - Ambulatory Encounter Chukwlinda Cheondoism Nn[place]uife Jamarkwlinda Cheondoism Nnabuife [facility] UNK - Ambulatory Encounter Chukwlinda Cheondoism N[place] Chukwuemejose j Cheondoism Nnabuife [facility] UNK - Ambulatory Encounter Chukwuemejose j Cheondoism N[place]ife Chukwuemejose j Cheondoism Nnabuife [facility] UNK - Ambulatory Encounter Comfort Christianson MedAdherence Chukwuekathya Cheondoism N[place] Chukwuemejose j Cheondoism N[place] Marielena Reich [facility] Screening for diabetes mellitusScreening for lipid disorder - Ambulatory Encounter Chukwlinda Cheondoism N[place]uife Chukwlinda Cheondoism Nnabuife [facility] GERD - Ambulatory Encounter Chukwlinda Cheondoism Nn[place]uife Edward Cheondoism Nnabuinasir Isabel [facility] UNK - Ambulatory Encounter Chukwlinda Cheondoism N[place]uife Edward Cheondoism Nnabuife [facility] UNK - Ambulatory Encounter Tab Florezwlinda Cheondoism N[place]uife Chuodilia Cheondoism N[place]uife Vivian Mary [facility] UNK - Ambulatory Encounter Chukwuekathya Cheondoism N[place]uife Chukwlinda Cheondoism Nnabuife [facility] UNK - Ambulatory Encounter Chukwlinda Cheondoism Nnabuife Jamarkwlinda Cheondoism Nnabuife [facility] UNK - Ambulatory Encounter Chukwlinda Cheondoism N[place]ife Chukwfabiánmejose j Cheondoism Nnabuife [facility] UNK - Ambulatory Encounter Comfort Leon Cheondoism N[place]ife Chukwuemejose j Cheondoism Nnabuife [facility] Diabetes mellitus type II - Ambulatory Encounter Chukwlinda Cheondoism N[place]uife Chukwfabiánmejose j Cheondoism Nn[place]uife LinkLogic [facility] UNK - Ambulatory Encounter Chukwlinda Cheondoism N[place]ife Chukwuemejose j Cheondoism Nn[place]uife LinkLogic [facility] UNK - Ambulatory Encounter Loly Short [facility] UNK - Ambulatory Encounter Chukwfabiánmejose j Cheondoism Nn[place]uife Jamarkwuemejose j Cheondoism Nn[place]uife LinkLogic [facility] UNK - Ambulatory Encounter Chukwuemeka Cheondoism Nn[place]uife Edward Cheondoism Nnabuife [facility] UNK - Ambulatory Encounter Chukwlinda Cheondoism Nn[place]uife Chuodilia Cheondoism Nnabuife [facility] UNK - Ambulatory Encounter Chukkavin Cheondoism N[place]uife Chuodilia Cheondoism Nnabuife [facility] UNK - Ambulatory Encounter Chukkavin Cheondoism N[place]uife Edward Cheondoism Nnabuife [facility] UNK - Ambulatory Encounter Satinder Leon Cheondoism N[place] Edward Cheondoism Nnabuife [facility] UNK - Ambulatory Encounter Tiara Christianson MedAdherence [facility] UNK - Ambulatory Encounter Bhavya Pedersen MedAdherence [facility] UNK - Ambulatory Encounter Bhavya Pedersen MedAdherence LinkLogic [facility] UNK - Ambulatory Encounter Titi Kaitlynn Titi Kaitlynn LinkLogic [facility] UNK - Ambulatory Encounter Chukwlinda Cheondoism Nn[place]uife Edward Cheondoism Nn[place]uife LinkLogic [facility] UNK - Ambulatory Encounter Chukkavin Cheondoism N[place] Edward Cheondoism N[place] LinkLogic [facility] UNK - Ambulatory Encounter Chukkavin Cheondoism N[place] Gautamwlinda Cheondoism Nnabuife [facility] UNK - Ambulatory Encounter Chukwlinda Cheondoism Nn[place]uife Chuodilia Cheondoism Nnabuife [facility] UNK - Ambulatory Encounter Edward Cheondoism Nnabuife Chuodilia Cheondoism Nnabuife [facility] UNK - Ambulatory Encounter Edward Cheondoism Nn[place]uife Edward Cheondoism Nnabuife [facility] UNK - Ambulatory Encounter Comfort Krausa Jamarvidhyawlinda Cheondoism Nnabuife [facility] Cheondoism [facility] [facility] Abdominal distensionAbdominal pain, chronicAscitesUrinary retention - Ambulatory Encounter Tiara Christianson MedAdherence [facility] UNK - Ambulatory Encounter Tiara Christianson [facility] - Ambulatory Encounter Tiara Christianson MedAdherence [facility] UNK - Ambulatory Encounter Comfort Trevino [facility] UNK - Ambulatory Encounter Mae Rodney [facility] UNK - Ambulatory Encounter Fax Status LinkLogic [facility] UNK - Ambulatory Encounter Fax Status LinkLogic [facility] UNK - Ambulatory Encounter Fax Status LinkLogic [facility] UNK - Ambulatory Encounter Fax Status LinkLogic [facility] UNK - Ambulatory Encounter Fax Status LinkLogic [facility] UNK - Ambulatory Encounter Fax Status LinkLogic [facility] UNK - Ambulatory Encounter Chukwuemeka Cheondoism Nnabuife Edward Cheondoism Nnabuife [facility] UNK - Ambulatory Encounter Edward Cheondoism Nnabuife Edward Cheondoism Nnabuife [facility] UNK - Ambulatory Encounter Edward Cheondoism Nnabuife Edward Cheondoism Nnabuife [facility] UNK - Ambulatory Encounter Toma Woods [facility] Mood Disorder, NOS - Ambulatory Encounter Lo Magañaian N[place] Edward Magañaian [place] Vivian Matthews [facility] Depression, majorSuicidal ideation - Ambulatory Encounter Comfort Trevino LinkLog [facility] UNK - Ambulatory Encounter Tiara Winslow [facility] Services UNK - Ambulatory Encounter Bhavya Pedersen MedAdherence [facility] UNK - Ambulatory Encounter Bhavya Pedersen MedAdherence LinkLogic [facility] UNK - Ambulatory Encounter Edward Cheondoism Nnabuife Edward Cheondoism Nnabuife [facility] UNK - Ambulatory Encounter Edward Cheondoism N[place] Edward Cheondoism Nnabuife [facility] UNK - Ambulatory Encounter Edward Cheondoism N[place]ife Edward Cheondoism Nnabuife [facility] UNK - Ambulatory Encounter Edward Cheondoism N[place] Edward Cheondoism Nnabuife [facility] UNK - Ambulatory Encounter Chuodilia Cheondoism N[place] Edward Cheondoism Nnabuife [facility] UNK - Ambulatory Encounter Gill Leon Cheondoism N[place] Edward Cheondoism Nnabuife [facility] UNK - Ambulatory Encounter Loly Winslow [facility] UNK - Ambulatory Encounter Tiara [facility] - [facility] Encounter Edward Whiteabuife Edward Magañaian Nnabuife [facility] UNK - Ambulatory Encounter Bhavya Pedersen MedAdherence [facility] UNK - Ambulatory Encounter Bhavya Pedersen MedAdherence LinkLogic [facility] UNK - Ambulatory Encounter Edward Whiteabuife Edward Roa Nnabuife Tab Matthews [facility] UNK - Ambulatory Encounter Comfort Trevino LinkLogic [facility] UNK - Ambulatory Encounter Edward Whiteabuife Edward Cheondoism Nnabuife [facility] UNK - Ambulatory Encounter Edward Whiteabuife Edward Cheondoism Nnabuife [facility] UNK - Ambulatory Encounter Edward Whiteabuinasir Roa Nnabuife [facility] UNK - Ambulatory Encounter Edward Roa Nnabuife [facility] UNK - Ambulatory Encounter Comfort Roa N[place]uife Edward Roa Nnabuife [facility] COPD with exacerbation - Ambulatory Encounter Tiara Christianson MedAdherence [facility] UNK - Ambulatory Encounter Tiara Christianson MedAdherence Loly Winslow [facility] Services UNK - Ambulatory Encounter Tiara Christianson MedAdherence [facility] UNK - Ambulatory Encounter Edward Whiteabjaimie Whiteabuife [facility] UNK - Ambulatory Encounter Edward Whiteabjaimie Roa Nnabuife [facility] UNK - Ambulatory Encounter Gill Whiteabuinasir Whiteabuife [facility] UNK - Ambulatory Encounter Loly Winslow Donna Sabiha [facility] UNK - Ambulatory Encounter Edward Roa Nnabuife [facility] UNK - Ambulatory Encounter Loly Winslow Donna Sabiha [facility] UNK - Ambulatory Encounter Fax Status [facility] UNK - Ambulatory Encounter Fax Status [facility] UNK - Ambulatory Encounter Fax Status [facility] UNK - Ambulatory Encounter Fax Status [facility] UNK - Ambulatory Encounter Fax Status [facility] UNK - Ambulatory Encounter Fax Status [facility] UNK - Ambulatory Encounter Titi Kaitlynn Titi Kaitlynn [facility] UNK - Ambulatory Encounter Titi Kaitlynn Titi Kaitlynn [facility] UNK - Ambulatory Encounter Titi Kaitlynn Titi Kaitlynn [facility] UNK - Ambulatory Encounter Lo Gu Titi Kaitlynn Titi Kaitlynn [facility] MUSCLE SPASMEAR PAIN, RIGHTCandidal vaginitisOtitis media, acute - Ambulatory Encounter Satinder Gu [facility] UNK - Ambulatory Encounter Fax Status [facility] UNK - Ambulatory Encounter Fax Status [facility] UNK - Ambulatory Encounter Fax Status [facility] UNK - Ambulatory Encounter Bhavya Palacio [facility] UNK - Ambulatory Encounter Edward Whiteabjaimie Whiteabjaimie [facility] UNK - Ambulatory Encounter Satinder Matthews [facility] Breast abnormal findingsChronic bronchitisBMI 50.0-59.9 - Ambulatory Encounter Comfort Trevino [facility] UNK - Ambulatory Encounter Tiara Christianson MedAdherence [facility] UNK - Ambulatory Encounter Tiara Christianson MedAdherence [facility] UNK - Ambulatory Encounter Bhavya Pedersen MedAdherence [facility] UNK - Ambulatory Encounter Bhavya Pedersen MedAdherence [facility] UNK - Ambulatory Encounter Madhumita Sierra [facility] UNK - Ambulatory Encounter Lo Sierra [facility] UNK - Ambulatory Encounter Bhavya Pedersen MedAdherence Stephanie Hernandez [facility] Contact Center UNK - Ambulatory Encounter Madhumita Sierra [facility] UNK - Ambulatory Encounter Madhumita Sierra [facility] UNK - Ambulatory Encounter Madhumita Sierra [facility] UNK - Ambulatory Encounter Nupur Chong [facility] UNK - Ambulatory Encounter Nupur Chong [facility] UNK - Ambulatory Encounter Edwin Umana [facility] UNK - Ambulatory Encounter Edwin Umana [facility] UNK - Ambulatory Encounter Edwin Umana [facility] UNK - [facility] MORBID OBESITYOtitis media, acute - Ambulatory Encounter Fabricio Beard [facility] UNK - Ambulatory Encounter Lo Esquivel [facility] UNK - Ambulatory Encounter Lo Lucasssica Gamino [facility] Candidal vaginitis - Ambulatory Encounter Lo Esquivel [facility] UNK - Ambulatory Encounter Breanasonia Rosario [facility] UNK - Ambulatory Encounter Breana Rosario [facility] UNK - Ambulatory Encounter Mary Soto [facility] UNK - Ambulatory Encounter Fabricio Beard [facility] UNK - Ambulatory Encounter Bria Young [facility] UNK - [facility] - [facility]ulatory Encounter Fabricio Lopezabel [facility] - Ambulatory Encounter Gita Dewey [facility] UNK - Ambulatory Encounter Comfort Trevino [facility] UNK - Ambulatory Encounter [facility] En[facility] Comfort Trevino [facility] UNK - Ambulatory Encounter Carmelina Gu [facility] UNK - Ambulatory Encounter Jan Johnson [facility] Relations Manager UNK - Ambulatory Encounter Fax Status [facility] UNK - Ambulatory Encounter Fax Status [facility]ic [facility] UNK - Ambulatory Encounter Fax Status [facility] UNK - Ambulatory Encounter Deniz Lira [facility] UNK - [facility] Encounter Comfort Trevino [facility] UNK - Ambulatory Encounter Comfort Trevino [facility] UNK - Ambulatory Encounter Comfort Trevino [facility] UNK - Ambulatory Encounter Fax Status [facility] UNK - Ambulatory Encounter Fax Status [facility] UNK - Ambulatory Encounter Comfort Trevino [facility] UNK - Ambulatory Encounter Fax Status [facility] UNK - Ambulatory Encounter Fax Status [facility] UNK - Ambulatory Encounter Comfort Trevino [facility] UNK - Ambulatory Encounter Comfort Trevino [facility] UNK - Ambulatory Encounter Comfort Trevino [facility] UNK - Ambulatory Encounter Comfort Trevino [facility] UNK - Ambulatory Encounter Kimberly Feldman [facility] UNK - Ambulatory Encounter Kimberly Trevino [facility] UNK - Ambulatory Encounter Tab Charlene [facility] UNK - Ambulatory Encounter Fax Status [facility] UNK - Ambulatory Encounter Fax Status [facility] UNK - Ambulatory Encounter Fax Status [facility]Log[facility] UNK - Ambulatory Encounter Kimberly Trevino [facility] UNK - Ambulatory Encounter Comfort Trevino [facility] UNK - Ambulatory Encounter Comfort Trevino [facility] - Ambulatory Encounter Fax Status [facility] UNK - Ambulatory Encounter Jenny Gaston [facility] UNK - Ambulatory Encounter Fax Status [facility] UNK - Ambulatory Encounter Fax Status [facility] UNK - Ambulatory Encounter Comfort Trevino [facility] UNK - Ambulatory Encounter Kimberly Trevino [facility] UNK - Ambulatory Encounter Comfort Trevino [facility] Kimberly Jorgensen [facility] UNK - Ambulatory Encounter Jenny Gaston [facility] UNK - Ambulatory Encounter Gosia Trevino [facility] UNK - Ambulatory Encounter Comfort Trevino LinkLogedward Mayes [facility] UNK - Ambulatory Encounter Comfort Tellez Ward [facility] CHRONIC OBSTRUCTIVE PULMONARY DISEASE, ACUTE EXACERBATIONCHFSLEEP APNEA - Ambulatory Encounter [facility] En[facility] - Ambulatory Encounter Fax Status [facility] - Ambulatory Encounter Fax Status [facility] UNK - Ambulatory Encounter Fax Status [facility] UNK - Ambulatory Encounter Fax Status [facility] UNK - Ambulatory Encounter Fax Status [facility] UNK - Ambulatory Encounter Fax Status [facility] UNK - Ambulatory Encounter Jenny Gaston [facility] UNK - Ambulatory Encounter Thea Puppala Thea Tellez Ward [facility] LOW BACK PAIN - Ambulatory Encounter Sabra Stephen [facility] UNK - Ambulatory Encounter Sabra Mitchell [facility] UNK - Ambulatory Encounter Ernesto Gaffney [facility] DEPENDENT EDEMA, LEGS - Ambulatory Encounter Bhavya CisnerosAdherence [facility] UNK - Ambulatory Encounter Bhavya Pedersen [facility]AdherJohn [facility] UNK - Ambulatory Encounter Jonelle [facility] - [facility] Encounter Jonelle [facility] UNK - Ambulatory Encounter Jonelle [facility] UNK - Ambulatory Encounter Jonelle [facility] UNK - Ambulatory Encounter Malena Isabel [facility] UNK - Ambulatory Encounter Ernesto Matthews [facility] EAR PAIN, RIGHTBLURRED VISIONHEARING DEFICIT - Ambulatory Encounter Orthodoxy Preload LinkLogic [facility] UNK - Ambulatory Encounter Orthodoxy Preload LinkLogic [facility] UNK - Ambulatory Encounter Orthodoxy Preload LinkLogic [facility] UNK - Ambulatory Encounter Orthodoxy Preload LinkLogic [facility] UNK - Ambulatory Encounter Orthodoxy Preload LinkLogic [facility] UNK - Ambulatory Encounter Orthodoxy Preload LinkLog[facility] UNK - Ambulatory Encounter Orthodoxy Preload LinkLogic [facility] UNK - Ambulatory Encounter Orthodoxy Preload LinkLogic [facility] UNK - Ambulatory Encounter Orthodoxy Preload LinkLogic [facility] UNK - Ambulatory Encounter Orthodoxy Preload [facility] UNK - Ambulatory Encounter Orthodoxy Preload [facility] UNK - Ambulatory Encounter Orthodoxy Preload [facility] UNK - Ambulatory Encounter Orthodoxy Preload [facility] UNK - Ambulatory Encounter Orthodoxy Preload [facility] UNK - Ambulatory Encounter Orthodoxy Preload [facility] UNK - Ambulatory Encounter Orthodoxy Preload [facility] UNK - Ambulatory Encounter Orthodoxy Preload [facility] UNK - Ambulatory Encounter Orthodoxy Preload [facility] UNK - Ambulatory Encounter Orthodoxy Preload [facility] UNK - Ambulatory Encounter Orthodoxy Preload [facility] UNK - Ambulatory Encounter Orthodoxy Preload [facility] UNK - Ambulatory Encounter Orthodoxy Preload [facility] UNK - Ambulatory Encounter Orthodoxy Preload [facility] UNK - Ambulatory Encounter Orthodoxy Preload [facility] UNK - Ambulatory Encounter Orthodoxy Preload [facility] UNK - Ambulatory Encounter Orthodoxy Preload [facility] UNK - Ambulatory Encounter Orthodoxy Preload [facility] UNK - Ambulatory Encounter Orthodoxy Preload [facility] UNK - Ambulatory Encounter Orthodoxy Preload [facility] UNK - Ambulatory Encounter Orthodoxy Preload [facility] UNK - Ambulatory Encounter Orthodoxy Preload [facility] UNK - Ambulatory Encounter Orthodoxy Preload [facility] UNK - Ambulatory Encounter Orthodoxy Preload [facility] UNK - Ambulatory Encounter Orthodoxy Preload [facility] UNK - Ambulatory Encounter Orthodoxy Preload [facility] UNK - Ambulatory Encounter Orthodoxy Preload [facility] UNK - Ambulatory Encounter Orthodoxy Preload [facility] UNK - Ambulatory Encounter Orthodoxy Preload [facility] UNK - Ambulatory Encounter Orthodoxy Preload [facility] UNK - Ambulatory Encounter Orthodoxy Preload [facility] UNK - Ambulatory Encounter Orthodoxy Preload [facility] UNK - Ambulatory Encounter Orthodoxy Preload [facility] UNK - Ambulatory Encounter Orthodoxy Preload [facility] UNK - Ambulatory Encounter Orthodoxy Preload [facility] UNK - Ambulatory Encounter Orthodoxy Preload LinkLogic [facility] UNK - Ambulatory Encounter Orthodoxy Preload LinkLogic [facility] UNK - Ambulatory Encounter Orthodoxy Preload [facility] UNK - Ambulatory Encounter Orthodoxy Preload [facility] UNK - Ambulatory Encounter Orthodoxy Preload [facility] UNK - Ambulatory Encounter Orthodoxy Preload [facility] UNK - Ambulatory Encounter Orthodoxy Preload [facility] UNK - Ambulatory Encounter Orthodoxy Preload [facility] UNK - Ambulatory Encounter Orthodoxy Preload Link[facility] UNK - Ambulatory Encounter Orthodoxy Preload LinkLogic [facility] UNK - Ambulatory Encounter Orthodoxy Preload LinkLogic [facility] UNK - Ambulatory Encounter Orthodoxy Preload LinkLogic [facility] UNK - Ambulatory Encounter Orthodoxy Preload LinkLogic [facility] UNK - Ambulatory Encounter Orthodoxy Preload LinkLogic [facility] UNK - Ambulatory Encounter Orthodoxy Preload LinkLogic [facility] UNK - Ambulatory Encounter Orthodoxy Preload LinkLogic [facility] UNK - Ambulatory Encounter Orthodoxy Preload LinkLogic [facility] UNK - Ambulatory Encounter Orthodoxy Preload LinkLogic [facility] UNK - Ambulatory Encounter Orthodoxy Preload LinkLogic [facility] UNK - Ambulatory Encounter Orthodoxy Preload LinkLogic [facility] UNK - Ambulatory Encounter Orthodoxy Preload LinkLogic [facility] UNK - Ambulatory Encounter Orthodoxy Preload [facility] UNK - Ambulatory Encounter Orthodoxy Preload [facility] UNK - Ambulatory Encounter Orthodoxy Preload [facility] UNK - Ambulatory Encounter Sharpe Gulshan Sharpe Vo [facility] UNK - Ambulatory Encounter Orthodoxy Preload [facility] UNK - Ambulatory Encounter Orthodoxy Preload [facility] UNK - Ambulatory Encounter Orthodoxy Preload [facility] UNK - Ambulatory Encounter Orthodoxy Preload [facility] UNK - Ambulatory Encounter Orthodoxy Preload [facility] UNK - Ambulatory Encounter Orthodoxy Preload [facility] UNK - Ambulatory Encounter Orthodoxy Preload [facility] UNK - Ambulatory Encounter Orthodoxy Preload [facility] UNK - Ambulatory Encounter Orthodoxy Preload [facility] UNK - Ambulatory Encounter Orthodoxy Preload [facility] UNK - Ambulatory Encounter Orthodoxy Preload [facility] UNK - Ambulatory Encounter Orthodoxy Preload [facility] UNK - Ambulatory Encounter Orthodoxy Preload [facility] UNK - Ambulatory Encounter Orthodoxy Preload [facility] UNK - Ambulatory Encounter Orthodoxy Preload [facility] UNK - Ambulatory Encounter Orthodoxy Preload [facility] UNK - Ambulatory Encounter Orthodoxy Preload [facility] UNK - Ambulatory Encounter Orthodoxy Preload [facility] UNK - Ambulatory Encounter Orthodoxy Preload [facility] UNK - Ambulatory Encounter Orthodoxy Preload [facility] UNK - Ambulatory Encounter Orthodoxy Preload [facility] UNK - Ambulatory Encounter Orthodoxy Preload [facility] UNK - Ambulatory Encounter Orthodoxy Preload [facility] UNK - Ambulatory Encounter Orthodoxy Preload [facility] UNK - Ambulatory Encounter Orthodoxy Preload [facility] UNK - Ambulatory Encounter Orthodoxy Preload [facility] UNK - Ambulatory Encounter Orthodoxy Preload [facility] UNK - Ambulatory Encounter Orthodoxy Preload [facility] UNK - Ambulatory Encounter Orthodoxy Preload [facility] UNK - Ambulatory Encounter Orthodoxy Preload [facility] UNK - Ambulatory Encounter Orthodoxy Preload [facility] UNK - Ambulatory Encounter Orthodoxy Preload [facility] UNK - Ambulatory Encounter Orthodoxy Preload LinkLogic [facility] UNK - Ambulatory Encounter Orthodoxy Preload LinkLogic [facility] UNK - Ambulatory Encounter Orthodoxy Preload LinkLogic [facility] UNK - Ambulatory Encounter Orthodoxy Preload LinkLogic [facility] UNK - Ambulatory Encounter Orthodoxy Preload LinkLogic [facility] UNK - Ambulatory Encounter Orthodoxy Preload LinkLogic [facility] UNK - Ambulatory Encounter [facility] UNK - Ambulatory Encounter [facility]reload [facility] UNK - Ambulatory Encounter Orthodoxy Preload LinkLogic [facility] UNK - Ambulatory Encounter [facility] UNK - Ambulatory Encounter Sharpetaniya Barbozauyen [facility] UNK - Ambulatory Encounter Gill Villafuerte [facility] Sharpe Vo Sharpe [facility] UNK - Ambulatory Encounter Gill Macias [facility] Sharpe Vo Sharpe [facility] UNK - Ambulatory Encounter Gill [facility] UNK - Ambulatory Encounter Annemarie Batistaen [facility]shan [facility] - [facility] Encounter Gill Villafuerte [facility] UNK - Ambulatory Encounter Gill Orozco Noy Gutierrez [facility] COPDNICOTINE ADDICTIONSARCOIDOSISHYPERTENSIONMUSCLE SPASM - Ambulatory Encounter Ernesto Tomlin [facility] UNK VITAL SIGNS Date Observation [...] " pulse rate E&M 98 /min [place] Cheondoism [place] " temperature site oral Sheryl Odonnell " temperature E&M 98.3 [degF] Sheryl Odonnell " weight E&M 319 lbs. Sheryl Odonnell " weight in kilograms E&M 145 kg Sheryl Odonnell " height E&M 61 [in_i] Sheryl Odonnell " height in centimeters E&M 154.94 cm Sheryl Odonnell method used to obtain blood pressure automatic Francesca M Lebron " Blood Pressure Position 01 sitting Francesca Ernesto Wagonerz " blood pressure, site #1 left arm Francesca M Lebron " oxygen saturation, oximetry 95 % Francesca M Lebron " blood pressure, diastolic 83 mm[Hg] Francesca M Lebron " blood pressure, systolic 129 mm[Hg] Francesca M Lebron " respiratory rate E&M 18 /min Francesca M Lebron " pulse rate E&M 99 /min [place] Cheondoism [place] " temperature site oral Francesca M Lebron " temperature E&M 98.0 [degF] Francesca M Lebron " weight E&M 326.20 lbs. Francesca M Lebron " weight in kilograms E&M 148.27 kg [facility] " height in centimeters E&M 154.94 cm [facility] " height E&M 61 [in_i] [facility] used to obtain blood pressure automatic [facility] [place] " Blood Pressure Position 01 sitting [facility] " blood pressure, site #1 left arm [facility] " oxygen saturation, oximetry 98 % [facility] " blood pressure, diastolic 84 mm[Hg] [facility] " blood pressure, systolic 135 mm[Hg] [facility] " respiratory rate E&M 18 /min [facility] " pulse rate E&M 98 /min [facility] " temperature site oral [facility] " temperature E&M 98.4 [degF] [facility] " weight E&M 321.80 lbs. [facility] " weight in kilograms E&M 146.27 kg [facility] " height in centimeters E&M 154.94 cm [facility] " height E&M 61 [in_i] [facility]Tr[facility] Hospitalirez oxygen saturation, oximetry 94 % Nupur Chong [...] " blood pressure, systolic 128 mm[Hg] Edward Cheondoism Danny " respiratory rate E&M 17 /min Stephanie [...] height in centimeters E&M 154.94 cm Nupur Cohng oxygen saturation, oximetry 94 % Nupur Chong [...] 154.94 cm Stephanie Chalo oxygen saturation, oximetry 94 % Alayna Chapman [...] " Blood Pressure Position 01 sitting Stephanie Chalo " blood pressure, site #1 left arm [...] " blood pressure, diastolic 70 mm[Hg] Taina Riccardo " blood pressure, systolic 109 mm[Hg] Taina Riccardo " respiratory rate E&M [...] arm Francesca Gamino " temperature site oral Farncesca Gamino " weight E&M 274.38 lbs. Francesca Gamino " weight in kilograms E&M 124.72 kg Francesca Hammondsierrez " height E&M 61 [in_i] Francesca Gamino " height in centimeters E&M 154.94 cm Francesca Stevenson oxygen saturation, oximetry 96 % Francesca Stevenson " blood pressure, diastolic 82 mm[Hg] Francesca [...] blood pressure, site #1 right arm Francesca Hammondsierrez " temperature site oral Francesca Gamino " weight E&M 287.38 lbs. Francesca Gamino " weight in kilograms E&M 130.63 kg Francesca Hammondsierrez " height E&M 61 [in_i] Francesca Hammondsierrez " height in centimeters E&M 154.94 cm Francescalloyd Gamino method used to obtain blood pressure [...] " height in centimeters E&M 154.94 cm Rosalidna Ward " height E&M 61 [in_i] Rosalinda Ward oxygen saturation, oximetry 96 % Loly Winslow " method used to obtain blood pressure automatic Loly Short " Blood Pressure Position 01 sitting Loly Short " blood pressure, site #1 right arm Loly Short " blood pressure, diastolic 92 mm[Hg] Loly Short " blood pressure, systolic 140 mm[Hg] Loly Winslow " respiratory rate E&M 28 /min Loly Short " pulse rate E&M 102 /min Loly Short " temperature site oral Loly Short " temperature E&M 98.2 [degF] Loly Short " weight E&M 290.20 lbs. Loly Winslow [...] " blood pressure, diastolic 74 mm[Hg] Loly Short " blood pressure, systolic 121 mm[Hg] Loly Winslow " respiratory rate E&M 28 /min Loly Winslow " pulse rate E&M 101 /min Loly Winslow " temperature site oral Loly Short " temperature E&M 97.9 [degF] Loly Short " weight E&M 281 lbs. Loly Winslow [...] 98 % [employer] temperature site tympanic Colleen Sanjeev " oxygen saturation, oximetry 95 % Colleen [...] Colleen Pace " temperature E&M 99.9 [degF] Colleenkaylin Gaspars " weight E&M 273.25 lbs. Colleen Pace " weight in kilograms E&M 124.20 kg Colleen Pace " height E&M 61 [in_i] Colleen Sanjeev " height in centimeters E&M 154.94 cm Colleen Pace oxygen saturation, oximetry 97 % Honeytejas Gutierrez " pulse rate E&M 98 /min Honey Gutierrez " weight E&M 272 lbs. Honey Brenda [...] 3.4-10.8 High blood glucose, random 256 mg/dL [facility] " hemoglobin A1C, blood, as % of total hemoglobin 8.3 % [facility] hematocrit, blood 37.6 % Kayla Lipscomb " [...] CAPSULE 1 by mouth twice a day Abisai Crispin Delgado ERYTHROMYCIN 5 MG/GM OPHTHALMIC OINTMENT apply [...] 1 TABLET BY MOUTH TWICE DAILY [facility] MUC[facility] 600 MG ORAL TABLET EXTENDED [...] TAKE 1 TABLET BY MOUTH ONCE DAILY [facility] FREESTYLE LANCETS Use as directed to test blood sugar once daily [facility] ICD CODE E11.9 FREESTYLE LITE TEST IN VITRO STRIP Use as directed to test blood sugar once daily [facility] ICD CODE E11.9 FREESTYLE FREEDOM LITE W/DEVICE KIT Use as directed to test blood sugar once daily [facility] ICD CODE E11.9 BD ULTRA-FINE MICRO PEN [...] 15 MINUTES BEFORE DINNER DAILY Katy Ellsworth [facility], AZITHROMYCIN 250 MG ORAL TABLET [...] a Day to administer insulin Tiara Christianson [facility] Updated directions IPRATROPIUM/ ALBUTER EMI USE 1 AMPULE IN NEBULIZER EVERY 4 HOURS NEEDED FOR WHEEZING Tiara Christianson [facility] AZITHROMYCIN 250 MG ORAL TABLET 2 [...] take 1 By Mouth daily - Edward Whiteabjaimie PREDNISONE 20MG TAB TAKE 1 TABLET BY MOUTH ONCE DAILY Edward Boyceuinasir PROVENTIL HFA 108 (90 Base) MCG/ACT INHALATION [...] E&M Single. Not homeless. Born in [facility]. City: [facility]. State: [place]. Not employed. Retired. Highest education level: high school graduate. Gender of partner(s): male. Sheryl Odonnell " social history reviewed E&M reviewed today Sheryl Odonnell " assessment of health literacy (NCQA PCM 2014 Standards, 3C10) Adequate Sheryl Odonnell " [...] E&M Single. Not homeless. Born in [facility]. City: [facility]. State: [place]. Not employed. Retired. Highest education level: high school graduate. Gender of partner(s): male. Francesca Diana " social history reviewed E&M reviewed today Francesca Diana " assessment of health literacy ([facility] 2014 Standards, 3C10) Adequate Francesca Bergmanirez " passive cigarette smoke exposure Yes Francesca Diana " smoking status former smoker Francesca Wagonerz " Exercise Program Referral T Francesca Wagonerz " Weight Management Counseling Provided T Francesca Bergmanirez " Nutrition intervention T Francesca Diana time of call 07/18/2019 2:19 PM Eusebia Gagnon social history E&M Single. Not homeless. Born in [facility]. City: [facility]. State: [place]. Not employed. Retired. Highest education level: high school graduate. Gender of partner(s): male. Francesca Diana " social history reviewed E&M reviewed today Francesca Diana " assessment of health literacy ([facility] 2014 Standards, 3C10) Adequate Francesca Diana " passive cigarette smoke exposure Yes Francesca Diana " smoking status former smoker Francesca Diaan " Exercise Program Referral T Francesca Orozco Lebron " Weight Management Counseling Provided T Francesca Orozco Lebron " Nutrition intervention T Francescalloyd Diana Exercise Program Referral T Satinder Harman " Weight Management Counseling Provided T Satinder Harman " Nutrition intervention T Satinder Harman drug use, illicit Never Nupur Chong " alcohol use Currently Nupur Chong " social history E&M Single. Not homeless. Born in [facility]. City: [facility]. State: [place]. Not employed. Retired. Highest education level: high school graduate. Gender of partner(s): male. Nupur Chogn " social history reviewed E&M reviewed today Nupur Chong " assessment of health literacy ([facility] 2014 Standards, 3C10) Adequate Nupur Chong " passive cigarette smoke exposure Yes Nupur Chong " smoking status former smoker Nupur Chong time of call 04/02/2019 8:30 AM Daphney Espitia drug use, illicit Never Stephanie Isabel " alcohol use Currently Stephanie Isabel " social history E&M Single. Not homeless. Born in [facility]. City: [facility]. State: [place]. Not employed. Retired. Highest education level: high school graduate. Gender of partner(s): male. Stephanie Isabel " social history reviewed E&M reviewed today Stephanie Isabel " assessment of health literacy ([facility] 2014 Standards, 3C10) Adequate Stephanie Isabel " passive cigarette smoke exposure Yes Stephanie Isabel " smoking status former smoker Stephanie Isabel " Exercise Program Referral T Stephanie Isabel " Weight Management Counseling Provided T Stephanie Isabel " Nutrition intervention T Stephanie Isabel sunscreen use No Chukwuemeka Cheondoism Nnabuife " Exercise Program Referral T Chukwuemeka Cheondoism Nnabuife " Weight Management Counseling Provided T Chukwuemejose j Cheondoism Nnabuife " Nutrition intervention T Chukwuemeka Cheondoism Nnabuife " drug use, illicit Never Nupur Chong " alcohol use Currently Nupur Chong " social history E&M Single. Not homeless. Born in [facility]. City: [facility]. State: [place]. Not employed. Retired. Highest education level: high school graduate. Gender of partner(s): male. Nupur Chong " social history reviewed E&M reviewed today Nupur Chong " assessment of health literacy ([facility] 2014 Standards, 3C10) Adequate Nupur Chong [...] E&M Single. Not homeless. Born in [facility]. City: [facility]. State: [place]. Not employed. Retired. Highest education level: high school graduate. Gender of partner(s): male. Nupur Chong " social history reviewed E&M reviewed today Nupur Chong " assessment of health literacy ([facility] 2014 Standards, 3C10) Adequate Nupur Chong " passive cigarette smoke exposure No Nupur Chong " smoking status former smoker Nupur Chong time of call 11/21/2018 9:45 AM Joaquim Engel drug use, illicit Never Stephanie Chalo " alcohol use Currently Stephanie Chalo " social history E&M Single. Not homeless. Born in [facility]. City: [facility]. State: [place]. Not employed. Retired. Highest education level: high school graduate. Gender of partner(s): male. Stephanie Isabel " social history reviewed E&M reviewed today Stephanie Isabel " assessment of health literacy ([facility] 2014 Standards, 3C10) Adequate Stephanie Isabel [...] E&M Single. Not homeless. Born in [facility]. City: [facility]. State: [place]. Not employed. Retired. Highest education level: high school graduate. Gender of partner(s): male. Hafsa Will " social history reviewed E&M reviewed today Hafsa Will " assessment of health literacy ([facility] 2014 Standards, 3C10) Adequate Hafsa Will [...] E&M Single. Not homeless. Born in [facility]. City: [facility]. State: [place]. Not employed. Retired. Highest education level: high school graduate. Gender of partner(s): male. Violette Pool " social history reviewed E&M reviewed today Violette Pool " assessment of health literacy ([facility] 2014 Standards, 3C10) Adequate Violette Pool " passive cigarette smoke exposure No Violette Pool " smoking status former smoker Violette Pool alcohol use Currently Hafsa Will " drug use, illicit Never Hafsa Will " social history E&M Single. Not homeless. Born in [facility]. City: [facility]. State: [place]. Not employed. Retired. Highest education level: high school graduate. Gender of partner(s): male. Hafsa Will " social history reviewed E&M reviewed today Hafsa Will " assessment of health literacy ([facility] 2014 Standards, 3C10) Adequate Hafsa Will [...] E&M Single. Not homeless. Born in [facility]. City: [facility]. State: [place]. Not employed. Retired. Highest education level: high school graduate. Gender of partner(s): male. Priya Jerad " social history reviewed E&M reviewed today Priya Jerad " assessment of health literacy ([facility] 2014 Standards, 3C10) Adequate Priya Jerad " is there any chance that you could be ? No Priya Ejrad " passive cigarette smoke exposure Yes Priya [...] j Magañaian Nnabuife " Nutrition intervention T Bryanmejose j Cheondoism Nnabuife " social history E&M Single. Not homeless. Born in [facility]. City: [facility]. State: [place]. Not employed. Retired. Highest education level: high school graduate. Gender of partner(s): male. Alayna Chapman " social history reviewed E&M reviewed today Alayna Chapman " assessment of health literacy ([facility] 2014 Standards, 3C10) Adequate Alayna Chapman " passive cigarette smoke exposure Yes Alayna Chapman " smoking status former smoker Alayna Chapman time of call 04/24/2018 11:41 AM Gayle Joey Serrano drug use, illicit Never Stephanie Chalo " alcohol use Currently Stephanie Chalo " social history E&M Single. Not homeless. Born in [facility]. City: [facility]. State: [place]. Not employed. Retired. Highest education level: high school graduate. Gender of partner(s): male. Stephanie Isabel " social history reviewed E&M reviewed today Stephanie Isabel " assessment of health literacy ([facility] 2014 Standards, 3C10) Adequate Stephanie Isabel [...] E&M Single. Not homeless. Born in [facility]. City: [facility]. State: [place]. Not employed. Retired. Highest education level: high school graduate. Gender of partner(s): male. Alayna Chapman " social history reviewed E&M reviewed today Alayna Chapman " assessment of health literacy ([facility] 2014 Standards, 3C10) Adequate Alayna Chapman " passive cigarette smoke exposure No Alayna Chapman " smoking status former smoker Alayna Chapman " Exercise Program Referral T Alayna Chapman " Weight Management Counseling Provided T Alayna Chapman " Nutrition intervention T Alayna Chapman Exercise Program Referral T Chukwuemeka Cheondoism Nnabuife " Weight Management Counseling Provided T Chukwuemeka Cheondoism Nnabuife " Nutrition intervention T Chukwuemeka Cheondoism Nnabuife " alcohol use Currently Alayna Chapman " social history E&M Single. Not homeless. Born in [facility]. City: [facility]. State: [place]. Not employed. Retired. Highest education level: high school graduate. Gender of partner(s): male. Alayna Chapman " social history reviewed E&M reviewed today Alayna Chapman " assessment of health literacy ([facility] 2014 Standards, 3C10) Adequate Alayna Chapman " passive cigarette smoke exposure No Alayna Chapman " smoking status former smoker Alayna Chapman " assessment of health literacy ([facility] 2014 Standards, 3C10) Adequate Alayna Chapman " drug use, illicit Never Alayna Chapman " alcohol use Currently Alayna Krausa " social history E&M Single. Not homeless. Born in [facility]. City: [facility]. State: [place]. Not employed. Retired. Highest education [...] Adult Children (23, 21, and 19). Toma Mcclellandez drug use, illicit Never Vivian Sin " alcohol use Currently Vivian Sin " social history E&M Single. Not homeless. Born in [facility]. City: [facility]. State: [place]. Not employed. Retired. Highest education [...] E&M Single. Not homeless. Born in [facility]. City: [facility]. State: [place]. Not employed. Retired. Highest education [...] T Edward Boyceuinasir " Nutrition intervention T Abisaijose j Crispin Boyceuinasir " social history E&M Single. Not homeless. Born in [facility]. City: [facility]. State: [place]. Not employed. Retired. Highest education level: high school graduate. Gender of partner(s): male. Gautamkavin Crispin Boyceuinasir " social history reviewed E&M reviewed today Abisaijose j Crispin Boyceuinasir " drug use, illicit Never Nupur Chong " alcohol use Currently Nupur Chong " passive cigarette smoke exposure Yes Nupur Chong " smoking status former smoker Nupur Chong time of call 09/02/2017 9:48 AM [facility] s[facility] use No Abisaijose j Crispin Boyceuinasir " social history E&M Single. Not homeless. Born in [facility]. City: [facility]. State: [place]. Not employed. Retired. Highest education level: high school graduate. Gender of partner(s): male. Edward Crispin Boyceuinasir " social history reviewed E&M reviewed today Jamaromarallanjsoe j Crispin Boyceuinasir " passive cigarette smoke exposure Yes [...] E&M Single. Not homeless. Born in [facility]. City: [facility]. State: [place]. Not employed. Retired. Highest education level: high school graduate. Gender of partner(s): male. Edward Crispin Boyceuinasir " social history reviewed E&M reviewed today Edward Boyceuinasir " Exercise Program Referral T Edward Whiteabuinasir " Weight Management Counseling Provided T Edward Whiteabuife " Nutrition intervention Miguel A Roldankwlinda Roa Nnabuife time of call 07/08/2017 10:03 AM Ana [...] E&M Single. Not homeless. Born in [facility]. City: [facility]. State: [place]. Not employed. Retired. Highest education [...] E&M Single. Not homeless. Born in [facility]. City: [facility]. State: [place]. Not employed. Retired. Highest education [...] Living (ADLs, IADLs, etc.) Decrease in ADL Jamarlinda Delgado MENTAL STATUS Date Observation Value Provider assessment of judgment and insight E&M intact Bryannhjose j Delgado " mental status examination: orientation E&M oriented to time, place, and person Edward Delgado " assessment of mood and affect E&M no depression, anxiety, or agitation [facility] Crispin Delgado " Generalized Anxiety Disorder Questionnaire - [...] assessment of judgment and insight E&M intact [facility] Crispin Boyceui " mental status examination: orientation E&M oriented to time, place, and person Chuvidhyalinda Cheondoism Nnabuife " assessment of mood and affect E&M no depression, anxiety, or agitation Chuodilia Cheondoism Nnabuife " Generalized Anxiety Disorder Questionnaire - Question 2 0 Francesca Orozco Lebron " Generalized Anxiety Disorder Questionnaire - Question 1 0 Francesca Orozco Lebron assessment of judgment and insight E&M intact Chuodilia Cheondoism Nnabuife " mental status examination: orientation E&M oriented to time, place, and person Chuklinda Cheondoism Nnabuife " assessment of mood and affect E&M no depression, anxiety, or agitation Chulinda Cheondoism Nnabuife " Generalized Anxiety Disorder Questionnaire - Question 2 0 Francesca Ernesto Lebron " Generalized Anxiety Disorder Questionnaire - Question 1 0 Francesca M Lebron assessment of judgment and insight E&M intact Edward Cheondoism Nnabuife " assessment of mood and affect E&M no depression, anxiety, or agitation [facility] " mental status examination: orientation E&M oriented to time, place, and person Chuklinda Cheondoism Nnabui " Generalized Anxiety Disorder Questionnaire - Question 2 0 Nupur Chong " Generalized Anxiety Disorder Questionnaire - Question 1 0 Nupur Chong assessment of judgment and insight E&M intact [facility] Che[facility] Nnabui " mental status examination: orientation E&M oriented to time, place, and person Chulinda Cheondoism Nnabuife " assessment of mood and affect E&M no depression, anxiety, or agitation [facility] Cheondoism Nnabuife " Generalized Anxiety Disorder Questionnaire - Question 2 0 Stephanie Isabel " Generalized Anxiety Disorder Questionnaire - Question 1 0 Stephanie Isabel assessment of judgment and insight E&M intact Edward Cheondoism Nnabuife " mental status examination: orientation E&M oriented to time, place, and person Chulinda Cheondoism Nnabuife " assessment of mood and affect E&M anxious, depressed mood [facility] Cheondoism Nnabuife " Generalized Anxiety Disorder Questionnaire - Question 2 0 Nupur Chong " Generalized Anxiety Disorder Questionnaire - Question 1 0 Nupur Chong assessment of judgment and insight E&M intact Satinder Harman " mental status examination: orientation E&M oriented to time, place, and person Satinderchristopher Harman " assessment of mood and affect E&M anxious, depressed mood Satinderchristopher Harman " Generalized Anxiety Disorder Questionnaire - Question 2 0 Nupur Chong " Generalized Anxiety Disorder Questionnaire - Question 1 0 Nupur Chong assessment of judgment and insight E&M intact Edward Cheondoism abui " mental status examination: orientation E&M oriented to time, place, and person [facility] Cheondoism Nnabui " assessment of mood and affect E&M anxious, depressed mood [facility]byterianfabi[facility]nhjose j [facility]ism [facility] " Generalized Anxiety Disorder Questionnaire - Question 2 0 Stephanie Isabel " Generalized Anxiety Disorder Questionnaire - Question 1 0 Stephanie Isabel assessment of judgment and insight E&M intact Edward Cheondoism abui " mental status examination: orientation E&M oriented to time, place, and person [facility]byterianlinda Cheondoism abui " assessment of mood and affect E&M anxious, depressed mood [facility]linda Cheondoism abui mental status examination: orientation E&M alert and [...] of judgment and insight E&M intact Edward Cheondoism abui " mental status examination: orientation E&M oriented to time, place, and person [facility]linda Cheondoism abui " assessment of mood and affect E&M anxious, depressed mood [facility]byterianlinda Cheondoism Nnabuife assessment of judgment and insight E&M intact [facility] " mental status examination: orientation E&M oriented to time, place, and person [facility]linda [facility] " assessment of mood and affect E&M anxious, depressed mood Chulinda Cheondoism Nnabui " Generalized Anxiety Disorder Questionnaire - Question 2 0 Priya Mars " Generalized Anxiety Disorder Questionnaire - Question 1 0 Priyaerin Mars assessment of judgment and insight E&M intact Edward [facility]ondoism [facility] " mental status examination: orientation E&M oriented to time, place, and person Chulinda Cheondoism Nnabuife " assessment of mood and affect E&M anxious, depressed mood [facility]byterianfabi[facility]nhjose j Cheondoism Nnabui " Generalized Anxiety Disorder Questionnaire - Question 2 0 Alayna Chapman " Generalized Anxiety Disorder Questionnaire - Question 1 0 Alayna Chapman assessment of judgment and insight E&M intact Edward Cheondoism N[facility] " mental status examination: orientation E&M oriented to time, place, and person Chulinda [facility]ondoism [facility] " assessment of mood and affect E&M anxious, depressed mood [facility]byterianlinda [facility]ondoism [facility] " Generalized Anxiety Disorder Questionnaire - Question 2 0 Stephanie Isabel " Generalized Anxiety Disorder Questionnaire - Question 1 0 Stephanie Isabel assessment of judgment and insight E&M intact Edward Cheondoism N[facility] " mental status examination: orientation E&M oriented to time, place, and person [facility]byterianlinda Cheondoism abui " assessment of mood and affect E&M anxious, depressed mood [facility]byterianlinda Cheondoism Nnabui " Generalized Anxiety Disorder Questionnaire - Question 2 0 Alayna Chapman " Generalized Anxiety Disorder Questionnaire - Question 1 0 Alayna Krausa assessment of judgment and insight E&M intact Edward Cheondoism [facility] " mental status examination: orientation E&M oriented to time, place, and person [facility]linda [facility] " assessment of mood and affect E&M anxious, depressed mood [facility]linda Cheondoism Nnabuife " Generalized Anxiety Disorder Questionnaire - Question 2 0 Alayna Chapman " Generalized Anxiety Disorder Questionnaire - Question 1 0 Alayna Chapman assessment of judgment and insight E&M intact [facility]byterianfabián[facility] Hospitaljaki Whiteabui " mental status examination: orientation E&M oriented to time, place, and person [facility] Austenui " assessment of mood and affect E&M anxious, depressed mood [facility] " Generalized Anxiety Disorder Questionnaire - Question [...] mood and affect E&M anxious, depressed mood [facility] Whiteabui " assessment of judgment and insight E&M intact [facility] Cindyui " mental status examination: orientation E&M oriented to time, place, and person [facility] " If any problems checked, how difficult [...] assessment of judgment and insight E&M intact [facility] " mental status examination: orientation E&M oriented to time, place, and person [facility] Nnabui " assessment of mood and affect E&M no depression, anxiety, or agitation [facility] Nnabui " Generalized Anxiety Disorder Questionnaire - Question 2 0 Stephanie Isabel " Generalized Anxiety Disorder Questionnaire - Question 1 0 Stephanie Isabel Generalized Anxiety Disorder Questionnaire - Question 2 0 Nupur Chong " Generalized Anxiety Disorder Questionnaire - Question 1 0 Nupur Chong mental status examination: recall E&M intact for recent and remote events [facility] Nnabui " assessment of judgment and insight E&M intact [facility] Nnabui " mental status examination: orientation E&M oriented to time, place, and person [facility] Nnabuife " assessment of mood and affect E&M no depression, anxiety, or agitation [facility] Nnabuife " Generalized Anxiety Disorder Questionnaire - [...] E&M intact for recent and remote events [facility] Nnabuife " mental status examination: orientation E&M oriented to time, place, and person Opallinda Cheondoism Danny " assessment of judgment and insight E&M intact Opallinda Crispin Delgado " assessment of mood and affect E&M no depression, anxiety, or agitation Bryankathya Crispin Delgado " Generalized Anxiety Disorder Questionnaire - [...] affect E&M no depression, anxiety, or agitation Madjordimita Sierra " If any problems checked, how [...] Disorder Questionnaire - Question 1 3 Loly Goldy Generalized Anxiety Disorder Questionnaire - Question 2 0 Colleen Pace " Generalized Anxiety Disorder Questionnaire - Question 1 0 Colleen Pace MEDICAL EQUIPMENT No Information Available FAMILY HISTORY No Information Available INSURANCE PROVIDERS Payer name Policy type / Coverage type Covered libertarian ID [employer] Medicare HMO Medicare HMO [id number] ADVANCE DIRECTIVES No Information Available TREATMENT PLAN [...] - - Est Patient Exp Problem - 01308 Est Patient Exp Problem - 27376 Est Patient Exp Problem - 35912 Finger Stick Glucose Est Patient Exp Problem - 32271 Est Patient Exp Problem - 31127 Est Patient Detailed - 72723 New Patient Intermediate Opth - 63031 Finger Stick Glucose Ear Irrigation Est Patient Exp Problem - 67487 Est Patient Exp Problem - 90305 Retinal Screening Est Patient Well Exam (40 - 64 Yrs) - 09213 Est Patient Detailed - 27127 Est Patient Exp Problem - 28339 Est Patient Exp Problem - 13682 New Patient Comprehensive - 91002 Glucose Stick Est Patient Exp Problem - 12648 Glucose Stick Est Patient Exp Problem - 14902 Prescription Assistance (Non-HIV) Glucose Stick Est Patient Exp Problem - 46262 Endocrinology - Adult - [facility] HEMOGLOBIN A1C - In House Est Patient Exp Problem - 55481 Est Patient Detailed - 25079 Est Patient Exp Problem - 84956 Est Patient Detailed - 42611 IB 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 - Production 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 Diagnostic evaluation (no medical) - 56812 Integrated Behavioral Health Assessment (IBH) Est Patient Exp Problem - 51525 Est Patient Detailed - 73485 Ofc Vst, Est Level V Est Patient Exp Problem - 91958 Est Patient Exp Problem - 77231 Ofc Vst, Est Level IV Est Patient Exp Problem - 93356 Ofc Vst, Est Level V Est Patient Exp Problem - 74522 Est Patient Detailed - 53316 Est Patient Detailed - 67151 ALBUTEROL INHAL ADMIN THRU DME 1MG Est Patient Detailed - 44026 Est Patient Exp Problem - 98844 Est Patient Exp Problem - 06975 Ear Irrigation Est Patient Exp Problem - 37006 Ofc Vst, Est Level III Est Patient Exp Problem - 46052 HISTORY OF PROCEDURES Procedure Date Procedure Name Provider Procedure Notes Status Finger Stick Glucose Gill Villafuerte completed New Patient Intermediate Opt - 91587 Satinder Harman completed Finger Stick Glucose Satinder Harman completed Ear Irrigation Satinder Harman completed Glucose Stick Gill Villafuerte completed Glucose Stick Satinder Harman completed Glucose Stick Gill Villafuerte completed HEMOGLOBIN A1C - In House Comfort Trevino completed [facility] Assessment - Production Finisher Toma Woods completed Diagnostic evaluation (no medical) - 20204 Toma Woods completed ALBUTEROL INHAL ADMIN THRU DME 1MG Deniz Brown completed Ear Irrigation Thea Junior completed GOALS No Information Available HEALTH CONCERNS No Information Available
[2019-09-25] MEDS ORDERED: METHYLPREDNISOLONE SOD SUCC 125 MG/2ML VIAL IV STA (17:51)
[2019-09-25] MEDS ORDERED: IPRATROPIUM BROMIDE 0.02% 2.5 ML NEB NEB STA (17:51)
[2019-09-25] MEDS ORDERED: ALBUTEROL SULF 0.083% NEB SOLN 3 ML NEB NEB STA (17:51)
--- OUTSIDE RECORDS SUMMARY | 2019-09-25 17:51 | XMS REPORT ---
Author Author Admin, [place] Organization Unknown Address Unknown Phone Unavailable PROBLEMS [...] active Edward Roa N[place]abuife Abdominal distension [facility] Mood Disorder, NOS active T[place] Suicidal ideation active [facility] [place] Depression, major active [facility] [place] COPD with exacerbation active Jamarlinda Roa Nnabuife BMI 50.0-59.9 completed - Tiny Vazquez Mckeon Chronic bronchitis active [facility] [place] Breast abnormal findings active Jamarlinda Roa Nnabuife Otitis media, acute completed - [...] NICOTINE ADDICTION active Sharpetaniya Gaffney COPD active Sharpe Vo ENCOUNTERS Date Type Provider Location Encounter Diagnosis - Ambulatory Encounter Kimberly Yeh [facility] UNK - Ambulatory Encounter [facility] - [facility]ulatory Encounter [facility] UNK - Ambulatory Encounter [facility] Status [facility] UNK - Ambulatory Encounter Gill Roa Nnabuife Edward Magañaian Nnabuife [facility] UNK - Ambulatory Encounter Kimberly Jorgensen [facility] UNK - Ambulatory Encounter Kimberly Jorgensen Loly Goldy Leon [employer] [facility] N[place] Edward Roman Catholic N[place] Ofelia Ko [facility] UNK - Ambulatory Encounter Kimberly Jorgensen Camelia [facility] Contact Center UNK - Ambulatory Encounter Edward Whiteabuife Edward Roman Catholic N[place]ab[place] [facility] UNK - Ambulatory Encounter Chuodilia Roman Catholic N[place] dEward Roman Catholic N[place] [facility] UNK - Ambulatory Encounter Edward Roman Catholic N[place] Gautamwlinda Roman Catholic N[place] [facility] UNK - Ambulatory Encounter Gill Leon [employer] Edward Roman Catholic N[place] Sheryl Odonnell [facility] Constipation, drug induced - Ambulatory Encounter Edward Magañaian Nnabuife Edward Roman Catholic Nnabuife Bronson Marroquin MedAdherence, [facility] UNK - Ambulatory Encounter Edward Magañaian Nnabuife Edward Roman Catholic N[place] Danay Langley MedAdherence [facility] UNK - Ambulatory Encounter Violette Salaazr [facility] UNK - Ambulatory Encounter Chuodilia Roa Nnabuinasir Leon Roman [employer] [place] [facility] UNK - Ambulatory Encounter LSJ Lab Support Desktop LinkLogic Edward Roman Catholic Nnabuife Edward Roman Catholic Nnab[place] [facility] UNK - Ambulatory Encounter [facility] - [facility]ulatory Encounter [facility] UNK - Ambulatory Encounter Fax [facility] UNK - Ambulatory Encounter Edward Roa Nnabuinasir Leon Roman Catholic Nnabuife [facility] UNK - Ambulatory Encounter Chuodilia Roman Catholic N[place] Gautamwlinda Roman Catholic N[place] [facility] UNK - Ambulatory Encounter Chuodilia Roman Catholic [place] Edward Roman Catholic N[place] [facility] UNK - Ambulatory Encounter Satinder Leon [employer] Edward Roman [employer] [place] Francesca Ernesto Diana [facility] Hordeolum, internal - Ambulatory Encounter Comfort Marroquin MedAdherence, [facility] UNK - Ambulatory Encounter Comfort Langley MedAdherence [facility] UNK - Ambulatory Encounter Kimberly Delaney UNK - Ambulatory Encounter Gill Marroquin [facility], [facility] - Ambulatory Encounter Edward Whiteabuinasir Leon Roman Catholic Nnabuife [facility] UNK - Ambulatory Encounter Edward Whiteabuinasir Leon Roman Catholic Nnabuife [facility] UNK - Ambulatory Encounter Gill Whiteabuife Edward Roa Nnabuife Francesca Diana [facility] UNK - Ambulatory Encounter Comfort Ellsworth MedAdherence, [facility] UNK - Ambulatory Encounter Comfort Marroquin MedAdherence, [facility] UNK - Ambulatory Encounter Edward [facility] - [facility]ulatory Encounter Comfort Hernandez MedAdherence [facility] UNK - Ambulatory Encounter Fax Status LinkLogic [facility] UNK - Ambulatory Encounter Fax [facility] UNK - Ambulatory Encounter [facility] UNK - Ambulatory Encounter Edward Whiteabuinasir Roa N[facility]abuife [facility] - Ambulatory Encounter Satinder Whiteabuife Edward Roman Catholic Nnabuife [facility] Hypokalemia, mild - Ambulatory Encounter Chuodilia Roman Catholic N[place] Edward Roman Catholic N[place] [facility] UNK - Ambulatory Encounter LSJ Lab Support Desktop LinkLogic Edward Roman Catholic N[place]ab[place] Gautamwlinda Roman Catholic Nnabuife [facility] UNK - Ambulatory Encounter Fax Status [facility] UNK - Ambulatory Encounter [facility] - [facility]ulatory Encounter [facility] - Ambulatory Encounter [facility] UNK - Ambulatory Encounter Edward Roman Catholic Nnabuife Edward Roman Catholic Nnabuife [facility] UNK - Ambulatory Encounter Chuodilia Roman Catholic N[place] Gautamwlinda Roman Catholic N[place] [facility] UNK - Ambulatory Encounter Chuodilia Roman Catholic N[place] Gautamwlinda Roman Catholic N[place]abu[place] [facility] UNK - Ambulatory Encounter Satinder Leon Roman [employer] N[place] Edward Roman Catholic N[place] Sheryl Odonnell [facility] UNK - Ambulatory Encounter Comfort Pedersen [facility] UNK - Ambulatory Encounter Comfort Christianson MedAdherence [facility] UNK - Ambulatory Encounter Tiara Christianson MedAdherence [facility] UNK - Ambulatory Encounter Edward Roa Nnabuife Edward Roman Catholic Nnabuife LinkLogic [facility] UNK - Ambulatory Encounter Osiris Gordon LinkLogic [facility] UNK - Ambulatory Encounter Chuodilia Roman Catholic N[place] Edward Roman Catholic Nnabuife LinkLogic [facility] UNK - Ambulatory Encounter Comfort Christianson MedAdherence [facility] UNK - Ambulatory Encounter Edward Whiteabuife Edward Magañaian Nnabuife [facility] UNK - Ambulatory Encounter Chuodilia Magañaian Nnabuife Edward Roman Catholic Nnabu[place] [facility] UNK - Ambulatory Encounter Chuodilia Roa Nnabuife Edward Roman Catholic Nnabuife [facility] UNK - Ambulatory Encounter Satinder Leon Roman [employer] N[place] Edward Roman Catholic N[place] [facility] Chronic pain syndrome - Ambulatory Encounter Edward Roman Catholic N[place] Edward Roman Catholic Nnabuife [facility] UNK - Ambulatory Encounter LSJ Lab Support Desktop LinkLogic Edward Magañaian Nnabuife Edward Roman Catholic N[place]uife [facility] UNK - Ambulatory Encounter Chukwuemeka Roman Catholic Nnabuinasir Florezwlinda Roa Nnabuinasir [facility] UNK - Ambulatory Encounter Edward Whiteabuinasir Leon Roman Catholic Nnabuife [facility] UNK - Ambulatory Encounter Comfort Roa Nnabuife Edward Roa Nnabuinasir Benítez [facility] Well woman examCerumen impaction, bilateral - Ambulatory Encounter Satinder Christianson MedAdherence [facility] UNK - Ambulatory Encounter Satinder Christianson MedAdherence Flora Vistajimbo Gagnon Lazear UNK - Ambulatory Encounter Satinder Christianson MedAdherence Edward Whiteabjaimie Roa Nnabuinasir Flora Vistajimbo Gagnon [facility] UNK - Ambulatory Encounter Satinder Christianson MedAdherence [facility] UNK - Ambulatory Encounter Tiara Christianson MedAdherence Alayna Gu [facility] UNK - Ambulatory Encounter Edward Whiteabjaimie Roa Nnabuife [facility]K - Ambulatory Encounter Edward Whiteabuinasir Whiteabuife [facility] UNK - Ambulatory Encounter Satinder Christianson MedAdherence [facility] UNK - Ambulatory Encounter Satinder Harman [facility]K - Ambulatory [...] Services UNK - Ambulatory Encounter Satinder [facility] UNK - Ambulatory Encounter Tiara Christianson MedAdherence Satinder Engel [facility] Contact Center UNK - Ambulatory Encounter Kimberly Roa Nnabuife Edward Roa Nnabuife [facility] Contact Center UNK - Ambulatory Encounter Satinder Christianson MedAdherence [facility] UNK - Ambulatory Encounter Satinder Harman LinkLogic [facility] UNK - Ambulatory Encounter Fax Status [facility] UNK - Ambulatory Encounter Lo Christianson MedAdherence [facility] UNK - Ambulatory Encounter Edward Roa Nnabuife Edward Roman Catholic Nnabuife LinkLogic [facility] UNK - Ambulatory Encounter Edward Whiteabuife Edward Magañaian Nnabuife LinkLogic [facility] UNK - Ambulatory Encounter Bryankathya Roman Catholic Nnabuinasir Florezwlinda Roman Catholic Nnabuinasir [facility] UNK - Ambulatory Encounter Opallinda Roman Catholic Nnabuinasir Florezwlinda Roman Catholic Nnabuife [facility] UNK - Ambulatory Encounter Opallinda Crispin Whiteabuinasir Florezwlinda Roman Catholic Nnabuife [facility] UNK - Ambulatory Encounter Yonnydarryl Sierra Roldankwuemejose j Crispin Whiteabuife Opaluemejose j Roman Catholic Nnabuife [facility] BMI 60.0-69.9, adultBMI 50.0-59.9 - Ambulatory Encounter Alayna Nava [facility] UNK - Ambulatory Encounter Kayla Ruel [facility] UNK - Ambulatory Encounter Kaylakaylin VoRuel [facility] UNK - Ambulatory Encounter Bryankathya Crispin Whiteabuinasir Roldankwuemejose j Roman Catholic Nnabuife Kayla Ruel [facility] UNK - Ambulatory Encounter Satinder Christianson [facility] Kayla Florezwuemejose j Whiteabuinasir Roldankwuemejose j Roman Catholic Nnabuiansir Reich [facility] UNK - Ambulatory Encounter Fax Status [facility]ic [facility] UNK - Ambulatory Encounter Fax Status LinkLogic [facility] UNK - Ambulatory Encounter Fax Status LinkLogic [facility] UNK - Ambulatory Encounter Fax Status LinkLogic [facility] UNK - Ambulatory Encounter Bhavya Pedersen MedAdherfaheem Elyace Ron [facility] Contact Center UNK - Ambulatory Encounter Edward Whiteabuinasir Leon Roman Catholic Nnabuife [facility] UNK - Ambulatory Encounter Edward Whiteabuinasir Leon Roman Catholic Nnabuife [facility] UNK - Ambulatory Encounter Edward Whiteabuife Edward Roman Catholic Nnabuife [facility] UNK - Ambulatory Encounter Comfort Roa Nnabuife Edward Roa Nnabuife Hafsa Will [facility] Dyspnea at restCHF exacerbation - Ambulatory Encounter Tiny Vazquez Mckeon Tiny Vazquez Mckeon [facility] UNK - Ambulatory Encounter Tiny Vazquez Mckeon Tiny Vazquez Mckeon Violette Pool [facility] BMI 50.0-59.9BMI 60.0-69.9, adult - Ambulatory Encounter Kayla Lipscomb [facility] UNK - Ambulatory Encounter Satinder Christianson MedAdherence Francesca Potts [facility] Contact Center UNK - Ambulatory Encounter Violette Pool Kayla Lipscomb [facility] UNK - Ambulatory Encounter Edward Whiteabuife Edward Magañaian Nnabuife LinkLogedward [facility] UNK - Ambulatory Encounter Edward Whiteabuinasir Leon Roman Catholic Nnabuife [facility] UNK - Ambulatory Encounter Bryankathya Roman Catholic Nnabuinasir Adamskathya Roman Catholic Nnabuife [facility] UNK - Ambulatory Encounter Bryankathya Roman Catholic Nnabuife Bryankathya Roman Catholic Nnabuife [facility] UNK - Ambulatory Encounter Abisaijose j Roman Catholic Nnabuife Bryankathya Roman Catholic Nnabuife [facility] UNK - Ambulatory Encounter Gill Baronejose j Crispin Whiteabuife Abisaijose j Roman Catholic Nnabuife Violette Will [facility] Acute upper respiratory infection - Ambulatory Encounter Bhavya Pedersen MedAdherence [facility] UNK - Ambulatory Encounter Satinder Burrisberg [facility] UNK - Ambulatory Encounter Bhavya Pedersen [facility] UNK - Ambulatory Encounter Comfort Trevino [facility] UNK - Ambulatory Encounter Norma Ibarra [facility] UNK - Ambulatory Encounter [facility]K - Ambulatory Encounter Fax Status [facility] UNK - Ambulatory Encounter [facility] UNK - Ambulatory Encounter Alayna Chapman [facility] UNK - Ambulatory Encounter Abisaijose j Crispin Whiteabjaimie Baronejose j Crispin Whiteabuife [facility] UNK - Ambulatory Encounter Chukkavin Roman Catholic Nnabuife Chukwfabiánmejose j Roman Catholic Nnabuife [facility] UNK - Ambulatory Encounter Chukwlinda Roman Catholic Nnabuife Chukwuemejose j Roman Catholic Nnabuife [facility] UNK - Ambulatory Encounter Satinder Klein Chukwuemejose j Roman Catholic Nnabuife Chukwuemejose j Roman Catholic Nnabuife Priya Mars [facility] UNK - Ambulatory Encounter Parris Oleary [facility] UNK - Ambulatory Encounter Chukwlinda Roman Catholic Nnabuife Jamarkwlinda Roman Catholic Nnabuife LinkLogic [facility] UNK - Ambulatory Encounter Bhavya Moserlory Chuvidhyawuekathya Roman Catholic Nnabuife Jamarkwlinda Roman Catholic Nnabuife Raysa Potts [facility] Contact Center UNK - Ambulatory Encounter Chukwlinda Roman Catholic Nnabuife Jamarkwuekathya Roman Catholic Nnabuife [facility] UNK - Ambulatory Encounter Chukwlinda Roman Catholic Nnabuife Jamarkwlinda Roman Catholic Nnabuife [facility] UNK - Ambulatory Encounter Chukkavin Roman Catholic Nnabuife Jamarkwfabiánmejose j Roman Catholic Nnabuife [facility] UNK - Ambulatory Encounter Chukkavin Roman Catholic Nnabuife Chukwuemejose j Roman Catholic Nnabuife [facility] UNK - Ambulatory Encounter Gill Magañaian Nnabuife Chukwuemejose j Roman Catholic Nnabuife [facility] UNK - Ambulatory Encounter Bhavya Pedersen MedAdherence [facility] UNK - Ambulatory Encounter Kayla Ruel Gayle Joey [facility]errano [facility] UNK - Ambulatory Encounter Chukwlinda Roman Catholic Nnabuife Chukwuekathya Roman Catholic Nnabuife [facility] UNK - Ambulatory Encounter Tab Chang [facility] UNK - Ambulatory Encounter Chukwlinda Roman Catholic Nnabuife Chukwuemejose j Roman Catholic Nnabuife [facility] UNK - Ambulatory Encounter Chukkavin Roman Catholic Nnabuife Chukwlinda Roman Catholic Nnabuife [facility] UNK - Ambulatory Encounter LSJ Lab Support Desktop LinkLogic Tab Leon Roman Catholic Nnabuife Chukwuemejose j Roman Catholic Nnabuife [facility] UNK - Ambulatory Encounter Chukwlinda Roman Catholic Nnabuife Jamarkwlinda Roman Catholic Nnabuife [facility] UNK - Ambulatory Encounter Chukwuekathya Roman Catholic Nnab[place]ife Chukwuemejose j Roman Catholic Nnabuife [facility] UNK - Ambulatory Encounter Chukwlinda Roman Catholic Nnabuife Chukwuemeka Roman Catholic Nnabuife [facility] UNK - Ambulatory Encounter Comfort Christianson MedAdherence Chuvidhyawuekathya Roman Catholic Nnabuife Chukwuemejose j Roman Catholic Nnabuife Marielena Boonenamarcia Reich [facility] Screening for diabetes mellitusScreening for lipid disorder - Ambulatory Encounter Chukwuemejose j Roman Catholic N[place] Chukwuemeka Roman Catholic Nnabuife [facility] GERD - Ambulatory Encounter Chukwuemejose j Roman Catholic N[place] Chukwuemejose j Roman Catholic Nnabuife Stephanie Isabel [facility] UNK - Ambulatory Encounter Chukwuemejose j Roman Catholic N[place] Chukwuemejose j Roman Catholic Nnabuife [facility] UNK - Ambulatory Encounter Tab Roldankkavin Roman Catholic Nnabuife Chukwuekathya Roman Catholic Nnabuife Vivian Pope [facility] Contact Center UNK - Ambulatory Encounter Chukwuemejose j Roman Catholic Nnabuife Chukwuemejose j Roman Catholic Nnabuife [facility] UNK - Ambulatory Encounter Chukwuemejose j Roman Catholic Nnabuife Chukwuemeka Roman Catholic Nnabuife [facility] UNK - Ambulatory Encounter Chukwuemejose j Roman Catholic N[place]ab[place]ife Chukwuemeka Roman Catholic Nnabuife [facility] UNK - Ambulatory Encounter Comfort Roldankwlinda Roman Catholic Nnabuife Chukwuemejose j Roman Catholic Nnabuife [facility] Diabetes mellitus type II - Ambulatory Encounter Chukwuemejose j Roman Catholic Nnab[place]ife Chukwuemeka Roman Catholic Nnabuife LinkLogic [facility] UNK - Ambulatory Encounter Chukwlinda Roman Catholic Nnabuife Edward Roman Catholic Nnabuife LinkLogic [facility] UNK - Ambulatory Encounter Loly Winslow [facility] UNK - Ambulatory Encounter Chuodilia Roman Catholic N[place] Edward Roman Catholic Nnabuife LinkLogic [facility] UNK - Ambulatory Encounter Chuodilia Roman Catholic N[place] Edward Roman Catholic Nnabuife [facility] UNK - Ambulatory Encounter Chuodilia Roman Catholic N[place] Edward Roman Catholic Nnabuife [facility] UNK - Ambulatory Encounter Edward Roman Catholic Nnabuife Edward Roman Catholic Nnabuife [facility] UNK - Ambulatory Encounter Chuodilia Roman Catholic N[place] Edward Roman Catholic Nnabuife [facility] UNK - Ambulatory Encounter Satinder Florezwuekathya Roman Catholic N[place]ab[place] Gautamwuekathya Roman Catholic Nnabuife [facility] UNK - Ambulatory Encounter Tiara Christianson MedAdherence [facility] UNK - Ambulatory Encounter Bhavya Pedersen MedAdherence [facility] UNK - Ambulatory Encounter Bhavya Pedersen MedAdherence LinkLogic [facility] UNK - Ambulatory Encounter Titi Kaitlynn Titicleveland Calderón LinkLogic [facility] UNK - Ambulatory Encounter Chuodilia Roman Catholic N[place] Edward Roman Catholic Nnabuife LinkLogic [facility] UNK - Ambulatory Encounter Chukwuemejose j Roman Catholic Nnab[place]ife Chukwuemeka Roman Catholic Nnabuife LinkLogic [facility] UNK - Ambulatory Encounter Chukwuemejose j Roman Catholic N[place]ab[place]ife Chukwuemeka Roman Catholic Nnabuife [facility] UNK - Ambulatory Encounter Chukwuemeka Roman Catholic Nnabuife Chukwuemeka Roman Catholic Nnabuife [facility] UNK - Ambulatory Encounter Chukwuemeka Roman Catholic Nnabuife Chukwuemeka Roman Catholic Nnabuife [facility] UNK - Ambulatory Encounter Chukwallanjose j Roman Catholic N[place]ab[place]ife Chukwuemeka Roman Catholic Nnabuife [facility] UNK - Ambulatory Encounter Comfort Roldankwlinda Roman Catholic Nnabuife Chukwuemejose j Roman Catholic Nnabuife [facility] Abdominal distensionAbdominal pain, chronicAscitesUrinary retention - Ambulatory Encounter Tiara Christianson MedAdherence [facility] UNK - Ambulatory Encounter Tiara Christianson MedAdherence Loly Puckett [facility] UNK - Ambulatory Encounter Tiara Christianson MedAdherence [facility] UNK - Ambulatory Encounter Comfort [facility]ino [facility] - Ambulatory Encounter Mae Rodney [facility] UNK - Ambulatory Encounter Fax Status [facility] UNK - Ambulatory Encounter Fax Status [facility] UNK - Ambulatory Encounter Fax Status LinkLogic [facility] UNK - Ambulatory Encounter Fax Status LinkLogic [facility] UNK - Ambulatory Encounter Fax Status LinkLogic [facility] UNK - Ambulatory Encounter Fax Status LinkLogic [facility] UNK - Ambulatory Encounter Chukwuemejose j Roman Catholic Nnabuife Chukwuemejose j Roman Catholic Nnabuife [facility] UNK - Ambulatory Encounter Chukkavin Roman Catholic N[place] Chukwuemejose j Roman Catholic Nnabuife [facility] UNK - Ambulatory Encounter Chukwlinda Roman Catholic Nnab[place]ife Chukwuemejose j Roman Catholic Nnabuife [facility] UNK - Ambulatory Encounter Toma Woods [facility] Mood Disorder, NOS - Ambulatory Encounter Lo Florezwuekathya Roman Catholic Nnabuife Jamarkwlinda Roman Catholic N[place]ab[place] Vivian Catalan Navadione Matthews [facility] Depression, majorSuicidal ideation - Ambulatory Encounter Comfort Trevino LinkLog [facility] UNK - Ambulatory Encounter Tiara Bob [facility] UNK - Ambulatory Encounter Bhavya Pedersen MedAdherence [facility] UNK - Ambulatory Encounter Bhavya Pedersen MedAdherence LinkLogic [facility] UNK - Ambulatory Encounter Edward Roman Catholic Nnabuife Jamarkwuemeka Roman Catholic N[place]abu[place] [facility] UNK - Ambulatory Encounter Churameshjose j Roman Catholic N[place]ab[place] Jamarkwuekathya Roman Catholic N[place]abu[place] [facility] UNK - Ambulatory Encounter Chuvidhyawlinda Roman Catholic N[place]ab[place] Jamarkwuekathya Roman Catholic Nnabuife [facility] UNK - Ambulatory Encounter Chuomaruekathya Roman Catholic N[place] Jamarkwuekathya Roman Catholic Nnabuife [facility] UNK - Ambulatory Encounter Chuvidhyawuekathya Roman Catholic N[place] Jamarkwuemejose j Roman Catholic Nnabuife [facility] UNK - Ambulatory Encounter Gill Roldankwuemejose j Roman Catholic N[place]ab[place] Jamarkwuemejose j Roman Catholic Nnabuife [facility] UNK - Ambulatory Encounter Loly Winslow [facility] UNK - Ambulatory Encounter Tiara Christianson [facility] - Ambulatory Encounter Opaluekathya Roman Catholic Nnabuife Jamarkwuekathya Roman Catholic Nnabuife [facility] UNK - Ambulatory Encounter Bhavya Pedersen MedAdherence [facility] UNK - Ambulatory Encounter Bhavya Pedersen MedAdherence LinkLogic [facility] UNK - Ambulatory Encounter Gautamwuemeka Roman Catholic Nnabuife Jamarkwuemeka Roman Catholic N[place]ab[place] Tab Matthews [facility] UNK - Ambulatory Encounter Comfort Trevino LinkLog [facility] UNK - Ambulatory Encounter Chuodilia Roman Catholic N[place] Edward Roman Catholic N[place] [facility] UNK - Ambulatory Encounter Chuodilia Roman [employer] N[place] Edward Roman Catholic N[place] [facility] UNK - Ambulatory Encounter Chuodilia [employer] N[place] Chukwlinda Roman Catholic [facility] UNK - Ambulatory Encounter Chuodilia Roman Catholic [place] Edward [facility] Catholic [facility] UNK - Ambulatory Encounter Comfort Magañaian [place] Edward [facility] COPD with exacerbation - Ambulatory Encounter Tiara Christianson MedAdherence [facility] UNK - Ambulatory Encounter Tiara Christianson MedAdherence Loly Thompson [facility] UNK - Ambulatory Encounter Tiara Christianson MedAdherence [facility] UNK - Ambulatory Encounter Edward Roman Catholic [place] Edward Roman Catholic [facility] UNK - Ambulatory Encounter Edward Roman Catholic [place] Edward Roman Catholic [facility] UNK - Ambulatory Encounter Gill Leon Roman Catholic [place] Edward Roman Catholic [facility] UNK - Ambulatory Encounter Loly Thompson [facility] - Ambulatory Encounter Edward Roa N[facility]abuinasir Delgado [facility] - Ambulatory Encounter [facility]oly [facility] - Ambulatory Encounter Fax Status [facility]Logic [facility] UNK - Ambulatory Encounter Fax Status LinkLogic [facility] UNK - Ambulatory Encounter Fax Status [facility] UNK - Ambulatory Encounter Fax Status [facility] UNK - Ambulatory Encounter Fax Status [facility] UNK - Ambulatory Encounter Fax Status LinkLogic [facility] UNK - Ambulatory Encounter Titi Kaitlynn Titi Kaitlynn [facility] UNK - Ambulatory Encounter Titi Kaitlynn Titi Kaitlynn [facility] UNK - Ambulatory Encounter Titi Kaitlynn Titi Kaitlynn [facility] UNK - Ambulatory Encounter Lo Gu Titi Kaitlynn Titi Kaitlynn [facility] MUSCLE SPASMEAR PAIN, RIGHTCandidal vaginitisOtitis media, acute - Ambulatory Encounter Satinder Gu [facility] Contact Center UNK - Ambulatory Encounter Fax Status [facility] UNK - Ambulatory Encounter Fax Status [facility] UNK - Ambulatory Encounter Fax Status [facility] UNK - Ambulatory Encounter Bhavya Pedersen MedBhavani Loly Palacio [facility] Services UNK - Ambulatory Encounter Chukwuekathya Roman Catholic [place] Jamarkwuemejose j Roman Catholic [place] UNK - Ambulatory Encounter Satinder Roldankwuemeka Roman Catholic [place] Edward Roa [place] Ayanna Matthews [facility] Breast abnormal findingsChronic bronchitisBMI 50.0-59.9 - Ambulatory Encounter Comfort Trevino [facility]Log[facility] UNK - Ambulatory Encounter Tiara Sammy MedAdherence [facility] UNK - Ambulatory Encounter Tiara Sammy MedAdherence LinkLog[facility] UNK - Ambulatory Encounter Bhavya Pedersen MedAdherence [facility] UNK - Ambulatory Encounter Bhavya Pedersen MedAdherence [facility] UNK - Ambulatory Encounter Madhumita Sierra [facility] UNK - Ambulatory Encounter Madhumita Sierra [facility] UNK - Ambulatory Encounter Bhavya Pedersen MedAdherence Stephanie Hernandez [facility] Services Contact Center UNK - Ambulatory Encounter Madhumita Sierra [facility] UNK - Ambulatory Encounter Madhumita Sierra [facility] UNK - Ambulatory Encounter Madhumita Sierra [facility] UNK - Ambulatory Encounter Nupur Chong [facility] UNK - Ambulatory Encounter Nupur Chong [facility] UNK - Ambulatory Encounter Edwin Umana Edwin Umana [facility] UNK - Ambulatory Encounter Edwin Lyndsay Umana [facility] UNK - Ambulatory Encounter Edwin Lyndsay Umana [facility] UNK - Ambulatory Encounter Comfort Ma Gamino [facility] MORBID OBESITYOtitis media, acute - Ambulatory Encounter Fabricio Beard [facility] UNK - Ambulatory Encounter Madjordimitkaylin Esquivel [facility] UNK - Ambulatory Encounter Madhumitkaylin [facility]ivel [facility] Candidal vaginitis - Ambulatory Encounter Yonnydarryl Sierra [facility] UNK - Ambulatory Encounter Breana Rosario [facility] UNK - Ambulatory Encounter Breana Rosario [facility] UNK - Ambulatory Encounter Mary Soto [facility] UNK - Ambulatory Encounter Fabricio Beard [facility] UNK - Ambulatory Encounter Bria Young [facility] UNK - [facility] - Ambulatory Encounter Fabricio Beard [facility] UNK - Ambulatory Encounter Gita Dewey [facility] UNK - Ambulatory Encounter Comfort Trevino [facility] UNK - Ambulatory Encounter [facility] - Ambulatory Encounter Comfort Trevino LinkLogic [facility] UNK - Ambulatory Encounter Carmelina Gu [facility] UNK - Ambulatory Encounter Jan Johnson [facility] UNK - Ambulatory Encounter Fax Status LinkLog[facility] UNK - Ambulatory Encounter Fax Status Link[facility] UNK - Ambulatory Encounter Fax Status [facility] UNK - Ambulatory Encounter Deniz Dunn [facility] UNK - Ambulatory Encounter Bhavya Pedersen MedAdherence [facility] UNK - Ambulatory Encounter Comfort Trevino [facility] UNK - Ambulatory Encounter Comfort Trevino [facility] UNK - Ambulatory Encounter Comfort Trevino [facility] UNK - Ambulatory Encounter Fax Status [facility] UNK - Ambulatory Encounter Fax Status [facility] UNK - Ambulatory Encounter Comfort Trevino [facility] UNK - Ambulatory Encounter Fax Status [facility] UNK - Ambulatory Encounter Fax Status Link[facility] UNK - Ambulatory Encounter Comfort Trevino LinkLogic [facility] UNK - Ambulatory Encounter Comfort Trevino LinkLogic [facility] UNK - Ambulatory Encounter Comfort Trevino LinkLogic [facility] UNK - Ambulatory Encounter Comfort Trevino LinkLogic [facility] UNK - Ambulatory Encounter Kimberly Pedersen MedAdherfaheem Woodselia Gaston [facility] UNK - Ambulatory Encounter Kimberly Trev[facility] UNK - [facility]ulatory Encounter Fax Status LinkLogic [facility] UNK - Ambulatory Encounter Fax Status Link[facility] UNK - Ambulatory Encounter Fax Status [facility] UNK - Ambulatory Encounter Kimberly Trevino [facility] UNK - Ambulatory Encounter Comfort Trevino [facility] UNK - Ambulatory Encounter Comfort Trevino LinkLogic Kimberly Jorgensen [facility] UNK - Ambulatory Encounter Fax Status Link[facility] UNK - Ambulatory Encounter Jenny Gaston [facility] UNK - Ambulatory Encounter Fax Status Link[facility] UNK - Ambulatory Encounter Fax Status [facility] UNK - Ambulatory Encounter Comfort TorresLogedward [facility] UNK - Ambulatory Encounter Kimberly Trevino [facility] UNK - Ambulatory Encounter Comfort TorresLogedward Jorgensen [facility] UNK - Ambulatory Encounter Jenny Feldman [facility] UNK - Ambulatory Encounter Gosia Trevino [facility] UNK - Ambulatory Encounter Comfort TorresLogedward Mayes [facility] UNK - Ambulatory Encounter Comfort Ward [facility] CHRONIC OBSTRUCTIVE PULMONARY DISEASE, ACUTE EXACERBATIONCHFSLEEP APNEA - Ambulatory Encounter Gill [facility]af[facility]te [facility] UNK - Ambulatory Encounter Fax Status [...] Services UNK - Ambulatory Encounter Jenny Feldman [facility] UNK - Ambulatory Encounter Thea Puppala Thea Puppala Rosalinda Ward [facility] LOW BACK PAIN - Ambulatory Encounter Sabra Mitchell [facility] UNK - Ambulatory Encounter Sabra Mitchell [facility] UNK - Ambulatory Encounter Ernesto Gaffney [facility] DEPENDENT EDEMA, LEGS - Ambulatory Encounter Bhavya Pedersen [facility] UNK - Ambulatory Encounter Bhavya Pedersen [facility]Helen [facility] UN[facility] - Ambulatory Encounter [facility] UNK - Ambulatory Encounter [facility] UNK - Ambulatory Encounter [facility] UNK - Ambulatory Encounter [facility] UNK - Ambulatory Encounter [facility] UNK - Ambulatory Encounter Malena Isabel [facility] UNK - Ambulatory Encounter Ernesto Matthews [facility] EAR PAIN, RIGHTBLURRED VISIONHEARING DEFICIT - Ambulatory Encounter Presybeterian Preload LinkLogic [facility] UNK - Ambulatory Encounter Presybeterian Preload LinkLogic [facility] UNK - Ambulatory Encounter Presybeterian Preload LinkLogic [facility] UNK - Ambulatory Encounter Presybeterian Preload LinkLogic [facility] UNK - Ambulatory Encounter Presybeterian Preload LinkLogic [facility] UNK - Ambulatory Encounter Presybeterian Preload [facility] UNK - Ambulatory Encounter Presybeterian Preload [facility] UNK - Ambulatory Encounter Presybeterian Preload [facility] UNK - Ambulatory Encounter Presybeterian Preload [facility] UNK - Ambulatory Encounter Presybeterian Preload [facility] UNK - Ambulatory Encounter Presybeterian Preload [facility] UNK - Ambulatory Encounter Presybeterian Preload LinkLogic [facility] UNK - Ambulatory Encounter Presybeterian Preload LinkLogic [facility] UNK - Ambulatory Encounter Presybeterian Preload [facility] UNK - Ambulatory Encounter Presybeterian Preload [facility] UNK - Ambulatory Encounter Presybeterian Preload [facility] UNK - Ambulatory Encounter Presybeterian Preload LinkLogic [facility] UNK - Ambulatory Encounter Presybeterian Preload LinkLogic [facility] UNK - Ambulatory Encounter Presybeterian Preload [facility] UNK - Ambulatory Encounter Presybeterian Preload [facility] UNK - Ambulatory Encounter Presybeterian Preload [facility] UNK - Ambulatory Encounter Presybeterian Preload [facility] UNK - Ambulatory Encounter Presybeterian Preload [facility] UNK - Ambulatory Encounter Presybeterian Preload [facility] UNK - Ambulatory Encounter Presybeterian Preload [facility] UNK - Ambulatory Encounter Presybeterian Preload [facility] UNK - Ambulatory Encounter Presybeterian Preload [facility] UNK - Ambulatory Encounter Presybeterian Preload [facility] UNK - Ambulatory Encounter Presybeterian Preload [facility] UNK - Ambulatory Encounter Presybeterian Preload [facility] UNK - Ambulatory Encounter Presybeterian Preload LinkLogic [facility] UNK - Ambulatory Encounter Presybeterian Preload [facility] UNK - Ambulatory Encounter Presybeterian Preload [facility] UNK - Ambulatory Encounter Presybeterian Preload [facility] UNK - Ambulatory Encounter Presybeterian Preload [facility] UNK - Ambulatory Encounter Presybeterian Preload [facility] UNK - Ambulatory Encounter Presybeterian Preload [facility] UNK - Ambulatory Encounter Presybeterian Preload [facility] UNK - Ambulatory Encounter Presybeterian Preload [facility] UNK - Ambulatory Encounter Presybeterian Preload [facility] UNK - Ambulatory Encounter Presybeterian Preload [facility] UNK - Ambulatory Encounter Presybeterian Preload [facility]Logic [facility] UNK - Ambulatory Encounter Presybeterian Preload LinkLogic [facility] UNK - Ambulatory Encounter Presybeterian Preload LinkLogic [facility] UNK - Ambulatory Encounter Presybeterian Preload LinkLogic [facility] UNK - Ambulatory Encounter Presybeterian Preload LinkLogic [facility] UNK - Ambulatory Encounter Presybeterian Preload LinkLogic [facility] UNK - Ambulatory Encounter Presybeterian Preload LinkLogic [facility] UNK - Ambulatory Encounter Presybeterian Preload LinkLogic [facility] UNK - Ambulatory Encounter Presybeterian Preload LinkLogic [facility] UNK - Ambulatory Encounter Presybeterian Preload LinkLogic [facility] UNK - Ambulatory Encounter Presybeterian Preload LinkLogic [facility] UNK - Ambulatory Encounter Presybeterian Preload LinkLogic [facility] UNK - Ambulatory Encounter Presybeterian Preload LinkLogic [facility] UNK - Ambulatory Encounter Presybeterian Preload LinkLogic [facility] UNK - Ambulatory Encounter Presybeterian Preload LinkLogic [facility] UNK - Ambulatory Encounter Presybeterian Preload LinkLogic [facility] UNK - Ambulatory Encounter Presybeterian Preload LinkLogic [facility] UNK - Ambulatory Encounter Presybeterian Preload LinkLogic [facility] UNK - Ambulatory Encounter Presybeterian Preload LinkLogic [facility] UNK - Ambulatory Encounter Presybeterian Preload LinkLogic [facility] UNK - Ambulatory Encounter Presybeterian Preload [facility] UNK - Ambulatory Encounter Presybeterian Preload [facility] UNK - Ambulatory Encounter Presybeterian Preload [facility] UNK - Ambulatory Encounter Presybeterian Preload [facility] UNK - Ambulatory Encounter Presybeterian Preload [facility] UNK - Ambulatory Encounter Presybeterian Preload [facility] UNK - Ambulatory Encounter Presybeterian Preload [facility] UNK - Ambulatory Encounter Sharpe Vo Annemarie Vo [facility] UNK - Ambulatory Encounter Presybeterian Preload [facility] UNK - Ambulatory Encounter Presybeterian Preload [facility] UNK - Ambulatory Encounter Presybeterian Preload [facility] UNK - Ambulatory Encounter Presybeterian Preload [facility] UNK - Ambulatory Encounter Presybeterian Preload [facility] UNK - Ambulatory Encounter Presybeterian Preload [facility] UNK - Ambulatory Encounter Presybeterian Preload [facility] UNK - Ambulatory Encounter Presybeterian Preload [facility] UNK - Ambulatory Encounter Presybeterian Preload [facility] UNK - Ambulatory Encounter Presybeterian Preload [facility] UNK - Ambulatory Encounter Presybeterian Preload [facility] UNK - Ambulatory Encounter Presybeterian Preload [facility] UNK - Ambulatory Encounter Presybeterian Preload [facility] UNK - Ambulatory Encounter Presybeterian Preload [facility] UNK - Ambulatory Encounter Presybeterian Preload [facility] UNK - Ambulatory Encounter Presybeterian Preload [facility] UNK - Ambulatory Encounter Presybeterian Preload [facility] UNK - Ambulatory Encounter Presybeterian Preload LinkLogic [facility] UNK - Ambulatory Encounter Presybeterian Preload [facility] UNK - Ambulatory Encounter Presybeterian Preload [facility] UNK - Ambulatory Encounter Presybeterian Preload [facility] UNK - Ambulatory Encounter Presybeterian Preload [facility] UNK - Ambulatory Encounter Presybeterian Preload [facility] UNK - Ambulatory Encounter Presybeterian Preload [facility] UNK - Ambulatory Encounter Presybeterian Preload [facility] UNK - Ambulatory Encounter Presybeterian Preload [facility] UNK - Ambulatory Encounter Presybeterian Preload [facility] UNK - Ambulatory Encounter Presybeterian Preload [facility] UNK - Ambulatory Encounter Presybeterian Preload LinkLogic [facility] UNK - Ambulatory Encounter Presybeterian Preload [facility] UNK - Ambulatory Encounter Presybeterian Preload [facility] UNK - Ambulatory Encounter Presybeterian Preload LinkLogic [facility] UNK - Ambulatory Encounter Presybeterian Preload [facility] UNK - Ambulatory Encounter Presybeterian Preload LinkLogic [facility] UNK - Ambulatory Encounter Presybeterian Preload LinkLogic [facility] UNK - Ambulatory Encounter Presybeterian Preload LinkLogic [facility] UNK - Ambulatory Encounter Presybeterian Preload LinkLogic [facility] UNK - Ambulatory Encounter Presybeterian Preload [facility] UNK - Ambulatory Encounter Presybeterian Preload LinkLogic [facility] UNK - Ambulatory Encounter Presybeterian Preload LinkLogic [facility] UNK - Ambulatory Encounter Presybeterian Preload LinkLogic [facility] UNK - Ambulatory Encounter [facility] UNK - Ambulatory Encounter Sharpe Gulshan BarbozaSharpe [facility] UNK - Ambulatory Encounter [facility] Vo Sharpe [facility] UNK - Ambulatory Encounter Gill Batistaen [facility] UNK - Ambulatory Encounter [facility] - Ambulatory Encounter Annemarie Gaffney Vanessa CisnerosAdherfaheem AranaLoma [facility] UNK - Ambulatory Encounter Gill Orozco Davialice Orozco alice [facility] UNK - Ambulatory Encounter Gill Orozco Davialice Orozco Noy Gaffney Honey Gutierrez [facility] COPDNICOTINE ADDICTIONSARCOIDOSISHYPERTENSIONMUSCLE SPASM - Ambulatory Encounter [facility] Date Observation Value Provider oxygen [...] Odonnell " pulse rate E&M 98 /min Edward Delgado " temperature site oral Sheryl Odonnell " temperature E&M 98.3 [degF] Sheryl Odonnell " weight E&M 319 lbs. Sheryl Odonnell " weight in kilograms E&M 145 kg Sheryl Odonnell " height E&M 61 [in_i] Sheryl Odonnell " height in centimeters E&M 154.94 cm Sheryl Odonnell method used to obtain blood pressure automatic Francesca Diana " Blood Pressure Position 01 sitting Francesca Diana " blood pressure, site #1 left arm Francesca Diana " oxygen saturation, oximetry 95 % Francesca Diana " blood pressure, diastolic 83 mm[Hg] Francesca Diana " blood pressure, systolic 129 mm[Hg] Francesca Ernesto Lebron " respiratory rate E&M 18 /min Francesca [facility] " pulse rate E&M 99 /min Jamarvidhyarosalvajose j Roman Catholicjaki Delgado " [facility] " temperature E&M 98.0 [degF] [facility] " weight E&M 326.20 lbs. [facility] " weight in kilograms E&M 148.27 kg [facility] " height in centimeters E&M 154.94 cm [facility] " height E&M 61 [in_i] [facility] method used to obtain blood pressure automatic [facility] " Blood Pressure Position 01 sitting [facility] " blood pressure, site #1 left arm [facility] " oxygen saturation, oximetry 98 % [facility] " blood pressure, diastolic 84 mm[Hg] [facility] " blood pressure, systolic 135 mm[Hg] [facility] " respiratory rate E&M 18 /min [facility] " pulse rate E&M 98 /min [facility] " temperature site [facility] " temperature E&M 98.4 [degF] [facility] " weight E&M 321.80 lbs. [facility] " weight in kilograms E&M 146.27 kg [facility] " height in centimeters E&M 154.94 cm [facility] " height E&M 61 [in_i] Francesca Orozco Lebron oxygen saturation, oximetry 94 % Nupur [...] Stephanie Isabel " temperature site oral Stephanie sIabel " temperature E&M 98.3 [degF] Stephanie Isabel " weight E&M 312.40 lbs. Stephanie Isabel " weight in kilograms E&M 142 kg Stephanie Chlao " height E&M 61 [in_i] Stephanie Chalo [...] used to obtain blood pressure automatic Stephanie Chalo " Blood Pressure Position 01 sitting Stephanie Isabel " blood pressure, site #1 left arm Stephanie Chalo " blood pressure, diastolic 77 mm[Hg] Stephanie Chalo " blood pressure, systolic 124 mm[Hg] Stephanie [...] height in centimeters E&M 154.94 cm Hafsa Wlil oxygen saturation, oximetry 93 % Violette Pool [...] Jerad " respiratory rate E&M 16 /min Pryia Jerad " pulse rate E&M 109 /min Priya Jerad " temperature E&M 98.9 [degF] Priya Jerad " weight E&M 329 lbs. Priya Jerad " weight in kilograms E&M 149.55 kg Priya Jerad " method used to obtain blood pressure automatic Priya Jerad " Blood Pressure Position 01 sitting Priya Jeard " blood pressure, site #1 left arm Priya Mars " temperature site oral Priay Mars " height E&M 61 [in_i] Priya [...] arm Francesca Stevenson " temperature site oral Francesca Gamino " weight E&M 274.38 lbs. Francesca Gamino " weight in kilograms E&M 124.72 kg Francesca Stevenson " height E&M 61 [in_i] Francescalloyd Gamino " height in centimeters E&M 154.94 [...] used to obtain blood pressure manual Francescalloyd Parkerrez " Blood Pressure Position 01 sitting Francesca [...] lbs. LinkLogic blood pressure, systolic 110 mm[Hg] LinkLog " oxygen saturation, oximetry 97 % LinkLog " respiratory rate E&M 22 /min [employer]Log[employer] " pulse rate E&M 96 /min [employer] " weight E&M 267.00 lbs. LinkLog " temperature E&M 98.8 [degF] LinkLog " blood pressure, diastolic 80 mm[Hg] [employer]Log[employer] respiratory rate E&M 20 /min [employer] " blood pressure, diastolic 90 mm[Hg] [employer]Logic " temperature E&M 99.4 [degF] LinkLog " pulse rate E&M 88 /min LinkLog " oxygen saturation, oximetry 96 % LinkLog " blood pressure, systolic 130 mm[Hg] [employer]Log[employer] " weight E&M 269.00 lbs. [employer]Logic blood pressure, systolic 102 mm[Hg] [employer]Logic " blood pressure, diastolic 70 mm[Hg] [employer]Log[employer] " weight E&M 266.80 lbs. LinkLog " respiratory rate E&M 22 /min LinkLog " pulse rate E&M 92 /min LinkLog " temperature E&M 98.0 [degF] LinkLog " [...] " pulse rate E&M 98 /min Honey Harringtonoy " weight E&M 272 lbs. Honey Gutierrez " weight in kilograms E&M 123.64 kg Honey Gutierrez " height E&M 61 [in_i] Honey Gutierrez " height in centimeters E&M 154.94 cm Honey Gutierrez " respiratory rate E&M 24 /min Honey Gutierrez " method used to obtain blood pressure manual Honeyniru Gutierrez " Blood Pressure Position 01 sitting Honey Gutierrez " blood pressure, site #1 right arm Honey Gutierrez " blood pressure, diastolic 90 mm[Hg] Honey Gutierrez " blood pressure, systolic 118 mm[Hg] Honey Gutierrez " temperature site oral Honey Gutierrez " temperature E&M 98.7 [degF] Honey Harringtonoy ALLERGIES Allergy Name Onset Date Reaction Criticality [...] 3.4-10.8 High blood glucose, random 256 mg/dL Jamarlinda [facility] " hemoglobin A1C, blood, as % of total hemoglobin 8.3 % Edward Delgado hematocrit, blood 37.6 % Kayla Ruel " hemoglobin, blood 11.0 g/dL Kayla Lipscomb [...] MEDICATION USE Medication Instructions Dates Provider Comments LIPITOR 40 MG ORAL TABLET 1 by mouth every pm Edward Delgado MIRALAX ORAL POWDER 1 capfull mixed with [...] Crispin Delgado NEBULIZER Please use as indicated Abisaijose j Crispin Delgado METFORMIN HCL 1000 MG TABS TAKE 1 TABLET BY MOUTH TWICE DAILY [facility] MUCINEX 600 MG ORAL TABLET EXTENDED RELEASE 12 HOUR take 1 tablet twice a day Abisaijose j Crispin Delgado TESSALON PERLES 100 MG ORAL CAPSULE 1 by mouth 3 times a day as needed for cough Abisaijose j Crispin Delgado BUPROPION HCL ER (SR) 100 MG ORAL TABLET EXTENDED RELEASE 12 HOUR take 1 tab Twice a Day Abisaijose j Crispin Delgado METFORMIN 500MG TAB TAKE 1 TABLET BY MOUTH ONCE DAILY [facility] FREESTYLE LANCETS Use as directed to test blood [facility] CODE E11.9 FREESTYLE LITE TEST IN VITRO STRIP Use as directed to test blood sugar once [facility] ICD CODE E11.9 FREESTYLE FREEDOM LITE W/DEVICE KIT Use as directed to test blood sugar once daily [facility] ICD CODE E11.9 BD ULTRA-FINE MICRO PEN NEEDLE 32G X 6 MM use as instructed with kwik pen Abisaijose j Crispin Delgado PANTOPRAZOLE SODIUM 40 MG ORAL TABLET DELAYED RELEASE Take 1 tablet by mouth once daily Abisaijose j Crispin Delgado HUMALOG MIX 75/25 KWIKPEN (75-25) 100 [...] needed for cough and congestion. - Edward Boyceuife DOXYCYCLINE HYCLATE 100 MG ORAL CAPSULE 1 by mouth twice a day - Edward Boyceuife RELION INSULIN SYRINGE 31G X 15/64" 1 ML Use Three Times a Day to administer insulin [facility] Updated directions IPRATROPIUM/ ALBUTER EMI USE 1 AMPULE IN NEBULIZER EVERY 4 HOURS NEEDED FOR WHEEZING [facility] AZITHROMYCIN 250 MG ORAL TABLET 2 tablets [...] Born in [facility]. City: [facility]. State: [place]. Not employed. Retired. Highest education level: high school graduate. Gender of partner(s): male. Sheryl Odonnell " social history reviewed E&M reviewed today Sheryl Charles Odonnell " assessment of health literacy ([facility] 2014 Standards, 3C10) Adequate Sheryl Odonnell " passive cigarette smoke exposure No Sheryl Odonnell " if the patient is using/has used a vaping item, Current, Former, Never Used, Not asked No Sheryl Odonnell " smoking status former smoker Sheryl Charles Odonnell " Exercise Program Referral T Sheryl Odonnell " Weight Management Counseling Provided T Sheryl Odonnell " Nutrition intervention T Sheryl Odonnell social history E&M Single. Not homeless. Born in [facility]. City: [facility]. State: [place]. Not employed. Retired. Highest education level: high school graduate. Gender of partner(s): male. Francesca Diana " social history reviewed E&M reviewed today Francesca Diana " assessment of health literacy ([facility] 2014 Standards, 3C10) Adequate Francesca Diana " passive cigarette smoke exposure Yes Francesca Diana " smoking status former smoker Francescalloyd Diana " Exercise Program Referral T Francesca Diana " Weight Management Counseling Provided T Francesca Diana " Nutrition intervention T Francesca Diana time of call 07/18/2019 2:19 PM Eusebia Gagnon social history E&M Single. Not homeless. Born in [facility]. City: [facility]. State: [place]. Not employed. Retired. Highest education level: high school graduate. Gender of partner(s): male. Francesca Diana " social history reviewed E&M reviewed today Francesca Diana " assessment of health literacy ([facility] 2014 Standards, 3C10) Adequate Francesca Diana " passive cigarette smoke exposure Yes Francesca Diana " smoking status former smoker Francesca Diana " Exercise Program Referral T Francesca Diana " Weight Management Counseling Provided T Francesca Diana " Nutrition intervention T Francesca Diana Exercise Program Referral Miguel A Harman " Weight Management Counseling Provided T Satinder Harman " Nutrition intervention T Satinder Harman drug use, illicit Never Nupur Chong " alcohol use Currently Nupur Chong " social history E&M Single. Not homeless. Born in [facility]. City: [facility]. State: [place]. Not employed. Retired. Highest education level: high school graduate. Gender of partner(s): male. Nupur Chong " social history reviewed E&M reviewed today Nupur Chong " assessment of health literacy ([facility] 2014 Standards, 3C10) Adequate Nupur Chong " passive cigarette smoke exposure Yes Nupur Chong " smoking status former smoker Nupur Chong time of call 04/02/2019 8:30 AM Daphney Espitia drug use, illicit Never Stephanie Chalo " alcohol use Currently Stephanie Chalo " social history E&M Single. Not homeless. Born in [facility]. City: [facility]. State: [place]. Not employed. Retired. Highest education level: high school graduate. Gender of partner(s): male. Stephanie Chalo " social history reviewed E&M reviewed today Stephanie Chalo " assessment of health literacy ([facility] 2014 Standards, 3C10) Adequate Stephanie Chalo " passive cigarette smoke exposure Yes Stephanie Chalo " smoking status former smoker Stephanie Isabel " Exercise Program Referral T Stephanie Isabel " Weight Management Counseling Provided T Stephanie Isabel " Nutrition intervention T Stephanie Isabel sunscreen use No Chukwuemeka [employer] Nnabuife " Exercise Program Referral T Gautamwlinda [employer] Nnabuife " Weight Management Counseling Provided T Gautamwuekathya [employer] Nnabuife " Nutrition intervention T Jamarkwuemejose j [employer] Nnabuife " drug use, illicit Never Nupur Chong " alcohol use Currently Nupur Chong " social history E&M Single. Not homeless. Born in [facility]. City: [facility]. State: [place]. Not employed. Retired. Highest education level: high school graduate. Gender of partner(s): male. Nupur Chong " social history reviewed E&M reviewed today Nupur Chong " assessment of health literacy ([facility] 2014 Standards, 3C10) Adequate Nupur Chong " [...] Born in [facility]. City: [facility]. State: [place]. Not employed. Retired. Highest education level: high school graduate. Gender of partner(s): male. Nupur Chong " social history reviewed E&M reviewed today Nupur Chong " assessment of health literacy ([facility] 2014 Standards, 3C10) Adequate Nupur Chong " passive cigarette smoke exposure No Nupur Chong " smoking status former smoker Nupur Chong time of call 11/21/2018 9:45 AM Joaquim Engel drug use, illicit Never Stephanie Chalo " alcohol use Currently Stephanie Chalo " social history E&M Single. Not homeless. Born in [facility]. City: [facility]. State: [place]. Not employed. Retired. Highest education level: high school graduate. Gender of partner(s): male. Stephanie Chalo " social history reviewed E&M reviewed today Stephanie Isabel " assessment of health literacy ([facility] 2014 Standards, 3C10) Adequate Stephanie Chalo " [...] Born in [facility]. City: [facility]. State: [place]. Not employed. Retired. Highest education level: high school graduate. Gender of partner(s): male. Hafsa Will " social history reviewed E&M reviewed today Hafsa Will " assessment of health literacy ([facility] 2014 Standards, 3C10) Adequate Hafsa Will " [...] Born in [facility]. City: [facility]. State: [place]. Not employed. Retired. Highest education level: high school graduate. Gender of partner(s): male. Violette Pool " social history reviewed E&M reviewed today Violette Pool " assessment of health literacy ([facility] 2014 Standards, 3C10) Adequate Violette Pool " passive cigarette smoke exposure No Violette Pool " smoking status former smoker Violette Pool alcohol use Currently Hafsa Will " drug use, illicit Never Hafsa Will " social history E&M Single. Not homeless. Born in [facility]. City: [facility]. State: [place]. Not employed. Retired. Highest education level: high school graduate. Gender of partner(s): male. Hafsa Will " social history reviewed E&M reviewed today Hafsa Will " assessment of health literacy ([facility] 2014 Standards, 3C10) Adequate Hafsa Will " [...] Born in [facility]. City: [facility]. State: [place]. Not employed. Retired. Highest education level: high school graduate. Gender of partner(s): male. Priya Jerad " social history reviewed E&M reviewed today Priya Jerad " assessment of health literacy ([facility] 2014 Standards, 3C10) Adequate Priya Jerad " is there any chance that you could be ? No Priya Jerad " passive cigarette smoke exposure Yes Priya Jerad " smoking status former smoker Priya Jerad " Exercise Program Referral T Priya Jerad " Weight Management Counseling Provided T Priya Mars " Nutrition intervention T Priya Mars time of call 05/03/2018 12:59 PM Raysa Delroy Exercise Program Referral T Edward Roa Cindyuinasir " Weight Management Counseling Provided T Edward Roa Nnabuife " Nutrition intervention T Edward Roa Nnabuife " social history E&M Single. Not homeless. Born in [facility]. City: [facility]. State: [place]. Not employed. Retired. Highest education level: high school graduate. Gender of partner(s): male. Alayna Chapman " social history reviewed E&M reviewed today Alayna Chapman " assessment of health literacy ([facility] 2014 Standards, 3C10) Adequate Alayna Chapman " passive cigarette smoke exposure Yes Alayna Chapman " smoking status former smoker Alayna Chapman time of call 04/24/2018 11:41 AM Gayle Serrano drug use, illicit Never Stephanie Isabel " alcohol use Currently Stephanie Isabel " social history E&M Single. Not homeless. Born in [facility]. City: [facility]. State: [place]. Not employed. Retired. Highest education level: high school graduate. Gender of partner(s): male. Stephanie Isabel " social history reviewed E&M reviewed today Stephanie Isabel " assessment of health literacy ([facility] 2014 Standards, 3C10) Adequate Stephanie Chalo " [...] Born in [facility]. City: [facility]. State: [place]. Not employed. Retired. Highest education level: high school graduate. Gender of partner(s): male. Alayna Chapman " social history reviewed E&M reviewed today Alayna Chapman " assessment of health literacy ([facility] 2014 Standards, 3C10) Adequate Alayna Chapman " passive cigarette smoke exposure No Alayna Chapman " smoking status former smoker Alayna Chapman " Exercise Program Referral T Alayna Chapman " Weight Management Counseling Provided T Alayna Chapman " Nutrition intervention T Alayna Chapman Exercise Program Referral T Edward Boyceuinasir " Weight Management Counseling Provided T Edward Roa Nnabuife " Nutrition intervention T Edward Roa Nnabuife " alcohol use Currently Alayna Chapman " social history E&M Single. Not homeless. Born in [facility]. City: [facility]. State: [place]. Not employed. Retired. Highest education level: high school graduate. Gender of partner(s): male. Alayna Chapman " social history reviewed E&M reviewed today Alayna Chapman " assessment of health literacy ([facility] 2014 Standards, 3C10) Adequate Alayna Chapman " passive cigarette smoke exposure No Alayna Chapman " smoking status former smoker Alayna Chapman " assessment of health literacy ([facility] 2014 Standards, 3C10) Adequate Alayna Chapman " drug use, illicit Never Alayna Chapman " alcohol use Currently Alayna Chapman " social history E&M Single. Not homeless. Born in [facility]. City: [facility]. State: [place]. Not employed. Retired. Highest education level: high [...] Born in [facility]. City: [facility]. State: [place]. Not employed. Retired. Highest education level: high school graduate. Gender of partner(s): male. Vivian Sin " social history reviewed E&M reviewed today Vivian Sin " passive cigarette smoke exposure No Vivian Sin " smoking status former smoker Vivian Sin " Exercise Program Referral Miguel A Sin " Weight Management Counseling Provided T Vivian Sin " Nutrition intervention Miguel A Sin time of call 12/05/2017 2:22 PM Sera Bob drug use, illicit Never Stephanie Isabel " alcohol use Currently Stephanie Isabel " social history E&M Single. Not homeless. Born in [facility]. City: [facility]. State: [place]. Not employed. Retired. Highest education level: high school graduate. Gender of partner(s): male. Stephanie Isabel " social history reviewed E&M reviewed today Stephanie Isabel " passive cigarette smoke exposure Yes Stephanie Isabel " smoking status former smoker Stephanie Isabel " Exercise Program Referral T Stephanie Isabel " Weight Management Counseling Provided T Stephanie Isabel " Nutrition intervention T Stephanie Chalo time of call 10/25/2017 2:55 PM Ana M Palacio Exercise Program Referral T Edward Whiteabuife " Weight Management Counseling Provided T Edward Roa Nnabuife " Nutrition intervention T Edward Whiteabuife " social history E&M Single. Not homeless. Born in [facility]. City: [facility]. State: [place]. Not employed. Retired. Highest education level: high school graduate. Gender of partner(s): male. Edward Boyceuife " social history reviewed E&M reviewed today Edward Roa Nnabuife " drug use, illicit Never Nupur Chong " alcohol use Currently Nupur Chong " passive cigarette smoke exposure Yes Nupur Chong " smoking status former smoker Nupur Chong time of call 09/02/2017 9:48 AM [facility] No Edward Roa Nnabuife " social history E&M Single. Not homeless. Born in [facility]. City: [facility]. State: [place]. Not employed. Retired. Highest education level: high school graduate. Gender of partner(s): male. Edward Boyceuife " social history reviewed E&M reviewed today Edward Boyceuife " passive cigarette smoke exposure Yes Taina Riccardo " smoking status former smoker Taina Riccardo time of call 08/11/2017 8:56 AM Donna Sabiha Exercise Program Referral T Titi Kaitlynn " Weight Management Counseling Provided T Titicleveland Sommermi " Nutrition intervention T Titi Kaitlynn " passive cigarette smoke exposure No Taina Riccardo " smoking status former smoker Taina Riccardo time of call 07/21/2017 4:25 PM Alayna Gu social history E&M Single. Not homeless. Born in [facility]. City: [facility]. State: [place]. Not employed. Retired. Highest education level: high school graduate. Gender of partner(s): male. Edward Delgado " social history reviewed E&M reviewed today Edward Delgado " Exercise Program Referral T Edward Delgado " Weight Management Counseling Provided Miguel A Delgado " Nutrition intervention Miguel A Delgado [...] Born in [facility]. City: [facility]. State: [place]. Not employed. Retired. Highest education level: high [...] Diamond social history reviewed E&M reviewed today Honeytejas Gutierrez " social history E&M Single. Not homeless. Born in [facility]. City: [facility]. State: [place]. Not employed. Retired. Highest education level: high school graduate. Gender of partner(s): male. Honey Brenda " drug use, illicit Never Honeyniru Gutierrez " alcohol use Never Honeytejas Gutierrez " Occupation #1 Retired Honeytejas Gutierrez " patient considered to be homeless No Honey Gutierrez " passive cigarette smoke exposure Yes Honeytejas Gutierrez " cigarettes, number smoked per day [...] E&M no depression, anxiety, or agitation Edward Fraga " Generalized Anxiety Disorder Questionnaire - Question [...] Anxiety Disorder Questionnaire - Question 1 3 Sehrylsheryl Odonnell assessment of judgment and insight E&M intact Edward Whiteabui " mental status examination: orientation E&M oriented to time, place, and person [facility] N[facility] " assessment of mood and affect E&M no depression, anxiety, or agitation [facility] Nnab[facility] " Generalized Anxiety Disorder Questionnaire - Question 2 0 Francesca Diana " Generalized Anxiety Disorder Questionnaire - Question 1 0 Francesca Diana assessment of judgment and insight E&M intact Edward Whiteabui " mental status examination: orientation E&M oriented to time, place, and person [facility] N[facility] " assessment of mood and affect E&M no depression, anxiety, or agitation [facility] Nn[facility] " Generalized Anxiety Disorder Questionnaire - Question 2 0 Francesca Diana " Generalized Anxiety Disorder Questionnaire - Question 1 0 Francesca Diana assessment of judgment and insight E&M intact Edward [employer] Nnabui " assessment of mood and affect E&M no depression, anxiety, or agitation [facility] N[facility] " mental status examination: orientation E&M oriented to time, place, and person Chuvidhyalinda [employer] N[facility] " Generalized Anxiety Disorder Questionnaire - Question 2 0 Nupur Chong " Generalized Anxiety Disorder Questionnaire - Question 1 0 Nupur Chong assessment of judgment and insight E&M intact Edward [employer] Nnabuife " mental status examination: orientation E&M oriented to time, place, and person [facility]wlinda [facility] " assessment of mood and affect E&M no depression, anxiety, or agitation [facility] abui " Generalized Anxiety Disorder Questionnaire - Question 2 0 Stephanie Isabel " Generalized Anxiety Disorder Questionnaire - Question 1 0 Stephanie Isabel assessment of judgment and insight E&M intact Edward [employer] Nnabui " mental status examination: orientation E&M oriented to time, place, and person [facility] abuife " assessment of mood and affect E&M anxious, depressed mood [facility] abui " Generalized Anxiety Disorder Questionnaire - [...] Questionnaire - Question 1 0 Nupur Castillo assessment of judgment and insight E&M intact [facility] ab[facility] " mental status examination: orientation E&M oriented to time, place, and person [facility] abui " assessment of mood and affect E&M anxious, depressed mood [facility] " Generalized Anxiety Disorder Questionnaire - Question 2 0 Stephanie Isabel " Generalized Anxiety Disorder Questionnaire - Question 1 0 Stephanie Isabel assessment of judgment and insight E&M intact [facility] abui " mental status examination: orientation E&M oriented to time, place, and person [facility] abuife " assessment of mood and affect E&M anxious, depressed mood [facility] Whiteabuife mental status examination: orientation E&M alert and oriented Tiny George Mckeon " assessment of mood and affect E&M normal affect Tiny Vazquez Mckeon Generalized Anxiety Disorder Questionnaire - Question 2 0 Hafsa Will " Generalized Anxiety Disorder Questionnaire - Question 1 0 Hafsa Will Generalized Anxiety Disorder Questionnaire - Question 2 0 Violette Yuri " Generalized Anxiety Disorder Questionnaire - Question 1 0 Violette Welch assessment of judgment and insight E&M intact Gautamwlinda Roa Nnabuife " mental status examination: orientation E&M oriented to time, place, and person Chukwlinda [employer] N[facility] " assessment of mood and affect E&M anxious, depressed mood Chukwlinda [employer] Nnabuife assessment of judgment and insight E&M intact Chukwfabiánmeka [employer] Nnabuife " mental status examination: orientation E&M oriented to time, place, and person Chukwlinda [employer] N[facility] " assessment of mood and affect E&M anxious, depressed mood Chukwfabiánmejose j [employer] [facility] " Generalized Anxiety Disorder Questionnaire - Question 2 0 Priya Mars " Generalized Anxiety Disorder Questionnaire - Question 1 0 Priya Mars assessment of judgment and insight E&M intact Chukwfabiánmejose j [employer] N[facility] " mental status examination: orientation E&M oriented to time, place, and person Chukwlinda [employer] [facility] " assessment of mood and affect E&M anxious, depressed mood Chuodilia [employer] N[facility] " Generalized Anxiety Disorder Questionnaire - Question 2 0 Alayna Chapman " Generalized Anxiety Disorder Questionnaire - Question 1 0 Alayna Chapman assessment of judgment and insight E&M intact Edward Magañaian Nnabuife " mental status examination: orientation E&M oriented to time, place, and person Chukwlinda [employer] N[facility] " assessment of mood and affect E&M anxious, depressed mood Chuodilia [employer] N[facility] " Generalized Anxiety Disorder Questionnaire - Question 2 0 Stephanie Isabel " Generalized Anxiety Disorder Questionnaire - Question 1 0 Stephanie Isabel assessment of judgment and insight E&M intact [place]fabi[place]jose j [employer] [facility] " mental status examination: orientation E&M oriented to time, place, and person [place]ose j [employer] [facility] " assessment of mood and affect E&M anxious, depressed mood [facility] " Generalized Anxiety Disorder Questionnaire - Question 2 0 Alayna Chapman " Generalized Anxiety Disorder Questionnaire - Question 1 0 Alaynataye Chapman assessment of judgment and insight E&M intact Edward Delgado " mental status examination: orientation E&M oriented to time, place, and person [facility] " assessment of mood and affect E&M anxious, depressed mood [facility] " Generalized Anxiety Disorder Questionnaire - Question 2 0 Alayna Chapman " Generalized Anxiety Disorder Questionnaire - Question 1 0 Alayna Chapman assessment of judgment and insight E&M intact Edward Delgado " mental status examination: orientation E&M oriented to time, place, and person [facility] assessment of mood and affect E&M anxious, depressed mood [facility] " Generalized Anxiety Disorder Questionnaire - Question 2 0 Alaynataye Chapman " Generalized Anxiety Disorder Questionnaire - [...] content (mental status exam) (E&M) lucid Toma Mcclellandez " mental status assessment, process able to [...] mood and affect E&M anxious, depressed mood [facility] " assessment of judgment and insight E&M intact [facility] " mental status examination: orientation E&M oriented to time, place, and person [facility] " If any problems checked, how [...] assessment of judgment and insight E&M intact [facility] " mental status examination: orientation E&M oriented to time, place, and person [facility] " assessment of mood and affect E&M no depression, anxiety, or agitation [facility] " Generalized Anxiety Disorder Questionnaire - Question 2 0 Stephanie Isabel " Generalized Anxiety Disorder Questionnaire - Question 1 0 Stephanie Isabel Generalized Anxiety Disorder Questionnaire - Question 2 0 Nupur Chong " Generalized Anxiety Disorder Questionnaire - Question 1 0 Nupur Chong mental status examination: recall E&M intact for recent and remote events [facility] " assessment of judgment and insight E&M intact [facility] " mental status examination: orientation E&M oriented to time, place, and person [facility] " assessment of mood and affect E&M no depression, anxiety, or agitation [facility] " Generalized Anxiety Disorder Questionnaire - Question [...] E&M intact [facility] recent and [facility] events [facility] " mental status examination: orientation E&M oriented to time, place, and person [facility] " assessment of judgment and insight E&M intact [facility] " assessment of mood and affect E&M no depression, anxiety, or agitation [facility] " Generalized Anxiety Disorder Questionnaire - Question 2 0 Taina Gu " Generalized Anxiety Disorder Questionnaire - Question 1 0 Taina Gu Generalized Anxiety Disorder Questionnaire - Question 2 0 Francesca Stevenson " Generalized Anxiety Disorder Questionnaire - Question [...] Anxiety Disorder Questionnaire - Question 2 0 Colleenkaylin Gaspars " Generalized Anxiety Disorder Questionnaire - Question 1 0 Colleen Pace MEDICAL EQUIPMENT No Information Available FAMILY HISTORY No Information Available INSURANCE PROVIDERS Payer name Policy type / Coverage type Covered republican ID [employer] Medicare HMO Medicare HMO [id number] ADVANCE DIRECTIVES No Information Available TREATMENT PLAN [...] - - Est Patient Exp Problem - 83955 Est Patient Exp Problem - 10870 Est Patient Exp Problem - 38316 Finger Stick Glucose Est Patient Exp Problem - 24758 Est Patient Exp Problem - 43176 Est Patient Detailed - 22677 New Patient Intermediate Opth - 73744 Finger Stick Glucose Ear Irrigation Est Patient Exp Problem - 37727 Est Patient Exp Problem - 25277 Retinal Screening Est Patient Well Exam (40 - 64 Yrs) - 97486 Est Patient Detailed - 73325 Est Patient Exp Problem - 28528 Est Patient Exp Problem - 20809 New Patient Comprehensive - 95534 Glucose Stick Est Patient Exp Problem - 92682 Glucose Stick Est Patient Exp Problem - 88688 Prescription Assistance (Non-HIV) Glucose Stick Est Patient Exp Problem - 59749 Endocrinology - Adult - [facility] HEMOGLOBIN A1C - In House Est Patient Exp Problem - 01878 Est Patient Detailed - 02982 Est Patient Exp Problem - 57757 Est Patient Detailed - 19404 IB Assessment - Supervisor Cold Rolling Diagnostic evaluation (no medical) - 43724 Integrated Behavioral Health Assessment (IBH) Est Patient Exp Problem - 88860 Est Patient Detailed - 15623 Ofc Vst, Est Level V Est Patient Exp Problem - 40172 Est Patient Exp Problem - 52934 Ofc Vst, Est Level IV Est Patient Exp Problem - 76816 Ofc Vst, Est Level V Est Patient Exp Problem - 27908 Est Patient Detailed - 53802 Est Patient Detailed - 85214 ALBUTEROL INHAL ADMIN THRU DME 1MG Est Patient Detailed - 16305 Est Patient Exp Problem - 08228 Est Patient Exp Problem - 83844 Ear Irrigation Est Patient Exp Problem - 15210 Ofc Vst, Est Level III Est Patient Exp Problem - 48778 HISTORY OF PROCEDURES Procedure Date Procedure Name Provider Procedure Notes Status Finger Stick Glucose Gill Villafuerte completed New Patient Intermediate Opt - 59433 Satinder Harman completed Finger Stick Glucose Satinder Harman completed Ear Irrigation Satinder Harman completed Glucose Stick Gill Villafuerte completed Glucose Stick Satinder Harman completed Glucose Stick Gill Villafuerte completed HEMOGLOBIN A1C - In House Comfort Trevino completed [facility] Assessment - Supervisor Cold Rolling Toma Woods completed Diagnostic evaluation (no medical) - 82849 Toma Woods completed ALBUTEROL INHAL ADMIN THRU DME 1MG Deniz Brown completed Ear Irrigation Thea Junior completed GOALS No Information Available HE[facility] CONCERNS No Information Available
--- OUTSIDE RECORDS SUMMARY | 2019-09-25 17:52 | XMS REPORT ---
Author Author Admin, [place] Organization Unknown Address Unknown Phone Unavailable PROBLEMS Condition Status Date Provider Notes Constipation, drug induced active Edward Roa Nnabuife Hordeolum, internal active Edward Roa [place]ife Hypokalemia, mild active Edward Roa [place] Chronic pain syndrome active Edward Roa [place] Cerumen impaction, bilateral active Edward Roa [place] Well woman exam active Edward Roa [place] BMI 50.0-59.9 active Edward Magaañian N[place] BMI 60.0-69.9, adult completed - Edward Roa N[place]abuife CHF exacerbation active Edward Roa [place] Dyspnea at rest active Edward Roa N[place] Acute upper respiratory infection active Edward Roa [place] Screening for lipid disorder active Edward Roa [place] Screening for diabetes mellitus active Edward Roa [place] GERD active Ewdard Roa [place] Diabetes mellitus type II active Edward Roa [place] Urinary retention active Edward Roa [place] Ascites active Edward Roa [place] Abdominal pain, chronic active Edward Roa [place] Abdominal distension [facility] [place] Mood Disorder, NOS active Toma Woods Suicidal ideation [facility] [place] Depression, major active [facility] [place] COPD with exacerbation active Jamarlinda Roa [place] BMI 50.0-59.9 completed - Tiny Vazquez Mckeon Chronic bronchitis active [facility] [place] Breast abnormal findings active Jamarlinda [...] Encounter Diagnosis - Ambulatory Encounter Kimberly Yeh [facility] UNK - Ambulatory Encounter [facility] - [facility]ulatory Encounter [facility] UNK - Ambulatory Encounter F[facility] - Ambulatory Encounter Gill Roa [place] Edward Magañaian Nnabuife [facility] UNK - Ambulatory Encounter Kimberly Jorgensen [facility] UNK - Ambulatory Encounter Kimberly Jorgensen Loly Goldy Leon Yazidism [place] Edward Yazidism [place] Ofelia Ko [facility] UNK - Ambulatory Encounter Kimberly Jorgensen Camelia [facility] Services Contact Center UNK - Ambulatory Encounter Edward Whiteabuife Edward Yazidism Nnabuife [facility] UNK - Ambulatory Encounter Chuodilia Yazidism [place] Edward Yazidism Nn[place]uife [facility] UNK - Ambulatory Encounter Edward Yazidism [place] Gautamwlinda Yazidism N[place] [facility] UNK - Ambulatory Encounter Gill Leon Yazidism [place] Edward Yazidism [place] Sheryl Odonnell [facility] Constipation, drug induced - Ambulatory Encounter Edward Magañaian N[place] Edward Yazidism [place] Bronson Marroquin MedAdherence, [facility] UNK - Ambulatory Encounter Edward Magañaian [place] Edward Yazidism [place] Danay Langley MedAdherence [facility] Services UNK - Ambulatory Encounter Violette Salazar [facility] UNK - Ambulatory Encounter Chuodilia Roa Nnabuinasir Leon Yazidism Nn[place]uife [facility] UNK - Ambulatory Encounter LSJ Lab Support Desktop LinkLogic Edward Yazidism N[place] Edward Yazidism Nnabuife [facility] UNK - Ambulatory Encounter F[facility] Status [facility] UNK - Ambulatory Encounter Fax Status [facility] UNK - Ambulatory Encounter Fax Status [facility] UNK - Ambulatory Encounter Edward Roa Nnabuinasir Leon Yazidism Nnabuife [facility] UNK - Ambulatory Encounter Chuodilia Yazidism [place] Gautamwlinda Yazidism Nn[place] [facility] UNK - Ambulatory Encounter Chuodilia Yazidism [place] Edward Yazidism Nn[place]uife [facility] UNK - Ambulatory Encounter Satinder Leon Yazidism [place] Edward Yazidism [place] Francesca Ernesto Diana [facility] Hordeolum, internal - Ambulatory Encounter Comfort Marroquin MedAdherence, [facility] Services UNK - Ambulatory Encounter Comfort Langley MedAdherence [facility] Services UNK - Ambulatory Encounter Kimberly Delaney UNK - Ambulatory Encounter Gill Marroquin [facility], [facility] UNK - Ambulatory Encounter Edward Whiteabuinasir Leon Yazidism N[place] [facility] UNK - Ambulatory Encounter Edward Whiteabuinasir Leon Yazidism N[place] [facility] Practice UNK - Ambulatory Encounter Gill [place] Edward Roa [place] Francesca Diana [facility] UNK - Ambulatory Encounter Comfort Ellsworth MedAdherence, [facility] UNK - Ambulatory Encounter Comfort Marroquin MedAdherence, [facility] Services UNK - Ambulatory Encounter Edward Roa [place] [facility] - [facility]ulatory Encounter Comfort Hernandez MedAdherence [facility] Services UNK - Ambulatory Encounter Fax Status LinkLogic [facility] Services UNK - Ambulatory Encounter Fax Status [facility] UNK - Ambulatory Encounter Fax Status [facility] Services UNK - Ambulatory Encounter Edward Whiteabuinasir Roa N[place] [facility] UNK - Ambulatory Encounter Satinder [place]abuife Edward Yazidism Nnabuife [facility] Hypokalemia, mild - Ambulatory Encounter Chuodilia Yazidism [place] Edward Yazidism Nnabuife [facility] UNK - Ambulatory Encounter LSJ Lab Support Desktop LinkLogic Edward Yazidism [place] Gautamwlinda Yazidism Nnabuife [facility] UNK - Ambulatory Encounter Fax Status [facility] Services UNK - Ambulatory Encounter Fax Status [facility] UNK - Ambulatory Encounter Fax Status [facility] UNK - Ambulatory Encounter Fax Status [facility] UNK - Ambulatory Encounter Edward Yazidism N[place] Edward Yazidism Nnabuife [facility] UNK - Ambulatory Encounter Chuodilia Yazidism [place] Gautamwlinda Yazidism Nn[place] [facility] UNK - Ambulatory Encounter Chuodilia Yazidism [place] Gautamwlinda Yazidism Nn[place]ife [facility] UNK - Ambulatory Encounter Satinder Leon Yazidism [place] Edward Yazidism [place] Sheryl Odonnell [facility] UNK - Ambulatory Encounter Comfort Pedersen [facility] - Ambulatory Encounter Comfort Christianson MedAdherence [facility] UNK - Ambulatory Encounter Tiara Christianson MedAdherence [facility] UNK - Ambulatory Encounter Edward Roa Nn[place] Edward Yazidism N[place] LinkLogic [facility] UNK - Ambulatory Encounter Osiris Gordon LinkLogic [facility] UNK - Ambulatory Encounter Chuodilia Yazidism [place] Edward Yazidism N[place] LinkLogic [facility] UNK - Ambulatory Encounter Comfort Christianson MedAdherence [facility] UNK - Ambulatory Encounter Edward Whiteabuife Edward Magañaian Nnabuife [facility] UNK - Ambulatory Encounter Chuodilia Magañaian [place] Edward Yazidism Nnabuife [facility] UNK - Ambulatory Encounter Chuodilia Roa [place] Edward Yazidism Nnabuife [facility] UNK - Ambulatory Encounter Satinder Leon Yazidism [place] Edward Yazidism Nnabuife [facility] Chronic pain syndrome - Ambulatory Encounter Edward Yazidism N[place] Edward Yazidism Nnabuife [facility] UNK - Ambulatory Encounter LSJ Lab Support Desktop LinkLogic Edward Magañaian [place] Edward Yazidism N[place]ife [facility] UNK - Ambulatory Encounter Chukwuemeka Yazidism Nnabuinasir Florezwilnda Roa Nnabuinasir [facility] UNK - Ambulatory Encounter Edward Whiteabuinasir Leon Yazidism N[place] [facility] UNK - Ambulatory Encounter Comfort Roa [place] Edward Roa Nnabuinasir Benítez [facility] Well woman examCerumen impaction, bilateral - Ambulatory Encounter Satinder Christianson MedAdherence [facility] UNK - Ambulatory Encounter Satinder Christianson MedAdherence Eleelejimbo Gagnon [place] UNK - Ambulatory Encounter Satinder Christianson MedAdherence Edward Whiteabjaimie Roa Nnabuinasir Eleelejimbo Gagnon [facility] UNK - Ambulatory Encounter Satinder Christianson MedAdherence [facility] UNK - Ambulatory Encounter Tiara Christianson MedAdherence Alayna Gu [facility] Services [facility] Center UNK - Ambulatory Encounter Edward Whiteabjaimie Roa [place] [facility] UNK - Ambulatory Encounter Edward Whiteabuinasir Whiteabuife [facility] UNK - Ambulatory Encounter Satinder Christianson MedAdherence [facility] UNK - Ambulatory Encounter Satinder Harman [facility] - Ambulatory Encounter Fax Status LinkLogic [facility] Services UNK - Ambulatory Encounter Fax Status LinkLogic [facility] Services UNK - Ambulatory Encounter Fax Status LinkLogic [facility] Services UNK - Ambulatory Encounter Fax Status LinkLogic [facility] Services UNK - Ambulatory Encounter Fax Status LinkLogic [facility] Services UNK - Ambulatory Encounter Fax Status LinkLogic [facility] Services UNK - Ambulatory Encounter [facility]atinder [facility] - Ambulatory Encounter Tiara Christianson MedAdherence Satinder Engel [facility] Services Contact Center UNK - Ambulatory Encounter Kimberly Roa [place] Edward Roa N[place] [facility] Services Contact Center UNK - Ambulatory Encounter Satinder Christianson MedAdherence [facility] UNK - Ambulatory Encounter Satinder Harman LinkLogic [facility] UNK - Ambulatory Encounter Fax Status LinkLogic [facility] Services UNK - Ambulatory Encounter Lo Christianson MedAdherence [facility] UNK - Ambulatory Encounter Edward Roa N[place] Edward Yazidism N[place] LinkLogic [facility] UNK - Ambulatory Encounter Edward [place] Edward Magañaian Nn[place]uife LinkLogic [facility] UNK - Ambulatory Encounter Bryankathya Yazidism Nnabuinasir Florezwlinda Yazidism Nnabuinasir [facility] UNK - Ambulatory Encounter Opallinda Yazidism Nnabuinasir Florezwlinda Yazidism Nnabuife [facility] UNK - Ambulatory Encounter Opallinda Crispin Whiteabuinasir Florezwlinda Yazidism N[place] [facility] UNK - Ambulatory Encounter Yonnydarryl Sierra Roldankwuemejose j Crispin [place] Opaluemejose j Yazidism N[place]ife [facility] BMI 60.0-69.9, adultBMI 50.0-59.9 - Ambulatory Encounter Alayna Nava [facility] Services UNK - Ambulatory Encounter Kayla Ruel [facility] UNK - Ambulatory Encounter Kaylakaylin VoRuel [facility] UNK - Ambulatory Encounter Bryankathya Crispin Whiteabuinasir Roldankwuemejose j Yazidism [place] Kayla Ruel [facility] UNK - Ambulatory Encounter [facility]atinder [facility] Kayla Florezwuemejose j Whiteabuinasir Roldankwuemejose j Yazidism Nnabuinasri Reich [facility] UNK - Ambulatory Encounter Fax Status LinkLogic [facility] Services UNK - Ambulatory Encounter Fax Status LinkLogic [facility] Services UNK - Ambulatory Encounter Fax Status LinkLogic [facility] Services UNK - Ambulatory Encounter Fax Status LinkLogic [facility] Services UNK - Ambulatory Encounter Bhavya Pedersen MedAdherfaheem Elyace Ron [facility] Services Contact Center UNK - Ambulatory Encounter Edward Whiteabuinasir Leon Yazidism Nnabuife [facility] UNK - Ambulatory Encounter Edward Whiteabuinasir Leon Yazidism Nnabuife [facility] UNK - Ambulatory Encounter Edward Whiteabuife Edward Yazidism Nnabuife [facility] UNK - Ambulatory Encounter Comfort Roa [place] Edward Roa [place] Hafsa Will [facility] Dyspnea at restCHF exacerbation - Ambulatory Encounter Tiny Vazquez Mckeon Tiny Vazquez Mckeon [facility] UNK - Ambulatory Encounter Tiny Vazquez Mckeon Tiny Vazquez Mckeon Violette Pool [facility] BMI 50.0-59.9BMI 60.0-69.9, adult - Ambulatory Encounter Kayla Lipscomb [facility] UNK - Ambulatory Encounter Satinder Christianson MedAdherence Francesca Potts [facility] Services Contact Center UNK - Ambulatory Encounter Violette Pool Kayla Lipscomb [facility] UNK - Ambulatory Encounter Edward Whiteabuife Edward aMgañaian Nnabuife LinkLogedward [facility] UNK - Ambulatory Encounter Edward Whiteabuinasir Leon Yazidism Nn[place] [facility] UNK - Ambulatory Encounter Bryankathya Yazidism Nnabuinasir Adamskathya Yazidism Nnabuife [facility] UNK - Ambulatory Encounter Bryankathya Yazidism [place] Bryankathya Yazidism Nnabuife [facility] UNK - Ambulatory Encounter Abisaijose j Yazidism [place] Bryankathya Yazidism Nn[place]uife [facility] UNK - Ambulatory Encounter Gill Baronejose j Crispin [place] Abisaijose j Yazidism N[place] Violette Will [facility] Acute upper respiratory infection - Ambulatory Encounter Bhavya Pedersen MedAdherence [facility] UNK - Ambulatory Encounter Satinder Burrisberg [facility] UNK - Ambulatory Encounter Bhavya Pedersen [facility] Services [facility] Center UNK - Ambulatory Encounter Comfort Trevino [facility] UNK - Ambulatory Encounter Norma Ibarra [facility] Services UNK - Ambulatory Encounter Fax Status [facility] UNK - Ambulatory Encounter Fax Status [facility] Services UNK - Ambulatory Encounter Fax Status [facility] UNK - Ambulatory Encounter Alayna Chapman [facility] UNK - Ambulatory Encounter Abisaijose j Crispin Whiteabjaimie Baronejose j Crispin Whiteabuife [facility] UNK - Ambulatory Encounter Chukkavin Yazidism [place] Chukwfabiánmejose j Yazidism N[place]uife [facility] UNK - Ambulatory Encounter Chukwlinda Yazidism [place] Chukwuemejose j Yazidism Nnabuife [facility] UNK - Ambulatory Encounter Satinder Klein Chukwuemejose j Yazidism [place] Chukwuemejose j Yazidism [place] Priya Mars [facility] UNK - Ambulatory Encounter Parris Oleary [facility] UNK - Ambulatory Encounter Chukwlinda Yazidism [place] Jamarkwlinda Yazidism N[place] LinkLogic [facility] UNK - Ambulatory Encounter Bhavya Moserlory Chuvidhyawuekathya Yazidism [place] Jamarkwlinda Yazidism [place] Raysa Potts [facility] Services Contact Center UNK - Ambulatory Encounter Chukwlinda Yazidism [place] Jamarkwuekathya Yazidism Nn[place]uife [facility] UNK - Ambulatory Encounter Chukwlinda Yazidism [place] Jamarkwlinda Yazidism Nnabuife [facility] UNK - Ambulatory Encounter Chukkavin Yazidism [place] Jamarkwfabiánmejose j Yazidism N[place]uife [facility] UNK - Ambulatory Encounter Chukkavin Yazidism [place] Chukwuemejose j Yazidism Nn[place]ife [facility] UNK - Ambulatory Encounter Gill Magañaian N[place] Chukwuemejose j Yazidism Nn[place]uife [facility] UNK - Ambulatory Encounter Bhavya Pedersen MedAdherence [facility] UNK - Ambulatory Encounter Kayla Ruel Gayle Joey Serrano [facility] UNK - Ambulatory Encounter Chukwlinda Yazidism N[place] Chukwuekathya Yazidism Nnabuife [facility] UNK - Ambulatory Encounter Tab Chang [facility] UNK - Ambulatory Encounter Chukwlinda Yazidism [place] Chukwuemejose j Yazidism Nn[place]uife [facility] UNK - Ambulatory Encounter Chukkavin Yazidism [place] Chukwlinda Yazidism Nn[place]uife [facility] UNK - Ambulatory Encounter LSJ Lab Support Desktop LinkLogic Tab Leon Yazidism [place] Chukwuemejose j Yazidism Nn[place]ife [facility] UNK - Ambulatory Encounter Chukwlinda Yazidism [place] Jamarkwlinda Yazidism Nnabuife [facility] UNK - Ambulatory Encounter Chukwuekathya Yazidism [place] Chukwuemejose j Yazidism Nn[place]uife [facility] UNK - Ambulatory Encounter Chukwlinda Yazidism N[place] Chukwuemeka Yazidism Nnabuife [facility] UNK - Ambulatory Encounter Comfort Christianson MedAdherence Chuvidhyawuektahya Yazidism [place] Chukwuemejose j Yazidism [place] Marielena Boonenamarcia Reich [facility] Screening for diabetes mellitusScreening for lipid disorder - Ambulatory Encounter Chukwuemejose j Yazidism [place] Chukwuemeka Yazidism Nn[place]uife [facility] GERD - Ambulatory Encounter Chukwuemejose j Yazidism [place] Chukwuemejose j Yazidism [place] Stephanie Isabel [facility] UNK - Ambulatory Encounter Chukwuemejose j Yazidism [place] Chukwuemejose j Yazidism N[place] [facility] UNK - Ambulatory Encounter Tab Roldankkavin Yazidism [place] Chukwuekathya Yazidism [place] Vivian Pope [facility] Services Contact Center UNK - Ambulatory Encounter Chukwuemejose j Yazidism [place] Chukwuemejose j Yazidism Nnabuife [facility] UNK - Ambulatory Encounter Chukwuemejose j Yazidism [place] Chukwuemeka Yazidism Nnabuife [facility] UNK - Ambulatory Encounter Chukwuemejose j Yazidism [place] Chukwuemeka Yazidism Nnabuife [facility] UNK - Ambulatory Encounter Comfort Roldankwlinda Yazidism N[place] Chukwuemejose j Yazidism Nn[place]ife [facility] Diabetes mellitus type II - Ambulatory Encounter Chukwuemejose j Yazidism [place] Chukwuemeka Yazidism N[place] LinkLogic [facility] UNK - Ambulatory Encounter Chukwlinda Yazidism [place] Edward Yazidism N[place] LinkLogic [facility] UNK - Ambulatory Encounter Loly Winslow [facility] UNK - Ambulatory Encounter Chuodilia Yazidism [place] Edward Yazidism N[place] LinkLogic [facility] UNK - Ambulatory Encounter Chuodilia Yazidism [place] Edward Yazidism Nnabuife [facility] UNK - Ambulatory Encounter Chuodilia Yazidism [place] Edward Yazidism Nnabuife [facility] UNK - Ambulatory Encounter Edward Yazidism N[place] Edward Yazidism Nnabuife [facility] UNK - Ambulatory Encounter Chuodilia Yazidism [place] Edward Yazidism Nnabuife [facility] UNK - Ambulatory Encounter Satinder Florezwuekathya Yazidism [place] Gautamwuekathya Yazidism N[place]ife [facility] UNK - Ambulatory Encounter Tiara Christianson MedAdherence [facility] UNK - Ambulatory Encounter Bhavya Pedersen MedAdherence [facility] UNK - Ambulatory Encounter Bhavya Pedersen MedAdherence LinkLogic [facility] UNK - Ambulatory Encounter Titi Kailtynn Titicleveland Calderón LinkLogic [facility] UNK - Ambulatory Encounter Chuodilia Yazidism [place] Edward Yazidism N[place] LinkLogic [facility] UNK - Ambulatory Encounter Chukwuemejose j Yazidism [place] Chukwuemeka Yazidism [place] LinkLogic [facility] UNK - Ambulatory Encounter Chukwuemejose j Yazidism [place] Chukwuemeka Yazidism Nn[place]uife [facility] UNK - Ambulatory Encounter Chukwuemeka Yazidism [place] Chukwuemeka Yazidism Nnabuife [facility] UNK - Ambulatory Encounter Chukwuemeka Yazidism [place] Chukwuemeka Yazidism Nnabuife [facility] UNK - Ambulatory Encounter Chukwallanjose j Yazidism [place] Chukwuemeka Yazidism Nn[place]uife [facility] UNK - Ambulatory Encounter Comfort Roldankwlinda Yazidism N[place] Chukwuemejose j Yazidism N[place]ife [facility] Abdominal distensionAbdominal pain, chronicAscitesUrinary retention - Ambulatory Encounter Tiara Christianson MedAdherence [facility] UNK - Ambulatory Encounter Tiara Christianson MedAdherence Loly Puckett [facility] Services UNK - Ambulatory Encounter Tiara Christianson MedAdherence [facility] UNK - Ambulatory Encounter Comfort Trevino [facility] UNK - Ambulatory Encounter Mae Rodney [facility] UNK - Ambulatory Encounter Fax Status [facility] Services UNK - Ambulatory Encounter Fax Status [facility] Services UNK - Ambulatory Encounter Fax Status LinkLogic [facility] Services UNK - Ambulatory Encounter Fax Status LinkLogic [facility] Services UNK - Ambulatory Encounter Fax Status LinkLogic [facility] Services UNK - Ambulatory Encounter Fax Status LinkLogic [facility] Services UNK - Ambulatory Encounter Chukwuemejose j Yazidism N[place] Chukwuemejose j Yazidism N[place]ife [facility] UNK - Ambulatory Encounter Chukkavin Yazidism [place] Chukwuemejose j Yazidism N[place] [facility] UNK - Ambulatory Encounter Chukwlinda Yazidism [place] Chukwuemejose j Yazidism N[place] [facility] UNK - Ambulatory Encounter Toma Woods [facility] Mood Disorder, NOS - Ambulatory Encounter Lo Florezwuekathya Yazidism [place] Jamarkwlinda Yazidism [place] Vivian Catalan Navadione Matthews [facility] Depression, majorSuicidal ideation - Ambulatory Encounter Comfort Trevino LinkLog [facility] UNK - Ambulatory Encounter Tiara Bob [facility] Services UNK - Ambulatory Encounter Bhavya Pedersen MedAdherence [facility] UNK - Ambulatory Encounter Bhavya Pedersen MedAdherence LinkLogic [facility] UNK - Ambulatory Encounter Edward Yazidism N[place] Jamarkwuemeka Yazidism Nn[place]uife [facility] UNK - Ambulatory Encounter Churameshjose j Yazidism [place] Jamarkwuekathya Yazidism N[place] [facility] UNK - Ambulatory Encounter Chuvidhyawlinda Yazidism [place] Jamarkwuekathya Yazidism N[place] [facility] UNK - Ambulatory Encounter Chuomaruekathya Yazidism [place] Jamarkwuekathya Yazidism N[place] [facility] UNK - Ambulatory Encounter Chuvidhyawuekathya Yazidism [place] Jamarkwuemejose j Yazidism N[place] [facility] UNK - Ambulatory Encounter Gill Roldankwuemejose j Yazidism [place] Jamarkwuemejose j Yazidism N[place] [facility] UNK - Ambulatory Encounter Loly Winslow [facility] UNK - Ambulatory Encounter Tiara Christianson [facility] - Ambulatory Encounter Opaluekathya Yazidism [place] Jamarkwuekathya Yazidism N[place] [facility] UNK - Ambulatory Encounter Bhavya Pedersen MedAdherence [facility] UNK - Ambulatory Encounter Bhavya Pedersen MedAdherence LinkLogic [facility] UNK - Ambulatory Encounter Gautamwuemeka Yazidism [place] Jamarkwuemeka Yazidism [place] Tab Matthews [facility] UNK - Ambulatory Encounter Comfort Trevino LinkLog [facility] UNK - Ambulatory Encounter Chuodilia Yazidism [place] Edward Yazidism [place] [facility] UNK - Ambulatory Encounter Chuodilia Yazidism [place] Edward Yazidism [place] [facility] UNK - Ambulatory Encounter Chuodilia Yazidism [place] Chukwlinda Yazidism [place] [facility] UNK - Ambulatory Encounter Chuodilia Yazidism [place] Edward Yazidism [place] [facility] UNK - Ambulatory Encounter Comfort Magañaian [place] Edward Yazidism [place] [facility] COPD with exacerbation - Ambulatory Encounter Tiara Christianson MedAdherence [facility] UNK - Ambulatory Encounter Tiara Christianson MedAdherence Loly Thompson [facility] UNK - Ambulatory Encounter Tiara Christianson MedAdherence [facility] UNK - Ambulatory Encounter Edward Yazidism [place] Edward Yazidism [place] [facility] UNK - Ambulatory Encounter Edward Yazidism [place] Edward Yazidism [place] [facility] UNK - Ambulatory Encounter Gill Leon Yazidism [place] Edward Yazidism [place] [facility] UNK - Ambulatory Encounter Loly Thompson [facility] UNK - Ambulatory Encounter Edward Roa Nnabuinasir Delgado [facility] - [facility] En[facility] - [facility]ulatory Encounter Fax Status LinkLogic [facility] UNK - Ambulatory Encounter Fax Status LinkLogic [facility] UNK - Ambulatory Encounter [facility] - [facility]ulatory Encounter F[facility] UNK - Ambulatory Encounter F[facility] UNK - Ambulatory Encounter Fax Status LinkLogic [facility] UNK - Ambulatory Encounter Titi Kaitlynn Titi Kaitlynn [facility] UNK - Ambulatory Encounter Titi Kaitlynn Titi Kaitlynn [facility] UNK - Ambulatory Encounter Titi Kaitlynn Titi Kaitlynn [facility] UNK - Ambulatory Encounter Lo Gu Titi Kaitlynn Titi Kaitlynn [facility] MUSCLE SPASMEAR PAIN, RIGHTCandidal vaginitisOtitis media, acute - Ambulatory Encounter Satinder Gu [facility] Contact Center UNK - Ambulatory Encounter F[facility] UNK - Ambulatory Encounter Fax Status [facility] UNK - Ambulatory Encounter Fax Status [facility] UNK - Ambulatory Encounter Bhavya Pedersen MedBhavani Loly [facility] Services UNK - Ambulatory Encounter Chukwuekathya Yazidism [place] Jamarkwuemejose j Yazidism [place] [facility] UNK - Ambulatory Encounter Satinder Roldankwuemeka Yazidism [place] Edward Roa [place] Ayanna Matthews [facility] Breast abnormal findingsChronic bronchitisBMI 50.0-59.9 - Ambulatory Encounter Comfort Trevino LinkLogic [facility] UNK - Ambulatory Encounter Tiara Sammy MedAdherence [facility] UNK - Ambulatory Encounter Tiara Sammy MedAdherence LinkLog[facility] UNK - Ambulatory Encounter Bhavya Pedersen MedAdherence [facility] UNK - Ambulatory Encounter Bhavya Pedersen MedAdherence LinkLog[facility] UNK - Ambulatory Encounter Madhumita Sierra [facility] UNK - Ambulatory Encounter Madhumita Sierra LinkLog[facility] UNK - Ambulatory Encounter Bhavya Pedersen MedAdherence Stephanie Hernandez [facility] Services Contact Center UNK - Ambulatory Encounter Madhumita Sierra [facility] UNK - Ambulatory Encounter Madhumita Sierra LinkLog[facility] UNK - Ambulatory Encounter Madhumita Sierra [facility] UNK - Ambulatory Encounter Nupur Chong [facility] Practice UNK - Ambulatory Encounter Nupur Chong [facility] UNK - Ambulatory Encounter Edwin Umana Edwin Umana [facility] UNK - Ambulatory Encounter Edwin Lyndsay Umana [facility] UNK - Ambulatory Encounter Edwin Lyndsay Umana [facility] UNK - Ambulatory Encounter Comfort Ma Gamino [facility] MORBID OBESITYOtitis media, acute - Ambulatory Encounter Fabricio Beard [facility] UNK - Ambulatory Encounter Madjordimitkaylin Esquivel [facility] UNK - Ambulatory Encounter [facility]humitkaylin [facility] Candidal vaginitis - Ambulatory Encounter Yonnydarryl Sierra [facility] UNK - Ambulatory Encounter Breana Rosario [facility] UNK - Ambulatory Encounter Breana Rosario [facility] UNK - Ambulatory Encounter Mary Soto [facility] UNK - Ambulatory Encounter Fabricio Beard [facility] UNK - Ambulatory Encounter Bria Young [facility] UNK - [facility] Encounter Fabricio Beard [facility] UNK - Ambulatory Encounter Gita Dewey LinkLogic [facility] UNK - Ambulatory Encounter Comfort Trevino [facility] UNK - Ambulatory Encounter [facility]hav[facility] - Ambulatory Encounter Comfort Trevino LinkLogic [facility] UNK - Ambulatory Encounter Carmelina Gu 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 UNK - Ambulatory Encounter Jan Johnson [facility] 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 UNK - Ambulatory Encounter Fax Status LinkLogic [facility] UNK - Ambulatory Encounter Fax Status LinkLog[facility] UNK - Ambulatory Encounter Fax Status Link[facility] UNK - Ambulatory Encounter Deniz Dunn [facility] UNK - Ambulatory Encounter Bhavya Pedersen MedAdherence [facility] UNK - Ambulatory Encounter Comfort Trevino LinkLogic [facility] UNK - Ambulatory Encounter Comfort Trevino [facility] UNK - Ambulatory Encounter Comfort Trevino LinkLogic [facility] UNK - Ambulatory Encounter Fax Status LinkLogic [facility] UNK - Ambulatory Encounter Fax Status LinkLog[facility] UNK - Ambulatory Encounter Comfort Trevino LinkLogic [facility] UNK - Ambulatory Encounter Fax Status LinkLog[facility] UNK - Ambulatory Encounter Fax Status LinkLogic [facility] UNK - Ambulatory Encounter Comfort Trevino LinkLogic [facility] UNK - Ambulatory Encounter Comfort Trevino LinkLogic [facility] UNK - Ambulatory Encounter Comfort Trevino LinkLogic [facility] UNK - Ambulatory Encounter Comfort Trevino LinkLogic [facility] UNK - Ambulatory Encounter Kimberly Pedersen MedAdherfaheem [place] Gaston [facility] UNK - Ambulatory Encounter Kimberly Trevino [facility] UNK - [facility]ulatory Encounter Fax Status LinkLogic [facility] UNK - Ambulatory Encounter Fax Status LinkLogic [facility] UNK - Ambulatory Encounter Fax Status LinkLog[facility] UNK - Ambulatory Encounter Kimberly Trevino [facility] UNK - Ambulatory Encounter Comfort Trevino [facility] UNK - Ambulatory Encounter Comfort Trevino LinkLogic Kimberly Jorgensen [facility] UNK - Ambulatory Encounter Fax Status LinkLog[facility] UNK - Ambulatory Encounter Jenny Gaston [facility] UNK - Ambulatory Encounter Fax Status LinkLogic [facility] UNK - Ambulatory Encounter Fax Status LinkLog[facility] UNK - Ambulatory Encounter Comfort TorresLogedward [facility] UNK - Ambulatory Encounter Kimberly Trevino [facility] UNK - Ambulatory Encounter Comfort TorresLogedward Jorgensen [facility] UNK - Ambulatory Encounter Jenny Feldman [facility] UNK - Ambulatory Encounter Gosia Trevino [facility] UNK - Ambulatory Encounter Comfort TorresLogedward Mayes [facility] UNK - Ambulatory Encounter Comfort Ward [facility] CHRONIC OBSTRUCTIVE PULMONARY DISEASE, ACUTE EXACERBATIONCHFSLEEP APNEA - Ambulatory Encounter Gill [facility]afuerte [facility] - Ambulatory Encounter Fax Status LinkLogic [facility] UNK - Ambulatory Encounter Fax Status LinkLogic [facility] UNK - Ambulatory Encounter Fax Status LinkLogic [facility] UNK - Ambulatory Encounter Fax Status LinkLogic [facility] UNK - Ambulatory Encounter Fax Status LinkLogic [facility] UNK - Ambulatory Encounter Fax Status LinkLogic [facility] UNK - Ambulatory Encounter Fax Status LinkLogic [facility] UNK - Ambulatory Encounter Jenny Feldman [facility] UNK - Ambulatory Encounter Thea Puppala Thea Puppala Rosalinda Ward [facility] LOW BACK PAIN - Ambulatory Encounter Sabra Mitchell [facility] UNK - Ambulatory Encounter Sabra Mitchell [facility] UNK - Ambulatory Encounter Ernesto Gaffney [facility] DEPENDENT EDEMA, LEGS - Ambulatory Encounter [facility] - [facility]ulatory Encounter Bhavya Pedersen [facility] - Ambulatory Encounter [facility] UNK - Ambulatory Encounter [facility] UNK - Ambulatory Encounter [facility] UNK [facility] Ambulatory Encounter [facility] UNK - Ambulatory Encounter [facility] UNK - Ambulatory Encounter Malena Isabel [facility] UNK - Ambulatory Encounter Ernesto Matthews [facility] EAR PAIN, RIGHTBLURRED VISIONHEARING DEFICIT - Ambulatory Encounter Mormonism Preload LinkLogic [facility] UNK - Ambulatory Encounter Mormonism Preload LinkLogic [facility] UNK - Ambulatory Encounter Mormonism Preload LinkLogic [facility] UNK - Ambulatory Encounter Mormonism Preload LinkLogic [facility] UNK - Ambulatory Encounter Mormonism Preload LinkLogic [facility] UNK - Ambulatory Encounter Mormonism Preload [facility]Logic [facility] UNK - Ambulatory Encounter Mormonism Preload LinkLogic [facility] UNK - Ambulatory Encounter Mormonism Preload LinkLogic [facility] UNK - Ambulatory Encounter Mormonism Preload [facility]Log[facility] UNK - Ambulatory Encounter Mormonism Preload [facility] UNK - Ambulatory Encounter Mormonism Preload [facility]Logic [facility] UNK - Ambulatory Encounter Mormonism Preload LinkLogic [facility] UNK - Ambulatory Encounter Mormonism Preload LinkLogic [facility] UNK - Ambulatory Encounter Mormonism Preload LinkLogic [facility] UNK - Ambulatory Encounter Mormonism Preload [facility]ic [facility] UNK - Ambulatory Encounter Mormonism Preload [facility]ic [facility] UNK - Ambulatory Encounter Mormonism Preload LinkLogic [facility] UNK - Ambulatory Encounter Mormonism Preload LinkLogic [facility] UNK - Ambulatory Encounter Mormonism Preload LinkLogic [facility] UNK - Ambulatory Encounter Mormonism Preload LinkLogic [facility] UNK - Ambulatory Encounter Mormonism Preload LinkLogic [facility] UNK - Ambulatory Encounter Mormonism Preload LinkLogic [facility] UNK - Ambulatory Encounter Mormonism Preload LinkLogic [facility] UNK - Ambulatory Encounter Mormonism Preload LinkLogic [facility] UNK - Ambulatory Encounter Mormonism Preload LinkLogic [facility] UNK - Ambulatory Encounter Mormonism Preload LinkLogic [facility] UNK - Ambulatory Encounter Mormonism Preload LinkLogic [facility] UNK - Ambulatory Encounter Mormonism Preload LinkLogic [facility] UNK - Ambulatory Encounter Mormonism Preload LinkLogic [facility] UNK - Ambulatory Encounter Mormonism Preload LinkLogic [facility] UNK - Ambulatory Encounter Mormonism Preload LinkLogic [facility] UNK - Ambulatory Encounter Mormonism Preload LinkLogic [facility] UNK - Ambulatory Encounter Mormonism Preload LinkLogic [facility] UNK - Ambulatory Encounter Mormonism Preload LinkLogic [facility] UNK - Ambulatory Encounter Mormonism Preload [facility]Logic [facility] UNK - Ambulatory Encounter Mormonism Preload LinkLogic [facility] UNK - Ambulatory Encounter Mormonism Preload LinkLogic [facility] UNK - Ambulatory Encounter Mormonism Preload LinkLogic [facility] UNK - Ambulatory Encounter Mormonism Preload [facility]Logic [facility] UNK - Ambulatory Encounter Mormonism Preload [facility]ic [facility] UNK - Ambulatory Encounter Mormonism Preload LinkLogic [facility] UNK - Ambulatory Encounter Mormonism Preload LinkLogic [facility] UNK - Ambulatory Encounter Mormonism Preload LinkLogic [facility] UNK - Ambulatory Encounter Mormonism Preload LinkLogic [facility] UNK - Ambulatory Encounter Mormonism Preload LinkLogic [facility] UNK - Ambulatory Encounter Mormonism Preload LinkLogic [facility] UNK - Ambulatory Encounter Mormonism Preload LinkLogic [facility] UNK - Ambulatory Encounter Mormonism Preload LinkLogic [facility] UNK - Ambulatory Encounter Mormonism Preload LinkLogic [facility] UNK - Ambulatory Encounter Mormonism Preload LinkLogic [facility] UNK - Ambulatory Encounter Mormonism Preload LinkLogic [facility] UNK - Ambulatory Encounter Mormonism Preload LinkLogic [facility] UNK - Ambulatory Encounter Mormonism Preload LinkLogic [facility] UNK - Ambulatory Encounter Mormonism Preload LinkLogic [facility] UNK - Ambulatory Encounter Mormonism Preload LinkLogic [facility] UNK - Ambulatory Encounter Mormonism Preload LinkLogic [facility] UNK - Ambulatory Encounter Mormonism Preload LinkLogic [facility] UNK - Ambulatory Encounter Mormonism Preload LinkLogic [facility] UNK - Ambulatory Encounter Mormonism Preload LinkLogic [facility] UNK - Ambulatory Encounter Mormonism Preload LinkLogic [facility] UNK - Ambulatory Encounter Mormonism Preload LinkLogic [facility] UNK - Ambulatory Encounter Mormonism Preload [facility] UNK - Ambulatory Encounter Mormonism Preload [facility] UNK - Ambulatory Encounter Mormonism Preload [facility] UNK - Ambulatory Encounter Mormonism Preload [facility] UNK - Ambulatory Encounter Mormonism Preload [facility] UNK - Ambulatory Encounter Mormonism Preload [facility] UNK - Ambulatory Encounter Mormonism Preload [facility] UNK - Ambulatory Encounter Sharpe Vo Annemarie Vo [facility]Logic [facility] UNK - Ambulatory Encounter Mormonism Preload [facility] UNK - Ambulatory Encounter Mormonism Preload [facility] UNK - Ambulatory Encounter Mormonism Preload [facility] UNK - Ambulatory Encounter Mormonism Preload [facility]ic [facility] UNK - Ambulatory Encounter Mormonism Preload LinkLogic [facility] UNK - Ambulatory Encounter Mormonism Preload LinkLogic [facility] UNK - Ambulatory Encounter Mormonism Preload [facility]Logic [facility] UNK - Ambulatory Encounter Mormonism Preload [facility]Logic [facility] UNK - Ambulatory Encounter Mormonism Preload [facility] UNK - Ambulatory Encounter Mormonism Preload [facility]Logic [facility] UNK - Ambulatory Encounter Mormonism Preload LinkLogic [facility] UNK - Ambulatory Encounter Mormonism Preload LinkLogic [facility] UNK - Ambulatory Encounter Mormonism Preload LinkLogic [facility] UNK - Ambulatory Encounter Mormonism Preload [facility]ic [facility] UNK - Ambulatory Encounter Mormonism Preload [facility]Logic [facility] UNK - Ambulatory Encounter Mormonism Preload [facility]Logic [facility] UNK - Ambulatory Encounter Mormonism Preload LinkLogic [facility] UNK - Ambulatory Encounter Mormonism Preload LinkLogic [facility] UNK - Ambulatory Encounter Mormonism Preload LinkLogic [facility] UNK - Ambulatory Encounter Mormonism Preload [facility]ic [facility] UNK - Ambulatory Encounter Mormonism Preload [facility]Logic [facility] UNK - Ambulatory Encounter Mormonism Preload [facility]Logic [facility] UNK - Ambulatory Encounter Mormonism Preload [facility]Logic [facility] UNK - Ambulatory Encounter Mormonism Preload [facility]Logic [facility] UNK - Ambulatory Encounter Mormonism Preload LinkLogic [facility] UNK - Ambulatory Encounter Mormonism Preload [facility]Logic [facility] UNK - Ambulatory Encounter Mormonism Preload [facility]Logic [facility] UNK - Ambulatory Encounter Mormonism Preload [facility]Logic [facility] UNK - Ambulatory Encounter Mormonism Preload LinkLogic [facility] UNK - Ambulatory Encounter Mormonism Preload LinkLogic [facility] UNK - Ambulatory Encounter Mormonism Preload [facility]Logic [facility] UNK - Ambulatory Encounter Mormonism Preload LinkLogic [facility] UNK - Ambulatory Encounter Mormonism Preload LinkLogic [facility] UNK - Ambulatory Encounter Mormonism Preload LinkLogic [facility] UNK - Ambulatory Encounter Mormonism Preload LinkLogic [facility] UNK - Ambulatory Encounter Mormonism Preload LinkLogic [facility] UNK - Ambulatory Encounter Mormonism Preload LinkLogic [facility] UNK - Ambulatory Encounter Mormonism Preload [facility]Logic [facility] UNK - Ambulatory Encounter Mormonism Preload LinkLogic [facility] UNK - Ambulatory Encounter Mormonism Preload LinkLogic [facility] UNK - Ambulatory Encounter Mormonism Preload LinkLogic [facility] UNK - [facility] - [facility] Sharpe Gulshan BarbozaSharpe [facility] UNK - Ambulatory Encounter [facility] Shar[facility] Vo Sharpe [facility] UNK - Ambulatory Encounter Gill Batistaen [facility] UNK - Ambulatory Encounter [facility] - [facility] Encounter Annemarie Gaffney Vanessa CisnerosAdherfaheem [facility] UNK - Ambulatory Encounter Gill Orozco Davialice Orozco alice [facility] UNK - Ambulatory Encounter Gill Orozco Davialice Orozco Noy Gaffney Honey Gutierrez [facility] COPDNICOTINE ADDICTIONSARCOIDOSISHYPERTENSIONMUSCLE SPASM - Ambulatory Encounter [facility]esto [facility] Date Observation Value Provider oxygen [...] " respiratory rate E&M 18 /min [facility] " pulse rate E&M 99 /min Jamarvidhyarosalvajose j Yazidismjaki Delgado " temperature site [facility] " temperature E&M 98.0 [degF] [facility] " weight E&M 326.20 lbs. [facility] " weight in kilograms E&M 148.27 kg [facility] " height in centimeters E&M 154.94 cm [facility] " height E&M 61 [in_i] [facility]caHenry [facility] Hospitalirez method used to obtain blood pressure automatic [facility] " Blood Pressure Position 01 sitting [facility] " blood pressure, site #1 left arm [facility] " oxygen saturation, oximetry 98 % [facility] " blood pressure, diastolic 84 mm[Hg] [facility] " blood pressure, systolic 135 mm[Hg] [facility] " respiratory rate E&M 18 /min [facility] " pulse rate E&M 98 /min [facility]irez " temperature site oral [facility] " temperature E&M 98.4 [degF] [facility]irez " weight E&M 321.80 lbs. [facility] " weight in kilograms E&M 146.27 kg [facility] " height in centimeters E&M 154.94 cm [facility]ca[facility] Hospitalirez " height E&M 61 [in_i] Francesca Orozco [...] weight in kilograms E&M 142 kg Stephanie Chalo " height E&M 61 [...] " blood pressure, systolic 123 mm[Hg] Stephanie Isaebl " respiratory rate E&M 17 /min Stephanie [...] Winslow " Blood Pressure Position 01 sitting oLly Winslow " blood pressure, site #1 right [...] High blood glucose, random 256 mg/dL Jamarlinda Yazidism [facility] " hemoglobin A1C, blood, as [...] TABLET BY MOUTH TWICE DAILY Tiara Christianson [facility] MUCINEX 600 MG ORAL TABLET EXTENDED RELEASE [...] TAKE 1 TABLET BY MOUTH ONCE DAILY [facility] FREESTYLE LANCETS Use as directed to test blood [facility] ICD CODE E11.9 FREESTYLE LITE TEST IN VITRO STRIP Use as directed to test blood sugar once [facility] ICD CODE E11.9 FREESTYLE FREEDOM LITE W/DEVICE KIT Use as directed to test blood sugar once daily [facility] ICD CODE E11.9 BD ULTRA-FINE MICRO PEN [...] Times a Day to administer insulin [facility] Updated directions IPRATROPIUM/ ALBUTER EMI USE 1 AMPULE IN NEBULIZER EVERY 4 HOURS NEEDED FOR WHEEZING [facility] AZITHROMYCIN 250 MG ORAL TABLET 2 tablets [...] E&M Single. Not homeless. Born in [facility]. City: [facility]. State: [place]. Not employed. Retired. Highest education level: high school graduate. Gender of partner(s): male. Sheryl Odonnell " social history reviewed E&M reviewed today Sheryl Charles Odonnell " assessment of health literacy ([facility] 2014 Standards, 3C10) Adequate Sheryl [...] E&M Single. Not homeless. Born in [facility]. City: [facility]. State: [place]. Not employed. Retired. Highest education level: high school graduate. Gender of partner(s): male. Francesca Diana " social history reviewed E&M reviewed today Francesca Diana " assessment of health literacy ([facility] 2014 Standards, 3C10) Adequate Francesca Diana " passive cigarette smoke exposure Yes Francesca Diana " smoking status former smoker Francescalloyd Diana " Exercise Program Referral T Francesca Diana " Weight Management Counseling Provided T Francesca Diana " Nutrition intervention T Francesca Diana time of call 07/18/2019 2:19 PM Eusebia Gagnon social history E&M Single. Not homeless. Born in [facility]. City: [facility]. [place] Not employed. Retired. Highest education level: high school graduate. Gender of partner(s): male. Francesca Diana " social history reviewed E&M reviewed today Francesca Diana " assessment of health literacy ([facility] 2014 Standards, 3C10) Adequate Francesca [...] E&M Single. Not homeless. Born in [facility]. City: [facility]. [place]. Not employed. Retired. Highest education level: high school graduate. Gender of partner(s): male. Nupur Chong " social history reviewed E&M reviewed today Nupur Chong " assessment of health literacy ([facility] 2014 Standards, 3C10) Adequate Nupur Chong " passive cigarette smoke exposure Yes Nupur Chong " smoking status former smoker Nupur Chong time of call 04/02/2019 8:30 AM Daphney Espitia drug use, illicit Never Stephanie Chalo " alcohol use Currently Stephanie Chalo " social history E&M Single. Not homeless. Born in [facility]. City: [facility]. [place] Not employed. Retired. Highest education level: high school graduate. Gender of partner(s): male. Stephanie Chalo " social history reviewed E&M reviewed today Stephanie Chalo " assessment of health literacy ([facility] 2014 Standards, 3C10) Adequate Stephanie Chalo " passive cigarette smoke exposure Yes Stephanie Chalo " smoking status former smoker Stephanie Isabel " Exercise Program Referral T Stephanie Isabel " Weight Management Counseling Provided T Stephanie Isabel " Nutrition intervention T Stephanie Isabel sunscreen use No Chukwuemeka Yazidism Nnabuife " Exercise Program Referral T Gautamwlinda Yazidism Nn[place]ife " Weight Management Counseling Provided T Gautamwuekathya Yazidism Nn[place]ife " Nutrition intervention T Jamarkwuemejose j Yazidism Nn[facility]ife " drug use, illicit Never Nupur Chong " alcohol use Currently Nupur Chong " social history E&M Single. Not homeless. Born in [facility]. City: [facility]. [place] Not employed. Retired. Highest education level: high school graduate. Gender of partner(s): male. Nupur Chong " social history reviewed E&M reviewed today Nupur Chong " assessment of health literacy ([facility] 2014 Standards, 3C10) Adequate Nupur Chong " passive cigarette smoke exposure No Nupur Chong " smoking status former smoker Nupur Chong time of call 01/09/2019 11:02 AM Eusebai Gagnon time of call 01/08/2019 8:58 AM Alayna Gu Exercise Program Referral T Satinder Harman " Weight Management Counseling Provided T Satinder Harman " Nutrition intervention T Satinder Harman " drug use, illicit Never Nupur Chong " alcohol use Currently Nupur Chong " social history E&M Single. Not homeless. Born in [facility]. City: [facility]. [place] Not employed. Retired. Highest education level: high school graduate. Gender of partner(s): male. Nupur Chong " social history reviewed E&M reviewed today Nupur Chong " assessment of health literacy ([facility] 2014 Standards, 3C10) Adequate Nupur Chong " passive cigarette smoke exposure No Nupur Chong " smoking status former smoker Nupur Chong time of call 11/21/2018 9:45 AM Joaquim Engel drug use, illicit Never Stephanie Chalo " alcohol use Currently Stephanie Chalo " social history E&M Single. Not homeless. Born in [facility]. City: [facility]. [place] Not employed. Retired. Highest education level: high school graduate. Gender of partner(s): male. Stephanie Chalo " social history reviewed E&M reviewed today Stephanie Isabel " assessment of health literacy ([facility] 2014 Standards, 3C10) Adequate Stephanie Chalo " is there any chance that you could be ? No Stehpanie Chalo " passive cigarette smoke exposure No [...] E&M Single. Not homeless. Born in [facility]. City: [facility]. [place] Not [place]. Retired. Highest education level: high school graduate. Gender of partner(s): male. Hafsa Will " social history reviewed E&M reviewed today Hafsa Will " assessment of health literacy ([facility] 2014 Standards, 3C10) Adequate Hafsa [...] E&M Single. Not homeless. Born in [facility]. City: [facility]. [place] Not employed. Retired. Highest education level: high school graduate. Gender of partner(s): male. Violette Pool " social history reviewed E&M reviewed today Violette Pool " assessment of health literacy ([facility] 2014 Standards, 3C10) Adequate Violette Pool " passive cigarette smoke exposure No Violette Pool " smoking status former smoker Violette Pool alcohol use Currently Hafsa Will " drug use, illicit Never Hafsa Will " social history E&M Single. Not homeless. Born in [facility]. City: [facility]. [place] Not [place]. Retired. Highest education level: high school graduate. Gender of partner(s): male. Hafsa Will " social history reviewed E&M reviewed today Hafsa Will " assessment of health literacy ([facility] 2014 Standards, 3C10) Adequate Hafsa Will " passive cigarette smoke exposure No Hafsa Will " smoking status former smoker Hafsa Wlil " Exercise Program Referral T Hafsa Will " Weight Management Counseling Provided T Hafsa Will " Nutrition intervention T Hafsa Will drug use, illicit Never Priya Jerad " alcohol use Currently Priya Jerad " social history E&M Single. Not homeless. Born in [facility]. City: [facility]. [place] Not [place]. Retired. Highest education level: high school graduate. Gender of partner(s): male. Priya Jerad " social history reviewed E&M reviewed today Priya Jerad " assessment of health literacy ([facility] 2014 Standards, 3C10) Adequate Rpiya Jerad " is there any chance that [...] E&M Single. Not homeless. Born in [facility]. City: [facility]. [place] Not [place]. Retired. Highest education level: high school graduate. Gender of partner(s): male. Alayna Chapman " social history reviewed E&M reviewed today Alayna Chapman " assessment of health literacy ([facility] 2014 Standards, 3C10) Adequate Alayna Chapman " passive cigarette smoke exposure Yes Alayna Chapman " smoking status former smoker Alayna Chapman time of call 04/24/2018 11:41 AM Gayle Serrano drug use, illicit Never Stephanie Isabel " alcohol use Currently Stephanie Isabel " social history E&M Single. Not homeless. Born in [facility]. City: [facility]. [place] Not employed. Retired. Highest education level: high school graduate. Gender of partner(s): male. Stephanie Isabel " social history reviewed E&M reviewed today Stephanie Isabel " assessment of health literacy ([facility] 2014 Standards, 3C10) Adequate Stephanie [...] E&M Single. Not homeless. Born in [facility]. City: [facility]. [place] Not [place]. Retired. Highest education level: high school graduate. Gender of partner(s): male. Alayna Chapman " social history reviewed E&M reviewed today Alayna Chapman " assessment of health literacy ([facility] 2014 Standards, 3C10) Adequate Alayna Chapman " passive cigarette smoke exposure No Alayna Chapman " smoking status former smoker Alayna Chapman " Exercise Program Referral T Alayna Chapman " Weight Management Counseling Provided T Alayna Chapman " Nutrition intervention T Alayna Chapman Exercise Program Referral T Edward Boyceuinaisr " Weight Management Counseling Provided T Edward Roa Nnabuife " Nutrition intervention T Edward Roa Nnabuife " alcohol use Currently Alayna Chapman " social history E&M Single. Not homeless. Born in [facility]. City: [facility]. [place] Not [place]. Retired. Highest education level: high school graduate. Gender of partner(s): male. Alayna Chapman " social history reviewed E&M reviewed today Alayna Chapman " assessment of health literacy ([facility] 2014 Standards, 3C10) Adequate Alayna Chapman " passive cigarette smoke exposure No Alayna Chapman " smoking status former smoker Alayna Chapman " assessment of health literacy ([facility] 2014 Standards, 3C10) Adequate Alayna Chapman " drug use, illicit Never Alayna Chapman " alcohol use Currently Alayna Chapman " social history E&M Single. Not homeless. Born in [facility]. City: [facility]. [place]. Retired. Highest education level: high [...] E&M Single. Not homeless. Born in [facility]. City: [facility]. [place]. Retired. Highest education level: high [...] E&M Single. Not homeless. Born in [facility]. City: [facility]. [place]. Retired. Highest education level: high [...] E&M Single. Not homeless. Born in [facility]. City: [facility]. [place]. Retired. Highest education level: high school graduate. Gender of partner(s): male. Edward Boyceuife " social history reviewed E&M reviewed today Edward Roa Nnabuife " drug use, illicit Never Nupur Chong " alcohol use Currently Nupur Chong " passive cigarette smoke exposure Yes Nupur Chong " smoking status former smoker Nupur Chong time of call 09/02/2017 9:48 AM [facility] No Edward Roa Nnabuife " social history E&M Single. Not homeless. Born in [facility]. City: [facility]. [place]. Retired. Highest education level: high [...] E&M Single. Not homeless. Born in [facility]. City: [facility]. [place]. Retired. Highest education level: high [...] E&M Single. Not homeless. Born in [facility]. City: [facility]. [place]. Retired. Highest education level: high [...] " passive cigarette smoke exposure Yes Colleen Paec " smoking status current every day smoker Colleen Pace time of call 04/13/2013 4:36 PM Krystle Diamond social history reviewed E&M reviewed today Honeytejas Gutierrez " social history E&M Single. Not homeless. Born in [facility]. City: [facility]. [place]. Retired. Highest education level: high [...] Anxiety Disorder Questionnaire - Question 1 3 Sherylsheryl Odonnell assessment of judgment and insight E&M intact Edward Whiteabui " mental status examination: orientation E&M oriented to time, place, and person [facility] " assessment of mood and affect E&M no depression, anxiety, or agitation [facility] " Generalized Anxiety Disorder Questionnaire - Question 2 0 Francesca Diana " Generalized Anxiety Disorder Questionnaire - Question 1 0 Francesca Diana assessment of judgment and insight E&M intact Edward Whiteabui " mental status examination: orientation E&M oriented to time, place, and person [facility] [place] " assessment of mood and affect E&M no depression, anxiety, or agitation [facility] [place] " Generalized Anxiety Disorder Questionnaire - Question 2 0 Francesca Diana " Generalized Anxiety Disorder Questionnaire - Question 1 0 Francesca Diana assessment of judgment and insight E&M intact Edward Yazidism Nnabui " assessment of mood and affect E&M no depression, anxiety, or agitation [facility] [place] " mental status examination: orientation E&M oriented to time, place, and person Chuvidhyalinda Yazidism [place] " Generalized Anxiety Disorder Questionnaire - Question 2 0 Nupur Chong " Generalized Anxiety Disorder Questionnaire - Question 1 0 Nupur Chong assessment of judgment and insight E&M intact Edward Yazidism [place] " mental status examination: orientation E&M oriented to time, place, and person Chukwlinda Y[facility]ism [facility] " assessment of mood and affect E&M no depression, anxiety, or agitation [facility] " Generalized Anxiety Disorder Questionnaire - Question 2 0 Stephanie Isabel " Generalized Anxiety Disorder Questionnaire - Question 1 0 Stephanie Isabel assessment of judgment and insight E&M intact Edward Yazidism Nnabui " mental status examination: orientation E&M oriented to time, place, and person [facility] " assessment of mood and affect E&M anxious, depressed mood [facility] " Generalized Anxiety Disorder Questionnaire - [...] judgment and insight E&M intact [facility] " mental status examination: orientation E&M oriented to time, place, and person [facility] " assessment of mood and affect E&M anxious, depressed mood [facility] " Generalized Anxiety Disorder Questionnaire - Question 2 0 Stephanie Isabel " Generalized Anxiety Disorder Questionnaire - Question 1 0 Stephanie Isabel assessment of judgment and insight E&M intact [facility] " mental status examination: orientation E&M oriented to time, place, and person [facility] " assessment of mood and affect E&M anxious, depressed mood [facility] Whiteabuife mental status examination: orientation [...] oriented to time, place, and person Chukwlinda Yazidism [place] " assessment of mood and affect E&M anxious, depressed mood Chukwlinda Yazidism N[place] assessment of judgment and insight E&M intact Chukwfabiánmeka Yazidism [place] " mental status examination: orientation E&M oriented to time, place, and person Chukwlinda Yazidism [place] " assessment of mood and affect E&M anxious, depressed mood Chukwfabiánmejose j Yazidism [place] " Generalized Anxiety Disorder Questionnaire - Question 2 0 Priya Mars " Generalized Anxiety Disorder Questionnaire - Question 1 0 Priya Mars assessment of judgment and insight E&M intact Chukwfabiánmejose j Yazidism [place] " mental status examination: orientation E&M oriented to time, place, and person Chukwlinda Yazidism [place] " assessment of mood and affect E&M anxious, depressed mood [facility]idism [place] " Generalized Anxiety Disorder Questionnaire - Question 2 0 Alayna Chapman " Generalized Anxiety Disorder Questionnaire - Question 1 0 Alayna Chapman assessment of judgment and insight E&M intact Edward Magañaian Nnabuife " mental status examination: orientation E&M oriented to time, place, and person Chukwlinda Yazidism [place] " assessment of mood and affect E&M anxious, depressed mood [facility]idism [place] " Generalized Anxiety Disorder Questionnaire - Question 2 0 Stephanie Isabel " Generalized Anxiety Disorder Questionnaire - Question 1 0 Stephanie Isabel assessment of judgment and insight E&M intact Chuvidhyawfabiánmejose j Yazidism [place] " mental status examination: orientation E&M oriented to time, place, and person Chukwfabiánmejose j Yazidism [place] " assessment of mood and affect E&M anxious, depressed mood [facility]emejose j [facility] " Generalized Anxiety Disorder Questionnaire - Question 2 0 Alayna Chapman " Generalized Anxiety Disorder Questionnaire - Question 1 0 Alaynataye Chapman assessment of judgment and insight E&M intact Edward Delgado " mental status examination: orientation E&M oriented to time, place, and person [facility] " assessment of mood and affect E&M anxious, depressed mood [facility] " Generalized Anxiety Disorder Questionnaire - Question 2 0 Alayna Chapman " Generalized Anxiety Disorder Questionnaire - Question 1 0 Alayna Chapman assessment of judgment and insight E&M intact Edward Delgado " mental status examination: orientation E&M oriented to time, place, and person [facility] " assessment of mood and affect E&M anxious, depressed mood [facility] " Generalized Anxiety Disorder Questionnaire - Question [...] No Toma Woods " hallucinations none Toma Mccllelandez assessment of mood and affect E&M anxious, depressed mood [facility] [place] " assessment of judgment and insight E&M intact [facility] [place] " mental status examination: orientation E&M oriented to time, place, and person [facility] [place] " If any problems checked, how difficult [...] assessment of judgment and insight E&M intact [facility] [place] " mental status examination: orientation E&M oriented to time, place, and person [facility] " assessment of mood and affect E&M no depression, anxiety, or agitation [facility] [place] " Generalized Anxiety Disorder Questionnaire - Question 2 0 Stephanie Isabel " Generalized Anxiety Disorder Questionnaire - Question 1 0 Stephanie Isabel Generalized Anxiety Disorder Questionnaire - Question 2 0 Nupur Chong " Generalized Anxiety Disorder Questionnaire - Question 1 0 Nupur Chong mental status examination: recall E&M intact for recent and remote events [facility] " assessment of judgment and insight E&M intact [facility] [place] " mental status examination: orientation E&M oriented to time, place, and person [facility] " assessment of mood and affect E&M no depression, anxiety, or agitation [facility] " Generalized Anxiety Disorder Questionnaire - Question [...] E&M intact for recent and remote events [facility] " mental status examination: orientation E&M oriented to time, place, and person [facility] [place] " assessment of judgment and insight E&M intact [facility] [place] " assessment of mood and affect E&M no depression, anxiety, or agitation [facility] [place] " Generalized Anxiety Disorder Questionnaire - Question [...] party ID Bryan Medicare HMO Medicare HMO [id number] ADVANCE DIRECTIVES No Information Available TREATMENT PLAN [...] - - Est Patient Exp Problem - 29183 Est Patient Exp Problem - 42763 Est Patient Exp Problem - 04040 Finger Stick Glucose Est Patient Exp Problem - 00604 Est Patient Exp Problem - 35335 Est Patient Detailed - 47838 New Patient Intermediate Opth - 44095 Finger Stick Glucose Ear Irrigation Est Patient Exp Problem - 37711 Est Patient Exp Problem - 70317 Retinal Screening Est Patient Well Exam (40 - 64 Yrs) - 65725 Est Patient Detailed - 87549 Est Patient Exp Problem - 57369 Est Patient Exp Problem - 46337 New Patient Comprehensive - 74291 Glucose Stick Est Patient Exp Problem - 79534 Glucose Stick Est Patient Exp Problem - 10463 Prescription Assistance (Non-HIV) Glucose Stick Est Patient Exp Problem - 34902 Endocrinology - Adult - [facility] HEMOGLOBIN A1C - In House Est Patient Exp Problem - 32581 Est Patient Detailed - 72190 Est Patient Exp Problem - 28101 Est Patient Detailed - 29351 IB 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 (no medical) - 83152 Integrated Behavioral Health Assessment (IBH) Est Patient Exp Problem - 43421 Est Patient Detailed - 04107 Ofc Vst, Est Level V Est Patient Exp Problem - 62698 Est Patient Exp Problem - 22624 Ofc Vst, Est Level IV Est Patient Exp Problem - 24878 Ofc Vst, Est Level V Est Patient Exp Problem - 53184 Est Patient Detailed - 50414 Est Patient Detailed - 06505 ALBUTEROL INHAL ADMIN THRU DME 1MG Est Patient Detailed - 17423 Est Patient Exp Problem - 02810 Est Patient Exp Problem - 36002 Ear Irrigation Est Patient Exp Problem - 98706 Ofc Vst, Est Level III Est Patient Exp Problem - 44715 HISTORY OF PROCEDURES Procedure Date Procedure Name Provider Procedure Notes Status Finger Stick Glucose Gill Villafuerte completed New Patient Intermediate Opt - 55830 Satinder Harman completed Finger Stick Glucose Satinder Harman completed Ear Irrigation Satinder Harman completed Glucose Stick Gill Vilalfuerte completed Glucose Stick Satinder Harman completed Glucose Stick Gill Villafuerte completed HEMOGLOBIN A1C - In House Comfort Trevino completed [facility] 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
--- OUTSIDE RECORDS SUMMARY | 2019-09-25 17:54 | XMS REPORT ---
Author Author Admin, [employer] Unknown Address Unknown Phone Unavailable PROBLEMS [...] Roa Nnabuife [facility] Mood Disorder, NOS active Toma Woods [facility] Depression, major [facility] N[place] COPD with exacerbation active Jamarvidhyalinda Roa Nnabuife BMI 50.0-59.9 completed - Tiny Vazquez Mckeon Chronic bronchitis [facility] Breast abnormal findings [facility] Otitis media, acute completed - Titi Kaitlynn MORBID OBESITY active Edwin Umana Candidal vaginitis completed - Titi Kaitlynn SLEEP APNEA active Comfort Trevino CHF active Comfort Trevino CHRONIC OBSTRUCTIVE PULMONARY DISEASE, ACUTE EXACERBATION completed - Comfort Trevino LOW BACK PAIN active Thea Puppala DEPENDENT EDEMA, LEGS active Sharpe Gulshan HEARING DEFICIT active Baljinderniesha Isabel BLURRED VISION active Baljinderniesha Isabel EAR PAIN, RIGHT completed - Titi Kaitlynn MUSCLE SPASM completed - Titi Kaitlynn HYPERTENSION active Gill Tomlinsondasonia SARCOIDOSIS active Gill Villafuerte NICOTINE ADDICTION active Sharpe Vo COPD active Sharpe Vo ENCOUNTERS Date Type Provider Location Encounter Diagnosis - Ambulatory Encounter Kimberly Ko [facility] Services Contact Center UNK - Ambulatory Encounter Kimberly Jorgensen [facility] UNK - Ambulatory Encounter Fax Status LinkLogic [facility] Services UNK - Ambulatory Encounter [facility] UNK - Ambulatory Encounter Fax Status [facility] UNK - Ambulatory Encounter Gill Magañaian Nnabuife Edward Buddhist Nnabuife [facility] UNK - Ambulatory Encounter Kimberly Jameel [facility] UNK - Ambulatory Encounter Kimberly Leon Buddhist Nnabuife Edward Buddhist Nnabuife Ofelia Ko [facility] UNK - Ambulatory En[facility] UNK - Ambulatory Encounter Edward Buddhist Nnabuife Edward Buddhist Nnabuife [facility] UNK - Ambulatory Encounter Edward Buddhist Nnabuife Gautamwlinda Buddhist Nnabuife [facility] UNK - Ambulatory Encounter Chuodilia Buddhist Nnabuife Gautamwlinda Buddhist Nnabuife [facility] UNK - Ambulatory Encounter Gill Leon Buddhist Nnabuife Edward Buddhist Nnabuife Sheryl Odonnell [facility] Constipation, drug induced - Ambulatory Encounter Edward Buddhist Nnabuife Edward Buddhist Nnabuife Bronson Marroquin MedAdherence, [facility] UNK - Ambulatory Encounter Edward Buddhist Nnabuife Gautamwuekathya Roa Nnabuife Danay Lanlgey MedAdherence [facility] Health Services UNK - Ambulatory Encounter Violette Salazar [facility] UNK - Ambulatory Encounter Edward Magañaian Nnabuinasir Leon Buddhist Nnabuife [facility] UNK - Ambulatory Encounter LSJ Lab Support Desktop LinkLogic Gautamwlinda Buddhist Nnabuife Edward Buddhist Nnabuife [facility] UNK - Ambulatory Encounter [facility] UNK - Ambulatory Encounter [facility]K - Ambulatory Encounter [facility] UNK - Ambulatory Encounter Edward Buddhist Nnabuife Edward Buddhist Nnabuife [facility] UNK - Ambulatory Encounter Chuodilia Buddhist Nnabuife Gautamwlinda Buddhist Nnabuife [facility] UNK - Ambulatory Encounter Edward Buddhist Nnabuife Gautamwlinda Buddhist Nnabuife [facility] UNK - Ambulatory Encounter Satinder Leon Buddhist Nnabuife Edward Buddhist Nnabuife Francesca Diana [facility] Anjali, internal - Ambulatory Encounter Comfort Marroquin MedAdherence, [facility] Health Services UNK - Ambulatory Encounter Comfort Langley MedAdherence [facility] Services UNK - Ambulatory Encounter Kimberly Delaney UNK - Ambulatory Encounter Gill Marroquin MedAdherence, [facility] Services UNK - Ambulatory Encounter [place]wuem[place] Buddhist Nnabuife [place]wu[place] Buddhist Nnabuife [facility] UNK - Ambulatory Encounter Ch[place]wuem[place] Buddhist Nnabuife [place]wu[place] Buddhist Nnabuife [facility] UNK - Ambulatory Encounter Gill Roldankwuemejose j Buddhist Nnabuife Jamarkwuemejose j Buddhist Nnabuife Francesca Diana [facility] Practice UNK - Ambulatory Encounter Comfort Ellsworth MedAdherence, [facility] UNK - Ambulatory Encounter Comfort Marroquin MedAdherence, [facility] Services UNK - Ambulatory Encounter Edward Buddhist Nnabuife Jamarkwuemeka Buddhist Nnabuife [facility] UNK - Ambulatory Encounter Comfort Hernandez MedAdherence [facility] Services UNK - Ambulatory Encounter Fax Status LinkLogic [facility] UNK - Ambulatory Encounter Fax Status LinkLogic [facility] Services UNK - Ambulatory Encounter Fax Status [facility] UNK - Ambulatory Encounter [place]wuem[place] Buddhist Nnabuife [place] Buddhist Nnabuife [facility] UNK - Ambulatory Encounter Satinder Leon Buddhist Nnabuife Edward Buddhist Nnabuife [facility] Hypokalemia, mild - Ambulatory Encounter Edward Buddhist Nnabuife Gautamwlinda Buddhist Nnabuife [facility] UNK - Ambulatory Encounter LSJ Lab Support Desktop LinkLogic Jamarkwlinda Buddhist Nnabuife Gautamwlinda Buddhist Nnabuife [facility] UNK - Ambulatory Encounter [facility] - Ambulatory Encounter Fax Status LinkLogic [facility] Health Services UNK - Ambulatory Encounter [facility] UNK - Ambulatory Encounter Fax Status [facility] UNK - Ambulatory Encounter Edward Buddhist Nnabuife Gatuamwlinda Buddhist Nnabuife [facility] UNK - Ambulatory Encounter Gautamwlinda Buddhist Nnabuife Gautamwlinda Buddhist Nnabuife [facility] UNK - Ambulatory Encounter Chuvidhyawlinda Buddhist Nnabuife Gautamwlinda Buddhist Nnabuife [facility] UNK - Ambulatory Encounter Satinder Leon Buddhist Nnabuife Gautamwlinda Buddhist Nnabuife Sheryl Odonnell [facility] UNK - Ambulatory Encounter Comfort Pedersen MedAdherence [facility] UNK - Ambulatory Encounter Comfort Christianson MedAdherence [facility] UNK - Ambulatory Encounter Tiara Christianson MedAdherence [facility] UNK - Ambulatory Encounter Edward Whiteabjaimie Whiteabuife LinkLog [facility] UNK - Ambulatory Encounter Osiris Gordon [facility] UNK - Ambulatory Encounter Edward Whiteabjaimie Roa Nnabuife [facility] UNK - Ambulatory Encounter Comfort Christianson MedAdherence [facility] UNK - Ambulatory Encounter Edward Whiteabuife Edward Magañaian Nnabuife [facility] UNK - Ambulatory Encounter Edward Whiteabuinasir Magañaian Nnabuife [facility] UNK - Ambulatory Encounter Edward Whiteabuife Edward Roa Nnabuife [facility] UNK - Ambulatory Encounter Satinder Whiteabuife Edward Magañaian Nnabuife [facility] Chronic pain syndrome - Ambulatory Encounter Edward Whiteabuife Edward Buddhist Nnabuife [facility] UNK - Ambulatory Encounter LSJ Lab Support Desktop LinkLogic Edward Roa Nnabuife [place]wu[place] Buddhist Nnabuife [facility] UNK - Ambulatory Encounter Abisaijose j Buddhist Nnabuife Chukwallanjose j Buddhist Nnabuife [facility] UNK - Ambulatory Encounter Abisaijose j Buddhist Nnabuife Jamarkwuejsoe j Buddhist Nnabuife [facility] UNK - Ambulatory Encounter Comfort Florezwuemejose j Buddhist Nnabuife Jamarkwuemejose j Buddhist Nnabuife Osorio Benítez [facility] Well woman examCerumen impaction, bilateral - Ambulatory Encounter Satinder Christianson MedAdherence [facility] UNK - Ambulatory Encounter Satinder Christianson MedAdherence Sh[facility]imbo [facility] [place] UNK - Ambulatory Encounter Satinder Christianson MedAdherence Gautamwuekathya Magañaian Nnabuife Gautamwuekathya Roa Nnabuife Eusebia Gagnon [facility] UNK - Ambulatory Encounter Satinder Christianson MedAdherence [facility] UNK - Ambulatory Encounter Tiara Christianson MedAdherence Alayna Gu [facility] UNK - Ambulatory Encounter Edward Buddhist Nnabuife Gautamwlinda Buddhist Nnabuife LinkLogic [facility] UNK - Ambulatory Encounter Edward Buddhist Nnabuife Gautamwuekathya Buddhist Nnabuife LinkLogic [facility] UNK - Ambulatory Encounter Satinder Christianson MedAdherence [facility] UNK - Ambulatory Encounter Satinder Harman LinkLogic [facility] UNK - Ambulatory Encounter Fax Status LinkLogic [facility] Health Services UNK - Ambulatory Encounter Fax Status LinkLogic [facility] Health Services UNK - Ambulatory Encounter Fax Status LinkLogic [facility] Health Services UNK - Ambulatory Encounter Fax Status LinkLogic [facility] Health Services UNK - Ambulatory Encounter Fax Status LinkLogic [facility] Health Services UNK - Ambulatory Encounter [facility] UNK - Ambulatory Encounter Satinder Montemayor [facility] UNK - Ambulatory Encounter Tiara Christianson MedAdherence Satinder Engel [facility] Services Contact Center UNK - Ambulatory Encounter Kimberly Whiteabuife Edward Whiteabjaimie [facility] Services Contact Center UNK - Ambulatory Encounter Satinder Christianson MedAdherence [facility] UNK - Ambulatory Encounter Satinder Harman LinkLogic [facility] UNK - Ambulatory Encounter Fax Status [facility] UNK - Ambulatory Encounter Lo Christianson MedAdherence [facility] UNK - Ambulatory Encounter Edward Whiteabuife Edward Roa Nnabuife [facility] UNK - Ambulatory Encounter Edward Whiteabuife Gautamwuemejose j Buddhist Nnabuife LinkLogic [facility] UNK - Ambulatory Encounter Abisaijose j Buddhist Nnabuife Gautamwallanjose j Buddhist Nnabuife [facility] UNK - Ambulatory Encounter Abisaijose j Buddhist Nnabuinasir Baronejose j Buddhist Nnabuife [facility] UNK - Ambulatory Encounter Abisaijose j Buddhist Nnabuife Gautamwlinda Buddhist Nnabuife [facility] UNK - Ambulatory Encounter Lo Roldankwuemejose j Roa Nnabuife Gautamwuemejose j Buddhist Nnabuife [facility] BMI 60.0-69.9, adultBMI 50.0-59.9 - Ambulatory Encounter Alayna Nava [facility] Health Services UNK - Ambulatory Encounter Kayla Ruel [facility] UNK - Ambulatory Encounter Kayla Ruel [facility] UNK - Ambulatory Encounter Edward Whiteabuinasir Florezwlinda Buddhist Nnabuife Kayla Lipscomb [facility] UNK - Ambulatory Encounter [facility]atinder [facility] Kayla Roldankwuemejose j Whiteabuife Gautamwuekathya Buddhist Nnabuife Jaden Reich [facility] UNK - Ambulatory Encounter Fax Status LinkLogic [facility] Health Services UNK - Ambulatory Encounter [facility] UNK - Ambulatory Encounter Fax Status LinkLogic [facility] Health Services UNK - Ambulatory Encounter Fax [facility] UNK - Ambulatory Encounter Bhavya Pedersen MedAdherfaheem Elyace Ron [facility] Services Contact Center UNK - Ambulatory Encounter Edward Buddhist Nnabuinasir Leon Buddhist Nnabuife [facility] Practice UNK - Ambulatory Encounter Chuodilia Buddhist Nnabuife Edward Buddhist Nnabuife [facility] Practice UNK - Ambulatory Encounter Edward Whiteabuinasir Florezwlinda Magañaian Nnabuife [facility] UNK - Ambulatory Encounter Comfort Roa Nnabuife Edward Roa Nnabuife Hafsa Will [facility] Dyspnea at restCHF exacerbation - Ambulatory Encounter Tiny Vazquez Mkceon Tiny Vazquez Mckeon [facility] UNK - Ambulatory Encounter Tiny Vazquez Mckeon Tiny Vazquez Mckeon [facility] BMI 50.0-59.9BMI 60.0-69.9, adult - Ambulatory Encounter Kayla Lipscomb [facility] Practice UNK - Ambulatory Encounter Satinder CisnerosAdherfaheem Potts [facility] Services Contact Center UNK - Ambulatory Encounter Violette Pool Kayla Lipscomb [facility] UNK - Ambulatory Encounter Edward Roa Nnabuife Edward Roa Nnabuife [facility] UNK - Ambulatory Encounter Chukwlinda Buddhist Nnabuife Chukwfabiánmejose j Buddhist Nnabuife [facility] UNK - Ambulatory Encounter Chukwlinda Buddhist Nnabuife Chukwuemejose j Buddhist Nnabuife [facility] UNK - Ambulatory Encounter Chukwlinda Buddhist Nnabuife Chukwuemejose j Buddhist Nnabuife [facility] UNK - Ambulatory Encounter Chukwfabiánmejose j Buddhist Nnabuife Chukwuemejose j Buddhist Nnabuife [facility] UNK - Ambulatory Encounter Gill Roldankwuemejose j Buddhist Nnabuife Chukwuemejose j Buddhist Nnabuife Violette Yuri Will [facility] Acute upper respiratory infection - Ambulatory Encounter Bhavya [facility]ersen [facility] - Ambulatory Encounter Satinder Burrisberg [facility] UNK - Ambulatory Encounter Bhavya Pedersen [facility] Services Contact Center UNK - Ambulatory Encounter Comfort Trevino [facility] UNK - Ambulatory Encounter Norma Ibarra [facility] Health Services UNK - Ambulatory Encounter Fax Status [facility] UNK - Ambulatory Encounter Fax Status [facility] UNK - Ambulatory Encounter Fax Status [facility] UNK - Ambulatory Encounter Alayna Chapman [facility] UNK - Ambulatory Encounter Chukwlinda Buddhist Nnabuife Edward Buddhist Nnabuife [facility] UNK - Ambulatory Encounter Chukwlinda Buddhist Nnabuife Chuvidhyawlinda Buddhist Nnabuife [facility] UNK - Ambulatory Encounter Chukwlinda Buddhist Nnabuife Chuodilia Buddhist Nnabuife [facility] UNK - Ambulatory Encounter Satinder Leon Buddhist Nnabuife Chuodilia Buddhist Nnabuife Priya Mars [facility] UNK - Ambulatory Encounter Parris Oleary [facility] UNK - Ambulatory Encounter Chukkavin Buddhist Nnabuife Edward Buddhist Nnabuife LinkLogic [facility] UNK - Ambulatory Encounter Bhavya Leon Buddhist Nnabuife Edward Buddhist Nnabuife Raysa Potts [facility] Health Services Contact Center UNK - Ambulatory Encounter Chukwlinda Buddhist Nnabuife Edward Buddhist Nnabuife [facility] UNK - Ambulatory Encounter Chukwlinda Buddhist Nnabuife Edward Buddhist Nnabuife [facility] UNK - Ambulatory Encounter Chukwlinda Buddhist Nnabuife Chuvidhyawlinda Buddhist Nnabuife [facility] UNK - Ambulatory Encounter Chukwlinda Buddhist Nnabuife Edward Buddhist Nnabuife [facility] UNK - Ambulatory Encounter Gill Leon Buddhist Nnabuife Chuodilia Buddhist Nnabuife [facility] UNK - Ambulatory Encounter Bhavya Valdez [facility] UNK - Ambulatory Encounter Kayla Serrano [facility] UNK - Ambulatory Encounter Chukkavin Buddhist Nnabuife Edward Buddhist Nnabuife [facility] UNK - Ambulatory Encounter Tab Chang [facility] UNK - Ambulatory Encounter Chukwlinda Buddhist Nnabuife Gautamwlinda Buddhist Nnabuife [facility] UNK - Ambulatory Encounter Chukwlinda Buddhist Nnabuife Chukwlinda Buddhist Nnabuife [facility] UNK - Ambulatory Encounter LSJ Lab Support Desktop LinkLogic Tab Florezwuekathya Buddhist Nnabuife Jamarkwuekathya Buddhist Nnabuife [facility] UNK - Ambulatory Encounter Chukwlinda Buddhist Nnabuife Chukwlinda Buddhist Nnabuife [facility] UNK - Ambulatory Encounter Chukwlinda Buddhist Nnabuife Chukwfabiánmejose j Buddhist Nnabuife [facility] UNK - Ambulatory Encounter Chukwlinda Buddhist Nnabuife Jamarkwlinda Buddhist Nnabuife [facility] UNK - Ambulatory Encounter Comfort Christianson MedAdherence [place] Buddhist Nnabuife [place] Buddhist Nnabuife Marielena Reich [facility] Screening for diabetes mellitusScreening for lipid disorder - Ambulatory Encounter [place]wuem[place]a Buddhist Nnabuife [place]wuem[place]a Buddhist Nnabuife [facility] GERD - Ambulatory Encounter [place] Buddhist Nnabuife [place] Buddhist Nnabuife Stephanie Isabel [facility] UNK - Ambulatory Encounter [place] Buddhist Nnabuife [place]wu[place]a Buddhist Nnabuife [facility] UNK - Ambulatory Encounter Tab Roldankwuemejose j Buddhist Nnabuife [place] Buddhist Nnabuife Vivian Pope [facility] Services Contact Center UNK - Ambulatory Encounter [place]em[place]a Buddhist Nnabuife [place]wuem[place]a Buddhist Nnabuife [facility] UNK - Ambulatory Encounter Ch[place]wuem[place]a Buddhist Nnabuife Ch[place]wuem[place]a Buddhist Nnabuife [facility] UNK - Ambulatory Encounter [place]wuem[place]a Buddhist Nnabuife [place]wu[place] Buddhist Nnabuife [facility] UNK - Ambulatory Encounter Comfort Roldankwuemejose j Magañaian Nnabuife [place] Buddhist Nnabuife [facility] Diabetes mellitus type II - Ambulatory Encounter [place]wuem[place]a Buddhist Nnabuife [place] Buddhist Nnabuife LinkLogic [facility] UNK - Ambulatory Encounter Chuodilia Buddhist Nnabuife Edward Buddhist Nnabuife LinkLogic [facility] UNK - Ambulatory Encounter Loly Winslow [facility] UNK - Ambulatory Encounter Chuodilia Buddhist Nnabuife Edward Buddhist Nnabuife LinkLogic [facility] UNK - Ambulatory Encounter Chuodilia Buddhist Nnabuife Edward Buddhist Nnabuife [facility] UNK - Ambulatory Encounter Edward Buddhist Nnabuife Edward Buddhist Nnabuife [facility] UNK - Ambulatory Encounter Chuodilia Buddhist Nnabuife Edward Buddhist Nnabuife [facility] UNK - Ambulatory Encounter Chuodilia Buddhist Nnabuife Edward Buddhist Nnabuife [facility] UNK - Ambulatory Encounter Satinder Leon Buddhist Nnabuife Edward Buddhist Nnabuife [facility] UNK - Ambulatory Encounter Tiara Christianson MedAdherence [facility] UNK - Ambulatory Encounter Bhavya Pedersen MedAdherence [facility] UNK - Ambulatory Encounter Bhavya Pedersen MedAdherence LinkLogic [facility] UNK - Ambulatory Encounter Titi Kaitlynn Titi Calderón LinkLogic [facility] UNK - Ambulatory Encounter Chukwlinda Buddhist Nnabuife Chukwuemejose j Buddhist Nnabuife LinkLogic [facility] UNK - Ambulatory Encounter Chukwallanjose j Buddhist Nnabuife [place] Buddhist Nnabuife LinkLogic [facility] UNK - Ambulatory Encounter Chukkavin Buddhist Nnabuife Chukwfabiánmeka Buddhist Nnabuife [facility] UNK - Ambulatory Encounter Chukwlinda Buddhist Nnabuife Chukwfabiánmejose j Buddhist Nnabuife [facility] UNK - Ambulatory Encounter Chukwlinda Buddhist Nnabuife Chukwfabiánmejose j Buddhist Nnabuife [facility] UNK - Ambulatory Encounter Chukkavin Buddhist Nnabuife Chukwfabiánmejose j Buddhist Nnabuife [facility] UNK - Ambulatory Encounter Comfort Leon Buddhist Nnabuife Chukwlinda Buddhist Nnabuife [facility] Abdominal distensionAbdominal pain, chronicAscitesUrinary retention - Ambulatory Encounter Tiara Christianson MedAdherence [facility] UNK - Ambulatory Encounter Tiara Christianson MedAdherence Loly Stewart [facility] Services UNK - Ambulatory Encounter Tiara Christianson MedAdherence LinkLog [facility] UNK - Ambulatory Encounter Comfort Trevino [facility] - Ambulatory Encounter Mae Rodney [facility] UNK - Ambulatory Encounter Fax Status [facility] Services UNK - Ambulatory Encounter Fax Status LinkLogic [facility] Services UNK - Ambulatory Encounter Fax Status LinkLogic [facility] Services UNK - Ambulatory Encounter Fax Status LinkLogic [facility] Services UNK - Ambulatory Encounter Fax Status LinkLogic [facility] Services UNK - Ambulatory Encounter Fax Status LinkLogic [facility] Services UNK - Ambulatory Encounter Chukwuemejose j Buddhist Nnabuife Chukwuemejose j Buddhist Nnabuife [facility] UNK - Ambulatory Encounter Chukwlinda Buddhist Nnabuife Chukwuem[place]a Buddhist Nnabuife [facility] UNK - Ambulatory Encounter Chukwuekathya Buddhist Nnabuife Chukwuem[place]a Buddhist Nnabuife [facility] UNK - Ambulatory Encounter Toma Woods [facility] Mood Disorder, NOS - Ambulatory Encounter Lo Leon Buddhist Nnabuife Edward Buddhist Nnabuife Vivianmario Catalan Navadione Matthews [facility] Depression, majorSuicidal ideation - Ambulatory Encounter Comfort Trevino [facility] UNK - Ambulatory Encounter Tiara CisnerosAdherfaheem [facility] - Ambulatory Encounter Bhavya Pedersen MedAdherence [facility] UNK - Ambulatory Encounter Bhavya Pedersen MedAdherence LinkLogic [facility] UNK - Ambulatory Encounter Chuodilia Buddhist Nnabuife Edward Buddhist Nnabuife [facility] UNK - Ambulatory Encounter Chuodilia Buddhist Nnabuife Gautamwlinda Buddhist Nnabuife [facility] UNK - Ambulatory Encounter Chuodilia Buddhist Nnabuife Gautamwlinda Buddhist Nnabuife [facility] UNK - Ambulatory Encounter Chuodilia Buddhist Nnabuife Edward Buddhist Nnabuife [facility] UNK - Ambulatory Encounter Edward Buddhist Nnabuife Gautamwlinda Buddhist Nnabuife [facility] UNK - Ambulatory Encounter Gill Florezwuemejose j Buddhist Nnabuife Gautamwuekathya Buddhist Nnabuife [facility] UNK - Ambulatory Encounter Loly Goldy [facility] UNK - Ambulatory Encounter Tiara Christianson MedAdherence [facility] Services UNK - Ambulatory Encounter Edward Buddhist Nnabuife Gautamwuekathya Buddhist Nnabuife [facility] UNK - Ambulatory Encounter Bhavya Pedersen MedAdherence [facility] UNK - Ambulatory Encounter Bhavya Pedersen MedAdherence LinkLogic [facility] UNK - Ambulatory Encounter Edward Buddhist Cindyabuife Edward Buddhist Nnabuife Tab Matthews [facility] UNK - Ambulatory Encounter Comfort Tomlin [facility] UNK - Ambulatory Encounter Chukwuekathya Buddhist Nnabuife Chukwuemeka Buddhist Nnabuife [facility] UNK - Ambulatory Encounter Chukwuemeka Buddhist Nnabuife Chukwuemeka Buddhist Nnabuife [facility] UNK - Ambulatory Encounter Chukwuemeka Buddhist Nnabuife Chukwuemeka Buddhist Nnabuife [facility] UNK - Ambulatory Encounter Chukwlinda Buddhist Nnabuife Chukwuemejose j Buddhist Nnabuife [facility] UNK - Ambulatory Encounter Comfort Roldankwlinda Buddhist Nnabuife Chukwuemejose j Buddhist Nnabuife [facility] COPD with exacerbation - Ambulatory Encounter Tiara Christianson MedAdherence [facility] UNK - Ambulatory Encounter Tiara Christianson MedAdherence [facility] UNK - Ambulatory Encounter Tiara Christianson MedAdherence [facility] UNK - Ambulatory Encounter Chukwuemejose j Buddhist Nnabuife Chukwuemejose j Buddhist Nnabuife [facility] UNK - Ambulatory Encounter Chukwlinda Buddhist Nnabuife Chukwuemejose j Buddhist Nnabuife [facility] UNK - Ambulatory Encounter Gill Leon Buddhist Nnabuife Chukwuemejose j Buddhist Nnabuife [facility] UNK - Ambulatory Encounter Loly Thompson [facility] UNK - Ambulatory Encounter Abisaijose j Buddhist Nnabuife Jamarkwuejose j Buddhist Nnabuife LinkLogic [facility] UNK - Ambulatory Encounter [facility] - Ambulatory Encounter Fax Status [facility] - [facility]ulatory Encounter Fax Status [facility] UNK - Ambulatory Encounter Fax Status [facility] UNK - Ambulatory Encounter Fax Status [facility] UNK - Ambulatory Encounter Fax Status [facility] UNK - Ambulatory Encounter Fax Status [facility] UNK - Ambulatory Encounter Titi Kaitlynn Titi Kaitlynn [facility] UNK - Ambulatory Encounter Titi Kaitlynn Titi Kaitlynn [facility] UNK - Ambulatory Encounter Titi Kaitlynn Titi Kaitlynn [facility] UNK - Ambulatory Encounter Lo Gu Titi Kaitlynn Titi Kaitlynn [facility] MUSCLE SPASMEAR PAIN, RIGHTCandidal vaginitisOtitis media, acute - Ambulatory Encounter Satinder Gu [facility] UNK - Ambulatory Encounter Fax Status [facility]Logic [facility] - Ambulatory Encounter Fax Status [facility]Log[facility] UNK - Ambulatory Encounter Fax Status [facility] UNK - Ambulatory Encounter Bhavya Pedersen MedAdherence Loly Palacio [facility] UNK - Ambulatory Encounter Edward Roa Nnabuife Edward Roa Nnabuife [facility] UNK - Ambulatory Encounter Satinder Florezwuekathya Roa Nnabuinasir Roa Nnabuife Ayanna Matthews [facility] Breast abnormal findingsChronic bronchitisBMI 50.0-59.9 - Ambulatory Encounter Comfort Trevino LinkLogic [facility] UNK - Ambulatory Encounter Tiara Christianson MedAdherence [facility] UNK - Ambulatory Encounter Tiara Christianson MedAdherence LinkLogic [facility] UNK - Ambulatory Encounter Bhavya Pedersen MedAdherence [facility] UNK - Ambulatory Encounter Bhavya Pedersen MedAdherence LinkLogic [facility] UNK - Ambulatory Encounter Madhumita Sierra [facility] UNK - Ambulatory Encounter Madhumita Sierra LinkLogic [facility] UNK - Ambulatory Encounter Bhavya Pedersen MedAdherence Stephanie Hernandez [facility] UNK - Ambulatory Encounter Madhumita Sierra [facility] UNK - Ambulatory Encounter Madhumita Sierra [facility] UNK - Ambulatory Encounter Madhumitkaylin Esquivel LinkLogic [facility] UNK - Ambulatory Encounter Nupur Chong [facility] UNK - Ambulatory Encounter Nupur Chong [facility] UNK - Ambulatory Encounter Edwin Lyndsay Umana [facility] UNK - Ambulatory Encounter Edwin Lyndsay Umana [facility] UNK - Ambulatory Encounter Edwin Lyndsay Umana [facility] UNK - Ambulatory Encounter Comfort Ma Gamino [facility] MORBID OBESITYOtitis media, acute - Ambulatory Encounter Fabricio Beard [facility] UNK - Ambulatory Encounter Lo Esquivel [facility] UNK - Ambulatory Encounter Lo Esquivel [facility] Candidal vaginitis - Ambulatory Encounter Lo Esquivel [facility] - [facility]ulatory Encounter Breana Rosario [facility] UNK [facility] Ambulatory Encounter Breana Rosario [facility] UNK [facility] Ambulatory Encounter Mary [facility]oto [facility] UNK - Ambulatory Encounter Fabricio Beard [facility] UNK - Ambulatory Encounter Bria Young [facility] UNK - Ambulatory Encounter Janetuma Carlisle [facility] UNK - Ambulatory Encounter carmela [facility]ag [facility] - [facility] En[facility] - Ambulatory Encounter Comfort Trevino [facility] UNK - Ambulatory Encounter [facility]havya [facility] - Ambulatory Encounter Comfort Trevino [facility] UNK - Ambulatory Encounter Carmelina Riccardo 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 UNK - Ambulatory Encounter Jan Johnson [facility] 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 UNK - Ambulatory Encounter Fax Status LinkLogic [facility] UNK - Ambulatory Encounter Fax Status LinkLogic [facility] UNK - Ambulatory Encounter Fax Status [facility] UNK - Ambulatory Encounter Deniz Lira [facility] UNK - Ambulatory Encounter Bhavya Pedersen [facility] UNK - Ambulatory Encounter Comfort Trevino LinkLogic [facility] UNK - Ambulatory Encounter Comfort Trevion [facility] UNK - Ambulatory Encounter Comfort Trevino LinkLogic [facility] UNK - Ambulatory Encounter Fax Status LinkLogic [facility] UNK - Ambulatory Encounter Fax Status LinkLogic [facility] UNK - Ambulatory Encounter Comfort Trevino LinkLogic [facility] UNK - Ambulatory Encounter Fax Status LinkLogic [facility] UNK - Ambulatory Encounter Fax Status LinkLogic [facility] UNK - Ambulatory Encounter Comfort Trevino LinkLogic [facility] UNK - Ambulatory Encounter Comfort Trevino LinkLogic [facility] UNK - Ambulatory Encounter Comfort Trevino LinkLogic [facility] UNK - Ambulatory Encounter Comfort Trevino LinkLogic [facility] UNK - Ambulatory Encounter Kimberly Pedersen MedAdherence Comfort Feldman [facility] UNK - Ambulatory Encounter Kimberly Trevino [facility] UNK - Ambulatory Encounter Tab [facility] UNK - Ambulatory Encounter Fax Status LinkLogic [facility] UNK - Ambulatory Encounter Fax Status LinkLogic [facility] UNK - Ambulatory Encounter Fax Status LinkLogic [facility] UNK - Ambulatory Encounter Kimberly Trevino [facility] UNK - Ambulatory Encounter Comfort Trevino [facility] UNK - Ambulatory Encounter Comfort Trevino LinkLogic Kimberly Jorgensen [facility] UNK - Ambulatory Encounter Fax Status LinkLogic [facility] UNK - Ambulatory Encounter Jenny Gaston [facility] UNK - Ambulatory Encounter Fax Status LinkLogic [facility] UNK - Ambulatory Encounter Fax Status LinkLogic [facility] UNK - Ambulatory Encounter Comfort Trevino LinkLogic [facility] UNK - Ambulatory Encounter Kimberly Trevino [facility] UNK - Ambulatory Encounter Comfort Trevino LinkLogic Kimberly Jorgensen [facility] UNK - Ambulatory Encounter Jenny Gaston [facility] - Ambulatory Encounter Gosia Trevino [facility] UNK - Ambulatory Encounter Comfort TorresLogedward Mayes [facility] UNK - Ambulatory Encounter Comfort Tellez [facility] CHRONIC OBSTRUCTIVE PULMONARY DISEASE, ACUTE EXACERBATIONCHFSLEEP APNEA - Ambulatory Encounter Gill Villafuerte [facility] UNK - Ambulatory Encounter Fax Status [facility] - Ambulatory Encounter Fax Status LinkLogic [facility] UNK - Ambulatory Encounter Fax Status LinkLogic [facility] UNK - Ambulatory Encounter Fax Status LinkLogic [facility] UNK - Ambulatory Encounter Fax Status [facility] UNK - Ambulatory Encounter Fax Status [facility] UNK - Ambulatory Encounter Fax Status [facility] UNK - Ambulatory Encounter Jenny Gaston [facility] UNK - Ambulatory Encounter Thea Ward [facility] LOW BACK PAIN - Ambulatory Encounter Sabra Mitchell [facility] UNK - Ambulatory Encounter Sabra Mitchell [facility] UNK - Ambulatory Encounter Ernesto Gaffney [facility] DEPENDENT EDEMA, LEGS - Ambulatory Encounter Bhavya [facility]ersen [facility] - Ambulatory Encounter Bhavya Pedersen [facility] UNK - Ambulatory Encounter Jonelle [facility] UNK - Ambulatory Encounter [facility] UNK - Ambulatory Encounter [facility] UNK - Ambulatory Encounter [facility] UNK - Ambulatory Encounter [facility] UNK - Ambulatory Encounter Malena Isabel [facility] UNK - Ambulatory Encounter Ernesto Matthews [facility] EAR PAIN, RIGHTBLURRED VISIONHEARING DEFICIT - Ambulatory Encounter Congregational Preload LinkLogic [facility] UNK - Ambulatory Encounter Congregational Preload LinkLogic [facility] UNK - Ambulatory Encounter Congregational Preload LinkLogic [facility] UNK - Ambulatory Encounter Congregational Preload LinkLogic [facility] UNK - Ambulatory Encounter Congregational Preload LinkLogic [place] UNK - Ambulatory Encounter Congregational Preload LinkLogic [place] UNK - Ambulatory Encounter Congregational Preload LinkLogic [place] [facility] UNK - Ambulatory Encounter Congregational Preload LinkLogic [place] UNK - Ambulatory Encounter Congregational Preload LinkLogic [place] [facility] UNK - Ambulatory Encounter Congregational Preload LinkLogic [place] [facility] UNK - Ambulatory Encounter Congregational Preload LinkLogic [place] [facility] UNK - Ambulatory Encounter Congregational Preload LinkLogic [facility] UNK - Ambulatory Encounter Congregational Preload LinkLogic [place] [facility] UNK - Ambulatory Encounter Congregational Preload LinkLogic [facility] UNK - Ambulatory Encounter Congregational Preload LinkLogic [facility] UNK - Ambulatory Encounter Congregational Preload LinkLogic [facility] UNK - Ambulatory Encounter Congregational Preload LinkLogic [place] [facility] UNK - Ambulatory Encounter Congregational Preload LinkLogic [place] [facility] UNK - Ambulatory Encounter Congregational Preload LinkLogic [facility] UNK - Ambulatory Encounter Congregational Preload LinkLogic [facility] UNK - Ambulatory Encounter Congregational Preload LinkLogic [facility] UNK - Ambulatory Encounter Congregational Preload LinkLogic [facility] UNK - Ambulatory Encounter Congregational Preload LinkLogic [place] [facility] UNK - Ambulatory Encounter Congregational Preload LinkLogic [place] UNK - Ambulatory Encounter Congregational Preload LinkLogic [place] UNK - Ambulatory Encounter Congregational Preload LinkLogic [place] UNK - Ambulatory Encounter Congregational Preload LinkLogic [place] [facility] UNK - Ambulatory Encounter Congregational Preload LinkLogic [place] [facility] UNK - Ambulatory Encounter Congregational Preload LinkLogic [place] [facility] UNK - Ambulatory Encounter Congregational Preload LinkLogic [place] [facility] UNK - Ambulatory Encounter Congregational Preload LinkLogic [place] [facility] UNK - Ambulatory Encounter Congregational Preload LinkLogic [place] [facility] UNK - Ambulatory Encounter Congregational Preload LinkLogic [place] [facility] UNK - Ambulatory Encounter Congregational Preload LinkLogic [place] [facility] UNK - Ambulatory Encounter Congregational Preload LinkLogic [facility] UNK - Ambulatory Encounter Congregational Preload LinkLogic [place] [facility] UNK - Ambulatory Encounter Congregational Preload LinkLogic [place] [facility] UNK - Ambulatory Encounter Congregational Preload LinkLogic [place] [facility] UNK - Ambulatory Encounter Congregational Preload LinkLogic [place] [facility] UNK - Ambulatory Encounter Congregational Preload LinkLogic [facility] UNK - Ambulatory Encounter [facility]ational [facility] Congregational Preload LinkLogic [facility] UNK - Ambulatory Encounter Congregational Preload LinkLogic [facility] UNK - Ambulatory Encounter Congregational Preload LinkLogic [facility] UNK - Ambulatory Encounter Congregational Preload LinkLogic [facility] UNK - Ambulatory Encounter Congregational Preload LinkLogic [place] [facility] UNK - Ambulatory Encounter Congregational Preload LinkLogic [facility] UNK - Ambulatory Encounter Congregational Preload LinkLogic [facility] UNK - Ambulatory Encounter Congregational Preload LinkLogic [facility] UNK - Ambulatory Encounter Congregational Preload LinkLogic [facility] UNK - Ambulatory Encounter Congregational Preload LinkLogic [facility] UNK - Ambulatory Encounter Congregational Preload LinkLogic [facility] UNK - Ambulatory Encounter Congregational Preload LinkLogic [facility] UNK - Ambulatory Encounter Congregational Preload LinkLogic [facility] UNK - Ambulatory Encounter Congregational Preload LinkLogic [facility] UNK - Ambulatory Encounter Congregational Preload LinkLogic [facility] UNK - Ambulatory Encounter Congregational Preload LinkLogic [facility] UNK - Ambulatory Encounter Congregational Preload LinkLogic [facility] UNK - Ambulatory Encounter Congregational Preload LinkLogic [facility] UNK - Ambulatory Encounter Congregational Preload LinkLogic [place] [facility] UNK - Ambulatory Encounter Congregational Preload LinkLogic [place] [facility] UNK - Ambulatory Encounter Congregational Preload LinkLogic [place] [facility] UNK - Ambulatory Encounter Congregational Preload LinkLogic [place] [facility] UNK - Ambulatory Encounter Congregational Preload LinkLogic [place] [facility] UNK - Ambulatory Encounter Congregational Preload LinkLogic [place] [facility] UNK - Ambulatory Encounter Congregational Preload LinkLogic [place] [facility] UNK - Ambulatory Encounter Congregational Preload LinkLogic [place] [facility] UNK - Ambulatory Encounter Congregational Preload LinkLogic [place] [facility] UNK - Ambulatory Encounter Sharpe Vo Sharpe Vo LinkLogic [place] [facility] UNK - Ambulatory Encounter Congregational Preload LinkLogic [place] [facility] UNK - Ambulatory Encounter Congregational Preload LinkLogic [place] [facility] UNK - Ambulatory Encounter Congregational Preload LinkLogic [facility] UNK - Ambulatory Encounter Congregational Preload LinkLogic [place] [facility] UNK - Ambulatory Encounter Congregational Preload LinkLogic [place] [facility] UNK - Ambulatory Encounter Congregational Preload LinkLogic [place] [facility] UNK - Ambulatory Encounter Congregational Preload LinkLogic [facility] UNK - Ambulatory Encounter Congregational Preload LinkLogic [facility] UNK - Ambulatory Encounter Congregational Preload LinkLogic [facility] UNK - Ambulatory Encounter Congregational Preload LinkLogic [place] [facility] UNK - Ambulatory Encounter Congregational Preload LinkLogic [place] [facility] UNK - Ambulatory Encounter Congregational Preload LinkLogic [place] [facility] UNK - Ambulatory Encounter Congregational Preload LinkLogic [place] [facility] UNK - Ambulatory Encounter Congregational Preload LinkLogic [place] [facility] UNK - Ambulatory Encounter Congregational Preload LinkLogic [place] [facility] UNK - Ambulatory Encounter Congregational Preload LinkLogic [place] [facility] UNK - Ambulatory Encounter Congregational Preload LinkLogic [place] [facility] UNK - Ambulatory Encounter Congregational Preload LinkLogic [place] [facility] UNK - Ambulatory Encounter Congregational Preload LinkLogic [place] [facility] UNK - Ambulatory Encounter Congregational Preload LinkLogic [place] [facility] UNK - Ambulatory Encounter Congregational Preload LinkLogic [place] [facility] UNK - Ambulatory Encounter Congregational Preload LinkLogic [place] [facility] UNK - Ambulatory Encounter Congregational Preload LinkLogic [place] [facility] UNK - Ambulatory Encounter Congregational Preload LinkLogic [place] [facility] UNK - Ambulatory Encounter Congregational Preload LinkLogic [place] [facility] UNK - Ambulatory Encounter Congregational Preload LinkLogic [place] [facility] UNK - Ambulatory Encounter Congregational Preload LinkLogic [place] [facility] UNK - Ambulatory Encounter Congregational Preload LinkLogic [place] [facility] UNK - Ambulatory Encounter Congregational Preload LinkLogic [place] [facility] UNK - Ambulatory Encounter Congregational Preload LinkLogic [place] [facility] UNK - Ambulatory Encounter Congregational Preload LinkLogic [place] [facility] UNK - Ambulatory Encounter Congregational Preload LinkLogic [place] [facility] UNK - Ambulatory Encounter Congregational Preload LinkLogic [place] [facility] UNK - Ambulatory Encounter Congregational Preload LinkLogic [place] [facility] UNK - Ambulatory Encounter Congregational Preload LinkLogic [place] [facility] UNK - Ambulatory Encounter Congregational Preload LinkLogic [place] [facility] UNK - Ambulatory Encounter Congregational Preload LinkLogic [place] [facility] UNK - Ambulatory Encounter Congregational Preload LinkLogic [place] [facility] UNK - Ambulatory Encounter Congregational Preload LinkLogic [place] [facility] UNK - Ambulatory Encounter Congregational Preload LinkLogic [place] [facility] UNK - Ambulatory Encounter Congregational Preload LinkLogic [place] [facility] UNK - Ambulatory Encounter Colleen [facility] UNK - Ambulatory Encounter Sharpe Gulshan Gaffney [place] [facility] UNK - Ambulatory Encounter Gill Villafuerte LinkLogic Annemarie Gaffney [facility] UNK - Ambulatory Encounter Gill Macias Pace Annemarie Gaffney [facility] UNK - Ambulatory Encounter [facility]kaylin [facility] UNK - Ambulatory Encounter Annemarie Gaffney Vanessa Pedersen MedAdherence [place] UN - Ambulatory Encounter Gillkaylin Villafuerte [facility] UNK - Ambulatory Encounter Gillkaylin Bakerecca Gutierrez [facility] COPDNICOTINE ADDICTIONSARCOIDOSISHYPERTENSIONMUSCLE SPASM - Ambulatory [facility] V[facility]NS Date Observation Value Provider oxygen [...] oxygen saturation, oximetry 95 % Francesca Ernesto Lebron " blood pressure, diastolic 83 mm[Hg] Francesca [facility] " blood pressure, systolic 129 mm[Hg] [facility] " respiratory rate E&M 18 /min Francesca [facility] " pulse rate E&M 99 /min Edward Boyceuinasir " temperature site oral [facility] " temperature E&M 98.0 [degF] Francesca [facility] " weight E&M 326.20 lbs. Francesca Orozco Lebron " weight in kilograms E&M 148.27 kg Francesca [facility] " height in centimeters E&M 154.94 cm [facility] " height E&M 61 [in_i] Francesca [facility] method used to obtain blood pressure automatic [facility] " Blood Pressure Position 01 sitting [facility] " blood pressure, site #1 left arm [facility] " oxygen saturation, oximetry 98 % [facility] " blood pressure, diastolic 84 mm[Hg] Francesca [facility] " blood pressure, systolic 135 mm[Hg] Francesca [facility] " respiratory rate E&M 18 /min Francesca [facility] " pulse rate E&M 98 /min Francesca [facility] " temperature site oral Francesca Orozco Lebron " temperature E&M 98.4 [degF] Francesca [facility] " weight E&M 321.80 lbs. [facility] " weight in kilograms E&M 146.27 kg Francesca [facility] " height in centimeters E&M 154.94 cm Francesca [facility] " height E&M 61 [in_i] [facility] saturation, oximetry 94 % Nupur [...] " blood pressure, systolic 128 mm[Hg] Edward Buddhist Austenmelitafe " respiratory rate E&M 17 /min Stephanie [...] used to obtain blood pressure automatic Alayna Champan " Blood Pressure Position 01 sitting Alayna [...] Chong " Blood Pressure Position 01 sitting Nupurstephen Chong " blood pressure, site #1 left arm Nupurstephen Chong " blood pressure, diastolic 70 mm[Hg] [...] height in centimeters E&M 154.94 cm Nupur hCong oxygen saturation, oximetry 91 % Taina Gu [...] " respiratory rate E&M 22 /min Taina Riccardo " pulse rate E&M 111 /min Tainakaylin Gu " temperature site tympanic Taina Gu [...] Francesca Stevenson " height E&M 61 [in_i] Francesca Stevenson " height in centimeters E&M 154.94 cm [...] Gamino " weight E&M 287.38 lbs. Francesca Parkerrez [...] height in centimeters E&M 154.94 cm Rosalinda Wadr oxygen saturation, oximetry 87 % Rosalinda Ward [...] Pace oxygen saturation, oximetry 97 % Honeytejas Harringtonoy " pulse rate E&M 98 /min Honeytejas Gutierrez " weight E&M 272 lbs. Honey Gutierrez " weight in kilograms E&M 123.64 kg Honey Gutierrez " height E&M 61 [in_i] Honeytejas Gutierrez " height in centimeters E&M 154.94 cm Honeytejas Harringtonoy " respiratory rate E&M 24 /min Honey Gutierrez " method used to obtain blood pressure manual Honeyniru Gutierrez " Blood Pressure Position 01 sitting Honeytejas Harringtonoy " blood pressure, site #1 right arm [...] as % of total hemoglobin 8.2 % Jamarodilia Roa Nnabuife alanine aminotransferase (SGPT), serum 50 [...] 3.4-10.8 High blood glucose, random 256 mg/dL [facility] " hemoglobin A1C, blood, as % of total hemoglobin 8.3 % [facility] Danny hematocrit, blood 37.6 % Kayla Ruel " [...] day as needed for pain and inflammation Abisaijose j Crispin Delgado DEBROX 6.5 % OTIC SOLUTION [...] TAKE 1 TABLET BY MOUTH ONCE DAILY [facility] FREESTYLE LANCETS Use as directed to test blood sugar once daily [facility] ICD CODE E11.9 FREESTYLE LITE TEST IN VITRO STRIP Use as directed to test blood sugar once daily [facility] ICD CODE E11.9 FREESTYLE FREEDOM LITE W/DEVICE KIT Use as directed to test blood sugar once daily [facility] ICD CODE E11.9 BD [...] Times a Day to administer insulin [facility] Updated directions IPRATROPIUM/ ALBUTER EMI USE 1 AMPULE IN NEBULIZER EVERY 4 HOURS NEEDED FOR WHEEZING Tiara [email or web address] AZITHROMYCIN 250 MG ORAL TABLET 2 tablets [...] Date Observation Value Provider time of call 09/18/2019 10:55 AM Vanessa Padilla drug use, illicit Never Sheryl Odonnell " alcohol use Currently Sheryl Odonnell " social history E&M Single. Not homeless. Born in [facility]. City: [facility]. State: [place]. Not employed. Retired. Highest education level: high school graduate. Gender of partner(s): male. Sheryl Odonnell " social history reviewed E&M reviewed today Sheryl Odonnell " assessment of health literacy ([facility] 2014 Standards, 3C10) Adequate Sheryl Odonnell " passive cigarette smoke exposure No Sheryl Odonnell " if the patient is using/has used a vaping item, Current, Former, Never Used, Not asked No Sheryl Odonnell " smoking status former smoker Sheryl Odonnell " Exercise Program Referral T Sheryl Odonnell " Weight Management Counseling Provided T Sheryl Odonnell " Nutrition intervention Miguel A Odonnell social history E&M Single. Not homeless. Born in [facility]. City: [facility]. State: [place]. Not employed. Retired. Highest education level: high school graduate. Gender of partner(s): male. Francesca Diana " social history reviewed E&M reviewed today Francesca Diana " assessment of health literacy ([facility] 2014 Standards, 3C10) Adequate Francesca Diana " passive cigarette smoke exposure Yes Francesca Diana " smoking status former smoker Francesca Diana " Exercise Program Referral T Francesca Diana " Weight Management Counseling Provided T Francesca Diana " Nutrition intervention Miguel A Diana time of call 07/18/2019 2:19 PM Eusebia Gagnon social history E&M Single. Not homeless. Born in [facility]. City: [facility]. State: [place]. Not employed. Retired. Highest education level: high school graduate. Gender of partner(s): male. Francesca Diana " social history reviewed E&M reviewed today Francesca Diana " assessment of health literacy ([facility] 2014 Standards, 3C10) Adequate Francesca Diana " passive cigarette smoke exposure Yes Francesca Diana " smoking status former smoker Francesca Diana " Exercise Program Referral T Francesca Orzoco Lebron " Weight Management Counseling Provided T Francesca Ernesto Lebron " Nutrition intervention T Francesca Orozco Lebron Exercise Program Referral T Satinder Ghazal " Weight Management Counseling Provided T Satinder Harman " Nutrition intervention T Satinder Harman drug use, illicit Never Nupur Chong " alcohol use Currently Nupur Chong " social history E&M Single. Not homeless. Born in [facility]. City: [facility]. State: [place]. Not employed. Retired. Highest education level: high school graduate. Gender of partner(s): male. Nupur Chong " social history reviewed E&M reviewed today Nupur Chong " assessment of health literacy ([facility] 2014 Standards, 3C10) Adequate Nupur Chong " passive cigarette smoke exposure Yes Nupur Chong " smoking status former smoker Nupur Chong time of call 04/02/2019 8:30 AM Daphney Espitia drug use, illicit Never Stephanie Chalo " alcohol use Currently Stephanie Chalo " social history E&M Single. Not homeless. Born in [facility]. City: [facility]. State: [place]. Not employed. Retired. Highest education level: high school graduate. Gender of partner(s): male. Stephanie Isabel " social history reviewed E&M reviewed today Stephanie Chalo " assessment of health literacy ([facility] 2014 Standards, 3C10) Adequate Stephanie Chalo " passive cigarette smoke exposure Yes Stephanie Chalo " smoking status former smoker Stephanie Isabel " Exercise Program Referral T Stephanie Chalo " Weight Management Counseling Provided T Stephanie Isabel " Nutrition intervention T Stephanie Isabel sunscreen use No Chukwuemejose j Buddhist Nnabuife " Exercise Program Referral T Gautamwuekathya Buddhist Nnabuife " Weight Management Counseling Provided T Edward Magañaian Nnabuife " Nutrition intervention T Chukwuemejose j Buddhist Nnabuife " drug use, illicit Never Nupur Chong " alcohol use Currently Nupur Chong " social history E&M Single. Not homeless. Born in [facility]. City: [facility]. State: [place]. Not employed. Retired. Highest education level: high school graduate. Gender of partner(s): male. Nupur Chong " social history reviewed E&M reviewed today Nupur Chong " assessment of health literacy ([facility] 2014 Standards, 3C10) Adequate Nupur Chong " [...] history E&M Single. Not homeless. Born in [facility]. City: [facility]. State: [place]. Not employed. Retired. Highest education level: high school graduate. Gender of partner(s): male. Nupur Chong " social history reviewed E&M reviewed today Nupur Chong " assessment of health literacy ([facility] 2014 Standards, 3C10) Adequate Nupur Chong " passive cigarette smoke exposure No Nupur Chong " smoking status former smoker Nupur Chong time of call 11/21/2018 9:45 AM Joaquim Engel drug use, illicit Never Stephanie Isabel " alcohol use Currently Stephanie Chalo " social history E&M Single. Not homeless. Born in [facility]. City: [facility]. State: [place]. Not employed. Retired. Highest education level: high school graduate. Gender of partner(s): male. Stephanie Isabel " social history reviewed E&M reviewed today Stephanie Isabel " assessment of health literacy ([facility] 2014 Standards, 3C10) Adequate Stephanie Isabel " is there any chance that you could be ? No Stephanie Isabel " passive cigarette smoke exposure No Stephanie Isabel " smoking status former smoker Stephanie Isabel " Exercise Program Referral Miguel A Isabel " Weight Management Counseling Provided T Stephanie Isabel " Nutrition intervention Miguel A Isabel time of call 08/07/2018 1:51 PM Clementine Velasquez drug use, illicit Never Hafsa Will " alcohol use Currently Hafsa Will " social history E&M Single. Not homeless. Born in [facility]. City: [facility]. State: [place]. Not employed. Retired. Highest education level: high school graduate. Gender of partner(s): male. Hafsa Will " social history reviewed E&M reviewed today Hafsa Will " assessment of health literacy ([facility] 2014 Standards, 3C10) Adequate Hafsa Will " passive cigarette smoke exposure No Hafsa Will " smoking status former smoker Hafsa Will " Exercise Program Referral T Hafsa Will " Weight Management Counseling Provided T Hafsa Will " Nutrition intervention T Hafsa Will drug use, illicit Never Violette Pool " alcohol use Currently Violette Pool " social history E&M Single. Not homeless. Born in [facility]. City: [facility]. State: [place]. Not employed. Retired. Highest education level: high school graduate. Gender of partner(s): male. Violette Pool " social history reviewed E&M reviewed today Violette Pool " assessment of health literacy ([facility] 2014 Standards, 3C10) Adequate Violette Pool " passive cigarette smoke exposure No Violette Pool " smoking status former smoker Violette Pool alcohol use Currently Hafsa Will " drug use, illicit Never Hafsa Will " social history E&M Single. Not homeless. Born in [facility]. City: [facility]. State: [place]. Not employed. Retired. Highest education level: high school graduate. Gender of partner(s): male. Hafsa Will " social history reviewed E&M reviewed today Hafsa Will " assessment of health literacy ([facility] 2014 Standards, 3C10) Adequate Hafsa Will " passive cigarette smoke exposure No Hafsa Will " smoking status former smoker Hafsa Will " Exercise Program Referral T Hafsa Will " Weight Management Counseling Provided T Hafas Will " Nutrition intervention T Hafsa Will drug use, illicit Never Priya Jerad " alcohol use Currently Priya Jerad " social history E&M Single. Not homeless. Born in [facility]. City: [facility]. State: [place]. Not employed. Retired. Highest education level: high school graduate. Gender of partner(s): male. Priya Jerad " social history reviewed E&M reviewed today Priya Jerad " assessment of health literacy ([facility] 2014 Standards, 3C10) Adequate Priya Mars " [...] PM Raysa Potts Exercise Program Referral T Gautamshericefabiánjose j Buddhist Nnabuife " Weight Management Counseling Provided T Gautamshericefabiánjose j Buddhist Nnabuife " Nutrition intervention T Gautamshericefabiánjose j Buddhist Nnabuife " social history E&M Single. Not homeless. Born in [facility]. City: [facility]. State: [place]. Not employed. Retired. Highest education level: high school graduate. Gender of partner(s): male. Alayna Chapman " social history reviewed E&M reviewed today Alayna Chapman " assessment of health literacy ([facility] 2014 Standards, 3C10) Adequate Alayna Chapman " passive cigarette smoke exposure Yes Alayna Chapman " smoking status former smoker Alayna Chapman time of call 04/24/2018 11:41 AM Gayle Serrano drug use, illicit Never Stephanie Isabel " alcohol use Currently Stephanie Chalo " social history E&M Single. Not homeless. Born in [facility]. City: [facility]. State: [place]. Not employed. Retired. Highest education level: high school graduate. Gender of partner(s): male. Stephanie Isabel " social history reviewed E&M reviewed today Stephanie Isabel " assessment of health literacy ([facility] 2014 Standards, 3C10) Adequate Stephanie Isabel " [...] history E&M Single. Not homeless. Born in [facility]. City: [facility]. State: [place]. Not employed. Retired. Highest education level: high school graduate. Gender of partner(s): male. Alayna Chapman " social history reviewed E&M reviewed today Alayna Chapman " assessment of health literacy ([facility] 2014 Standards, 3C10) Adequate Alayna Chapman " passive cigarette smoke exposure No Alayna Chapman " smoking status former smoker Alayna Chapman " Exercise Program Referral T Alayna Chapman " Weight Management Counseling Provided T Alayna Chapman " Nutrition intervention T Alayna Chapman Exercise Program Referral T Jamarvidhyashericelinda Buddhist Nnabuife " Weight Management Counseling Provided T Opalfabiánmejose j Buddhist Nnabuife " Nutrition intervention T Jamarvidhyashericefabiánmejose j Buddhist Nnabuife " alcohol use Currently Alayna Chapman " social history E&M Single. Not homeless. Born in [facility]. City: [facility]. State: [place]. Not employed. Retired. Highest education level: high school graduate. Gender of partner(s): male. Alayna Chapman " social history reviewed E&M reviewed today Alayna Chapman " assessment of health literacy ([facility] 2014 Standards, 3C10) Adequate Alayna Chapman " passive cigarette smoke exposure No Alayna Chapman " smoking status former smoker Alayna Chapman " assessment of health literacy ([facility] 2014 Standards, 3C10) Adequate Alayna Chapman " drug use, illicit Never Alayna Chapman " alcohol use Currently Alayna Chapman " social history E&M Single. Not homeless. Born in [facility]. City: [facility]. State: [place]. Not employed. Retired. Highest education level: high [...] history E&M Single. Not homeless. Born in [facility]. City: [facility]. State: [place]. Not employed. Retired. Highest education level: high [...] history E&M Single. Not homeless. Born in [facility]. City: [facility]. State: [place]. Not employed. Retired. Highest education level: high school graduate. Gender of partner(s): male. Stephanie Chalo " social history reviewed E&M reviewed today Stephanie Isabel " passive cigarette smoke exposure Yes Stephanie Isabel " smoking status former smoker Stephanie Isabel " Exercise Program Referral T Stephanie Isabel " Weight Management Counseling Provided T Stephanie Chalo " Nutrition intervention T Stephanie Chalo time of call 10/25/2017 2:55 PM Ana M Palacio Exercise Program Referral T Edward Whiteabuinasir " Weight Management Counseling Provided T Edward Boyceuife " Nutrition intervention T Edward Whiteabuife " social history E&M Single. Not homeless. Born in [facility]. City: [facility]. State: [place]. Not employed. Retired. Highest education level: high school graduate. Gender of partner(s): male. Edward Boyceuife " social history reviewed E&M reviewed today Edward Whiteabuife " drug use, illicit Never Nupur Chong " alcohol use Currently Nupur Chong " passive cigarette smoke exposure Yes Nupur Chong " smoking status former smoker Nupur Chong time of call 09/02/2017 9:48 AM Donna Landis sunscreen use No Gautamwlinda Roa Nnabuife " social history E&M Single. Not homeless. Born in [facility]. City: [facility]. State: [place]. Not employed. Retired. Highest education level: high school graduate. Gender of partner(s): male. Edward Boyceuife " social history reviewed E&M reviewed today Edward Whiteabuife " passive cigarette smoke exposure Yes Taina Gu " smoking status former smoker Taina Riccardo time of call 08/11/2017 8:56 AM Donna Sabiha Exercise Program Referral T Titi Calderón " Weight Management Counseling Provided T Titi Calderón " Nutrition intervention T Titicleveland Calderón " passive cigarette smoke exposure No Taina Gu " smoking status former smoker Taina Gu time of call 07/21/2017 4:25 PM Alayna Gu social history E&M Single. Not homeless. Born in [facility]. City: [facility]. State: [place]. Not employed. Retired. Highest education level: high [...] Edwin Umana " Weight Management Counseling Provided Miguel [...] history E&M Single. Not homeless. Born in [facility]. City: [facility]. State: [place]. Not employed. Retired. Highest education level: high [...] history E&M Single. Not homeless. Born in [facility]. City: [facility]. State: [place]. Not employed. Retired. Highest education level: high school graduate. Gender of partner(s): male. Honeytejas Gutierrez " drug use, illicit Never Honeyniru Gutierrez " alcohol use Never Honey Brenda " Occupation #1 Retired Honeytejas Gutierrez " patient considered to be homeless No Honey Gutierrez " passive cigarette smoke exposure Yes Honey Gutierrez " cigarettes, number smoked per day 1 pack Honey Gutierrez " smoking status current every day smoker Honey Harringtonoy FUNCTIONAL STATUS Date Observation Value Provider total score, Activities of Daily Living (ADL) Independent Edward Delgado Activities of Daily Living (ADLs, IADLs, etc.) Decrease in ADL Edward Delgado MENTAL STATUS Date Observation Value Provider assessment of judgment and insight E&M intact Edward Fragafe " mental status examination: orientation E&M oriented to time, place, and person [facility] " assessment of mood and affect E&M no depression, anxiety, or agitation [facility] " Generalized Anxiety Disorder Questionnaire - Question [...] assessment of judgment and insight E&M intact [facility] " mental status examination: orientation E&M oriented to time, place, and person [facility] " assessment of mood and affect E&M no depression, anxiety, or agitation [facility] " Generalized Anxiety Disorder Questionnaire - Question 2 0 Francesca Diana " Generalized Anxiety Disorder Questionnaire - Question 1 0 Francesca Diana assessment of judgment and insight E&M intact [facility] " mental status examination: orientation E&M oriented to time, place, and person [facility] " assessment of mood and affect E&M no depression, anxiety, or agitation [facility] " Generalized Anxiety Disorder Questionnaire - Question 2 0 Francesca Diana " Generalized Anxiety Disorder Questionnaire - Question 1 0 Francesca Diana assessment of judgment and insight E&M intact [facility] " assessment of mood and affect E&M no depression, anxiety, or agitation [facility] " mental status examination: orientation E&M oriented to time, place, and person [facility] " Generalized Anxiety Disorder Questionnaire - Question 2 0 Nupur Chong " Generalized Anxiety Disorder Questionnaire - Question 1 0 Nupur Chong assessment of judgment and insight E&M intact [facility] abui " mental status examination: orientation E&M oriented to time, place, and person [facility] " assessment of mood and affect E&M no depression, anxiety, or agitation [facility] Nnabui " Generalized Anxiety Disorder Questionnaire - Question 2 0 Stephanie Isabel " Generalized Anxiety Disorder Questionnaire - Question 1 0 Stephanie Isabel assessment of judgment and insight E&M intact [facility] Nnabui " mental status examination: orientation E&M oriented to time, place, and person [facility] Nn[facility] " assessment of mood and affect E&M anxious, depressed mood [facility] Nnabui " Generalized Anxiety Disorder Questionnaire - [...] judgment and insight E&M intact [facility] abui " mental status examination: orientation E&M oriented to time, place, and person [facility] " assessment of mood and affect E&M anxious, depressed mood [facility] " Generalized Anxiety Disorder Questionnaire - Question 2 0 Stephanie Isabel " Generalized Anxiety Disorder Questionnaire - Question 1 0 Stephanie Isabel assessment of judgment and insight E&M intact [facility] abui " mental status examination: orientation E&M oriented to time, place, and person [facility] ab[facility]ife " assessment of mood and affect E&M anxious, depressed mood [facility] abuife mental status examination: orientation E&M alert and [...] judgment and insight E&M intact Edward Buddhist abui " mental status examination: orientation E&M oriented to time, place, and person Chuklinda Buddhist Nnabuife " assessment of mood and affect E&M anxious, depressed mood Chuvidhyalinda Buddhist Nnabuife assessment of judgment and insight E&M intact Edward Buddhist Nnabui " mental status examination: orientation E&M oriented to time, place, and person Chuklinda [facility] Nnabuife " assessment of mood and affect E&M anxious, depressed mood Chulinda [facility] Nnabui " Generalized Anxiety Disorder Questionnaire - Question 2 0 Priya Mars " Generalized Anxiety Disorder Questionnaire - Question 1 0 Priya Mars assessment of judgment and insight E&M intact Edward Buddhist Nnabui " mental status examination: orientation E&M oriented to time, place, and person Chulinda Buddhist Nnabuife " assessment of mood and affect E&M anxious, depressed mood Chuvidhyalinda Buddhist Nnabuife " Generalized Anxiety Disorder Questionnaire - Question 2 0 Alayna Chapman " Generalized Anxiety Disorder Questionnaire - Question 1 0 Alayna Chapman assessment of judgment and insight E&M intact [facility] " mental status examination: orientation E&M oriented to time, place, and person [facility] " assessment of mood and affect E&M anxious, depressed mood [facility] " Generalized Anxiety Disorder Questionnaire - Question 2 0 Stephanie Isabel " Generalized Anxiety Disorder Questionnaire - Question 1 0 Stephanie Isabel assessment of judgment and insight E&M intact [facility] " mental status examination: orientation E&M oriented to time, place, and person [facility] " assessment of mood and affect E&M anxious, depressed mood [facility] " Generalized Anxiety Disorder Questionnaire - Question 2 0 Alaynataye Krausa " Generalized Anxiety Disorder Questionnaire - Question 1 0 Alaynataye Chapman assessment of judgment and insight [facility] mental status examination: orientation E&M oriented to time, place, and person [facility] " assessment of mood and affect E&M anxious, depressed mood [facility] " Generalized Anxiety Disorder Questionnaire - Question 2 0 Alayna Chapman " Generalized Anxiety Disorder Questionnaire - Question 1 0 Alaynataye Chapman assessment of judgment and insight E&M intact [facility] " mental status examination: orientation E&M oriented to time, place, and person [facility] " assessment of mood and affect E&M anxious, depressed mood [facility] " Generalized Anxiety Disorder Questionnaire - [...] neat [place] " delusion No [place] " hallucinations none [place] assessment of mood and affect E&M anxious, depressed mood [facility] " assessment of judgment and insight E&M intact [facility] " mental status examination: orientation E&M oriented to time, place, and person [facility] " If any problems checked, how difficult have these problems made it for you to do your work, take care of things at home, or get along with other people (GAD7, question 8) 2 Setphanie Byers " Generalized Anxiety Disorder Questionnaire - [...] assessment of judgment and insight E[facility] intact [facility] " mental status examination: orientation E&M oriented to time, place, and person [facility] " assessment of mood and affect E&M no depression, anxiety, or agitation [facility] " Generalized Anxiety Disorder Questionnaire - Question 2 0 Stephanie Isabel " Generalized Anxiety Disorder Questionnaire - Question 1 0 Stephanie Isabel Generalized Anxiety Disorder Questionnaire - Question 2 0 Nupur Chong " Generalized Anxiety Disorder Questionnaire - Question 1 0 Nupur Chong mental status examination: recall E&M intact for recent and remote events [facility] " assessment of judgment and insight E&M intact [facility] " mental status examination: orientation E&M oriented to time, place, and person [facility] " assessment of mood and affect E&M no depression, anxiety, or agitation [facility] " Generalized Anxiety Disorder Questionnaire - Question [...] E&M intact for recent and remote events [facility] " mental status examination: orientation E&M oriented to time, place, and person [facility] " assessment of judgment and insight E&M intact [facility] " assessment of mood and affect E&M no depression, anxiety, or agitation [facility] " Generalized Anxiety Disorder Questionnaire - Question 2 0 Taina Gu " Generalized Anxiety Disorder Questionnaire - Question 1 0 Taina Gu Generalized Anxiety Disorder Questionnaire - Question 2 0 Francesca Gamino " Generalized Anxiety Disorder Questionnaire - Question 1 0 Francesca Gamino assessment of judgment and insight [facility] intact [facility] " assessment of mood and affect E&M no depression, anxiety, or agitation [facility] " If any problems checked, how [...] Covered republican ID [employer] Medicare HMO Medicare O [id number] ADVANCE DIRECTIVES No Information Available TREATMENT PLAN [...] - - Est Patient Exp Problem - 07098 Est Patient Exp Problem - 66459 Est Patient Exp Problem - 60874 Finger Stick Glucose Est Patient Exp Problem - 63945 Est Patient Exp Problem - 50715 Est Patient Detailed - 05608 New Patient Intermediate Opth - 38311 Finger Stick Glucose Ear Irrigation Est Patient Exp Problem - 85045 Est Patient Exp Problem - 23776 Retinal Screening Est Patient Well Exam (40 - 64 Yrs) - 26434 Est Patient Detailed - 73634 Est Patient Exp Problem - 04499 Est Patient Exp Problem - 55656 New Patient Comprehensive - 64747 Glucose Stick Est Patient Exp Problem - 04536 Glucose Stick Est Patient Exp Problem - 46476 Prescription Assistance (Non-HIV) Glucose Stick Est Patient Exp Problem - 85655 Endocrinology - Adult - C HEMOGLOBIN A1C - In House Est Patient Exp Problem - 21144 Est Patient Detailed - 77642 Est Patient Exp Problem - 93661 Est Patient Detailed - 83903 [facility] Assessment - Calculation Clerk Diagnostic evaluation (no medical) - 74708 Integrated Behavioral Health Assessment (IB) Est Patient Exp Problem - 92940 Est Patient Detailed - 58073 Ofc Vst, Est Level V Est Patient Exp Problem - 42340 Est Patient Exp Problem - 82346 Ofc Vst, Est Level IV Est Patient Exp Problem - 82415 Ofc Vst, Est Level V Est Patient Exp Problem - 36453 Est Patient Detailed - 88742 Est Patient Detailed - 84114 ALBUTEROL INHAL ADMIN THRU DME 1MG Est Patient Detailed - 92837 Est Patient Exp Problem - 76035 Est Patient Exp Problem - 08920 Ear Irrigation Est Patient Exp Problem - 99534 Ofc Vst, Est Level III Est Patient Exp Problem - 74463 HISTORY OF PROCEDURES Procedure Date Procedure Name Provider Procedure Notes Status Finger Stick Glucose Gill Villafuerte completed New Patient Intermediate Opt - 95802 Satinder Harman completed Finger Stick Glucose Satinder Harman completed Ear Irrigation Satinder Harman completed Glucose Stick Gill Villafuerte completed Glucose Stick Satinder Harman completed Glucose Stick Gill Villafuerte completed HEMOGLOBIN A1C - In House Comfort rTevino completed [facility] Assessment - Calculation Clerk [place] completed Diagnostic evaluation (no medical) - 31333 [place] completed ALBUTEROL INHAL ADMIN THRU DME 1MG Deniz Brown completed Ear Irrigation Thea Junior completed GOALS No Information Available [facility] No Information Available
--- OUTSIDE RECORDS SUMMARY | 2019-09-25 17:55 | XMS REPORT ---
Author Author Admin, [place] Organization Unknown Address Unknown Phone Unavailable PROBLEMS [...] active Edward Roa Nnabuife Abdominal distension active Abisaijose j Moravian Nnabuife Mood Disorder, NOS active Toma Woods Suicidal ideation active Edward Roa Nnabuife Depression, major active Abisaijose j Moravian Nnabuife COPD with exacerbation active Edward Roa Nnabuife BMI 50.0-59.9 completed - Tiny Vazquez Mckeon Chronic bronchitis active Abisaijose j Moravian N[place] Breast abnormal findings active Abisaijose j Crispin Whiteabuife Otitis media, acute completed - Titicleveland [...] Location Encounter Diagnosis - Ambulatory Encounter Edward Whiteabuife Edward Roa Nnabuife LinkLogic [facility] UNK - Ambulatory Encounter Kimberly Jorgensen [facility] UNK - Ambulatory Encounter Satinder Harman [facility] UNK - Ambulatory Encounter Edward Moravian Nnabuife Edward Moravian Nnabuife LinkLogic [facility] UNK - Ambulatory Encounter Kimberly Jorgensen Vanessa Aguilerala Ghulam [facility] Contact Center UNK - Ambulatory Encounter Kimberly Jorgensen [facility] UNK - Ambulatory Encounter Fax Status [facility] UNK - Ambulatory Encounter Fax Status [facility] UNK - Ambulatory Encounter Fax Status [facility] UNK - Ambulatory Encounter Gill Magañaian Nnabuife Edward Moravian Nnabuife [facility] UNK - Ambulatory Encounter Kimberly Jorgensen [facility] UNK - Ambulatory Encounter Kimberly Jorgensendelaney Leon Moravian Nnabuife Edward Moravian Nnabuife Ofelia Ghulam Maikel [facility] UNK - Ambulatory Encounter Kimberly Watkinsdelaney Denise Pace [facility] Services Contact Center UNK - Ambulatory Encounter Edward Moravian Nnabuife Edward Moravian Nnabuife [facility] UNK - Ambulatory Encounter Edward Moravian Nnabuife Edward Moravian Nnabuife [facility] UNK - Ambulatory Encounter Edward Moravian Cindyabuife Edward Moravian Nnabuife [facility] UNK - Ambulatory Encounter Gill Whiteabjaimie Odonnell [facility] Constipation, drug induced - Ambulatory Encounter Edward Marroquin MedAdherence, [facility] UNK - Ambulatory Encounter Edward Whiteabjaimie Langley MedAdherence [facility] Services UNK - Ambulatory Encounter Violette Rome Martin [facility] UNK - Ambulatory Encounter [facility] - Ambulatory Encounter LSJ Lab Support Desktop LinkLogic Edward Whiteabjaimie [facility] UNK - Ambulatory Encounter Fax Status LinkLogic [facility] UNK - Ambulatory Encounter Fax Status [facility] UNK - Ambulatory Encounter Fax Status LinkLogic [facility] Services UNK - Ambulatory Encounter Edward Whiteabjaimie Whiteabjaimie [facility] UNK - Ambulatory Encounter Edward Whiteabjaimie Whiteabuinasir [facility] UNK - Ambulatory Encounter Edward Whitetravis Roa Nnabuife [facility] UNK - Ambulatory Encounter Satinder Whiteabuinasir Whiteabuinasir Diana [facility] Hordeolum, internal - Ambulatory Encounter Comfort Marroquin MedAdherence, [facility] UNK - Ambulatory Encounter Comfort Langley MedAdherence [facility] UNK - Ambulatory Encounter Kimberly Watkinsdelaney Gagnon [place] UNK - Ambulatory Encounter Gill Marroquin MedAdherence, [facility] UNK - Ambulatory Encounter Edward Whiteabuinasir Leon Moravian Nnabuife [facility] UNK - Ambulatory Encounter Edward Whiteabuife Edward Moravian Nnabuife [facility] UNK - Ambulatory Encounter Gill Whiteabuinasir Whiteabuinasir Orozco Lebron [facility] UNK - Ambulatory Encounter Comfort Ellsworth MedAdherence, [facility] UNK - Ambulatory Encounter Comfort Marroquin MedAdherence, [facility] UNK - Ambulatory Encounter Edward Roa Nnabuinasir Leon Moravian Nnabuife [facility] UNK - Ambulatory Encounter Comfort Hernandez MedAdherence [facility] UNK - Ambulatory Encounter Fax Status LinkLogic [facility] UNK - Ambulatory Encounter Fax Status LinkLogic [facility] UNK - Ambulatory Encounter Fax Status LinkLogic [facility] UNK - Ambulatory Encounter Edward Roa Nnabuife Edward Roa Nnabuife LinkLogic [facility] UNK - Ambulatory Encounter Satinder Roa Nnabuife Edward Roa Nnabuife [facility] Hypokalemia, mild - Ambulatory Encounter Edward Roa Nnabuife Edward Roa Nnabuife [facility] UNK - Ambulatory Encounter LSJ Lab Support Desktop LinkLogic Edward Roa Nnabuife Edward Roa Nnabuife [facility] UNK - Ambulatory Encounter Fax Status LinkLogic [facility] UNK - Ambulatory Encounter Fax Status LinkLogic [facility] UNK - Ambulatory Encounter Fax Status LinkLogic [facility] UNK - Ambulatory Encounter Fax Status LinkLogic [facility] UNK - Ambulatory Encounter Edward Roa Nnabuife Edward Roa Nnabuife [facility] UNK - Ambulatory Encounter Edward Whiteabuinasir Roa Nnabuife [facility] UNK - Ambulatory Encounter Edward Moravian Nnabuife Edward Moravian Nnabuife [facility] UNK - Ambulatory Encounter Satinder Adrianaxel Klein Stephanie Espitia Castillo Leon Moravian Nnabuife Edward Moravian Nnabuife Sheryl Odonnell [facility] UNK - Ambulatory Encounter Comfort Pedersen MedAdherence [facility] UNK - Ambulatory Encounter Comfort Christianson MedAdherence [facility] UNK - Ambulatory Encounter Tiara Christianson MedAdherence [facility] UNK - Ambulatory Encounter Edward Roa Nnabuife Edward Roa Nnabuife LinkLogic [facility] UNK - Ambulatory Encounter Osiris Gordon LinkLogic [facility] UNK - Ambulatory Encounter Edward Roa Nnabuife Edward Moravian Nnabuife LinkLogic [facility] UNK - Ambulatory Encounter Comfort Christianson MedAdherence [facility] UNK - Ambulatory Encounter Edward Moravian Nnabuife Edward Moravian Nnabuife [facility] UNK - Ambulatory Encounter Chuodilia Moravian Nnabuife Edward Moravian Nnabuife [facility] UNK - Ambulatory Encounter Chuodilia Moravian Nnabuife Chukwuemeka Moravian Nnabuife [facility] UNK - Ambulatory Encounter Satinder Roa Nnabuife Edward Roa Nnabuife [facility] Chronic pain syndrome - Ambulatory Encounter Edward Whiteabuinasir Roa Nnabuife [facility] UNK - Ambulatory Encounter LSJ Lab Support Desktop LinkLogic Edward Moravian Nnabuife Edward Roa Nnabuife [facility] UNK - Ambulatory Encounter Edward Whiteabjaimie Roa Nnabuife [facility] UNK - Ambulatory Encounter Edward Whiteabjaimie Roa Nnabuife [facility] UNK - Ambulatory Encounter Comfort Whiteabuinasir Whiteabuinasir Ac [facility] Well woman examCerumen impaction, bilateral - Ambulatory Encounter Satinder Christianson MedAdherence [facility] UNK - Ambulatory Encounter Satinder Christianson MedAdherence [place] Gagnon [place] UNK - Ambulatory Encounter Satinder Christianson MedAdherence Edward Roa Nnabjaimie Whiteabuinasir [place] Gagnon [facility] UNK - Ambulatory Encounter Satinder Christianson MedAdherence [facility] UNK - Ambulatory Encounter Tiara Christianson MedAdherence Alayna Riccardo [facility] Services Contact Center UNK - Ambulatory Encounter Edward Whiteabuife Edward Roa Nnabuife LinkLogic [facility] UNK - Ambulatory Encounter Edward Whiteabuinasir Roa Nnabuife LinkLogic [facility] UNK - Ambulatory Encounter Satinder Christianson MedAdherence [facility] UNK - Ambulatory Encounter Satinder Harman [facility] UNK - Ambulatory Encounter Fax Status [facility] UNK - Ambulatory Encounter Fax Status [facility] UNK - Ambulatory Encounter Fax Status LinkLogSt[facility] UNK - Ambulatory Encounter Fax Status LinkLogSt[facility] UNK - Ambulatory Encounter Fax Status [facility]LogSt[facility] UNK - Ambulatory Encounter Fax Status [facility] UNK - Ambulatory Encounter Satinder Montemayor [facility] UNK - Ambulatory Encounter Tiara Christianson MedAdherfaheem Engel [facility] Services Contact Center UNK - Ambulatory Encounter Kimberly Whiteabuife Gautamwlinda Whietabuinasir [facility] Contact Center UNK - Ambulatory Encounter Satinder Christianson MedAdherence [facility] UNK - Ambulatory Encounter Satinder Harman [facility]Log[facility] UNK - Ambulatory Encounter Fax Status [facility] Services UNK - Ambulatory Encounter Lo Esquivel Tiara Christianson [facility] UNK - Ambulatory Encounter Chuodilia Moravian Nnabuife Edward Moravian Nnabuife LinkLogic [facility] UNK - Ambulatory Encounter Chuodilia Moravian Nnabuife Edward Moravian Nnabuinasir LinkLog [facility] UNK - Ambulatory Encounter Chuodilia Moravian Nnabuife Edward Moravian Nnabuife [facility] UNK - Ambulatory Encounter Chuodilia Moravian Nnabuife Edward Moravian Nnabuife [facility] UNK - Ambulatory Encounter Chuodilia Moravian Nnabuife Edward Moravian Nnabuife [facility] UNK - Ambulatory Encounter Lo Esquivel Stephanie Leon Moravian Nnabuife Edward Moravian Nnabuife [facility] BMI 60.0-69.9, adultBMI 50.0-59.9 - Ambulatory Encounter Alayna Nava [facility] UNK - Ambulatory Encounter Kayla Lipscomb [facility] UNK - Ambulatory Encounter Kayla Ruel [facility] UNK - Ambulatory Encounter Edward Moravian Nnabuife Ewdard Moravian Nntravis Lipscomb [facility] UNK - Ambulatory Encounter Satinder Christianson MedAdherence Kayla Reich [facility] UNK - Ambulatory Encounter Fax Status [facility]LogSt[facility] UNK - Ambulatory Encounter Fax Status [facility] UNK - Ambulatory Encounter Fax Status [facility]LogSt[facility] UNK - Ambulatory Encounter Fax Status LinkLogOn license of [facility] Services UNK - Ambulatory Encounter Bhavya Pedersen MedAdherfaheem [facility] UNK - Ambulatory Encounter Edward Delgado [facility] UNK - Ambulatory Encounter Edward [facility] UNK - Ambulatory Encounter Edward Delgado [facility] UNK - Ambulatory Encounter Comfort Will [facility] Dyspnea at restCHF exacerbation - Ambulatory Encounter Tiny Vazquez Mckeon Tiny Vazquez Mckeon [facility] UNK - Ambulatory Encounter Tiny Vazquez Mckeon Tiny Vazquez Mckeon [facility] BMI 50.0-59.9BMI 60.0-69.9, adult - Ambulatory Encounter Kayal Ruel [facility] UNK - Ambulatory Encounter Satinder Christianson MedAdherence Francesca Potts [facility] Contact Center UNK - Ambulatory Encounter Violette Yuri Lipscomb [facility] UNK - Ambulatory Encounter Chukwuemejose j Moravian Nnabuife Chukwuemeka Moravian Nnabuife [facility] UNK - Ambulatory Encounter Chukwuemejose j Moravian Nnabuife Chukwuemeka Moravian Nnabuife [facility] UNK - Ambulatory Encounter Chukwlinda Moravian Nnabuife Chukwuemeka Moravian Nnabuife [facility] UNK - Ambulatory Encounter Chukwuemejose j Moravian Nnabuife Chukwuemeka Moravian Nnabuife [facility] UNK - Ambulatory Encounter Chukwuemejose j Moravian Nnabuife Chukwuemeka Moravian Nnabuife [facility] UNK - Ambulatory Encounter Gill Klein Chukshericeuemejose j Moravian Nnabuife Chukwuemejose j Moravian Nnabuife Violette Yuri Will [facility] Acute upper respiratory infection - Ambulatory Encounter Bhavya Pedersen [facility] UNK - Ambulatory Encounter [facility]atinder [facility] - Ambulatory Encounter Bhavya Nuvia [facility] Contact [facility] UNK - Ambulatory Encounter Comfort Trevino LinkLogic [facility] UNK - Ambulatory Encounter Norma Stacey [facility] UNK - Ambulatory Encounter Fax Status LinkLogOn license of [facility] Services UNK - Ambulatory Encounter Fax Status [facility] UNK - Ambulatory Encounter Fax Status [facility] UNK - Ambulatory Encounter Alayna Krausa [facility] UNK - Ambulatory Encounter Chuodilia Moravian Nnabuife Edward Moravian Nnabuife [facility] UNK - Ambulatory Encounter Chuodilia Moravian Nnabuife Edward Moravian Nnabuife [facility] UNK - Ambulatory Encounter Chuodilia Moravian Nnabuife Bryanmejose j Moravian Nnabuife [facility] UNK - Ambulatory Encounter Satinder Leon Moravian Nnabuife Gautamwfabiánmejose j Moravian Nnabuife Priya Mars [facility] UNK - Ambulatory Encounter Parris Oleary [facility] UNK - Ambulatory Encounter Chuodilia Moravian Nnabuife Edward Moravian Nnabuife LinkLogic [facility] UNK - Ambulatory Encounter Bhavya Green Staceycindy Leon Moravian Nnabuife Bryanmejose j Moravian Nnabuife Raysa Potts [facility] Contact Center UNK - Ambulatory Encounter Edward Moravian Nnabuife Edward Moravian Nnabuife [facility] UNK - Ambulatory Encounter Chuvidhyawallanjose j Moravian Nnabuife Gautamwuekathya Moravian Nnabuife [facility] UNK - Ambulatory Encounter Chuvidhyawlinda Moravian Nnabuife Jamarkwuekathya Moravian Nnabuife [facility] UNK - Ambulatory Encounter Churameshjose j Moravian Nnabuife Chuvidhyawuekathya Moravian Nnabuife [facility] UNK - Ambulatory Encounter Gill Florezwuemejose j Moravian Nnabuife Gautamwuekathya Moravian Nnabuife [facility] UNK - Ambulatory Encounter Bhavya Venturavino José Miguel [facility] UNK - Ambulatory Encounter Kayla Serrano [facility] UNK - Ambulatory Encounter Edward Moravian Nnabuife Gautamwuekathya Moravian Nnabuife [facility] UNK - Ambulatory Encounter Tab Chang [facility] UNK - Ambulatory Encounter Edward Moravian Nnabuife Gautamwuekathya Moravian Nnabuife [facility] UNK - Ambulatory Encounter Edward Moravian Nnabuife Jamarkwuekathya Moravian Nnabuife [facility] UNK - Ambulatory Encounter LSJ Lab Support Desktop LinkLogic Tab Chang Gautamwuekathya Moravian Nnabuife Jamarkwuekathya Moravian Nnabuife [facility] UNK - Ambulatory Encounter Chukwuemeka Moravian Nnabuife Chukwuemeka Moravian Nnabuife [facility] UNK - Ambulatory Encounter Chukwuemeka Moravian Nnabuife Chukwuemeka Moravian Nnabuife [facility] UNK - Ambulatory Encounter Chukwuemeka Moravian Nnabuife Chukwuemeka Moravian Nnabuife [facility] UNK - Ambulatory Encounter Comfort Christianson [facility] Chukwuemejose j Moravian Nnabuife Chukwuemeka Moravian Nnabuife Marielena Reich [facility] Screening for diabetes mellitusScreening for lipid disorder - Ambulatory Encounter Chukwuemeka Moravian Nnabuife Chukwuemeka Moravian Nnabuife [facility] GERD - Ambulatory Encounter Chukwuemeka Moravian Nnabuife Chukwuemeka Moravian Nnabuife Stephanie Isabel [facility] UNK - Ambulatory Encounter Chukwuemeka Moravian Nnabuife Chukwuemeka Moravian Nnabuife [facility] UNK - Ambulatory Encounter Tab Gu Chukwuemeka Moravian Nnabuife Chukwuemeka Moravian Nnabuife Vivian Pope Usman [facility] Contact Center UNK - Ambulatory Encounter Chukwuemeka Moravian Nnabuife Chukwuemeka Moravian Nnabuife [facility] UNK - Ambulatory Encounter Chukwuemeka Moravian Nnabuife Chukwuemeka Moravian Nnabuife [facility] UNK - Ambulatory Encounter Chuodilia Moravian Nnabuife Edward Moravian Nnabuife [facility] UNK - Ambulatory Encounter Comfort Leon Moravian Nnabuife Edward Moravian Nnabuife [facility] Diabetes mellitus type II - Ambulatory Encounter Chukkavin Moravian Nnabuife Edward Moravian Nnabuife LinkLogic [facility] UNK - Ambulatory Encounter Chukkavin Moravian Nnabuife Edward Moravian Nnabuife LinkLogic [facility] UNK - Ambulatory Encounter Loly Winslow [facility] UNK - Ambulatory Encounter Chukkavin Moravian Nnabuife Edward Moravian Nnabuife LinkLogic [facility] UNK - Ambulatory Encounter Chukkavin Moravian Nnabuife Edward Moravian Nnabuife [facility] UNK - Ambulatory Encounter Chuodilia Moravian Nnabuife Edward Moravian Nnabuife [facility] UNK - Ambulatory Encounter Chukkavin Moravian Nnabuife Edward Moravian Nnabuife [facility] UNK - Ambulatory Encounter Chukkavin Moravian Nnabuife Edward Moravian Nnabuife [facility] UNK - Ambulatory Encounter Satinder Leon Moravian Nnabuife Edward Moravian Nnabuife [facility] UNK - Ambulatory Encounter Tiara Christianson [facility] CenterAdherWay[facility] System[facility] UNK - Ambulatory Encounter Bhavya Pedersen [facility] CenterAdherHospital [facility] UNK - Ambulatory Encounter Bhavya Pedersen [facility] CenterAdherPine Rest Christian Mental Health ServicesLogOrthopaedic Hospital [facility] Gl[facility]aleo [facility] UNK - Ambulatory Encounter Titi Kaitlynn Titi Kaitlynn [facility] CenterLogDel[facility] Psychiatric CenterC[facility] UNK - Ambulatory Encounter Chukkavin Moravian Nnabuife Edward Moravian Nnabuife [facility] CenterLogDelaware Psychiatric CenterC[facility] UNK - Ambulatory Encounter Chuodilia Moravian Nnabuife Edward Moravian Nnabuife [facility] CenterLogDelaware Psychiatric CenterC[facility] UNK - Ambulatory Encounter Chuodilia Moravian Nnabuife Edward Moravian Nnabuife [facility] UNK - Ambulatory Encounter Chukkavin Moravian Nnabuife Gautamwlinda Moravian Nnabuife [facility] UNK - Ambulatory Encounter Chuodilia Moravian Nnabuife Edward Moravian Nnabuife [facility] UNK - Ambulatory Encounter Chuodilia Moravian Nnabuife Edward Moravian Nnabuife [facility] UNK - Ambulatory Encounter Comfort Leon Moravian Nnabuife Edward Moravian Nnabuife [facility] Abdominal distensionAbdominal pain, chronicAscitesUrinary retention - Ambulatory Encounter Tiara Christianson MedAdherence [facility] UNK - Ambulatory Encounter Tiara Sammy MedAdherence Loly Puckett [facility] Services UNK - Ambulatory Encounter Tiara Sammy MedAdherence LinkLogic [facility] Practice UNK - Ambulatory Encounter Comfort Trevino [facility] Practice UNK - Ambulatory Encounter Mae Rashaun [facility] UNK - Ambulatory Encounter Fax Status LinkLogic [facility] UNK - Ambulatory Encounter Fax Status [facility]LogSt. [facility] UNK - Ambulatory Encounter Fax Status LinkLogic [facility] Services UNK - Ambulatory Encounter Fax Status LinkLogic [facility] Services UNK - Ambulatory Encounter Fax Status LinkLogic [facility] Services UNK - Ambulatory Encounter Fax Status LinkLogic [facility] Services UNK - Ambulatory Encounter Edward Roa Nnabuife Gautamwfabiánmejose j Moravian Nnabuife [facility] UNK - Ambulatory Encounter Chuodilia Moravian Nnabuife Jamarkwlinda Moravian Nnabuife [facility] UNK - Ambulatory Encounter Chuodilia Moravian Nnabuife Gautamwlinda Moravian Nnabuife [facility] UNK - Ambulatory Encounter Toma Woods [facility] Health Mood Disorder, NOS - Ambulatory Encounter Lo Leon Moravian Nnabuife Edward Magañaian Nnabuife Vivian Matthews [facility] Depression, majorSuicidal ideation - Ambulatory Encounter Comfort Trevino LinkLogDelaware Psychiatric CenterCrock[facility] UNK - Ambulatory Encounter Tiara Bob [facility] UNK - Ambulatory Encounter Bhavya Pedersen MedAdherHospital Sisters Health [facility] UNK - Ambulatory Encounter Bhavya Pedersen MedAdherence LinkLogDelaware Psychiatric CenterCrockett [facility] UNK - Ambulatory Encounter Edward Magañaian Nnabuife Edward Moravian Nnabuife [facility] UNK - Ambulatory Encounter Edward Moravian Nnabuife Edward Moravian Nnabuife [facility] UNK - Ambulatory Encounter Chuodilia Moravian Nnabuife Edward Moravian Nnabuife [facility] UNK - Ambulatory Encounter Chuodilia Moravian Nnabuife Edward Moravian Nnabuife [facility] UNK - Ambulatory Encounter Chuodilia Moravian Nnabuife Edward Moravian Nnabuife [facility] UNK - Ambulatory Encounter Gill Leon Moravian Nnabuife Edward Moravian Nnabuife [facility] UNK - Ambulatory Encounter Loly Winslow [facility] UNK - Ambulatory Encounter Tiara Palacio [facility] UNK - Ambulatory Encounter Chukwuemeka Moravian Nnabuife Chukwuemeka Moravian Nnabuife [facility] UNK - Ambulatory Encounter Bhavya Pedersen MedAdherence [facility] UNK - Ambulatory Encounter Bhavya Pedersen MedAdherence LinkLogic [facility] UNK - Ambulatory Encounter Chukwuemejose j Moravian Nnabuife Chukwuemeka Moravian Nnabuife Tab Matthews [facility] UNK - Ambulatory Encounter Comfort Trevino LinkLogHCA Midwest DivisionCrockett [facility] UNK - Ambulatory Encounter Chukwuemejose j Moravian Nnabuife Chukwuemeka Moravian Nnabuife [facility] UNK - Ambulatory Encounter Chukwuemeka Moravian Nnabuife Chukwuemeka Moravian Nnabuife [facility] UNK - Ambulatory Encounter Chukwuemeka Moravian Nnabuife Chukwuemeka Moravian Nnabuife [facility] UNK - Ambulatory Encounter Chukwuemeka Moravian Nnabuife Chukwuemeka Moravian Nnabuife [facility] UNK - Ambulatory Encounter Comfort Chong Chukwuemejose j Moravian Nnabuife Chukwuemeka Moravian Nnabuife [facility] COPD with exacerbation - Ambulatory Encounter Tiara Christianson MedAdherence [facility] UNK - Ambulatory Encounter Tiara Christianson MedAdherence Loly [facility]ettBanner Services UNK - Ambulatory En[facility] UN[facility] - Ambulatory Encounter Edward Roa Nnabuife Edward Moravian Nnabuife [facility] UNK - Ambulatory Encounter Edward Roa Nnabuinasir Leon Moravian [facility] UNK - Ambulatory Encounter Gill Roldankwuemejose j Moravian Nnabuife Edward [facility]avian [facility] UNK - Ambulatory Encounter Loly Winslow Donna [facility] UNK - Ambulatory Encounter Edward Whiteabuinasir Leon Moravian Nnabuife [facility] UNK - Ambulatory Encounter Loly [facility] - Ambulatory Encounter Fax Status LinkLogic [facility] UNK - Ambulatory Encounter Fax Status [facility] - Ambulatory Encounter Fax Status [facility] UNK - Ambulatory Encounter Fax Status [facility] UNK - Ambulatory Encounter Fax Status [facility] UNK - Ambulatory Encounter Fax Status [facility] UNK - Ambulatory Encounter Titi K[facility]lynn [facility] UN[facility] - Ambulatory Encounter Titi Kaitlynn Titi [facility] UNK - Ambulatory Encounter Titi Kaitlynn Titi [facility] UNK - Ambulatory Encounter Lo Gu Titi [facility] MUSCLE SPASMEAR PAIN, RIGHTCandidal vaginitisOtitis media, acute - Ambulatory Encounter Satinder Gu [facility] Contact [facility] UNK - Ambulatory Encounter Fax Status [facility] Services UNK - Ambulatory Encounter Fax Status [facility] UNK - Ambulatory Encounter Fax Status [facility] UNK - Ambulatory Encounter Bhavya Pedersen MedAdherfaheem Palacio [facility] UNK - Ambulatory Encounter Chukwuemejose j [place] [place] Jamarkwuemejose j [facility] UNK - Ambulatory Encounter Satinder Florezwuemejose j [facility] [place] Jamarkwuemejose j [facility] [place] Ayanna Matthews [facility] Breast abnormal findingsChronic bronchitisBMI 50.0-59.9 - Ambulatory Encounter Comfort Trevino [facility] UNK - Ambulatory Encounter Tiara Christianson [facility] UNK - Ambulatory Encounter Tiara Christianson MedAdherence [facility] UNK - Ambulatory Encounter Bhavya Pedersen [facility] UNK - Ambulatory Encounter Bhavya Pedersen MedAdherence [facility] UNK - Ambulatory Encounter Maddarryl Esquivel [facility] UNK - Ambulatory Encounter Madjordimitkaylin Esquivel [facility] UNK - Ambulatory Encounter Bhavya CisnerosAdherence [facility] UNK - Ambulatory Encounter Madjordimitkaylin Esquivel [facility] UNK - Ambulatory Encounter Lo Esquivel [facility] UNK - Ambulatory Encounter Madjordimitkaylin Esquivel [facility] UNK - Ambulatory Encounter Nupur Chong [facility] UNK - Ambulatory Encounter Nupur Chong [facility] UNK - Ambulatory Encounter Edwin Umana [facility] UNK - Ambulatory Encounter Edwin Umana [facility] UNK - Ambulatory Encounter Edwin Umana [facility] UNK - Ambulatory Encounter Comfort Gamino [facility] MORBID OBESITYOtitis media, acute - Ambulatory Encounter Fabricio Beard [facility] UNK - Ambulatory Encounter Maddarryl Esquivel [facility] UNK - Ambulatory Encounter Madjordimitkaylin Esquivel [facility] Candidal vaginitis - Ambulatory Encounter Kishanmitkaylin Esquivel [facility] UNK - Ambulatory Encounter Breana Rosario [facility] UNK - Ambulatory Encounter Breana Rosario [facility] UNK - Ambulatory Encounter Mary Soto [facility] UNK - Ambulatory Encounter Fabricio Lonez [facility] UNK - Ambulatory Encounter Bria Young [facility] UNK - Ambulatory Encounter Janet [facility] UNK - Ambulatory Encounter carmela Chirag [facility] UNK - Ambulatory Encounter Gita Maco [facility] UNK - Ambulatory Encounter Comfort Trevino [facility] UNK - Ambulatory Encounter Bhavya Pedersen [facility] UNK - Ambulatory Encounter Comfort Trevino [facility] UNK - Ambulatory Encounter Carmelina Riccardo [facility] [employer] [employer] [facility] UNK - Ambulatory Encounter Jan Johnson [facility] Business [facility] Officer UNK - Ambulatory Encounter Fax Status [facility] UNK - Ambulatory Encounter Fax Status LinkLogic [facility] UNK - Ambulatory Encounter Fax Status LinkLogic [facility] UNK - Ambulatory Encounter Deniz Lira [facility] UNK - Ambulatory Encounter Bhavya Pedersen MedAdherence [facility] UNK - Ambulatory Encounter Comfort Trevino [facility] UNK - Ambulatory Encounter Comfort Trevino [facility] UNK - Ambulatory Encounter Comfort Trevino [facility] UNK - Ambulatory Encounter Fax Status LinkLogic [facility] UNK - Ambulatory Encounter Fax Status LinkLogic [facility] UNK - Ambulatory Encounter Comfort Trevino [facility] UNK - Ambulatory Encounter Fax Status LinkLogic [facility] UNK - Ambulatory Encounter Fax Status LinkLogic [facility] UNK - Ambulatory Encounter Comfort Trevino [facility] UNK - Ambulatory Encounter Comfort Trevino [facility] UNK - Ambulatory Encounter Comfort Trevino [facility] UNK - Ambulatory Encounter Comfort Trevino [facility] UNK - Ambulatory Encounter Kimberly Pedersen MedAdherence Comfort Feldman [facility] UNK - Ambulatory Encounter Kimberly Trevino [facility] UNK - Ambulatory Encounter Tab [facility] - Ambulatory Encounter Fax Status LinkLogic [facility] UNK - Ambulatory Encounter Fax Status Link[facility] UNK - Ambulatory Encounter Fax Status Link[facility] UNK - Ambulatory Encounter Kimberly Trevino [facility] UNK - Ambulatory Encounter Comfort Trevino [facility] UNK - Ambulatory Encounter Comfort TorresLogedward [facility] UNK - Ambulatory Encounter Fax Status [facility] UNK - Ambulatory Encounter Jenny Feldman [facility] UNK - Ambulatory Encounter Fax Status LinkLogOn license [facility] Services UNK - Ambulatory Encounter Fax Status LinkLogic [facility] UNK - Ambulatory Encounter Comfort [facility] UNK - Ambulatory Encounter Kimberly Trevino [facility] UNK - Ambulatory Encounter Comfort Trevino LinkLogedward [facility] UNK - Ambulatory Encounter Jenny Feldman [facility] UNK - Ambulatory Encounter Gosia Trevino [facility] UNK - Ambulatory Encounter Comfort TorresLogedward Mayes [facility] UNK - Ambulatory Encounter Comfort Tellez [facility] CHRONIC OBSTRUCTIVE PULMONARY DISEASE, ACUTE EXACERBATIONCHFSLEEP APNEA - Ambulatory Encounter Gill Villafuerte [facility] UNK - Ambulatory Encounter Fax Status [facility] UNK - Ambulatory Encounter Fax Status Link[facility] UNK - Ambulatory Encounter Fax Status LinkLog[facility] UNK - Ambulatory Encounter Fax Status Link[facility]ic [facility] UNK - Ambulatory Encounter Fax Status LinkLogic [facility] UNK - Ambulatory Encounter Fax Status Link[facility] UNK - Ambulatory Encounter Fax Status LinkLogic [facility] UNK - Ambulatory Encounter Jenny Feldman [facility] UNK - Ambulatory Encounter Thea Tellez Sylvia [facility] LOW BACK PAIN - Ambulatory Encounter Sabra Stephen [facility] UNK - Ambulatory Encounter Sabra Stephen [facility] UNK - Ambulatory Encounter Ernesto Gaffney [facility] DEPENDENT EDEMA, LEGS - Ambulatory Encounter Bhavya Pedersen [facility] UNK - Ambulatory Encounter Bhavya Pedersen [facility] LinkLog[facility] UNK - Ambulatory Encounter Jonelle Brown [facility] UNK - Ambulatory Encounter Jonelle Brown [facility] UNK - Ambulatory Encounter Jonelle Brown [facility] UNK - Ambulatory Encounter Jonelle Brown [facility] UNK - Ambulatory Encounter Jonelle Brown [facility] UNK - Ambulatory Encounter Malena Isabel [facility] UNK - Ambulatory Encounter Ernesto Matthews [facility] EAR PAIN, RIGHTBLURRED VISIONHEARING DEFICIT - Ambulatory Encounter Anglican Preload LinkLogic [facility] UNK - Ambulatory Encounter Anglican Preload [facility] UNK - Ambulatory Encounter Anglican Preload [facility]ic [facility] UNK - Ambulatory Encounter Anglican Preload [facility] UNK - Ambulatory Encounter Anglican Preload [facility] UNK - Ambulatory Encounter Anglican Preload [facility] UNK - Ambulatory Encounter Anglican Preload [facility] UNK - Ambulatory Encounter Anglican Preload [facility] UNK - Ambulatory Encounter Anglican Preload [facility] UNK - Ambulatory Encounter Anglican Preload [facility] UNK - Ambulatory Encounter Anglican Preload [facility] UNK - Ambulatory Encounter Anglican Preload [facility] UNK - Ambulatory Encounter Anglican Preload [facility] UNK - Ambulatory Encounter Anglican Preload [facility] UNK - Ambulatory Encounter Anglican Preload [facility] UNK - Ambulatory Encounter Anglican Preload [facility] UNK - Ambulatory Encounter Anglican Preload [facility] UNK - Ambulatory Encounter Anglican Preload [facility] UNK - Ambulatory Encounter Anglican Preload [facility] UNK - Ambulatory Encounter Anglican Preload [facility] UNK - Ambulatory Encounter Anglican Preload [facility] UNK - Ambulatory Encounter Anglican Preload [facility] UNK - Ambulatory Encounter Anglican Preload [facility] UNK - Ambulatory Encounter Anglican Preload [facility] UNK - Ambulatory Encounter Anglican Preload [facility] UNK - Ambulatory Encounter Anglican Preload [facility] UNK - Ambulatory Encounter Anglican Preload [facility] UNK - Ambulatory Encounter Anglican Preload [facility] UNK - Ambulatory Encounter Anglican Preload [facility] UNK - Ambulatory Encounter Anglican Preload [facility] UNK - Ambulatory Encounter Anglican Preload [facility] UNK - Ambulatory Encounter Anglican Preload [facility] UNK - Ambulatory Encounter Anglican Preload [facility] UNK - Ambulatory Encounter Anglican Preload LinkLogic [facility] UNK - Ambulatory Encounter Anglican Preload LinkLogic [facility] UNK - Ambulatory Encounter Anglican Preload [facility]Log[facility] UNK - Ambulatory Encounter Anglican Preload LinkLogic [facility] UNK - Ambulatory Encounter Anglican Preload [facility] UNK - Ambulatory Encounter Anglican Preload [facility] UNK - Ambulatory Encounter Anglican Preload Link[facility]ic [facility] UNK - Ambulatory Encounter Anglican Preload [facility] UNK - Ambulatory Encounter Anglican Preload [facility] UNK - Ambulatory Encounter Anglican Preload [facility] UNK - Ambulatory Encounter Anglican Preload [facility] UNK - Ambulatory Encounter Anglican Preload [facility] UNK - Ambulatory Encounter Anglican Preload [facility] UNK - Ambulatory Encounter Anglican Preload [facility] UNK - Ambulatory Encounter Anglican Preload [facility] UNK - Ambulatory Encounter Anglican Preload [facility] UNK - Ambulatory Encounter Anglican Preload [facility] UNK - Ambulatory Encounter Anglican Preload [facility] UNK - Ambulatory Encounter Anglican Preload [facility] UNK - Ambulatory Encounter Anglican Preload [facility] UNK - Ambulatory Encounter Anglican Preload [facility] UNK - Ambulatory Encounter Anglican Preload [facility] UNK - Ambulatory Encounter Anglican Preload [facility] UNK - Ambulatory Encounter Anglican Preload [facility] UNK - Ambulatory Encounter Anglican Preload [facility] UNK - Ambulatory Encounter Anglican Preload [facility] UNK - Ambulatory Encounter Anglican Preload [facility] UNK - Ambulatory Encounter Anglican Preload [facility] UNK - Ambulatory Encounter Anglican Preload [facility]ic [facility] UNK - Ambulatory Encounter Anglican Preload [facility] UNK - Ambulatory Encounter Anglican Preload [facility] UNK - Ambulatory Encounter Anglican Preload [facility] UNK - Ambulatory Encounter Anglican Preload [facility] UNK - Ambulatory Encounter Anglican Preload [facility] UNK - Ambulatory Encounter Anglican Preload [facility] UNK - Ambulatory Encounter Sharpe Gulshan Gaffney [facility] UNK - Ambulatory Encounter Anglican Preload [facility] UNK - Ambulatory Encounter Anglican Preload [facility] UNK - Ambulatory Encounter Anglican Preload [facility] UNK - Ambulatory Encounter Anglican Preload [facility] UNK - Ambulatory Encounter Anglican Preload [facility] UNK - Ambulatory Encounter Anglican Preload [facility] UNK - Ambulatory Encounter Anglican Preload [facility] UNK - Ambulatory Encounter Anglican Preload [facility] UNK - Ambulatory Encounter Anglican Preload [facility] UNK - Ambulatory Encounter Anglican Preload [facility] UNK - Ambulatory Encounter Anglican Preload [facility]ic [facility] UNK - Ambulatory Encounter Anglican Preload [facility] UNK - Ambulatory Encounter Anglican Preload [facility] UNK - Ambulatory Encounter Anglican Preload [facility] UNK - Ambulatory Encounter Anglican Preload [facility] UNK - Ambulatory Encounter Anglican Preload [facility] UNK - Ambulatory Encounter Anglican Preload [facility] UNK - Ambulatory Encounter Anglican Preload [facility] UNK - Ambulatory Encounter Anglican Preload [facility] UNK - Ambulatory Encounter Anglican Preload [facility] UNK - Ambulatory Encounter Anglican Preload [facility] UNK - Ambulatory Encounter Anglican Preload LinkLogic [facility] UNK - Ambulatory Encounter Anglican Preload [facility] UNK - Ambulatory Encounter Anglican Preload [facility] UNK - Ambulatory Encounter Anglican Preload [facility] UNK - Ambulatory Encounter Anglican Preload [facility] UNK - Ambulatory Encounter Anglican Preload [facility] UNK - Ambulatory Encounter Anglican Preload [facility] UNK - Ambulatory Encounter Anglican Preload [facility] UNK - Ambulatory Encounter Anglican Preload [facility] UNK - Ambulatory Encounter Anglican Preload [facility] UNK - Ambulatory Encounter Anglican Preload [facility] UNK - Ambulatory Encounter Anglican Preload [facility] UNK - Ambulatory Encounter Anglican Preload [facility] UNK - Ambulatory Encounter Anglican Preload [facility] UNK - Ambulatory Encounter Anglican Preload LinkLogic [facility] UNK - Ambulatory Encounter Anglican Preload [facility] UNK - Ambulatory Encounter Anglican Preload [facility] UNK - Ambulatory Encounter Anglican Preload [facility] UNK - Ambulatory Encounter Anglican Preload [facility] UNK - Ambulatory Encounter Anglican Preload [facility] UNK - Ambulatory Encounter Colleen [facility] UNK - Ambulatory Encounter Sharpe Vo Sharpe [facility] UNK - Ambulatory Encounter Gill Villafuerte [facility] Sharpe Gulshan Sharpe [facility] UNK - Ambulatory Encounter Gill Macias [facility] Annemarie Gulshan Sharpe [facility] UNK - Ambulatory Encounter Gill Villafuerte [facility] UNK - Ambulatory Encounter Annemarie Gulshan Annemarie Pedersen [facility] UNK - Ambulatory Encounter Gill Villafuerte [facility] UNK - Ambulatory Encounter Gill Sharpe Gulshan Sharpe Gulshan Gutierrez [facility] COPDNICOTINE ADDICTIONSARCOIDOSISHYPERTENSIONMUSCLE SPASM - Ambulatory Encounter Ernesto Garcia [facility] V[facility] SIGNS Date Observation Value Provider oxygen [...] Lebron " weight E&M 321.80 lbs. Francesca Diana [...] method used to obtain blood pressure automatic Stpehanie Isabel " Blood Pressure Position 01 sitting Stephanie Isabel " blood pressure, site #1 left arm Stephanie Isabel " blood pressure, diastolic 80 mm[Hg] Stephanie Isabel " blood pressure, systolic 128 mm[Hg] Gautamwlinda Roa Nnabuife " respiratory rate E&M 17 [...] Hafsa Will " height E&M 61 [in_i] Ahfsa Will " height in centimeters E&M 154.94 [...] Will oxygen saturation, oximetry 92 % Priya Mras " blood pressure, diastolic 96 mm[Hg] Priya [...] " height in centimeters E&M 154.94 cm Pryia Mars oxygen saturation, oximetry 93 % Alayna [...] Chapman " weight E&M 333.60 lbs. Alayna Krausa " weight in kilograms E&M 151.64 kg Alayna Krausa " height E&M 61 [in_i] Alayna Chapman " height in centimeters E&M 154.94 cm Alayna Chapman oxygen saturation, oximetry 96 % Vivian Sin " blood pressure, diastolic 76 mm[Hg] Vivian Sin " blood pressure, systolic 118 mm[Hg] Vivian Sin " respiratory rate E&M 22 /min Vivianmario Sin " pulse rate E&M 108 /min Vivian Sin " temperature E&M 98.6 [degF] Vivian Sin " weight E&M 226 lbs. Vivian Sin " weight in kilograms E&M 102.73 kg Vivian Sin " method used to obtain blood pressure automatic Vivian Sin " Blood Pressure Position 01 sitting Vivianmario Sin " blood pressure, site #1 left arm Vivian Sin " temperature site oral Vivianmario Sin " height E&M 61 [in_i] Vivianmario Sin " height in centimeters E&M 154.94 [...] Chong oxygen saturation, oximetry 91 % Taina uG " method used to obtain blood pressure [...] Riccardo " blood pressure, diastolic 81 mm[Hg] Tainakaylin Gu " blood pressure, systolic 162 mm[Hg] [...] " pulse rate E&M 93 /min Francesca Stevenson " temperature E&M 98.3 [degF] Francesca Gamino " method used to obtain blood pressure automatic Francesca Gamino " Blood Pressure Position 01 sitting Francesca Gamino " blood pressure, site #1 right arm Francesca Gamino " temperature site oral Francesca Stevenson " weight E&M 274.38 lbs. Francescalloyd Gamino " weight in kilograms E&M 124.72 kg Francescalloyd Gamino " height E&M 61 [in_i] Francescalloyd Gamino [...] used to obtain blood pressure automatic Rosalinda Wrad " Blood Pressure Position 01 sitting Rosalinda [...] Loly Winslow oxygen saturation, oximetry 98 % Lloy Winslow " method used to obtain blood [...] " oxygen saturation, oximetry 95 % Colleen Gaspars " method used to obtain blood pressure automatic Colleen Gaspars " Blood Pressure Position 01 sitting Colleen Pace " blood pressure, site #1 left arm Colleen Gaspars " blood pressure, diastolic 88 mm[Hg] Colleen Gaspars " blood pressure, systolic 120 mm[Hg] Colleen Gaspars " pulse rate E&M 100 /min Colleen Gaspars " temperature E&M 99.9 [degF] Colleen Gaspars " weight E&M 273.25 lbs. Colleen Gaspars " weight in kilograms E&M 124.20 kg Colleen Gaspars " height E&M 61 [in_i] Colleen Pace [...] method used to obtain blood pressure manual Ohney Brenda " Blood Pressure Position 01 sitting [...] 3.4-10.8 High blood glucose, random 256 mg/dL [facility] " hemoglobin A1C, blood, as % of total hemoglobin 8.3 % [facility] hematocrit, blood 37.6 % Kayla Lipscomb " [...] TABLET BY MOUTH TWICE DAILY Tiara [facility]on [facility] MUCINEX 600 MG ORAL TABLET [...] TABLET BY MOUTH ONCE DAILY Bhavya Pedersen [facility] FREESTYLE LANCETS Use as directed to test blood sugar once daily Bhavya Pedersen [facility] ICD CODE E11.9 FREESTYLE LITE TEST IN VITRO STRIP Use as directed to test blood sugar once daily Bhavya Pedersen [facility] ICD CODE E11.9 FREESTYLE FREEDOM LITE W/DEVICE KIT Use as directed to test blood sugar once daily Bhavya Pedersen [facility] ICD CODE E11.9 BD ULTRA-FINE [...] UNITS 15 MINUTES BEFORE DINNER DAILY [facility] AZ[facility]IN 250 MG ORAL TABLET 2 tablets [...] a Day to administer insulin Tiara Christianson [facility] Updated directions IPRATROPIUM/ ALBUTER EMI USE 1 AMPULE IN NEBULIZER EVERY 4 HOURS NEEDED FOR WHEEZING Tiara Christianson [facility] AZITHROMYCIN 250 MG ORAL TABLET 2 tablets [...] TAKE 1 TABLET BY MOUTH ONCE DAILY Bryankathya Roa Nnabuife PROVENTIL HFA 108 (90 Base) MCG/ACT INHALATION AEROSOL SOLUTION 2 puffs every 4 hours as needed - Comfort Donniejudah ADVAIR DISKUS 250-50 MCG/DOSE INHALATION AEROSOL POWDER BREATH ACTIVATED take 1 puff Twice a Day - Annemarie Gaffney SOCIAL HISTORY Date Observation Value Provider time of call 09/18/2019 10:55 AM Vanessa Padilla drug use, illicit Never Sheryl Odonnell " alcohol use Currently Sheryl Odonnell " social history E&M Single. Not homeless. Born in [facility]. City: [facility]. State: [place]. Not employed. Retired. Highest education level: high school graduate. Gender of partner(s): male. Sheryl Odonnell " social history reviewed E&M reviewed today Sheryl Odonnell " assessment of health literacy (FORMERLY [facility] 2014 Standards, 3C10) Adequate Sheryl Odonnell " [...] history E&M Single. Not homeless. Born in [facility]. City: [facility]. State: [place]. Not employed. Retired. Highest education level: high school graduate. Gender of partner(s): male. Francesca Diana " social history reviewed E&M reviewed today Francesca Diana " assessment of health literacy ([facility] 2014 Standards, 3C10) Adequate Francesca Diana " passive cigarette smoke exposure Yes Francesca Diana " smoking status former smoker Francesca Diana " Exercise Program Referral T Francesca Diana " Weight Management Counseling Provided T Francesca Diana " Nutrition intervention T Francesca Diana time of call 07/18/2019 2:19 PM Eusebia Gagnon social history E&M Single. Not homeless. Born in [facility]. City: [facility]. State: [place]. Not employed. Retired. Highest education level: high school graduate. Gender of partner(s): male. Francesca Diana " social history reviewed E&M reviewed today Francescalloyd Diana " assessment of health literacy ([facility] 2014 Standards, 3C10) Adequate Francesca Diana " passive cigarette smoke exposure Yes Francesca Diana " smoking status former smoker Francesca Ernesto Diana " Exercise Program Referral T Francesca Diana " Weight Management Counseling Provided T Francesca Diana " Nutrition intervention T Francesca Diana Exercise Program Referral Miguel A Harman " Weight Management Counseling Provided Miguel A Harman " Nutrition intervention Miguel A Harman drug use, illicit Never Nupur Chong " alcohol use Currently Nupur Chong " social history E&M Single. Not homeless. Born in [facility]. City: [facility]. State: [place]. Not employed. Retired. Highest education level: high school graduate. Gender of partner(s): male. Nupur Chong " social history reviewed E&M reviewed today Nupur Chong " assessment of health literacy ([facility] 2014 Standards, 3C10) Adequate Nupur Chong " passive cigarette smoke exposure Yes Nupur Chong " smoking status former smoker Nupur Chong time of call 04/02/2019 8:30 AM Daphney Espitia drug use, illicit Never Stephanie Chalo " alcohol use Currently Stephanie Chalo " social history E&M Single. Not homeless. Born in [facility]. City: [facility]. State: [place]. Not employed. Retired. Highest education level: high school graduate. Gender of partner(s): male. Stephanie Isabel " social history reviewed E&M reviewed today Stephanie Isabel " assessment of health literacy ([facility] 2014 Standards, 3C10) Adequate Stephanie Isabel " passive cigarette smoke exposure Yes Stephanie Chalo " smoking status former smoker Stephanie Isabel " Exercise Program Referral T Stephanie Isabel " Weight Management Counseling Provided T Stephanie Isabel " Nutrition intervention T Stephanie Isabel sunscreen use No Gautamkavin Crispin Whiteabuinasir " Exercise Program Referral T Edward Delgado " Weight Management Counseling Provided T Edward Delgado " Nutrition intervention T Edward Delgado " drug use, illicit Never Nupur Chong " alcohol use Currently Nupur Chong " social history E&M Single. Not homeless. Born in [facility]. City: [facility]. State: [place]. Not employed. Retired. Highest education level: high school graduate. Gender of partner(s): male. Nupur Chong " social history reviewed E&M reviewed today Nupur Chong " assessment of health literacy ([facility] 2014 Standards, 3C10) Adequate Nupur Chong [...] history E&M Single. Not homeless. Born in [facility]. City: [facility]. State: [place]. Not employed. Retired. Highest education level: high school graduate. Gender of partner(s): male. Nupur Chong " social history reviewed E&M reviewed today Nupur Chong " assessment of health literacy ([facility] 2014 Standards, 3C10) Adequate Nupur Chong " passive cigarette smoke exposure No Nupur Chong " smoking status former smoker Nupur Chong time of call 11/21/2018 9:45 AM Joaquim Engel drug use, illicit Never Stephanie Chalo " alcohol use Currently Stephanie Chalo " social history E&M Single. Not homeless. Born in [facility]. City: [facility]. State: [place]. Not employed. Retired. Highest education level: high school graduate. Gender of partner(s): male. Stephanie Isabel " social history reviewed E&M reviewed today Stephanie Isabel " assessment of health literacy ([facility] 2014 Standards, 3C10) Adequate Stephanie Isabel [...] history E&M Single. Not homeless. Born in [facility]. City: [facility]. State: [place]. Not employed. Retired. Highest education level: high school graduate. Gender of partner(s): male. Hafsa Will " social history reviewed E&M reviewed today Hafsa Will " assessment of health literacy ([facility] 2014 Standards, 3C10) Adequate Hafsa Will [...] history E&M Single. Not homeless. Born in [facility]. City: [facility]. State: [place]. Not employed. Retired. Highest education level: high school graduate. Gender of partner(s): male. Violette Pool " social history reviewed E&M reviewed today Violette Pool " assessment of health literacy ([facility] 2014 Standards, 3C10) Adequate Violette Pool " passive cigarette smoke exposure No Violette Pool " smoking status former smoker Violette Pool alcohol use Currently Hafsa Will " drug use, illicit Never Hafsa Will " social history E&M Single. Not homeless. Born in [facility]. City: [facility]. State: [place]. Not employed. Retired. Highest education level: high school graduate. Gender of partner(s): male. Hafsa Will " social history reviewed E&M reviewed today Hafsa Will " assessment of health literacy ([facility] 2014 Standards, 3C10) Adequate Hafsa Will [...] history E&M Single. Not homeless. Born in [facility]. City: [facility]. State: [place]. Not employed. Retired. Highest education level: high school graduate. Gender of partner(s): male. Priya Mars " social history reviewed E&M reviewed today Priya Mars " assessment of health literacy ([facility] 2014 Standards, 3C10) Adequate Priya Mars " [...] history E&M Single. Not homeless. Born in [facility]. City: [facility]. State: [place]. Not employed. Retired. Highest education level: high school graduate. Gender of partner(s): male. Alayna Chapman " social history reviewed E&M reviewed today Alayna Chapman " assessment of health literacy ([facility] 2014 Standards, 3C10) Adequate Alayna Chapman " passive cigarette smoke exposure Yes Alayna Chapman " smoking status former smoker Alayna Chapman time of call 04/24/2018 11:41 AM Gayle Serrano drug use, illicit Never Stephanie Isabel " alcohol use Currently Stephanie Chalo " social history E&M Single. Not homeless. Born in [facility]. City: [facility]. State: [place]. Not employed. Retired. Highest education level: high school graduate. Gender of partner(s): male. Stephanie Isabel " social history reviewed E&M reviewed today Stephanie Isabel " assessment of health literacy ([facility] 2014 Standards, 3C10) Adequate Stephanie Isabel [...] history E&M Single. Not homeless. Born in [facility]. City: [facility]. State: [place]. Not employed. Retired. Highest education level: high school graduate. Gender of partner(s): male. Alayna Chapman " social history reviewed E&M reviewed today Alayna Chapman " assessment of health literacy ([facility] 2014 Standards, 3C10) Adequate Alayna Chapman " passive cigarette smoke exposure No Alayna Chapman " smoking status former smoker Alayna Chapman " Exercise Program Referral T Alayna Chapman " Weight Management Counseling Provided T Alayna Chapman " Nutrition intervention T Alayna Chapman Exercise Program Referral T Jamarkwuemeka Moravian Nnabuife " Weight Management Counseling Provided T Chukwuemeka Moravian Nnabuife " Nutrition intervention T Chukwuemeka Moravian Nnabuife " alcohol use Currently Alayna Chapman " social history E&M Single. Not homeless. Born in [facility]. City: [facility]. State: [place]. Not employed. Retired. Highest education level: high school graduate. Gender of partner(s): male. Alayna Chapman " social history reviewed E&M reviewed today Alayna Chapman " assessment of health literacy ([facility] 2014 Standards, 3C10) Adequate Alayna Chapman " passive cigarette smoke exposure No Alayna Chapman " smoking status former smoker Alayna Chapman " assessment of health literacy ([facility] 2014 Standards, 3C10) Adequate Alayna Chapman " drug use, illicit Never Alayna Chapman " alcohol use Currently Alayna Chapman " social history E&M Single. Not homeless. Born in [facility]. City: [facility]. State: [place]. Not employed. Retired. Highest education level: high [...] Addendum Question 4, plan for suicide Yes Otma Woods " Suicide Addendum Question 3, try [...] history E&M Single. Not homeless. Born in [facility]. City: [facility]. State: [place]. Not employed. Retired. Highest education level: high school graduate. Gender of partner(s): male. Vivian Sin " social history reviewed E&M reviewed today Vivianmario Sin " passive cigarette smoke exposure No [...] history E&M Single. Not homeless. Born in [facility]. City: [facility]. State: [place]. Not employed. Retired. Highest education level: high [...] Edward Boyceuinasir " Nutrition intervention T Edward Whiteabuife " social history E&M Single. Not homeless. Born in [facility]. City: [facility]. State: [place]. Not employed. Retired. Highest [...] Donna Rousencio sunscreen use No Edward Roa Danny " social history E&M Single. Not homeless. Born in [facility]. City: [facility]. State: [place]. Not employed. Retired. Highest education level: high [...] history E&M Single. Not homeless. Born in [facility]. City: [facility]. State: [place]. Not employed. Retired. Highest education level: high school graduate. Gender of partner(s): male. Opallinda Magañajaki Delgado " social history reviewed E&M reviewed today Jamarodilia Crispin Delgado " Exercise Program Referral T [...] Parkerrez " smoking status former smoker Francesca Parkerrez social history E&M Single. Not homeless. Born in [facility]. City: [facility]. State: [place]. Not employed. Retired. Highest education level: high [...] history E&M Single. Not homeless. Born in [facility]. City: [facility]. State: [place]. Not employed. Retired. Highest education level: high [...] Activities of Daily Living (ADL) Independent Edward Whiteabui Activities of Daily Living (ADLs, IADLs, etc.) Decrease in ADL [facility] MENTAL STATUS Date Observation Value Provider assessment of judgment and insight E&M intact [facility]avian Nnabui " mental status examination: orientation E&M oriented to time, place, and person [facility] Nnabui " assessment of mood and affect E&M no depression, anxiety, or agitation [facility] " Generalized Anxiety Disorder Questionnaire - [...] place, and person [facility] Moravian Nnabuife " assessment of mood and affect E&M no depression, anxiety, or agitation [facility]abi[facility]mojose j [facility] [place] [facility] " Generalized Anxiety Disorder Questionnaire - Question 2 0 Francesca Diana " Generalized Anxiety Disorder Questionnaire - Question 1 0 Francesca Diana assessment of judgment and insight E&M intact [facility]avian Nnabui " mental status examination: orientation E&M oriented to time, place, and person [facility] ab[facility] " assessment of mood and affect E&M no depression, anxiety, or agitation [facility] Moravian abui " Generalized Anxiety Disorder Questionnaire - Question 2 0 Francesca Orozco Lebron " Generalized Anxiety Disorder Questionnaire - Question 1 0 Francesca Orozco Lebron assessment of judgment and insight E&M intact [facility] Moravian Nnabui " assessment of mood and affect E&M no depression, anxiety, or agitation [facility] Moravian Nnabui " mental status examination: orientation E&M oriented to time, place, and person [facility] Moravian Nnabui " Generalized Anxiety Disorder Questionnaire - Question 2 0 Nupur Chong " Generalized Anxiety Disorder Questionnaire - Question 1 0 Nupur Chong assessment of judgment and insight E&M intact [facility]avian Nnabui " mental status examination: orientation E&M oriented to time, place, and person [facility]oojse j Moravian Nnabuife " assessment of mood and affect E&M no depression, anxiety, or agitation [facility] Nnabui " Generalized Anxiety Disorder Questionnaire - Question 2 0 Stephanie Isabel " Generalized Anxiety Disorder Questionnaire - Question 1 0 tSephanie Isabel assessment of judgment and insight E&M intact Edward Moravian Nnabui " mental status examination: orientation E&M oriented to time, place, and person [facility] Moravian Nnabui " assessment of mood and affect E&M anxious, depressed mood [facility] " Generalized [...] assessment of judgment and insight E&M intact [facility]mo[facility]ose j Moravian Nnabui " mental status examination: orientation E&M oriented to time, place, and person [facility] " assessment of mood and affect E&M anxious, depressed mood [facility] Moravian [facility] " Generalized Anxiety Disorder Questionnaire - Question 2 0 Stephanie Chalo " Generalized Anxiety Disorder Questionnaire - Question 1 0 Stephanie Chalo assessment of judgment and insight E&M intact Edward Roa [facility] " mental status examination: orientation E&M oriented to time, place, and person [facility] Moravian abui " assessment of mood and affect E&M anxious, depressed mood [facility] Whiteabuife mental status examination: orientation [...] judgment and insight E&M intact Edward Roa [facility] [place] " mental status examination: orientation E&M oriented to time, place, and person [facility] Moravian abui " assessment of mood and affect E&M anxious, depressed mood [facility] Whiteabui assessment of judgment and insight E&M intact [facility] Moravian [facility] " mental status examination: orientation E&M oriented to time, place, and person [facility] Moravian abui " assessment of mood and affect E&M anxious, depressed mood [facility] " Generalized Anxiety Disorder Questionnaire - Question 2 0 Priya Mars " Generalized Anxiety Disorder Questionnaire - Question 1 0 Priya Mars assessment of judgment and insight E&M intact Edward Moravian abui " mental status examination: orientation E&M oriented to time, place, and person [facility] " assessment of mood and affect E&M anxious, depressed mood [facility] [place] " Generalized Anxiety Disorder Questionnaire - Question 2 0 Alayna Chapman " Generalized Anxiety Disorder Questionnaire - Question 1 0 Alayna Chapman assessment of judgment and insight E&M intact Edward [facility] " mental status examination: orientation E&M oriented to time, place, and person [facility] [place] [facility] " assessment of mood and affect E&M anxious, depressed mood [facility] [place] [place] " Generalized Anxiety Disorder Questionnaire - Question 2 0 Stephanie Isabel " Generalized Anxiety Disorder Questionnaire - Question 1 0 Stephanie Isabel assessment of judgment and insight E&M intact Edward [facility] [place] " mental status examination: orientation E&M oriented to time, place, and person [facility] Moravian abui " assessment of mood and affect E&M anxious, depressed mood [facility] [place] [place] " Generalized Anxiety Disorder Questionnaire - Question 2 0 Alayna Chapman " Generalized Anxiety Disorder Questionnaire - Question 1 0 Alayna Chapman assessment of judgment and insight E&M intact Edward [facility] [place] [place] " mental status examination: orientation E&M oriented to time, place, and person [facility] [place] " assessment of mood and affect E&M anxious, depressed mood [facility] Centeroidlia [facility] [place] " Generalized Anxiety Disorder Questionnaire - Question 2 0 Alayna Chapman " Generalized Anxiety Disorder Questionnaire - Question 1 0 Alayna Chapman assessment of judgment and insight E&M intact Edward [facility] [place] " mental status examination: orientation E&M oriented to time, place, and person [facility] Moravian abui " assessment of mood and affect E&M anxious, depressed mood [facility] Moravian Nnabui " Generalized Anxiety Disorder Questionnaire - Question 2 0 Alayna Chapman " Generalized Anxiety Disorder Questionnaire - Question 1 0 Alayna Chapman affect (mental status exam) anxious, blunted Tomamarilyn Woods " mental status assessment, judgment good Toma Holtz " insight (mental status exam) good Toma [...] mood and affect E&M anxious, depressed mood [facility] " assessment of judgment and insight E&M intact [facility] " mental status examination: orientation E&M oriented to time, place, and person [facility] " If any problems checked, how difficult [...] assessment of judgment and insight E&M intact [facility] " mental status examination: orientation E&M oriented to time, place, and person Chukwuemeka Moravian Nnabuife " assessment of mood and affect E&M no depression, anxiety, or agitation [facility] Nnabui " Generalized Anxiety Disorder Questionnaire - Question 2 0 Stephanie Isabel " Generalized Anxiety Disorder Questionnaire - Question 1 0 Stephanie Isabel Generalized Anxiety Disorder Questionnaire - Question 2 0 Nupur Chong " Generalized Anxiety Disorder Questionnaire - Question 1 0 Nupur Chong mental status examination: recall E&M intact for recent and remote events [facility] [place] " assessment of judgment and insight E&M intact [facility] [place] " mental status examination: orientation E&M oriented to time, place, and person [facility] " assessment of mood and affect E&M no depression, anxiety, or agitation [facility] " Generalized Anxiety Disorder Questionnaire [...] E&M intact for recent and remote events [facility] " mental status examination: orientation E&M oriented to time, place, and person [facility] " assessment of judgment and insight E&M intact [facility] " assessment of mood and affect E&M no depression, anxiety, or agitation [facility] Nn[facility] " Generalized Anxiety Disorder Questionnaire - Question 2 0 Taina Gu " Generalized Anxiety Disorder Questionnaire - Question 1 0 Taina Gu Generalized Anxiety Disorder Questionnaire - Question 2 0 Francesca Gamnio " Generalized Anxiety Disorder Questionnaire - Question [...] / Coverage type Covered alliance party ID [place] Medicare HMO Medicare HMO [id number] ADVANCE DIRECTIVES No Information Available TREATMENT PLAN [...] - - Est Patient Exp Problem - 66591 Est Patient Exp Problem - 17091 Est Patient Exp Problem - 49444 Finger Stick Glucose Est Patient Exp Problem - 91014 Est Patient Exp Problem - 85637 Est Patient Detailed - 04027 New Patient Intermediate Opth - 66374 Finger Stick Glucose Ear Irrigation Est Patient Exp Problem - 63680 Est Patient Exp Problem - 44826 Retinal Screening Est Patient Well Exam (40 - 64 Yrs) - 92117 Est Patient Detailed - 49388 Est Patient Exp Problem - 15067 Est Patient Exp Problem - 54359 New Patient Comprehensive - 02679 Glucose Stick Est Patient Exp Problem - 39935 Glucose Stick Est Patient Exp Problem - 22183 Prescription Assistance (Non-HIV) Glucose Stick Est Patient Exp Problem - 46731 Endocrinology - Adult - [facility] [place] HEMOGLOBIN A1C - In House Est Patient Exp Problem - 46746 Est Patient Detailed - 92754 Est Patient Exp Problem - 42958 Est Patient Detailed - 53947 IB 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 Diagnostic evaluation (no medical) - 86440 Integrated Behavioral Health Assessment (IB) Est Patient Exp Problem - 06767 Est Patient Detailed - 76120 Ofc Vst, Est Level V Est Patient Exp Problem - 20404 Est Patient Exp Problem - 73991 Ofc Vst, Est Level IV Est Patient Exp Problem - 62037 Ofc Vst, Est Level V Est Patient Exp Problem - 10039 Est Patient Detailed - 56320 Est Patient Detailed - 09094 ALBUTEROL INHAL ADMIN THRU DME 1MG Est Patient Detailed - 04025 Est Patient Exp Problem - 03333 Est Patient Exp Problem - 72431 Ear Irrigation Est Patient Exp Problem - 82789 Ofc Vst, Est Level III Est Patient Exp Problem - 74206 HISTORY OF PROCEDURES Procedure Date Procedure Name Provider Procedure Notes Status Finger Stick Glucose Gill Villafuerte completed New Patient Intermediate Opth - 00530 Satinder Harman completed Finger Stick Glucose Satinder Harman completed Ear Irrigation Satinder Harman completed Glucose Stick Gill Villafuerte completed Glucose Stick Satinder Ghazal completed Glucose Stick Gill Villafuerte completed HEMOGLOBIN A1C - In House Comfort Trevino completed [facility] 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
[2019-09-25 18:09] LABS: BASOPHILS % 0.3 % (0.0-1.0); EOSINOPHILS # (AUTO) 0.1 (0.0-0.4); EOSINOPHILS % 0.7 % (0.0-6.0); HEMATOCRIT 35.2 % (34.2-44.1); HEMOGLOBIN 10.8 g/dL (12.0-16.0); LYMPHOCYTES # (AUTO) 1.9 (1.0-3.2); LYMPHOCYTES % 16.8 % (18.0-39.1); MEAN CORPUSCULAR HEMOGLOBIN 29.2 pg (28-32); MEAN CORPUSCULAR HGB CONC 30.7 g/dL (31-35); MEAN CORPUSCULAR VOLUME 95.1 fL (81-99); MONOCYTES # (AUTO) 0.5 (0.2-0.8); MONOCYTES % 4.6 % (4.4-11.3); NEUTROPHILS # (AUTO) 8.6 (2.1-6.9); NEUTROPHILS % 76.1 % (38.7-80.0); PLATELET COUNT 431 x10e3/uL (140-360); RED CELL DISTRIBUTION WIDTH 13.6 % (11.7-14.4)
[2019-09-25 18:14] LABS: INR 0.91; PROTHROMBIN TIME 12.8 seconds (11.9-14.5)
[2019-09-25 18:24] LABS: ALANINE AMINOTRANSFERASE 48 IU/L (0-55); ALKALINE PHOSPHATASE 90 IU/L (40-150); AMYLASE 41 U/L (25-125); ANION GAP 13.6 mmol/L (8-16); BLOOD UREA NITROGEN 14 mg/dL (7-26); BUN/CREATININE RATIO 11 (6-25); CALCIUM 9.7 mg/dL (8.4-10.2); CARBON DIOXIDE 38 mmol/L (22-29); CHLORIDE 94 mmol/L (98-107); CREATINE KINASE 458 IU/L (29-168); CREATININE, SERUM 1.26 mg/dL (0.57-1.11); EST GLOMERULAR FILTRATION RATE 55 ML/MIN (60-); GLUCOSE 187 mg/dL (74-118); LIPASE 24 U/L (8-78); POTASSIUM 3.6 mmol/L (3.5-5.1); SODIUM 142 mmol/L (136-145)
--- NOTE | 2019-09-25 18:38 | Diagnostic Imaging Report ---
EXAM: CHEST SINGLE (PORTABLE) DATE: 09/25/2019 5:51 PM INDICATION: Fluid buildup, COPD ^ERMD ORDER ^[id number] ^1800 ^Y COMPARISON: None FINDINGS: Lines and tubes: None Cardiac silhouette is slightly enlarged. No focal pulmonary opacity, pleural effusion or pneumothorax. Mild central pulmonary vascular prominence. Lung bases are partially obscured by underpenetration. Upper abdomen unremarkable. No acute bony abnormality. IMPRESSION: Mild cardiomegaly. Mild central pulmonary vascular prominence. Signed by: Dr. Sidney Rondon M.D. on 09/25/2019 6:34 PM
== END 2019-09-25 20:15 | disposition home or self-care (01) ==
LOC: ER 17:30
DX: R06.00 Dyspnea, unspecified (principal); R14.0 Abdominal distension (gaseous); J44.9 Chronic obstructive pulmonary disease, unspecified; I50.9 Heart failure, unspecified; D86.9 Sarcoidosis, unspecified
CPT/HCPCS: 36415; 71045; 80053; 82150; 82550; 82553; 83690; 83880; 84484; 85025; 85610; 85730; 93005; 94640; 99284; J2930

== ENCOUNTER 2020-10-23 13:58 | Inpatient (IN) | payer MEDICARE, OTHER ==
[~2020-10-23] VITALS: Ht 160 cm; Wt 181.4 kg
[2020-10-23 14:39] LABS: BASOPHILS % 0.3 % (0.0-1.0); EOSINOPHILS % 0.4 % (0.0-6.0); HEMATOCRIT 38.6 % (34.2-44.1); HEMOGLOBIN 11.8 g/dL (12.0-16.0); LYMPHOCYTES # (AUTO) 1.4 (1.0-3.2); LYMPHOCYTES % 13.6 % (18.0-39.1); MEAN CORPUSCULAR HEMOGLOBIN 28.5 pg (28-32); MEAN CORPUSCULAR HGB CONC 30.6 g/dL (31-35); MEAN CORPUSCULAR VOLUME 93.2 fL (81-99); MONOCYTES # (AUTO) 0.3 (0.2-0.8); MONOCYTES % 3.2 % (4.4-11.3); NEUTROPHILS # (AUTO) 8.3 (2.1-6.9); PLATELET COUNT 451 x10e3/uL (140-360); RED BLOOD COUNT 4.14 x10e6/uL (3.6-5.1); RED CELL DISTRIBUTION WIDTH 13.3 % (11.7-14.4)
[2020-10-23 15:01] LABS: ALANINE AMINOTRANSFERASE 44 IU/L (0-55); ALBUMIN 3.9 g/dL (3.5-5.0); ALKALINE PHOSPHATASE 159 IU/L (40-150); ANION GAP 21.1 mmol/L (8-16); BLOOD UREA NITROGEN 10 mg/dL (7-26); BUN/CREATININE RATIO 9 (6-25); CALCIUM 8.7 mg/dL (8.4-10.2); CARBON DIOXIDE 35 mmol/L (22-29); CHLORIDE 90 mmol/L (98-107); CREATININE, SERUM 1.15 mg/dL (0.57-1.11); EST GLOMERULAR FILTRATION RATE > 60 ML/MIN (60-); GLUCOSE 374 mg/dL (74-118); POTASSIUM 3.1 mmol/L (3.5-5.1); SODIUM 143 mmol/L (136-145)
[2020-10-23] MEDS ORDERED: FUROSEMIDE INJ 10 MG/ML 4 ML VIAL IV ONE (15:15)
[2020-10-23 15:39] LABS: CLARITY,URINE SL CLOUDY (CLEAR); COLOR,URINE YELLOW (YELLOW); KETONES,URINE TRACE (NEGATIVE); LEUKOCYTE ESTERASE ,URINE TRACE (NEGATIVE); NITRITE,URINE NEGATIVE (NEGATIVE); PROTEIN,URINE DIPSTICK NEGATIVE (NEGATIVE); URINE UROBILINOGEN 0.2 mg/dL (0.2 - 1)
[2020-10-23 15:53] LABS: BACTERIA,URINE MODERATE /HPF; EPITHELIAL CELLS,URINE MANY /LPF; RBC,URINE 0-5 /HPF (0-5); WBC,URINE (MAN) 0-5 /HPF (0-5)
[2020-10-23 15:54] LABS: TRICHOMONAS,URINE MODERATE
[2020-10-23] MEDS ORDERED: SODIUM CHLORIDE 0.9% 50ML 50 ML ONE (16:48)
[2020-10-23] MEDS ORDERED: IOPAMIDOL 370 MG/ML 200 ML INFUS..BTL INJ ONE (16:48)
[2020-10-23] MEDS ORDERED: SODIUM CHLORIDE 0.9% 1000ML 1,000 ML IV STA (17:04)
[2020-10-23] MEDS: PIPERACILLIN/TAZOBAC 3.375 GM in SODIUM CHLORIDE 0.9% 50ML 50 ML IV SCH (17:35)
[2020-10-23] MEDS ORDERED: PROAIR HFA INH8.5 GM (17:40)
[2020-10-23] MEDS ORDERED: PREDNISONE20 MG PO (17:41)
[2020-10-23] MEDS ORDERED: PANTOPRAZOLE SO20 MG (17:41)
[2020-10-23] MEDS ORDERED: TORSEMIDE20 MG PO (17:42)
[2020-10-23] MEDS ORDERED: LIPITOR10 MG PO (17:44)
[2020-10-23] MEDS ORDERED: COMBIVENT RESPIM4 GM IH (17:44)
[2020-10-23] MEDS ORDERED: SYMBICORT 16010.2 GM INH (17:45)
[2020-10-23] MEDS ORDERED: METFORMIN HCL500 MG PO (17:46)
[2020-10-23] MEDS ORDERED: HUMALOG MI100 UNIT/2 SQ ×2 (17:46)
[2020-10-23] MEDS ORDERED: BUPROPION HCL150 M2 PO (17:47)
[2020-10-23] MEDS ORDERED: NALTREXONE HCL50 MG PO (17:48)
[2020-10-23 18:31] VITALS: BP 169/94
[2020-10-23 18:36] VITALS: BP 169/94
[2020-10-23 20:27] VITALS: BP 126/84
[2020-10-23 21:00] VITALS: BP 126/84
[2020-10-24] VITALS: BP 121/83
[2020-10-24 03:05] LABS: CREATINE KINASE MB 7.4 ng/mL (0-5.0)
[2020-10-24 04:00] VITALS: BP 132/83
[2020-10-24 05:15] VITALS: BP 126/84
[2020-10-24] MEDS ORDERED: METRONIDAZOLE 500 MG TAB PO ONE (05:30)
[2020-10-24] MEDS: PIPERACILLIN/TAZOBAC 3.375 GM in SODIUM CHLORIDE 0.9% 50ML 50 ML IV SCH ×3 (06:00)
[2020-10-24 06:22] LABS: BASOPHILS % 0.3 % (0.0-1.0); EOSINOPHILS # (AUTO) 0.3 (0.0-0.4); EOSINOPHILS % 3.2 % (0.0-6.0); HEMATOCRIT 38.5 % (34.2-44.1); HEMOGLOBIN 11.8 g/dL (12.0-16.0); LYMPHOCYTES # (AUTO) 2.7 (1.0-3.2); LYMPHOCYTES % 30.1 % (18.0-39.1); MEAN CORPUSCULAR HEMOGLOBIN 28.4 pg (28-32); MEAN CORPUSCULAR HGB CONC 30.6 g/dL (31-35); MEAN CORPUSCULAR VOLUME 92.8 fL (81-99); MONOCYTES # (AUTO) 0.8 (0.2-0.8); MONOCYTES % 8.9 % (4.4-11.3); NEUTROPHILS # (AUTO) 5.1 (2.1-6.9); NEUTROPHILS % 57.3 % (38.7-80.0); PLATELET COUNT 460 x10e3/uL (140-360); RED BLOOD COUNT 4.15 x10e6/uL (3.6-5.1); RED CELL DISTRIBUTION WIDTH 13.2 % (11.7-14.4)
[2020-10-24 06:47] LABS: ALANINE AMINOTRANSFERASE 46 IU/L (0-55); ALBUMIN 3.9 g/dL (3.5-5.0); ALKALINE PHOSPHATASE 174 IU/L (40-150); ANION GAP 16.5 mmol/L (8-16); BLOOD UREA NITROGEN 9 mg/dL (7-26); BUN/CREATININE RATIO 9 (6-25); CALCIUM 9.2 mg/dL (8.4-10.2); CARBON DIOXIDE 38 mmol/L (22-29); CHLORIDE 87 mmol/L (98-107); CREATININE, SERUM 1.01 mg/dL (0.57-1.11); EST GLOMERULAR FILTRATION RATE > 60 ML/MIN (60-); GLUCOSE 232 mg/dL (74-118); SODIUM 139 mmol/L (136-145)
[2020-10-24 06:53] LABS: POTASSIUM 2.5 mmol/L (3.5-5.1)
[2020-10-24 08:04] VITALS: BP 127/79
[2020-10-24] MEDS ORDERED: POTASSIUM CHLORIDE 20 MEQ TAB CR PO ONE ×2 (08:15→08:45)
[2020-10-24 09:00] VITALS: BP 127/79
[2020-10-24] MEDS ORDERED: METFORMIN HCL 500 MG TAB PO SCH (09:00)
[2020-10-24] MEDS ORDERED: TORSEMIDE 10 MG TAB PO SCH (09:00)
[2020-10-24] MEDS ORDERED: BUDESONIDE/FORMOTEROL 160/4.5MCG INHALER INH SCH (09:00)
[2020-10-24] MEDS ORDERED: BUPROPION HCL 100 MG PO SCH (09:00)
[2020-10-24] MEDS ORDERED: PREDNISONE 20 MG TAB PO SCH (09:00)
[2020-10-24] MEDS ORDERED: MACROBID 100 M100 MG PO (09:44)
[2020-10-24 10:26] LABS: CREATINE KINASE MB 7.9 ng/mL (0-5.0)
[2020-10-24] MEDS ORDERED: ATORVASTATIN 10 MG TAB PO SCH (21:00)
== END 2020-10-24 10:25 | disposition home or self-care (01) | DRG 291 ==
LOC: ER 14:25 → ERHOLD 17:04 → MED/SURG3 18:25
PROVIDERS: ADMIT Internal Medicine; ATTEND Internal Medicine
DX: I11.0 Hypertensive heart disease with heart failure (principal); J96.21 Acute and chronic respiratory failure with hypoxia; Z68.45 Body mass index [BMI] 70 or greater, adult; N39.0 Urinary tract infection, site not specified; I50.33 Acute on chronic diastolic (congestive) heart failure; J44.9 Chronic obstructive pulmonary disease, unspecified; E66.01 Morbid (severe) obesity due to excess calories; E11.9 Type 2 diabetes mellitus without complications; E78.5 Hyperlipidemia, unspecified; D64.9 Anemia, unspecified; Z20.822 Contact with and (suspected) exposure to COVID-19; G47.30 Sleep apnea, unspecified
CPT/HCPCS: 36415; 71045; 71260; 80053; 81001; 82550; 82553; 82948; 83605; 83880; 84484; 85025; 87040; 93005; 94660; 99284; J1940; J2543; J7030; J7512; Q9967; U0002

== ENCOUNTER 2021-02-05 11:05 | Inpatient (IN) | payer MEDICARE ==
[~2021-02-05] VITALS: Ht 152.4 cm; Wt 129.3 kg
[~2021-02-05 11:05] MED LIST: BUPROPION HCL150 M2 PO; COMBIVENT RESPIM4 GM IH; HUMALOG MI100 UNIT/2 SQ; LIPITOR10 MG PO; MACROBID 100 M100 MG PO; METFORMIN HCL500 MG PO; NALTREXONE HCL50 MG PO; PANTOPRAZOLE SO20 MG; PREDNISONE20 MG PO; PROAIR HFA INH8.5 GM; SYMBICORT 16010.2 GM INH; TORSEMIDE20 MG PO
[2021-02-05] MEDS ORDERED: DEXAMETHASONE SOD PHOS 10 MG/1 ML VIAL IV ONE (11:15)
[2021-02-05] MEDS ORDERED: LEVALBUTEROL HCL SOLN NEBU 1.25 MG/3 ML NEB INH ONE (11:15)
[2021-02-05] MEDS ORDERED: ACETAMINOPHEN 325 MG TAB PO ONE (11:15)
[2021-02-05] MEDS ORDERED: IPRATROPIUM BROMIDE 0.02% 2.5 ML NEB NEB ONE (11:15)
[2021-02-05] MEDS ORDERED: LEVALBUTEROL HCL SOLN NEBU 1.25 MG/3 ML NEB ONE (11:19)
[2021-02-05] MEDS ORDERED: IPRATROPIUM BROMIDE 0.02% 2.5 ML NEB ONE (11:20)
[2021-02-05 11:22] LABS: BASOPHILS % 0.2 % (0.0-1.0); HEMATOCRIT 39.3 % (34.2-44.1); HEMOGLOBIN 12.1 g/dL (12.0-16.0); LYMPHOCYTES # (AUTO) 1.8 (1.0-3.2); LYMPHOCYTES % 17.2 % (18.0-39.1); MEAN CORPUSCULAR HEMOGLOBIN 28.4 pg (28-32); MEAN CORPUSCULAR HGB CONC 30.8 g/dL (31-35); MEAN CORPUSCULAR VOLUME 92.3 fL (81-99); MONOCYTES # (AUTO) 0.4 (0.2-0.8); MONOCYTES % 3.9 % (4.4-11.3); NEUTROPHILS # (AUTO) 7.9 (2.1-6.9); PLATELET COUNT 292 x10e3/uL (140-360); RED BLOOD COUNT 4.26 x10e6/uL (3.6-5.1); RED CELL DISTRIBUTION WIDTH 13.4 % (11.7-14.4)
[2021-02-05] MEDS ORDERED: SODIUM CHLORIDE 0.9% 250ML 250 ML ONE (11:34)
[2021-02-05] MEDS: CEFTRIAXONE 1 GM in SODIUM CHLORIDE 0.9% 50ML 50 ML IV SCH (11:38)
[2021-02-05 11:41] LABS: INR 0.89; PROTHROMBIN TIME 12.2 seconds (11.9-14.5)
[2021-02-05 11:42] LABS: PARTIAL THROMBOPLASTIN TIME 30.6 seconds (23.8-35.5)
[2021-02-05 11:58] LABS: ALBUMIN 3.7 g/dL (3.5-5.0); ANION GAP 16.8 mmol/L (8-16); CALCIUM 8.9 mg/dL (8.4-10.2); CREATININE, SERUM 1.16 mg/dL (0.57-1.11); MAGNESIUM 1.5 MG/DL (1.3-2.1)
[2021-02-05 12:03] LABS: POTASSIUM 2.8 mmol/L (3.5-5.1)
[2021-02-05 12:19] LABS: CLARITY,URINE SL CLOUDY (CLEAR); COLOR,URINE YELLOW (YELLOW); KETONES,URINE NEGATIVE (NEGATIVE); LEUKOCYTE ESTERASE ,URINE TRACE (NEGATIVE); NITRITE,URINE NEGATIVE (NEGATIVE); PROTEIN,URINE DIPSTICK 2+ (NEGATIVE); RBC,URINE 0-5 /HPF (0-5); URINE UROBILINOGEN 1 mg/dL (0.2 - 1)
[2021-02-05 12:20] LABS: BACTERIA,URINE RARE /HPF; EPITHELIAL CELLS,URINE FEW /LPF; TRICHOMONAS,URINE MODERATE
[2021-02-05 12:21] LABS: CREATINE KINASE MB 1.8 ng/mL (0-5.0)
[2021-02-05] MEDS ORDERED: POTASSIUM CHLORIDE 20 MEQ TAB CR PO ONE ×2 (12:30→18:00)
[2021-02-05 12:31] LABS: ABG HCO3 44 mmol/L (22-26); ABG PCO2 51 mmHg (35-45); ABG PH 7.54 (7.35-7.45); ABG PO2 50 mmHg (80-105); ABG TCO2 45
[2021-02-05] MEDS ORDERED: POTASSIUM CHLORIDE 10MEQ/100ML 300 ML IV ONE (13:00)
[2021-02-05] MEDS ORDERED: IBUPROFEN 800MG/ 200ML 200 ML IV ONE ×2 (13:15→13:24)
[2021-02-05] MEDS ORDERED: ACETAMINOPHEN 325 MG TAB PO PRN (16:15)
[2021-02-05] MEDS ORDERED: SODIUM CHLORIDE 0.9% 500ML 500 ML IV ONE (16:15)
[2021-02-05] MEDS ORDERED: DEXTROSE 50% SYRINGE 50 ML IV PRN (16:15)
[2021-02-05] MEDS ORDERED: ALBUTEROL SULFATE HFA 8GM INHALATION AEROSOL INH PRN (16:15)
[2021-02-05] MEDS: ENOXAPARIN SOD INJ 40 MG/0.4 ML SYR SC SCH (16:45)
[2021-02-05] MEDS ORDERED: POTASSIUM CHLORIDE 20MEQ/100ML 100 ML IV ONE (16:45)
[2021-02-05] MEDS ORDERED: REMDESIVIR 200MG/NS 100ML 200 MG in SODIUM CHLORIDE 0.9% 100 ML 100 ML IV ONE (17:00)
[2021-02-05] MEDS: INSULIN REGULAR, HUMAN 100 UNIT/1 ML SQ SCH ×2 (17:20→21:45)
[2021-02-05 18:54] LABS: CREATINE KINASE MB 4.8 ng/mL (0-5.0)
[2021-02-05] MEDS: BUDESONIDE/FORMOTEROL 160/4.5MCG INHALER INH SCH (19:00)
[2021-02-05] MEDS ORDERED: INSULIN GLARGINE 100 UNITS/ML VIAL SQ SCH (21:00)
[2021-02-05] MEDS: ATORVASTATIN 40 MG TAB PO SCH (21:45)
[2021-02-06 06:59] LABS: BASOPHILS % 0.1 % (0.0-1.0); HEMATOCRIT 39.7 % (34.2-44.1); HEMOGLOBIN 12.1 g/dL (12.0-16.0); LYMPHOCYTES # (AUTO) 1.2 (1.0-3.2); LYMPHOCYTES % 15.4 % (18.0-39.1); MEAN CORPUSCULAR HEMOGLOBIN 28.3 pg (28-32); MEAN CORPUSCULAR HGB CONC 30.5 g/dL (31-35); MONOCYTES # (AUTO) 0.4 (0.2-0.8); MONOCYTES % 5.1 % (4.4-11.3); NEUTROPHILS # (AUTO) 5.9 (2.1-6.9); NEUTROPHILS % 78.6 % (38.7-80.0); PLATELET COUNT 294 x10e3/uL (140-360); RED BLOOD COUNT 4.27 x10e6/uL (3.6-5.1); RED CELL DISTRIBUTION WIDTH 13.4 % (11.7-14.4)
[2021-02-06] MEDS: BUDESONIDE/FORMOTEROL 160/4.5MCG INHALER INH SCH ×2 (07:00→19:00)
[2021-02-06 07:21] LABS: ALBUMIN 3.3 g/dL (3.5-5.0); ALBUMIN/GLOBULIN RATIO 0.7 (0.8-2.0); ANION GAP 16.3 mmol/L (8-16); CREATININE, SERUM 0.95 mg/dL (0.57-1.11); POTASSIUM 3.3 mmol/L (3.5-5.1)
[2021-02-06 07:29] LABS: CREATINE KINASE MB 3.6 ng/mL (0-5.0)
[2021-02-06] MEDS: INSULIN REGULAR, HUMAN 100 UNIT/1 ML SQ SCH ×2 (08:38→12:27)
[2021-02-06] MEDS ORDERED: POTASSIUM CHLORIDE 20 MEQ TAB CR PO ONE (10:15)
[2021-02-06] MEDS ORDERED: MAGNESIUM SULFATE 2GM/50ML 50 ML IV ONE (10:15)
[2021-02-06] MEDS: ASCORBIC ACID 500 MG TAB PO SCH (10:27)
[2021-02-06] MEDS: CEFTRIAXONE 1 GM in SODIUM CHLORIDE 0.9% 50ML 50 ML IV SCH (10:27)
[2021-02-06] MEDS: ZINC SULFATE 220 MG CAP PO SCH (10:27)
[2021-02-06] MEDS: CHOLECALCIFEROL 400 UNIT TAB PO SCH (10:27)
[2021-02-06] MEDS ORDERED: ONDANSETRON HCL INJ 2MG/ML 2ML 2 MG/ML VIAL IV PRN (10:30)
[2021-02-06] MEDS ORDERED: METOPROLOL TARTRATE INJ 1 MG/ML VIAL IV PRN (10:30)
[2021-02-06] MEDS: DEXAMETHASONE SOD PHOS 10 MG/1 ML VIAL IV SCH (11:24)
[2021-02-06 11:32] LABS: THYROID STIMULATING HORMONE 0.259 uIU/mL (0.350-4.940)
[2021-02-06 12:34] LABS: CREATINE KINASE MB 5.9 ng/mL (0-5.0)
[2021-02-06] MEDS ORDERED: SODIUM CHLORIDE 0.9% 250ML 500 ML ONE (12:37)
[2021-02-06] MEDS: REMDESIVIR 100MG/NS 100ML 100 MG in SODIUM CHLORIDE 0.9% 100 ML 100 ML IV SCH (14:26)
[2021-02-06] MEDS: CHOLESTYRAMINE 4 GM PACKET PO SCH ×2 (15:00→21:30)
[2021-02-06] MEDS ORDERED: FAMOTIDINE 20 MG TAB PO SCH (16:30)
[2021-02-06 16:42] VITALS: BP 138/90
[2021-02-06 16:44] VITALS: BP 138/90
[2021-02-06] MEDS ORDERED: BUPROPION HCL SR 150 MG TAB PO SCH (17:00)
[2021-02-06] MEDS: BUPROPION HCL 100 MG TAB PO SCH (17:00)
[2021-02-06] MEDS: TORSEMIDE 10 MG TAB PO SCH (17:00)
[2021-02-06] MEDS: METFORMIN HCL 500 MG TAB PO SCH (17:10)
[2021-02-06] MEDS: ENOXAPARIN SOD INJ 40 MG/0.4 ML SYR SC SCH (17:10)
[2021-02-06] MEDS: METRONIDAZOLE 500 MG TAB PO SCH (17:10)
[2021-02-06] MEDS: INSULIN LISPRO 100 UNIT/1 ML 3ML VIAL SQ SCH ×3 (17:17→21:33)
[2021-02-06] MEDS ORDERED: ACETAMIN/BUTALBITAL/CAFFEINE TAB PO PRN (19:00)
[2021-02-06] MEDS ORDERED: INS LISP PRO/LISP HUMAN 75/25 100 UNITS/ML VIAL SC SCH (21:00)
[2021-02-06] MEDS: INSULIN GLARGINE 100 UNITS/ML VIAL SQ SCH (21:00)
[2021-02-06] MEDS ORDERED: INSULIN LISPRO PROTAMINE SQ SCH (21:00)
[2021-02-06] MEDS ORDERED: [UNRECOGNIZED DRUG - OTHER] SQ SCH (21:00)
[2021-02-06] MEDS ORDERED: INSULIN LISPRO SQ SCH (21:00)
[2021-02-06] MEDS: ATORVASTATIN 40 MG TAB PO SCH (21:30)
[2021-02-06] MEDS: ACETAMINOPHEN 325 MG TAB PO PRN (23:03)
[2021-02-06] MEDS: TEMAZEPAM 15 MG CAP PO PRN (23:03)
[2021-02-07] VITALS (12 sets, daily range): BP systolic 113–137; BP diastolic 55–97
[2021-02-07 05:29] LABS: BASOPHILS % 0.2 % (0.0-1.0); HEMATOCRIT 38.3 % (34.2-44.1); HEMOGLOBIN 11.4 g/dL (12.0-16.0); LYMPHOCYTES # (AUTO) 1.5 (1.0-3.2); LYMPHOCYTES % 12.9 % (18.0-39.1); MEAN CORPUSCULAR HEMOGLOBIN 28.6 pg (28-32); MEAN CORPUSCULAR HGB CONC 29.8 g/dL (31-35); MONOCYTES # (AUTO) 0.4 (0.2-0.8); MONOCYTES % 3.8 % (4.4-11.3); NEUTROPHILS # (AUTO) 9.4 (2.1-6.9); NEUTROPHILS % 82.5 % (38.7-80.0); PLATELET COUNT 345 x10e3/uL (140-360); RED BLOOD COUNT 3.99 x10e6/uL (3.6-5.1); RED CELL DISTRIBUTION WIDTH 13.3 % (11.7-14.4)
[2021-02-07 05:51] LABS: ALBUMIN 3.2 g/dL (3.5-5.0); ALBUMIN/GLOBULIN RATIO 0.8 (0.8-2.0); ANION GAP 14.3 mmol/L (8-16); CALCIUM 9.2 mg/dL (8.4-10.2); CREATININE, SERUM 0.77 mg/dL (0.57-1.11); MAGNESIUM 2.3 MG/DL (1.3-2.1); PHOSPHORUS 3.7 MG/DL (2.3-4.7); POTASSIUM 3.3 mmol/L (3.5-5.1)
[2021-02-07] MEDS: BUDESONIDE/FORMOTEROL 160/4.5MCG INHALER INH SCH ×2 (06:11→19:00)
[2021-02-07] MEDS: INSULIN LISPRO 100 UNIT/1 ML 3ML VIAL SQ SCH ×7 (07:30→19:51)
[2021-02-07] MEDS ORDERED: SODIUM CHLORIDE 0.9% 250ML 250 ML ONE (08:39)
[2021-02-07] MEDS: CEFTRIAXONE 1 GM in SODIUM CHLORIDE 0.9% 50ML 50 ML IV SCH (08:45)
[2021-02-07] MEDS: CHOLESTYRAMINE 4 GM PACKET PO SCH ×3 (08:46→20:26)
[2021-02-07] MEDS: NALTREXONE HCL 50 MG PO SCH (08:46)
[2021-02-07] MEDS: ZINC SULFATE 220 MG CAP PO SCH (08:46)
[2021-02-07] MEDS: TORSEMIDE 10 MG TAB PO SCH ×2 (08:46→17:04)
[2021-02-07] MEDS: BUPROPION HCL 100 MG TAB PO SCH ×2 (08:46→17:04)
[2021-02-07] MEDS: METRONIDAZOLE 500 MG TAB PO SCH ×2 (08:46→17:04)
[2021-02-07] MEDS: CHOLECALCIFEROL 400 UNIT TAB PO SCH (08:46)
[2021-02-07] MEDS: ASCORBIC ACID 500 MG TAB PO SCH (08:46)
[2021-02-07] MEDS ORDERED: INS LISP PRO/LISP HUMAN 75/25 100 UNITS/ML VIAL SC SCH (09:00)
[2021-02-07] MEDS ORDERED: INSULIN LISPRO SQ SCH (09:00)
[2021-02-07] MEDS ORDERED: INSULIN LISPRO PROTAMINE SQ SCH (09:00)
[2021-02-07] MEDS ORDERED: [UNRECOGNIZED DRUG - OTHER] SQ SCH (09:00)
[2021-02-07] MEDS: METFORMIN HCL 500 MG TAB PO SCH (10:22)
[2021-02-07] MEDS: DEXAMETHASONE SOD PHOS 10 MG/1 ML VIAL IV SCH (12:04)
[2021-02-07] MEDS: REMDESIVIR 100MG/NS 100ML 100 MG in SODIUM CHLORIDE 0.9% 100 ML 100 ML IV SCH (15:21)
[2021-02-07] MEDS: ENOXAPARIN SOD INJ 40 MG/0.4 ML SYR SC SCH (17:04)
[2021-02-07] MEDS: ATORVASTATIN 40 MG TAB PO SCH (20:26)
[2021-02-07] MEDS: INSULIN GLARGINE 100 UNITS/ML VIAL SQ SCH (20:26)
[2021-02-07] MEDS: TEMAZEPAM 15 MG CAP PO PRN (20:50)
[2021-02-07] MEDS: POTASSIUM CHLORIDE 20 MEQ TAB CR PO SCH (21:01)
[2021-02-08] VITALS (10 sets, daily range): BP systolic 98–118; BP diastolic 64–83
[2021-02-08] MEDS: POTASSIUM CHLORIDE 20 MEQ TAB CR PO SCH (02:00)
[2021-02-08] MEDS: ACETAMINOPHEN 325 MG TAB PO PRN ×2 (03:00→21:30)
[2021-02-08 06:09] LABS: HEMATOCRIT 37.9 % (34.2-44.1); HEMOGLOBIN 11.5 g/dL (12.0-16.0); LYMPHOCYTES # (AUTO) 1.6 (1.0-3.2); LYMPHOCYTES % 18.9 % (18.0-39.1); MEAN CORPUSCULAR HEMOGLOBIN 28.9 pg (28-32); MEAN CORPUSCULAR HGB CONC 30.3 g/dL (31-35); MEAN CORPUSCULAR VOLUME 95.2 fL (81-99); MONOCYTES # (AUTO) 0.5 (0.2-0.8); MONOCYTES % 5.7 % (4.4-11.3); NEUTROPHILS # (AUTO) 6.2 (2.1-6.9); NEUTROPHILS % 74.4 % (38.7-80.0); PLATELET COUNT 411 x10e3/uL (140-360); RED BLOOD COUNT 3.98 x10e6/uL (3.6-5.1); RED CELL DISTRIBUTION WIDTH 13.2 % (11.7-14.4)
[2021-02-08 06:38] LABS: ALBUMIN 3.1 g/dL (3.5-5.0); ALBUMIN/GLOBULIN RATIO 0.7 (0.8-2.0); ANION GAP 18.8 mmol/L (8-16); CALCIUM 8.5 mg/dL (8.4-10.2); CREATININE, SERUM 0.85 mg/dL (0.57-1.11)
[2021-02-08 06:52] LABS: POTASSIUM 2.8 mmol/L (3.5-5.1)
[2021-02-08] MEDS ORDERED: POTASSIUM CHLORIDE 20 MEQ TAB CR PO STA (07:25)
[2021-02-08] MEDS ORDERED: POTASSIUM CHLORIDE 10MEQ/100ML 100 ML IV ONE ×2 (07:30→10:45)
[2021-02-08] MEDS: INSULIN LISPRO 100 UNIT/1 ML 3ML VIAL SQ SCH ×7 (07:30→21:00)
[2021-02-08] MEDS: ASCORBIC ACID 500 MG TAB PO SCH (08:03)
[2021-02-08] MEDS: ZINC SULFATE 220 MG CAP PO SCH (08:03)
[2021-02-08] MEDS: BUPROPION HCL 100 MG TAB PO SCH ×2 (08:03→16:44)
[2021-02-08] MEDS: TORSEMIDE 10 MG TAB PO SCH ×2 (08:03→16:44)
[2021-02-08] MEDS: BUDESONIDE/FORMOTEROL 160/4.5MCG INHALER INH SCH ×2 (08:03→19:35)
[2021-02-08] MEDS: METRONIDAZOLE 500 MG TAB PO SCH ×2 (08:03→16:44)
[2021-02-08] MEDS: CHOLESTYRAMINE 4 GM PACKET PO SCH ×3 (08:03→18:26)
[2021-02-08] MEDS: CHOLECALCIFEROL 400 UNIT TAB PO SCH (08:03)
[2021-02-08] MEDS: PANTOPRAZOLE SOD 40 MG TABEC PO SCH (08:05)
[2021-02-08] MEDS: CEFTRIAXONE 1 GM in SODIUM CHLORIDE 0.9% 50ML 50 ML IV SCH (08:05)
[2021-02-08] MEDS: NALTREXONE HCL 50 MG PO SCH (09:00)
[2021-02-08] MEDS ORDERED: POTASSIUM CHLORIDE 20 MEQ TAB CR PO NR ×2 (09:45→17:00)
[2021-02-08] MEDS: DEXAMETHASONE SOD PHOS 10 MG/1 ML VIAL IV SCH (10:51)
[2021-02-08] MEDS: REMDESIVIR 100MG/NS 100ML 100 MG in SODIUM CHLORIDE 0.9% 100 ML 100 ML IV SCH (14:12)
[2021-02-08] MEDS: ENOXAPARIN SOD INJ 40 MG/0.4 ML SYR SC SCH (16:44)
[2021-02-08] MEDS ORDERED: POTASSIUM CHLORIDE 20MEQ/100ML 200 ML IV ONE (17:00)
[2021-02-08] MEDS ORDERED: MAGNESIUM SULFATE 2GM/50ML IV ONE (17:00)
[2021-02-08] MEDS ORDERED: SALINE 0.65% NAS SOLN 1 SPRAY BTL PRN (18:15)
[2021-02-08] MEDS: ATORVASTATIN 40 MG TAB PO SCH (20:57)
[2021-02-08] MEDS: INSULIN GLARGINE 100 UNITS/ML VIAL SQ SCH (21:00)
[2021-02-08] MEDS: TEMAZEPAM 15 MG CAP PO PRN (21:29)
[2021-02-09] VITALS (11 sets, daily range): BP systolic 99–118; BP diastolic 56–95
[2021-02-09 05:01] LABS: BASOPHILS % 0.1 % (0.0-1.0); EOSINOPHILS % 0.5 % (0.0-6.0); HEMATOCRIT 39.4 % (34.2-44.1); LYMPHOCYTES # (AUTO) 1.9 (1.0-3.2); LYMPHOCYTES % 23.5 % (18.0-39.1); MEAN CORPUSCULAR HEMOGLOBIN 28.6 pg (28-32); MEAN CORPUSCULAR HGB CONC 30.5 g/dL (31-35); MEAN CORPUSCULAR VOLUME 93.8 fL (81-99); MONOCYTES # (AUTO) 0.6 (0.2-0.8); MONOCYTES % 6.9 % (4.4-11.3); NEUTROPHILS # (AUTO) 5.5 (2.1-6.9); NEUTROPHILS % 67.5 % (38.7-80.0); PLATELET COUNT 423 x10e3/uL (140-360); RED CELL DISTRIBUTION WIDTH 13.2 % (11.7-14.4)
[2021-02-09 05:25] LABS: ANION GAP 18.7 mmol/L (8-16); CALCIUM 8.1 mg/dL (8.4-10.2); CREATININE, SERUM 0.79 mg/dL (0.57-1.11)
[2021-02-09 05:27] LABS: POTASSIUM 2.7 mmol/L (3.5-5.1)
[2021-02-09] MEDS ORDERED: POTASSIUM CHLORIDE 20MEQ/100ML 100 ML IV ONE ×2 (07:30→10:00)
[2021-02-09] MEDS: INSULIN LISPRO 100 UNIT/1 ML 3ML VIAL SQ SCH ×7 (07:30→20:24)
[2021-02-09] MEDS ORDERED: POTASSIUM CHLORIDE 20 MEQ TAB CR PO ONE ×2 (07:30→20:46)
[2021-02-09] MEDS: PANTOPRAZOLE SOD 40 MG TABEC PO SCH (08:02)
[2021-02-09] MEDS: ZINC SULFATE 220 MG CAP PO SCH (08:02)
[2021-02-09] MEDS: METRONIDAZOLE 500 MG TAB PO SCH ×2 (08:03→16:58)
[2021-02-09] MEDS: TORSEMIDE 10 MG TAB PO SCH ×2 (08:03→16:57)
[2021-02-09] MEDS: BUPROPION HCL 100 MG TAB PO SCH ×2 (08:04→16:58)
[2021-02-09] MEDS: ASCORBIC ACID 500 MG TAB PO SCH (08:04)
[2021-02-09] MEDS: CHOLECALCIFEROL 400 UNIT TAB PO SCH (08:05)
[2021-02-09] MEDS: NALTREXONE HCL 50 MG PO SCH (08:29)
[2021-02-09] MEDS: CEFTRIAXONE 1 GM in SODIUM CHLORIDE 0.9% 50ML 50 ML IV SCH (08:53)
[2021-02-09] MEDS: CHOLESTYRAMINE 4 GM PACKET PO SCH ×3 (09:00→20:23)
[2021-02-09] MEDS: DEXAMETHASONE SOD PHOS 10 MG/1 ML VIAL IV SCH (11:13)
[2021-02-09] MEDS: REMDESIVIR 100MG/NS 100ML 100 MG in SODIUM CHLORIDE 0.9% 100 ML 100 ML IV SCH (15:05)
[2021-02-09] MEDS: FAMOTIDINE 20 MG/2 ML VIAL IV SCH (16:57)
[2021-02-09] MEDS: ENOXAPARIN SOD INJ 40 MG/0.4 ML SYR SC SCH (16:58)
[2021-02-09] MEDS: ATORVASTATIN 40 MG TAB PO SCH (20:23)
[2021-02-09] MEDS: INSULIN GLARGINE 100 UNITS/ML VIAL SQ SCH (20:25)
[2021-02-09] MEDS: BUDESONIDE/FORMOTEROL 160/4.5MCG INHALER INH SCH (20:25)
[2021-02-09] MEDS: TEMAZEPAM 15 MG CAP PO PRN (20:26)
[2021-02-09] MEDS: POTASSIUM CHLORIDE 20 MEQ TAB CR PO SCH (20:42)
[2021-02-09] MEDS: ACETAMINOPHEN 325 MG TAB PO PRN (20:43)
[2021-02-10] VITALS (12 sets, daily range): BP systolic 92–113; BP diastolic 62–85
[2021-02-10] MEDS: POTASSIUM CHLORIDE 20 MEQ TAB CR PO SCH (02:30)
[2021-02-10 05:25] LABS: BASOPHILS % 0.3 % (0.0-1.0); EOSINOPHILS # (AUTO) 0.1 (0.0-0.4); EOSINOPHILS % 0.9 % (0.0-6.0); HEMATOCRIT 38.1 % (34.2-44.1); HEMOGLOBIN 11.4 g/dL (12.0-16.0); LYMPHOCYTES # (AUTO) 2.1 (1.0-3.2); LYMPHOCYTES % 21.2 % (18.0-39.1); MEAN CORPUSCULAR HEMOGLOBIN 28.4 pg (28-32); MEAN CORPUSCULAR HGB CONC 29.9 g/dL (31-35); MEAN CORPUSCULAR VOLUME 94.8 fL (81-99); MONOCYTES # (AUTO) 0.6 (0.2-0.8); MONOCYTES % 6.5 % (4.4-11.3); NEUTROPHILS # (AUTO) 6.7 (2.1-6.9); NEUTROPHILS % 68.5 % (38.7-80.0); PLATELET COUNT 562 x10e3/uL (140-360); RED BLOOD COUNT 4.02 x10e6/uL (3.6-5.1); RED CELL DISTRIBUTION WIDTH 13.1 % (11.7-14.4)
[2021-02-10 05:51] LABS: ANION GAP 16.9 mmol/L (8-16); CALCIUM 8.2 mg/dL (8.4-10.2); CREATININE, SERUM 0.77 mg/dL (0.57-1.11)
[2021-02-10 05:53] LABS: POTASSIUM 2.9 mmol/L (3.5-5.1)
[2021-02-10] MEDS ORDERED: POTASSIUM CHLORIDE 20MEQ/100ML 100 ML IV ONE (06:30)
[2021-02-10] MEDS ORDERED: POTASSIUM CHLORIDE 20 MEQ TAB CR PO ONE ×2 (08:00→11:45)
[2021-02-10] MEDS: NALTREXONE HCL 50 MG PO SCH (09:00)
[2021-02-10] MEDS: CEFTRIAXONE 1 GM in SODIUM CHLORIDE 0.9% 50ML 50 ML IV SCH (09:33)
[2021-02-10] MEDS: FAMOTIDINE 20 MG/2 ML VIAL IV SCH ×2 (09:33→17:02)
[2021-02-10] MEDS: ASCORBIC ACID 500 MG TAB PO SCH (09:34)
[2021-02-10] MEDS: TORSEMIDE 10 MG TAB PO SCH ×2 (09:34→17:02)
[2021-02-10] MEDS: BUPROPION HCL 100 MG TAB PO SCH ×2 (09:34→17:02)
[2021-02-10] MEDS: METRONIDAZOLE 500 MG TAB PO SCH ×2 (09:34→17:02)
[2021-02-10] MEDS: CHOLESTYRAMINE 4 GM PACKET PO SCH ×3 (09:34→20:27)
[2021-02-10] MEDS: CHOLECALCIFEROL 400 UNIT TAB PO SCH (09:34)
[2021-02-10] MEDS: ZINC SULFATE 220 MG CAP PO SCH (09:35)
[2021-02-10] MEDS: PANTOPRAZOLE SOD 40 MG TABEC PO SCH (09:38)
[2021-02-10] MEDS: INSULIN LISPRO 100 UNIT/1 ML 3ML VIAL SQ SCH ×7 (09:41→20:29)
[2021-02-10] MEDS: BUDESONIDE/FORMOTEROL 160/4.5MCG INHALER INH SCH ×2 (10:14→19:00)
[2021-02-10] MEDS ORDERED: SODIUM CHLORIDE 0.9% 250ML 250 ML ONE (11:05)
[2021-02-10] MEDS ORDERED: POTASSIUM CHLORIDE 20MEQ/100ML 200 ML IV ONE (11:15)
[2021-02-10] MEDS ORDERED: ONDANSETRON HCL 4 MG ORAL DISINTEGRATING TAB PO PRN (11:30)
[2021-02-10] MEDS: DEXAMETHASONE SOD PHOS 10 MG/1 ML VIAL IV SCH (11:59)
[2021-02-10] MEDS ORDERED: ONDANSETRON HCL INJ 2MG/ML 2ML 2 MG/ML VIAL IV PRN (14:45)
[2021-02-10] MEDS: ENOXAPARIN SOD INJ 40 MG/0.4 ML SYR SC SCH (17:03)
[2021-02-10] MEDS: ATORVASTATIN 40 MG TAB PO SCH (20:27)
[2021-02-10] MEDS: ACETAMINOPHEN 325 MG TAB PO PRN (20:29)
[2021-02-10] MEDS: INSULIN GLARGINE 100 UNITS/ML VIAL SQ SCH (20:30)
[2021-02-11] VITALS (11 sets, daily range): BP systolic 102–118; BP diastolic 62–96
[2021-02-11 05:14] LABS: BASOPHILS % 0.2 % (0.0-1.0); EOSINOPHILS % 0.3 % (0.0-6.0); HEMATOCRIT 36.5 % (34.2-44.1); HEMOGLOBIN 11.1 g/dL (12.0-16.0); LYMPHOCYTES % 16.3 % (18.0-39.1); MEAN CORPUSCULAR HEMOGLOBIN 28.6 pg (28-32); MEAN CORPUSCULAR HGB CONC 30.4 g/dL (31-35); MEAN CORPUSCULAR VOLUME 94.1 fL (81-99); MONOCYTES # (AUTO) 0.6 (0.2-0.8); MONOCYTES % 5.3 % (4.4-11.3); NEUTROPHILS # (AUTO) 8.8 (2.1-6.9); NEUTROPHILS % 73.6 % (38.7-80.0); PLATELET COUNT 602 x10e3/uL (140-360); RED BLOOD COUNT 3.88 x10e6/uL (3.6-5.1); RED CELL DISTRIBUTION WIDTH 13.2 % (11.7-14.4)
[2021-02-11 05:33] LABS: ALBUMIN/GLOBULIN RATIO 0.7 (0.8-2.0); ANION GAP 17.3 mmol/L (8-16); CALCIUM 8.3 mg/dL (8.4-10.2); CREATININE, SERUM 0.84 mg/dL (0.57-1.11); POTASSIUM 3.3 mmol/L (3.5-5.1)
[2021-02-11] MEDS ORDERED: POTASSIUM CHLORIDE 20 MEQ TAB CR PO ONE (07:00)
[2021-02-11] MEDS: BUDESONIDE/FORMOTEROL 160/4.5MCG INHALER INH SCH ×2 (07:00→19:00)
[2021-02-11] MEDS: INSULIN LISPRO 100 UNIT/1 ML 3ML VIAL SQ SCH ×7 (07:30→21:51)
[2021-02-11] MEDS: NALTREXONE HCL 50 MG PO SCH (07:59)
[2021-02-11] MEDS: CHOLESTYRAMINE 4 GM PACKET PO SCH ×3 (07:59→21:00)
[2021-02-11] MEDS: CHOLECALCIFEROL 400 UNIT TAB PO SCH (08:40)
[2021-02-11] MEDS: TORSEMIDE 10 MG TAB PO SCH ×2 (08:40→16:41)
[2021-02-11] MEDS: METRONIDAZOLE 500 MG TAB PO SCH ×2 (08:40→16:41)
[2021-02-11] MEDS: PANTOPRAZOLE SOD 40 MG TABEC PO SCH (08:40)
[2021-02-11] MEDS: ZINC SULFATE 220 MG CAP PO SCH (08:40)
[2021-02-11] MEDS: BUPROPION HCL 100 MG TAB PO SCH ×2 (08:40→16:41)
[2021-02-11] MEDS: FAMOTIDINE 20 MG/2 ML VIAL IV SCH ×2 (08:40→16:41)
[2021-02-11] MEDS: ASCORBIC ACID 500 MG TAB PO SCH (08:40)
[2021-02-11] MEDS: DEXAMETHASONE SOD PHOS 10 MG/1 ML VIAL IV SCH (10:45)
[2021-02-11] MEDS: ENOXAPARIN SOD INJ 40 MG/0.4 ML SYR SC SCH (16:41)
[2021-02-11] MEDS: ATORVASTATIN 40 MG TAB PO SCH (21:50)
[2021-02-11] MEDS: INSULIN GLARGINE 100 UNITS/ML VIAL SQ SCH (21:51)
[2021-02-12] VITALS (9 sets, daily range): BP systolic 99–125; BP diastolic 70–94
[2021-02-12 05:49] LABS: BASOPHILS # (AUTO) 0.1 (0.0-0.1); BASOPHILS % 0.4 % (0.0-1.0); EOSINOPHILS # (AUTO) 0.2 (0.0-0.4); EOSINOPHILS % 1.2 % (0.0-6.0); HEMATOCRIT 36.5 % (34.2-44.1); LYMPHOCYTES % 21.7 % (18.0-39.1); MEAN CORPUSCULAR HEMOGLOBIN 28.3 pg (28-32); MEAN CORPUSCULAR HGB CONC 30.1 g/dL (31-35); MEAN CORPUSCULAR VOLUME 93.8 fL (81-99); MONOCYTES # (AUTO) 1.1 (0.2-0.8); MONOCYTES % 7.7 % (4.4-11.3); NEUTROPHILS # (AUTO) 8.7 (2.1-6.9); NEUTROPHILS % 63.5 % (38.7-80.0); PLATELET COUNT 675 x10e3/uL (140-360); RED BLOOD COUNT 3.89 x10e6/uL (3.6-5.1); RED CELL DISTRIBUTION WIDTH 13.2 % (11.7-14.4)
[2021-02-12 06:18] LABS: ANION GAP 16.8 mmol/L (8-16); CALCIUM 8.9 mg/dL (8.4-10.2); CREATININE, SERUM 0.83 mg/dL (0.57-1.11)
[2021-02-12 06:29] LABS: POTASSIUM 2.8 mmol/L (3.5-5.1)
[2021-02-12] MEDS ORDERED: POTASSIUM CHLORIDE 20MEQ/100ML 100 ML IV ONE (06:45)
[2021-02-12] MEDS: BUDESONIDE/FORMOTEROL 160/4.5MCG INHALER INH SCH (07:00)
[2021-02-12] MEDS ORDERED: POTASSIUM CHLORIDE 20 MEQ TAB CR PO ONE (07:00)
[2021-02-12] MEDS: INSULIN LISPRO 100 UNIT/1 ML 3ML VIAL SQ SCH ×4 (07:30→12:04)
[2021-02-12] MEDS: BUPROPION HCL 100 MG TAB PO SCH (08:44)
[2021-02-12] MEDS: CHOLECALCIFEROL 400 UNIT TAB PO SCH (08:44)
[2021-02-12] MEDS: PANTOPRAZOLE SOD 40 MG TABEC PO SCH (08:44)
[2021-02-12] MEDS: NALTREXONE HCL 50 MG PO SCH (08:44)
[2021-02-12] MEDS: ASCORBIC ACID 500 MG TAB PO SCH (08:44)
[2021-02-12] MEDS: ZINC SULFATE 220 MG CAP PO SCH (08:44)
[2021-02-12] MEDS: METRONIDAZOLE 500 MG TAB PO SCH (08:44)
[2021-02-12] MEDS: TORSEMIDE 10 MG TAB PO SCH (08:44)
[2021-02-12] MEDS: CHOLESTYRAMINE 4 GM PACKET PO SCH ×2 (08:44→11:04)
[2021-02-12] MEDS ORDERED: FAMOTIDINE 20 MG TAB PO SCH (09:00)
[2021-02-12] MEDS: DEXAMETHASONE SOD PHOS 10 MG/1 ML VIAL IV SCH (10:04)
[2021-02-12] MEDS ORDERED: DOXYCYCLINE HY100 MG PO (11:40)
[2021-02-12] MEDS ORDERED: POTASSIUM CHLO20 ME1 PO (12:03)
[2021-02-12] MEDS ORDERED: INSULIN LISPRO 100 UNIT/1 ML 3ML VIAL SQ SCH (16:30)
[2021-02-13] MEDS ORDERED: FAMOTIDINE 20 MG TAB PO SCH (07:30)
== END 2021-02-12 13:10 | disposition home or self-care (01) | DRG 177 ==
LOC: ER 11:11 → ERHOLD 13:45 → IMCU 02-06 16:22
PROVIDERS: ADMIT Internal Medicine; ATTEND Internal Medicine
PROC: 8E0ZXY6 Isolation (ICD-10-PCS; principal; 2021-02-05)
PROC: XW043E5 Introduction of Remdesivir Anti-infective into Central Vein, Percutaneous Approach, New Technology Group 5 (ICD-10-PCS; 2021-02-05)
PROC: XW033E5 Introduction of Remdesivir Anti-infective into Peripheral Vein, Percutaneous Approach, New Technology Group 5 (ICD-10-PCS; 2021-02-06)
PROC: 02HV33Z Insertion of Infusion Device into Superior Vena Cava, Percutaneous Approach (ICD-10-PCS; 2021-02-06)
DX: U07.1 COVID-19 (principal); J96.00 Acute respiratory failure, unspecified whether with hypoxia or hypercapnia; J12.9 Viral pneumonia, unspecified; J96.21 Acute and chronic respiratory failure with hypoxia; J96.22 Acute and chronic respiratory failure with hypercapnia; J44.0 Chronic obstructive pulmonary disease with (acute) lower respiratory infection; J44.1 Chronic obstructive pulmonary disease with (acute) exacerbation; A08.39 Other viral enteritis; Z68.43 Body mass index [BMI] 50.0-59.9, adult; E87.1 Hypo-osmolality and hyponatremia; E11.9 Type 2 diabetes mellitus without complications; K21.9 Gastro-esophageal reflux disease without esophagitis; E78.5 Hyperlipidemia, unspecified; Z99.81 Dependence on supplemental oxygen; E66.01 Morbid (severe) obesity due to excess calories; E11.65 Type 2 diabetes mellitus with hyperglycemia; E83.42 Hypomagnesemia; E87.6 Hypokalemia; G47.33 Obstructive sleep apnea (adult) (pediatric); J45.30 Mild persistent asthma, uncomplicated; E87.8 Other disorders of electrolyte and fluid balance, not elsewhere classified; D86.9 Sarcoidosis, unspecified; A59.01 Trichomonal vulvovaginitis; G43.909 Migraine, unspecified, not intractable, without status migrainosus
CPT/HCPCS: 36415; 36569; 36600; 51700; 71045; 76700; 80048; 80053; 80061; 81001; 82088; 82533; 82550; 82553; 82728; 82805; 82948; 83036; 83735; 83880; 84100; 84244; 84439; 84443; 84484; 85025; 85610; 85730; 86140; 87040; 93005; 93306; 94640; 94660; 96372; 99285; J0456; J0696; J1100; J1650; J1815; J1817; J2405; J3475; J3480; J7040; J7050; Q0162; U0002

== ENCOUNTER 2021-09-16 15:00 | Observation (INO) | payer MEDICARE ==
[~2021-09-16] VITALS: Ht 152.4 cm; Wt 129.3 kg
[~2021-09-16 15:00] MED LIST changes: +DOXYCYCLINE HY100 MG PO; +POTASSIUM CHLO20 ME1 PO
[2021-09-16 15:43] LABS: BASOPHILS % 0.3 % (0.0-1.0); EOSINOPHILS % 0.2 % (0.0-6.0); HEMATOCRIT 42.2 % (34.2-44.1); HEMOGLOBIN 13.3 g/dL (12.0-16.0); LYMPHOCYTES # (AUTO) 1.9 (1.0-3.2); LYMPHOCYTES % 18.3 % (18.0-39.1); MEAN CORPUSCULAR HGB CONC 31.5 g/dL (31-35); MEAN CORPUSCULAR VOLUME 92.1 fL (81-99); MONOCYTES # (AUTO) 0.4 (0.2-0.8); MONOCYTES % 3.4 % (4.4-11.3); NEUTROPHILS # (AUTO) 8.2 (2.1-6.9); PLATELET COUNT 443 x10e3/uL (140-360); RED BLOOD COUNT 4.58 x10e6/uL (3.6-5.1); RED CELL DISTRIBUTION WIDTH 12.5 % (11.7-14.4)
[2021-09-16 16:01] LABS: ALBUMIN 4.2 g/dL (3.5-5.0); ANION GAP 20.3 mmol/L (8-16); CALCIUM 10.4 mg/dL (8.4-10.2); CREATININE, SERUM 1.47 mg/dL (0.57-1.11); POTASSIUM 3.3 mmol/L (3.5-5.1)
[2021-09-16 16:07] LABS: CREATINE KINASE MB 5.6 ng/mL (0-5.0)
[2021-09-16] MEDS ORDERED: INSULIN REGULAR, HUMAN 100 UNIT/1 ML IV ONE (16:15)
[2021-09-16] MEDS ORDERED: FUROSEMIDE INJ 10 MG/ML 4 ML VIAL IV ONE (16:15)
[2021-09-16 16:43] LABS: ABG PCO2 50 mmHg (35-45); ABG PH 7.48 (7.35-7.45)
[2021-09-16 16:44] LABS: ABG HCO3 37 mmol/L (22-26); ABG PO2 83 mmHg (80-105); ABG TCO2 38
[2021-09-16] MEDS ORDERED: ASPIRIN 81 MG CHEW TAB PO ONE (17:00)
[2021-09-16] MEDS ORDERED: POTASSIUM CHLORIDE 20 MEQ TAB CR PO STA (19:02)
[2021-09-16] MEDS ORDERED: DEXTROSE 50% SYRINGE 50 ML IV PRN (19:15)
[2021-09-16] MEDS ORDERED: ALBUTEROL/IPRATROPIUM 3 ML NEB NEB PRN (19:15)
[2021-09-16] MEDS: FUROSEMIDE INJ 10 MG/ML 4 ML VIAL IV SCH (20:04)
[2021-09-16] MEDS ORDERED: ATORVASTATIN 40 MG TAB PO SCH (21:00)
[2021-09-16] MEDS: INSULIN LISPRO 100 UNIT/1 ML 3ML VIAL SQ SCH (21:00)
[2021-09-16] MEDS ORDERED: INSULIN GLARGINE 100 UNITS/ML VIAL SQ SCH (21:00)
[2021-09-16] MEDS ORDERED: CEFTRIAXONE 1 GM in SODIUM CHLORIDE 0.9% 50ML 50 ML IV SCH (21:00)
[2021-09-16 21:11] VITALS: BP 121/95
[2021-09-16 22:00] VITALS: BP 121/95
[2021-09-16] MEDS ORDERED: SODIUM CHLORIDE 0.9% 250ML 250 ML ONE (22:53)
[2021-09-16] MEDS ORDERED: POLYETHYLENE GLYCOL 3350 17 GM PACK PO PRN (23:15)
[2021-09-16] MEDS ORDERED: ACETAMINOPHEN 325 MG TAB PO PRN (23:30)
[2021-09-17] VITALS: BP 124/87
[2021-09-17 00:16] LABS: CREATINE KINASE MB 4.1 ng/mL (0-5.0)
[2021-09-17 04:00] VITALS: BP 113/78
[2021-09-17] MEDS: HEPARIN SOD (PORCINE) 5,000 UNIT/ML VIAL SC SCH ×2 (05:26→13:27)
[2021-09-17 05:40] LABS: BASOPHILS % 0.3 % (0.0-1.0); EOSINOPHILS # (AUTO) 0.3 (0.0-0.4); EOSINOPHILS % 2.3 % (0.0-6.0); HEMATOCRIT 37.8 % (34.2-44.1); LYMPHOCYTES % 34.4 % (18.0-39.1); MEAN CORPUSCULAR HEMOGLOBIN 29.5 pg (28-32); MEAN CORPUSCULAR HGB CONC 31.7 g/dL (31-35); MEAN CORPUSCULAR VOLUME 92.9 fL (81-99); MONOCYTES # (AUTO) 0.7 (0.2-0.8); MONOCYTES % 6.4 % (4.4-11.3); NEUTROPHILS # (AUTO) 6.4 (2.1-6.9); NEUTROPHILS % 55.9 % (38.7-80.0); PLATELET COUNT 385 x10e3/uL (140-360); RED BLOOD COUNT 4.07 x10e6/uL (3.6-5.1); RED CELL DISTRIBUTION WIDTH 12.3 % (11.7-14.4)
[2021-09-17 05:52] LABS: INR 0.89; PROTHROMBIN TIME 12.9 seconds (11.9-14.5)
[2021-09-17 05:53] LABS: PARTIAL THROMBOPLASTIN TIME 25.4 seconds (23.8-35.5)
[2021-09-17 06:35] LABS: ALBUMIN 3.7 g/dL (3.5-5.0); ANION GAP 17.8 mmol/L (8-16); CALCIUM 10.1 mg/dL (8.4-10.2); CREATININE, SERUM 0.96 mg/dL (0.57-1.11); MAGNESIUM 1.9 MG/DL (1.3-2.1)
[2021-09-17 06:49] LABS: POTASSIUM 2.8 mmol/L (3.5-5.1)
[2021-09-17] MEDS: INSULIN LISPRO 100 UNIT/1 ML 3ML VIAL SQ SCH ×3 (07:30→16:30)
[2021-09-17] MEDS ORDERED: POTASSIUM CHLORIDE 20 MEQ TAB CR PO ONE ×3 (08:30→15:30)
[2021-09-17] MEDS ORDERED: DOCUSATE SODIUM 100 MG CAP PO SCH (09:00)
[2021-09-17] MEDS ORDERED: SENNOSIDES 8.6 MG TAB PO SCH (09:00)
[2021-09-17] MEDS: FUROSEMIDE INJ 10 MG/ML 4 ML VIAL IV SCH (09:23)
[2021-09-17 09:55] VITALS: BP 113/78
[2021-09-17 11:11] LABS: CREATINE KINASE MB 5.2 ng/mL (0-5.0)
[2021-09-17 12:00] VITALS: BP 113/73
[2021-09-17 14:32] LABS: ANION GAP 14.1 mmol/L (8-16); CALCIUM 10.4 mg/dL (8.4-10.2); CREATININE, SERUM 1.17 mg/dL (0.57-1.11); POTASSIUM 3.1 mmol/L (3.5-5.1)
[2021-09-17] MEDS ORDERED: AUGMENTIN 500-1 EACH PO (15:04)
[2021-09-17] MEDS ORDERED: HUMALOG MI100 UNIT/2 SQ (15:04)
[2021-09-17] MEDS ORDERED: ZITHROMAX500 MG PO (15:04)
[2021-09-17] MEDS ORDERED: INSULIN LISPRO 100 UNIT/1 ML 3ML VIAL SQ SCH (15:30)
[2021-09-17 15:53] VITALS: BP 91/59
== END 2021-09-17 17:54 | disposition home or self-care (01) ==
LOC: ER 15:20 → ERHOLD 16:50 → INTOOBSV 16:50 → MED/SURG2 20:00
PROVIDERS: ADMIT Internal Medicine; ATTEND Internal Medicine
DX: E87.70 Fluid overload, unspecified (principal); I13.0 Hypertensive heart and chronic kidney disease with heart failure and stage 1 through stage 4 chronic kidney disease, or unspecified chronic kidney disease; J44.9 Chronic obstructive pulmonary disease, unspecified; G43.909 Migraine, unspecified, not intractable, without status migrainosus; E78.5 Hyperlipidemia, unspecified; Z68.43 Body mass index [BMI] 50.0-59.9, adult; I50.9 Heart failure, unspecified; E11.65 Type 2 diabetes mellitus with hyperglycemia; E11.22 Type 2 diabetes mellitus with diabetic chronic kidney disease; N18.9 Chronic kidney disease, unspecified; N17.9 Acute kidney failure, unspecified; E66.01 Morbid (severe) obesity due to excess calories; Z88.1 Allergy status to other antibiotic agents; Z88.5 Allergy status to narcotic agent; Z20.822 Contact with and (suspected) exposure to COVID-19; Z79.4 Long term (current) use of insulin
CPT/HCPCS: 36415 ×2; 36600; 71045; 80048; 80053 ×2; 82550 ×2; 82553 ×2; 82805; 82947; 82948 ×2; 83036; 83605 ×2; 83735; 83880; 84484 ×2; 85025 ×2; 85610; 85730; 87040; 93005; 93306; 94799 ×2; 99251; 99284; G0378 ×2; J0456; J0696; J1644; J1815; J1817; J1940 ×2; J7050; U0002

== ENCOUNTER → 2022-05-06 | Outpatient (CLI) | payer MEDICARE ==
[~2022-05-06] MED LIST changes: +AUGMENTIN 500-1 EACH PO; +GABAPENTIN300 MG PO; +ZITHROMAX500 MG PO
== END ==
LOC: RAD 14:35
PROVIDERS: ATTEND Internal Medicine Critical Care Medicine
DX: D86.9 Sarcoidosis, unspecified (principal)
CPT/HCPCS: 71046

== ENCOUNTER 2022-05-12 08:18 | Emergency (ER) | payer MEDICARE ==
[~2022-05-12] VITALS: Ht 152.4 cm; Wt 129.3 kg
[~2022-05-12 08:18] MED LIST changes: -GABAPENTIN300 MG PO
[2022-05-12] MEDS ORDERED: GABAPENTIN300 MG PO (08:57)
== END 2022-05-12 09:13 | disposition home or self-care (01) ==
LOC: ER 08:21
DX: M79.671 Pain in right foot (principal); E11.40 Type 2 diabetes mellitus with diabetic neuropathy, unspecified; J44.9 Chronic obstructive pulmonary disease, unspecified; I50.9 Heart failure, unspecified; E78.5 Hyperlipidemia, unspecified; K21.9 Gastro-esophageal reflux disease without esophagitis; D86.9 Sarcoidosis, unspecified
CPT/HCPCS: 99282

== ENCOUNTER → 2022-05-19 | Outpatient (CLI) | payer MEDICARE ==
[~2022-05-19] MED LIST changes: +GABAPENTIN300 MG PO
== END ==
LOC: RAD 15:28
PROVIDERS: ATTEND Internal Medicine
DX: M79.671 Pain in right foot (principal)

== ENCOUNTER 2022-08-12 09:54 | Emergency (ER) | payer MEDICARE ==
[~2022-08-12] VITALS: Ht 152.4 cm; Wt 118.4 kg
[2022-08-12] MEDS ORDERED: NAPROXEN250 MG PO (11:23)
[2022-08-12] MEDS ORDERED: DOXYCYCLINE HY100 MG PO (11:23)
== END 2022-08-12 12:00 | disposition home or self-care (01) ==
LOC: ER 10:07
DX: M25.522 Pain in left elbow (principal); M70.22 Olecranon bursitis, left elbow; E11.40 Type 2 diabetes mellitus with diabetic neuropathy, unspecified; J44.9 Chronic obstructive pulmonary disease, unspecified; I50.9 Heart failure, unspecified; E78.5 Hyperlipidemia, unspecified; K21.9 Gastro-esophageal reflux disease without esophagitis
CPT/HCPCS: 99283

== ENCOUNTER → 2022-09-03 | Outpatient (CLI) | payer MEDICARE ==
[~2022-09-03] MED LIST changes: +NAPROXEN250 MG PO
== END ==
LOC: RAD 15:40
PROVIDERS: ATTEND Internal Medicine
DX: M79.671 Pain in right foot (principal); M10.271 Drug-induced gout, right ankle and foot; D86.0 Sarcoidosis of lung; I50.9 Heart failure, unspecified

== ENCOUNTER → 2022-12-02 | Outpatient (CLI) | payer MEDICARE | LOC: RAD 10:51 | PROVIDERS: ATTEND Pain Medicine Interventional Pain Medicine | DX: M47.812 Spondylosis without myelopathy or radiculopathy, cervical region (principal); M47.817 Spondylosis without myelopathy or radiculopathy, lumbosacral region | CPT/HCPCS: 72050; 72110 ==

== ENCOUNTER → 2022-12-02 | Outpatient (CLI) | payer MEDICARE | LOC: RAD 11:29 | PROVIDERS: ATTEND Internal Medicine Rheumatology | DX: M1A.09X0 Idiopathic chronic gout, multiple sites, without tophus (tophi) (principal); M79.672 Pain in left foot; M79.671 Pain in right foot ==

== ENCOUNTER 2023-11-16 13:25 | Emergency (ER) | payer MEDICARE ==
[~2023-11-16] VITALS: Ht 152.4 cm; Wt 117.0 kg
[2023-11-16 14:00] VITALS: O2SAT 100
== END 2023-11-16 14:29 | disposition home or self-care (01) ==
LOC: ER 14:00
DX: M79.89 Other specified soft tissue disorders (principal); E11.40 Type 2 diabetes mellitus with diabetic neuropathy, unspecified; J44.9 Chronic obstructive pulmonary disease, unspecified; I50.9 Heart failure, unspecified; E78.5 Hyperlipidemia, unspecified; K21.9 Gastro-esophageal reflux disease without esophagitis; D86.9 Sarcoidosis, unspecified; M10.9 Gout, unspecified
CPT/HCPCS: 99282

== ENCOUNTER → 2024-05-17 | Outpatient (REF) | payer MEDICARE | LOC: RAD 12:42 | PROVIDERS: ATTEND Internal Medicine Rheumatology | DX: M1A.09X0 Idiopathic chronic gout, multiple sites, without tophus (tophi) (principal); M25.522 Pain in left elbow; M25.521 Pain in right elbow; D86.9 Sarcoidosis, unspecified; R23.4 Changes in skin texture; R76.8 Other specified abnormal immunological findings in serum ==

== ENCOUNTER 2025-02-24 09:44 | Emergency (ER) | payer MEDICARE ==
[~2025-02-24] VITALS: Ht 152.4 cm; Wt 117.0 kg
[2025-02-24 10:53] VITALS: PULSE 86; RESP 16; TEMP 98.3; O2SAT 100
[2025-02-24] MEDS ORDERED: METHOCARBAMOL750 MG PO (11:16)
== END 2025-02-24 11:35 | disposition home or self-care (01) ==
LOC: ER 11:17
DX: M25.512 Pain in left shoulder (principal); M54.2 Cervicalgia; M54.6 Pain in thoracic spine; X50.1XXA Overexertion from prolonged static or awkward postures, initial encounter; Y92.89 Other specified places as the place of occurrence of the external cause; E11.40 Type 2 diabetes mellitus with diabetic neuropathy, unspecified; E78.5 Hyperlipidemia, unspecified; J44.9 Chronic obstructive pulmonary disease, unspecified; K21.9 Gastro-esophageal reflux disease without esophagitis; M10.9 Gout, unspecified; D86.9 Sarcoidosis, unspecified
CPT/HCPCS: 99282